=== PATIENT | female | born 1960 | race Caucasian/White ===

== ENCOUNTER → 2016-05-17 | Outpatient (CLI) | payer OTHER ==
--- NOTE | 2016-05-17 11:07 | US ---
EXAMINATION TYPE: US abdomen complete DATE OF EXAM: 05/17/2016 10:13 AM COMPARISON: No previous CLINICAL HISTORY: Intermittent epigastric pain and N/V x 1 year, history of cholecystectomy. EXAM MEASUREMENTS: Liver Length: 13.7cm Gallbladder Wall: surgically absent CBD: 0.4cm Spleen: 10.5cm Right Kidney: 10.2 x 5.9 x 5.5cm Left Kidney: 11.3 x 4.8 x 4.7cm TECHNOLOGIST IMPRESSION: Pancreas: visualized portions wnl, head and tail limited by overlying bowel gas Liver: slightly heterogeneous echotexture Gallbladder: Surgically absent Evidence for sonographic Dinh's sign: No CBD: visualized portions wnl, limited distally by overlying bowel gas Spleen: Within normal limits Right Kidney: 2.3 x 2.0 x 2.3cm isoechoic vascular area inferior pole Left Kidney: Within normal limits Upper IVC: Within normal limits Abd Aorta: visualized portions wnl, limited by overlying bowel gas IMPRESSION: 1. Nonspecific pattern of the liver can be seen with hepatitis or hepatocellular disease including he patitis. 2. Status post cholecystectomy with the common bile duct measuring within normal limits. 3. There is a 2.3 cm isoechoic nodule involving the inferior pole the right kidney recommend follow-u p CT scan or MRI for further evaluation to exclude mass versus lobulated cortex. Normal Values: Liver Length: < 16cm wnl, 17-18cm upper limits, >18cm enlarged Spleen Length = < 13cm Renal Length = 9 - 12cm GB Wall: < 0.3cm CBD: < 0.6cm or < 1.0cm post cholecystectomy
--- NOTE | 2016-05-17 11:30 | MM ---
Reason for exam: history of breast augmentation, asymptomatic. Last mammogram was performed 4 years and 2 months ago. History: Pre-pectoral saline implants in both breasts, September 2004. Took hormonal contraceptives for 4 years beginning at age 18. Physical Findings: Nurse did not find any significant physical abnormalities on exam. MG Diag Mamm Implants LUDIN w CAD Bilateral CC, MLO, and ID view(s) were taken. Prior study comparison: March 18, 2012, CAD bilateral diagnostic mammogram. August 08, 2010, CAD bilateral diagnostic mammogram. There are scattered fibroglandular densities. Finding: There are typically benign calcifications in both breasts. Abnormal morphology of implants correlate for implant injury. These results were verbally communicated with the patient and result sheet given to the patient on 05/17/16. ASSESSMENT: Incomplete: need additional imaging evaluation, BI-RAD 0 RECOMMENDATION: Breast MRI of both breasts.
--- NOTE | 2016-05-17 12:15 | XR ---
EXAMINATION TYPE: XR chest 2V DATE OF EXAM: 05/17/2016 9:39 AM COMPARISON: Prior chest x-ray third of April 2011 HISTORY: Dizziness, weakness, abdominal pain, smoker TECHNIQUE: Frontal and lateral views of the chest are obtained. FINDINGS: Linear areas of increased attenuation may represent pleural thickening, scarring. Post res t prosthesis change noted incidentally, surgical clips in the upper abdomen. No pneumothorax or pleur al effusion. Cardiac mediastinal silhouette, pulmonary vascularity and iván within normal limits acco unting for rotation. No evident pneumonia. IMPRESSION: No acute cardiopulmonary process.
== END | disposition home or self-care (01) ==
LOC: RADUSWWP 09:19
PROVIDERS: ATTEND Family Medicine
DX: R92.8 Other abnormal and inconclusive findings on diagnostic imaging of breast (principal); N28.89 Other specified disorders of kidney and ureter; R10.10 Upper abdominal pain, unspecified
CPT/HCPCS: 71020; 76700; G0204

== ENCOUNTER → 2016-05-31 | Outpatient (CLI) | payer OTHER ==
--- NOTE | 2016-05-31 08:57 | CT ---
EXAMINATION TYPE: CT abdomen w con DATE OF EXAM: 05/31/2016 8:30 AM REFERENCE: Previous ultrasound dated 05/17/2016. HISTORY: R19.00 intra abdominal swelling HISTORY: Abn US of liver and kidney REFERENCE: NONE CT DLP: 1159 mGy Automated exposure control for dose reduction was used. TECHNIQUE: Helical acquisition through the abdomen and pelvis was obtained following the oral ingesti on of with Oral Contrast and following intravenous administration of 100 mL of Omnipaque 300. The mora a was reformatted in axial, coronal and sagittal projections. FINDINGS: There is a small amount of right basilar airspace disease which may represent atelectasis or pneumonia. There is some atelectatic change present in the right middle lobe. There is no pleural fluid. There is some pericardial thickening measuring 9 mm which may represent thickening or fluid. Within the abdomen, the gallbladder has been removed. The liver and spleen are normal. Both adrenal glands are normal. Both kidneys demonstrate function and appear morphologically normal. No mass lesion is seen in the in ferior pole of the right kidney. The pancreas is unremarkable. There is no significant retroperitoneal adenopathy. There is moderate fecal stasis within the colon. Small bowel loops are normal. No free fluid and no free air is seen. IMPRESSION: 1. NO RENAL LESION IS IDENTIFIED. 2. RIGHT BASILAR AIRSPACE DISEASE MAY REPRESENT ATELECTASIS OR PNEUMONIA. 3. 9 MM OF PERICARDIAL THICKENING OR FLUID. 4. STATUS POST CHOLECYSTECTOMY. 5. MODERATE FECAL STASIS.
== END | disposition home or self-care (01) ==
LOC: RADCTMAIN 07:32
PROVIDERS: ATTEND Family Medicine
DX: K56.41 Fecal impaction (principal); Z90.49 Acquired absence of other specified parts of digestive tract
CPT/HCPCS: 74160; 36415; Q9967

== ENCOUNTER → 2016-06-06 | Outpatient (CLI) | payer OTHER ==
--- NOTE | 2016-06-11 14:56 | BMR ---
EXAMINATION TYPE: MR breast BILAT wo/w con DATE OF EXAM: 06/06/2016 11:45 AM COMPARISON: Mammogram dated 17 May 2016 HISTORY: abn findings on diagnostic imaging of breast TECHNIQUE: A series of fat and water weighted images in the long and short axis views of both breasts are obtained in conjunction with dynamic contrast MRI with subtraction technique. The patient was i njected with 15 mL intravenous MultiHance gadolinium contrast. Three-dimensional and additional pos tprocessing imaging is created on independent workstation and reviewed during official interpretation of this study. REFERENCE: Current mammogram FINDINGS: The right and left breast show predominantly fatty replaced appearance. There is no suspici ous adenopathy within the axilla. Bilateral saline breast implants are noted. Calcification within th e left breast causes some susceptibility artifact anterior to the breast implant. The distortion of t he breast implant on the left is noted on MRI and is compatible with intracapsular rupture. There is no extracapsular rupture, no extravasation of either breast implant is noted. There is some redundanc y also noted within the right implant which may represent an intracapsular rupture as well versus senait e contraction of the capsule causing some redundancy. There is no suspicious enhancement on dynamic imaging. No evident suspicious mass like enhancement. IMPRESSION: Bilateral benign breast MRI, BI-RADS 2. Findings suggest intracapsular rupture on the left, possibly on the right.
== END | disposition home or self-care (01) ==
LOC: RADMRIMAIN 10:04
PROVIDERS: ATTEND Family Medicine
DX: R92.8 Other abnormal and inconclusive findings on diagnostic imaging of breast (principal)
CPT/HCPCS: 0159T; C8908; A9577; 77059

== ENCOUNTER → 2018-01-02 | Outpatient (CLI) | payer OTHER ==
--- NOTE | 2018-01-03 13:42 | CT ---
EXAMINATION TYPE: CT abdomen w con DATE OF EXAM: 01/02/2018 COMPARISON: CT abdomen 05/31/2016 HISTORY: Abdominal pain CT DLP: 630.2 mGycm Automated exposure control for dose reduction was used. TECHNIQUE: Helical acquisition of images was performed from the lung bases through the top of iliac crest to include entire abdomen. CONTRAST: Performed with Oral Contrast and with IV Contrast, patient injected with 100 mL of Isovue M300. FINDINGS: Mass at the inferior aspect of the left breast incompletely visualized on prior exam is not seen on today's exam and likely related to breast implant. LUNG BASES: No significant abnormality is appreciated. LIVER/GB: Liver shows low attenuation likely due to hepatic steatosis, patient is post cholecystectom y.. PANCREAS: No significant abnormality is seen. SPLEEN: No significant abnormality is seen. ADRENALS: No significant abnormality is seen. KIDNEYS: No significant abnormality is seen. BOWEL: Postop changes are noted in the midline to the bowel as on prior no evident bowel obstruction . Contrast has not coursed distally within the small bowel possibly due to timing of the contrast inj ection however. The appendix is seen, large lipoma at the level of the terminal ileum is noted as on prior. LYMPH NODES: No significant abnormality is appreciated. OSSEOUS STRUCTURES: No significant abnormality is seen. FREE AIR: No Free Air visible ASCITES: None visible. RETROPERITONEAL ADENOPATHY: No Retroperitoneal Adenopathy visible. OTHER: Atheromatous change is mild within the aorta. IMPRESSION: NO ACUTE ABNORMALITY. POSTOP CHANGES. POSSIBLE HEPATIC STEATOSIS. ADDITIONAL FINDINGS ABOVE.
== END | disposition home or self-care (01) ==
LOC: RADCTMAIN 17:00
PROVIDERS: ATTEND Family Medicine
DX: I70.0 Atherosclerosis of aorta (principal); R93.2 Abnormal findings on diagnostic imaging of liver and biliary tract; D17.39 Benign lipomatous neoplasm of skin and subcutaneous tissue of other sites; Z90.49 Acquired absence of other specified parts of digestive tract; Z98.890 Other specified postprocedural states
CPT/HCPCS: 74160; Q9967

== ENCOUNTER → 2018-01-26 | Outpatient (CLI) | payer OTHER ==
[2018-01-26 15:18] VITALS: BP 113/71; PULSE 94; BMI 30.9
--- NOTE | 2018-01-26 16:02 | P.GSHP ---
History of Present Illness H&P Date: 01/26/18 The patient is a 57 year old white female with a complaint of right breast soreness at the inferior aspect of the breast. She also complains of white discharge from the nipple recently. She has bilateral breast implants since 2004, this was done for cosmesis. On her most recent radiograph which was an MRI done May 2016 there was some concern of intracapsular rupture on the left and possibly also on the right. The patient is not complainng of any masses in her breast. Family History: 1. paternal grandmother: lung cancer 2. paternal grandfather: leukemia 3. maternal grandfather: ? cancer between heart and lung Hormonal history: Menarche: 14 Pregnancies: 4 pregnancies, 4 children, first born at 24, patient breast fed all of her children Menopause: 53 control pills:none hormones: none Past Surgical History: 1. 2. gallbladder 3. bowel resection - blockage no cancer, hernia's Past medical history: 1. depression Social smoke: 1PPD for 40 years alcohol: none drugs: none - Constitutional Constitutional: Reports sweats - EENT Eyes: denies blurred vision, denies pain Ears: deny: decreased hearing, tinnitus Ears, nose, mouth and throat: Denies headache, Denies sore throat - Breasts Breasts: bilateral: as per HPI - Cardiovascular Cardiovascular: Denies chest pain, Denies shortness of breath - Respiratory Comment: smoker Respiratory: Reports cough - Gastrointestinal Gastrointestinal: Reports abdominal pain - Genitourinary (Female) Genitourinary: Denies dysuria, Denies hematuria - Menstruation Menstruation: Reports postmenopausal - Musculoskeletal Musculoskeletal: Denies myalgias - Integumentary Integumentary: Reports rash, Denies pruritus - Neurological Neurological: Denies numbness, Denies weakness - Psychiatric Psychiatric: Reports depression - Endocrine Endocrine: Denies fatigue, Denies weight change - Hematologic/Lymphatic Comment: none - Allergic/Immunologic Comment: none Past Medical History Past Medical History: GERD/Reflux Additional Past Medical History / Comment(s): DIARRHEA., HAVING PAIN IN STOMACH ,REFLUX WITH NAUSEA AND VOMITING. History of Any Multi-Drug Resistant Organisms: None Reported Past Surgical History: Appendectomy, Bowel Resection, Section, Cholecystectomy, Hernia Repair, Tubal Ligation Additional Past Surgical History / Comment(s): HERNIATED BOWEL REQUIRED BOWEL RESECTION. Past Anesthesia/Blood Transfusion Reactions: No Reported Reaction Additional Past Anesthesia/Blood Transfusion Reaction / Comment(s): HX OF BLOOD TRANSFUSION-NO REACTION Past Psychological History: Anxiety, Bipolar, Depression Additional Psychological History / Comment(s): NO PRIOR COMPLICATIONS WITH BLOOD TRANSFUSION Smoking Status: Current every day smoker Past Alcohol Use History: None Reported Additional Past Alcohol Use History / Comment(s): STARTED SMOKING AT AGE 18. SMOKES 1/2-1 PPD. Past Drug Use History: None Reported - Past Family History Mother Family Medical History: No Reported History Father Additional Family Medical History / Comment(s): COMMITTED SUICIDE AT AGE 28 Medications and Allergies Home Medications Medication Instructions Recorded Confirmed Type ALPRAZolam [Xanax] 1 mg PO TID PRN 02/15/15 01/26/18 History QUEtiapine [SEROquel] 400 mg PO HS 02/15/15 01/26/18 History lamoTRIgine [LaMICtal] 100 mg PO HS 01/16/16 01/26/18 History Allergies Allergy/AdvReac Type Severity Reaction Status Date / Time No Known Allergies Allergy Verified 01/18/16 12:03 Surgical - Exam Vital Signs Pulse BP Pulse Ox 94 113/71 99 01/26/18 15:12 01/26/18 15:12 01/26/18 15:12 - General well developed, well nourished, no distress - Eyes normal ocular movement, no icteric - ENT no hearing loss, no congestion - Neck no masses, trachea midline - Respiratory normal respiratory effort, clear to auscultation - Cardiovascular Rhythm: regular Heart Sounds: normal: S1, S2 - Abdomen Abdomen: soft, non tender, no guarding, no rigid, no rebound - Neurologic no disoriented, no combative - Musculoskeletal normal gait, normal posture - Psychiatric oriented to time, oriented to person, oriented to place, speech is normal, memory intact Breast examination: Right breast: Multi-positional exam reveals scars from prior breast lift and implant the patient has an implant in place which appears to be in a unusual location causing some problems with the contour of the breast Right axilla: No adenopathy of concern Left breast: Multi-positional exam reveals scars from prior breast lift and implant placement, the implant appears to be in a unusual location again causing some problems with the contour of the breast Left axilla: No adenopathy of concern Assessment and Plan Assessment: Impression: 1. Bilateral breast implants possibly some defect in the contour of the implants 2. Abnormal contour the breast related to implant placement 3. Fibrocystic breast changes 4. Nicotine dependence 5. Depression Plan: 1. Would get bilateral diagnostic breast mammograms to be followed as possible by breast MRI 2. I have had discussion with the patient regarding removal of the implants 3. Medical management of depression 4. Follow-up Dr. Meléndez after bilateral mammograms/breast MRI Cc: Dr. Eaton
== END ==
LOC: WWCWWP 14:31
PROVIDERS: ATTEND Surgery
DX: Z53.9 Procedure and treatment not carried out, unspecified reason (principal)

== ENCOUNTER → 2018-02-04 | Outpatient (CLI) | payer OTHER ==
--- NOTE | 2018-02-05 09:39 | MM ---
Reason for exam: additional evaluation requested from prior study. Last mammogram was performed 1 year and 9 months ago. History: Pre-pectoral saline implants in both breasts, September 2004. Took hormonal contraceptives for 4 years beginning at age 18. Physical Findings: Nurse did not find any significant physical abnormalities on exam. MG Diag Mamm Implants LUDIN w CAD Bilateral CC, MLO, and ID view(s) were taken. Prior study comparison: May 17, 2016, bilateral MG diag mamm implants LUDIN w CAD. March 18, 2012, CAD bilateral diagnostic mammogram. The breast tissue is heterogeneously dense. This may lower the sensitivity of mammography. Stable benign calcifications. Bilateral implants are intact. No significant new findings when compared with previous films. These results were verbally communicated with the patient and result sheet given to the patient on 02/04/18. ASSESSMENT: Benign, BI-RAD 2 RECOMMENDATION: Routine screening mammogram of both breasts in 1 year. Manage patient on a clinical basis.
== END | disposition home or self-care (01) ==
LOC: RADMAMWWP 14:26
PROVIDERS: ATTEND Surgery
DX: N64.4 Mastodynia (principal); R92.8 Other abnormal and inconclusive findings on diagnostic imaging of breast
CPT/HCPCS: 77066

== ENCOUNTER → 2018-02-12 | Outpatient (CLI) | payer OTHER ==
[2018-02-12 15:30] VITALS: BP 102/65; PULSE 95; BMI 29.2
--- NOTE | 2018-02-12 16:03 | P.PN ---
Subjective Progress Note Date: 02/12/18 The patient comes in today for results of her mammogram. Bilateral mammogram was performed [id number]. The bilateral mammogram has stable benign calcifications. Bilateral implants are intact. At this time the patient does not have complaints related to her breast or the implants. The implants have an unusual contour however at this time they're not bothering the patient. She did not have breast MRI but there is no indication on mammogram report that the implants are ruptured. Time we will follow the patient conservatively. She does not wish the implants to be removed as she is concerned about the contour of her breast if they were removed. We will therefore follow conservatively. The patient notices anything of concern she will call us immediately. Impression: 1. Bilateral saline breast implants possibly some defect in the contour of the implants not noted on recent mammogram 2. Fibrocystic breast changes 3. Nicotine dependence 4. Depression Plan: 1. Repeat bilateral mammogram and physician exam in 1 year 2. At this time patient does not wish the implants to be removed 3. At this time the patient does not wish to pursue breast MRI to help determine if the implants are ruptured CC: Dr. Eaton Objective - Vital Signs Vital signs: Vital Signs Temp Pulse 95 02/12/18 15:17 Resp BP 102/65 02/12/18 15:17 Pulse Ox 98 02/12/18 15:17 Intake & Output 02/11/18 02/12/18 02/12/18 18:59 06:59 18:59 Weight 74.843 kg
== END | disposition home or self-care (01) ==
LOC: WWCWWP 14:55
PROVIDERS: ATTEND Surgery
DX: Z53.9 Procedure and treatment not carried out, unspecified reason (principal)

== ENCOUNTER 2019-12-09 08:49 | Day surgery (SDC) | payer OTHER ==
[2019-12-07 15:46] VITALS: BMI 29.0
[~2019-12-09 08:49] MED LIST: LACTATED RINGERS 1,000 ML IV SCH; LIDOCAINE 1% (10MG/ML) FOR IV START INTRADERMA PRN
[2019-12-09 09:23] VITALS: RESP 16; TEMP 97.7
[2019-12-09] MEDS ORDERED: LIDOCAINE 1% INJ 10MG/ML (20 ML MDV) ONE (10:18)
[2019-12-09] MEDS ORDERED: PROPOFOL 10 MG/ML 20 ML VIAL IV ONE (10:18)
--- NOTE | 2019-12-09 10:20 | P.GSHP ---
History of Present Illness H&P Date: 12/09/19 Chief Complaint: History of colon polyps, peptic ulcer disease This a 59-year-old female referred from Dr. mtz. Patient has safer EGD and colonoscopy. She's history of colon polyps and peptic ulcer disease Past Medical History Past Medical History: GERD/Reflux Additional Past Medical History / Comment(s): CHANGE IN BOWEL MOVEMENTS., HAVING PAIN IN STOMACH ,REFLUX WITH NAUSEA AND VOMITING. History of Any Multi-Drug Resistant Organisms: None Reported Past Surgical History: Appendectomy, Bowel Resection, Breast Surgery, Section, Cholecystectomy, Hernia Repair, Tubal Ligation Additional Past Surgical History / Comment(s): HERNIATED BOWEL REQUIRED BOWEL RESECTION., BREAST IMPLANTS, Past Anesthesia/Blood Transfusion Reactions: No Reported Reaction Additional Past Anesthesia/Blood Transfusion Reaction / Comment(s): HX OF BLOOD TRANSFUSION-NO REACTION Smoking Status: Current every day smoker - Past Family History Mother Family Medical History: No Reported History Father Additional Family Medical History / Comment(s): COMMITTED SUICIDE AT AGE 28 Medications and Allergies Home Medications Medication Instructions Recorded Confirmed Type Doxepin [SINEquan] 25 mg PO HS 12/07/19 12/07/19 History OXcarbazepine [Trileptal] 300 mg PO HS 12/07/19 12/07/19 History QUEtiapine FUMARATE [SEROquel] 900 mg PO HS 12/07/19 12/07/19 History lamoTRIgine [LaMICtal] 200 mg PO DAILY 12/07/19 12/07/19 History Allergies Allergy/AdvReac Type Severity Reaction Status Date / Time No Known Allergies Allergy Verified 12/09/19 09:11 Surgical - Exam Vital Signs Temp Pulse Resp BP Pulse Ox 97.7 F 102 H 16 110/63 96 12/09/19 09:17 12/09/19 09:17 12/09/19 09:17 12/09/19 09:17 12/09/19 09:17 - General well developed, well nourished, no distress - Eyes PERRL - ENT normal pinna - Neck no masses - Respiratory normal expansion - Cardiovascular Rhythm: regular - Abdomen Abdomen: soft, non tender Assessment and Plan Assessment: History of peptic ulcer disease and colon polyps. We'll perform EGD colonoscopy.
--- NOTE | 2019-12-09 10:44 | P.OP ---
Date of Procedure: 12/09/19 Preoperative Diagnosis: History of colon polyps History of peptic ulcer disease Postoperative Diagnosis: Antral gastritis Right colon polyp Mild diverticulosis Procedure(s) Performed: EGD Colonoscopy Anesthesia: MAC Surgeon: Darron Bonilla Pathology: other (Antrum, right colon polyp) Disposition: PACU Description of Procedure: The patient's placed on the endoscopy table in the lateral position. She received IV sedation. The gastroscope placed oropharynx and passed in the esophagus into the stomach. Scope was then placed through the pylorus. The first and second portion of the duodenum appeared normal. Scope was then brought back the antrum this. Mildly inflamed. A biopsies performed. The scope was unretroflexed and remainder of the stomach appeared normal. The GE junction was at 40 cm the distal esophagus appeared normal. The proximal esophagus. Normal. Scope was withdrawn for patient. Next digital rectal exam was performed which revealed a few external hemorrhoids. The flexible colonoscope was then placed patient anus passed throughout the entire colon. The ileocecal valve was visualized. The cecum, appeared normal. In the right colon there was a small polyp was removed with the snare. The remainder the ascending colon transverse colon appeared normal. In the descending and sigmoid colon there was mild diverticulosis. Scope was then brought back the rectum and this appeared normal. Scope withdrawn for patient.
[2019-12-09 11:02] VITALS: BP 114/72; PULSE 85
== END 2019-12-09 11:11 | disposition home or self-care (01) ==
LOC: ORWHC2ENDO 08:49
PROVIDERS: ATTEND Surgery
DX: Z12.11 Encounter for screening for malignant neoplasm of colon (principal); K63.5 Polyp of colon; K57.30 Diverticulosis of large intestine without perforation or abscess without bleeding; K64.4 Residual hemorrhoidal skin tags; K29.50 Unspecified chronic gastritis without bleeding; K21.9 Gastro-esophageal reflux disease without esophagitis; F17.210 Nicotine dependence, cigarettes, uncomplicated; F32.9 Major depressive disorder, single episode, unspecified; Z87.11 Personal history of peptic ulcer disease; Z90.49 Acquired absence of other specified parts of digestive tract; Z98.51 Tubal ligation status; Z98.890 Other specified postprocedural states; Z79.899 Other long term (current) drug therapy
CPT/HCPCS: 88305; 45385; 43239; J2001; J2704

== ENCOUNTER → 2020-04-20 | Outpatient (CLI) | payer OTHER ==
[2020-04-20 14:12] VITALS: BP 128/84; PULSE 87; RESP 18; TEMP 97.9
--- NOTE | 2020-04-20 15:04 | P.PN ---
Subjective Progress Note Date: 04/20/20 Principal diagnosis: ruptured breast implant The patient is a 60 year old white female with a complaint of bilateral breast implants the left side which has a ruptured as per the patient and possibly also rupture on the right. On her most recent radiograph which was an MRI done May 2016 there was some concern of intracapsular rupture on the left and possibly also on the right. She does not feel any lumps masses or nodules in her breast. She has not had a mammogram for several years. The change in the character of the left breast seems to have occurred over the last 2 months. The implants were placed into thousand and 5 days her saline implants and a prepectoral. Her breasts are very difficult to examine either on physical exam or radiographically to rule out a cancer secondary to the implants. Breasts are asymmetric secondary to the left breast implant being ruptured, and hard firm contracture on the right. Caffeine: diet pepsi 40-80 oz/day Nicotine: 1 1/2 PPD for 40 years Theophylline: rarely Family History: 1. paternal grandmother: lung cancer 2. paternal grandfather: leukemia 3. maternal grandfather: ? cancer between heart and lung Hormonal history: Menarche: 14 Pregnancies: 4 pregnancies, 4 children, first born at 24, patient breast fed all of her children Menopause: 53 control pills:none hormones: none Past Surgical History: 1. 2. gallbladder 3. bowel resection - blockage no cancer, hernia's Past medical history: 1. depression 2. ? ruptured breast implants Social smoke: 1PPD for 40 years alcohol: none drugs: none - Constitutional Constitutional: Reports sweats - EENT Eyes: denies blurred vision, denies pain Ears: deny: decreased hearing, tinnitus Ears, nose, mouth and throat: Denies headache, Denies sore throat - Breasts Breasts: bilateral: as per HPI - Cardiovascular Cardiovascular: Denies chest pain, Denies shortness of breath - Respiratory Comment: smoker Respiratory: Reports cough - Gastrointestinal Gastrointestinal: Reports abdominal pain - Genitourinary (Female) Genitourinary: Denies dysuria, Denies hematuria - Menstruation Menstruation: Reports postmenopausal - Musculoskeletal Musculoskeletal: Denies myalgias - Integumentary Integumentary: Reports rash, Denies pruritus - Neurological Neurological: Denies numbness, Denies weakness - Psychiatric Psychiatric: Reports depression - Endocrine Endocrine: Denies fatigue, Denies weight change - Hematologic/Lymphatic Comment: none - Allergic/Immunologic Comment: none Objective - Vital Signs Vital signs: Vital Signs Temp 97.9 F 04/20/20 14:09 Pulse 87 04/20/20 14:09 Resp 18 04/20/20 14:09 BP 128/84 04/20/20 14:09 Pulse Ox 98 04/20/20 14:09 Intake & Output 04/19/20 04/20/20 04/20/20 18:59 06:59 18:59 Weight 75.296 kg - Constitutional General appearance: Present: average body habitus - EENT Eyes: Present: EOMI ENT: Present: hearing grossly normal - Neck Neck: Present: normal ROM - Respiratory Respiratory: bilateral: CTA - Cardiovascular Rhythm: regular Heart sounds: normal: S1, S2 - Gastrointestinal General gastrointestinal: Present: normal bowel sounds, soft - Integumentary Integumentary: Present: normal turgor - Musculoskeletal Musculoskeletal: Present: gait normal - Psychiatric Psychiatric: Present: A&O x's 3, appropriate affect, intact judgment & insight - Additional findings Additional findings: Breast Exam: BRA: 38DD on the right vs. a 38D on the left inspection: bilateral grade 2 ptosis, marked asymmetry of the breast with a large protuberance on the right breast secondary to displaced implant in the 12 o'clock position Palpation: Right breast: Hard firm mass suspected to be capsular contracture around the implant in the 12 o'clock position approximately 14 x 14 cm in size and tender 8 out of 10 to palpation on the perimeter of the implant Right axilla: No adenopathy of concern Left breast: Multiple positional exam tender related to implant 8 out of 10 at the inferior aspect of the implant no other dominant masses or nodules of concern Left axilla: No adenopathy of concern Assessment and Plan Assessment: Impression: 1. possible ruptured implants 2. depression 3. pain related to implants 8 out of 10 bilateral with palpation 4. Capsular contracture around the right breast implant; possibly on the left as well 5. Fibrocystic breast changes 6. Mastodynia related to breast implants 7. Anxiety secondary to asymmetry of the breast making it difficult to have clothes fit well 8. MRI recommended to evaluate the breast parenchyma, examination very difficult secondary to the implants Plan: 1. Bilateral breast MRI 2. Follow-up after bilateral breast MRI 3. Patient wishes implants to be removed CC: DR. Troncoso encounter 30 minutes, > 50% of time in planning and counselling
== END | disposition home or self-care (01) ==
LOC: WWCWWP 13:52
PROVIDERS: ATTEND Surgery
DX: Z53.9 Procedure and treatment not carried out, unspecified reason (principal)

== ENCOUNTER → 2020-05-17 | Outpatient (CLI) | payer OTHER ==
--- NOTE | 2020-05-18 07:39 | BMR ---
EXAMINATION TYPE: MR breast BILAT wo con DATE OF EXAM: 05/17/2020 COMPARISON: MRI bilateral breasts June 06, 2016 BI-RADS 2. Most recent bilateral breast mammogram February 04, 2018 BI-RADS 2. HISTORY: Evaluate for bilateral breast implant rupture. History of breast lift and saline implants pl aced 2004. Abnormal physical exam. TECHNIQUE: A series of fat and water weighted images in the long and short axis views of both breasts are obtained in conjunction with dynamic contrast MRI with subtraction technique. Exam performed wit hout contrast. Three-dimensional and additional postprocessing imaging is created on independent work station and reviewed during official interpretation of this study. FINDINGS: There is redemonstration of predominantly fatty tissue throughout both breasts. T1 weighted images redemonstrates benign-appearing bilateral axillary lymph nodes. There is redemonstration of s ubglandular bilateral saline implants. Breast size overall remain symmetric. No suspicious skin thick ening bilaterally. Chest wall is intact. Right breast implant redemonstrates similar volume and shape relative to 2017 MRI. Left breast shows interval significant volume loss with irregularity along the margins or the outer contour. Intralumin al contents show group of wavy lines consistent with linguine sign. There is small amount of free ivan ine along the inferior posterior medial aspect of the implant. IMPRESSION: Noncontrast MRI confirms extracapsular (and intracapsular) left breast implant rupture. F inding is new from February 04, 2018 mammogram.
== END | disposition home or self-care (01) ==
LOC: RADMRIMAIN 14:33
PROVIDERS: ATTEND Surgery
DX: T85.49XD Other mechanical complication of breast prosthesis and implant, subsequent encounter (principal)
CPT/HCPCS: 77047

== ENCOUNTER → 2020-06-30 | Outpatient (CLI) | payer OTHER ==
[2020-06-30 16:12] VITALS: BP 146/86; PULSE 98; RESP 18; TEMP 98.2
--- NOTE | 2020-06-30 16:43 | P.PN ---
Subjective Progress Note Date: 06/30/20 Principal diagnosis: Ruptured left breast implant ruptured breast implant The patient is a 60 year old white female with a complaint of bilateral breast implants the left side which has a ruptured as per the patient and possibly also rupture on the right. On her most recent radiograph which was an MRI done May 2016 there was some concern of intracapsular rupture on the left and possibly also on the right. She does not feel any lumps masses or nodules in her breast. She has not had a mammogram for several years. The change in the character of the left breast seems to have occurred over the last 2 months. The implants were placed in 2004 they are saline implants and they are prepectoral. Her breasts are very difficult to examine either on physical exam or radiographically to rule out a cancer secondary to the implants. Breasts are asymmetric secondary to the left breast implant being ruptured, and hard firm contracture on the right. Caffeine: diet pepsi 40-80 oz/day; she sopped two montjhs ago Nicotine: 1 05/13 PPD for 40 years; she stopped two months ago The-bromine: rarely Family History: 1. paternal grandmother: lung cancer 2. paternal grandfather: leukemia 3. maternal grandfather: ? cancer between heart and lung Hormonal history: Menarche: 14 Pregnancies: 4 pregnancies, 4 children, first born at 24, patient breast fed all of her children Menopause: 53 control pills:none hormones: none Past Surgical History: 1. 2. gallbladder 3. bowel resection - blockage no cancer, hernia's Past medical history: 1. depression 2. ? ruptured breast implants 3. GI pain recently Social smoke: /PPD for 40 years; stopped two months ago alcohol: none drugs: none - Constitutional Constitutional: Reports sweats - EENT Eyes: denies blurred vision, denies pain Ears: deny: decreased hearing, tinnitus Ears, nose, mouth and throat: Denies headache, Denies sore throat - Breasts Breasts: bilateral: as per HPI - Cardiovascular Cardiovascular: Denies chest pain, Denies shortness of breath - Respiratory Comment: smoker Respiratory: Reports cough - Gastrointestinal Gastrointestinal: Reports abdominal pain - Genitourinary (Female) Genitourinary: Denies dysuria, Denies hematuria - Menstruation Menstruation: Reports postmenopausal - Musculoskeletal Musculoskeletal: Denies myalgias - Integumentary Integumentary: Reports rash, Denies pruritus - Neurological Neurological: Denies numbness, Denies weakness - Psychiatric Psychiatric: Reports depression - Endocrine Endocrine: Denies fatigue, Denies weight change - Hematologic/Lymphatic Comment: none - Allergic/Immunologic Comment: none Objective - Vital Signs Vital signs: Vital Signs Temp 98.2 F 06/30/20 16:08 Pulse 98 06/30/20 16:08 Resp 18 06/30/20 16:08 BP 146/86 06/30/20 16:08 Pulse Ox 98 06/30/20 16:08 - Constitutional General appearance: Present: average body habitus - EENT Eyes: Present: EOMI ENT: Present: hearing grossly normal - Neck Neck: Present: normal ROM - Respiratory Respiratory: bilateral: CTA - Cardiovascular Rhythm: regular Heart sounds: normal: S1, S2 - Gastrointestinal General gastrointestinal: Present: normal bowel sounds, soft - Integumentary Integumentary: Present: normal turgor - Psychiatric Psychiatric: Present: A&O x's 3, appropriate affect, intact judgment & insight - Additional findings Additional findings: breast exam: BRA: 38DD right, left 38D inspection: asymmetry of the breast palpation: right breast: Hard firm mass suspected to be a capsular contracture around the implant in the 12 o'clock position, approximately 14 x 14 cm in size and tender to palpation in the perimeter of the implant Right axilla: No adenopathy of concern Left breast: Multiple positional exam tender related to the implant at the inferior aspect of the implant no other dominant masses or nodules of concern Left axilla: No adenopathy of concern Assessment and Plan Assessment: Impression: 1. Extracapsular intracapsular left breast implant rupture 2. Depression 3. Pain related to the implants 8 out of 10 bilaterally with palpation 4. Capsular contracture on the right breast implant 5. Fibrocystic breast changes 6. Mastodynia 7. Anxiety related to the asymmetry of the breast Plan: 1. Bilateral breast implant removal. 2. Medical clearance Encounter 20 minutes time spent in his other examination, reviewing medical records, and counseling. The patient has a left breast ruptured implant, and a contracture in the right breast implant. These are very uncomfortable for the patient and she wishes them to be removed. She understands that she will have smaller breasts after the procedure. No lift will be done at the time of the pr ocedure. She is given the option of seeing a plastic surgeon and declined. The patient understands the risks include but are not limited to bleeding, infection, reaction to the anesthetic, cosmetic decrease in size of the breast, and possible (sloughing af the skin at the nipple aerolar complex.
--- NOTE | 2020-07-05 08:54 | P.PN ---
Progress Note - Text Progress Note Date: 07/05/20 This is a letter to whom it may concern for the insurance company: Soheila is a 60-year-old white female who had bilateral breast implants many years ago. She has developed a rupture of the implant on the left side evidenced by MRI. Additionally she has severe Yanes class IV contracture of the implant on the right. She has severe pain in both her breast related to the implants. The pain is described as an 8 out of 10. Her breasts are very difficult to examine either on physical exam or radiographically secondary to the implants. She is unable to undergo mammograms and her physical exam is unreliable secondary to the implants. The breast are markedly asymmetric. She is experiencing psychological distress and depression related to the implants. At this time she wishes removal of the implants which will not be replaced. The removal of the implants is not for cosmetic reasons. Sincerely Dr. Ashlie Chou
== END | disposition home or self-care (01) ==
LOC: WWCWWP 15:55
PROVIDERS: ATTEND Surgery
DX: Z53.9 Procedure and treatment not carried out, unspecified reason (principal)

== ENCOUNTER 2020-07-05 22:55 | Inpatient (IN) | payer MEDICAID, OTHER ==
--- NOTE | 2020-07-05 23:06 | ED ---
Psych HPI - General Chief Complaint: Psychiatric Symptoms Stated Complaint: Mental health Time Seen by Provider: 07/05/20 23:06 Source: police, RN notes reviewed, old records reviewed Mode of arrival: EMS - History of Present Illness Initial Comments: This is a 52-year-old female DEL" her petition. Patient is a poor strain secondary to severe delirium and delusions. Patient speaks with) sentences at length with no regard to questioning MD Complaint: altered mental status, other (delirium and delusional) -: unknown Associated Psychiatric Symptoms: racing thoughts, auditory hallucinations, delusions Quality: constant Improves With: none Worsens With: none Associated Symptoms: denies other symptoms Treatments Prior to Arrival: placed on mental health hold - Related Data Home Medications Medication Instructions Recorded Confirmed OXcarbazepine [Trileptal] 300 mg PO HS 12/07/19 06/30/20 QUEtiapine FUMARATE [SEROquel] 900 mg PO HS 12/07/19 06/30/20 lamoTRIgine [LaMICtal] 200 mg PO DAILY 12/07/19 06/30/20 Allergies Allergy/AdvReac Type Severity Reaction Status Date / Time No Known Allergies Allergy Verified 07/05/20 23:02 Review of Systems ROS Statement: Those systems with pertinent positive or pertinent negative responses have been documented in the HPI. ROS Other: All systems not noted in ROS Statement are negative. Past Medical History Past Medical History: GERD/Reflux Additional Past Medical History / Comment(s): CHANGE IN BOWEL MOVEMENTS., HAVING PAIN IN STOMACH ,REFLUX WITH NAUSEA AND VOMITING. History of Any Multi-Drug Resistant Organisms: None Reported Past Surgical History: Appendectomy, Bowel Resection, Breast Surgery, Section, Cholecystectomy, Hernia Repair, Tubal Ligation Additional Past Surgical History / Comment(s): HERNIATED BOWEL REQUIRED BOWEL RESECTION., BREAST IMPLANTS, Past Anesthesia/Blood Transfusion Reactions: No Reported Reaction Additional Past Anesthesia/Blood Transfusion Reaction / Comment(s): HX OF BLOOD TRANSFUSION-NO REACTION Past Psychological History: Anxiety, Bipolar, Depression Smoking Status: Current some day smoker Past Alcohol Use History: None Reported Past Drug Use History: None Reported - Past Family History Mother Family Medical History: No Reported History Father Additional Family Medical History / Comment(s): COMMITTED SUICIDE AT AGE 28 General Exam Limitations: no limitations General appearance: alert, in no apparent distress, anxious, in distress Head exam: Present: atraumatic, normocephalic, normal inspection Eye exam: Present: normal appearance, PERRL, EOMI. Absent: scleral icterus, conjunctival injection, periorbital swelling ENT exam: Present: normal exam, mucous membranes moist Neck exam: Present: normal inspection. Absent: tenderness, meningismus, lymphadenopathy Respiratory exam: Present: normal lung sounds bilaterally. Absent: respiratory distress, wheezes, rales, rhonchi, stridor Cardiovascular Exam: Present: normal rhythm, tachycardia, normal heart sounds. Absent: systolic murmur, diastolic murmur, rubs, gallop, clicks GI/Abdominal exam: Present: soft, normal bowel sounds. Absent: distended, tenderness, guarding, rebound, rigid Extremities exam: Present: normal inspection, full ROM, normal capillary refill. Absent: tenderness, pedal edema, joint swelling, calf tenderness Back exam: Present: normal inspection Neurological exam: Present: alert, oriented X3, CN II-XII intact Psychiatric exam: Present: normal affect, normal mood Skin exam: Present: warm, dry, intact, normal color. Absent: rash Course Vital Signs 07/05/20 07/06/20 22:57 05:23 Temperature 98.3 F Pulse Rate 126 H 96 Respiratory 20 18 Rate Blood Pressure 128/84 97/84 O2 Sat by Pulse 96 99 Oximetry - Reevaluation(s) Reevaluation #1: 07/06/20 06:17 Medical record is reviewed 07/06/20 06:17 Medically clear for psychiatric evaluation Reevaluation #2: 07/06/20 06:25 I did repeat evaluation of the patient, to fill a clinical certification Medical Decision Making - Medical Decision Making 52 female who was seen and evaluated psychiatry here in the ER, patient will be admitted for psychiatric evaluation and treatment - Lab Data Lab Results 07/06/20 Range/Units 00:39 Urine Color Yellow Urine Appearance Turbid H (Clear) Urine pH 6.0 (5.0-8.0) Ur Specific [place] 1.019 (1.001-1.035) Urine Protein 1+ H (Negative) Urine Glucose (UA) Negative (Negative) Urine Ketones 1+ H (Negative) Urine Blood Negative (Negative) Urine Nitrite Negative (Negative) Urine Bilirubin 1+ H (Negative) Urine Urobilinogen 2.0 (<2.0) mg/dL Ur Leukocyte Esterase Moderate H (Negative) Urine RBC 14 H (0-5) /hpf Urine WBC 34 H (0-5) /hpf Urine WBC Clumps Many H (None) /hpf Ur Squamous Epith Cells 57 H (0-4) /hpf Amorphous Sediment Rare H (None) /hpf Urine Bacteria Moderate H (None) /hpf Hyaline Casts 59 H (0-2) /lpf Urine Mucus Moderate H (None) /hpf Urine Opiates Screen Not Detected (NotDetected) Ur Oxycodone Screen Not Detected (NotDetected) Urine Methadone Screen Not Detected (NotDetected) Ur Propoxyphene Screen Not Detected (NotDetected) Ur Barbiturates Screen Not Detected (NotDetected) U Tricyclic Antidepress Not Detected (NotDetected) Ur Phencyclidine Scrn Not Detected (NotDetected) Ur Amphetamines Screen Not Detected (NotDetected) U Methamphetamines Scrn Not Detected (NotDetected) U Benzodiazepines Scrn Detected H (NotDetected) Urine Cocaine Screen Not Detected (NotDetected) U Marijuana (THC) Screen Not Detected (NotDetected) Disposition Clinical Impression: Acute psychosis, Psychosis Disposition: TRANSFER TO PSYCH HOSP/UNIT Condition: Fair Is patient prescribed a controlled substance at d/c from ED?: No Referrals: None,Stated [Primary Care Provider] - 1-2 days
[2020-07-05] MEDS ORDERED: LORazepam 1 MG TAB PO STA (23:57)
[2020-07-06] MEDS ORDERED: PROCHLORPERAZINE INJ 10 MG/2 ML VIAL IM STA (00:24)
[2020-07-06 00:48] LABS: Amorphous Sediment,Urine Rare /hpf; Appearance,Urine Turbid (Clear); Bacteria,Urine Moderate /hpf; Bilirubin,Urine 1+ (Negative); Blood,Urine Negative (Negative); Color,Urine Yellow; Glucose,Urine (UA) Negative (Negative); Hyaline Casts,Urine 59 /lpf (0-2); Ketones,Urine 1+ (Negative); Leukocyte Esterase,Urine Moderate (Negative); Mucus,Urine Moderate /hpf; Nitrite,Urine Negative (Negative); Protein,Urine 1+ (Negative); RBC,Urine 14 /hpf (0-5); Specific Gravity,Urine 1.019 (1.001-1.035); Squamous Epithelial Cell,Urine 57 /hpf (0-4); WBC,Urine 34 /hpf (0-5)
[2020-07-06 00:58] LABS: Amphetamine Screen,Urine Not Detected (NotDetected); Barbiturate Screen,Urine Not Detected (NotDetected); Benzodiazepines Screen,Urine Detected (NotDetected); Cocaine Screen,Urine Not Detected (NotDetected); Methadone Screen, Urine Not Detected (NotDetected); Opiate Screen,Urine Not Detected (NotDetected); Oxycodone Screen, Urine Not Detected (NotDetected); Phencyclidine Screen,Urine Not Detected (NotDetected); Tricyclic Antidepressant,Urine Not Detected (NotDetected); Urn Cannabinoid Scrn Not Detected (NotDetected)
[2020-07-06] MEDS ORDERED: MAGNESIUM HYDROXIDE 2,400 MG/10 ML CUP PO PRN (09:41)
[2020-07-06] MEDS ORDERED: MAG HYDROX/AL HYDROX/SIMETH 30 ML CUP PO PRN (09:41)
[2020-07-06] MEDS ORDERED: HALOPERIDOL LACTATE 5 MG/ML 1 ML VIAL IM PRN (09:52)
[2020-07-06] MEDS ORDERED: haloperidoL 5 MG TAB PO PRN (09:52)
[2020-07-06] MEDS ORDERED: NAPROXEN 250 MG TAB PO PRN (10:07)
[2020-07-06] MEDS: NICOTINE 14MG/24HR PATCH TRANSDERM SCH (11:09)
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
[2020-07-06] MEDS: SUCRALFATE 1 GM TAB PO SCH ×2 (13:00→17:22)
[2020-07-06] MEDS: LORazepam 1 MG TAB PO PRN (17:22)
[2020-07-06] MEDS: OXcarbazepine 300 MG TAB PO SCH ×2 (17:22→21:12)
[2020-07-06] MEDS: PANTOPRAZOLE 40 MG TABLET PO SCH (17:22)
[2020-07-06] MEDS ORDERED: QUEtiapine 200 MG TAB PO SCH (21:00)
[2020-07-06] MEDS ORDERED: QUEtiapine 400 MG TAB PO SCH (21:00)
[2020-07-06] MEDS ORDERED: QUEtiapine 100 MG TAB PO SCH (21:00)
[2020-07-06 22:13] LABS: Appearance,Urine Clear (Clear); Bilirubin,Urine 1+ (Negative); Blood,Urine Negative (Negative); Color,Urine Yellow; Glucose,Urine (UA) Negative (Negative); Hyaline Casts,Urine 4 /lpf (0-2); Ketones,Urine 1+ (Negative); Leukocyte Esterase,Urine Trace (Negative); Mucus,Urine Many /hpf; Nitrite,Urine Negative (Negative); Protein,Urine 1+ (Negative); RBC,Urine 1 /hpf (0-5); Squamous Epithelial Cell,Urine 3 /hpf (0-4); WBC,Urine 2 /hpf (0-5)
--- NOTE | 2020-07-07 01:21 | P.CONS ---
History of Present Illness - Reason for Consult Consult date: 07/06/20 - History of Present Illness Patient is a 60-year-old female with a PMH of GERD who was brought into the emergency room due to strange behavior and delusions. Patient was admitted to the mental health unit where she was seen and evaluated. The patient had some disorganized thought process during the interview but reported intermittent abdominal pain along with nausea and vomiting for the past 1-2 months. The patient attributes her symptoms strongly to social stressors brought on by her relationships. She reports 5-6 episodes of vomiting and diarrhea daily. Denied mucous or blood in stools. Notes that her stools are watery. Denied additional complaints. She denied fever, chills, cough, nausea, vomiting, chest pain, shortness of breath. Review of Systems Pertinent positives and negatives as discussed in HPI, a complete review of systems was performed and all other systems are negative. Past Medical History Past Medical History: GERD/Reflux Additional Past Medical History / Comment(s): CHANGE IN BOWEL MOVEMENTS., HAVING PAIN IN STOMACH ,REFLUX WITH NAUSEA AND VOMITING. History of Any Multi-Drug Resistant Organisms: None Reported Past Surgical History: Appendectomy, Bowel Resection, Breast Surgery, Section, Cholecystectomy, Hernia Repair, Tubal Ligation Additional Past Surgical History / Comment(s): HERNIATED BOWEL REQUIRED BOWEL RESECTION., BREAST IMPLANTS, Pt. states "L breast imploded and the R implant needs to be removed. Past Anesthesia/Blood Transfusion Reactions: No Reported Reaction Additional Past Anesthesia/Blood Transfusion Reaction / Comm: HX OF BLOOD TRANSFUSION-NO REACTION Past Psychological History: Anxiety, Bipolar, Depression Additional Psychological History / Comment(s): NO PRIOR COMPLICATIONS WITH BLOOD TRANSFUSION Smoking Status: Current every day smoker Past Alcohol Use History: None Reported Additional Past Alcohol Use History / Comment(s): STARTED SMOKING AT AGE 18. SMOKES 1/2-1 PPD. Past Drug Use History: None Reported - Past Family History Mother Family Medical History: No Reported History Father Additional Family Medical History / Comment(s): COMMITTED SUICIDE AT AGE 28 Medications and Allergies Home Medications Medication Instructions Recorded Confirmed Type OXcarbazepine [Trileptal] 300 mg PO TID 12/07/19 07/06/20 History QUEtiapine FUMARATE [SEROquel] 900 mg PO HS 12/07/19 07/06/20 History lamoTRIgine [LaMICtal] 200 mg PO DAILY 12/07/19 07/06/20 History ALPRAZolam [Xanax] 1 mg PO BID PRN 07/06/20 07/06/20 History Naproxen 500 mg PO BID PRN 07/06/20 07/06/20 History Omeprazole 20 mg PO BID 07/06/20 07/06/20 History Ondansetron Odt [Zofran Odt] 4 mg PO Q6H PRN 07/06/20 07/06/20 History Sucralfate [Carafate] 1 gm PO TID 07/06/20 07/06/20 History Allergies Allergy/AdvReac Type Severity Reaction Status Date / Time No Known Allergies Allergy Verified 07/06/20 14:28 Physical Exam Vitals: Vital Signs Temp Pulse Pulse Resp BP BP Pulse Ox 07/06/20 17:32 98.6 F 07/06/20 09:30 98.2 F 103 H 20 98/60 96 07/06/20 08:57 98.2 F 92 18 107/63 96 07/06/20 05:23 96 18 97/84 99 Intake and Output 07/06/20 07/06/20 07/07/20 14:59 22:59 06:59 Other: Weight 62.7 kg General: non toxic, no distress, appears at stated age, normal weight Derm: no unusual rashes/lesions no unusual ecchymoses, warm, dry Head: atraumatic, normocephalic, symmetric Eyes: EOMI, no lid lag, anicteric sclera, pupils equal round reactive to light ENT: Nose and ears atraumatic, no thrush, no pharyngeal erythema Neck: No thyromegaly, no cervical lymphadenopathy, trachea midline, supple Mouth: no lip lesion, mucus membranes moist Cardiovascular: S1S2 reg, no murmur, positive posterior tibial pulse bilateral, no edema, capillary refill less than 2 seconds Lungs: CTA bilateral, no rhonchi, no rales , no accessory muscle use Abdominal: soft, diffuse mild tenderness to palpation, no guarding, no appreciable organomegaly, normal bowel sounds Ext: no gross muscle atrophy, muscle strength 5 out of 5 in all 4 extremities grossly, no contractures, Neuro: CN II-XI grossly intact, light touch intact all 4 extremities, finger to nose within normal limits, Psych: Alert, oriented, disorganized thought process Results Labs: Abnormal Lab Results - Last 24 Hours (Table) 07/06/20 07/06/20 Range/Units 00:39 21:40 Urine Appearance Turbid H (Clear) Urine Protein 1+ H 1+ H (Negative) Urine Ketones 1+ H 1+ H (Negative) Urine Bilirubin 1+ H 1+ H (Negative) Ur Leukocyte Esterase Moderate H Trace H (Negative) Urine RBC 14 H (0-5) /hpf Urine WBC 34 H (0-5) /hpf Urine WBC Clumps Many H (None) /hpf Ur Squamous Epith Cells 57 H (0-4) /hpf Amorphous Sediment Rare H (None) /hpf Urine Bacteria Moderate H (None) /hpf Hyaline Casts 59 H 4 H (0-2) /lpf Urine Mucus Moderate H Many H (None) /hpf U Benzodiazepines Scrn Detected H (NotDetected) Assessment and Plan Plan: Complaints of vomiting and diarrhea -Patient appears to be a poor historian -Advised her to show the RNs when she has another episode of vomiting or diarrhea -Obtain BMP and magnesium History of GERD -Continue with Protonix Psychosis -As per psychiatry Thank you for allowing us to participate in the care of this patient. We will follow peripherally. Do not hesitate to contact us with questions. Someone can be reached from the [facility] hospitalist group at all hours of the day at [phone].
[2020-07-07 07:39] LABS: Basophils % (A) 0 %; Eosinophils # (A) 0.2 k/uL (0-0.7); Eosinophils % (A) 3 %; HCT 39.8 % (34.0-46.0); Lymphocytes # (A) 1.8 k/uL (1.0-4.8); Lymphocytes % (A) 34 %; MCH 31.5 pg (25.0-35.0); MCHC 32.7 g/dL (31.0-37.0); MCV 96.5 fL (80.0-100.0); Mean Platelet Volume 6.7; Monocytes # (A) 0.4 k/uL (0-1.0); Monocytes % (A) 7 %; Neutrophils # (A) 2.9 k/uL (1.3-7.7); Neutrophils % (A) 54 %; Platelet Count 329 k/uL (150-450); RBC 4.13 m/uL (3.80-5.40); RDW 14.3 % (11.5-15.5); WBC 5.4 k/uL (3.8-10.6)
[2020-07-07 07:56] LABS: ALT 52 U/L (4-34); AST 44 U/L (14-36); African American GFR (CKD) >90 (>60 ml/min/1.73 sqM); Albumin 3.7 g/dL (3.5-5.0); Alkaline Phosphatase 51 U/L (38-126); Anion Gap 9 mmol/L; Blood Urea Nitrogen 12 mg/dL (7-17); Carbon Dioxide 23 mmol/L (22-30); Chloride 103 mmol/L (98-107); Cholesterol 156 mg/dL (<200); Glucose 104 mg/dL (74-99); HDL Cholesterol 60 mg/dL (40-60); LDL Cholesterol,Calculated 73 mg/dL (0-99); Magnesium 1.3 mg/dL (1.6-2.3); Non-African American GFR(CKD) >90 (>60 ml/min/1.73 sqM); Potassium 3.2 mmol/L (3.5-5.1); Sodium 135 mmol/L (137-145); Total Bilirubin 0.4 mg/dL (0.2-1.3); Total Protein 6.1 g/dL (6.3-8.2); Triglycerides 113 mg/dL (<150)
[2020-07-07] MEDS: SUCRALFATE 1 GM TAB PO SCH ×3 (08:16→17:30)
[2020-07-07] MEDS: lamoTRIgine 100 MG TAB PO SCH (08:16)
[2020-07-07] MEDS: OXcarbazepine 300 MG TAB PO SCH (08:17)
[2020-07-07] MEDS: PALIPERIDONE 3 MG TAB.ER.24 PO SCH (08:17)
[2020-07-07] MEDS: PANTOPRAZOLE 40 MG TABLET PO SCH ×2 (08:17→17:30)
[2020-07-07] MEDS ORDERED: POTASSIUM CHLORIDE ER 10 MEQ TAB.ER.PRT PO STA (08:18)
[2020-07-07] MEDS: MAGNESIUM OXIDE 400 MG TAB PO SCH ×2 (09:15→21:04)
[2020-07-07] MEDS: NICOTINE 14MG/24HR PATCH TRANSDERM SCH (09:17)
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
[2020-07-07 11:59] LABS: Hemoglobin A1C 5.6 % (4.0-6.0)
[2020-07-07] MEDS: OXcarbazepine 150 MG TAB PO SCH (21:04)
[2020-07-07] MEDS: QUEtiapine 200 MG TAB PO SCH (21:05)
[2020-07-08] MEDS: lamoTRIgine 100 MG TAB PO SCH (07:58)
[2020-07-08] MEDS: PANTOPRAZOLE 40 MG TABLET PO SCH ×2 (07:58→17:02)
[2020-07-08] MEDS: SUCRALFATE 1 GM TAB PO SCH ×3 (07:58→17:02)
[2020-07-08] MEDS: PALIPERIDONE 3 MG TAB.ER.24 PO SCH (07:59)
[2020-07-08] MEDS: MAGNESIUM OXIDE 400 MG TAB PO SCH ×2 (07:59→22:17)
[2020-07-08] MEDS: OXcarbazepine 150 MG TAB PO SCH ×2 (07:59→22:18)
--- NOTE | 2020-07-08 10:22 | P.PN ---
Progress Note - Text Progress Note Date: 07/08/20 Interval history: Patient was seen lying in her bed this morning and was directable and agreeable to speak with expert medical writer. Patient was fairly hyperverbal and talkative with expert medical writer. She spoke about her boyfriend cheating on her several times and how she wants to be tested for herpes and other STDs. She was illogical at times and tangential/circumstantial. She was fairly intrusive and asked expert medical writer "could you examine my breasts". She claims that she was only able to sleep approximately 3-4 hours last night. She claims that she has not been tolerating her new medication well and states that she had to lay down because she was feeling dizzy. She states that she also vomited and feeling dizzy after taking her medications. At this time patient denies any suicidal or homicidal ideations intent or plan. Denies any Auditory or visual hallucinations. Patient denies any side effects from the medications and has been compliant with meds. Mental status exam: General Appearance: Patient appears to be stated age is alert, difficult to redirect, and bizarre. Behavior: No agitated behavior. Patient is difficult to redirect and intrusive Speech: Patient's speech is fluent and nonpressured. Mood/Affect: Mood is "okay", affect is congruent Suicidality/Homicidality: Patient denies having any suicidal or homicidal ideation intent or plan. Perceptions: Patient denies any auditory or visual hallucinations. Though content/process: Patient is tangential/circumstantial, rambles and is talkative. She is illogical at times. Fairly intrusive content. Memory and concentration: AOX3, grossly intact for the purposes of this session Judgment and insight: Poor Assessment/Plan: Continue with current diagnosis. Patient continues to meet criteria for inpatient psychiatric admission for symptom stabilization and safety.Patient will be maintained on current psychotropic medication regimen with the exception of discontinuing paliperidone by mouth as this may be causing adverse effects and an elevation in her heart rate. Will decrease patient's Seroquel to 700 mg daily at bedtime for mood stabilization/psychosis. Monitor for medication compliance and for any psychotropic medication side effects. Will continue to monitor ongoing response to treatment. Encouraged participation in milieu.
[2020-07-08] MEDS ORDERED: QUEtiapine 100 MG TAB PO SCH (21:00)
[2020-07-08] MEDS: LORazepam 1 MG TAB PO PRN (22:17)
[2020-07-08] MEDS: QUEtiapine 200 MG TAB PO SCH (22:18)
[2020-07-09] MEDS: OXcarbazepine 150 MG TAB PO SCH ×2 (08:43→22:21)
[2020-07-09] MEDS: lamoTRIgine 100 MG TAB PO SCH (08:43)
[2020-07-09] MEDS: PANTOPRAZOLE 40 MG TABLET PO SCH ×2 (08:43→17:59)
[2020-07-09] MEDS: SUCRALFATE 1 GM TAB PO SCH ×3 (08:43→17:59)
[2020-07-09] MEDS: MAGNESIUM OXIDE 400 MG TAB PO SCH ×2 (08:43→22:20)
[2020-07-09] MEDS: ACETAMINOPHEN TAB 325 MG TAB PO PRN (09:56)
[2020-07-09] MEDS ORDERED: BENZTROPINE MESYLATE 0.5 MG TAB PO PRN (11:25)
--- NOTE | 2020-07-09 11:29 | P.PN ---
Progress Note - Text Progress Note Date: 07/09/20 Interval history: Patient was seen standing near the nurse's desk this morning and was directable and agreeable to speak with freelance writer. Patient continues to be fairly hyperverbal and talkative with freelance writer. She spoke about her boyfriend cheating on her several times and continues to want an STD test. She continues to endorse paranoia and was illogical/tangential during the conversation. Patient was appearing to be fairly labile and angry with freelance writer about her treatment plan. She was demanding discharge tomorrow and states that "I already signed treatment plan". She was illogical at times and tangential/circumstantial. She also continues to be preoccupied somatically and spoke once again about her breast implants which need to be removed and changed. She claims that she was only able to sleep approximately 1-2 hours last night. She continues to believe that she did not need psychiatric medications and was refusing to take any other antipsychotic medications as it was deemed that Seroquel was not adequately controlling patient's symptoms. Patient began being agitated and irritable with freelance writer and also arguing about the deferral which she had signed and was demanding discharge tomorrow. Patient stormed out of the room and accused freelance writer and Dr. De Guzman of documenting the patient is a schizophrenic. At this time patient denies any suicidal or homicidal ideations intent or plan. Denies any Auditory or visual hallucinations. Patient denies any side effects from the medications and has been compliant with meds. Mental status exam: General Appearance: Patient appears to be stated age is alert, difficult to redirect, and bizarre. Argumentative today. Behavior: No agitated behavior. Patient is difficult to redirect and intrusive. Argumentative Speech: Patient's speech is fluent and nonpressured. Loud at times. Mood/Affect: Mood is "fine", affect is incongruent and irritable. Suicidality/Homicidality: Patient denies having any suicidal or homicidal ideation intent or plan. Perceptions: Patient denies any auditory or visual hallucinations. Though content/process: Patient is tangential/circumstantial, rambles and is talkative. She is illogical at times. Fairly intrusive content. Demanding discharge. Memory and concentration: AOX3, grossly intact for the purposes of this session Judgment and insight: Poor Assessment/Plan: Continue with current diagnosis. Patient continues to meet criteria for inpatient psychiatric admission for symptom stabilization and safety.Will decrease patient's Seroquel to 600 mg daily at bedtime for mood stabilization/psychosis. Event Specialist Food Demonstrator spoke with Dr. Garcia about cross titrating patient's Seroquel with Prolixin as this may have better control over patient's psychiatric symptoms. Started 1 mg twice a day of Prolixin with Cogentin 0.5 mg twice a day when necessary for EPS symptoms. Monitor for medication compliance and for any psychotropic medication side effects. Will continue to monitor ongoing response to treatment. Encouraged participation in milieu.
[2020-07-09] MEDS ORDERED: PALIPERIDONE 6 MG TAB.ER.24 PO SCH (12:00)
[2020-07-09] MEDS: LORazepam 1 MG TAB PO PRN (12:12)
[2020-07-09] MEDS ORDERED: QUEtiapine 200 MG TAB PO SCH ×2 (21:00)
[2020-07-10] MEDS: lamoTRIgine 100 MG TAB PO SCH (08:48)
[2020-07-10] MEDS: PANTOPRAZOLE 40 MG TABLET PO SCH ×2 (08:48→16:46)
[2020-07-10] MEDS: MAGNESIUM OXIDE 400 MG TAB PO SCH (08:48)
[2020-07-10] MEDS: OXcarbazepine 150 MG TAB PO SCH ×2 (08:48→23:59)
[2020-07-10] MEDS: SUCRALFATE 1 GM TAB PO SCH ×3 (08:48→16:46)
[2020-07-10] MEDS: LORazepam 1 MG TAB PO PRN (10:21)
--- NOTE | 2020-07-10 11:18 | P.PN ---
Progress Note - Text Progress Note Date: 07/10/20 Interval History: Patient was seen wandering the hallways and was directable and agreeable to speak with leader writer in the office. Patient reports that she is very upset today. She states that she is upset that she has been diagnosed with schizophrenia/schizoaffective disorder. Patient vehemently denies this diagnosis stating that she is not psychotic and that everything that's happening to her is real. She expresses that it is not "a crime to be orthodox" when discussing what was written on her clinical certificate. The patient states "I had a premonition from God that Cornelius was going to come and hurt me and that is not a crime." The patient states that she does not want to be in the inpatient psychiatric unit much longer and that she is wishing to be discharged because she feels like she is able to help all those that are here showing that she is stable enough for discharge. She has been adherent with her medications and does not report any significant side effects at this time. Before. Psychiatric evaluation could be completed, the patient terminated the interview due to agitation. The patient states that she will contact her assembler faucets. Mental Status Exam: General Appearance: Patient appears to be stated age is alert, directable, and cooperative. The patient is dressed in her home clothes and is wearing multiple necklaces including a rosary. Behavior: Patient is constantly moving in her chair without any agitated behavior. Psychomotor activity is elevated. Eye contact is intermittent. Speech: Patient's speech is fluent and nonpressured. Mood/Affect: Mood is "very upset." Affect is angry and tearful. Suicidality/Homicidality: Unable to assess Perceptions: Unable to assess Though content/process: Paranoid and orthodox delusional thought content is evident. Thought process continues to be circumstantial and repetitive. Memory and concentration: AOX3, grossly intact for the purposes of this session Judgment and insight: Very poor Assessment Schizoaffective disorder, bipolar type Nicotine dependence Plan: -Patient continues to meet criteria for inpatient psychiatric admission for symptom stabilization and safety. The patient has been petitioned and certified. -Medications: Continue Lamictal 20 mg by mouth daily Continue Trileptal 450 mg by mouth twice a day Decrease seroquel to 400 mg at bedtime with plans to continue transitioning the patient to Prolixin. Continue Prolixin 1 mg by mouth twice a day. We will increase this medication tomorrow. We will do a slow cross titration due to age. -When necessary Haldol for agitation/aggression. -NRT - nicotine patch -SW on board for discharge planning. Encouraged the patient to participate in milieu.
[2020-07-10] MEDS: AMOXIC-POT CLAV 875-125MG 1 EACH TAB PO SCH ×2 (11:54→23:59)
[2020-07-10] MEDS ORDERED: ONDANSETRON 4 MG/2 ML VIAL IM STA (22:20)
[2020-07-10] MEDS: QUEtiapine 200 MG TAB PO SCH (23:59)
[2020-07-11] MEDS: SUCRALFATE 1 GM TAB PO SCH ×3 (09:44→17:32)
[2020-07-11] MEDS: MAGNESIUM OXIDE 400 MG TAB PO SCH ×4 (09:44→23:29)
[2020-07-11] MEDS: AMOXIC-POT CLAV 875-125MG 1 EACH TAB PO SCH ×3 (09:44→23:28)
[2020-07-11] MEDS: PANTOPRAZOLE 40 MG TABLET PO SCH ×2 (09:44→17:32)
[2020-07-11] MEDS: lamoTRIgine 100 MG TAB PO SCH ×2 (09:44→10:42)
[2020-07-11] MEDS: OXcarbazepine 150 MG TAB PO SCH ×3 (09:45→23:28)
--- NOTE | 2020-07-11 11:04 | P.PN ---
Progress Note - Text Progress Note Date: 07/11/20 Interval History: Patient was seen resting in bed and spoke with the proposal writer in her room. Patient continues to report that she is very upset. The patient states today that she is frustrated with the hospitalization and that she will refuse medications and stay here "for a year, I don't care." She reports that she feels safe from her ex-partner while admitted on the unit. The patient is adamant that she is not schizophrenic or has any symptoms of psychosis. When inquiring about any suicidal ideation, the patient becomes angry and states that "I'm fearful for my life I would be suicidal! That is a stupid question." She denies any homicidal ideation, intention, and/or plan. She is denying any auditory or visual hallucinations. She reports paranoia but no other delusions at this time. She has been refusing medications but is not reporting any significant medical issues at this time. The patient later approaches this provider in the hallway stating that "men have been screwing me over all my life and you are one of them." Mental Status Exam: General Appearance: Patient appears to be stated age is alert, directable, and intermittently cooperative. The patient is dressed in her home clothes and is wearing multiple necklaces including a rosary. Behavior: Patient is lying in bed without any agitated behavior. Psychomotor activity is elevated. Eye contact is intermittent. Speech: Patient's speech is fluent and nonpressured. Spontaneous. Loud at times. Mood/Affect: Mood is "very upset." Affect is labile from angry to tearful. Suicidality/Homicidality: Patient denies any suicidal or homicidal ideation, intention, and/or plan. Perceptions: Patient denies any auditory or visual hallucinations. Though content/process: Paranoid thought content is evident. Was delusional thoughts are endorsed. Thought process appears to be linear and logical in short conversation. Memory and concentration: AOX3, grossly intact for the purposes of this session Judgment and insight: Very poor Assessment Schizoaffective disorder, bipolar type Nicotine dependence Plan: -Patient continues to meet criteria for inpatient psychiatric admission for symptom stabilization and safety. The patient has been petitioned and certified. A demand for mental health court hearing will be filed today. -Medications: Continue Lamictal 200 mg by mouth daily Continue Seroquel 400 mg by mouth at bedtime Patient has been refusing the following medications: Trileptal 450 mg by mouth twice a day Prolixin 1 mg by mouth twice a day -When necessary Haldol for agitation/aggression. -NRT - nicotine patch -SW on board for discharge planning. Encouraged the patient to participate in milieu.
[2020-07-11] MEDS: LORazepam 1 MG TAB PO PRN (11:51)
[2020-07-11] MEDS ORDERED: ONDANSETRON 4 MG/2 ML VIAL IM STA (21:39)
[2020-07-11] MEDS: QUEtiapine 200 MG TAB PO SCH (23:33)
[2020-07-12] MEDS: PANTOPRAZOLE 40 MG TABLET PO SCH (08:27)
[2020-07-12] MEDS: AMOXIC-POT CLAV 875-125MG 1 EACH TAB PO SCH (08:29)
[2020-07-12] MEDS: MAGNESIUM OXIDE 400 MG TAB PO SCH (08:29)
[2020-07-12] MEDS: SUCRALFATE 1 GM TAB PO SCH ×2 (08:29→12:46)
[2020-07-12] MEDS: lamoTRIgine 100 MG TAB PO SCH (08:29)
[2020-07-12] MEDS: OXcarbazepine 150 MG TAB PO SCH (08:30)
[2020-07-12] MEDS: ACETAMINOPHEN TAB 325 MG TAB PO PRN (08:30)
[2020-07-12] MEDS ORDERED: LORATADINE 10 MG TAB PO STA (09:59)
--- NOTE | 2020-07-12 10:22 | P.PN ---
Progress Note - Text Progress Note Date: 07/12/20 Interval History: Patient was seen resting in bed and spoke with the chart writer in her room. The patient continues to be very upset. The patient states that she is wrongly admitted into the psychiatric unit and it is her ex-partner Cornelius should be admitted. The patient expresses that if it was not for her premonition again he was going to try and kill her, she would not be alive. The patient is also complaining of double vision which she states has been ongoing since her admission. She is denying any chest pain, shortness of breath, or muscle tightness. The patient has been refusing medications, in particular her Prolixin and Seroquel. She did take her Trileptal this morning. She is otherwise not reporting any suicidal or homicidal ideation, intention, and/or plan. She is denying any auditory or visual hallucinations. The patient reports that she is upset that she has to go to court stating that she signed a deferral therefore should not have to was informed that she is not following treatment recommendations. Mental Status Exam: General Appearance: Patient appears to be stated age is alert, directable, and intermittently cooperative. The patient is dressed in her home clothes and is wearing multiple necklaces including a rosary. Behavior: Patient is lying in bed without any agitated behavior. Psychomotor activity is elevated. Eye contact is intermittent but intense. Speech: Patient's speech is fluent and nonpressured. Spontaneous. Loud at times. Mood/Affect: Mood is "very upset." Affect is labile - tearful to malaised. Suicidality/Homicidality: Patient denies any suicidal or homicidal ideation, intention, and/or plan. Perceptions: Patient denies any auditory or visual hallucinations. Though content/process: Paranoid thought content is evident. Rastafari delusional thoughts are endorsed. Thought process appears to be linear and lo gical in short conversation. Memory and concentration: AOX3, grossly intact for the purposes of this session Judgment and insight: Very poor Assessment Schizoaffective disorder, bipolar type Nicotine dependence Plan: -Patient continues to meet criteria for inpatient psychiatric admission for symptom stabilization and safety. The patient has been petitioned and certified. A demand for mental health court hearing was filed. -Recommend Medical team notified of hypokalemia. -Medications: Continue Lamictal 200 mg by mouth daily Patient has been intermittently refusing the following medications: Prolixin 1 mg by mouth twice a day Seroquel 400 mg by mouth at bedtime We will decrease Trileptal to 300 mg twice a day to concern for hyponatremia - will order BMP -When necessary Haldol for agitation/aggression. -NRT - nicotine patch -SW on board for discharge planning. Encouraged the patient to participate in milieu.
[2020-07-12] MEDS ORDERED: ONDANSETRON 4 MG TAB PO PRN (11:12)
[2020-07-12 12:32] VITALS: BP 140/81; PULSE 95; RESP 16; TEMP 98.7
[2020-07-12] MEDS ORDERED: ONDANSETRON ODT 4 MG TAB PO PRN (12:52)
[2020-07-12 13:29] LABS: HCT 41.8 % (34.0-46.0); HGB 13.6 gm/dL (11.4-16.0); MCH 31.1 pg (25.0-35.0); MCHC 32.6 g/dL (31.0-37.0); MCV 95.4 fL (80.0-100.0); Mean Platelet Volume 7.5; Platelet Count 330 k/uL (150-450); RBC 4.38 m/uL (3.80-5.40); RDW 14.1 % (11.5-15.5); WBC 6.3 k/uL (3.8-10.6)
[2020-07-12 14:08] LABS: African American GFR (CKD) >90 (>60 ml/min/1.73 sqM); Anion Gap 10 mmol/L; Blood Urea Nitrogen 6 mg/dL (7-17); Calcium 9.2 mg/dL (8.4-10.2); Carbon Dioxide 22 mmol/L (22-30); Chloride 89 mmol/L (98-107); Glucose 112 mg/dL (74-99); Non-African American GFR(CKD) >90 (>60 ml/min/1.73 sqM); Potassium 4.2 mmol/L (3.5-5.1); Sodium 121 mmol/L (137-145)
[2020-07-12] MEDS: LORazepam 1 MG TAB PO PRN (15:46)
[2020-07-12] MEDS ORDERED: OXcarbazepine 300 MG TAB PO SCH (21:00)
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
== END 2020-07-12 17:02 | disposition short-term general hospital (02) | DRG 885 ==
LOC: EC 22:55 → 3MHU 07-06 09:00
PROVIDERS: ADMIT Psychiatry & Neurology Psychiatry; ATTEND Psychiatry & Neurology Psychiatry
DX: F25.0 Schizoaffective disorder, bipolar type (principal); E87.1 Hypo-osmolality and hyponatremia; Z20.822 Contact with and (suspected) exposure to COVID-19; K21.9 Gastro-esophageal reflux disease without esophagitis; F41.9 Anxiety disorder, unspecified; F17.200 Nicotine dependence, unspecified, uncomplicated; R11.2 Nausea with vomiting, unspecified; F32.9 Major depressive disorder, single episode, unspecified; R19.7 Diarrhea, unspecified; Z79.899 Other long term (current) drug therapy; Z56.0 Unemployment, unspecified; Z81.8 Family history of other mental and behavioral disorders
CPT/HCPCS: 80048; 80053; 80061; 80306; 81001; 81025; 82075; 83036; 83735; 84443; 85025; 85027; 87635; 93005; 96372; 99285

== ENCOUNTER 2020-07-12 15:59 | Inpatient (IN) | payer OTHER ==
[2020-07-12] MEDS ORDERED: ONDANSETRON 4 MG/2 ML VIAL IVP PRN (18:00)
[2020-07-12] MEDS ORDERED: NALOXONE 0.4 MG/ML 1 ML VIAL IV PRN (18:00)
[2020-07-12] MEDS ORDERED: CALCIUM CARBONATE 500 MG CHEWABLE PO PRN (18:00)
[2020-07-12] MEDS ORDERED: LORazepam 0.5 MG TAB PO STA (18:31)
[2020-07-12] MEDS ORDERED: LORazepam 2 MG/ML INJ IV PRN (18:38)
--- NOTE | 2020-07-12 18:51 | P.HPIM ---
History of Present Illness H&P Date: 07/12/20 Chief Complaint: nausea and vomiting Patient is a 60-year-old female with known GERD, intractable nausea and vomiting for the last 2 months, prior bowel obstruction who was hospitalized on the mental health unit secondary to schizoaffective disorder bipolar type. She began having intractable nausea and vomiting. They did see one episode of vomiting with 3 small amounts of bright red material. At that point in time a stat CBC and basic metabolic profile was ordered. CBC came back within normal limits for basic metabolic profile showed sodium of 121. Arrangements were made for admission to the medical floor. Patient was initially seen and examined on the psychiatry unit. She states that since May she has been having issues with nausea and vomiting. It gets worse as her anxiety and stress could worse. The last 2 days she also reports diarrhea. She denies any overt abdominal pain. She states that her acid reflux is also been an issue recently. She denies any overt chest pain, shortness of breath, lightheadedness, dizziness, presyncope, unusual weakness, inability to move, or numbness and tingling. She reports no history of issues a sodium in the past but does report issues with dehydration. She states she has been seen at [facility] several times for her intractable nausea and vomiting. She feels as though it is related to her stress. Pertinent positives and negatives as discussed in HPI, a complete review of systems was performed and all other systems are negative. General: Ill appearing, no acute distress appears at stated age Derm: warm, dry Head: atraumatic, normocephalic, symmetric Eyes: EOMI, no lid lag, anicteric sclera, pupils equal round reactive to light ENT: Nose and ears atraumatic, no thrush, no pharyngeal erythema Neck: No thyromegaly, no cervical lymphadenopathy, trachea midline, supple Mouth: no lip lesion, mucus membranes dry Cardiovascular: S1S2 reg, no murmur, positive posterior tibial pulse bilateral, no edema, capillary refill less than 2 seconds Lungs: clear to ascultation bilateral, no ronchi, no rales, no wheeze, no accessory muscle use, tachypnea Abdominal: soft, nontender to palpation, no guarding, no appreciable organomegaly, normal bowel sounds Ext: no gross muscle atrophy, muscle strength muscle strength 5 out of 5 in all 4 extremities, no contractures Neuro: CN II-XI grossly intact, light touch intact all 4 extremities, finger to nose within normal limits, Psych: Alert, awake, fixator then needed to go to court, tearful, upset and crying Assessment: Intractable nausea and vomiting with diarrhea -Check C. diff -Stop Augmentin as indication is unclear -Zofran -Clear liquid diet Hyponatremia, suspect secondary to dehydration -1 L bolus and start IV normal saline -Check urine and serum osmolality, urine sodium -Nephrology consultation -Sodium every 6 hours -Hold Trileptal as can cause SIADH -Check TSH GERD -PPI, Carafate Schizoaffective disorder, bipolar type -rubber tubing splicer at bedside -Hold Trileptal -Continue with Seroquel, Lamictal -Psychiatry consultation The patient is admitted with an anticipated greater than 2 midnight stay for evaluation of hyponatremia secondary to intractable nausea and vomiting. DVT prophylaxis: SCDs Anticipated discharge date: 2-[address]: Return to mental health unit Past Medical History Past Medical History: GERD/Reflux Additional Past Medical History / Comment(s): CHANGE IN BOWEL MOVEMENTS., HAVING PAIN IN STOMACH ,REFLUX WITH NAUSEA AND VOMITING. History of Any Multi-Drug Resistant Organisms: None Reported Past Surgical History: Appendectomy, Bowel Resection, Breast Surgery, Section, Cholecystectomy, Hernia Repair, Tubal Ligation Additional Past Surgical History / Comment(s): HERNIATED BOWEL REQUIRED BOWEL RESECTION., BREAST IMPLANTS, Pt. states "L breast imploded and the R implant needs to be removed. Past Anesthesia/Blood Transfusion Reactions: No Reported Reaction Additional Past Anesthesia/Blood Transfusion Reaction / Comment(s): HX OF BLOOD TRANSFUSION-NO REACTION Past Psychological History: Anxiety, Bipolar, Depression Additional Psychological History / Comment(s): NO PRIOR COMPLICATIONS WITH BLOOD TRANSFUSION Smoking Status: Former smoker Past Alcohol Use History: None Reported Additional Past Alcohol Use History / Comment(s): STARTED SMOKING AT AGE 18 QUIT 06/01. SMOKES 1/2-1 PPD. Past Drug Use History: None Reported - Past Family History Mother Family Medical History: No Reported History Father Additional Family Medical History / Comment(s): COMMITTED SUICIDE AT AGE 28 Medications and Allergies Home Medications Medication Instructions Recorded Confirmed Type OXcarbazepine [Trileptal] 300 mg PO BID 12/07/19 07/12/20 History QUEtiapine FUMARATE [SEROquel] 400 mg PO HS 12/07/19 07/12/20 History lamoTRIgine [LaMICtal] 200 mg PO DAILY 12/07/19 07/12/20 History ALPRAZolam [Xanax] 1 mg PO BID PRN 07/06/20 07/12/20 History Naproxen 500 mg PO BID PRN 07/06/20 07/12/20 History Omeprazole 20 mg PO BID 07/06/20 07/12/20 History Ondansetron Odt [Zofran Odt] 4 mg PO Q6H PRN 07/06/20 07/12/20 History Sucralfate [Carafate] 1 gm PO TID 07/06/20 07/12/20 History Amoxic-Pot Clav 875-125Mg 1 tab PO BID 07/12/20 07/12/20 History [Augmentin 875-125] Allergies Allergy/AdvReac Type Severity Reaction Status Date / Time No Known Allergies Allergy Verified 07/12/20 17:38 Physical Exam Osteopathic Statement: *. No significant issues noted on an osteopathic structural exam other than those noted in the History and Physical/Consult. Vitals: Intake and Output 07/12/20 07/12/20 07/12/20 06:59 14:59 22:59 Other: Weight 62.7 kg Thrombosis Risk Factor Assmnt - Choose All That Apply Each Factor Represents 1 point: Age 41-60 years Thrombosis Risk Factor Assessment Total Risk Factor Score: 1 Thrombosis Risk Factor Assessment Level: Low Risk
[2020-07-12] MEDS: SODIUM CHLORIDE 0.9% 1,000 ML IV SCH (18:56)
[2020-07-12] MEDS: ACETAMINOPHEN TAB 325 MG TAB PO PRN (18:56)
[2020-07-12] MEDS: PANTOPRAZOLE 40 MG TABLET PO SCH (21:15)
[2020-07-12] MEDS: SUCRALFATE 1 GM TAB PO SCH (21:15)
[2020-07-12] MEDS: QUEtiapine 400 MG TAB PO SCH (21:15)
[2020-07-12 21:23] LABS: Basophils % (A) 0 %; Eosinophils # (A) 0.1 k/uL (0-0.7); Eosinophils % (A) 2 %; HCT 40.1 % (34.0-46.0); HGB 13.7 gm/dL (11.4-16.0); Lymphocytes % (A) 21 %; MCH 32.3 pg (25.0-35.0); MCHC 34.1 g/dL (31.0-37.0); MCV 94.8 fL (80.0-100.0); Mean Platelet Volume 6.8; Monocytes # (A) 0.5 k/uL (0-1.0); Monocytes % (A) 9 %; Neutrophils # (A) 3.1 k/uL (1.3-7.7); Neutrophils % (A) 64 %; Platelet Count 342 k/uL (150-450); RBC 4.24 m/uL (3.80-5.40); RDW 14.2 % (11.5-15.5); WBC 4.9 k/uL (3.8-10.6)
[2020-07-12 21:32] LABS: African American GFR (CKD) >90 (>60 ml/min/1.73 sqM); Anion Gap 8 mmol/L; Blood Urea Nitrogen 4 mg/dL (7-17); Calcium 8.9 mg/dL (8.4-10.2); Carbon Dioxide 24 mmol/L (22-30); Chloride 89 mmol/L (98-107); Glucose 134 mg/dL (74-99); Magnesium 1.8 mg/dL (1.6-2.3); Non-African American GFR(CKD) >90 (>60 ml/min/1.73 sqM); Phosphorus 2.6 mg/dL (2.5-4.5); Potassium 3.7 mmol/L (3.5-5.1); Sodium 121 mmol/L (137-145)
[2020-07-13] MEDS: ACETAMINOPHEN TAB 325 MG TAB PO PRN (01:47)
[2020-07-13] MEDS ORDERED: traMADol 50 MG TAB PO STA (03:19)
[2020-07-13] MEDS ORDERED: ARTIFICIAL TEARS-HYPROMELLOSE DROPS 15 ML BTL BOTH EYES PRN (05:25)
[2020-07-13] MEDS: SODIUM CHLORIDE 0.9% 1,000 ML IV SCH (05:26)
[2020-07-13 05:34] LABS: African American GFR (CKD) >90 (>60 ml/min/1.73 sqM); Anion Gap 2 mmol/L; Blood Urea Nitrogen 2 mg/dL (7-17); Calcium 8.4 mg/dL (8.4-10.2); Carbon Dioxide 25 mmol/L (22-30); Chloride 95 mmol/L (98-107); Glucose 106 mg/dL (74-99); Non-African American GFR(CKD) >90 (>60 ml/min/1.73 sqM); Potassium 3.7 mmol/L (3.5-5.1); Sodium 122 mmol/L (137-145)
[2020-07-13] MEDS: PANTOPRAZOLE 40 MG TABLET PO SCH ×2 (07:49→17:36)
[2020-07-13] MEDS: SUCRALFATE 1 GM TAB PO SCH ×3 (07:49→17:36)
[2020-07-13] MEDS: ENOXAPARIN 40 MG/0.4 ML SYRINGE SQ SCH (07:49)
[2020-07-13] MEDS: lamoTRIgine 100 MG TAB PO SCH (07:49)
[2020-07-13 09:48] LABS: African American GFR (CKD) >90 (>60 ml/min/1.73 sqM); Anion Gap 10 mmol/L; Blood Urea Nitrogen <2 mg/dL (7-17); Carbon Dioxide 22 mmol/L (22-30); Chloride 101 mmol/L (98-107); Glucose 123 mg/dL (74-99); Non-African American GFR(CKD) >90 (>60 ml/min/1.73 sqM); Potassium 4.4 mmol/L (3.5-5.1); Sodium 133 mmol/L (137-145)
--- NOTE | 2020-07-13 12:15 | P.NPCON ---
History of Present Illness - Reason for Consult hyponatremia - History of Present Illness Reason for consultation: Hyponatremia History of present illness: The patient is a 60-year-old female seen in renal consultation for hyponatremia. Patient's sodium level on admission was 121 and then earlier this morning is 122. I repeated it again at 9 AM and was up to 133. Patient presented to the hospital with nausea vomiting and diarrhea going on for the past 1 month or so. Patient's his oral intake has been quite poor due to the vomiting. She does admit to drinking quite a bit of water throughout the day. Denies taking any thiazide diuretics. No personal history of malignancy. Denies use of nonsteroidals. No history of focal abuse. No chest pain or shortness of breath. No edema. No fever or chills. No cough. Vital signs are stable. General: The patient appeared well nourished and normally developed. HEENT: Head exam is unremarkable. Neck is without jugular venous distension. LUNGS: Breath sounds decreased. HEART: Rate and Rhythm are regular. ABDOMEN: Soft, nontender. EXTREMITITES: No edema. Past Medical History Past Medical History: GERD/Reflux Additional Past Medical History / Comment(s): CHANGE IN BOWEL MOVEMENTS., HAVING PAIN IN STOMACH ,REFLUX WITH NAUSEA AND VOMITING. History of Any Multi-Drug Resistant Organisms: None Reported Past Surgical History: Appendectomy, Bowel Resection, Breast Surgery, Section, Cholecystectomy, Hernia Repair, Tubal Ligation Additional Past Surgical History / Comment(s): HERNIATED BOWEL REQUIRED BOWEL RESECTION., BREAST IMPLANTS, Pt. states "L breast imploded and the R implant needs to be removed. Past Anesthesia/Blood Transfusion Reactions: No Reported Reaction Additional Past Anesthesia/Blood Transfusion Reaction / Comment(s): HX OF BLOOD TRANSFUSION-NO REACTION Past Psychological History: Anxiety, Bipolar, Depression Additional Psychological History / Comment(s): NO PRIOR COMPLICATIONS WITH BLOOD TRANSFUSION Smoking Status: Former smoker Past Alcohol Use History: None Reported Additional Past Alcohol Use History / Comment(s): STARTED SMOKING AT AGE 18 QUIT 06/01. SMOKES 1/2-1 PPD. Past Drug Use History: None Reported - Past Family History Mother Family Medical History: No Reported History Father Additional Family Medical History / Comment(s): COMMITTED SUICIDE AT AGE 28 Medications and Allergies Home Medications Medication Instructions Recorded Confirmed Type OXcarbazepine [Trileptal] 300 mg PO BID 12/07/19 07/12/20 History QUEtiapine FUMARATE [SEROquel] 400 mg PO HS 12/07/19 07/12/20 History lamoTRIgine [LaMICtal] 200 mg PO DAILY 12/07/19 07/12/20 History ALPRAZolam [Xanax] 1 mg PO BID PRN 07/06/20 07/12/20 History Naproxen 500 mg PO BID PRN 07/06/20 07/12/20 History Omeprazole 20 mg PO BID 07/06/20 07/12/20 History Ondansetron Odt [Zofran Odt] 4 mg PO Q6H PRN 07/06/20 07/12/20 History Sucralfate [Carafate] 1 gm PO TID 07/06/20 07/12/20 History Amoxic-Pot Clav 875-125Mg 1 tab PO BID 07/12/20 07/12/20 History [Augmentin 875-125] Allergies Allergy/AdvReac Type Severity Reaction Status Date / Time No Known Allergies Allergy Verified 07/12/20 17:38 Physical Exam Vitals: Vital Signs Temp Pulse Resp BP Pulse Ox 07/13/20 07:43 97.6 F 84 18 97/63 98 07/13/20 03:20 98.4 F 86 15 100/62 93 L 07/12/20 19:46 98.2 F 64 16 145/79 98 07/12/20 17:15 98.5 F 92 20 150/53 98 Intake and Output 07/12/20 07/13/20 07/13/20 22:59 06:59 14:59 Other: # Voids 3 Weight 62.7 kg Results - Lab Results Most recent lab results Calcium 9.0 mg/dL (8.4-10.2) 07/13/20 09:05 Phosphorus 2.6 mg/dL (2.5-4.5) 07/12/20 21:02 Magnesium 1.8 mg/dL (1.6-2.3) 07/12/20 21:02 07/12/20 21:02 07/13/20 09:05 Assessment and Plan Plan: Assessment: 1. Hypovolemic hyponatremia with component of poor solute intake and excessive water intake. Sodium level corrected rapidly with normal saline. Urine osmolality low at 68. 2. Nausea vomiting diarrhea. C. diff being ruled out. Plan: Stop normal saline. Start D5W at 100 mL an hour to reverse the correction of hyponatremia. Check TSH. Encouraged oral intake. Repeat sodium level in 3 hours. Thank you for the consultation. I will continue to follow the patient with you during her hospital stay.
[2020-07-13] MEDS ORDERED: ZIPRASIDONE 20 MG VIAL IM PRN (12:39)
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
[2020-07-13] MEDS: DEXTROSE 5% IN WATER 1,000 ML IV SCH ×2 (14:03→22:46)
[2020-07-13] MEDS: traMADol 50 MG TAB PO PRN (16:12)
--- NOTE | 2020-07-13 16:59 | P.PN ---
Subjective Progress Note Date: 07/13/20 Principal diagnosis: nausea and vomiting Patient is a 60-year-old female with known GERD, intractable nausea and vomiting for the last 2 months, prior bowel obstruction who was hospitalized on the mental health unit secondary to schizoaffective disorder bipolar type. She began having intractable nausea and vomiting. They did see one episode of vomiting with 3 small amounts of bright red material. At that point in time a stat CBC and basic metabolic profile was ordered. CBC came back within normal limits for basic metabolic profile showed sodium of 121. She scratches to the medical floor. She received 1 L bolus of normal saline was started on normal saline at 125 an hour. Repeat sodium level done which was 122. Repeat sodium level in the morning of 07/13/20 was 133 and IV fluids were stopped. Nephrology was consulted. Pelvic hyponatremia was secondary to poor solute intake and excessive water intake. Patient seen and examined at bedside. Visibly upset and crying. Has been on the phone all morning with her sister and her bowling ball molder. Denies any chest pain. States her nausea and vomiting is resolved. Diarrhea is resolved. She reports that she was started on Augmentin and she had some pus come out of her left nipple and she is currently awaiting to have an implant removed from her left breast. General: non toxic, no distress, appears at stated age Derm: warm, dry Head: atraumatic, normocephalic, symmetric Eyes: EOMI, no lid lag, anicteric sclera Mouth: no lip lesion, mucus membranes moist Cardiovascular: S1S2 reg, no murmur, positive posterior tibial pulse bilateral, Lungs: CTA bilateral, no rhonchi, no rales , no accessory muscle use Abdominal: soft, nontender to palpation, no guarding, no appreciable organomegaly Ext: no gross muscle atrophy, no edema, no contractures Neuro: CN II-XI grossly intact, no focal neuro deficits Psych: Alert, anxious, pressured speech Intractable nausea and vomiting with diarrhea, improved -Resolved off Augmentin and likely secondary to combination of antibiotics in conjunction with severe anxiety -Patient has not had a bowel movement to provide C. diff testing -Zofran -Sided advanced to regular. Hyponatremia, suspect secondary to dehydration and poor solute intake -Nephrology recommendations appreciated -IV fluids discontinued due to rapid correction -Repeat sodium level stable -TSH was normal during her mental health stay. GERD -PPI, Carafate Schizoaffective disorder, bipolar type -panel lay up worker at bedside -Hold Trileptal -Continue with Seroquel, Lamictal -Psychiatry recommendations DVT prophylaxis: SCDs Anticipated discharge date: in AM Anticipated discharge place: Return to mental health unit Objective - Vital Signs Vital signs: Vital Signs Temp 98.4 F 07/13/20 14:40 Pulse 86 07/13/20 14:40 Resp 18 07/13/20 14:40 BP 125/79 07/13/20 14:40 Pulse Ox 95 07/13/20 14:40 Intake & Output 07/12/20 07/13/20 07/13/20 18:59 06:59 18:59 Weight 62.7 kg Other: # Voids 3 - Labs CBC & Chem 7: 07/12/20 21:02 07/13/20 15:13 Labs: Abnormal Lab Results - Last 24 Hours (Table) 07/12/20 07/13/20 07/13/20 Range/Units 21:02 04:31 09:05 Sodium 121 L 122 L 133 L (137-145) mmol/L Chloride 89 L 95 L (98-107) mmol/L BUN 4 L 2 L <2 L (7-17) mg/dL Glucose 134 H 106 H 123 H (74-99) mg/dL Osmolality 277 L (280-301) mosm/kg 07/13/20 Range/Units 15:13 Sodium 133 L (137-145) mmol/L Chloride (98-107) mmol/L BUN (7-17) mg/dL Glucose (74-99) mg/dL Osmolality (280-301) mosm/kg
[2020-07-13] MEDS ORDERED: DESMOPRESSIN ACETATE 4 MCG/ML VIAL (MDV) IV ONE (22:00)
[2020-07-13] MEDS ORDERED: DESMOPRESSIN ACETATE 4 MCG/ML VIAL (MDV) IVPB ONE (22:00)
[2020-07-13] MEDS: QUEtiapine 400 MG TAB PO SCH (22:07)
[2020-07-13] MEDS: ALPRAZolam 1 MG TAB PO PRN (22:07)
[2020-07-14] MEDS: traMADol 50 MG TAB PO PRN (05:54)
[2020-07-14 06:18] LABS: African American GFR (CKD) >90 (>60 ml/min/1.73 sqM); Anion Gap 6 mmol/L; Blood Urea Nitrogen 4 mg/dL (7-17); Calcium 8.8 mg/dL (8.4-10.2); Carbon Dioxide 23 mmol/L (22-30); Chloride 100 mmol/L (98-107); Glucose 97 mg/dL (74-99); Magnesium 1.6 mg/dL (1.6-2.3); Non-African American GFR(CKD) >90 (>60 ml/min/1.73 sqM); Potassium 3.4 mmol/L (3.5-5.1); Sodium 129 mmol/L (137-145)
[2020-07-14] MEDS ORDERED: POTASSIUM CHLORIDE 20 MEQ in WATER FOR INJECTION 1 100ML.BAG IVPB STA ×2 (08:01→18:01)
[2020-07-14] MEDS ORDERED: POTASSIUM CHLORIDE 20 MEQ in SODIUM CHLORIDE 0.9% 100 ML IVPB STA (08:15)
[2020-07-14] MEDS: ALPRAZolam 1 MG TAB PO PRN ×2 (08:28→20:27)
[2020-07-14] MEDS: ENOXAPARIN 40 MG/0.4 ML SYRINGE SQ SCH (08:28)
[2020-07-14] MEDS: lamoTRIgine 100 MG TAB PO SCH (08:28)
[2020-07-14] MEDS: SUCRALFATE 1 GM TAB PO SCH ×3 (08:28→18:07)
[2020-07-14] MEDS: PANTOPRAZOLE 40 MG TABLET PO SCH ×2 (08:28→18:07)
[2020-07-14] MEDS ORDERED: POTASSIUM CHLORIDE ER 20 MEQ TAB.ER PO STA (09:57)
--- NOTE | 2020-07-14 11:19 | P.PN ---
Subjective Patient is seen in follow-up for hyponatremia. Patient's sodium level had corrected rapidly and was given D5W as well as DDAVP yesterday. Sodium level this morning was 129. Oral intake is gradually improving. She is currently off IV fluids. No chest pain or shortness of breath. No vomiting or diarrhea. Vital signs are stable. General: The patient appeared well nourished and normally developed. HEENT: Head exam is unremarkable. Neck is without jugular venous distension. LUNGS: Breath sounds decreased. HEART: Rate and Rhythm are regular. ABDOMEN: Soft, nontender. EXTREMITITES: No edema. Objective - Vital Signs Vital signs: Vital Signs Temp 98.3 F 07/14/20 08:04 Pulse 85 07/14/20 08:04 Resp 17 07/14/20 08:04 BP 121/80 07/14/20 08:04 Pulse Ox 99 07/14/20 08:04 Intake & Output 07/13/20 07/14/20 07/14/20 18:59 06:59 18:59 Other: Voiding Method Toilet Toilet # Voids 2 1 1 - Labs CBC & Chem 7: 07/12/20 21:02 07/14/20 05:31 Labs: Abnormal Lab Results - Last 24 Hours (Table) 07/13/20 07/13/20 07/14/20 Range/Units 15:13 20:34 00:39 Sodium 133 L 135 L 131 L (137-145) mmol/L Potassium (3.5-5.1) mmol/L BUN (7-17) mg/dL 07/14/20 Range/Units 05:31 Sodium 129 L (137-145) mmol/L Potassium 3.4 L (3.5-5.1) mmol/L BUN 4 L (7-17) mg/dL Assessment and Plan Plan: Assessment: 1. Hypovolemic hyponatremia with component of poor solute intake and excessive water intake. Sodium level corrected rapidly with normal saline. Urine osmolality low at 68 and urine sodium 12. TSH normal. 2. Nausea vomiting diarrhea. Mostly resolved. 3. Hypokalemia from poor intake. Plan: Remains off IV fluids. Potassium being replaced. Add oral magox. Encouraged oral intake, particularly protein. Repeat electrolytes in the morning.
--- NOTE | 2020-07-14 13:37 | P.PN ---
Progress Note - Text Progress Note Date: 07/14/20 INTERVAL HISTORY: Patient was seen eating her lunch and was directable and agreeable to speak with the production underwriter. She continues to express significant paranoia. The patient reports that his be Cornelius should be locked up and not her. She is expressing that this is not a delusion. She also vehemently denies that she has been having any auditory hallucinations or mormonism preoccupation. The patient goes into significant detail her to staying with her treatment while in this hospital. She expresses that she was unable to find any nurse or doctor earlier this morning. Currently, she is not endorsing any suicidal or homicidal ideation, intention, and/or plan. She is not reporting any auditory or visual hallucinations currently. She continues to be fixated on the court process. She has been adherent with her medications and is not reporting any significant side effects at this time. MENTAL STATUS EXAM: General Appearance: Patient appears to be stated age is alert, pleasant, and cooperative. Patient appears to have fair hygiene and grooming wearing a hospital gown with fair eye contact. Patient is wearing a rosary and other mormonism eye contact and psychosis around her neck. Behavior: Psychomotor activity is elevated. Patient is unable to sit still. She sits up and down out of her chair. Speech: Patient's speech is pressured, circumstantial, repetitive, otherwise normal fluency. Mood/Affect: Patient reports their mood is "resigned to whatever you want", affect is congruent, labile, obstinate, irritable. Suicidality/Homicidality: Patient denies having any suicidal or homicidal ideation intent or plan. Perceptions: Patient denies any visual hallucinations and denies any auditory hallucinations Though content/process: Delusional thought content is endorsed. Memory and concentration: AOX3, grossly intact for the purposes of this session. Can spell "WORLD" backwards Judgment and insight: Very Poor ASSESSMENT: Schizoaffective disorder, bipolar type Nicotine dependence Hyponatremia Hypokalemia PLAN: -At this time patient DOES meet criteria for inpatient psychiatric admission. -Delirium precautions recommended with patient including - avoiding use of narcotics and CUSHION GUM APPLICATOR sedatives, limit anticholinergic medications when possible, frequent re-orientation, minimize use of restraints, open window shades during the day and close them at night -Would recommend the following medication changes/additions: Continue Seroquel 400 mg at bedtime. Continue Geodon 20 mg twice daily as needed for agitation We will restart Prolixin 1 mg by mouth twice a day for mood stabilization/psychosis. -Continue 1:1 sitter for safety -Cannot leave AMA at this time. Patient has been scheduled for mental health court on 07/26/2020. -Will continue to follow along -When medically stable, patient is eligible for transfer to a psych bed when available.
[2020-07-14] MEDS: MAGNESIUM OXIDE 400 MG TAB PO SCH (14:24)
--- NOTE | 2020-07-14 16:15 | P.PN ---
Subjective Progress Note Date: 07/14/20 Principal diagnosis: nausea and vomiting Patient is a 60-year-old female with known GERD, intractable nausea and vomiting for the last 2 months, prior bowel obstruction who was hospitalized on the mental health unit secondary to schizoaffective disorder bipolar type. She began having intractable nausea and vomiting. They did see one episode of vomiting with 3 small amounts of bright red material. At that point in time a stat CBC and basic metabolic profile was ordered. CBC came back within normal limits for basic metabolic profile showed sodium of 121. She scratches to the medical floor. She received 1 L bolus of normal saline was started on normal saline at 125 an hour. Repeat sodium level done which was 122. Repeat sodium level in the morning of 07/13/20 was 133 and IV fluids were stopped. Nephrology was consulted, they started d5 and sodium levels started to stabalize. Hyponatremia was secondary to poor solute intake and excessive water intake. Patient seen and examined at bedside. Doing better today. Denies any chest pain, shortness breath, nausea and vomiting. Requesting potassium to be intravenous fluid replacement. General: non toxic, no distress, appears at stated age Derm: warm, dry Head: atraumatic, normocephalic, symmetric Eyes: EOMI, no lid lag, anicteric sclera Mouth: no lip lesion, mucus membranes moist Cardiovascular: S1S2 reg, no murmur, positive posterior tibial pulse bilateral, Lungs: CTA bilateral, no rhonchi, no rales , no accessory muscle use Abdominal: soft, nontender to palpation, no guarding, no appreciable organomegaly Ext: no gross muscle atrophy, no edema, no contractures Neuro: CN II-XI grossly intact, no focal neuro deficits Psych: Alert, oriented, appropriate affect Hyponatremia, suspect secondary to dehydration and poor solute intake -Nephrology recommendations appreciated -D5 stopped on the morning of 07/14 and repeat in afternoon and AM -TSH was normal during her mental health stay. GERD -PPI, Carafate Schizoaffective disorder, bipolar type -planting machine crewman at bedside -Continue with Seroquel, Lamictal -Psychiatry recommendations Intractable nausea and vomiting with diarrhea, resolved -Resolved off Augmentin and likely secondary to combination of antibiotics in conjunction with severe anxiety DVT prophylaxis: SCDs Anticipated discharge date: in AM Anticipated discharge place: Return to mental health unit Objective - Vital Signs Vital signs: Vital Signs Temp 98.1 F 07/14/20 14:00 Pulse 102 H 07/14/20 14:00 Resp 19 07/14/20 14:00 BP 108/68 07/14/20 14:00 Pulse Ox 97 07/14/20 14:00 Intake & Output 07/13/20 07/14/20 07/14/20 18:59 06:59 18:59 Other: Voiding Method Toilet Toilet # Voids 2 1 1 - Labs CBC & Chem 7: 07/12/20 21:02 07/14/20 05:31 Labs: Abnormal Lab Results - Last 24 Hours (Table) 07/13/20 07/14/20 07/14/20 Range/Units 20:34 00:39 05:31 Sodium 135 L 131 L 129 L (137-145) mmol/L Potassium 3.4 L (3.5-5.1) mmol/L BUN 4 L (7-17) mg/dL
[2020-07-14 18:57] LABS: African American GFR (CKD) >90 (>60 ml/min/1.73 sqM); Anion Gap 8 mmol/L; Blood Urea Nitrogen 6 mg/dL (7-17); Calcium 9.9 mg/dL (8.4-10.2); Carbon Dioxide 26 mmol/L (22-30); Chloride 94 mmol/L (98-107); Glucose 101 mg/dL (74-99); Non-African American GFR(CKD) >90 (>60 ml/min/1.73 sqM); Potassium 4.1 mmol/L (3.5-5.1); Sodium 128 mmol/L (137-145)
[2020-07-14] MEDS: DEXTROSE 5% IN WATER 1,000 ML IV SCH (19:17)
[2020-07-14] MEDS: QUEtiapine 400 MG TAB PO SCH (20:27)
[2020-07-15 07:56] LABS: African American GFR (CKD) >90 (>60 ml/min/1.73 sqM); Anion Gap 10 mmol/L; Blood Urea Nitrogen 5 mg/dL (7-17); Calcium 9.7 mg/dL (8.4-10.2); Carbon Dioxide 22 mmol/L (22-30); Chloride 101 mmol/L (98-107); Glucose 93 mg/dL (74-99); Non-African American GFR(CKD) >90 (>60 ml/min/1.73 sqM); Potassium 4.3 mmol/L (3.5-5.1); Sodium 133 mmol/L (137-145)
[2020-07-15] MEDS: ENOXAPARIN 40 MG/0.4 ML SYRINGE SQ SCH (09:05)
[2020-07-15] MEDS: MAGNESIUM OXIDE 400 MG TAB PO SCH (09:06)
[2020-07-15] MEDS: PANTOPRAZOLE 40 MG TABLET PO SCH ×2 (09:06→17:18)
[2020-07-15] MEDS: ALPRAZolam 1 MG TAB PO PRN (09:06)
[2020-07-15] MEDS: SUCRALFATE 1 GM TAB PO SCH ×3 (09:06→17:18)
[2020-07-15] MEDS: lamoTRIgine 100 MG TAB PO SCH (09:06)
--- NOTE | 2020-07-15 10:42 | P.DS ---
Providers Date of admission: 07/12/20 18:01 Expected date of discharge: 07/15/20 Attending physician: Brenda Davalos DO Consults: 07/12/20 18:02 Consult Physician Routine Consulting Provider: Mart Schumacher Consult Reason/Comments: hyponatremia Do you want consulting provider notified?: Yes Consult Physician Routine Consulting Provider: Govind De Guzman Consult Reason/Comments: anxiety Do you want consulting provider notified?: Yes Primary care physician: Stated None Hospital Course: Discharge Diagnosis: Hyponatremia secondary to dehydration and poor solute intake GERD Schizoaffective disorder bipolar type Intractable nausea and vomiting IBS with diarrhea Hospital Course: Patient is a 60-year-old female with known GERD, intractable nausea and vomiting for the last 2 months, prior bowel obstruction who was hospitalized on the mental health unit secondary to schizoaffective disorder bipolar type. She began having intractable nausea and vomiting. They did see one episode of vomiting with 3 small amounts of bright red material. At that point in time a stat CBC and basic metabolic profile was ordered. CBC came back within normal limits for basic metabolic profile showed sodium of 121. She scratches to the medical floor. She received 1 L bolus of normal saline was started on normal s deanne at 125 an hour. Repeat sodium level done which was 122. Repeat sodium level in the morning of 07/13/20 was 133 and IV fluids were stopped. Nephrology was consulted, they started d5 and sodium levels started to stabalize. Hyponatremia was secondary to poor solute intake and excessive water intake. Her sodium level remains stable without necessitating IV fluids for over 24 hours. She was cleared by nephrology. She was discharged to return to mental health unit. Repeat BMP in 2 days. Patient seen and examined at bedside. Reports that she is feeling well. No more nausea or vomiting. Tolerating her diet. Reports intermittent diarrhea, nursing has been unable to collect C. diff sample. Vital signs reviewed and stable. General: non toxic, no distress, appears at stated age Derm: warm, dry Head: atraumatic, normocephalic, symmetric Eyes: EOMI, no lid lag, anicteric sclera Mouth: no lip lesion, mucus membranes moist Cardiovascular: S1S2 reg, no murmur, positive posterior tibial pulse bilateral, Lungs: CTA bilateral, no rhonchi, no rales , no accessory muscle use Abdominal: soft, nontender to palpation, no guarding, no appreciable organomegaly Ext: no gross muscle atrophy, no edema, no contractures Neuro: CN II-XI grossly intact, no focal neuro deficits Psych: Alert, agitated, flight of ideas A total of 35 minutes of time were spent preparing this complex discharge summary . Plan - Discharge Summary Discharge Rx Participant: No New Discharge Prescriptions: New Potassium Chloride ER [K-Dur 10] 10 meq PO DAILY #30 tab Magnesium Oxide [Mag-Ox] 400 mg PO DAILY tab fluPHENAZine [Prolixin] 1 mg PO BID tab traMADol HCl [Ultram] 25 mg PO TID PRN tab PRN Reason: Pain Continue lamoTRIgine [LaMICtal] 200 mg PO DAILY QUEtiapine FUMARATE [SEROquel] 400 mg PO HS Sucralfate [Carafate] 1 gm PO TID Ondansetron Odt [Zofran ODT] 4 mg PO Q6H PRN PRN Reason: Nausea Omeprazole 20 mg PO BID ALPRAZolam [Xanax] 1 mg PO BID PRN PRN Reason: Anxiety Discontinued OXcarbazepine [Trileptal] 300 mg PO BID Naproxen 500 mg PO BID PRN PRN Reason: Pain Amoxic-Pot Clav 875-125Mg [Augmentin 875-125] 1 tab PO BID Discharge Medication List QUEtiapine FUMARATE [SEROquel] 400 mg PO HS 12/07/19 [History] lamoTRIgine [LaMICtal] 200 mg PO DAILY 12/07/19 [History] ALPRAZolam [Xanax] 1 mg PO BID PRN 07/06/20 [History] Omeprazole 20 mg PO BID 07/06/20 [History] Ondansetron Odt [Zofran ODT] 4 mg PO Q6H PRN 07/06/20 [History] Sucralfate [Carafate] 1 gm PO TID 07/06/20 [History] Magnesium Oxide [Mag-Ox] 400 mg PO DAILY tab 07/15/20 [Rx] Potassium Chloride ER [K-Dur 10] 10 meq PO DAILY #30 tab 07/15/20 [Rx] fluPHENAZine [Prolixin] 1 mg PO BID tab 07/15/20 [Rx] traMADol HCl [Ultram] 25 mg PO TID PRN tab 07/15/20 [Rx] Activity/Diet/Wound Care/Special Instructions: Activity: as tolerated Diet: regular Special Instructions: repeat BMP on 07/17/20 please Discharge Disposition: TRANSFER TO PSYCH HOSP/UNIT
[2020-07-15] MEDS ORDERED: LOPERAMIDE 2 MG CAP PO STA (12:26)
[2020-07-15 21:27] VITALS: BP 123/78; PULSE 79; RESP 16; TEMP 98.1
[2020-07-15] MEDS: QUEtiapine 400 MG TAB PO SCH (21:30)
== END 2020-07-15 22:45 | DRG 641 ==
LOC: PREINTOOBSV 17:23 → 4SSUR 17:58 → OBSVTOIN 18:01
PROVIDERS: ADMIT Internal Medicine; ATTEND Internal Medicine
DX: E87.1 Hypo-osmolality and hyponatremia (principal); F25.0 Schizoaffective disorder, bipolar type; K21.9 Gastro-esophageal reflux disease without esophagitis; F41.9 Anxiety disorder, unspecified; R11.2 Nausea with vomiting, unspecified; E86.0 Dehydration; E86.1 Hypovolemia; E87.6 Hypokalemia; K58.0 Irritable bowel syndrome with diarrhea; Z79.899 Other long term (current) drug therapy; Z90.49 Acquired absence of other specified parts of digestive tract; Z98.82 Breast implant status; Z98.890 Other specified postprocedural states; Z87.891 Personal history of nicotine dependence
CPT/HCPCS: 80048; 83735; 83930; 83935; 84100; 84295; 84300; 84443; 85025

== ENCOUNTER 2020-07-15 22:51 | Inpatient (IN) | payer MEDICAID ==
[2020-07-15] MEDS ORDERED: MAGNESIUM HYDROXIDE 2,400 MG/10 ML CUP PO PRN (23:21)
[2020-07-15] MEDS ORDERED: HALOPERIDOL LACTATE 5 MG/ML 1 ML VIAL IM PRN (23:31)
[2020-07-15] MEDS ORDERED: haloperidoL 5 MG TAB PO PRN (23:32)
[2020-07-16 05:02] LABS: Cholesterol 150 mg/dL (<200); HDL Cholesterol 55 mg/dL (40-60); LDL Cholesterol,Calculated 45 mg/dL (0-99); Triglycerides 249 mg/dL (<150)
[2020-07-16] MEDS: SUCRALFATE 1 GM TAB PO SCH ×3 (09:10→21:23)
[2020-07-16] MEDS: MAGNESIUM OXIDE 400 MG TAB PO SCH (09:10)
[2020-07-16] MEDS: POTASSIUM CHLORIDE ER 10 MEQ TAB.ER.PRT PO SCH (09:10)
[2020-07-16] MEDS: lamoTRIgine 100 MG TAB PO SCH (09:10)
--- NOTE | 2020-07-16 11:31 | P.HP ---
Psychiatric H&P - . H&P Date: 07/16/20 History & Physical: IDENTIFYING DATA: She is a 60-year-old female who has a chronic and persistent mental illness. We transferred her to medicine service on 07/12/2020 for evaluation of intractable nausea and vomiting. The snag grinder transferred her back to the psychiatric unit on 07/15/2020 with the diagnoses of hyponatremia secondary to dehydration and poor solute intake, GERD, intractable nausea and vomiting and IBS with diarrhea. HISTORY OF PRESENT ILLNESS: I reviewed the medical record and attempted to interview the patient. She was unable to provide a coherent psychiatric history. This was an unusual in evaluation and that she brought with her a minimal folder stuffed with paper. She made reference to the paper throughout the interview scattering the paper on the floor until much of the interview room floor was littered with the paper from her folder. Her speech was disorganized, tangential and perseverative. 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 PAST PSYCHIATRIC HISTORY: She has a history of a bipolar illness and treated through [facility]. She is had 2 prior psychiatric hospitalizations. She was admitted to the psychiatric unit involuntarily on 07/05/2020. Her therapist that [facility] completed the petition where the patient allegedly stated that God told her that she doesn't need to take her mental health medications. Her concerns of her behavior in the community. She's been contact the police department requesting preferences so that she may work with the police again. She reportedly threatened legal actions towards the police department if they would not provide her with the preferences. PAST MEDICAL HISTORY: She has history of GERD, herniated bowel requiring bowel resection and recently dehydration ALLERGIES: NO KNOWN DRUG ALLERGIES SUBSTANCE USE HISTORY: She denied a history of alcohol or drug use problems. She smokes cigarettes. FAMILY PSYCHIATRIC/SUBSTANCE USE HISTORY: Her father reportedly had history of alcohol use problem and by suicide. Her sister has an unspecified mental health problem. LEGAL HISTORY: She denied history of legal problems. SOCIAL HISTORY: She was born in [facility] and raised in [place], [place]. She currently lives alone with her cat in [place]. The patient was previously employed with the [place] [employer] until 2006 after a mental health breakdown. The patient is currently receiving SSI. She is the oldest of Chris arreola. The patient states that she was 3 times, twice to the same man. She reported that she is estranged from her 4 children. She has been since 2006. She was recently seeing a man named Cornelius until this past May. She reports that she was born and raised Sikh. MENTAL STATUS EXAM: She presented as a short casually groomed 60-year-old female who was pleasant on approach. She made eye contact and appeared to attend to the interview. She had no distinguishing features or prominent physical abnormalities. She has a labile facial expression. She was alert and oriented to person, place and time. She was restless and impulsive. Her speech was spontaneous rapid and digressive. Her affect was markedly labile and she sobbed intermittently during the interview. She was able to quickly recover and proceed with a disorganized conversation. She did not express suicidal ideation or wishes. She denied homicidal ideation. She expressed feelings of helplessness with regard to her current hospitalization. She ruminated about her legal issues in her past employment particularly her appointment with the police department. She expressed vague paranoid ideation regarding her ex-boyfriend, community mental health in the police department. She did not express any clear organized delusional belief during her interview. Her thinking was concrete and disorganized and at times incoherent. She denied hallucinations did not appear to responding to internal stimuli. Global impression of thought is average to above. She has limited awareness or understanding of her illness and need for treatment. STRENGTHS: HIS good physical health, engagement with mental health services, stable income, stable housing WEAKNESSES: Chronic and persistent mental illness, limited insight or understanding of her need for treatment IMPRESSION: She is a 60-year-old female who has a chronic and persistent mental illness diagnosis of bipolar disorder. She presented to the psychiatric unit involuntarily. During hospitalization she developed intractable vomiting and was transferred from medicine for evaluation of possible bowel obstruction. She was discharged with a diagnosis of dehydration Intractable vomiting. She remains disorganized, labile and paranoid. She has limited insight or understanding of her need for treatment. She'll benefit from continue inpatient treatment with combination of psychopharmacology and multimodal therapy. PRINCIPLE DIAGNOSIS: Bipolar disorder most recent episode manic with psychotic features, rule out schizoaffective disorder bipolar type RECOMMENDATION: Admitted to the psychiatric unit. Sick precautions. Probate hearing pending. Patient medical problems as recommended by the medical tech. cut and cover line worker to coordinate discharge and aftercare services. Continue Prolixin 1 mg by mouth twice a day, Lamictal 200 mg daily, and Seroquel 400 mg at bedtime for treatment of her bipolar illness. Prolixin 5 mg by mouth/IM as well as Ativan 1 mg when necessary IM when necessary for agitation and aggression acute psychosis. Continue magnesium oxide 400 mg daily, Zofran ODT 4 mg every 6 hours when necessary for nausea, potassium chloride 10 mEq by mouth daily, Carafate 1 mg 3 times a day and Ultram 25 mg by mouth 3 times a day when necessary for pain. Encourage participation to prescription and activities. Evaluate clinical status response to treatment daily basis. Allergies Allergy/AdvReac Type Severity Reaction Status Date / Time No Known Allergies Allergy Verified 07/16/20 02:59 Vital Signs Temp 97.2 F L 07/16/20 00:00 Pulse 111 H 07/16/20 00:00 Resp 16 07/16/20 00:00 BP 116/67 07/16/20 00:00 Pulse Ox 98 07/16/20 00:00 Intake & Output 07/15/20 07/16/20 07/16/20 18:59 06:59 18:59 Weight 64.8 kg 64.1 kg Laboratory Last Values Triglycerides 249 mg/dL (<150) H 07/15/20 06:52 Cholesterol 150 mg/dL (<200) 07/15/20 06:52 LDL Cholesterol, Calc 45 mg/dL (0-99) 07/15/20 06:52 HDL Cholesterol 55 mg/dL (40-60) 07/15/20 06:52 07/16/20 11:13
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
[2020-07-16] MEDS: ACETAMINOPHEN TAB 325 MG TAB PO PRN (16:32)
[2020-07-16] MEDS: MAG HYDROX/AL HYDROX/SIMETH 30 ML CUP PO PRN (16:33)
[2020-07-16] MEDS: ONDANSETRON ODT 4 MG TAB PO PRN (17:33)
[2020-07-16] MEDS: QUEtiapine 400 MG TAB PO SCH (21:23)
[2020-07-16] MEDS: LORazepam 1 MG TAB PO PRN (22:00)
[2020-07-17 08:05] LABS: African American GFR (CKD) >90 (>60 ml/min/1.73 sqM); Anion Gap 9 mmol/L; Blood Urea Nitrogen 7 mg/dL (7-17); Calcium 10.2 mg/dL (8.4-10.2); Carbon Dioxide 28 mmol/L (22-30); Chloride 100 mmol/L (98-107); Glucose 115 mg/dL (74-99); Non-African American GFR(CKD) 85 (>60 ml/min/1.73 sqM); Potassium 4.9 mmol/L (3.5-5.1); Sodium 137 mmol/L (137-145)
[2020-07-17] MEDS: lamoTRIgine 100 MG TAB PO SCH (08:47)
[2020-07-17] MEDS: POTASSIUM CHLORIDE ER 10 MEQ TAB.ER.PRT PO SCH (08:48)
[2020-07-17] MEDS: MAGNESIUM OXIDE 400 MG TAB PO SCH (08:48)
[2020-07-17] MEDS: SUCRALFATE 1 GM TAB PO SCH ×3 (08:48→22:04)
--- NOTE | 2020-07-17 10:15 | P.PN ---
Progress Note - Text Progress Note Date: 07/17/20 Interval History: Patient was seen wandering the hallways and was agreeable to speak with the marketing underwriter in the office. The patient continues to report that she is very upset and is requesting discharge. The patient is now stating that she signed herself in voluntarily after coming from the medical floor to this unit again. The patient is demanding that she is discharged. She was again informed that she will not be discharged as she is not cleared psychiatrically and that she will appear in court for court ordered mental health treatment. She is currently not reporting any suicidal or homicidal ideation, intention, and/or plan. She is denying any auditory or visualizations. She continues to endorse significant paranoia towards Cornelius and also reports concern that everyone is acting against her and stopping her from achieving her career goals. The patient is particular upset with her therapist to petitioned her stating that everything that was written were all lies. The patient vehemently denies that she has gnosticism preoccupation but does continue to endorse that he was God that told her to hide from Cornelius. The patient is currently stating that she will nate everyone involved. Mental Status Exam: General Appearance: Patient appears to be stated age is alert, directable, and intermittently cooperative. The patient is dressed in her home clothes and is wearing multiple necklaces including a rosary. Behavior: Patient is lying in bed without any agitated behavior. Psychomotor activity is elevated. Eye contact is intermittent but intense. Speech: Patient's speech is fluent and nonpressured. Spontaneous. Loud at times. Mood/Affect: Mood is "very upset." Affect is labile - tearful to malaised. Suicidality/Homicidality: Patient denies any suicidal or homicidal ideation, intention, and/or plan. Perceptions: Patient denies any auditory or visual hallucinations. Though content/process: Paranoid thought content is evident. Anabaptism delusional thoughts are endorsed. Memory and concentration: AOX3, grossly intact for the purposes of this session Judgment and insight: Very poor Assessment Schizoaffective disorder, bipolar type Nicotine dependence Plan: -Patient continues to meet criteria for inpatient psychiatric admission for symptom stabilization and safety. The patient has been petitioned and certified. A demand for mental health court hearing was filed. -Recommend Medical team notified of hypokalemia. -Medications: Continue Lamictal 200 mg by mouth daily Increase Prolixin to 2 mg by mouth twice a day Continue Seroquel 400 mg by mouth at bedtime -When necessary Haldol for agitation/aggression. -NRT - nicotine patch -SW on board for discharge planning. Encouraged the patient to participate in milieu.
[2020-07-17] MEDS: ONDANSETRON ODT 4 MG TAB PO PRN (13:44)
[2020-07-17] MEDS: QUEtiapine 400 MG TAB PO SCH (22:03)
[2020-07-18] MEDS: LORazepam 2 MG/ML INJ IM PRN ×3 (07:14→19:56)
[2020-07-18] MEDS: SUCRALFATE 1 GM TAB PO SCH ×3 (07:51→20:36)
[2020-07-18] MEDS: POTASSIUM CHLORIDE ER 10 MEQ TAB.ER.PRT PO SCH (07:51)
[2020-07-18] MEDS: MAGNESIUM OXIDE 400 MG TAB PO SCH (07:51)
[2020-07-18] MEDS: lamoTRIgine 100 MG TAB PO SCH (07:51)
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
[2020-07-18] MEDS: flUPHENAZine 2.5 MG/ML (MDV) 10 ML VIAL IM PRN ×2 (12:35→19:57)
[2020-07-18] MEDS: QUEtiapine 400 MG TAB PO SCH (20:36)
[2020-07-19] MEDS: MAGNESIUM OXIDE 400 MG TAB PO SCH (09:08)
[2020-07-19] MEDS: lamoTRIgine 100 MG TAB PO SCH (09:08)
[2020-07-19] MEDS: POTASSIUM CHLORIDE ER 10 MEQ TAB.ER.PRT PO SCH (09:08)
[2020-07-19] MEDS: SUCRALFATE 1 GM TAB PO SCH ×3 (09:08→21:04)
[2020-07-19] MEDS: LORazepam 1 MG TAB PO PRN (09:09)
[2020-07-19] MEDS: ACETAMINOPHEN TAB 325 MG TAB PO PRN (09:09)
[2020-07-19] MEDS: ONDANSETRON ODT 4 MG TAB PO PRN (10:42)
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
[2020-07-19] MEDS: traMADol 50 MG TAB PO PRN (21:02)
[2020-07-19] MEDS: QUEtiapine 200 MG TAB PO SCH (21:09)
[2020-07-20] MEDS: MAGNESIUM OXIDE 400 MG TAB PO SCH (07:55)
[2020-07-20] MEDS: SUCRALFATE 1 GM TAB PO SCH ×3 (07:55→21:54)
[2020-07-20] MEDS: lamoTRIgine 100 MG TAB PO SCH (07:56)
[2020-07-20] MEDS: POTASSIUM CHLORIDE ER 10 MEQ TAB.ER.PRT PO SCH (07:56)
--- NOTE | 2020-07-20 12:50 | P.PN ---
Progress Note - Text Progress Note Date: 07/20/20 Interval History: Patient was seen wandering the hallways and was agreeable to speak with the assembly instructions writer in the office. Patient states that she is feeling better today. She reports her physical health has improved since yesterday. She continues to be somewhat somatic endorsing some nausea and upset stomach but states that she has not been vomiting. Today, the patient is able to report a more stable mood. She is denying any suicidal or homicidal ideation, intention, and/or plan. She is denying any paranoia or other delusions. She is less forthcoming with her police about Cornelius today. She is not reporting any issues with sleep or appetite. She has been adherent with her medication is not reporting any significant side effects at this time. The patient was inquiring about the court process and was educated on what a court order would entail. She continues to be upset at the situation but appears to be in control of her emotions today. Mental Status Exam: General Appearance: Patient appears to be stated age is alert, difficult to direct and uncooperative. The patient is dressed in her same home clothes and is wearing multiple necklaces including a rosary. Behavior: Patient is seated calmly in the office without any agitated behavior. Eye contact is appropriate. Speech: Patient's speech is spontaneous, less pressured today, continues to be somewhat hyperverbal but is more interruptible. Mood/Affect: Mood is described as "okay." Affect is congruent and constricted today. Suicidality/Homicidality: Patient denies any suicidal or homicidal ideation, intention, and/or plan. Hallucinations: The patient denies any auditory or visual hallucinations. Though content/process: The patient is less forthcoming with her paranoid delusions. Thought process appears to be linear and logical in short conversation today. Memory and concentration: AOX3, grossly intact for the purposes of this session Judgment and insight: Mildly improving Assessment Schizoaffective disorder, bipolar type Nicotine dependence Plan: -Patient continues to meet criteria for inpatient psychiatric admission for symptom stabilization and safety. The patient has been petitioned and certified. A demand for mental health court hearing was filed. patient is scheduled for court on 07/26/2020. -Medications: Continue Lamictal 200 mg by mouth daily Increase Prolixin to 5 mg by mouth twice a day for management of psychosis Continue Seroquel 200 mg by mouth at bedtime -When necessary Haldol for agitation/aggression. -NRT - nicotine patch -SW on board for discharge planning. Encouraged the patient to participate in milieu.
[2020-07-20] MEDS: ONDANSETRON ODT 4 MG TAB PO PRN (20:23)
[2020-07-20] MEDS: QUEtiapine 200 MG TAB PO SCH (21:54)
[2020-07-21] MEDS: LORazepam 1 MG TAB PO PRN (01:30)
[2020-07-21] MEDS: MAGNESIUM OXIDE 400 MG TAB PO SCH (08:46)
[2020-07-21] MEDS: POTASSIUM CHLORIDE ER 10 MEQ TAB.ER.PRT PO SCH (08:46)
[2020-07-21] MEDS: lamoTRIgine 100 MG TAB PO SCH (08:46)
[2020-07-21] MEDS: SUCRALFATE 1 GM TAB PO SCH ×3 (08:46→21:44)
[2020-07-21 08:52] VITALS: RESP 16
[2020-07-21] MEDS: ONDANSETRON ODT 4 MG TAB PO PRN ×2 (10:12→19:44)
--- NOTE | 2020-07-21 10:48 | P.PN ---
Progress Note - Text Progress Note Date: 07/21/20 Interval History: Patient was seen wandering the hallways and was agreeable to speak with the chief underwriter in her room. The patient is reporting no significant symptoms of depression or anxiety at this time. She is denying any suicidal or homicidal ideation, intention, and/or plan. She is not reporting any auditory or visual hallucinations. She is denying any paranoia or other delusions. The patient states today that she feels like this time away from everything is beneficial. She is currently less forthcoming with her delusions but continues to maintain that she is not schizophrenic and that Cornelius really is out to get her. She is otherwise reporting some difficulty with sleep. She states that since Seroquel has been tapered down, she has been sleeping 3 hours or less per night. She denies any issues with appetite. She does report ongoing issues with nausea. The patient states that she has been drinking multiple cups of water throughout the day. She was advised that since she was previously hyponatremic, we have to limit her water intake. Mental Status Exam: General Appearance: Patient appears to be stated age is alert and cooperative and directable., The patient is dressed in her same home clothes and is wearing multiple necklaces including a rosary. Behavior: Patient is seated calmly in the office without any agitated behavior. Eye contact is appropriate. Speech: Patient's speech is spontaneous, with normal rate, tone, volume, and fluency. Mood/Affect: Mood is described as "a little nauseous." Affect is otherwise euthymic with appropriate range. Suicidality/Homicidality: Patient denies any suicidal or homicidal ideation, intention, and/or plan. Hallucinations: The patient denies any auditory or visual hallucinations. Though content/process: The patient is less forthcoming with her paranoid delusions. Thought process appears to be linear and logical in short conversation today. Memory and concentration: AOX3, grossly intact for the purposes of this session Judgment and insight: Mildly improving Assessment Schizoaffective disorder, bipolar type Nicotine dependence Plan: -Patient continues to meet criteria for inpatient psychiatric admission for symptom stabilization and safety. The patient has been petitioned and cert ified. A demand for mental health court hearing was filed. patient is scheduled for court on 07/26/2020. -BMP will be ordered today to monitor sodium. -Medications: Continue Lamictal 200 mg by mouth daily Increase Prolixin to 5 mg by mouth twice a day for management of psychosis. We will titrate to 7.5 mg by mouth twice a day over the weekend pending patient's response and tolerance of the medication. Our plan is to transition the patient to a long-acting injectable. Decrease Seroquel to 100 mg by mouth at bedtime with plans to taper off this medication over the weekend. Start trazodone 100 mg by mouth at bedtime for insomnia. -When necessary Haldol for agitation/aggression. -NRT - nicotine patch -SW on board for discharge planning. Encouraged the patient to participate in milieu.
[2020-07-21] MEDS ORDERED: LORATADINE 10 MG TAB PO SCH (11:15)
[2020-07-21 12:02] LABS: African American GFR (CKD) >90 (>60 ml/min/1.73 sqM); Anion Gap 9 mmol/L; Blood Urea Nitrogen 7 mg/dL (7-17); Carbon Dioxide 27 mmol/L (22-30); Chloride 102 mmol/L (98-107); Glucose 119 mg/dL (74-99); Non-African American GFR(CKD) 79 (>60 ml/min/1.73 sqM); Sodium 138 mmol/L (137-145)
[2020-07-21] MEDS: traZODone HCL 100 MG TAB PO SCH (21:44)
[2020-07-21] MEDS: QUEtiapine 100 MG TAB PO SCH (21:44)
[2020-07-22] MEDS: LORazepam 1 MG TAB PO PRN ×2 (02:19→21:53)
[2020-07-22 05:36] LABS: Appearance,Urine Clear (Clear); Bilirubin,Urine Negative (Negative); Blood,Urine Negative (Negative); Color,Urine Colorless; Glucose,Urine (UA) Negative (Negative); Ketones,Urine Negative (Negative); Leukocyte Esterase,Urine Negative (Negative); Nitrite,Urine Negative (Negative); Protein,Urine Negative (Negative); Specific Gravity,Urine 1.003 (1.001-1.035); Urobilinogen,Urine <2.0 mg/dL (<2.0)
[2020-07-22] MEDS: MAGNESIUM OXIDE 400 MG TAB PO SCH (08:20)
[2020-07-22] MEDS: lamoTRIgine 100 MG TAB PO SCH (08:21)
[2020-07-22] MEDS: POTASSIUM CHLORIDE ER 10 MEQ TAB.ER.PRT PO SCH (08:21)
[2020-07-22] MEDS: LORATADINE 10 MG TAB PO SCH (08:21)
[2020-07-22] MEDS: SUCRALFATE 1 GM TAB PO SCH ×3 (08:21→21:53)
[2020-07-22] MEDS ORDERED: FLUCONAZOLE 150 MG TAB PO STA (12:19)
[2020-07-22] MEDS: ONDANSETRON 4 MG TAB PO PRN ×2 (12:51→20:40)
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
[2020-07-22] MEDS: traZODone HCL 100 MG TAB PO SCH (21:53)
[2020-07-22] MEDS: QUEtiapine 100 MG TAB PO SCH (21:53)
[2020-07-23] MEDS: lamoTRIgine 100 MG TAB PO SCH ×2 (08:30→10:50)
[2020-07-23] MEDS: MAGNESIUM OXIDE 400 MG TAB PO SCH ×2 (08:30→10:50)
[2020-07-23] MEDS: POTASSIUM CHLORIDE ER 10 MEQ TAB.ER.PRT PO SCH ×2 (08:30→10:51)
[2020-07-23] MEDS: LORATADINE 10 MG TAB PO SCH ×3 (08:31→10:59)
[2020-07-23] MEDS: SUCRALFATE 1 GM TAB PO SCH ×5 (08:33→22:35)
[2020-07-23] MEDS: ONDANSETRON 4 MG TAB PO PRN ×2 (10:30→21:55)
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
[2020-07-23] MEDS: traZODone HCL 100 MG TAB PO SCH (22:35)
[2020-07-23] MEDS: QUEtiapine 100 MG TAB PO SCH (22:35)
[2020-07-24] MEDS: LORazepam 1 MG TAB PO PRN (01:19)
[2020-07-24] MEDS: ACETAMINOPHEN TAB 325 MG TAB PO PRN ×2 (01:19→08:32)
[2020-07-24] MEDS: lamoTRIgine 100 MG TAB PO SCH (08:34)
[2020-07-24] MEDS: LORATADINE 10 MG TAB PO SCH (08:35)
[2020-07-24] MEDS: POTASSIUM CHLORIDE ER 10 MEQ TAB.ER.PRT PO SCH (08:35)
[2020-07-24] MEDS: SUCRALFATE 1 GM TAB PO SCH ×3 (08:35→21:07)
[2020-07-24] MEDS: MAGNESIUM OXIDE 400 MG TAB PO SCH (08:35)
[2020-07-24] MEDS: ONDANSETRON 4 MG TAB PO PRN ×2 (09:51→19:42)
[2020-07-24] MEDS: MAG HYDROX/AL HYDROX/SIMETH 30 ML CUP PO PRN (10:21)
[2020-07-24] MEDS: traMADol 50 MG TAB PO PRN ×2 (11:57→23:51)
--- NOTE | 2020-07-24 12:05 | P.PN ---
Progress Note - Text Progress Note Date: 07/24/20 Interval History: Patient was seen wandering the hallways and was agreeable to speak with the science writer in the office. The patient reports that she is feeling better today. She states that her sister visited her over the weekend and that the visit went well. She states her sister brought her some makeup and that she is wearing a today and feels better. She is currently not reporting any suicidal or homicidal ideation, intention, and/or plan. She is not reporting any auditory or visual hallucinations. She is denying any paranoia or other delusions. The only paranoid statement that she makes the days that she wants to that a dog for her protection. She does not elaborate any further today. She understands that she is scheduled for court this Friday. She has been adherent to medications and is not reporting any significant side effects at this time. The patient needs to endorse some somatic complaints, in particular, nausea. She also reports that sleep has been difficult since she was tapered off her Seroquel. She is open to starting Remeron tonight for management of nausea/insomnia. Mental Status Exam: General Appearance: Patient appears to be stated age is alert and cooperative and directable. Good hygiene and grooming. Patient is wearing makeup today. Behavior: Patient is seated calmly in the office without any agitated behavior. Eye contact is appropriate. approach is cooperative and polite. Speech: Patient's speech is spontaneous, with normal rate, tone, volume, and fluency. Mood/Affect: Mood is described as "feeling better." Affect is otherwise euthymic bright. Suicidality/Homicidality: Patient denies any suicidal or homicidal ideation, intention, and/or plan. Hallucinations: The patient denies any auditory or visual hallucinations. Though content/process: The patient is less forthcoming with her paranoid delusions. Thought process appears to be linear and logical in short conversation today. Memory and concentration: AOX3, grossly intact for the purposes of this session Judgment and insight: Mildly improving Assessment Schizoaffective disorder, bipolar type Nicotine dependence Plan: -Patient continues to meet criteria for inpatient psychiatric admission for symptom stabilization and safety. The patient has been petitioned and certified. A demand for mental health court hearing was filed. patient is scheduled for court on 07/26/2020. -Medications: Continue Lamictal 200 mg by mouth daily Continue Prolixin 7.5 mg by mouth twice a day for management of psychosis. We will administer Prolixin decanoate tomorrow Discontinue trazodone, and start Remeron 7.5 mg by mouth at bedtime for management of insomnia/depression/nausea. -When necessary Haldol for agitation/aggression. -NRT - nicotine patch -SW on board for discharge planning. Encouraged the patient to participate in milieu.
[2020-07-24 12:56] VITALS: BMI 24.1
[2020-07-24] MEDS ORDERED: MIRTAZAPINE 15 MG TAB PO SCH (21:00)
[2020-07-25] MEDS: LORazepam 1 MG TAB PO PRN (02:09)
[2020-07-25] MEDS: SUCRALFATE 1 GM TAB PO SCH ×3 (07:46→21:54)
[2020-07-25] MEDS: LORATADINE 10 MG TAB PO SCH (07:46)
[2020-07-25] MEDS: POTASSIUM CHLORIDE ER 10 MEQ TAB.ER.PRT PO SCH (07:46)
[2020-07-25] MEDS: lamoTRIgine 100 MG TAB PO SCH (07:46)
[2020-07-25] MEDS: MAGNESIUM OXIDE 400 MG TAB PO SCH (07:46)
[2020-07-25] MEDS ORDERED: fluPHENAZine DECANOATE 25 MG/ML 5ML MDV IM STA (09:39)
--- NOTE | 2020-07-25 10:11 | P.PN ---
Progress Note - Text Progress Note Date: 07/25/20 Interval History: Patient was seen wandering the hallways and was agreeable to speak with the show card writer in the office. The patient reports that she is upset that her ex- was on the unit as he is part of the janitorial staff. She reports that this was the reason why she did not attend groups yesterday. She is currently not reporting any suicidal or homicidal ideation, intention, and/or plan. She is not reporting any auditory or visual hallucinations. She continues to feel paranoia towards Cornelius and feels like her safety is at risk and states that she will get her French Alvarez to protect her. She is otherwise not reporting any other delusions. She does not appear to be religiously preoccupied today. She has been adherent with the medications and is not reporting any significant side effects at this time. She is open to receiving the Prolixin Decanoate today. Mental Status Exam: General Appearance: Patient appears to be stated age is alert and cooperative and directable. Good hygiene and grooming. Patient is wearing makeup. Behavior: Patient is seated calmly in the office without any agitated behavior. Eye contact is appropriate. approach is cooperative and polite. Speech: Patient's speech is spontaneous, with normal rate, tone, volume, and fluency. Mood/Affect: Mood is described as "a little upset" Affect is otherwiseeuthymic. Suicidality/Homicidality: Patient denies any suicidal or homicidal ideation, intention, and/or plan. Hallucinations: The patient denies any auditory or visual hallucinations. Though content/process: The patient does endorse her paranoid delusions towards Cornelius. Thought process appears to be linear and logical in short conversation today. Memory and concentration: AOX3, grossly intact for the purposes of this session Judgment and insight: Mildly improving Assessment Schizoaffective disorder, bipolar type Nicotine dependence Plan: -Patient continues to meet criteria for inpatient psychiatric admission for symptom stabilization and safety. The patient has been petitioned and certified. A demand for mental health court hearing was filed. patient is scheduled for court on 07/26/2020. -Medications: Continue Lamictal 200 mg by mouth daily Continue Prolixin 7.5 mg by mouth twice a day for management of psychosis. We will start Prolixin Decanoate 25 mg IM today. The patient is to receive the long-acting injectable every 3-4 weeks Increase Remeron to 15 mg by mouth at bedtime for management of insomnia/depression/nausea. -When necessary Haldol for agitation/aggression. -NRT - nicotine patch -SW on board for discharge planning. Encouraged the patient to participate in milieu.
[2020-07-25] MEDS ORDERED: MIRTAZAPINE 15 MG TAB PO SCH (21:00)
[2020-07-25] MEDS: traMADol 50 MG TAB PO PRN (21:52)
[2020-07-25] MEDS: ONDANSETRON 4 MG TAB PO PRN (22:17)
[2020-07-26] MEDS: LORazepam 1 MG TAB PO PRN (00:12)
[2020-07-26] MEDS: ACETAMINOPHEN TAB 325 MG TAB PO PRN (01:58)
[2020-07-26 06:45] VITALS: BP 109/72; PULSE 107; TEMP 97.1
[2020-07-26] MEDS: POTASSIUM CHLORIDE ER 10 MEQ TAB.ER.PRT PO SCH (07:57)
[2020-07-26] MEDS: lamoTRIgine 100 MG TAB PO SCH (07:57)
[2020-07-26] MEDS: LORATADINE 10 MG TAB PO SCH (07:57)
[2020-07-26] MEDS: SUCRALFATE 1 GM TAB PO SCH (07:57)
[2020-07-26] MEDS: MAGNESIUM OXIDE 400 MG TAB PO SCH (07:57)
[2020-07-26] MEDS: traMADol 50 MG TAB PO PRN (07:59)
[2020-07-26] MEDS: ONDANSETRON 4 MG TAB PO PRN (10:55)
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
== END 2020-07-26 13:58 | disposition home or self-care (01) | DRG 885 ==
LOC: 3MHU 22:51
PROVIDERS: ADMIT Psychiatry & Neurology Psychiatry; ATTEND Psychiatry & Neurology Psychiatry
DX: F25.0 Schizoaffective disorder, bipolar type (principal); E87.1 Hypo-osmolality and hyponatremia; F17.210 Nicotine dependence, cigarettes, uncomplicated; E86.0 Dehydration; Z63.5 Disruption of family by separation and divorce; Z62.810 Personal history of physical and sexual abuse in childhood; G47.00 Insomnia, unspecified; Z56.0 Unemployment, unspecified; Z79.899 Other long term (current) drug therapy; Z81.8 Family history of other mental and behavioral disorders; K58.0 Irritable bowel syndrome with diarrhea; Z90.49 Acquired absence of other specified parts of digestive tract; Z98.51 Tubal ligation status; Z98.82 Breast implant status
CPT/HCPCS: 80048; 80061; 81003; 83036

== ENCOUNTER 2020-07-31 09:32 | Inpatient (IN) | payer MEDICAID, OTHER ==
[2020-07-31] MEDS ORDERED: NICOTINE 14MG/24HR PATCH TRANSDERM STA (10:21)
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
[2020-07-31 11:16] LABS: Amphetamine Screen,Urine Not Detected (NotDetected); Barbiturate Screen,Urine Not Detected (NotDetected); Benzodiazepines Screen,Urine Not Detected (NotDetected); Cocaine Screen,Urine Not Detected (NotDetected); Methadone Screen, Urine Not Detected (NotDetected); Opiate Screen,Urine Not Detected (NotDetected); Oxycodone Screen, Urine Not Detected (NotDetected); Phencyclidine Screen,Urine Not Detected (NotDetected); Tricyclic Antidepressant,Urine Not Detected (NotDetected); Urn Cannabinoid Scrn Not Detected (NotDetected)
[2020-07-31] MEDS ORDERED: ZIPRASIDONE 20 MG VIAL IM STA (11:45)
[2020-07-31] MEDS ORDERED: LORazepam 2 MG/ML INJ IV STA (11:45)
[2020-07-31 12:15] LABS: Appearance,Urine Clear (Clear); Bilirubin,Urine Negative (Negative); Blood,Urine Negative (Negative); Color,Urine Light Yellow; Glucose,Urine (UA) Negative (Negative); Ketones,Urine Negative (Negative); Leukocyte Esterase,Urine Negative (Negative); Nitrite,Urine Negative (Negative); PH, Urine 5.5 (5.0-8.0); Protein,Urine Negative (Negative); Specific Gravity,Urine 1.006 (1.001-1.035); Urobilinogen,Urine <2.0 mg/dL (<2.0)
[2020-07-31 12:30] LABS: Basophils % (A) 0 %; Eosinophils # (A) 0.1 k/uL (0-0.7); Eosinophils % (A) 1 %; HCT 38.1 % (34.0-46.0); HGB 13.1 gm/dL (11.4-16.0); Lymphocytes # (A) 1.7 k/uL (1.0-4.8); Lymphocytes % (A) 30 %; MCH 32.5 pg (25.0-35.0); MCHC 34.4 g/dL (31.0-37.0); MCV 94.6 fL (80.0-100.0); Mean Platelet Volume 6.9; Monocytes # (A) 0.4 k/uL (0-1.0); Monocytes % (A) 7 %; Neutrophils # (A) 3.2 k/uL (1.3-7.7); Neutrophils % (A) 58 %; Platelet Count 303 k/uL (150-450); RBC 4.03 m/uL (3.80-5.40); RDW 14.1 % (11.5-15.5); WBC 5.5 k/uL (3.8-10.6)
[2020-07-31 12:37] LABS: ALT 72 U/L (4-34); AST 48 U/L (14-36); African American GFR (CKD) >90 (>60 ml/min/1.73 sqM); Albumin 4.1 g/dL (3.5-5.0); Alkaline Phosphatase 64 U/L (38-126); Anion Gap 10 mmol/L; Blood Urea Nitrogen 5 mg/dL (7-17); Calcium 9.5 mg/dL (8.4-10.2); Carbon Dioxide 22 mmol/L (22-30); Chloride 103 mmol/L (98-107); Glucose 116 mg/dL (74-99); Non-African American GFR(CKD) >90 (>60 ml/min/1.73 sqM); Potassium 3.3 mmol/L (3.5-5.1); Sodium 135 mmol/L (137-145); Total Bilirubin 0.5 mg/dL (0.2-1.3); Total Protein 6.5 g/dL (6.3-8.2)
[2020-07-31] MEDS ORDERED: LORazepam 2 MG/ML INJ IM PRN (13:56)
[2020-07-31] MEDS ORDERED: flUPHENAZine 2.5 MG/ML (MDV) 10 ML VIAL IM PRN (13:56)
[2020-07-31] MEDS: SUCRALFATE 1 GM TAB PO SCH ×2 (15:56→20:35)
[2020-07-31] MEDS ORDERED: MIRTAZAPINE 15 MG TAB PO SCH (21:00)
[2020-07-31] MEDS: traMADol 50 MG TAB PO PRN (21:35)
[2020-07-31] MEDS: LORazepam 1 MG TAB PO PRN (22:03)
--- NOTE | 2020-08-01 00:55 | P.PN ---
Progress Note - Text Progress Note Date: 07/31/20 patient informed RN , she has not slept in days , and wanted to sleep , will evaluate when she is more stable and awake
[2020-08-01] MEDS: ACETAMINOPHEN TAB 325 MG TAB PO PRN ×3 (04:04→13:35)
[2020-08-01] MEDS: traMADol 50 MG TAB PO PRN ×3 (04:49→18:56)
[2020-08-01] MEDS: NICOTINE 14MG/24HR PATCH TRANSDERM SCH (08:00)
[2020-08-01] MEDS: MAGNESIUM OXIDE 400 MG TAB PO SCH (08:01)
[2020-08-01] MEDS: SUCRALFATE 1 GM TAB PO SCH ×3 (08:01→21:57)
[2020-08-01] MEDS: LORATADINE 10 MG TAB PO SCH (08:01)
[2020-08-01] MEDS ORDERED: lamoTRIgine 100 MG TAB PO SCH (09:00)
[2020-08-01] MEDS ORDERED: ZIPRASIDONE 20 MG VIAL IM PRN (11:08)
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
[2020-08-01] MEDS: ONDANSETRON 4 MG TAB PO PRN (11:22)
[2020-08-01] MEDS: LORazepam 1 MG TAB PO PRN (14:49)
[2020-08-01] MEDS: MELATONIN 5 MG TABLET PO SCH (21:57)
[2020-08-01] MEDS: MIRTAZAPINE 15 MG TAB PO SCH (21:58)
[2020-08-02] MEDS: NICOTINE 14MG/24HR PATCH TRANSDERM SCH (08:19)
[2020-08-02] MEDS: SUCRALFATE 1 GM TAB PO SCH ×3 (08:19→20:03)
[2020-08-02] MEDS: LORATADINE 10 MG TAB PO SCH (08:20)
[2020-08-02] MEDS: MAGNESIUM OXIDE 400 MG TAB PO SCH (08:20)
[2020-08-02] MEDS: ONDANSETRON 4 MG TAB PO PRN (08:52)
[2020-08-02] MEDS ORDERED: lamoTRIgine 100 MG TAB PO SCH (09:00)
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
[2020-08-02] MEDS: traMADol 50 MG TAB PO PRN ×3 (10:06→20:00)
[2020-08-02] MEDS: ACETAMINOPHEN TAB 325 MG TAB PO PRN (13:09)
[2020-08-02] MEDS: MELATONIN 5 MG TABLET PO SCH (20:03)
[2020-08-02] MEDS: DIVALPROEX ER 250 MG TAB.ER.24H PO SCH (20:04)
[2020-08-02] MEDS: MIRTAZAPINE 15 MG TAB PO SCH (20:06)
[2020-08-02] MEDS: LORazepam 1 MG TAB PO PRN (22:46)
[2020-08-03] MEDS: traMADol 50 MG TAB PO PRN ×3 (06:42→20:51)
[2020-08-03] MEDS: NICOTINE 14MG/24HR PATCH TRANSDERM SCH (08:16)
[2020-08-03] MEDS: SUCRALFATE 1 GM TAB PO SCH ×3 (08:17→21:45)
[2020-08-03] MEDS: MAGNESIUM OXIDE 400 MG TAB PO SCH (08:18)
[2020-08-03] MEDS: LORATADINE 10 MG TAB PO SCH (08:18)
[2020-08-03] MEDS ORDERED: lamoTRIgine 100 MG TAB PO SCH (09:00)
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
[2020-08-03] MEDS: ACETAMINOPHEN TAB 325 MG TAB PO PRN ×2 (10:18→18:31)
[2020-08-03] MEDS: DIVALPROEX ER 250 MG TAB.ER.24H PO SCH (21:43)
[2020-08-03] MEDS: MELATONIN 5 MG TABLET PO SCH (21:44)
[2020-08-03] MEDS: MIRTAZAPINE 15 MG TAB PO SCH (21:44)
[2020-08-04] MEDS ORDERED: traMADol 50 MG TAB ONE (06:26)
[2020-08-04] MEDS: SUCRALFATE 1 GM TAB PO SCH ×3 (08:03→22:06)
[2020-08-04] MEDS: LORATADINE 10 MG TAB PO SCH (08:03)
[2020-08-04] MEDS: MAGNESIUM OXIDE 400 MG TAB PO SCH (08:03)
[2020-08-04] MEDS: NICOTINE 14MG/24HR PATCH TRANSDERM SCH (08:05)
[2020-08-04] MEDS ORDERED: lamoTRIgine 25 MG TAB PO SCH (09:00)
--- NOTE | 2020-08-04 09:56 | P.PN ---
Progress Note - Text Progress Note Date: 08/04/20 Interval History: Patient was seen wandering the hallways and was directable and agreeable to speak with check writer salesperson in the office. Patient reports that today she is feeling well. She is currently not reporting any suicidal or homicidal ideation, intention, and/or plan. She is not reporting any auditory or visual hallucinations. She is denying any overt paranoia or other delusions. When exploring her thoughts on "Cornelius," the patient appears to be less distressed and more nonchalant about the situation. She states that it will be up to authorities at this point. She denies any issues regarding her safety. Currently, she is reporting that she has issues with a "yeast infection." She states that she is experiencing some pain and itching in the region. She otherwise is less somatic regarding her nausea and vomiting stating that this is significantly improved. She is not reporting any issues with sleep or appetite either. Occasions is not reporting any significant side effects at this time. Mental Status Exam: General Appearance: Patient appears to be stated age is alert, directable, and cooperative. Dressed in a pink [employer] shirt. Nails are done. Good hygiene and grooming. Behavior: Patient is calmly seated without any agitated behavior. Psychomotor activity is normal. Speech: Patient's speech is fluent and nonpressured. Spontaneous, with normal tone and volume. Mood/Affect: Mood is improving mildly, affect is congruent and constricted. Suicidality/Homicidality: Patient denies having any suicidal or homicidal ideation intent or plan. Perceptions: Patient denies any visual hallucinations and denies any auditory hallucinations Though content/process: Mild paranoid thought content. Less overt. Linear and logical in short conversation. Memory and concentration: AOX3, grossly intact for the purposes of this session Judgment and insight: Improving mildly Assessment Schizoaffective disorder, bipolar type Nicotine dependence Plan: -Patient continues to meet criteria for inpatient psychiatric admission for symptom stabilization and safety. Patient has signed adult voluntary form and medication consent and was placed in patient's chart. -Medications: Patient was last given Prolixin 25 mg IM on 07/25/2020. May consider administering 50 mg IM when next dose is due. Increase oral prolixin to 10 mg by mouth twice daily for mood stabilization/psychosis. As patient is court ordered, and the patient refuses her oral Prolixin, administer 20 mg IM of Geodon. Continue Remeron to 7.5 mg at bedtime We will decrease Lamictal to 50 mg tomorrow and Continue Depakote 500 mg at bedtime. Over the weekend, continue to taper Lamictal and cross-titrate with depakote. -When necessary Ativan and Geodon for agitation/aggression. -NRT - nicotine patch -SW on board for discharge planning. Encouraged the patient to participate in milieu.
[2020-08-04] MEDS: traMADol 50 MG TAB PO PRN ×2 (12:01→20:42)
[2020-08-04] MEDS: ACETAMINOPHEN TAB 325 MG TAB PO PRN ×2 (13:13→22:10)
[2020-08-04] MEDS ORDERED: LOPERAMIDE 2 MG CAP PO PRN (17:24)
[2020-08-04] MEDS: ONDANSETRON 4 MG TAB PO PRN (21:07)
[2020-08-04] MEDS: DIVALPROEX ER 500 MG TAB.ER.24H PO SCH (22:07)
[2020-08-04] MEDS: MIRTAZAPINE 15 MG TAB PO SCH (22:08)
[2020-08-04] MEDS: MELATONIN 5 MG TABLET PO SCH (22:08)
[2020-08-05 07:01] VITALS: RESP 16
[2020-08-05] MEDS: MAGNESIUM OXIDE 400 MG TAB PO SCH (07:50)
[2020-08-05] MEDS: LORATADINE 10 MG TAB PO SCH (07:50)
[2020-08-05] MEDS: traMADol 50 MG TAB PO PRN ×2 (07:51→22:20)
[2020-08-05] MEDS: SUCRALFATE 1 GM TAB PO SCH ×3 (07:51→22:20)
[2020-08-05] MEDS: NICOTINE 14MG/24HR PATCH TRANSDERM SCH (07:51)
[2020-08-05] MEDS ORDERED: lamoTRIgine 25 MG TAB PO SCH (09:00)
[2020-08-05] MEDS: ACETAMINOPHEN TAB 325 MG TAB PO PRN (09:55)
--- NOTE | 2020-08-05 12:03 | P.PN ---
Progress Note - Text Progress Note Date: 08/05/20 This patient stated that she is feeling better today. She is denying any auditory or visual hallucinations. This patient is known to me from her previous admission and still appears to have some underlying paranoia. She is more aware of her mental illness and is not willing to talk about any of her thought content. She denied having any suicidal or homicidal thoughts ideations or plans. She also denied having any physical problems. This patient will continue to be monitored in the milieu. She is evasive and guarded. She is wandering around in the hallways. At times she stares and does not communicate with other people.
[2020-08-05] MEDS ORDERED: FLUCONAZOLE 150 MG TAB PO STA (14:25)
[2020-08-05] MEDS: MELATONIN 5 MG TABLET PO SCH (22:20)
[2020-08-05] MEDS: MIRTAZAPINE 15 MG TAB PO SCH (22:21)
[2020-08-05] MEDS: DIVALPROEX ER 500 MG TAB.ER.24H PO SCH (22:21)
[2020-08-05] MEDS: ONDANSETRON 4 MG TAB PO PRN (23:07)
[2020-08-06] MEDS: MAGNESIUM OXIDE 400 MG TAB PO SCH (08:35)
[2020-08-06] MEDS: lamoTRIgine 25 MG TAB PO SCH (08:35)
[2020-08-06] MEDS: LORATADINE 10 MG TAB PO SCH (08:35)
[2020-08-06] MEDS: traMADol 50 MG TAB PO PRN ×2 (08:36→15:45)
[2020-08-06] MEDS: SUCRALFATE 1 GM TAB PO SCH ×3 (08:36→21:25)
[2020-08-06] MEDS: NICOTINE 14MG/24HR PATCH TRANSDERM SCH (08:36)
[2020-08-06] MEDS: ONDANSETRON 4 MG TAB PO PRN ×2 (08:37→20:24)
[2020-08-06] MEDS: ACETAMINOPHEN TAB 325 MG TAB PO PRN ×2 (11:59→23:01)
--- NOTE | 2020-08-06 12:22 | P.PN ---
Progress Note - Text Progress Note Date: 08/06/20 Patient has previous diagnoses of bipolar disorder, schizoaffective disorder, bipolar type, anxiety, and depression. She was last admitted on to the psychiatric unit from 07/05/2020 to 07/26/[address] order for mental health treatment currently. This patient continues to be paranoid, and delusional and does not trust other people. She has ongoing delusions of persecution. She stays in her room most of the time or wanders in the halls aimlessly. She is taking her medication and does not appear to show any side effects of it. She will continue to be encouraged to participate in milieu activities.
[2020-08-06] MEDS: LORazepam 1 MG TAB PO PRN (19:04)
[2020-08-06] MEDS: DIVALPROEX ER 500 MG TAB.ER.24H PO SCH (20:24)
[2020-08-06] MEDS: MIRTAZAPINE 15 MG TAB PO SCH (20:24)
[2020-08-06] MEDS: MELATONIN 5 MG TABLET PO SCH (20:25)
[2020-08-07 06:29] VITALS: BP 101/61; PULSE 104
[2020-08-07] MEDS: SUCRALFATE 1 GM TAB PO SCH ×3 (08:23→20:24)
[2020-08-07] MEDS: LORATADINE 10 MG TAB PO SCH (08:23)
[2020-08-07] MEDS: MAGNESIUM OXIDE 400 MG TAB PO SCH (08:23)
[2020-08-07] MEDS: NICOTINE 14MG/24HR PATCH TRANSDERM SCH (08:23)
[2020-08-07] MEDS: lamoTRIgine 25 MG TAB PO SCH (08:23)
[2020-08-07] MEDS: traMADol 50 MG TAB PO PRN ×2 (08:24→16:37)
[2020-08-07] MEDS: ONDANSETRON 4 MG TAB PO PRN ×2 (08:26→20:24)
--- NOTE | 2020-08-07 11:21 | P.PN ---
Progress Note - Text Progress Note Date: 08/07/20 Interval History: Patient was seen in the group room socializing with peers and was directable and agreeable to speak with science writer in the office. The patient reports that she is doing well. She continues to endorse somatic complaints of nausea and vomiting and states that this is alleviated only with Zofran. She is otherwise not reporting any suicidal or homicidal ideation, intention, and/or plan. She is denying any auditory or visual hallucinations. She is currently denying any symptoms of paranoia or other delusions. She states today her going to [facility] multiple times at night due to her fear of Cornelius was an overreaction. She reports that she will just focus on herself and trust that he is being investigated. She has been adherent with her medications and is otherwise tolerating them well. Mental Status Exam: General Appearance: Patient appears to be stated age is alert, directable, and cooperative. Dressed in a alaniz sweater. Behavior: Patient is calmly seated without any agitated behavior. Psychomotor activity is normal. Speech: Patient's speech is fluent and nonpressured. Spontaneous, with normal tone and volume. Mood/Affect: Mood is improving mildly, affect is congruent and constricted. Suicidality/Homicidality: Patient denies having any suicidal or homicidal ideation intent or plan. Perceptions: Patient denies any visual hallucinations and denies any auditory hallucinations Though content/process: Mild paranoid thought content. Less overt. Linear and logical in short conversation. Memory and concentration: AOX3, grossly intact for the purposes of this session Judgment and insight: Improving mildly Assessment Schizoaffective disorder, bipolar type Nicotine dependence Plan: -Patient continues to meet criteria for inpatient psychiatric admission for symptom stabilization and safety. Patient has signed adult voluntary form and medication consent and was placed in patient's chart. -Medications: Patient was last given Prolixin 25 mg IM on 07/25/2020. May consider administering 50 mg IM when next dose is due. Continue Prolixin 10 mg by mouth twice daily for mood stabilization/psychosis. Continue Remeron to 7.5 mg at bedtime Discontinue Lamictal. Continue Depakote 500 mg at bedtime. -Depakote level and BMP are ordered. -When necessary Ativan and Geodon for agitation/aggression. -NRT - nicotine patch -SW on board for discharge planning. Encouraged the patient to participate in milieu.
[2020-08-07 12:51] LABS: African American GFR (CKD) >90 (>60 ml/min/1.73 sqM); Anion Gap 9 mmol/L; Blood Urea Nitrogen 10 mg/dL (7-17); Calcium 10.2 mg/dL (8.4-10.2); Carbon Dioxide 28 mmol/L (22-30); Chloride 102 mmol/L (98-107); Glucose 110 mg/dL (74-99); Non-African American GFR(CKD) 82 (>60 ml/min/1.73 sqM); Potassium 4.6 mmol/L (3.5-5.1); Sodium 139 mmol/L (137-145)
[2020-08-07 12:56] LABS: Valproic Acid (Depakene) 27.7 ug/mL
[2020-08-07 16:13] VITALS: TEMP 97.7
[2020-08-07] MEDS: MELATONIN 5 MG TABLET PO SCH (20:23)
[2020-08-07] MEDS: DIVALPROEX ER 500 MG TAB.ER.24H PO SCH (20:23)
[2020-08-07] MEDS: MIRTAZAPINE 15 MG TAB PO SCH (20:23)
[2020-08-07] MEDS: LORazepam 1 MG TAB PO PRN (20:26)
[2020-08-08] MEDS: NICOTINE 14MG/24HR PATCH TRANSDERM SCH (08:39)
[2020-08-08] MEDS: MAGNESIUM OXIDE 400 MG TAB PO SCH (08:39)
[2020-08-08] MEDS: LORATADINE 10 MG TAB PO SCH (08:39)
[2020-08-08] MEDS: SUCRALFATE 1 GM TAB PO SCH (08:39)
[2020-08-08] MEDS: traMADol 50 MG TAB PO PRN (08:40)
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
== END 2020-08-08 10:06 | disposition home or self-care (01) | DRG 885 ==
LOC: EC 09:32 → 3MHU 13:45
PROVIDERS: ADMIT Psychiatry & Neurology Psychiatry; ATTEND Psychiatry & Neurology Psychiatry
DX: F25.0 Schizoaffective disorder, bipolar type (principal); E87.1 Hypo-osmolality and hyponatremia; B37.9 Candidiasis, unspecified; G47.00 Insomnia, unspecified; F06.4 Anxiety disorder due to known physiological condition; Z20.822 Contact with and (suspected) exposure to COVID-19; K21.9 Gastro-esophageal reflux disease without esophagitis; R19.4 Change in bowel habit; Z78.1 Physical restraint status; F17.210 Nicotine dependence, cigarettes, uncomplicated; Z71.6 Tobacco abuse counseling; Z79.899 Other long term (current) drug therapy; Z90.49 Acquired absence of other specified parts of digestive tract; Z98.891 History of uterine scar from previous surgery; Z87.19 Personal history of other diseases of the digestive system; Z98.51 Tubal ligation status; Z98.82 Breast implant status; W07.XXXA Fall from chair, initial encounter; Z81.1 Family history of alcohol abuse and dependence; Z81.8 Family history of other mental and behavioral disorders
CPT/HCPCS: 36415; 80048; 80053; 80164; 80306; 81003; 82075; 85025; 87635; 96372; 96374; 99285

== ENCOUNTER → 2020-12-28 | Outpatient (CLI) | payer OTHER ==
--- NOTE | 2020-12-29 07:12 | US ---
EXAMINATION TYPE: US thyroid st tissue head/neck DATE OF EXAM: 12/28/2020 COMPARISON: NONE CLINICAL HISTORY: R13.10 SWALLOWING PROBLEM,E04.9 ENLARGED THYROID. Patient states having an episode where she had difficulty swallowing and breathing. GLAND SIZE: Right Lobe: 3.7 x 1.1 x 2.3 cm Overall Parenchyma: heterogenous Left Lobe: 3.9 x 1.3 x 1.7 cm Overall Parenchyma: heterogeneous Isthmus Thickness: 0.3 cm NODULES RIGHT: # of nodules measured on right: 1 1. 0.4 X 0.4 x 0.4 cm, mid , cystic or almost completely cystic, anechoic nodule, which is wider as tall, with smooth margins, with echogenic foci. Prior size: No prior LEFT: # of nodules measured on left: 0 ISTHMUS: # of nodules measured in the isthmus: 0 Bilateral neck scanned, no evidence of lymphadenopathy. Heterogeneous somewhat small thyroid with incidental occasional sub-5 mm nodules. IMPRESSION: As above
== END | disposition home or self-care (01) ==
LOC: RADUSWWP 17:02
PROVIDERS: ATTEND Registered Nurse
DX: E04.1 Nontoxic single thyroid nodule (principal); R13.10 Dysphagia, unspecified
CPT/HCPCS: 76536

== ENCOUNTER 2021-11-07 15:56 | Emergency (ER) | payer OTHER ==
[2021-11-07 16:06] VITALS: RESP 16; TEMP 98.6
--- NOTE | 2021-11-07 16:45 | ED ---
General Adult HPI - General Chief complaint: Neuro Symptoms/Deficit Stated complaint: L side facial drooping Time Seen by Provider: 11/07/21 16:09 Source: patient, RN notes reviewed, old records reviewed Mode of arrival: wheelchair Limitations: no limitations - History of Present Illness Initial comments: 61-year-old female presenting for evaluation of right facial droop which began yesterday at approximately 3 PM. Patient denied limb numbness or weakness. No history of hypertension or diabetes. No history of previous CVA. As pain, no abdominal pain, no fever. She presents today at approximately 4 PM 25 hours after onset. - Related Data Home Medications Medication Instructions Recorded Confirmed fluPHENAZine decanoate [Prolixin 25 mg IM Q30D 07/31/20 07/31/20 Decanoate] Previous Rx's Medication Instructions Recorded fluPHENAZine [Prolixin 1MG] 1 mg PO BID 30 Days tablet 07/26/20 Divalproex ER [Depakote ER] 500 mg PO HS 30 Days tab.er.24h 08/08/20 Loratadine [Claritin] 10 mg PO DAILY 30 Days tab 08/08/20 Melatonin 5 mg PO HS 30 Days tablet 08/08/20 Mirtazapine [Remeron] 7.5 mg PO HS 30 Days tab 08/08/20 Nicotine 14Mg/24Hr Patch [Habitrol] 1 patch TRANSDERM DAILY 30 Days 08/08/20 patch Ondansetron [Zofran] 4 mg PO Q6H PRN 14 Days tab 08/08/20 Sucralfate [Carafate] 1 gm PO TID 30 Days tab 08/08/20 fluPHENAZine [Prolixin] 10 mg PO BID 30 Days tab 08/08/20 predniSONE [Deltasone] 60 mg PO DAILY 7 Days tab 11/07/21 predniSONE [Deltasone] 60 mg PO DAILY 7 Days #21 tab 11/07/21 Allergies Allergy/AdvReac Type Severity Reaction Status Date / Time No Known Allergies Allergy Verified 11/07/21 16:05 Review of Systems ROS Statement: Those systems with pertinent positive or pertinent negative responses have been documented in the HPI. ROS Other: All systems not noted in ROS Statement are negative. Past Medical History Past Medical History: GERD/Reflux Additional Past Medical History / Comment(s): CHANGE IN BOWEL MOVEMENTS., HAVING PAIN IN STOMACH ,REFLUX WITH NAUSEA AND VOMITING. History of Any Multi-Drug Resistant Organisms: None Reported Past Surgical History: Appendectomy, Bowel Resection, Breast Surgery, Section, Cholecystectomy, Hernia Repair, Tubal Ligation Additional Past Surgical History / Comment(s): HERNIATED BOWEL REQUIRED BOWEL RESECTION., BREAST IMPLANTS, Pt. states "L breast imploded and the R implant needs to be removed. Past Anesthesia/Blood Transfusion Reactions: No Reported Reaction Additional Past Anesthesia/Blood Transfusion Reaction / Comment(s): HX OF BLOOD TRANSFUSION-NO REACTION Past Psychological History: Anxiety, Bipolar, Depression Smoking Status: Current every day smoker Past Alcohol Use History: None Reported Past Drug Use History: None Reported - Past Family History Mother Family Medical History: No Reported History Father Additional Family Medical History / Comment(s): COMMITTED SUICIDE AT AGE 28 General Exam Limitations: no limitations General appearance: alert, in no apparent distress Head exam: Present: atraumatic, normocephalic Eye exam: Present: normal appearance, PERRL ENT exam: Present: normal exam Neck exam: Present: normal inspection. Absent: tenderness, meningismus Respiratory exam: Present: normal lung sounds bilaterally. Absent: respiratory distress, wheezes Cardiovascular Exam: Present: regular rate, normal rhythm GI/Abdominal exam: Present: soft. Absent: distended, tenderness, guarding Extremities exam: Present: normal inspection, normal capillary refill, calf tenderness. Absent: pedal edema Neurological exam: Present: alert, oriented X3, motor sensory deficit (Right facial weakness, facial droop with no forehead sparing) Psychiatric exam: Present: normal affect, normal mood Skin exam: Present: warm, dry, intact. Absent: cyanosis, diaphoretic Course Vital Signs 11/07/21 11/07/21 16:02 17:58 Temperature 98.6 F Pulse Rate 100 87 Respiratory 16 16 Rate Blood Pressure 124/67 137/64 O2 Sat by Pulse 97 98 Oximetry EKG Findings - EKG Comments: EKG Findings:: EKG sinus rhythm low voltage, rate of 94, NJ interval 165, QRS duration 94, QTC [address] segment elevation. Medical Decision Making - Medical Decision Making 61-year-old female presenting with left-sided facial droop. 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 This does involve the forehead. There is no speech abnormality, no limb weakness. I did perform basic laboratory testing, and head CT CT negative for acute process, laboratory studies reveal hypona tremia which the patient has had before. She will increase her sodium intake. She started on prednisone in the emergency department. She's given very strict return parameters including any speech abnormalities, headache, focal limb weakness or numbness she will return the emergency prompt. Otherwise she will follow-up with her primary care physician. Tape her eye at night and use ointment and drops. - Lab Data Result diagrams: 11/07/21 16:41 11/07/21 17:10 Lab Results 11/07/21 11/07/21 11/07/21 Range/Units 16:41 16:41 17:10 WBC 7.3 (3.8-10.6) k/uL RBC 3.72 L (3.80-5.40) m/uL Hgb 12.5 (11.4-16.0) gm/dL Hct 36.7 (34.0-46.0) % MCV 98.7 (80.0-100.0) fL MCH 33.6 (25.0-35.0) pg MCHC 34.1 (31.0-37.0) g/dL RDW 13.8 (11.5-15.5) % Plt Count 287 (150-450) k/uL MPV 7.0 Neutrophils % 69 % Lymphocytes % 24 % Monocytes % 4 % Eosinophils % 1 % Basophils % 1 % Neutrophils # 5.0 (1.3-7.7) k/uL Lymphocytes # 1.7 (1.0-4.8) k/uL Monocytes # 0.3 (0-1.0) k/uL Eosinophils # 0.1 (0-0.7) k/uL Basophils # 0.0 (0-0.2) k/uL PT 10.6 (9.0-12.0) sec INR 1.0 (<1.2) APTT 25.0 (22.0-30.0) sec Sodium 124 L (137-145) mmol/L Potassium 4.0 (3.5-5.1) mmol/L Chloride 94 L (98-107) mmol/L Carbon Dioxide 20 L (22-30) mmol/L Anion Gap 10 mmol/L BUN 12 (7-17) mg/dL Creatinine 0.66 (0.52-1.04) mg/dL Est GFR (CKD-EPI)AfAm >90 (>60 ml/min/1.73 sqM) Est GFR (CKD-EPI)NonAf >90 (>60 ml/min/1.73 sqM) Glucose 102 H (74-99) mg/dL Calcium 9.1 (8.4-10.2) mg/dL Total Bilirubin 0.2 (0.2-1.3) mg/dL AST 30 (14-36) U/L ALT 19 (4-34) U/L Alkaline Phosphatase 70 (38-126) U/L Total Protein 6.9 (6.3-8.2) g/dL Albumin 4.4 (3.5-5.0) g/dL Disposition Clinical Impression: Bloom's palsy Disposition: HOME SELF-CARE Condition: Fair Instructions (If sedation given, give patient instructions): Bloom Palsy (ED) Additional Instructions: Please using [id number] artificial tears and eye ointment. Please take your eye shut at night. Please follow up with her primary care physician. Prescriptions: predniSONE [Deltasone] 60 mg PO DAILY 7 Days tab predniSONE [Deltasone] 60 mg PO DAILY 7 Days #21 tab Is patient prescribed a controlled substance at d/c from ED?: No Referrals: Amy Renner NPC [REFERRING] - 1-2 days Time of Disposition: 18:07
[2021-11-07 16:52] LABS: Basophils % (A) 1 %; Eosinophils # (A) 0.1 k/uL (0-0.7); Eosinophils % (A) 1 %; HCT 36.7 % (34.0-46.0); HGB 12.5 gm/dL (11.4-16.0); Lymphocytes # (A) 1.7 k/uL (1.0-4.8); Lymphocytes % (A) 24 %; MCH 33.6 pg (25.0-35.0); MCHC 34.1 g/dL (31.0-37.0); MCV 98.7 fL (80.0-100.0); Monocytes # (A) 0.3 k/uL (0-1.0); Monocytes % (A) 4 %; Neutrophils % (A) 69 %; Platelet Count 287 k/uL (150-450); RBC 3.72 m/uL (3.80-5.40); RDW 13.8 % (11.5-15.5); WBC 7.3 k/uL (3.8-10.6)
--- NOTE | 2021-11-07 17:24 | CT ---
EXAMINATION TYPE: CT brain wo con DATE OF EXAM: 11/07/2021 COMPARISON: 04/13/2011 INDICATION: Left sided facial droop. DLP: 1084.4 mGycm, Automated exposure control for dose reduction was used. CONTRAST: None CT of the brain is performed utilizing 3 mm thick sections through the posterior fossa and 3 mm thick sections through the remaining calvarium. Study is performed within 24 hours of arrival to the hosp ital. No abnormal hyperdensity is present to suggest an acute intracranial hemorrhage. No mass lesion is evident. No acute infarcts are evident. No suspicious acute changes to account for left facial droop. Recommen d follow-up MRI for additional evaluation. Ventricles and sulci are appropriate for the patient age. Paranasal sinuses and mastoid air cells within the [id number] are clear. IMPRESSIONS: 1. No acute intracranial process. Recommend MRI for additional workup.
[2021-11-07 17:38] LABS: ALT 19 U/L (4-34); AST 30 U/L (14-36); African American GFR (CKD) >90 (>60 ml/min/1.73 sqM); Albumin 4.4 g/dL (3.5-5.0); Alkaline Phosphatase 70 U/L (38-126); Anion Gap 10 mmol/L; Blood Urea Nitrogen 12 mg/dL (7-17); Calcium 9.1 mg/dL (8.4-10.2); Carbon Dioxide 20 mmol/L (22-30); Chloride 94 mmol/L (98-107); Glucose 102 mg/dL (74-99); Non-African American GFR(CKD) >90 (>60 ml/min/1.73 sqM); Sodium 124 mmol/L (137-145); Total Bilirubin 0.2 mg/dL (0.2-1.3); Total Protein 6.9 g/dL (6.3-8.2)
[2021-11-07 17:42] LABS: Prothrombin Time 10.6 sec (9.0-12.0)
[2021-11-07] MEDS ORDERED: SODIUM CHLORIDE 0.9% 500 ML 500 ML IV ONE (17:58)
[2021-11-07] MEDS ORDERED: predniSONE 20 MG TAB PO STA (17:58)
[2021-11-07 18:00] VITALS: BP 137/64; PULSE 87
== END 2021-11-07 18:27 | disposition home or self-care (01) ==
LOC: EC 15:56
DX: G51.0 Bell's palsy (principal); F17.200 Nicotine dependence, unspecified, uncomplicated
CPT/HCPCS: 36415; 93005; 80053; 85025; 85610; 85730; 70450; 99284; J7512

== ENCOUNTER 2022-05-25 10:11 | Inpatient (IN) | payer OTHER ==
[2022-05-25] MEDS ORDERED: MORPHINE SULFATE 4 MG/ML SYRINGE IV STA (10:34)
[2022-05-25] MEDS ORDERED: SODIUM CHLORIDE 0.9% 1,000 ML IV ONE (10:34)
--- NOTE | 2022-05-25 10:36 | ED ---
Chest Pain HPI - General Chief Complaint: Chest Pain Stated Complaint: Coughing up blood,R sided rib pain Time Seen by Provider: 05/25/22 10:24 Source: patient Mode of arrival: ambulatory Limitations: no limitations - History of Present Illness Initial Comments: This patient is a 62-year-old woman who presents with complaint that she has been coughing blood this morning. Patient states she has also noticed some right-sided chest pains, that been going on for a few days. States the pain is aching, sharp with coughing. She notes it is also worse if she rests is on the ribs on the right side. She states she always has a bit of a cough as she smokes, approximately one half packs of cigarettes per day. She states that the cough change this morning. She had a little more persistent cough and then began having some bright red blood with cough. No dyspnea. No fever or chills. No leg pain or swelling. MD Complaint: chest pain -: days(s) Onset: during rest Pain Location: right chest Pain Radiation: none Severity: moderate Severity scale (1-10): 8 Quality: aching, sharp Consistency: constant Improves With: nothing Worsens With: palpation, other (Cough) Other Symptoms: cough, other (Hemoptysis) Treatments Prior to Arrival: none - Related Data Home Medications Medication Instructions Recorded Confirmed ALPRAZolam [Xanax] 1 mg PO TID PRN 05/25/22 05/25/22 OXcarbazepine [Trileptal] 300 mg PO TID 05/25/22 05/25/22 Omeprazole [PriLOSEC] 20 mg PO DAILY 05/25/22 05/25/22 QUEtiapine FUMARATE [SEROquel] 900 mg PO HS 05/25/22 05/25/22 Previous Rx's Medication Instructions Recorded Divalproex ER [Depakote ER] 500 mg PO HS 30 Days tab.er.24h 08/08/20 Allergies Allergy/AdvReac Type Severity Reaction Status Date / Time No Known Allergies Allergy Verified 05/25/22 13:38 Review of Systems ROS Statement: Those systems with pertinent positive or pertinent negative responses have been documented in the HPI. ROS Other: All systems not noted in ROS Statement are negative. Constitutional: Denies: fever, chills, weakness ENT: Denies: congestion Respiratory: Reports: as per HPI, cough, hemoptysis. Denies: dyspnea, wheezes, stridor Cardiovascular: Reports: as per HPI, chest pain. Denies: palpitations, orthopnea, edema, syncope Gastrointestinal: Denies: abdominal pain, vomiting, diarrhea Genitourinary: Denies: dysuria, hematuria Musculoskeletal: Denies: back pain Skin: Denies: rash Neurological: Denies: headache, weakness, numbness Hematological/Lymphatic: Denies: easy bleeding EKG Findings - EKG Results: EKG: interpreted by HETALD, sinus rhythm (Rate 98 bpm), normal axis, normal QRS, normal ST/T, no acute changes Past Medical History Past Medical History: GERD/Reflux Additional Past Medical History / Comment(s): CHANGE IN BOWEL MOVEMENTS., HAVING PAIN IN STOMACH ,REFLUX WITH NAUSEA AND VOMITING. History of Any Multi-Drug Resistant Organisms: None Reported Past Surgical History: Appendectomy, Bowel Resection, Breast Surgery, Section, Cholecystectomy, Hernia Repair, Tubal Ligation Additional Past Surgical History / Comment(s): HERNIATED BOWEL REQUIRED BOWEL RESECTION., BREAST IMPLANTS, Pt. states "L breast imploded and the R implant needs to be removed. Past Anesthesia/Blood Transfusion Reactions: No Reported Reaction Additional Past Anesthesia/Blood Transfusion Reaction / Comment(s): HX OF BLOOD TRANSFUSION-NO REACTION Past Psychological History: Anxiety, Bipolar, Depression Smoking Status: Current every day smoker Past Alcohol Use History: None Reported Past Drug Use History: None Reported - Past Family History Mother Family Medical History: No Reported History Father Additional Family Medical History / Comment(s): COMMITTED SUICIDE AT AGE 28 General Exam Limitations: no limitations General appearance: alert, in no apparent distress Head exam: Present: atraumatic, normocephalic Eye exam: Present: normal appearance. Absent: scleral icterus, conjunctival injection Neck exam: Present: normal inspection Respiratory exam: Present: normal lung sounds bilaterally, chest wall tenderness. Absent: respiratory distress, wheezes, rales, rhonchi, stridor, accessory muscle use, decreased breath sounds Cardiovascular Exam: Present: regular rate, normal rhythm, normal heart sounds. Absent: systolic murmur, diastolic murmur, rubs, gallop GI/Abdominal exam: Present: soft. Absent: distended, tenderness, guarding, rebound, rigid, mass Extremities exam: Present: normal inspection, normal capillary refill. Absent: pedal edema, calf tenderness Back exam: Present: normal inspection. Absent: CVA tenderness (R), CVA tenderness (L) Neurological exam: Present: alert Skin exam: Present: warm, dry, intact, normal color. Absent: rash Course Vital Signs 05/25/22 05/25/22 05/25/22 10:14 12:00 13:49 Temperature 98.3 F Pulse Rate 116 H 99 92 Pulse Rate [ Manager Grant ] Respiratory 18 16 16 Rate Blood Pressure 126/74 131/72 93/61 Blood Pressure [Left Arm] O2 Sat by Pulse 97 94 L 94 L Oximetry 05/25/22 14:49 Temperature 97.6 F Pulse Rate Pulse Rate [ 104 H Manager Grant ] Respiratory 17 Rate Blood Pressure Blood Pressure 101/57 [Left Arm] O2 Sat by Pulse 94 L Oximetry Chest Pain MDM - MDM This patient is a 62-year-old woman presenting with pleuritic right-sided chest pain as well as hemoptysis. Patient underwent chest x-ray which does not reveal definite etiology, I interpreted the x-rays not showing definite infiltrate, no congestive heart failure, no cardiomegaly. Workup reveals there is elevated d-dimer, and patient therefore sent for CT. The CT result is interpreted as showing wedge shaped infiltrate which is concerning for possible pulmonary infarct versus pneumonia. Case discussed with admitting physician and initially will treat for both possible conditions pending pulmonology workup. Should patient have further hemoptysis it may be necessary to hold anticoagulation. Was pt. sent in by a medical professional or institution? @ -[no Did you speak to anyone other than the patient for history? @ -[no Did you review nursing and triage notes? @ -[agree Were old charts reviewed? @ -[No Differential Diagnosis? @ -[Differential Chest Pain: Stable Angina, Unstable Angina, STEMI, NSTEMI Aortic Dissection, Pneumothorax, Musculoskeletal, Esophageal Spasm GERD, Cholecystitis, Pancreatitis, Zoster, this is not meant to be an all-inclusive list. EKG interpreted by me (3pts min.)? @ -[See chart X-rays interpreted by me (1pt min.)? @ -[See chart CT interpreted by me (1pt min.)? @ -[See chart U/S interpreted by me (1pt. min.)? @ -[none] What testing was considered but not performed? (CT, X-rays, U/S, labs)? Why? @ [None What meds were considered but not given? Why? @ -[none] Did you discuss the management of the patient with other professionals? @ -[Admitting physician Did you reconcile home meds? @ -[Yes Was smoking cessation discussed for >3mins.? @ -[Yes Was critical care preformed (if so, how long)? @ -[Yes, 30 inutes Were there social determinants of health that impacted care today? How? (Homelessness, low income, unemployed, alcoholism, drug addiction, transportation, low edu. Level, literacy, decrease access to med. care, shelter, rehab)? @ -[No Was there de-escalation of care discussed even if they declined? (Discuss DNR or withdrawal of care, Hospice)? @ -[No What co-morbidities impacted this encounter? (DM, HTN, Smoking, COPD, CAD, Cancer, CVA, Hep., AIDS, mental health diagnosis, sleep apnea, morbid obesity)? @ -[Smoking Was patient admitted / discharged? @ -Admitted Undiagnosed new problem with uncertain prognosis? @ -[none] Drug Therapy requiring intensive monitoring for toxicity (Heparin, Nitro, Insulin, Cardizem)? @ -[Heparin Were any procedures done? @ -[none] Diagnosis/symptom? @ -[1.Pneumonia 2.Possible pulmonary infarct Acute, or Chronic, or Acute on Chronic? @ -[Acute Uncomplicated (without systemic symptoms) or Complicated (systemic symptoms)? @ -[Uncomplicated Side effects of treatment? @ -[none] Exacerbation, Progression, or Severe Exacerbation] @ -[no] Poses a threat to life or bodily function? @ -[Yes Disposition Clinical Impression: Pneumonia Narrative: Possible pulmonary infarct Disposition: ADMITTED IP TO THIS HOSP Condition: Serious Is patient prescribed a controlled substance at d/c from ED?: No
--- NOTE | 2022-05-25 10:54 | XR ---
EXAMINATION TYPE: XR chest 2V DATE OF EXAM: 05/25/2022 10:41 AM COMPARISON: Chest radiographs from 05/17/2016 TECHNIQUE: XR chest 2V Frontal and lateral views of the chest. CLINICAL INDICATION:Female, 62 years old with history of cough with hemoptysis; FINDINGS: Lungs/Pleura: There is no evidence of pleural effusion, focal consolidation, or pneumothorax. Pulmonary vascularity: Unremarkable. Heart/mediastinum: Cardiomediastinal silhouette is unremarkable. Musculoskeletal: No acute osseous pathology. Other findings: Suspected right breast implant versus external breast prosthesis. IMPRESSION: No acute cardiopulmonary disease/process.
[2022-05-25 10:59] LABS: Basophils % (A) 0 %; Eosinophils # (A) 0.1 k/uL (0-0.7); Eosinophils % (A) 1 %; HCT 33.1 % (34.0-46.0); HGB 11.5 gm/dL (11.4-16.0); Lymphocytes % (A) 13 %; MCH 36.7 pg (25.0-35.0); MCHC 34.8 g/dL (31.0-37.0); MCV 105.5 fL (80.0-100.0); Macrocytosis Moderate; Mean Platelet Volume 7.6; Monocytes # (A) 0.3 k/uL (0-1.0); Monocytes % (A) 3 %; Neutrophils # (A) 6.2 k/uL (1.3-7.7); Neutrophils % (A) 81 %; Platelet Count 212 k/uL (150-450); RBC 3.14 m/uL (3.80-5.40); RDW 15.1 % (11.5-15.5); WBC 7.7 k/uL (3.8-10.6)
[2022-05-25 11:10] LABS: ALT 24 U/L (4-34); AST 23 U/L (14-36); African American GFR (CKD) >90 (>60 ml/min/1.73 sqM); Albumin 4.3 g/dL (3.5-5.0); Alkaline Phosphatase 70 U/L (38-126); Anion Gap 11 mmol/L; Blood Urea Nitrogen 9 mg/dL (7-17); Calcium 8.4 mg/dL (8.4-10.2); Carbon Dioxide 23 mmol/L (22-30); Chloride 98 mmol/L (98-107); Glucose 140 mg/dL (74-99); Non-African American GFR(CKD) >90 (>60 ml/min/1.73 sqM); Potassium 3.5 mmol/L (3.5-5.1); Sodium 132 mmol/L (137-145); Total Bilirubin 0.4 mg/dL (0.2-1.3); Total Protein 6.8 g/dL (6.3-8.2)
[2022-05-25] MEDS ORDERED: HYDROmorphone 1 MG/ML 1 ML SYRINGE IVP STA ×2 (11:51→13:41)
--- NOTE | 2022-05-25 12:33 | CT ---
EXAMINATION TYPE: CT chest angio for PE CT DLP: 424.7 mGycm, Automated exposure control for dose reduction was used. DATE OF EXAM: 05/25/2022 11:50 AM COMPARISON: None CLINICAL INDICATION:Female, 62 years old with history of chest pain, possible PE; Right sided chest p ain and coughing up blood. TECHNIQUE/CONTRAST: CTA scan of the thorax is performed with IV Contrast, patient injected with 55ml mL of Isovue 370, pu lmonary embolism protocol. MIP images are created and reviewed these are created on a separate works tation.. FINDINGS: Pulmonary Artery: There is no evidence for a central filling defect within the pulmonary vasculature to suggest acute pulmonary embolism. Limited evaluation of the segmental and subsegmental branches se condary to bolus timing. There may be a filling defect on series 401 image 83 which extends to the pe riphery of consolidation which may represent pulmonary infarct. The pulmonary artery is of normal siz e. Lungs/Pleura: Right lower lobe airspace opacities. No pneumothorax or pleural effusion. Airway: Large airways are patent. Heart: Heart is within normal limits for size. Vasculature: No evidence of aortic aneurysm. Retroesophageal course of the right subclavian artery. Mediastinum: No gross evidence of adenopathy. Musculoskeletal: No acute osseous abnormalities Soft Tissues: Bilateral breast implants the left breast implant appears decompressed and ruptured. Lower neck: No significant findings. Upper Abdomen: No significant findings. IMPRESSION: 1. No evidence of central pulmonary embolism. Limited evaluation of the segmental and subsegmental b ranches. Right lower lobe airspace opacities slightly peripheral and wedge-shaped could represent pul monary infarct from a subsegmental embolus versus pneumonia. 2. Ruptured left breast implant. Intact right breast implant. 3. Anatomic variant a variant right subclavian artery patent.
[2022-05-25] MEDS ORDERED: PNEUMONIA PROTOCOL UTILIZED 1 EACH MISC PO PRN (13:16)
[2022-05-25] MEDS ORDERED: AZITHROMYCIN 500 MG in SODIUM CHLORIDE 0.9% 250 ML IVPB STA (13:16)
[2022-05-25] MEDS ORDERED: ALBUTEROL NEBULIZED 2.5 MG/3 ML INHALATION PRN (13:16)
[2022-05-25] MEDS ORDERED: HEPARIN SODIUM 1,000 UN/ML (10ML VL) IV ONE (13:21)
[2022-05-25] MEDS ORDERED: HEPARIN SODIUM 1,000 UN/ML (10ML VL) IV PRN (13:21)
[2022-05-25] MEDS ORDERED: ONDANSETRON 4 MG/2 ML VIAL IVP STA (14:13)
[2022-05-25] MEDS: HEPARIN SOD,PORK IN 0.45% NACL 25,000 UNIT in 0.45% NACL 1 250ML.BAG IV SCH (14:27)
[2022-05-25 14:49] LABS: Basophils % (A) 0 %; Eosinophils % (A) 0 %; HCT 30.6 % (34.0-46.0); HGB 10.4 gm/dL (11.4-16.0); Lymphocytes # (A) 0.9 k/uL (1.0-4.8); Lymphocytes % (A) 15 %; MCH 36.7 pg (25.0-35.0); Macrocytosis Marked; Mean Platelet Volume 7.8; Monocytes # (A) 0.2 k/uL (0-1.0); Monocytes % (A) 4 %; Neutrophils # (A) 4.7 k/uL (1.3-7.7); Neutrophils % (A) 80 %; Platelet Count 181 k/uL (150-450); RBC 2.83 m/uL (3.80-5.40); RDW 15.4 % (11.5-15.5); WBC 5.9 k/uL (3.8-10.6)
[2022-05-25 15:08] LABS: INR 0.9 (<1.2); Partial Thromboplastin Time 24.8 sec (22.0-30.0); Prothrombin Time 10.1 sec (9.0-12.0)
--- NOTE | 2022-05-25 15:47 | P.HPIM ---
History of Present Illness H&P Date: 05/25/22 History of present illness; patient is 62-year-old lady with past medical significant for GERD who presented to the ER because of chest pain that has been going on for last few days. Patient stated that she has been experiencing right-sided chest pain, states was sharp in intensity, aggravated by taking deep breaths and also by laying on the right side. Patient also noticed today she was coughing up some blood as well. Denies any shortness of breath at that time. Denies any lightheadedness or dizziness. Patient denied any complaint of palpitations. Because this chest pain, patient came to the ER of [place]. Initial workup in the ER showed patient to a white count of 5.9, hemoglobin of 10.4, sodium 132, potassium 3.5, bicarb 23, BUN was 9, creatinine 0.64. CTA chest done showed no evidence of central pulmonary embolus, limited evaluation of the segmental and subsegmental branches. Right lower lobe airspace opacities wedge-shaped could represent pulmonary infarct from subsegmental embolus versus pneumonia. Patient was started on heparin because of high suspicion of pulmonar y embolism and was admitted to hospitalist service REVIEW OF SYSTEMS: CONSTITUTIONAL: No fever, no malaise, no fatigue. HEENT: No recent visual problems or hearing problems. Denied any sore throat. CARDIOVASCULAR: As mentioned in HPI PULMONARY: No shortness of breath, no cough, no hemoptysis. GASTROINTESTINAL: No diarrhea, no nausea, no vomiting, no abdominal pain. NEUROLOGICAL: No headaches, no weakness, no numbness. HEMATOLOGICAL: Denies any bleeding or petechiae. GENITOURINARY: Denies any burning micturition, frequency, or urgency. MUSCULOSKELETAL/RHEUMATOLOGICAL: Denies any joint pain, swelling, or any muscle pain. ENDOCRINE: Denies any polyuria or polydipsia. The rest of the 14-point review of systems is negative. PHYSICAL EXAMINATION: GENERAL: The patient is alert and oriented x3, not in any acute distress. Well developed, well nourished. HEENT: Pupils are round and equally reacting to light. EOMI. No scleral icterus. No conjunctival pallor. Normocephalic, atraumatic. No pharyngeal erythema. No thyromegaly. CARDIOVASCULAR: S1 and S2 present. No murmurs, rubs, or gallops. PULMONARY: Chest is clear to auscultation, no wheezing or crackles. ABDOMEN: Soft, nontender, nondistended, normoactive bowel sounds. No palpable organomegaly. MUSCULOSKELETAL: No joint swelling or deformity. EXTREMITIES: No cyanosis, clubbing, or pedal edema. NEUROLOGICAL: Gross neurological examination did not reveal any focal deficits. SKIN: No rashes. Assessment and plan Chest pain. Bacterial pneumonia. Suspicion of pulmonary embolism/pulmonary infarct Plan; Monitor vital signs Monitor CBC Follow-up on blood cultures Continue IV Rocephin and azithromycin Continue pharmacy to dose heparin Consult pulmonary Resume home meds Past Medical History Past Medical History: GERD/Reflux Additional Past Medical History / Comment(s): CHANGE IN BOWEL MOVEMENTS., HAVING PAIN IN STOMACH ,REFLUX WITH NAUSEA AND VOMITING, continuous diarrhea, bells palsy diagnosed in 2020. History of Any Multi-Drug Resistant Organisms: None Reported Past Surgical History: Appendectomy, Bowel Resection, Breast Surgery, Section, Cholecystectomy, Hernia Repair, Tubal Ligation Additional Past Surgical History / Comment(s): X3 HERNIATED BOWEL REQUIRED BOWEL RESECTION (2 1/5 ft of bowel removed)., BREAST IMPLANTS, Pt. states "L breast imploded and the R implant needs to be removed. Past Anesthesia/Blood Transfusion Reactions: Postoperative Nausea & Vomiting (PONV) Additional Past Anesthesia/Blood Transfusion Reaction / Comment(s): HX OF BLOOD TRANSFUSION-NO REACTION Past Psychological History: Anxiety, Bipolar, Depression Additional Psychological History / Comment(s): manic episodes Smoking Status: Current every day smoker Past Alcohol Use History: None Reported Additional Past Alcohol Use History / Comment(s): STARTED SMOKING AT AGE 18. SMOKES 1/2-1 PPD. Past Drug Use History: None Reported - Past Family History Mother Family Medical History: No Reported History Father Additional Family Medical History / Comment(s): COMMITTED SUICIDE AT AGE 28 Medications and Allergies Home Medications Medication Instructions Recorded Confirmed Type Divalproex ER [Depakote ER] 500 mg PO HS 30 Days tab.er.24h 08/08/20 05/25/22 Rx ALPRAZolam [Xanax] 1 mg PO TID PRN 05/25/22 05/25/22 History OXcarbazepine [Trileptal] 300 mg PO TID 05/25/22 05/25/22 History Omeprazole [PriLOSEC] 20 mg PO DAILY 05/25/22 05/25/22 History QUEtiapine FUMARATE [SEROquel] 900 mg PO HS 05/25/22 05/25/22 History Allergies Allergy/AdvReac Type Severity Reaction Status Date / Time No Known Allergies Allergy Verified 05/25/22 13:38 Physical Exam Vitals: Vital Signs Temp Pulse Pulse Resp BP BP Pulse Ox 05/25/22 14:49 97.6 F 104 H 17 101/57 94 L 05/25/22 13:49 92 16 93/61 94 L 05/25/22 12:00 99 16 131/72 94 L 05/25/22 10:14 98.3 F 116 H 18 126/74 97 Intake and Output 05/25/22 05/25/22 05/25/22 06:59 14:59 22:59 Other: Weight 82.418 kg Results CBC & Chem 7: 05/25/22 13:52 05/25/22 10:42 Labs: Abnormal Lab Results - Last 24 Hours (Table) 05/25/22 05/25/22 05/25/22 Range/Units 10:42 10:42 10:42 RBC 3.14 L (3.80-5.40) m/uL Hgb (11.4-16.0) gm/dL Hct 33.1 L (34.0-46.0) % MCV 105.5 H (80.0-100.0) fL MCH 36.7 H (25.0-35.0) pg Lymphocytes # (1.0-4.8) k/uL Macrocytosis D-Dimer 0.87 H (<0.60) mg/L FEU Sodium 132 L (137-145) mmol/L Glucose 140 H (74-99) mg/dL 05/25/22 Range/Units 13:52 RBC 2.83 L (3.80-5.40) m/uL Hgb 10.4 L (11.4-16.0) gm/dL Hct 30.6 L (34.0-46.0) % MCV 108.0 H (80.0-100.0) fL MCH 36.7 H (25.0-35.0) pg Lymphocytes # 0.9 L (1.0-4.8) k/uL Macrocytosis Marked A D-Dimer (<0.60) mg/L FEU Sodium (137-145) mmol/L Glucose (74-99) mg/dL Thrombosis Risk Factor Assmnt - Choose All That Apply Each Factor Represents 1 point: Age 41-60 years Each Risk Factor Represents 3 Points: History of DVT/PE Thrombosis Risk Factor Assessment Total Risk Factor Score: 4 Thrombosis Risk Factor Assessment Level: Moderate Risk
[2022-05-25] MEDS: IPRATROPIUM-ALBUTEROL 3 ML NEB INHALATION SCH ×2 (16:06→19:54)
[2022-05-25] MEDS: OXcarbazepine 300 MG TAB PO SCH ×2 (16:18→20:25)
[2022-05-25] MEDS: ONDANSETRON 4 MG/2 ML VIAL IVP PRN (17:59)
[2022-05-25] MEDS: HYDROmorphone 0.5 MG/0.5 ML SYRINGE IVP PRN ×2 (18:38→22:18)
[2022-05-25] MEDS: QUEtiapine 400 MG TAB PO SCH (20:25)
[2022-05-25] MEDS: DIVALPROEX ER 500 MG TAB.ER.24H PO SCH (20:25)
[2022-05-25] MEDS: QUEtiapine 100 MG TAB PO SCH (20:25)
[2022-05-25] MEDS: ALPRAZolam 1 MG TAB PO PRN (20:25)
[2022-05-26] MEDS: MORPHINE SULFATE 2 MG/ML SYRINGE IVP PRN (00:45)
[2022-05-26 04:08] LABS: Basophils % (A) 0 %; Eosinophils % (A) 1 %; HCT 30.9 % (34.0-46.0); HGB 10.5 gm/dL (11.4-16.0); Lymphocytes # (A) 0.8 k/uL (1.0-4.8); Lymphocytes % (A) 15 %; MCH 36.8 pg (25.0-35.0); MCHC 33.8 g/dL (31.0-37.0); MCV 108.6 fL (80.0-100.0); Macrocytosis Marked; Mean Platelet Volume 7.7; Monocytes # (A) 0.2 k/uL (0-1.0); Monocytes % (A) 4 %; Neutrophils # (A) 4.3 k/uL (1.3-7.7); Neutrophils % (A) 79 %; Platelet Count 213 k/uL (150-450); RBC 2.84 m/uL (3.80-5.40); RDW 15.3 % (11.5-15.5); WBC 5.5 k/uL (3.8-10.6)
[2022-05-26 04:45] LABS: Anisocytosis (M) Present; Polychromasia Present
[2022-05-26] MEDS: HEPARIN SOD,PORK IN 0.45% NACL 25,000 UNIT in 0.45% NACL 1 250ML.BAG IV SCH ×2 (06:54→22:02)
[2022-05-26] MEDS: IPRATROPIUM-ALBUTEROL 3 ML NEB INHALATION SCH ×4 (07:26→19:26)
[2022-05-26] MEDS: PANTOPRAZOLE 40 MG TABLET PO SCH (09:03)
[2022-05-26] MEDS: OXcarbazepine 300 MG TAB PO SCH ×3 (09:03→21:59)
[2022-05-26] MEDS: AZITHROMYCIN 500 MG TAB PO SCH (09:03)
[2022-05-26] MEDS: HYDROcodone/APAP 5-325MG 1 EACH TAB PO PRN ×3 (10:52→21:28)
--- NOTE | 2022-05-26 11:09 | US ---
EXAMINATION TYPE: US venous doppler duplex LE DATE OF EXAM: 05/26/2022 10:47 AM COMPARISON: NONE CLINICAL HISTORY: elevated d dimer. PE SIDE PERFORMED: Bilateral TECHNIQUE: The lower extremity deep venous system is examined utilizing real time linear array sonog paras with graded compression, doppler sonography and color-flow sonography. VESSELS IMAGED: Common Femoral Vein Deep Femoral Vein Greater Saphenous Vein * Femoral Vein Popliteal Vein Small Saphenous Vein * Proximal Calf Veins (* superficial vessels) Right Leg: Negative for DVT Grayscale, color doppler, spectral doppler imaging performed of the deep veins of the lower extremities. There is normal flow, compressibility, vascular waveforms. Left Leg: Negative for DVT Grayscale, color doppler, spectral doppler imaging performed of the deep veins of the lower extremities. There is normal flow, compressibility, vascular waveforms. IMPRESSION: No deep vein thrombosis of either lower extremity.
--- NOTE | 2022-05-26 12:15 | P.CNPUL ---
History of Present Illness Consult date: 05/26/22 Requesting physician: Kitty Blanco Reason for consult: pulmonary embolism Chief complaint: Chest pain and hemoptysis History of present illness: This is a 62-year-old female, no previous significant past medical history, patient had a sudden episode of cough and right-sided chest pain right-sided chest pain was described as pleuritic in nature, and it was associated with cough and hemoptysis. No fever no chills, patient was seen in the ER, she had a relatively normal white count, normal pro calcitonin level, CT angiogram of the chest showed no evidence of central pulmonary emboli, however it did show wedge shaped opacity in the right lower lobe, representing a pulmonary infarct, and a filling defect in that subsegmental branch patient was admitted, placed empirically on antibiotics, and she is also on heparin. Doing better, continues to have some slightly blood-tinged sputum, and continues to have some right- sided pleuritic chest pain. Some shortness of breath, and but again no fever no chills Review of Systems CONSTITUTIONAL: Negative. HEENT: Negative. CARDIOVASCULAR: Negative. PULMONARY: As noted in HPI. GASTROINTESTINAL: Negative NEUROLOGICAL: Negative. HEMATOLOGICAL: Negative. GENITOURINARY: Negative. MUSCULOSKELETAL/RHEUMATOLOGICAL: Right-sided pleuritic chest pain ENDOCRINE: Negative. Past Medical History Past Medical History: GERD/Reflux Additional Past Medical History / Comment(s): CHANGE IN BOWEL MOVEMENTS., HAVING PAIN IN STOMACH ,REFLUX WITH NAUSEA AND VOMITING. History of Any Multi-Drug Resistant Organisms: None Reported Past Surgical History: Appendectomy, Bowel Resection, Breast Surgery, Section, Cholecystectomy, Hernia Repair, Tubal Ligation Additional Past Surgical History / Comment(s): HERNIATED BOWEL REQUIRED BOWEL RESECTION., BREAST IMPLANTS, Pt. states "L breast imploded and the R implant needs to be removed. Past Anesthesia/Blood Transfusion Reactions: No Reported Reaction Additional Past Anesthesia/Blood Transfusion Reaction / Comment(s): HX OF BLOOD TRANSFUSION-NO REACTION Past Psychological History: Anxiety, Bipolar, Depression Smoking Status: Current every day smoker Past Alcohol Use History: None Reported Past Drug Use History: None Reported - Past Family History Mother Family Medical History: No Reported History Father Additional Family Medical History / Comment(s): COMMITTED SUICIDE AT AGE 28 Medications and Allergies Home Medications Medication Instructions Recorded Confirmed Type Divalproex ER [Depakote ER] 500 mg PO HS 30 Days tab.er.24h 08/08/20 05/25/22 Rx ALPRAZolam [Xanax] 1 mg PO TID PRN 05/25/22 05/25/22 History OXcarbazepine [Trileptal] 300 mg PO TID 05/25/22 05/25/22 History Omeprazole [PriLOSEC] 20 mg PO DAILY 05/25/22 05/25/22 History QUEtiapine FUMARATE [SEROquel] 900 mg PO HS 05/25/22 05/25/22 History Allergies Allergy/AdvReac Type Severity Reaction Status Date / Time No Known Allergies Allergy Verified 05/25/22 13:38 Physical Exam Vitals: Vital Signs Temp Pulse Pulse Resp BP BP Pulse Ox 05/26/22 11:09 100 05/26/22 10:58 96 05/26/22 10:55 97 101/59 96 05/26/22 09:06 105 H 19 05/26/22 08:58 101 H 16 129/82 92 L 05/26/22 07:40 100 05/26/22 07:28 100 05/26/22 04:45 98.4 F 102 H 16 116/77 94 L 05/26/22 01:25 96 05/26/22 00:00 97.5 F L 101 H 15 113/69 95 05/25/22 20:20 97.7 F 96 14 107/65 95 05/25/22 18:38 96 107/70 05/25/22 17:06 91/57 05/25/22 16:35 90 05/25/22 16:22 90 89/55 97 05/25/22 14:49 97.6 F 104 H 17 101/57 94 L 05/25/22 13:49 92 16 93/61 94 L Intake and Output 05/25/22 05/26/22 05/26/22 22:59 06:59 14:59 Intake Total 99.642 150.358 358 Output Total 440 Balance -340.358 150.358 358 Intake: Intake, IV Titration 99.642 150.358 Amount Heparin Sod,Pork in 0.45% 99.642 150.358 NaCl 25,000 unit In 0.45 % NaCl 1 250ml.bag @ 18 UNITS/KG/HR 14.835 mls/hr IV .[id number] [facility] Rx#: [id number] Oral 358 Output: Emesis 440 Other: Voiding Method Toilet Toilet Toilet # Voids 1 1 Physical Exam: Revealed a 62-year-old female in no distress however seems to be more bothered with right-sided chest pain and discomfort. Head: Atraumatic, normocephalic. HEENT:[Neck is supple.] [No neck masses.] [No thyromegaly.] [No JVD.] Chest: [Clear throughout, no crackles, no rhonchi, no wheezes.] Cardiac Exam: [Normal S1 and S2, no S3 gallop, no murmur.] Abdomen: [Soft, nontender, no megaly, no rebound, no guarding, normal bowel sounds.] Extremities: [No clubbing, no edema, no cyanosis.] Neurological Exam: [No focal neurologic deficit.] Alert oriented 3 Psychiatric: Normal mood affect and normal mental status examination. Skin: No rashes Results - Laboratory Findings CBC and BMP: 05/26/22 03:53 05/25/22 10:42 PT/INR, D-dimer PT 10.1 sec (9.0-12.0) 05/25/22 13:52 INR 0.9 (<1.2) 05/25/22 13:52 D-Dimer 0.87 mg/L FEU (<0.60) H 05/25/22 10:42 Abnormal lab findings: Abnormal Labs 05/25/22 05/25/22 05/25/22 10:42 10:42 10:42 RBC 3.14 L Hgb Hct 33.1 L MCV 105.5 H MCH 36.7 H Lymphocytes # Macrocytosis APTT D-Dimer 0.87 H Sodium 132 L Glucose 140 H 05/25/22 05/25/22 05/26/22 13:52 20:28 03:48 RBC 2.83 L Hgb 10.4 L Hct 30.6 L MCV 108.0 H MCH 36.7 H Lymphocytes # 0.9 L Macrocytosis Marked A APTT 35.1 H 50.9 H D-Dimer Sodium Glucose 05/26/22 03:53 RBC 2.84 L Hgb 10.5 L Hct 30.9 L MCV 108.6 H MCH 36.8 H Lymphocytes # 0.8 L Macrocytosis Marked A APTT D-Dimer Sodium Glucose - Diagnostic Findings CT scan - chest: image reviewed (As noted in HPI, consistent with acute pulmonary embolism and pulmonary infarct.) Assessment and Plan Assessment: Impression: Acute pulmonary embolism and pulmonary infarct Strongly doubt bacterial pneumonia considering that the patient had a relatively normal pro-considering level and the clinical history is not a clinical history of pneumonia. History of depression Recommendation: Continue heparin and monitor for any worsening of leading or hemoptysis. Consider stopping her antibiotics. In the next 24 hours. Possibly transition to eliquis in the next 24 hours. Resume home meds. We will continue to follow Time with Patient: Greater than 30
--- NOTE | 2022-05-26 13:00 | P.PN ---
Subjective Progress Note Date: 05/26/22 patient is 62-year-old lady with past medical significant for GERD who presented to the ER because of chest pain that has been going on for last few days. Patient stated that she has been experiencing right-sided chest pain, states was sharp in intensity, aggravated by taking deep breaths and also by la helen on the right side. Patient also noticed today she was coughing up some blood as well. Denies any shortness of breath at that time. Denies any lightheadedness or dizziness. Patient denied any complaint of palpitations. Because this chest pain, patient came to the ER of [place]. Initial workup in the ER showed patient to a white count of 5.9, hemoglobin of 10.4, sodium 132, potassium 3.5, bicarb 23, BUN was 9, creatinine 0.64. CTA chest done showed no evidence of central pulmonary embolus, limited evaluation of the segmental and subsegmental branches. Right lower lobe airspace opacities wedge- shaped could represent pulmonary infarct from subsegmental embolus versus pneumonia. Patient was started on heparin because of high suspicion of pulmonary embolism and was admitted to hospitalist service 05/26/22 patient seen and examined. Still having right-sided pleuritic chest cullen n. Complaining of hemoptysis REVIEW OF SYSTEMS: CONSTITUTIONAL: No fever, no malaise,. CARDIOVASCULAR: no palpitations, no syncope. PULMONARY: No shortness of breath, no cough, GASTROINTESTINAL: No diarrhea, no nausea, no vomiting, no abdominal pain. NEUROLOGICAL: No headaches, no weakness, PHYSICAL EXAMINATION: GENERAL: The patient is alert and oriented x3, not in any acute distress. Well developed, well nourished. HEENT: Pupils are round and equally reacting to light. EOMI. No scleral icterus. No conjunctival pallor. Normocephalic, atraumatic. No pharyngeal erythema. No thyromegaly. CARDIOVASCULAR: S1 and S2 present. No murmurs, rubs, or gallops. PULMONARY: Chest is clear to auscultation, no wheezing or crackles. ABDOMEN: Soft, nontender, nondistended, normoactive bowel sounds. No palpable organomegaly. MUSCULOSKELETAL: No joint swelling or deformity. EXTREMITIES: No cyanosis, clubbing, or pedal edema. NEUROLOGICAL: Gross neurological examination did not reveal any focal deficits. SKIN: No rashes. Assessment and plan Acute pulmonary embolus Pulmonary infarct Bacterial pneumonia. Plan; Monitor vital signs Monitor CBC Follow-up on blood cultures Continue IV Rocephin and azithromycin, stop antibiotics 24 hours if patient improves Continue pharmacy to dose heparin Follow-up on pulmonary recommendations Objective - Vital Signs Vital signs: Vital Signs Temp 98.4 F 05/26/22 04:45 Pulse 100 05/26/22 11:09 Resp 19 05/26/22 09:06 BP 101/59 05/26/22 10:55 Pulse Ox 95 05/26/22 12:36 FiO2 Intake & Output 05/25/22 05/26/22 05/26/22 18:59 06:59 18:59 Intake Total 250.000 358 Output Total 440 Balance -190.000 358 Weight 82.418 kg Intake: Intake, IV Titration 250.000 Amount Heparin Sod,Pork in 0.45% 250.000 NaCl 25,000 unit In 0.45 % NaCl 1 250ml.bag @ 18 UNITS/KG/HR 14.835 mls/hr IV .[id number] [facility] Rx#: [id number] Oral 358 Output: Emesis 440 Other: Voiding Method Toilet Toilet Toilet # Voids 1 1 - Labs CBC & Chem 7: 05/26/22 03:53 05/25/22 10:42 Labs: Abnormal Lab Results - Last 24 Hours (Table) 05/25/22 05/25/22 05/26/22 Range/Units 13:52 20:28 03:48 RBC 2.83 L (3.80-5.40) m/uL Hgb 10.4 L (11.4-16.0) gm/dL Hct 30.6 L (34.0-46.0) % MCV 108.0 H (80.0-100.0) fL MCH 36.7 H (25.0-35.0) pg Lymphocytes # 0.9 L (1.0-4.8) k/uL Macrocytosis Marked A APTT 35.1 H 50.9 H (22.0-30.0) sec 05/26/22 Range/Units 03:53 RBC 2.84 L (3.80-5.40) m/uL Hgb 10.5 L (11.4-16.0) gm/dL Hct 30.9 L (34.0-46.0) % MCV 108.6 H (80.0-100.0) fL MCH 36.8 H (25.0-35.0) pg Lymphocytes # 0.8 L (1.0-4.8) k/uL Macrocytosis Marked A APTT (22.0-30.0) sec Microbiology - Last 24 Hours (Table) 05/25/22 15:59 Gram Stain - Preliminary Sputum Sputum Culture - Preliminary
[2022-05-26] MEDS: ONDANSETRON 4 MG/2 ML VIAL IVP PRN (20:32)
[2022-05-26] MEDS: DIVALPROEX ER 500 MG TAB.ER.24H PO SCH (21:59)
[2022-05-26] MEDS: QUEtiapine 100 MG TAB PO SCH (21:59)
[2022-05-26] MEDS: QUEtiapine 400 MG TAB PO SCH (21:59)
[2022-05-26] MEDS: ALPRAZolam 1 MG TAB PO PRN (22:02)
[2022-05-27] MEDS: MORPHINE SULFATE 2 MG/ML SYRINGE IVP PRN ×3 (01:01→14:32)
[2022-05-27] MEDS: ONDANSETRON 4 MG/2 ML VIAL IVP PRN (04:17)
[2022-05-27] MEDS: HYDROcodone/APAP 5-325MG 1 EACH TAB PO PRN (04:17)
[2022-05-27 06:44] LABS: HGB 9.4 gm/dL (11.4-16.0); MCH 36.6 pg (25.0-35.0); MCHC 34.8 g/dL (31.0-37.0); MCV 105.1 fL (80.0-100.0); Macrocytosis Moderate; Mean Platelet Volume 7.9; Platelet Count 221 k/uL (150-450); RBC 2.57 m/uL (3.80-5.40); RDW 14.9 % (11.5-15.5); WBC 3.9 k/uL (3.8-10.6)
[2022-05-27 07:31] LABS: ALT 21 U/L (4-34); AST 26 U/L (14-36); African American GFR (CKD) >90 (>60 ml/min/1.73 sqM); Albumin 3.3 g/dL (3.5-5.0); Alkaline Phosphatase 71 U/L (38-126); Anion Gap 6 mmol/L; Blood Urea Nitrogen 3 mg/dL (7-17); Calcium 7.9 mg/dL (8.4-10.2); Carbon Dioxide 27 mmol/L (22-30); Chloride 98 mmol/L (98-107); Glucose 124 mg/dL (74-99); Non-African American GFR(CKD) >90 (>60 ml/min/1.73 sqM); Potassium 3.4 mmol/L (3.5-5.1); Sodium 131 mmol/L (137-145); Total Bilirubin 0.3 mg/dL (0.2-1.3); Total Protein 5.5 g/dL (6.3-8.2)
[2022-05-27] MEDS: OXcarbazepine 300 MG TAB PO SCH ×3 (08:18→20:52)
[2022-05-27] MEDS: AZITHROMYCIN 500 MG TAB PO SCH (08:19)
[2022-05-27] MEDS: PANTOPRAZOLE 40 MG TABLET PO SCH (08:19)
[2022-05-27] MEDS: IPRATROPIUM-ALBUTEROL 3 ML NEB INHALATION SCH ×4 (09:06→19:24)
--- NOTE | 2022-05-27 11:43 | P.PN ---
Subjective Progress Note Date: 05/27/22 This is a 62-year-old female, no previous significant past medical history, patient had a sudden episode of cough and right-sided chest pain right-sided chest pain was described as pleuritic in nature, and it was associated with cough and hemoptysis. No fever no chills, patient was seen in the ER, she had a relatively normal white count, normal pro calcitonin level, CT angiogram of the chest showed no evidence of central pulmonary emboli, however it did show wedge shaped opacity in the right lower lobe, representing a pulmonary infarct, and a filling defect in that subsegmental branch patient was admitted, placed empirically on antibiotics, and she is also on heparin. Doing better, continues to have some slightly blood-tinged sputum, and continues to have some right- sided pleuritic chest pain. Some shortness of breath, and but again no fever no chills The patient is seen today 05/27/2022 in follow-up on the selective care unit. She is currently resting comfortably in bed. Awake and alert in no acute distress. Maintaining O2 saturations in the 90s on room air. Her CT angiogram was positive for pulmonary embolism and a right lower lobe infarct. She remains on a heparin drip. Dopplers of lower extremity were negative for DVT. Blood cultures reveal no growth. Sputum culture pending. White count 3.9. Hemoglobin 9.4. Platelets 221. Sodium 131. Potassium 3.4. BUN 3. Creatinine 0.55. Glucose 124. Her influenza screen is negative. RSV screen negative. COVID-19 screen negative. She is continued on ceftriaxone. Remains on bronchodilators. Objective - Vital Signs Vital signs: Vital Signs Temp 99.3 F 05/27/22 08:11 Pulse 101 H 05/27/22 10:19 Resp 18 05/27/22 10:19 BP 109/60 05/27/22 08:11 Pulse Ox 90 L 05/27/22 08:11 FiO2 Intake & Output 05/26/22 05/27/22 05/27/22 18:59 06:59 18:59 Intake Total 358 249.458 169.785 Balance 358 249.458 169.785 Intake: Intake, IV Titration 249.458 169.785 Amount Heparin Sod,Pork in 0.45% 249.458 169.785 NaCl 25,000 unit In 0.45 % NaCl 1 250ml.bag @ 18 UNITS/KG/HR 14.835 mls/hr IV .[id number] [facility] Rx#: [id number] Oral 358 Other: Voiding Method Toilet Toilet Toilet # Voids 2 - Exam GENERAL EXAM: Alert, pleasant 62-year-old female, on room air, fairly comfortable in no apparent distress. HEAD: Normocephalic. EYES: Normal reaction of pupils, equal size. NOSE: Clear with pink turbinates. THROAT: No erythema or exudates. NECK: No masses, no JVD. CHEST: No chest wall deformity. LUNGS: Equal air entry with no crackles, wheeze, rhonchi or dullness. CVS: S1 and S2 normal with no audible murmur, regular rhythm. ABDOMEN: No hepatosplenomegaly, normal bowel sounds, no guarding or rigidity. SPINE: No scoliosis or deformity SKIN: No rashes CENTRAL NERVOUS SYSTEM: No focal deficits, tone is normal in all 4 extremities. EXTREMITIES: There is no peripheral edema. No clubbing, no cyanosis. Peripheral pulses are intact. - Labs CBC & Chem 7: 05/27/22 06:12 05/27/22 06:12 Labs: Abnormal Lab Results - Last 24 Hours (Table) 05/27/22 05/27/22 05/27/22 Range/Units 06:12 06:12 06:12 RBC 2.57 L (3.80-5.40) m/uL Hgb 9.4 L (11.4-16.0) gm/dL Hct 27.0 L (34.0-46.0) % MCV 105.1 H (80.0-100.0) fL MCH 36.6 H (25.0-35.0) pg APTT 74.6 H (22.0-30.0) sec Sodium 131 L (137-145) mmol/L Potassium 3.4 L (3.5-5.1) mmol/L BUN 3 L (7-17) mg/dL Glucose 124 H (74-99) mg/dL Calcium 7.9 L (8.4-10.2) mg/dL Total Protein 5.5 L (6.3-8.2) g/dL Albumin 3.3 L (3.5-5.0) g/dL Microbiology - Last 24 Hours (Table) 05/25/22 13:31 Blood Culture - Preliminary Blood No Growth after 24 hours 05/25/22 13:42 Blood Culture - Preliminary Blood No Growth after 24 hours 05/25/22 15:59 Gram Stain - Preliminary Sputum Sputum Culture - Preliminary Assessment and Plan Assessment: Acute pulmonary embolism and pulmonary infarct with right-sided chest discomfort/pleurisy Strongly doubt bacterial pneumonia considering that the patient had a normal pro-calcitonin level and the clinical history is not a clinical history of pneumonia. History of depression Chronic and ongoing tobacco dependence Plan: The patient was seen and evaluated To be transitioned to a Xa inhibitor Stable and on room air Cleared for discharge home from the pulmonary standpoint I have personally seen and examined the patient, performed the documentation and the assessment and plan as written. Number of minutes spent on the visit: 10.
--- NOTE | 2022-05-27 14:15 | P.PN ---
Subjective Progress Note Date: 05/27/22 patient is 62-year-old lady with past medical significant for GERD who presented to the ER because of chest pain that has been going on for last few days. Patient stated that she has been experiencing right-sided chest pain, states was sharp in intensity, aggravated by taking deep breaths and also by la helen on the right side. Patient also noticed today she was coughing up some blood as well. Denies any shortness of breath at that time. Denies any lightheadedness or dizziness. Patient denied any complaint of palpitations. Because this chest pain, patient came to the ER of [place]. Initial workup in the ER showed patient to a white count of 5.9, hemoglobin of 10.4, sodium 132, potassium 3.5, bicarb 23, BUN was 9, creatinine 0.64. CTA chest done showed no evidence of central pulmonary embolus, limited evaluation of the segmental and subsegmental branches. Right lower lobe airspace opacities wedge- shaped could represent pulmonary infarct from subsegmental embolus versus pneumonia. Patient was started on heparin because of high suspicion of pulmonary embolism and was admitted to hospitalist service 05/26/22 patient seen and examined. Still having right-sided pleuritic chest cullen n. Complaining of hemoptysis 05/27. Patient seen and examined. States chest pain is slightly improved. Denies any shortness of breath at this time REVIEW OF SYSTEMS: CONSTITUTIONAL: No fever, no malaise,. CARDIOVASCULAR: no palpitations, no syncope. PULMONARY: No shortness of breath, no cough, GASTROINTESTINAL: No diarrhea, no nausea, no vomiting, no abdominal pain. NEUROLOGICAL: No headaches, no weakness, PHYSICAL EXAMINATION: GENERAL: The patient is alert and oriented x3, not in any acute distress. Well developed, well nourished. HEENT: Pupils are round and equally reacting to light. EOMI. No scleral icterus. No conjunctival pallor. Normocephalic, atraumatic. No pharyngeal erythema. No thyromegaly. CARDIOVASCULAR: S1 and S2 present. No murmurs, rubs, or gallops. PULMONARY: Chest is clear to auscultation, no wheezing or crackles. ABDOMEN: Soft, nontender, nondistended, normoactive bowel sounds. No palpable organomegaly. MUSCULOSKELETAL: No joint swelling or deformity. EXTREMITIES: No cyanosis, clubbing, or pedal edema. NEUROLOGICAL: Gross neurological examination did not reveal any focal deficits. SKIN: No rashes. Assessment and plan Acute pulmonary embolus Pulmonary infarct Bacterial pneumonia. Plan; Monitor vital signs Monitor CBC Follow-up on blood cultures DC antibiotics Ultrasound of lower extremities negative for DVT Continue pharmacy to dose heparin Follow-up on pulmonary recommendations Objective - Vital Signs Vital signs: Vital Signs Temp 99.3 F 05/27/22 08:11 Pulse 95 05/27/22 13:03 Resp 18 05/27/22 13:03 BP 106/71 05/27/22 13:03 Pulse Ox 90 L 05/27/22 13:03 FiO2 Intake & Output 05/26/22 05/27/22 05/27/22 18:59 06:59 18:59 Intake Total 358 249.458 169.785 Balance 358 249.458 169.785 Intake: Intake, IV Titration 249.458 169.785 Amount Heparin Sod,Pork in 0.45% 249.458 169.785 NaCl 25,000 unit In 0.45 % NaCl 1 250ml.bag @ 18 UNITS/KG/HR 14.835 mls/hr IV .[id number] [facility] Rx#: [id number] Oral 358 Other: Voiding Method Toilet Toilet Toilet # Voids 2 - Labs CBC & Chem 7: 05/27/22 06:12 05/27/22 06:12 Labs: Abnormal Lab Results - Last 24 Hours (Table) 05/27/22 05/27/22 05/27/22 Range/Units 06:12 06:12 06:12 RBC 2.57 L (3.80-5.40) m/uL Hgb 9.4 L (11.4-16.0) gm/dL Hct 27.0 L (34.0-46.0) % MCV 105.1 H (80.0-100.0) fL MCH 36.6 H (25.0-35.0) pg APTT 74.6 H (22.0-30.0) sec Sodium 131 L (137-145) mmol/L Potassium 3.4 L (3.5-5.1) mmol/L BUN 3 L (7-17) mg/dL Glucose 124 H (74-99) mg/dL Calcium 7.9 L (8.4-10.2) mg/dL Total Protein 5.5 L (6.3-8.2) g/dL Albumin 3.3 L (3.5-5.0) g/dL Microbiology - Last 24 Hours (Table) 05/25/22 15:59 Gram Stain - Final Sputum Sputum Culture - Final 05/25/22 13:31 Blood Culture - Preliminary Blood No Growth after 24 hours 05/25/22 13:42 Blood Culture - Preliminary Blood No Growth after 24 hours
[2022-05-27] MEDS: HEPARIN SOD,PORK IN 0.45% NACL 25,000 UNIT in 0.45% NACL 1 250ML.BAG IV SCH (16:09)
[2022-05-27] MEDS: DIVALPROEX ER 500 MG TAB.ER.24H PO SCH (20:51)
[2022-05-27] MEDS: QUEtiapine 400 MG TAB PO SCH (20:51)
[2022-05-27] MEDS: QUEtiapine 100 MG TAB PO SCH (20:52)
[2022-05-28] MEDS: MORPHINE SULFATE 2 MG/ML SYRINGE IVP PRN ×3 (03:00→13:20)
[2022-05-28] MEDS: HYDROcodone/APAP 5-325MG 1 EACH TAB PO PRN ×2 (06:14→11:37)
[2022-05-28] MEDS: IPRATROPIUM-ALBUTEROL 3 ML NEB INHALATION SCH ×4 (08:28→20:08)
[2022-05-28 08:54] LABS: ALT 21 U/L (4-34); AST 24 U/L (14-36); African American GFR (CKD) >90 (>60 ml/min/1.73 sqM); Albumin 3.2 g/dL (3.5-5.0); Alkaline Phosphatase 65 U/L (38-126); Anion Gap 5 mmol/L; Blood Urea Nitrogen 2 mg/dL (7-17); Calcium 7.7 mg/dL (8.4-10.2); Carbon Dioxide 27 mmol/L (22-30); Chloride 95 mmol/L (98-107); Glucose 96 mg/dL (74-99); Non-African American GFR(CKD) >90 (>60 ml/min/1.73 sqM); Potassium 3.3 mmol/L (3.5-5.1); Sodium 127 mmol/L (137-145); Total Bilirubin 0.2 mg/dL (0.2-1.3); Total Protein 5.5 g/dL (6.3-8.2)
[2022-05-28 08:57] LABS: Basophils % (A) 0 %; Eosinophils % (A) 1 %; HCT 20.5 % (34.0-46.0); Lymphocytes # (A) 1.1 k/uL (1.0-4.8); Lymphocytes % (A) 29 %; MCH 36.9 pg (25.0-35.0); MCHC 35.2 g/dL (31.0-37.0); MCV 104.8 fL (80.0-100.0); Macrocytosis Moderate; Mean Platelet Volume 7.9; Monocytes # (A) 0.1 k/uL (0-1.0); Monocytes % (A) 3 %; Neutrophils # (A) 2.4 k/uL (1.3-7.7); Neutrophils % (A) 66 %; Platelet Count 316 k/uL (150-450); RBC 1.96 m/uL (3.80-5.40); RDW 14.8 % (11.5-15.5); WBC 3.7 k/uL (3.8-10.6)
[2022-05-28 08:58] LABS: HGB 7.2 gm/dL (11.4-16.0)
[2022-05-28] MEDS: PANTOPRAZOLE 40 MG TABLET PO SCH (09:00)
[2022-05-28] MEDS: OXcarbazepine 300 MG TAB PO SCH ×3 (09:00→20:36)
[2022-05-28] MEDS: HEPARIN SOD,PORK IN 0.45% NACL 25,000 UNIT in 0.45% NACL 1 250ML.BAG IV SCH (09:01)
[2022-05-28] MEDS ORDERED: Potassium Replacement Protocol 1 EACH MISC MISCELLANE PRN (10:15)
--- NOTE | 2022-05-28 10:38 | XR ---
EXAMINATION TYPE: XR chest 2V DATE OF EXAM: 05/28/2022 10:33 AM COMPARISON: Chest radiographs from 05/25/2022, CTA chest 05/25/2022 TECHNIQUE: XR chest 2V Frontal and lateral views of the chest. CLINICAL INDICATION:Female, 62 years old with history of hemoptysis; FINDINGS: Lungs/Pleura: No pneumothorax or pleural effusion. Patchy right basilar airspace opacities redemonstr ated. Pulmonary vascularity: Unremarkable. Heart/mediastinum: Cardiomediastinal silhouette is enlarged and stable. Musculoskeletal: No acute osseous pathology. Other findings: Right breast implant redemonstrated. IMPRESSION: Patchy right basilar airspace opacities redemonstrated concerning for pneumonia.
[2022-05-28] MEDS: POTASSIUM CHLORIDE ER 20 MEQ TAB.ER PO SCH ×2 (11:37→15:50)
--- NOTE | 2022-05-28 12:03 | P.PN ---
Subjective Progress Note Date: 05/28/22 This is a 62-year-old female, no previous significant past medical history, patient had a sudden episode of cough and right-sided chest pain right-sided chest pain was described as pleuritic in nature, and it was associated with cough and hemoptysis. No fever no chills, patient was seen in the ER, she had a relatively normal white count, normal pro calcitonin level, CT angiogram of the chest showed no evidence of central pulmonary emboli, however it did show wedge shaped opacity in the right lower lobe, representing a pulmonary infarct, and a filling defect in that subsegmental branch patient was admitted, placed empirically on antibiotics, and she is also on heparin. Doing better, continues to have some slightly blood-tinged sputum, and continues to have some right- sided pleuritic chest pain. Some shortness of breath, and but again no fever no chills The patient is seen today 05/27/2022 in follow-up on the selective care unit. She is currently resting comfortably in bed. Awake and alert in no acute distress. Maintaining O2 saturations in the 90s on room air. Her CT angiogram was positive for pulmonary embolism and a right lower lobe infarct. She remains on a heparin drip. Dopplers of lower extremity were negative for DVT. Blood cultures reveal no growth. Sputum culture pending. White count 3.9. Hemoglobin 9.4. Platelets 221. Sodium 131. Potassium 3.4. BUN 3. Creatinine 0.55. Glucose 124. Her influenza screen is negative. RSV screen negative. COVID-19 screen negative. She is continued on ceftriaxone. Remains on bronchodilators. The patient is seen today 05/28/2022 in follow-up on the selective care unit. She is sitting up in bed. Awake and alert in no acute distress. Maintaining O2 saturations in the 90s on room air. No right-sided chest discomfort today. She remains on heparin drip per weight base protocol. Continued on bronchodilators. Chest x-ray continues to show right basilar patchy opacities. No significant change. Blood cultures revealed no growth. Sputum culture reveals no growth. White count 3.7. Hemoglobin 7.2. MCV 104.8. Platelets 316. Sodium 127. Potassium 3.3. BUN 2. Creatinine 0.63. Objective - Vital Signs Vital signs: Vital Signs Temp 98.2 F 05/28/22 11:43 Pulse 93 05/28/22 11:43 Resp 17 05/28/22 11:43 BP 119/68 05/28/22 11:43 Pulse Ox 92 L 05/28/22 11:43 FiO2 21 05/27/22 19:24 Intake & Output 05/27/22 05/28/22 05/28/22 18:59 06:59 18:59 Intake Total 300.000 424.297 Balance 300.000 424.297 Intake: Intake, IV Titration 300.000 244.297 Amount Heparin Sod,Pork in 0.45% 250.000 244.297 NaCl 25,000 unit In 0.45 % NaCl 1 250ml.bag @ 18 UNITS/KG/HR 14.835 mls/hr IV .[id number] [facility] Rx#: [id number] cefTRIAXone 2 gm In 50 Sodium Chloride 0.9% 50 ml @ 100 mls/hr IVPB Q24H [facility] Rx#:[id number] Oral 180 Other: Voiding Method Toilet Toilet Toilet # Voids 1 1 - Exam GENERAL EXAM: Alert, pleasant 62-year-old female, sitting up at the bedside, on room air, comfortable in no apparent distress. HEAD: Normocephalic. EYES: Normal reaction of pupils, equal size. NOSE: Clear with pink turbinates. THROAT: No erythema or exudates. NECK: No masses, no JVD. CHEST: No chest wall deformity. LUNGS: Equal air entry with crackles in the right lung base. CVS: S1 and S2 normal with no audible murmur, regular rhythm. ABDOMEN: No hepatosplenomegaly, normal bowel sounds, no guarding or rigidity. SPINE: No scoliosis or deformity SKIN: No rashes CENTRAL NERVOUS SYSTEM: No focal deficits, tone is normal in all 4 extremities. EXTREMITIES: There is no peripheral edema. No clubbing, no cyanosis. Peripheral pulses are intact. - Labs CBC & Chem 7: 05/28/22 08:15 05/28/22 08:15 Labs: Abnormal Lab Results - Last 24 Hours (Table) 05/27/22 05/28/22 05/28/22 Range/Units 14:56 08:15 08:15 WBC 3.7 L (3.8-10.6) k/uL RBC 1.96 L (3.80-5.40) m/uL Hgb 7.2 L D (11.4-16.0) gm/dL Hct 20.5 L (34.0-46.0) % MCV 104.8 H (80.0-100.0) fL MCH 36.9 H (25.0-35.0) pg APTT 44.7 H (22.0-30.0) sec Sodium 127 L (137-145) mmol/L Potassium 3.3 L (3.5-5.1) mmol/L Chloride 95 L (98-107) mmol/L BUN 2 L (7-17) mg/dL Calcium 7.7 L (8.4-10.2) mg/dL Total Protein 5.5 L (6.3-8.2) g/dL Albumin 3.2 L (3.5-5.0) g/dL 05/28/22 Range/Units 08:15 WBC (3.8-10.6) k/uL RBC (3.80-5.40) m/uL Hgb (11.4-16.0) gm/dL Hct (34.0-46.0) % MCV (80.0-100.0) fL MCH (25.0-35.0) pg APTT 43.1 H (22.0-30.0) sec Sodium (137-145) mmol/L Potassium (3.5-5.1) mmol/L Chloride (98-107) mmol/L BUN (7-17) mg/dL Calcium (8.4-10.2) mg/dL Total Protein (6.3-8.2) g/dL Albumin (3.5-5.0) g/dL Microbiology - Last 24 Hours (Table) 05/25/22 13:31 Blood Culture - Preliminary Blood No Growth after 48 hours 05/25/22 13:42 Blood Culture - Preliminary Blood No Growth after 48 hours 05/25/22 15:59 Gram Stain - Final Sputum Sputum Culture - Final Assessment and Plan Assessment: Acute pulmonary embolism and pulmonary infarct with right-sided chest discomfort/pleurisy currently on a heparin drip. Strongly doubt bacterial pneumonia considering that the patient had a normal pro-calcitonin level and the clinical history is not a clinical history of pneumonia. History of depression Chronic and ongoing tobacco dependence Anemia of unclear etiology Hyponatremia Plan: The patient was seen and evaluated To be transitioned to a Xa inhibitor Stable and on room air We will continue to follow I have personally seen and examined the patient, performed the documentation and the assessment and plan as written. Number of minutes spent on the visit: 10.
--- NOTE | 2022-05-28 12:59 | P.PN ---
Subjective Progress Note Date: 05/28/22 patient is 62-year-old lady with past medical significant for GERD who presented to the ER because of chest pain that has been going on for last few days. Patient stated that she has been experiencing right-sided chest pain, states was sharp in intensity, aggravated by taking deep breaths and also by la helen on the right side. Patient also noticed today she was coughing up some blood as well. Denies any shortness of breath at that time. Denies any lightheadedness or dizziness. Patient denied any complaint of palpitations. Because this chest pain, patient came to the ER of [place]. Initial workup in the ER showed patient to a white count of 5.9, hemoglobin of 10.4, sodium 132, potassium 3.5, bicarb 23, BUN was 9, creatinine 0.64. CTA chest done showed no evidence of central pulmonary embolus, limited evaluation of the segmental and subsegmental branches. Right lower lobe airspace opacities wedge- shaped could represent pulmonary infarct from subsegmental embolus versus pneumonia. Patient was started on heparin because of high suspicion of pulmonary embolism and was admitted to hospitalist service 05/26/22 patient seen and examined. Still having right-sided pleuritic chest cullen n. Complaining of hemoptysis 05/27. Patient seen and examined. States chest pain is slightly improved. Denies any shortness of breath at this time 05/28. Patient seen and examined. Still has right-sided chest pain but states it has improved from yesterday. Hemoglobin this morning is 7.2, which is dropped from yesterday of 9.4. No obvious sign of any bleeding. REVIEW OF SYSTEMS: CONSTITUTIONAL: No fever, no malaise,. CARDIOVASCULAR: no palpitations, no syncope. PULMONARY: No shortness of breath, no cough, GASTROINTESTINAL: No diarrhea, no nausea, no vomiting, no abdominal pain. NEUROLOGICAL: No headaches, no weakness, PHYSICAL EXAMINATION: GENERAL: The patient is alert and oriented x3, not in any acute distress. Well developed, well nourished. HEENT: Pupils are round and equally reacting to light. EOMI. No scleral icterus. No conjunctival pallor. Normocephalic, atraumatic. No pharyngeal erythema. No thyromegaly. CARDIOVASCULAR: S1 and S2 present. No murmurs, rubs, or gallops. PULMONARY: Chest is clear to auscultation, no wheezing or crackles. ABDOMEN: Soft, nontender, nondistended, normoactive bowel sounds. No palpable organomegaly. MUSCULOSKELETAL: No joint swelling or deformity. EXTREMITIES: No cyanosis, clubbing, or pedal edema. NEUROLOGICAL: Gross neurological examination did not reveal any focal deficits. SKIN: No rashes. Assessment and plan Acute pulmonary embolus Pulmonary infarct Bacterial pneumonia. Acute blood loss anemia Hyponatremia Hypokalemia Plan; Monitor vital signs Monitor CBC Ordered FOBT and iron studies. Ordered chest x-ray Order CT abdomen without contrast to rule out retroperitoneal bleed Potassium replacement ordered Ultrasound of lower extremities negative for DVT Continue pharmacy to dose heparin, will transition to oral anticoagulants once hemoglobin is stable Follow-up on pulmonary recommendations Objective - Vital Signs Vital signs: Vital Signs Temp 98.2 F 05/28/22 11:43 Pulse 93 05/28/22 11:43 Resp 17 05/28/22 11:43 BP 119/68 05/28/22 11:43 Pulse Ox 92 L 05/28/22 11:43 FiO2 21 05/27/22 19:24 Intake & Output 05/27/22 05/28/22 05/28/22 18:59 06:59 18:59 Intake Total 300.000 424.297 Balance 300.000 424.297 Intake: Intake, IV Titration 300.000 244.297 Amount Heparin Sod,Pork in 0.45% 250.000 244.297 NaCl 25,000 unit In 0.45 % NaCl 1 250ml.bag @ 18 UNITS/KG/HR 14.835 mls/hr IV .[id number] [facility] Rx#: [id number] cefTRIAXone 2 gm In 50 Sodium Chloride 0.9% 50 ml @ 100 mls/hr IVPB Q24H [facility] Rx#:[id number] Oral 180 Other: Voiding Method Toilet Toilet Toilet # Voids 1 1 - Labs CBC & Chem 7: 05/28/22 08:15 05/28/22 08:15 Labs: Abnormal Lab Results - Last 24 Hours (Table) 05/27/22 05/28/22 05/28/22 Range/Units 14:56 08:15 08:15 WBC 3.7 L (3.8-10.6) k/uL RBC 1.96 L (3.80-5.40) m/uL Hgb 7.2 L D (11.4-16.0) gm/dL Hct 20.5 L (34.0-46.0) % MCV 104.8 H (80.0-100.0) fL MCH 36.9 H (25.0-35.0) pg APTT 44.7 H (22.0-30.0) sec Sodium 127 L (137-145) mmol/L Potassium 3.3 L (3.5-5.1) mmol/L Chloride 95 L (98-107) mmol/L BUN 2 L (7-17) mg/dL Calcium 7.7 L (8.4-10.2) mg/dL Total Protein 5.5 L (6.3-8.2) g/dL Albumin 3.2 L (3.5-5.0) g/dL 05/28/22 Range/Units 08:15 WBC (3.8-10.6) k/uL RBC (3.80-5.40) m/uL Hgb (11.4-16.0) gm/dL Hct (34.0-46.0) % MCV (80.0-100.0) fL MCH (25.0-35.0) pg APTT 43.1 H (22.0-30.0) sec Sodium (137-145) mmol/L Potassium (3.5-5.1) mmol/L Chloride (98-107) mmol/L BUN (7-17) mg/dL Calcium (8.4-10.2) mg/dL Total Protein (6.3-8.2) g/dL Albumin (3.5-5.0) g/dL Microbiology - Last 24 Hours (Table) 05/25/22 13:31 Blood Culture - Preliminary Blood No Growth after 48 hours 05/25/22 13:42 Blood Culture - Preliminary Blood No Growth after 48 hours 05/25/22 15:59 Gram Stain - Final Sputum Sputum Culture - Final
--- NOTE | 2022-05-28 15:36 | CT ---
EXAMINATION TYPE: CT abdomen pelvis wo con CT DLP: 691.1 mGycm, Automated exposure control for dose reduction was used. DATE OF EXAM: 05/28/2022 3:05 PM COMPARISON: CT abdomen 01/02/2018, CT chest 05/25/2022. CLINICAL INDICATION:Female, 62 years old with history of drop in hemoglobin, rule out hematoma; right rib pain, r/o hematoma TECHNIQUE: Standard CT of the abdomen and pelvis without IV or oral contrast. Lack of IV or oral co ntrast limits evaluation of solid and hollow organ viscera. Coronal and sagittal reformats were perfo rmed. FINDINGS: LOWER CHEST: Demonstration of patchy wedge-shaped airspace opacities within the right lower lobe. Tra ce bilateral pleural effusions. Mild cardiomegaly. ABDOMEN LIVER: Diffusely hypoattenuating parenchyma. GALLBLADDER AND BILE DUCTS: The gallbladder is surgically absent. No biliary ductal dilatation. PANCREAS: Unremarkable noncontrast appearance. SPLEEN: Unremarkable noncontrast appearance. ADRENAL GLANDS: Unremarkable noncontrast appearance. KIDNEYS AND URETERS: No evidence of hydronephrosis or renal calculus. Nonspecific bilateral perinephr ic fat stranding. PELVIS BLADDER: Unremarkable REPRODUCTIVE: Unremarkable. ABDOMEN & PELVIS STOMACH AND BOWEL: Stomach and duodenum are unremarkable. Fluid and gas filled colon. Anastomosis is demonstrated within the midabdomen. No pneumatosis. No evidence of bowel obstruction. PERITONEUM: No evidence of pneumoperitoneum or free fluid. VASCULATURE: Mild atherosclerotic calcifications are present throughout the abdominal aorta and its b ranches. No evidence of aortic aneurysm. MUSCULOSKELETAL: No acute osseous abnormalities LYMPH NODES: No gross evidence for lymphadenopathy. SOFT TISSUE/ABDOMINAL WALL: Unremarkable IMPRESSION: 1. No evidence for hematoma. 2. Fluid and gas-filled colon suggestive of a diarrheal state. Cannot exclude GI bleed. Correlate wi th rectal examination for blood products if there is clinical concern. 3. Hepatic steatosis. 4. Trace bilateral pleural effusions with patchy airspace opacity that somewhat wedge-shaped in the right lower lobe. This may represent pulmonary infarct versus pneumonia again.
[2022-05-28 15:38] LABS: Basophils % (A) 1 %; Eosinophils # (A) 0.1 k/uL (0-0.7); Eosinophils % (A) 2 %; HCT 28.4 % (34.0-46.0); HGB 9.3 gm/dL (11.4-16.0); Lymphocytes # (A) 0.9 k/uL (1.0-4.8); Lymphocytes % (A) 29 %; MCH 35.7 pg (25.0-35.0); MCHC 32.8 g/dL (31.0-37.0); MCV 108.9 fL (80.0-100.0); Macrocytosis Marked; Mean Platelet Volume 7.6; Monocytes # (A) 0.1 k/uL (0-1.0); Monocytes % (A) 3 %; Neutrophils # (A) 1.9 k/uL (1.3-7.7); Neutrophils % (A) 63 %; Platelet Count 289 k/uL (150-450); RBC 2.61 m/uL (3.80-5.40); RDW 15.4 % (11.5-15.5); WBC 3.1 k/uL (3.8-10.6)
[2022-05-28] MEDS: BUTALB/APAP/CAFF 50-325-40MG TAB PO PRN (18:44)
[2022-05-28] MEDS: QUEtiapine 400 MG TAB PO SCH (20:35)
[2022-05-28] MEDS: CHOLESTYRAMINE (WITH SUGAR) 4 GM PACKET PO SCH (20:35)
[2022-05-28] MEDS: QUEtiapine 100 MG TAB PO SCH (20:35)
[2022-05-28] MEDS: DIVALPROEX ER 500 MG TAB.ER.24H PO SCH (20:35)
[2022-05-28] MEDS: ALPRAZolam 1 MG TAB PO PRN (21:27)
[2022-05-29] MEDS: HEPARIN SOD,PORK IN 0.45% NACL 25,000 UNIT in 0.45% NACL 1 250ML.BAG IV SCH (00:34)
[2022-05-29] MEDS: IPRATROPIUM-ALBUTEROL 3 ML NEB INHALATION SCH ×4 (08:51→21:49)
[2022-05-29] MEDS: CHOLESTYRAMINE (WITH SUGAR) 4 GM PACKET PO SCH ×2 (09:22→16:00)
[2022-05-29] MEDS: BUTALB/APAP/CAFF 50-325-40MG TAB PO PRN (09:26)
[2022-05-29] MEDS: ONDANSETRON 4 MG/2 ML VIAL IVP PRN ×3 (09:27→22:25)
[2022-05-29] MEDS: OXcarbazepine 300 MG TAB PO SCH ×3 (09:27→20:11)
[2022-05-29] MEDS: PANTOPRAZOLE 40 MG TABLET PO SCH (09:27)
[2022-05-29 09:42] LABS: Basophils % (A) 0 %; Eosinophils # (A) 0.1 k/uL (0-0.7); Eosinophils % (A) 2 %; HCT 27.5 % (34.0-46.0); HGB 9.7 gm/dL (11.4-16.0); Lymphocytes # (A) 0.5 k/uL (1.0-4.8); Lymphocytes % (A) 13 %; MCH 36.8 pg (25.0-35.0); MCHC 35.2 g/dL (31.0-37.0); MCV 104.5 fL (80.0-100.0); Macrocytosis Moderate; Mean Platelet Volume 7.8; Monocytes # (A) 0.1 k/uL (0-1.0); Monocytes % (A) 3 %; Neutrophils # (A) 2.8 k/uL (1.3-7.7); Neutrophils % (A) 81 %; Platelet Count 311 k/uL (150-450); RBC 2.63 m/uL (3.80-5.40); RDW 14.6 % (11.5-15.5); WBC 3.4 k/uL (3.8-10.6)
[2022-05-29 10:06] LABS: African American GFR (CKD) >90 (>60 ml/min/1.73 sqM); Anion Gap 7 mmol/L; Blood Urea Nitrogen <2 mg/dL (7-17); Carbon Dioxide 24 mmol/L (22-30); Chloride 95 mmol/L (98-107); Glucose 107 mg/dL (74-99); Non-African American GFR(CKD) >90 (>60 ml/min/1.73 sqM); Potassium 3.5 mmol/L (3.5-5.1); Sodium 126 mmol/L (137-145)
[2022-05-29] MEDS: HYDROcodone/APAP 5-325MG 1 EACH TAB PO PRN (10:52)
--- NOTE | 2022-05-29 11:16 | P.PN ---
Subjective Progress Note Date: 05/29/22 This is a 62-year-old female, no previous significant past medical history, patient had a sudden episode of cough and right-sided chest pain right-sided chest pain was described as pleuritic in nature, and it was associated with cough and hemoptysis. No fever no chills, patient was seen in the ER, she had a relatively normal white count, normal pro calcitonin level, CT angiogram of the chest showed no evidence of central pulmonary emboli, however it did show wedge shaped opacity in the right lower lobe, representing a pulmonary infarct, and a filling defect in that subsegmental branch patient was admitted, placed empirically on antibiotics, and she is also on heparin. Doing better, continues to have some slightly blood-tinged sputum, and continues to have some right- sided pleuritic chest pain. Some shortness of breath, and but again no fever no chills The patient is seen today 05/27/2022 in follow-up on the selective care unit. She is currently resting comfortably in bed. Awake and alert in no acute distress. Maintaining O2 saturations in the 90s on room air. Her CT angiogram was positive for pulmonary embolism and a right lower lobe infarct. She remains on a heparin drip. Dopplers of lower extremity were negative for DVT. Blood cultures reveal no growth. Sputum culture pending. White count 3.9. Hemoglobin 9.4. Platelets 221. Sodium 131. Potassium 3.4. BUN 3. Creatinine 0.55. Glucose 124. Her influenza screen is negative. RSV screen negative. COVID-19 screen negative. She is continued on ceftriaxone. Remains on bronchodilators. The patient is seen today 05/28/2022 in follow-up on the selective care unit. She is sitting up in bed. Awake and alert in no acute distress. Maintaining O2 saturations in the 90s on room air. No right-sided chest discomfort today. She remains on heparin drip per weight base protocol. Continued on bronchodilators. Chest x-ray continues to show right basilar patchy opacities. No significant change. Blood cultures revealed no growth. Sputum culture reveals no growth. White count 3.7. Hemoglobin 7.2. MCV 104.8. Platelets 316. Sodium 127. Potassium 3.3. BUN 2. Creatinine 0.63. The patient is seen today 05/29/2022 in follow-up on the selective care unit. She is resting comfortably in bed. No worsening shortness of breath, cough or congestion. Maintaining O2 saturations in the 90s on room air. She's afebrile. Hemodynamically stable. She did have a slight In her hemoglobin and a computed tomography scan of the abdomen and pelvis was ordered. No evidence of a hematoma. There is fluid and gas filled colon suggestive of a diarrheal state. Cannot exclude GI bleed. Hepatic steatosis. Trace bilateral effusions with patchy airspace opacity and somewhat wedge-shaped in the right lower lobe. Pulmonary infarct suspected due to PE. Stool for occult blood positive. Stool culture pending. Sputum culture revealed no growth. Blood cultures revealed no growth. White count 3.4. Hemoglobin 9.7. MCV 104.5. Platelets 311. Sodium 126. Potassium 3.5. BUN less than 2. Creatinine 0.6. Glucose 107. Remains on heparin drip. Continued on bronchodilators. Objective - Vital Signs Vital signs: Vital Signs Temp 98.6 F 05/29/22 04:00 Pulse 86 05/29/22 04:00 Resp 18 05/29/22 04:00 BP 116/59 05/29/22 04:00 Pulse Ox 92 L 05/29/22 08:51 FiO2 21 05/27/22 19:24 Intake & Output 05/28/22 05/29/22 05/29/22 18:59 06:59 18:59 Intake Total 664.888 183.333 591 Output Total 100 Balance 664.888 83.333 591 Intake: Intake, IV Titration 304.888 183.333 Amount Heparin Sod,Pork in 0.45% 304.888 183.333 NaCl 25,000 unit In 0.45 % NaCl 1 250ml.bag @ 18 UNITS/KG/HR 14.835 mls/hr IV .[id number] [facility] Rx#: [id number] Oral 360 591 Output: Stool 100 Other: Voiding Method Toilet Toilet # Voids 1 1 - Exam GENERAL EXAM: Alert, pleasant 62-year-old female, resting comfortably in bed, on room air, comfortable in no apparent distress. HEAD: Normocephalic. EYES: Normal reaction of pupils, equal size. NOSE: Clear with pink turbinates. THROAT: No erythema or exudates. NECK: No masses, no JVD. CHEST: No chest wall deformity. LUNGS: Equal air entry with crackles in the right lung base. CVS: S1 and S2 normal with no audible murmur, regular rhythm. ABDOMEN: No hepatosplenomegaly, normal bowel sounds, no guarding or rigidity. SPINE: No scoliosis or deformity SKIN: No rashes CENTRAL NERVOUS SYSTEM: No focal deficits, tone is normal in all 4 extremities. EXTREMITIES: There is no peripheral edema. No clubbing, no cyanosis. Peripheral pulses are intact. - Labs CBC & Chem 7: 05/29/22 08:45 05/29/22 08:45 Labs: Abnormal Lab Results - Last 24 Hours (Table) 05/28/22 05/28/22 05/28/22 Range/Units 08:15 14:55 18:48 WBC 3.1 L (3.8-10.6) k/uL RBC 2.61 L (3.80-5.40) m/uL Hgb 9.3 L D (11.4-16.0) gm/dL Hct 28.4 L (34.0-46.0) % MCV 108.9 H (80.0-100.0) fL MCH 35.7 H (25.0-35.0) pg Lymphocytes # 0.9 L (1.0-4.8) k/uL Macrocytosis Marked A APTT 63.6 H (22.0-30.0) sec Sodium (137-145) mmol/L Chloride (98-107) mmol/L BUN (7-17) mg/dL Glucose (74-99) mg/dL Calcium (8.4-10.2) mg/dL Transferrin 170.0 L (204.0-354.0) mg/dL Stool Occult Blood (Negative) 05/28/22 05/29/22 05/29/22 Range/Units 21:41 08:45 08:45 WBC 3.4 L (3.8-10.6) k/uL RBC 2.63 L (3.80-5.40) m/uL Hgb 9.7 L (11.4-16.0) gm/dL Hct 27.5 L (34.0-46.0) % MCV 104.5 H (80.0-100.0) fL MCH 36.8 H (25.0-35.0) pg Lymphocytes # 0.5 L (1.0-4.8) k/uL Macrocytosis APTT (22.0-30.0) sec Sodium 126 L (137-145) mmol/L Chloride 95 L (98-107) mmol/L BUN <2 L (7-17) mg/dL Glucose 107 H (74-99) mg/dL Calcium 8.0 L (8.4-10.2) mg/dL Transferrin (204.0-354.0) mg/dL Stool Occult Blood Positive H (Negative) 05/29/22 Range/Units 08:45 WBC (3.8-10.6) k/uL RBC (3.80-5.40) m/uL Hgb (11.4-16.0) gm/dL Hct (34.0-46.0) % MCV (80.0-100.0) fL MCH (25.0-35.0) pg Lymphocytes # (1.0-4.8) k/uL Macrocytosis APTT 42.9 H (22.0-30.0) sec Sodium (137-145) mmol/L Chloride (98-107) mmol/L BUN (7-17) mg/dL Glucose (74-99) mg/dL Calcium (8.4-10.2) mg/dL Transferrin (204.0-354.0) mg/dL Stool Occult Blood (Negative) Microbiology - Last 24 Hours (Table) 05/28/22 21:41 Stool Culture - Preliminary Stool 05/25/22 13:42 Blood Culture - Preliminary Blood No Growth after 72 hours 05/25/22 13:31 Blood Culture - Preliminary Blood No Growth after 72 hours Assessment and Plan Assessment: Acute pulmonary embolism and pulmonary infarct with right-sided chest discomfort/pleurisy currently on a heparin drip. Strongly doubt bacterial pneumonia considering that the patient had a normal pro-calcitonin level and the clinical history is not a clinical history of pneumonia. Anemia of unclear etiology. Computed tomography scan of the abdomen and pelvis ruled out hematoma. Cannot exclude GI bleed. Stool for occult blood positive. History of depression Chronic and ongoing tobacco dependence Hyponatremia, sodium 126 Plan: The patient was seen and evaluated CT scan of the abdomen, medications and labs reviewed Anemia workup continues Remains on heparin drip for now Stable and on room air We will continue to follow I have personally seen and examined the patient, performed the documentation and the assessment and plan as written. Number of minutes spent on the visit: 10.
--- NOTE | 2022-05-29 11:59 | P.PN ---
Subjective Progress Note Date: 05/29/22 patient is 62-year-old lady with past medical significant for GERD who presented to the ER because of chest pain that has been going on for last few days. Patient stated that she has been experiencing right-sided chest pain, states was sharp in intensity, aggravated by taking deep breaths and also by la helen on the right side. Patient also noticed today she was coughing up some blood as well. Denies any shortness of breath at that time. Denies any lightheadedness or dizziness. Patient denied any complaint of palpitations. Because this chest pain, patient came to the ER of [place]. Initial workup in the ER showed patient to a white count of 5.9, hemoglobin of 10.4, sodium 132, potassium 3.5, bicarb 23, BUN was 9, creatinine 0.64. CTA chest done showed no evidence of central pulmonary embolus, limited evaluation of the segmental and subsegmental branches. Right lower lobe airspace opacities wedge- shaped could represent pulmonary infarct from subsegmental embolus versus pneumonia. Patient was started on heparin because of high suspicion of pulmonary embolism and was admitted to hospitalist service 05/26/22 patient seen and examined. Still having right-sided pleuritic chest cullen n. Complaining of hemoptysis 05/27. Patient seen and examined. States chest pain is slightly improved. Denies any shortness of breath at this time 05/28. Patient seen and examined. Still has right-sided chest pain but states it has improved from yesterday. Hemoglobin this morning is 7.2, which is dropped from yesterday of 9.4. No obvious sign of any bleeding. 05/29. Patient seen and examined. Complaining of diarrhea denies any blood in the stools. Complaining of hemoptysis REVIEW OF SYSTEMS: CONSTITUTIONAL: No fever, no malaise,. CARDIOVASCULAR: no palpitations, no syncope. PULMONARY: No shortness of breath, no cough, GASTROINTESTINAL: no nausea, no vomiting, no abdominal pain. NEUROLOGICAL: No headaches, no weakness, PHYSICAL EXAMINATION: GENERAL: The patient is alert and oriented x3, not in any acute distress. Well developed, well nourished. HEENT: Pupils are round and equally reacting to light. EOMI. No scleral icterus. No conjunctival pallor. Normocephalic, atraumatic. No pharyngeal erythema. No thyromegaly. CARDIOVASCULAR: S1 and S2 present. No murmurs, rubs, or gallops. PULMONARY: Chest is clear to auscultation, no wheezing or crackles. ABDOMEN: Soft, nontender, nondistended, normoactive bowel sounds. No palpable organomegaly. MUSCULOSKELETAL: No joint swelling or deformity. EXTREMITIES: No cyanosis, clubbing, or pedal edema. NEUROLOGICAL: Gross neurological examination did not reveal any focal deficits. SKIN: No rashes. Assessment and plan Acute pulmonary embolus Pulmonary infarct Bacterial pneumonia ruled out Acute blood loss anemia Hyponatremia Hypokalemia Plan; Monitor vital signs Monitor CBC Potassium replacement ordered Ultrasound of lower extremities negative for DVT Continue pharmacy to dose heparin, will transition to oral anticoagulants once hemoglobin is stable Follow-up on pulmonary recommendations Consult nephrology for hyponatremia Consult GI for FOBT being positive and drop in hemoglobin Objective - Vital Signs Vital signs: Vital Signs Temp 98.8 F 05/29/22 08:35 Pulse 95 05/29/22 08:35 Resp 16 05/29/22 08:35 BP 145/80 05/29/22 08:35 Pulse Ox 92 L 05/29/22 08:51 FiO2 21 05/27/22 19:24 Intake & Output 05/28/22 05/29/22 05/29/22 18:59 06:59 18:59 Intake Total 664.888 183.333 591 Output Total 100 Balance 664.888 83.333 591 Intake: Intake, IV Titration 304.888 183.333 Amount Heparin Sod,Pork in 0.45% 304.888 183.333 NaCl 25,000 unit In 0.45 % NaCl 1 250ml.bag @ 18 UNITS/KG/HR 14.835 mls/hr IV .[id number] [facility] Rx#: [id number] Oral 360 591 Output: Stool 100 Other: Voiding Method Toilet Toilet Toilet # Voids 1 1 - Labs CBC & Chem 7: 05/29/22 08:45 05/29/22 08:45 Labs: Abnormal Lab Results - Last 24 Hours (Table) 05/28/22 05/28/22 05/28/22 Range/Units 08:15 14:55 18:48 WBC 3.1 L (3.8-10.6) k/uL RBC 2.61 L (3.80-5.40) m/uL Hgb 9.3 L D (11.4-16.0) gm/dL Hct 28.4 L (34.0-46.0) % MCV 108.9 H (80.0-100.0) fL MCH 35.7 H (25.0-35.0) pg Lymphocytes # 0.9 L (1.0-4.8) k/uL Macrocytosis Marked A APTT 63.6 H (22.0-30.0) sec Sodium (137-145) mmol/L Chloride (98-107) mmol/L BUN (7-17) mg/dL Glucose (74-99) mg/dL Calcium (8.4-10.2) mg/dL Transferrin 170.0 L (204.0-354.0) mg/dL Stool Occult Blood (Negative) 05/28/22 05/29/22 05/29/22 Range/Units 21:41 08:45 08:45 WBC 3.4 L (3.8-10.6) k/uL RBC 2.63 L (3.80-5.40) m/uL Hgb 9.7 L (11.4-16.0) gm/dL Hct 27.5 L (34.0-46.0) % MCV 104.5 H (80.0-100.0) fL MCH 36.8 H (25.0-35.0) pg Lymphocytes # 0.5 L (1.0-4.8) k/uL Macrocytosis APTT (22.0-30.0) sec Sodium 126 L (137-145) mmol/L Chloride 95 L (98-107) mmol/L BUN <2 L (7-17) mg/dL Glucose 107 H (74-99) mg/dL Calcium 8.0 L (8.4-10.2) mg/dL Transferrin (204.0-354.0) mg/dL Stool Occult Blood Positive H (Negative) 05/29/22 Range/Units 08:45 WBC (3.8-10.6) k/uL RBC (3.80-5.40) m/uL Hgb (11.4-16.0) gm/dL Hct (34.0-46.0) % MCV (80.0-100.0) fL MCH (25.0-35.0) pg Lymphocytes # (1.0-4.8) k/uL Macrocytosis APTT 42.9 H (22.0-30.0) sec Sodium (137-145) mmol/L Chloride (98-107) mmol/L BUN (7-17) mg/dL Glucose (74-99) mg/dL Calcium (8.4-10.2) mg/dL Transferrin (204.0-354.0) mg/dL Stool Occult Blood (Negative) Microbiology - Last 24 Hours (Table) 05/28/22 21:41 Stool Culture - Preliminary Stool 05/25/22 13:42 Blood Culture - Preliminary Blood No Growth after 72 hours 05/25/22 13:31 Blood Culture - Preliminary Blood No Growth after 72 hours
[2022-05-29] MEDS ORDERED: PEG 3350 (236 GM/BTL) + LYTES 4,000 ML BOTTLE PO ONE (13:00)
--- NOTE | 2022-05-29 14:05 | P.GSCN ---
History of Present Illness Consult date: 05/29/22 History of present illness: CHIEF COMPLAINT: Chest pain and coughing blood HISTORY OF PRESENT ILLNESS: This is a 62-year-old female who presented with right-sided chest pain and hemoptysis. She was found to have an acute pulmonary embolism and pulmonary infarct and was placed on IV heparin drip. I'm is followed closely by pulmonary service. Patient reports that she's had episodes of vomiting blood as well as blood in her stools since Friday. Last night she had multiple dark stools. During this admission she did have a drop in her hemoglobin to 7.2 from 9.4. Computed tomography scan of the abdomen was completed showing no evidence of hematoma. Potential fluid and gas filled colon suggestive of a diarrheal state. Cannot exclude GI bleed. Patient's hemoglobin today is up to 9.7 without any transfusion. Stool for occult blood is positive. Surgical service consulted in regards to GI bleed. Patient reports her last colonoscopy was about 2018 and had recurrent colon polyps. She had EGD at that time which was negative. Patient denies any abdominal pain. Patient seen and examined with Dr. coughlin PAST MEDICAL HISTORY: See below PAST SURGICAL HISTORY: See below MEDICATIONS: See below ALLERGIES: See below SOCIAL HISTORY: No illicit drug use. REVIEW OF SYSTEMS: CONSTITUTIONAL: Denies fever or chills. HEENT: Denies blurred vision, vision changes, or eye pain. Denies hemoptysis CARDIOVASCULAR: Denies chest pain or pressure. RESPIRATORY: No shortness of breath. GASTROINTESTINAL: See HPI for pertinent findings HEMATOLOGIC: Denies bleeding disorders. GENITOURINARY: Denies any blood in urine or increased urinary frequency. SKIN: Denies pruitis. Denies rash. PHYSICAL EXAM: VITAL SIGNS: Reviewed GENERAL: Well-developed in no acute distress. HEENT: No sclera icterus. Extraocular movements grossly intact. Moist buccal mucosa. Head is atraumatic, normocephalic. No nasal drainage. ABDOMEN: Soft. Nondistended. Nontender NEUROLOGIC: Alert and oriented. Cranial nerves II through XII grossly intact. LABORATORY DATA: WBC 3.4 hgb 9.7 platelets 311 Sodium 126 potassium 3.5 creatinine 0.60 Stool for occult blood positive lactoferrin positive C. diff negative IMAGING: Computed tomography scan abdomen is stated above ASSESSMENT: 1. Acute GI bleed with black stools and possible vomiting of blood 2. Anemia 3. Acute pulmonary embolism and pulmonary infarct PLAN: -Patient scheduled for EGD and colonoscopy tomorrow with Dr. coughlin -Start GoLYTELY prep today -Start clear liquids -Nothing by mouth after midnight -Stop IV heparin -Start IV proton -Continue monitoring hemoglobin -Continue to monitor for any signs or symptoms of bleeding -Continue supportive care -Hyponatremia management per nephrology Thank you for this consultation Physician [employer] As[employer]er note has been reviewed by physician. Signing provider agrees with the documented findings, assessment, and plan of care. Past Medical History Past Medical History: GERD/Reflux Additional Past Medical History / Comment(s): CHANGE IN BOWEL MOVEMENTS., HAVING PAIN IN STOMACH ,REFLUX WITH NAUSEA AND VOMITING. History of Any Multi-Drug Resistant Organisms: None Reported Past Surgical History: Appendectomy, Bowel Resection, Breast Surgery, Section, Cholecystectomy, Hernia Repair, Tubal Ligation Additional Past Surgical History / Comment(s): HERNIATED BOWEL REQUIRED BOWEL RESECTION., BREAST IMPLANTS, Pt. states "L breast imploded and the R implant needs to be removed. Past Anesthesia/Blood Transfusion Reactions: No Reported Reaction Additional Past Anesthesia/Blood Transfusion Reaction / Comm: HX OF BLOOD TRANSFUSION-NO REACTION Past Psychological History: Anxiety, Bipolar, Depression Smoking Status: Current every day smoker Past Alcohol Use History: None Reported Past Drug Use History: None Reported - Past Family History Mother Family Medical History: No Reported History Father Additional Family Medical History / Comment(s): COMMITTED SUICIDE AT AGE 28 Medications and Allergies Home Medications Medication Instructions Recorded Confirmed Type Divalproex ER [Depakote ER] 500 mg PO HS 30 Days tab.er.24h 08/08/20 05/25/22 Rx ALPRAZolam [Xanax] 1 mg PO TID PRN 05/25/22 05/25/22 History OXcarbazepine [Trileptal] 300 mg PO TID 05/25/22 05/25/22 History Omeprazole [PriLOSEC] 20 mg PO DAILY 05/25/22 05/25/22 History QUEtiapine FUMARATE [SEROquel] 900 mg PO HS 05/25/22 05/25/22 History Allergies Allergy/AdvReac Type Severity Reaction Status Date / Time No Known Allergies Allergy Verified 05/25/22 13:38 Surgical - Exam Vital Signs Temp Pulse Resp BP Pulse Ox 98.3 F 116 H 18 126/74 97 05/25/22 10:14 05/25/22 10:14 05/25/22 10:14 05/25/22 10:14 05/25/22 10:14 Results - Labs 05/29/22 08:45 05/29/22 08:45 Abnormal Lab Results - Last 24 Hours (Table) 05/28/22 05/28/22 05/28/22 Range/Units 08:15 14:55 18:48 WBC 3.1 L (3.8-10.6) k/uL RBC 2.61 L (3.80-5.40) m/uL Hgb 9.3 L D (11.4-16.0) gm/dL Hct 28.4 L (34.0-46.0) % MCV 108.9 H (80.0-100.0) fL MCH 35.7 H (25.0-35.0) pg Lymphocytes # 0.9 L (1.0-4.8) k/uL Macrocytosis Marked A APTT 63.6 H (22.0-30.0) sec Sodium (137-145) mmol/L Chloride (98-107) mmol/L BUN (7-17) mg/dL Glucose (74-99) mg/dL Calcium (8.4-10.2) mg/dL Transferrin 170.0 L (204.0-354.0) mg/dL Stool Occult Blood (Negative) 05/28/22 05/29/22 05/29/22 Range/Units 21:41 08:45 08:45 WBC 3.4 L (3.8-10.6) k/uL RBC 2.63 L (3.80-5.40) m/uL Hgb 9.7 L (11.4-16.0) gm/dL Hct 27.5 L (34.0-46.0) % MCV 104.5 H (80.0-100.0) fL MCH 36.8 H (25.0-35.0) pg Lymphocytes # 0.5 L (1.0-4.8) k/uL Macrocytosis APTT (22.0-30.0) sec Sodium 126 L (137-145) mmol/L Chloride 95 L (98-107) mmol/L BUN <2 L (7-17) mg/dL Glucose 107 H (74-99) mg/dL Calcium 8.0 L (8.4-10.2) mg/dL Transferrin (204.0-354.0) mg/dL Stool Occult Blood Positive H (Negative) 05/29/22 Range/Units 08:45 WBC (3.8-10.6) k/uL RBC (3.80-5.40) m/uL Hgb (11.4-16.0) gm/dL Hct (34.0-46.0) % MCV (80.0-100.0) fL MCH (25.0-35.0) pg Lymphocytes # (1.0-4.8) k/uL Macrocytosis APTT 42.9 H (22.0-30.0) sec Sodium (137-145) mmol/L Chloride (98-107) mmol/L BUN (7-17) mg/dL Glucose (74-99) mg/dL Calcium (8.4-10.2) mg/dL Transferrin (204.0-354.0) mg/dL Stool Occult Blood (Negative) Microbiology - Last 24 Hours (Table) 05/28/22 21:41 Stool Culture - Preliminary Stool 05/25/22 13:42 Blood Culture - Preliminary Blood No Growth after 72 hours 05/25/22 13:31 Blood Culture - Preliminary Blood No Growth after 72 hours Diabetes panel 05/29/22 Range/Units 08:45 Sodium 126 L (137-145) mmol/L Potassium 3.5 (3.5-5.1) mmol/L Chloride 95 L (98-107) mmol/L Carbon Dioxide 24 (22-30) mmol/L BUN <2 L (7-17) mg/dL Creatinine 0.60 (0.52-1.04) mg/dL Glucose 107 H (74-99) mg/dL Calcium 8.0 L (8.4-10.2) mg/dL Calcium panel 05/29/22 Range/Units 08:45 Calcium 8.0 L (8.4-10.2) mg/dL Pituitary panel 05/29/22 Range/Units 08:45 Sodium 126 L (137-145) mmol/L Potassium 3.5 (3.5-5.1) mmol/L Chloride 95 L (98-107) mmol/L Carbon Dioxide 24 (22-30) mmol/L BUN <2 L (7-17) mg/dL Creatinine 0.60 (0.52-1.04) mg/dL Glucose 107 H (74-99) mg/dL Calcium 8.0 L (8.4-10.2) mg/dL Adrenal panel 05/29/22 Range/Units 08:45 Sodium 126 L (137-145) mmol/L Potassium 3.5 (3.5-5.1) mmol/L Chloride 95 L (98-107) mmol/L Carbon Dioxide 24 (22-30) mmol/L BUN <2 L (7-17) mg/dL Creatinine 0.60 (0.52-1.04) mg/dL Glucose 107 H (74-99) mg/dL Calcium 8.0 L (8.4-10.2) mg/dL
[2022-05-29 18:39] LABS: % Iron Saturation 22.69 (12.00-45.00)
[2022-05-29] MEDS: PANTOPRAZOLE 40 MG/10 ML VIAL IVP SCH (20:11)
[2022-05-29] MEDS: DIVALPROEX ER 500 MG TAB.ER.24H PO SCH (20:11)
[2022-05-29] MEDS: QUEtiapine 100 MG TAB PO SCH (20:11)
[2022-05-29] MEDS: QUEtiapine 400 MG TAB PO SCH (20:11)
[2022-05-29] MEDS: ALPRAZolam 1 MG TAB PO PRN (22:24)
[2022-05-30] MEDS: MORPHINE SULFATE 2 MG/ML SYRINGE IVP PRN ×2 (04:03→09:30)
[2022-05-30] MEDS: IPRATROPIUM-ALBUTEROL 3 ML NEB INHALATION SCH ×4 (07:36→21:13)
[2022-05-30 08:03] LABS: HCT 28.4 % (34.0-46.0); HGB 10.1 gm/dL (11.4-16.0); MCH 37.4 pg (25.0-35.0); MCHC 35.6 g/dL (31.0-37.0); MCV 105.1 fL (80.0-100.0); Macrocytosis Moderate; Mean Platelet Volume 7.2; Platelet Count 325 k/uL (150-450); RBC 2.71 m/uL (3.80-5.40); RDW 14.8 % (11.5-15.5); WBC 3.7 k/uL (3.8-10.6)
[2022-05-30 08:16] LABS: African American GFR (CKD) >90 (>60 ml/min/1.73 sqM); Anion Gap 9 mmol/L; Blood Urea Nitrogen 2 mg/dL (7-17); Calcium 8.4 mg/dL (8.4-10.2); Carbon Dioxide 25 mmol/L (22-30); Chloride 96 mmol/L (98-107); Glucose 107 mg/dL (74-99); Non-African American GFR(CKD) >90 (>60 ml/min/1.73 sqM); Potassium 3.1 mmol/L (3.5-5.1); Sodium 130 mmol/L (137-145)
[2022-05-30] MEDS: OXcarbazepine 300 MG TAB PO SCH ×3 (08:35→20:15)
[2022-05-30] MEDS: PANTOPRAZOLE 40 MG/10 ML VIAL IVP SCH ×2 (08:40→20:15)
--- NOTE | 2022-05-30 11:14 | P.PN ---
Subjective Progress Note Date: 05/30/22 This is a 62-year-old female, no previous significant past medical history, patient had a sudden episode of cough and right-sided chest pain right-sided chest pain was described as pleuritic in nature, and it was associated with cough and hemoptysis. No fever no chills, patient was seen in the ER, she had a relatively normal white count, normal pro calcitonin level, CT angiogram of the chest showed no evidence of central pulmonary emboli, however it did show wedge shaped opacity in the right lower lobe, representing a pulmonary infarct, and a filling defect in that subsegmental branch patient was admitted, placed empirically on antibiotics, and she is also on heparin. Doing better, continues to have some slightly blood-tinged sputum, and continues to have some right- sided pleuritic chest pain. Some shortness of breath, and but again no fever no chills The patient is seen today 05/27/2022 in follow-up on the selective care unit. She is currently resting comfortably in bed. Awake and alert in no acute distress. Maintaining O2 saturations in the 90s on room air. Her CT angiogram was positive for pulmonary embolism and a right lower lobe infarct. She remains on a heparin drip. Dopplers of lower extremity were negative for DVT. Blood cultures reveal no growth. Sputum culture pending. White count 3.9. Hemoglobin 9.4. Platelets 221. Sodium 131. Potassium 3.4. BUN 3. Creatinine 0.55. Glucose 124. Her influenza screen is negative. RSV screen negative. COVID-19 screen negative. She is continued on ceftriaxone. Remains on bronchodilators. The patient is seen today 05/28/2022 in follow-up on the selective care unit. She is sitting up in bed. Awake and alert in no acute distress. Maintaining O2 saturations in the 90s on room air. No right-sided chest discomfort today. She remains on heparin drip per weight base protocol. Continued on bronchodilators. Chest x-ray continues to show right basilar patchy opacities. No significant change. Blood cultures revealed no growth. Sputum culture reveals no growth. White count 3.7. Hemoglobin 7.2. MCV 104.8. Platelets 316. Sodium 127. Potassium 3.3. BUN 2. Creatinine 0.63. The patient is seen today 05/29/2022 in follow-up on the selective care unit. She is resting comfortably in bed. No worsening shortness of breath, cough or congestion. Maintaining O2 saturations in the 90s on room air. She's afebrile. Hemodynamically stable. She did have a slight In her hemoglobin and a computed tomography scan of the abdomen and pelvis was ordered. No evidence of a hematoma. There is fluid and gas filled colon suggestive of a diarrheal state. Cannot exclude GI bleed. Hepatic steatosis. Trace bilateral effusions with patchy airspace opacity and somewhat wedge-shaped in the right lower lobe. Pulmonary infarct suspected due to PE. Stool for occult blood positive. Stool culture pending. Sputum culture revealed no growth. Blood cultures revealed no growth. White count 3.4. Hemoglobin 9.7. MCV 104.5. Platelets 311. Sodium 126. Potassium 3.5. BUN less than 2. Creatinine 0.6. Glucose 107. Remains on heparin drip. Continued on bronchodilators. The patient is seen today 05/30/2022 in follow-up in the selective care unit. She is sitting up in bed. Awake and alert in no acute distress. Maintaining O2 saturations in the 90s on room air. No IV fluids. Stool for occult blood positive. Stool lactoferrin positive. C. diff negative. She is scheduled for EGD/colonoscopy today. Blood cultures revealed no growth. Sputum culture revealed no growth. White count 3.7. Hemoglobin 10.1. Platelets 325. Sodium 130. Potassium 3.1. BUN 2. Creatinine 0.57. Glucose 107. She is continued on DuoNeb inhalations. Heparin drip currently on hold. Objective - Vital Signs Vital signs: Vital Signs Temp 99.4 F 05/30/22 08:00 Pulse 100 05/30/22 08:00 Resp 20 05/30/22 08:00 BP 131/75 05/30/22 08:00 Pulse Ox 92 L 05/30/22 08:00 FiO2 21 05/27/22 19:24 Intake & Output 05/29/22 05/30/22 05/30/22 18:59 06:59 18:59 Intake Total 591 1620 Balance 591 1620 Intake: Oral 591 1620 Other: Voiding Method Toilet Toilet # Voids 2 - Exam GENERAL EXAM: Alert, 62-year-old female, resting in bed, on room air, comfortable in no apparent distress. HEAD: Normocephalic. EYES: Normal reaction of pupils, equal size. NOSE: Clear with pink turbinates. THROAT: No erythema or exudates. NECK: No masses, no JVD. CHEST: No chest wall deformity. LUNGS: Equal air entry with crackles in the right lung base. CVS: S1 and S2 normal with no audible murmur, regular rhythm. ABDOMEN: No hepatosplenomegaly, normal bowel sounds, no guarding or rigidity. SPINE: No scoliosis or deformity SKIN: No rashes CENTRAL NERVOUS SYSTEM: No focal deficits, tone is normal in all 4 extremities. EXTREMITIES: There is no peripheral edema. No clubbing, no cyanosis. Peripheral pulses are intact. - Labs CBC & Chem 7: 05/30/22 07:46 05/30/22 07:46 Labs: Abnormal Lab Results - Last 24 Hours (Table) 05/28/22 05/30/22 05/30/22 Range/Units 21:41 07:46 07:46 WBC 3.7 L (3.8-10.6) k/uL RBC 2.71 L (3.80-5.40) m/uL Hgb 10.1 L (11.4-16.0) gm/dL Hct 28.4 L (34.0-46.0) % MCV 105.1 H (80.0-100.0) fL MCH 37.4 H (25.0-35.0) pg Sodium 130 L (137-145) mmol/L Potassium 3.1 L (3.5-5.1) mmol/L Chloride 96 L (98-107) mmol/L BUN 2 L (7-17) mg/dL Glucose 107 H (74-99) mg/dL Stool Lactoferrin POSITIVE A (NEGATIVE) Microbiology - Last 24 Hours (Table) 05/25/22 13:31 Blood Culture - Preliminary Blood No Growth after 96 hours 05/25/22 13:42 Blood Culture - Preliminary Blood No Growth after 96 hours Assessment and Plan Assessment: Acute pulmonary embolism and pulmonary infarct with right-sided chest discomfor t/pleuris. Strongly doubt bacterial pneumonia considering that the patient had a normal pro-calcitonin level and the clinical history is not a clinical history of pneumonia. Anemia of unclear etiology. Computed tomography scan of the abdomen and pelvis ruled out hematoma. Stool for occult blood positive. Stool positive for lactoferrin. C. diff negative. EGD/colonoscopy today 05/30/2022 History of depression Chronic and ongoing tobacco dependence Hyponatremia, sodium 130 Plan: The patient was seen and evaluated Medications and labs reviewed Plan is for EGD/colonoscopy Heparin drip and hold Stable and on room air We will continue to follow I have personally seen and examined the patient, performed the documentation and the assessment and plan as written. Number of minutes spent on the visit: 10.
[2022-05-30] MEDS ORDERED: LIDOCAINE 2% INJ 20 MG/ML (2 ML VIAL) ONE (11:50)
[2022-05-30] MEDS ORDERED: IV FLUID CONTINUATION 1,000 ML IV ONE (11:50)
[2022-05-30] MEDS ORDERED: PROPOFOL 10 MG/ML 20 ML VIAL IV ONE (11:50)
--- NOTE | 2022-05-30 12:20 | P.OP ---
Date of Procedure: 05/30/22 Preoperative Diagnosis: GI bleed Postoperative Diagnosis: Antral gastritis Sigmoid colon polyp Internal and external hemorrhoids Procedure(s) Performed: EGD Colonoscopy Anesthesia: MAC Surgeon: Darron Bonilla Pathology: other (Antral gastritisSigmoid colon polyp) Condition: stable Disposition: PACU Description of Procedure: Patient's placed on the endoscopy table in the lateral position. She received IV sedation. The gastroscope placed oropharynx passed in the esophagus and stomach. Scope then placed through the pylorus. First second portion duodenum appeared normal. There is no blood seen the duodenum. Scope summer back the antrum and a biopsies performed. The scope was unretroflexed and remainder the stomach appeared normal. There is no blood seen stomach. The GE junction was at 40 cm. The distal esophagus appeared normal. The proximal esophagus appeared normal. Scope withdrawn for patient. Next digital rectal exam was performed. This revealed some hemorrhoids. Flexible colonoscope was then placed patient anus passed throughout the colon. The ileocecal valve could not be seen well due to poor colon prep. There is a large amount liquid stool the colon. Scope was withdrawn. The visualized ascending colon appeared normal. The transverse colon appeared normal. The descending colon appeared normal. The; there was a polyp seen was removed with the snare. [place] back the rectum and this appeared normal. Scope withdrawn for patient. There is no evidence of any active GI bleed. Presumed patient may have had bleeding from hemorrhoids.
--- NOTE | 2022-05-30 12:32 | P.NPCON ---
History of Present Illness - Reason for Consult hyponatremia - History of Present Illness Patient is a 62-year-old female with history of gastroesophageal reflux disease admitted to the hospital with complaints of chest pain. CTA showed no evidence of central PE however she was noticed to have wedge-shaped peripheral opacities suggestive of pulmonary infarct. Ultrasound was negative for DVT Sodium was 132 on admission and dropped down to 126 yesterday. Today it is back up to 1:30. Patient received IV fluids initially on admission and subsequently these were discontinued. Patient reports history of hyponatremia previously in October 2021. Patient is maintained on Depakote No complaints of nausea vomiting or diarrhea. Patient is complaining of severe headache which started this morning. Blood pressure has not been low. Review of Systems As per HPI Past Medical History Past Medical History: GERD/Reflux Additional Past Medical History / Comment(s): CHANGE IN BOWEL MOVEMENTS., HAVING PAIN IN STOMACH ,REFLUX WITH NAUSEA AND VOMITING. History of Any Multi-Drug Resistant Organisms: None Reported Past Surgical History: Appendectomy, Bowel Resection, Breast Surgery, Section, Cholecystectomy, Hernia Repair, Tubal Ligation Additional Past Surgical History / Comment(s): HERNIATED BOWEL REQUIRED BOWEL RESECTION., BREAST IMPLANTS, Pt. states "L breast imploded and the R implant needs to be removed. Past Anesthesia/Blood Transfusion Reactions: No Reported Reaction Additional Past Anesthesia/Blood Transfusion Reaction / Comment(s): HX OF BLOOD TRANSFUSION-NO REACTION Past Psychological History: Anxiety, Bipolar, Depression Smoking Status: Current every day smoker Past Alcohol Use History: None Reported Past Drug Use History: None Reported - Past Family History Mother Family Medical History: No Reported History Father Additional Family Medical History / Comment(s): COMMITTED SUICIDE AT AGE 28 Medications and Allergies Home Medications Medication Instructions Recorded Confirmed Type Divalproex ER [Depakote ER] 500 mg PO HS 30 Days tab.er.24h 08/08/20 05/25/22 Rx ALPRAZolam [Xanax] 1 mg PO TID PRN 05/25/22 05/25/22 History OXcarbazepine [Trileptal] 300 mg PO TID 05/25/22 05/25/22 History Omeprazole [PriLOSEC] 20 mg PO DAILY 05/25/22 05/25/22 History QUEtiapine FUMARATE [SEROquel] 900 mg PO HS 05/25/22 05/25/22 History Allergies Allergy/AdvReac Type Severity Reaction Status Date / Time No Known Allergies Allergy Verified 05/25/22 13:38 Physical Exam Vitals: Vital Signs Temp Pulse Pulse Resp BP Pulse Ox 05/30/22 11:40 98.3 F 90 20 114/70 99 05/30/22 08:00 99.4 F 100 20 131/75 92 L 05/30/22 04:24 98.1 F 96 15 125/77 91 L 05/30/22 04:00 98.1 F 96 15 125/77 91 L 05/30/22 00:00 98 F 91 16 127/79 93 L 05/29/22 20:00 98.0 F 89 16 153/81 98 05/29/22 16:30 90 16 149/89 94 L 05/29/22 15:42 88 16 05/29/22 15:32 87 16 05/29/22 14:15 18 Intake and Output 05/29/22 05/30/22 05/30/22 22:59 06:59 14:59 Intake Total 1620 450 Balance 1620 450 Intake: IV 450 Oral 1620 Other: Voiding Method Toilet Toilet # Voids 2 Awake, comfortable, no acute distress Examination of the heart S1 and S2 Examination of the lungs bilateral breath sounds are heard Abdomen is soft nontender Examination lower extremity shows no edema line 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 Hyponatremia currently euvolemic with possible component of SIADH, improved this morning. Patient received IV fluids on initial admission which was subsequently discontinued. She is maintained on Depakote which can predispose to SIADH. Patient will be maintained on fluid restriction and urine osmolality and random urine sodium will be sent out. 2. Hypokalemia we will replace 3. Anemia associated with blood loss as stool for occult blood was positive 4. Acute PE Plan: Check urine for sodium and urine osmolality Maintain fluid restriction Replace potassium Repeat labs in a.m. Check TSH Thank you for the consultation. We will continue to follow the patient with you during her hospitalization
[2022-05-30] MEDS ORDERED: POTASSIUM CHLORIDE ER 20 MEQ TAB.ER PO STA (12:33)
[2022-05-30] MEDS: HYDROcodone/APAP 5-325MG 1 EACH TAB PO PRN ×2 (12:33→18:59)
[2022-05-30] MEDS: CHOLESTYRAMINE (WITH SUGAR) 4 GM PACKET PO SCH ×2 (12:36→17:27)
[2022-05-30] MEDS: BUTALB/APAP/CAFF 50-325-40MG TAB PO PRN ×3 (13:41→20:14)
[2022-05-30] MEDS: ALPRAZolam 1 MG TAB PO PRN ×2 (16:39→23:37)
[2022-05-30] MEDS: DIVALPROEX ER 500 MG TAB.ER.24H PO SCH (20:14)
[2022-05-30] MEDS: QUEtiapine 100 MG TAB PO SCH (20:15)
[2022-05-30] MEDS: QUEtiapine 400 MG TAB PO SCH (20:15)
[2022-05-31] MEDS: BUTALB/APAP/CAFF 50-325-40MG TAB PO PRN (04:47)
[2022-05-31] MEDS: IPRATROPIUM-ALBUTEROL 3 ML NEB INHALATION SCH ×4 (07:14→20:37)
[2022-05-31] MEDS: PANTOPRAZOLE 40 MG/10 ML VIAL IVP SCH ×2 (08:37→22:39)
[2022-05-31] MEDS: OXcarbazepine 300 MG TAB PO SCH ×3 (08:38→21:46)
[2022-05-31] MEDS: CHOLESTYRAMINE (WITH SUGAR) 4 GM PACKET PO SCH ×2 (08:41→17:12)
[2022-05-31 10:21] LABS: African American GFR (CKD) >90 (>60 ml/min/1.73 sqM); Anion Gap 8 mmol/L; Blood Urea Nitrogen 3 mg/dL (7-17); Calcium 8.1 mg/dL (8.4-10.2); Carbon Dioxide 24 mmol/L (22-30); Chloride 97 mmol/L (98-107); Glucose 115 mg/dL (74-99); Non-African American GFR(CKD) >90 (>60 ml/min/1.73 sqM); Sodium 129 mmol/L (137-145)
[2022-05-31 10:36] LABS: Potassium 3.4 mmol/L (3.5-5.1)
[2022-05-31] MEDS: HYDROcodone/APAP 5-325MG 1 EACH TAB PO PRN (11:00)
[2022-05-31] MEDS ORDERED: HEPARIN SODIUM 1,000 UN/ML (10ML VL) IV PRN (12:47)
[2022-05-31] MEDS ORDERED: HEPARIN SODIUM 1,000 UN/ML (10ML VL) IV ONE (12:47)
--- NOTE | 2022-05-31 13:15 | P.PN ---
Subjective Progress Note Date: 05/31/22 CHIEF COMPLAINT: GI bleed HISTORY OF PRESENT ILLNESS: Patient is status post EGD and colonoscopy revealing Antral gastritis, Sigmoid colon polyp, Internal and external hemorrhoids. No signs of active bleeding. Presumed patient had bleeding from hemorrhoids. Patient has had no further bleeding. Tolerating diet. Denies any pain. Hemoglobin 10.1. Patient seen and examined with Dr. Bonilla PHYSICAL EXAM: VITAL SIGNS: Reviewed. GENERAL: Well-developed in no acute distress. HEENT: No sclera icterus. Extraocular movements grossly intact. Moist buccal mucosa. Head is atraumatic, normocephalic. ABDOMEN: Soft. Nondistended. Nontender. NEUROLOGIC: Alert and oriented. Cranial nerves II through XII grossly intact. ASSESSMENT: 1. Acute GI bleed with presumed bleeding from hemorrhoids. Status post EGD and colonoscopy revealing Antral gastritis, Sigmoid colon polyp, Internal and external hemorrhoids 2. PE and pulmonary infarct PLAN: -Patient can resume anticoagulation from surgical standpoint -Continue to monitor hemoglobin -Continue to monitor for any signs or symptoms of bleeding -Continue PPI Physician Supervisor Pipeline Maintenance note has been reviewed by physician. Signing provider agrees with the documented findings, assessment, and plan of care. Objective - Vital Signs Vital signs: Vital Signs Temp 97.8 F 05/31/22 11:01 Pulse 81 05/31/22 11:01 Resp 18 05/31/22 11:01 BP 125/76 05/31/22 11:01 Pulse Ox 96 05/31/22 11:01 FiO2 21 05/27/22 19:24 Intake & Output 05/30/22 05/31/22 05/31/22 18:59 06:59 18:59 Intake Total 690 255 0 Output Total 350 100 Balance 690 -95 -100 Intake: IV 450 Oral 240 255 0 Output: Urine 150 Stool 200 100 Other: Voiding Method Toilet # Voids 1 1 - Labs CBC & Chem 7: 05/30/22 07:46 05/31/22 09:48 Labs: Abnormal Lab Results - Last 24 Hours (Table) 05/31/22 Range/Units 09:48 Sodium 129 L (137-145) mmol/L Potassium 3.4 L (3.5-5.1) mmol/L Chloride 97 L (98-107) mmol/L BUN 3 L (7-17) mg/dL Glucose 115 H (74-99) mg/dL Calcium 8.1 L (8.4-10.2) mg/dL Microbiology - Last 24 Hours (Table) 05/28/22 21:41 Stool Culture - Preliminary Stool Apple albicans 05/25/22 13:42 Blood Culture - Preliminary Blood No Growth after 120 hours 05/25/22 13:31 Blood Culture - Preliminary Blood No Growth after 120 hours
--- NOTE | 2022-05-31 13:58 | P.PN ---
Subjective Progress Note Date: 05/31/22 This is a 62-year-old female, no previous significant past medical history, patient had a sudden episode of cough and right-sided chest pain right-sided chest pain was described as pleuritic in nature, and it was associated with cough and hemoptysis. No fever no chills, patient was seen in the ER, she had a relatively normal white count, normal pro calcitonin level, CT angiogram of the chest showed no evidence of central pulmonary emboli, however it did show wedge shaped opacity in the right lower lobe, representing a pulmonary infarct, and a filling defect in that subsegmental branch patient was admitted, placed empirically on antibiotics, and she is also on heparin. Doing better, continues to have some slightly blood-tinged sputum, and continues to have some right- sided pleuritic chest pain. Some shortness of breath, and but again no fever no chills The patient is seen today 05/27/2022 in follow-up on the selective care unit. She is currently resting comfortably in bed. Awake and alert in no acute distress. Maintaining O2 saturations in the 90s on room air. Her CT angiogram was positive for pulmonary embolism and a right lower lobe infarct. She remains on a heparin drip. Dopplers of lower extremity were negative for DVT. Blood cultures reveal no growth. Sputum culture pending. White count 3.9. Hemoglobin 9.4. Platelets 221. Sodium 131. Potassium 3.4. BUN 3. Creatinine 0.55. Glucose 124. Her influenza screen is negative. RSV screen negative. COVID-19 screen negative. She is continued on ceftriaxone. Remains on bronchodilators. The patient is seen today 05/28/2022 in follow-up on the selective care unit. She is sitting up in bed. Awake and alert in no acute distress. Maintaining O2 saturations in the 90s on room air. No right-sided chest discomfort today. She remains on heparin drip per weight base protocol. Continued on bronchodilators. Chest x-ray continues to show right basilar patchy opacities. No significant change. Blood cultures revealed no growth. Sputum culture reveals no growth. White count 3.7. Hemoglobin 7.2. MCV 104.8. Platelets 316. Sodium 127. Potassium 3.3. BUN 2. Creatinine 0.63. The patient is seen today 05/29/2022 in follow-up on the selective care unit. She is resting comfortably in bed. No worsening shortness of breath, cough or congestion. Maintaining O2 saturations in the 90s on room air. She's afebrile. Hemodynamically stable. She did have a slight In her hemoglobin and a computed tomography scan of the abdomen and pelvis was ordered. No evidence of a hematoma. There is fluid and gas filled colon suggestive of a diarrheal state. Cannot exclude GI bleed. Hepatic steatosis. Trace bilateral effusions with patchy airspace opacity and somewhat wedge-shaped in the right lower lobe. Pulmonary infarct suspected due to PE. Stool for occult blood positive. Stool culture pending. Sputum culture revealed no growth. Blood cultures revealed no growth. White count 3.4. Hemoglobin 9.7. MCV 104.5. Platelets 311. Sodium 126. Potassium 3.5. BUN less than 2. Creatinine 0.6. Glucose 107. Remains on heparin drip. Continued on bronchodilators. The patient is seen today 05/30/2022 in follow-up in the selective care unit. She is sitting up in bed. Awake and alert in no acute distress. Maintaining O2 saturations in the 90s on room air. No IV fluids. Stool for occult blood positive. Stool lactoferrin positive. C. diff negative. She is scheduled for EGD/colonoscopy today. Blood cultures revealed no growth. Sputum culture revealed no growth. White count 3.7. Hemoglobin 10.1. Platelets 325. Sodium 130. Potassium 3.1. BUN 2. Creatinine 0.57. Glucose 107. She is continued on DuoNeb inhalations. Heparin drip currently on hold. The patient is seen today 05/31/2022 in follow-up on the selective care unit. She is currently resting comfortably in bed. Awake and alert in no acute distress. He denies any worsening shortness of breath, cough or congestion. No significant right-sided chest discomfort. Maintaining O2 saturation in the 90s on room air. She's afebrile. Hemodynamically stable. She did undergo EGD and colonoscopy yesterday and was found to have antral gastritis, sigmoid colon polyp, internal and external hemorrhoids. No active bleeding. We'll culture was positive for Apple albicans. Sputum culture revealed no growth. Blood cultures revealed no growth. Sodium 129. Potassium 3.4. BUN 3. Creatinine 0.59. Urine osmolality 199. Nephrology is been consulted regarding the hyponatremia and possible component of SIADH. She is continued on fluid restrictions. She was initiated back on her heparin drip. Continue to monitor hemoglobin. Objective - Vital Signs Vital signs: Vital Signs Temp 97.8 F 05/31/22 11:01 Pulse 81 05/31/22 11:01 Resp 18 05/31/22 11:01 BP 125/76 05/31/22 11:01 Pulse Ox 96 05/31/22 11:01 FiO2 21 05/27/22 19:24 Intake & Output 05/30/22 05/31/22 05/31/22 18:59 06:59 18:59 Intake Total 690 255 0 Output Total 350 100 Balance 690 -95 -100 Intake: IV 450 Oral 240 255 0 Output: Urine 150 Stool 200 100 Other: Voiding Method Toilet # Voids 1 1 - Exam GENERAL EXAM: Alert, 62-year-old female, on room air, comfortable in no apparent distress. HEAD: Normocephalic. EYES: Normal reaction of pupils, equal size. NOSE: Clear with pink turbinates. THROAT: No erythema or exudates. NECK: No masses, no JVD. CHEST: No chest wall deformity. LUNGS: Equal air entry with no wheezes rhonchi or crackles. CVS: S1 and S2 normal with no audible murmur, regular rhythm. ABDOMEN: No hepatosplenomegaly, normal bowel sounds, no guarding or rigidity. SPINE: No scoliosis or deformity SKIN: No rashes CENTRAL NERVOUS SYSTEM: No focal deficits, tone is normal in all 4 extremities. EXTREMITIES: There is no peripheral edema. No clubbing, no cyanosis. Peripheral pulses are intact. - Labs CBC & Chem 7: 05/30/22 07:46 05/31/22 09:48 Labs: Abnormal Lab Results - Last 24 Hours (Table) 05/31/22 Range/Units 09:48 Sodium 129 L (137-145) mmol/L Potassium 3.4 L (3.5-5.1) mmol/L Chloride 97 L (98-107) mmol/L BUN 3 L (7-17) mg/dL Glucose 115 H (74-99) mg/dL Calcium 8.1 L (8.4-10.2) mg/dL Microbiology - Last 24 Hours (Table) 05/28/22 21:41 Stool Culture - Preliminary Stool Apple albicans 05/25/22 13:42 Blood Culture - Preliminary Blood No Growth after 120 hours 05/25/22 13:31 Blood Culture - Preliminary Blood No Growth after 120 hours Assessment and Plan Assessment: Acute pulmonary embolism and pulmonary infarct with right-sided chest discomfort/pleurisy, improved. Remains on heparin drip. Strongly doubt bacterial pneumonia considering that the patient had a normal pro-calcitonin level and the clinical history is not a clinical history of pneumonia. Anemia of unclear etiology. EGD/colonoscopy done 05/30/2022 revealed no active bleeding History of depression Chronic and ongoing tobacco dependence Hyponatremia, sodium 129 Plan: The patient was seen and evaluated Stable and on room air Medications and labs reviewed EGD/colonoscopy reviewed, no active bleeding Resumed on Heparin drip Continue monitor hemoglobin To be initiated on Xa inhibitors once stable We will continue to follow I have personally seen and examined the patient, performed the documentation and the assessment and plan as written. Number of minutes spent on the visit: 10.
[2022-05-31] MEDS: HEPARIN SOD,PORK IN 0.45% NACL 25,000 UNIT in 0.45% NACL 1 250ML.BAG IV SCH (14:00)
[2022-05-31] MEDS: ONDANSETRON 4 MG/2 ML VIAL IVP PRN (15:54)
[2022-05-31] MEDS ORDERED: POTASSIUM CHLORIDE ER 20 MEQ TAB.ER PO STA (16:04)
[2022-05-31] MEDS: MAGNESIUM SULFATE-D5W PMX 1 GM in DEXTROSE/WATER 1 100ML.BAG IVPB SCH (17:26)
[2022-05-31] MEDS ORDERED: TOLVAPTAN 15 MG 1/2 TABLET PO ONE (17:33)
--- NOTE | 2022-05-31 17:33 | P.PN ---
Subjective Patient is seen for f/u for hyponatremia. Urine osmolality 199 BP is not low. Admits to fluid restriction previously for treatment of hyponatremia. Sodium is 129 today. No complaints today. Objective - Vital Signs Vital signs: Vital Signs Temp 97.9 F 05/31/22 15:56 Pulse 83 05/31/22 15:56 Resp 18 05/31/22 15:56 BP 151/80 05/31/22 15:56 Pulse Ox 97 05/31/22 15:56 FiO2 21 05/27/22 19:24 Intake & Output 05/30/22 05/31/22 05/31/22 18:59 06:59 18:59 Intake Total 690 255 0 Output Total 350 200 Balance 690 -95 -200 Intake: IV 450 Oral 240 255 0 Output: Urine 150 Stool 200 200 Other: Voiding Method Toilet # Voids 1 1 - Exam Patient is comfortable. Comfortable. alert and orientedx3 Lungs are clear CVS: S1 and S2 Abdomen is soft, non tender. Extremities show no edema SUPERVISOR LOOPING exam is grossly intact. - Labs CBC & Chem 7: 05/30/22 07:46 05/31/22 09:48 Labs: Abnormal Lab Results - Last 24 Hours (Table) 05/31/22 05/31/22 Range/Units 09:48 09:48 Sodium 129 L (137-145) mmol/L Potassium 3.4 L (3.5-5.1) mmol/L Chloride 97 L (98-107) mmol/L BUN 3 L (7-17) mg/dL Glucose 115 H (74-99) mg/dL Calcium 8.1 L (8.4-10.2) mg/dL Magnesium 1.3 L (1.6-2.3) mg/dL Microbiology - Last 24 Hours (Table) 05/25/22 13:31 Blood Culture - Final Blood No Growth after 144 hours 05/25/22 13:42 Blood Culture - Final Blood No Growth after 144 hours 05/28/22 21:41 Stool Culture - Preliminary Stool Apple albicans Assessment and Plan Assessment: 1. Hyponatremia currently euvolemic with possible component of SIADH and secondary to low urinary osmoles and poor protein intake. Patient received IV fluids on initial admission which was subsequently discontinued. She is maintained on Depakote which can predispose to SIADH. Patient will be maintained on fluid restriction. Urine osmolality is on the lower side. 2. Hypokalemia, we will replace 3. Anemia associated with blood loss as stool for occult blood was positive 4. Acute PE Plan: Conitnue fluid restriction Add samsca Recheck labs in am.
--- NOTE | 2022-05-31 17:47 | P.PN ---
Subjective Progress Note Date: 05/31/22 62-year-old lady with past medical significant for GERD who presented to the ER because of chest pain that has been going on for last few days. Patient stated that she has been experiencing right-sided chest pain, states was sharp in intensity, aggravated by taking deep breaths and also by laying on the right side. Patient also noticed today she was coughing up some blood as well. Denies any shortness of breath at that time. Denies any lightheadedness or dizziness. Patient denied any complaint of palpitations. Because this chest pain, patient came to the ER of [facility]. Initial workup in the ER showed patient to a white count of 5.9, hemoglobin of 10.4, sodium 132, potassium 3.5, bicarb 23, BUN was 9, creatinine 0.64. CTA chest done showed no evidence of central pulmonary embolus, limited evaluation of the segmental and subsegmental branches. Right lower lobe airspace opacities wedge-shaped could represent pulmonary infarct from subsegmental embolus versus pneumonia. Patient was started on heparin because of high suspicion of pulmonary embolism and was admitted to hospitalist service 05/31/2022 Patient is seen and evaluated in follow-up on the selective care unit. Awake and alert in no acute distress. He denies any worsening shortness of breath, cough or congestion. No significant right-sided chest discomfort. Maintaining O2 saturation in the 90s on room air. She's afebrile. Hemodynamically stable. -- She did undergo EGD and colonoscopy yesterday and was found to have antral gastritis, sigmoid colon polyp, internal and external hemorrhoids. No active bleeding. Stool culture was positive for Apple albicans. Sputum culture revealed no growth. Blood cultures revealed no growth. Sodium 129. Potassium 3.4. BUN 3. Creatinine 0.59. Urine osmolality 199. -- Nephrology is been consulted regarding the hyponatremia and possible component of SIADH. She is continued on fluid restrictions. -- She was initiated back on her heparin drip. Continue to monitor hemoglobin. Objective - Vital Signs Vital signs: Vital Signs Temp 97.9 F 05/31/22 08:00 Pulse 81 05/31/22 08:00 Resp 18 05/31/22 08:00 BP 108/66 05/31/22 08:00 Pulse Ox 93 L 05/31/22 08:00 FiO2 21 05/27/22 19:24 Intake & Output 05/30/22 05/31/22 05/31/22 18:59 06:59 18:59 Intake Total 690 255 0 Output Total 350 100 Balance 690 -95 -100 Intake: IV 450 Oral 240 255 0 Output: Urine 150 Stool 200 100 Other: Voiding Method Toilet # Voids 1 1 - Exam GENERAL: The patient is alert and oriented x3, not in any acute distress. Well developed, well nourished. HEENT: Pupils are round and equally reacting to light. EOMI. No scleral icterus. No conjunctival pallor. Normocephalic, atraumatic. No pharyngeal erythema. No thyromegaly. CARDIOVASCULAR: S1 and S2 present. No murmurs, rubs, or gallops. PULMONARY: Chest is clear to auscultation, no wheezing or crackles. ABDOMEN: Soft, nontender, nondistended, normoactive bowel sounds. No palpable organomegaly. MUSCULOSKELETAL: No joint swelling or deformity. EXTREMITIES: No cyanosis, clubbing, or pedal edema. NEUROLOGICAL: Gross neurological examination did not reveal any focal deficits. SKIN: No rashes. - Labs CBC & Chem 7: 05/30/22 07:46 05/31/22 09:48 Labs: Abnormal Lab Results - Last 24 Hours (Table) 05/31/22 Range/Units 09:48 Sodium 129 L (137-145) mmol/L Potassium 3.4 L (3.5-5.1) mmol/L Chloride 97 L (98-107) mmol/L BUN 3 L (7-17) mg/dL Glucose 115 H (74-99) mg/dL Calcium 8.1 L (8.4-10.2) mg/dL Microbiology - Last 24 Hours (Table) 05/28/22 21:41 Stool Culture - Preliminary Stool Apple albicans 05/25/22 13:42 Blood Culture - Preliminary Blood No Growth after 120 hours 05/25/22 13:31 Blood Culture - Preliminary Blood No Growth after 120 hours Assessment and Plan Assessment: Assessment and plan Acute pulmonary embolus Pulmonary infarct Bacterial pneumonia ruled out Acute blood loss anemia Hyponatremia Hypokalemia Plan; Monitor vital signs Monitor CBC Potassium replacement ordered Ultrasound of lower extremities negative for DVT Continue pharmacy to dose heparin, will transition to oral anticoagulants once hemoglobin is stable Follow-up on pulmonary recommendations Consult nephrology for hyponatremia Consult GI for FOBT being positive and drop in hemoglobin
[2022-05-31] MEDS: ALPRAZolam 1 MG TAB PO PRN (21:27)
[2022-05-31] MEDS: QUEtiapine 100 MG TAB PO SCH (21:47)
[2022-05-31] MEDS: QUEtiapine 400 MG TAB PO SCH (21:47)
[2022-05-31] MEDS: DIVALPROEX ER 500 MG TAB.ER.24H PO SCH (21:48)
[2022-05-31 23:13] VITALS: TEMP 98.1
[2022-06-01] MEDS: ONDANSETRON 4 MG/2 ML VIAL IVP PRN (01:01)
[2022-06-01] MEDS: HEPARIN SOD,PORK IN 0.45% NACL 25,000 UNIT in 0.45% NACL 1 250ML.BAG IV SCH (06:46)
[2022-06-01 07:14] LABS: HCT 29.6 % (34.0-46.0); HGB 10.3 gm/dL (11.4-16.0); MCH 36.1 pg (25.0-35.0); MCHC 34.8 g/dL (31.0-37.0); MCV 103.8 fL (80.0-100.0); Macrocytosis Moderate; Mean Platelet Volume 7.6; Platelet Count 272 k/uL (150-450); Poikilocytosis Slight; RBC 2.85 m/uL (3.80-5.40); WBC 5.3 k/uL (3.8-10.6)
[2022-06-01] MEDS: IPRATROPIUM-ALBUTEROL 3 ML NEB INHALATION SCH ×3 (07:28→14:56)
[2022-06-01] MEDS: PANTOPRAZOLE 40 MG/10 ML VIAL IVP SCH (07:45)
[2022-06-01] MEDS: CHOLESTYRAMINE (WITH SUGAR) 4 GM PACKET PO SCH (07:46)
[2022-06-01] MEDS: OXcarbazepine 300 MG TAB PO SCH (07:46)
[2022-06-01 07:48] VITALS: BP 107/64; RESP 18
[2022-06-01 08:19] LABS: African American GFR (CKD) >90 (>60 ml/min/1.73 sqM); Anion Gap 6 mmol/L; Blood Urea Nitrogen <2 mg/dL (7-17); Calcium 8.5 mg/dL (8.4-10.2); Carbon Dioxide 28 mmol/L (22-30); Chloride 104 mmol/L (98-107); Glucose 112 mg/dL (74-99); Non-African American GFR(CKD) >90 (>60 ml/min/1.73 sqM); Potassium 3.5 mmol/L (3.5-5.1); Sodium 138 mmol/L (137-145)
[2022-06-01 10:28] VITALS: BMI 32.1
--- NOTE | 2022-06-01 10:35 | P.PN ---
Subjective Patient is seen for f/u for hyponatremia. Urine osmolality 199 BP is not low. Admits to fluid restriction previously for treatment of hyponatremia. Status post Samsca yesterday with sodium up to 138 today. No complaints today. Objective - Vital Signs Vital signs: Vital Signs Temp 98.1 F 06/01/22 07:47 Pulse 93 06/01/22 07:47 Resp 18 06/01/22 07:47 BP 107/64 06/01/22 07:47 Pulse Ox 92 L 06/01/22 07:47 FiO2 21 05/27/22 19:24 Intake & Output 05/31/22 06/01/22 06/01/22 18:59 06:59 18:59 Intake Total 444 250.000 240 Output Total 200 Balance 244 250.000 240 Weight 82.418 kg Intake: Intake, IV Titration 250.000 Amount Heparin Sod,Pork in 0.45% 250.000 NaCl 25,000 unit In 0.45 % NaCl 1 250ml.bag @ 18 UNITS/KG/HR 14.835 mls/hr IV .[id number] [facility] Rx#: [id number] Oral 444 240 Output: Stool 200 Other: # Voids 1 - Exam Patient is comfortable. Comfortable. alert and orientedx3 Abdomen is soft, non tender. Extremities show no edema [employer]MENT [employer] exam is grossly intact. - Labs CBC & Chem 7: 06/01/22 06:49 06/01/22 06:49 Labs: Abnormal Lab Results - Last 24 Hours (Table) 05/31/22 05/31/22 05/31/22 Range/Units 09:48 09:48 20:17 RBC (3.80-5.40) m/uL Hgb (11.4-16.0) gm/dL Hct (34.0-46.0) % MCV (80.0-100.0) fL MCH (25.0-35.0) pg APTT 33.4 H (22.0-30.0) sec Sodium 129 L (137-145) mmol/L Potassium 3.4 L (3.5-5.1) mmol/L Chloride 97 L (98-107) mmol/L BUN 3 L (7-17) mg/dL Glucose 115 H (74-99) mg/dL Calcium 8.1 L (8.4-10.2) mg/dL Magnesium 1.3 L (1.6-2.3) mg/dL 06/01/22 06/01/22 06/01/22 Range/Units 03:29 06:49 06:49 RBC 2.85 L (3.80-5.40) m/uL Hgb 10.3 L (11.4-16.0) gm/dL Hct 29.6 L (34.0-46.0) % MCV 103.8 H (80.0-100.0) fL MCH 36.1 H (25.0-35.0) pg APTT 81.8 H (22.0-30.0) sec Sodium (137-145) mmol/L Potassium (3.5-5.1) mmol/L Chloride (98-107) mmol/L BUN <2 L (7-17) mg/dL Glucose 112 H (74-99) mg/dL Calcium (8.4-10.2) mg/dL Magnesium (1.6-2.3) mg/dL 06/01/22 Range/Units 09:22 RBC (3.80-5.40) m/uL Hgb (11.4-16.0) gm/dL Hct (34.0-46.0) % MCV (80.0-100.0) fL MCH (25.0-35.0) pg APTT 54.5 H (22.0-30.0) sec Sodium (137-145) mmol/L Potassium (3.5-5.1) mmol/L Chloride (98-107) mmol/L BUN (7-17) mg/dL Glucose (74-99) mg/dL Calcium (8.4-10.2) mg/dL Magnesium (1.6-2.3) mg/dL Microbiology - Last 24 Hours (Table) 05/28/22 21:41 Stool Culture - Final Stool Apple albicans 05/25/22 13:31 Blood Culture - Final Blood No Growth after 144 hours 05/25/22 13:42 Blood Culture - Final Blood No Growth after 144 hours Assessment and Plan Assessment: 1. Hyponatremia currently euvolemic with possible component of SIADH and secondary to low urinary osmoles and poor protein intake. Patient received IV fluids on initial admission which was subsequently discontinued. She is maintained on Depakote which can predispose to SIADH. Patient will be maintained on fluid restriction. Urine osmolality is on the lower side. Status post Samsca with improvement in serum sodium 2. Hypokalemia, we will replace 3. Anemia associated with blood loss as stool for occult blood was positive 4. Acute PE Plan: Liberalize fluid restriction for 1-2 days Recheck labs in am.
[2022-06-01 11:41] VITALS: PULSE 80
--- NOTE | 2022-06-01 12:17 | P.PN ---
Subjective Progress Note Date: 06/01/22 This is a 62-year-old female, no previous significant past medical history, patient had a sudden episode of cough and right-sided chest pain right-sided chest pain was described as pleuritic in nature, and it was associated with cough and hemoptysis. No fever no chills, patient was seen in the ER, she had a relatively normal white count, normal pro calcitonin level, CT angiogram of the chest showed no evidence of central pulmonary emboli, however it did show wedge shaped opacity in the right lower lobe, representing a pulmonary infarct, and a filling defect in that subsegmental branch patient was admitted, placed empirically on antibiotics, and she is also on heparin. Doing better, continues to have some slightly blood-tinged sputum, and continues to have some right- sided pleuritic chest pain. Some shortness of breath, and but again no fever no chills The patient is seen today 05/27/2022 in follow-up on the selective care unit. She is currently resting comfortably in bed. Awake and alert in no acute distress. Maintaining O2 saturations in the 90s on room air. Her CT angiogram was positive for pulmonary embolism and a right lower lobe infarct. She remains on a heparin drip. Dopplers of lower extremity were negative for DVT. Blood cultures reveal no growth. Sputum culture pending. White count 3.9. Hemoglobin 9.4. Platelets 221. Sodium 131. Potassium 3.4. BUN 3. Creatinine 0.55. Glucose 124. Her influenza screen is negative. RSV screen negative. COVID-19 screen negative. She is continued on ceftriaxone. Remains on bronchodilators. The patient is seen today 05/28/2022 in follow-up on the selective care unit. She is sitting up in bed. Awake and alert in no acute distress. Maintaining O2 saturations in the 90s on room air. No right-sided chest discomfort today. She remains on heparin drip per weight base protocol. Continued on bronchodilators. Chest x-ray continues to show right basilar patchy opacities. No significant change. Blood cultures revealed no growth. Sputum culture reveals no growth. White count 3.7. Hemoglobin 7.2. MCV 104.8. Platelets 316. Sodium 127. Potassium 3.3. BUN 2. Creatinine 0.63. The patient is seen today 05/29/2022 in follow-up on the selective care unit. She is resting comfortably in bed. No worsening shortness of breath, cough or congestion. Maintaining O2 saturations in the 90s on room air. She's afebrile. Hemodynamically stable. She did have a slight In her hemoglobin and a computed tomography scan of the abdomen and pelvis was ordered. No evidence of a hematoma. There is fluid and gas filled colon suggestive of a diarrheal state. Cannot exclude GI bleed. Hepatic steatosis. Trace bilateral effusions with patchy airspace opacity and somewhat wedge-shaped in the right lower lobe. Pulmonary infarct suspected due to PE. Stool for occult blood positive. Stool culture pending. Sputum culture revealed no growth. Blood cultures revealed no growth. White count 3.4. Hemoglobin 9.7. MCV 104.5. Platelets 311. Sodium 126. Potassium 3.5. BUN less than 2. Creatinine 0.6. Glucose 107. Remains on heparin drip. Continued on bronchodilators. The patient is seen today 05/30/2022 in follow-up in the selective care unit. She is sitting up in bed. Awake and alert in no acute distress. Maintaining O2 saturations in the 90s on room air. No IV fluids. Stool for occult blood positive. Stool lactoferrin positive. C. diff negative. She is scheduled for EGD/colonoscopy today. Blood cultures revealed no growth. Sputum culture revealed no growth. White count 3.7. Hemoglobin 10.1. Platelets 325. Sodium 130. Potassium 3.1. BUN 2. Creatinine 0.57. Glucose 107. She is continued on DuoNeb inhalations. Heparin drip currently on hold. The patient is seen today 05/31/2022 in follow-up on the selective care unit. She is currently resting comfortably in bed. Awake and alert in no acute distress. He denies any worsening shortness of breath, cough or congestion. No significant right-sided chest discomfort. Maintaining O2 saturation in the 90s on room air. She's afebrile. Hemodynamically stable. She did undergo EGD and colonoscopy yesterday and was found to have antral gastritis, sigmoid colon polyp, internal and external hemorrhoids. No active bleeding. We'll culture was positive for Apple albicans. Sputum culture revealed no growth. Blood cultures revealed no growth. Sodium 129. Potassium 3.4. BUN 3. Creatinine 0.59. Urine osmolality 199. Nephrology is been consulted regarding the hyponatremia and possible component of SIADH. She is continued on fluid restrictions. She was initiated back on her heparin drip. Continue to monitor hemoglobin. The patient is seen today 06/01/2022 in follow-up on the selective care unit. She is awake and alert in no acute distress. She is maintaining O2 saturations in the 90s on room air. She's afebrile. Hemodynamically stable. Blood cultures revealed no growth. Sputum culture revealed no growth. Stool culture positive for Apple. Biopsies from the EGD/colonoscopy were negative for malignancy. The patient did receive Samsca yesterday per nephrology. Current sodium 138. White count 5.3. Hemoglobin 10.3. Platelets 272. Potassium 3.5. Bicarb 28. BUN 2. Creatinine 0.65. Glucose 112. She remains on a heparin drip per medicine. Objective - Vital Signs Vital signs: Vital Signs Temp 98.1 F 06/01/22 07:47 Pulse 80 06/01/22 11:40 Resp 18 06/01/22 07:47 BP 107/64 06/01/22 07:47 Pulse Ox 92 L 06/01/22 07:47 FiO2 05/27/22 19:24 Intake & Output 05/31/22 06/01/22 06/01/22 18:59 06:59 18:59 Intake Total 444 250.000 240 Output Total 200 Balance 244 250.000 240 Weight 82.418 kg Intake: Intake, IV Titration 250.000 Amount Heparin Sod,Pork in 0.45% 250.000 NaCl 25,000 unit In 0.45 % NaCl 1 250ml.bag @ 18 UNITS/KG/HR 14.835 mls/hr IV .[id number] [facility] Rx#: [id number] Oral 444 240 Output: Stool 200 Other: # Voids 1 - Exam GENERAL EXAM: Alert, 62-year-old female, resting in bed, on room air, comfortable in no apparent distress. HEAD: Normocephalic. EYES: Normal reaction of pupils, equal size. NOSE: Clear with pink turbinates. THROAT: No erythema or exudates. NECK: No masses, no JVD. CHEST: No chest wall deformity. LUNGS: Equal air entry with no wheezes rhonchi or crackles. CVS: S1 and S2 normal with no audible murmur, regular rhythm. ABDOMEN: No hepatosplenomegaly, normal bowel sounds, no guarding or rigidity. SPINE: No scoliosis or deformity SKIN: No rashes CENTRAL NERVOUS SYSTEM: No focal deficits, tone is normal in all 4 extremities. EXTREMITIES: There is no peripheral edema. No clubbing, no cyanosis. Peripheral pulses are intact. - Labs CBC & Chem 7: 06/01/22 06:49 06/01/22 06:49 Labs: Abnormal Lab Results - Last 24 Hours (Table) 05/31/22 05/31/22 06/01/22 Range/Units 09:48 20:17 03:29 RBC (3.80-5.40) m/uL Hgb (11.4-16.0) gm/dL Hct (34.0-46.0) % MCV (80.0-100.0) fL MCH (25.0-35.0) pg APTT 33.4 H 81.8 H (22.0-30.0) sec BUN (7-17) mg/dL Glucose (74-99) mg/dL Magnesium 1.3 L (1.6-2.3) mg/dL 06/01/22 06/01/22 06/01/22 Range/Units 06:49 06:49 09:22 RBC 2.85 L (3.80-5.40) m/uL Hgb 10.3 L (11.4-16.0) gm/dL Hct 29.6 L (34.0-46.0) % MCV 103.8 H (80.0-100.0) fL MCH 36.1 H (25.0-35.0) pg APTT 54.5 H (22.0-30.0) sec BUN <2 L (7-17) mg/dL Glucose 112 H (74-99) mg/dL Magnesium (1.6-2.3) mg/dL Microbiology - Last 24 Hours (Table) 05/28/22 21:41 Stool Culture - Final Stool Apple albicans 05/25/22 13:31 Blood Culture - Final Blood No Growth after 144 hours 05/25/22 13:42 Blood Culture - Final Blood No Growth after 144 hours Assessment and Plan Assessment: Acute pulmonary embolism and pulmonary infarct with right-sided chest discomfort/pleurisy, improved. Remains on heparin drip. Strongly doubt bacterial pneumonia considering that the patient had a normal pro-calcitonin level and the clinical history is not a clinical history of pneumonia. Anemia of unclear etiology. EGD/colonoscopy done 05/30/2022 revealed no active bleeding and biopsy results negative for malignancy, current hemoglobin 10.3 History of depression Chronic and ongoing tobacco dependence Hyponatremia, sodium 138, did receive Samsca yesterday Plan: The patient was seen and evaluated Medications and labs reviewed No active bleeding, hemoglobin stable at 10.3 To be initiated on Xa inhibitors Stable and on room air I have personally seen and examined the patient, performed the documentation and the assessment and plan as written. Number of minutes spent on the visit: 10.
[2022-06-01] MEDS ORDERED: MAGNESIUM SULFATE-D5W PMX 1 GM in DEXTROSE/WATER 1 100ML.BAG IVPB ONE (12:43)
[2022-06-01] MEDS ORDERED: APIXABAN 5 MG TAB PO SCH (12:45)
--- NOTE | 2022-06-01 14:46 | P.PN ---
Subjective Progress Note Date: 06/01/22 CHIEF COMPLAINT: Gastrointestinal bleed HISTORY OF PRESENT ILLNESS: The patient is a 62-year-old female gastrointestinal bleed and anemia. On admission, hemoglobin went down 11.5-7.2. She is status post upper and lower endoscopy with features of gastritis and internal/external hemorrhoids. No further bleeding. She is tolerating diet. ROS: Had acute blood loss anemia, 11.5-7.2 during hospitalization. She is on chronic anticoagulation PHYSICAL EXAM: VITAL SIGNS: Reviewed CONSTITUTIONAL: Well developed and in no acute distress. EYES: Conjuctivae without sclera icterus. Extraocular movements grossly intact. HEAD, EARS, NOSE, THROAT: Moist buccal mucosa. Head is atraumatic, normocephalic. Hears conversational speech. No nasal drainage. RESPIRATORY: Non-labored respirations and equal bilateral excursions. CARDIOVASCULAR: Palpable 2+ radial pulses. ABDOMEN: No peritonitis. MUSCULOSKELETAL: No gross deformity of the lower extremities noted. No clubbing. No cyanosis. SKIN: Good skin turgor. Well perfused. NEUROLOGIC: Cranial nerves II through XII grossly intact. No focal or l ateralizing signs. PSYCH: Appropriate affect. Alert and oriented to person, place and time. CLINICAL LABS: Reviewed. Hemoglobin is stable 10.1-10.3. ASSESSMENT: 1. Gastrointestinal bleed 2. Acute blood loss anemia 3. Chronic anticoagulation PLAN: 1. Stable for discharge from a surgical standpoint. Objective - Vital Signs Vital signs: Vital Signs Temp 98.1 F 06/01/22 07:47 Pulse 80 06/01/22 11:40 Resp 18 06/01/22 07:47 BP 107/64 06/01/22 07:47 Pulse Ox 92 L 06/01/22 07:47 FiO2 21 05/27/22 19:24 Intake & Output 05/31/22 06/01/22 06/01/22 18:59 06:59 18:59 Intake Total 444 250.000 240 Output Total 200 Balance 244 250.000 240 Weight 82.418 kg Intake: Intake, IV Titration 250.000 Amount Heparin Sod,Pork in 0.45% 250.000 NaCl 25,000 unit In 0.45 % NaCl 1 250ml.bag @ 18 UNITS/KG/HR 14.835 mls/hr IV .[id number] [facility] Rx#: [id number] Oral 444 240 Output: Stool 200 Other: # Voids 1 - Labs CBC & Chem 7: 06/01/22 06:49 06/01/22 06:49 Labs: Abnormal Lab Results - Last 24 Hours (Table) 05/31/22 05/31/22 06/01/22 Range/Units 09:48 20:17 03:29 RBC (3.80-5.40) m/uL Hgb (11.4-16.0) gm/dL Hct (34.0-46.0) % MCV (80.0-100.0) fL MCH (25.0-35.0) pg APTT 33.4 H 81.8 H (22.0-30.0) sec BUN (7-17) mg/dL Glucose (74-99) mg/dL Magnesium 1.3 L (1.6-2.3) mg/dL 06/01/22 06/01/22 06/01/22 Range/Units 06:49 06:49 09:22 RBC 2.85 L (3.80-5.40) m/uL Hgb 10.3 L (11.4-16.0) gm/dL Hct 29.6 L (34.0-46.0) % MCV 103.8 H (80.0-100.0) fL MCH 36.1 H (25.0-35.0) pg APTT 54.5 H (22.0-30.0) sec BUN <2 L (7-17) mg/dL Glucose 112 H (74-99) mg/dL Magnesium (1.6-2.3) mg/dL Microbiology - Last 24 Hours (Table) 05/28/22 21:41 Stool Culture - Final Stool Apple albicans 05/25/22 13:31 Blood Culture - Final Blood No Growth after 144 hours 05/25/22 13:42 Blood Culture - Final Blood No Growth after 144 hours
== END 2022-06-01 15:08 | disposition home health service (06) | DRG 176 ==
LOC: EC 10:11 → 3SCARD 13:16
PROVIDERS: ADMIT Hospitalist; ATTEND Hospitalist
PROC: 0DB78ZX Excision of Stomach, Pylorus, Via Natural or Artificial Opening Endoscopic, Diagnostic (ICD-10-PCS; principal; 2022-05-30 11:05)
PROC: 0DBN8ZX Excision of Sigmoid Colon, Via Natural or Artificial Opening Endoscopic, Diagnostic (ICD-10-PCS; 2022-05-30 11:05)
DX: I26.99 Other pulmonary embolism without acute cor pulmonale (principal); D62 Acute posthemorrhagic anemia; E22.2 Syndrome of inappropriate secretion of antidiuretic hormone; R04.2 Hemoptysis; F17.210 Nicotine dependence, cigarettes, uncomplicated; R09.1 Pleurisy; E87.6 Hypokalemia; F31.9 Bipolar disorder, unspecified; F41.9 Anxiety disorder, unspecified; K21.9 Gastro-esophageal reflux disease without esophagitis; K64.4 Residual hemorrhoidal skin tags; K64.8 Other hemorrhoids; K76.0 Fatty (change of) liver, not elsewhere classified; Z20.822 Contact with and (suspected) exposure to COVID-19; Z79.01 Long term (current) use of anticoagulants; Z79.899 Other long term (current) drug therapy; Z87.19 Personal history of other diseases of the digestive system; Z98.82 Breast implant status; K63.5 Polyp of colon; Z90.49 Acquired absence of other specified parts of digestive tract; Z98.51 Tubal ligation status; R07.89 Other chest pain; Z71.6 Tobacco abuse counseling
CPT/HCPCS: 36415; 43239; 45385; 71046; 71275; 74176; 80048; 80053; 82272; 82746; 83540; 83550; 83630; 83735; 83935; 84145; 84300; 84443; 85025; 85027; 85379; 85610; 85730; 87040; 87045; 87046; 87070; 87205; 87324; 87636; 88305; 93005; 93970; 94640; 94760; 96361; 96365; 96367; 96368; 96375; 96376; 99291

== ENCOUNTER 2023-02-18 01:40 | Emergency (ER) | payer OTHER ==
[2023-02-18] MEDS ORDERED: PANTOPRAZOLE 40 MG/10 ML VIAL IVP STA (01:53)
--- NOTE | 2023-02-18 02:51 | ED ---
General Adult HPI - General Chief complaint: Chest Pain Stated complaint: Chest Pain, Dizziness Time Seen by Provider: 02/18/23 01:51 Source: patient, EMS, RN notes reviewed Mode of arrival: EMS Limitations: no limitations - History of Present Illness Initial comments: 63-year-old female presents emergency Department chief complaint of chest pain, weakness. Patient states that she's not been feeling well over the last couple weeks. She states that she feels like she is not pass out when she gets up. Patient states that she has some mid to epigastric pain. Patient does admit that she's recently told that she was anemic states she is unsure when her hemoglobin was. Patient has had prior EGD and colonoscopy. Patient states she also had an MRI of her abdomen. Patient states that she has noticed more frequent palpitations in her blood pressure is lower than normal. Patient is on Eliquis for prior PE. - Related Data Home Medications Medication Instructions Recorded Confirmed ALPRAZolam [Xanax] 1 mg PO TID PRN 05/25/22 05/25/22 OXcarbazepine [Trileptal] 300 mg PO TID 05/25/22 05/25/22 Omeprazole [PriLOSEC] 20 mg PO DAILY 05/25/22 05/25/22 QUEtiapine FUMARATE [SEROquel] 900 mg PO HS 05/25/22 05/25/22 Previous Rx's Medication Instructions Recorded Divalproex ER [Depakote ER] 500 mg PO HS 30 Days tab.er.24h 08/08/20 Apixaban [Eliquis Starter Pack 5 - 10 mg PO DIRECTED 30 Days 06/01/22 (for VTE)] #1 each Cholestyramine (with Sugar) 4 gm PO BID@1000,1800 30 Days #60 06/01/22 [Questran Packet] packet Allergies Allergy/AdvReac Type Severity Reaction Status Date / Time No Known Allergies Allergy Verified 02/18/23 01:50 Review of Systems ROS Statement: Those systems with pertinent positive or pertinent negative responses have been documented in the HPI. ROS Other: All systems not noted in ROS Statement are negative. Past Medical History Past Medical History: GERD/Reflux Additional Past Medical History / Comment(s): CHANGE IN BOWEL MOVEMENTS., HAVING PAIN IN STOMACH ,REFLUX WITH NAUSEA AND VOMITING. History of Any Multi-Drug Resistant Organisms: None Reported Past Surgical History: Appendectomy, Bowel Resection, Breast Surgery, Section, Cholecystectomy, Hernia Repair, Tubal Ligation Additional Past Surgical History / Comment(s): HERNIATED BOWEL REQUIRED BOWEL RESECTION., BREAST IMPLANTS, Pt. states "L breast imploded and the R implant needs to be removed. Past Anesthesia/Blood Transfusion Reactions: No Reported Reaction Additional Past Anesthesia/Blood Transfusion Reaction / Comment(s): HX OF BLOOD TRANSFUSION-NO REACTION Past Psychological History: Anxiety, Bipolar, Depression Smoking Status: Current every day smoker Past Alcohol Use History: None Reported Past Drug Use History: None Reported - Past Family History Mother Family Medical History: No Reported History Father Additional Family Medical History / Comment(s): COMMITTED SUICIDE AT AGE 28 General Exam Limitations: no limitations General appearance: alert, in no apparent distress Head exam: Present: atraumatic, normocephalic, normal inspection Eye exam: Present: normal appearance, PERRL, EOMI. Absent: scleral icterus, conjunctival injection, periorbital swelling ENT exam: Present: normal exam, normal oropharynx, mucous membranes moist, TM's normal bilaterally Neck exam: Present: normal inspection, full ROM. Absent: tenderness, meningismus, lymphadenopathy Respiratory exam: Present: normal lung sounds bilaterally. Absent: respiratory distress, wheezes, rales, rhonchi, stridor Cardiovascular Exam: Present: normal rhythm, tachycardia, normal heart sounds. Absent: systolic murmur, diastolic murmur, rubs, gallop, clicks GI/Abdominal exam: Present: soft, normal bowel sounds. Absent: distended, tenderness, guarding, rebound, rigid Rectal exam: Present: heme (+) stool, black stool, other (Exam performed with RN) Course Vital Signs 02/18/23 01:40 Temperature 98.2 F Pulse Rate 107 H Respiratory 18 Rate Blood Pressure 105/63 O2 Sat by Pulse 99 Oximetry EKG Findings - EKG Comments: EKG Findings:: EKG performed at 1:50 5H of tachycardia with a rate of 104 VT 184 QRS 101 QT/QTC 349/410 - EKG Results: EKG: interpreted by WAYNE Medical Decision Making - Medical Decision Making Was pt. sent in by a medical professional or institution (, PA, CLINICAL REHAB LIAISON, urgent care, hospital, or intermediate...) When possible be specific @ -No Did you speak to anyone other than the patient for history (EMS, parent, family, police, friend...)? What history was obtained from this source @ -No Did you review nursing and triage notes (agree or disagree)? Why? @ -I reviewed and agree with nursing and triage notes Were old charts reviewed (outside hosp., previous admission, EMS record, old EKG, old radiological studies, urgent care reports/EKG's, intermediate records)? Report findings @ -Reviewed prior laboratory studies Differential Diagnosis (chest pain, altered mental status, abdominal pain women, abdominal pain men, vaginal bleeding, weakness, fever, dyspnea, syncope, headache, dizziness, GI bleed, back pain, seizure, CVA, palpatations, mental health, musculoskeletal)? @ -Differential Abdominal Pain Women: Appendicitis, Cholecystitis, diverticulosis, ischemic bowel, pancreatitis, hepatitis, UTI, gastroenteritis, AAA, incarcerated hernia, bowel obstruction, constipation, inflammatory bowel, hepatitis, peptic ulcer disease, splenic infarction, perforated viscus, vulvitis, ovarian torsion, PID, kidney stone, placenta abruption, this is not meant to be an all-inclusive list EKG interpreted by me (3pts min.). @ -As above X-rays interpreted by me (1pt min.). @ -None done CT interpreted by me (1pt min.). @ -None done U/S interpreted by me (1pt. min.). @ -None done What testing was considered but not performed or refused? (CT, X-rays, U/S, labs)? Why? @ -None What meds were considered but not given or refused? Why? @ -None Did you discuss the management of the patient with other professionals (professionals i.e. , PA, CLINICAL REHAB LIAISON, lab, RT, psych nurse, healthcare social worker, bakery machine mechanic supervisor, teacher, chief scientific officer, correctional case manager)? Give summary @ -Did discuss the case with Dr. toribio at [facility] who accepts transfer Was smoking cessation discussed for >3mins.? @ -No Was critical care preformed (if so, how long)? @ -[35 mins Were there social determinants of health that impacted care today? How? (Homelessness, low income, unemployed, alcoholism, drug addiction, transportation, low edu. Level, literacy, decrease access to med. care, assisted, rehab)? @ -No Was there de-escalation of care discussed even if they declined (Discuss DNR or withdrawal of care, Hospice)? DNR status @ -No What co-morbidities impacted this encounter? (DM, HTN, Smoking, COPD, CAD, Canc er, CVA, ARF, Chemo, Hep., AIDS, mental health diagnosis, sleep apnea, morbid obesity)? @ -PE, anemia, Was patient admitted / discharged? Hospital course, mention meds given and route, prescriptions, significant lab abnormalities, going to OR and other pertinent info. @ -[Transferred patient noted hemoglobin 6.8, patient is Hemoccult positive an outburst last dose yesterday. Patient was given Protonix. Patient symptoms are consistent with upper GI bleed. Patient was ordered 1 unit of blood patient is transferred to [facility] Undiagnosed new problem with uncertain prognosis? @ -No Drug Therapy requiring intensive monitoring for toxicity (Heparin, Nitro, Insulin, Cardizem)? @ -No Were any procedures done? @ -No Diagnosis/symptom? @ -Anemia, GI bleed Acute, or Chronic, or Acute on Chronic? @ -Acute Uncomplicated (without systemic symptoms) or Complicated (systemic symptoms)? @ -Comp complicated Side effects of treatment? @ -No Exacerbation, Progression, or Severe Exacerbation? @ -No Poses a threat to life or bodily function? How? (Chest pain, USA, ME, pneumonia, PE, COPD, DKA, ARF, appy, cholecystitis, CVA, Diverticulitis, Homicidal, Suicidal, threat to staff... and all critical care pts) @ -Yes - Lab Data Result diagrams: 02/18/23 01:52 02/18/23 01:52 Lab Results 02/18/23 02/18/23 02/18/23 Range/Units 01:52 01:52 01:52 WBC 2.4 L (3.8-10.6) k/uL RBC 1.75 L (3.80-5.40) m/uL Hgb 6.8 L* (11.4-16.0) gm/dL Hct 20.1 L (34.0-46.0) % MCV 114.9 H (80.0-100.0) fL MCH 39.0 H (25.0-35.0) pg MCHC 33.9 (31.0-37.0) g/dL RDW 17.2 H (11.5-15.5) % Plt Count 110 L (150-450) k/uL MPV 8.5 Neutrophils % 59 % Lymphocytes % 37 % Monocytes % 1 % Eosinophils % 2 % Basophils % 0 % Neutrophils # 1.4 (1.3-7.7) k/uL Lymphocytes # 0.9 L (1.0-4.8) k/uL Monocytes # 0.0 (0-1.0) k/uL Eosinophils # 0.0 (0-0.7) k/uL Basophils # 0.0 (0-0.2) k/uL Hypochromasia Slight Anisocytosis Slight Macrocytosis Marked A PT 13.2 H (9.0-12.0) sec INR 1.3 H (<1.2) APTT 32.0 H (22.0-30.0) sec Sodium 138 (137-145) mmol/L Potassium 3.9 (3.5-5.1) mmol/L Chloride 102 (98-107) mmol/L Carbon Dioxide 21 L (22-30) mmol/L Anion Gap 15 mmol/L BUN 10 (7-17) mg/dL Creatinine 0.95 (0.52-1.04) mg/dL Est GFR (CKD-EPI)AfAm 75 (>60 ml/min/1.73 sqM) Est GFR (CKD-EPI)NonAf 65 (>60 ml/min/1.73 sqM) Glucose 119 H (74-99) mg/dL Calcium 10.1 (8.4-10.2) mg/dL Magnesium 1.5 L (1.6-2.3) mg/dL Total Bilirubin 0.5 (0.2-1.3) mg/dL AST 34 (14-36) U/L ALT 19 (4-34) U/L Alkaline Phosphatase 81 (38-126) U/L Total Protein 9.2 H (6.3-8.2) g/dL Albumin 3.7 (3.5-5.0) g/dL Lipase 70 (23-300) U/L Stool Occult Blood (Negative) Blood Type Blood Type Recheck Bld Type Recheck Status Antibody Screen Crossmatch Spec Expiration Date 02/18/23 02/18/23 Range/Units 02:11 03:09 WBC (3.8-10.6) k/uL RBC (3.80-5.40) m/uL Hgb (11.4-16.0) gm/dL Hct (34.0-46.0) % MCV (80.0-100.0) fL MCH (25.0-35.0) pg MCHC (31.0-37.0) g/dL RDW (11.5-15.5) % Plt Count (150-450) k/uL MPV Neutrophils % % Lymphocytes % % Monocytes % % Eosinophils % % Basophils % % Neutrophils # (1.3-7.7) k/uL Lymphocytes # (1.0-4.8) k/uL Monocytes # (0-1.0) k/uL Eosinophils # (0-0.7) k/uL Basophils # (0-0.2) k/uL Hypochromasia Anisocytosis Macrocytosis PT (9.0-12.0) sec INR (<1.2) APTT (22.0-30.0) sec Sodium (137-145) mmol/L Potassium (3.5-5.1) mmol/L Chloride (98-107) mmol/L Carbon Dioxide (22-30) mmol/L Anion Gap mmol/L BUN (7-17) mg/dL Creatinine (0.52-1.04) mg/dL Est GFR (CKD-EPI)AfAm (>60 ml/min/1.73 sqM) Est GFR (CKD-EPI)NonAf (>60 ml/min/1.73 sqM) Glucose (74-99) mg/dL Calcium (8.4-10.2) mg/dL Magnesium (1.6-2.3) mg/dL Total Bilirubin (0.2-1.3) mg/dL AST (14-36) U/L ALT (4-34) U/L Alkaline Phosphatase (38-126) U/L Total Protein (6.3-8.2) g/dL Albumin (3.5-5.0) g/dL Lipase (23-300) U/L Stool Occult Blood Positive H (Negative) Blood Type A Positive Blood Type Recheck A Pos Bld Type Recheck Status No Antibody Screen NEGATIVE Crossmatch See Detail Spec Expiration Date 02/21/20232310 Disposition Clinical Impression: GI bleed, Anemia Disposition: OTHER INSTITUTION NOT DEFINED Condition: Fair Referrals: MYLA RUTHERFORD MD [Primary Care Provider] - 1-2 days Time of Disposition: 04:14 - Out of Hospital Transfer - Req. Specs Out of Hospital Transfer - Requested Specifics: Other Emergency Center ([facility])
[2023-02-18 02:53] LABS: Anisocytosis Slight; Basophils % (A) 0 %; Eosinophils % (A) 2 %; HCT 20.1 % (34.0-46.0); Hypochromasia Slight; Lymphocytes # (A) 0.9 k/uL (1.0-4.8); Lymphocytes % (A) 37 %; MCHC 33.9 g/dL (31.0-37.0); MCV 114.9 fL (80.0-100.0); Macrocytosis Marked; Mean Platelet Volume 8.5; Monocytes % (A) 1 %; Neutrophils # (A) 1.4 k/uL (1.3-7.7); Neutrophils % (A) 59 %; Platelet Count 110 k/uL (150-450); RBC 1.75 m/uL (3.80-5.40); RDW 17.2 % (11.5-15.5); WBC 2.4 k/uL (3.8-10.6)
[2023-02-18 02:55] LABS: HGB 6.8 gm/dL (11.4-16.0)
[2023-02-18 02:58] LABS: INR 1.3 (<1.2); Prothrombin Time 13.2 sec (9.0-12.0)
[2023-02-18 03:13] LABS: ALT 19 U/L (4-34); African American GFR (CKD) 75 (>60 ml/min/1.73 sqM); Albumin 3.7 g/dL (3.5-5.0); Anion Gap 15 mmol/L; Blood Urea Nitrogen 10 mg/dL (7-17); Calcium 10.1 mg/dL (8.4-10.2); Carbon Dioxide 21 mmol/L (22-30); Chloride 102 mmol/L (98-107); Glucose 119 mg/dL (74-99); Lipase 70 U/L (23-300); Non-African American GFR(CKD) 65 (>60 ml/min/1.73 sqM); Sodium 138 mmol/L (137-145); Total Bilirubin 0.5 mg/dL (0.2-1.3); Total Protein 9.2 g/dL (6.3-8.2)
[2023-02-18 03:28] LABS: Potassium 3.9 mmol/L (3.5-5.1)
[2023-02-18 03:29] LABS: AST 34 U/L (14-36); Alkaline Phosphatase 81 U/L (38-126); Magnesium 1.5 mg/dL (1.6-2.3)
[2023-02-18 05:04] VITALS: RESP 16
[2023-02-18 05:17] VITALS: TEMP 97.7
[2023-02-18 05:43] VITALS: BP 91/59; PULSE 94
--- NOTE | 2023-02-18 06:01 | XR ---
EXAM: XR Chest, 2 Views CLINICAL HISTORY: Chest Pain TECHNIQUE: Frontal and lateral views of the chest. COMPARISON: 06/14/2022. FINDINGS: Lungs: Mild peribronchial cuffing, which may represent infectious versus inflammatory airways disease. Pleural space: Unremarkable. No pneumothorax. Heart: Unremarkable. No cardiomegaly. Mediastinum: Unremarkable. Bones/joints: Unremarkable. Soft tissues: Peripherally calcified right breast implant is again noted. Upper abdomen: Status post cholecystectomy. IMPRESSION: Mild peribronchial cuffing, which may represent infectious versus inflammatory airways disease.
== END 2023-02-18 05:33 | disposition other institution (70) ==
LOC: EC 01:40
DX: D64.9 Anemia, unspecified (principal); K92.2 Gastrointestinal hemorrhage, unspecified; R00.0 Tachycardia, unspecified; K21.9 Gastro-esophageal reflux disease without esophagitis; F41.9 Anxiety disorder, unspecified; F31.9 Bipolar disorder, unspecified; F17.200 Nicotine dependence, unspecified, uncomplicated; Z79.899 Other long term (current) drug therapy
CPT/HCPCS: 99291; 96374; 36430; 36415; 93005; 86900; 86901; 80053; 83690; 83735; 85025; 85610; 85730; 86850; 86920; 82272; 71046; P9016; C9113

== ENCOUNTER 2023-03-08 16:16 | Emergency (ER) | payer OTHER ==
[2023-03-08 16:37] VITALS: TEMP 98
[2023-03-08] MEDS ORDERED: SODIUM CHLORIDE 0.9% 1,000 ML IV STA (16:42)
[2023-03-08] MEDS ORDERED: ACETAMINOPHEN IV (For NPO) 1,000 MG in EMPTY BAG 1 BAG IVPB STA (17:15)
[2023-03-08] MEDS ORDERED: fentaNYL (PF) 50 MCG/ML 2 ML AMP IVP PRN (17:15)
[2023-03-08] MEDS ORDERED: KETOROLAC 15 MG/ML 1 ML VIAL IVP STA (17:15)
--- NOTE | 2023-03-08 17:16 | ED ---
Weakness HPI - General Chief complaint: Weakness Stated complaint: Blood pressure low Time Seen by Provider: 03/08/23 16:23 Source: patient, RN notes reviewed, old records reviewed Mode of arrival: ambulatory Limitations: no limitations - History of Present Illness Initial comments: This is a 63-year-old female to the emergency department for evaluation today. Patient comes in today for evaluation of weakness lightheadedness dizziness severe left-sided chest wall pain after hitting her chest wall against a bench patient's pain is increasing for a few days of shortness of breath and severe tenderness on the left rib cage. No abdominal pain. MD Complaint: generalized weakness, lack of energy, difficulty walking Location: generalized Severity: moderate Severity scale (1-10): 6 Consistency: constant Improves with: none Worsens with: none Context: recent illness, history of similar Associated Symptoms: shortness of breath - Related Data Home Medications Medication Instructions Recorded Confirmed ALPRAZolam [Xanax] 1 mg PO TID PRN 05/25/22 03/12/23 OXcarbazepine [Trileptal] 300 mg PO TID 05/25/22 03/12/23 Apixaban [Eliquis] 5 mg PO BID 03/08/23 03/12/23 Cyanocobalamin (Vitamin B-12) 1,000 mcg PO DAILY 03/08/23 03/12/23 [Vitamin B-12] Doxycycline Hyclate 100 mg PO BID 03/08/23 03/12/23 Ferrous Sulfate [Feosol] 325 mg PO DAILY 03/08/23 03/12/23 Omeprazole 40 mg PO BID 03/08/23 03/12/23 QUEtiapine [SEROquel] 1,200 mg PO HS 03/08/23 03/12/23 Allergies Allergy/AdvReac Type Severity Reaction Status Date / Time No Known Allergies Allergy Verified 03/08/23 20:09 Review of Systems ROS Statement: Those systems with pertinent positive or pertinent negative responses have been documented in the HPI. ROS Other: All systems not noted in ROS Statement are negative. Past Medical History Past Medical History: GERD/Reflux Additional Past Medical History / Comment(s): CHANGE IN BOWEL MOVEMENTS., HAVING PAIN IN STOMACH ,REFLUX WITH NAUSEA AND VOMITING. History of Any Multi-Drug Resistant Organisms: None Reported Past Surgical History: Appendectomy, Bowel Resection, Breast Surgery, Section, Cholecystectomy, Hernia Repair, Tubal Ligation Additional Past Surgical History / Comment(s): HERNIATED BOWEL REQUIRED BOWEL RESECTION., BREAST IMPLANTS, Pt. states "L breast imploded and the R implant needs to be removed. Past Anesthesia/Blood Transfusion Reactions: No Reported Reaction Additional Past Anesthesia/Blood Transfusion Reaction / Comment(s): HX OF BLOOD TRANSFUSION-NO REACTION Past Psychological History: Anxiety, Bipolar, Depression Smoking Status: Current every day smoker Past Alcohol Use History: None Reported Past Drug Use History: None Reported - Past Family History Mother Family Medical History: No Reported History Father Additional Family Medical History / Comment(s): COMMITTED SUICIDE AT AGE 28 General Exam Limitations: no limitations General appearance: alert, in no apparent distress Head exam: Present: atraumatic, normocephalic, normal inspection Eye exam: Present: normal appearance, PERRL, EOMI. Absent: scleral icterus, conjunctival injection, periorbital swelling ENT exam: Present: normal exam, mucous membranes moist Neck exam: Present: normal inspection. Absent: tenderness, meningismus, lymphadenopathy Respiratory exam: Present: normal lung sounds bilaterally. Absent: respiratory distress, wheezes, rales, rhonchi, stridor Cardiovascular Exam: Present: regular rate, normal rhythm, normal heart sounds. Absent: systolic murmur, diastolic murmur, rubs, gallop, clicks GI/Abdominal exam: Present: soft, normal bowel sounds. Absent: distended, tenderness, guarding, rebound, rigid Extremities exam: Present: normal inspection, full ROM, normal capillary refill. Absent: tenderness, pedal edema, joint swelling, calf tenderness Back exam: Present: normal inspection Neurological exam: Present: alert, oriented X3, CN II-XII intact Psychiatric exam: Present: normal affect, normal mood Skin exam: Present: warm, dry, intact, normal color. Absent: rash Course Vital Signs 03/08/23 03/08/23 03/08/23 16:18 17:30 18:15 Temperature 98 F Pulse Rate 122 H 109 H 101 H Respiratory 20 22 22 Rate Blood Pressure 80/54 107/76 95/72 O2 Sat by Pulse 97 94 L 94 L Oximetry 03/08/23 22:50 Temperature Pulse Rate 100 Respiratory 18 Rate Blood Pressure 112/82 O2 Sat by Pulse 99 Oximetry - Reevaluation(s) Reevaluation #1: 03/08/23 17:51 Records reviewed Reevaluation #2: symptoms are improved and pain is controlled Reevaluation #3: Results and questions are answered Reevaluation #4: 03/08/23 17:51 Was pt. sent in by a medical professional or institution (RASHAWN Ann, TEMPORARY STAFF ACCOUNTANT, urgent care, hospital, or custodial...) When possible be specific @ -no Did you speak to anyone other than the patient for history (EMS, parent, family, police, friend...)? What history was obtained from this source @ -no Did you review nursing and triage notes (agree or disagree)? Why? @ -agree Are old charts reviewed (outside hosp., previous admission, EMS record, old EKG, old radiological studies, urgent care reports/EKG's, custodial records)? Report findings @ -yes Differential Diagnosis (chest pain, altered mental status, abdominal pain women, abdominal pain men, vaginal bleeding, weakness, fever, dyspnea, syncope, headache, dizziness, GI bleed, back pain, seizure, CVA, palpatations, mental health, musculoskeletal)? @ -prior EKG interpreted by me (3pts min.). @ -yes X-rays interpreted by me (1pt min.). @ -yes CT interpreted by me (1pt min.). @ -no U/S interpreted by me (1pt. min.). @ -no What testing was considered but not performed or refused? (CT, X-rays, U/S, labs)? Why? @ -none What meds were considered but not given or refused? Why? @ -none Did you discuss the management of the patient with other professionals (professionals i.e. RASHAWN Ann, TEMPORARY STAFF ACCOUNTANT, lab, RT, psych nurse, social service assistant, aboriginal education teacher, teacher, chief customer officer, pillowcase sewer)? Give summary @ -no Was smoking cessation discussed for >3mins.? @ -no Was critical care preformed (if so, how long)? @ -no Were there social determinants of health that impacted care today? How? (Homelessness, low income, unemployed, alcoholism, drug addiction, transportation, low edu. Level, literacy, decrease access to med. care, fpc, rehab)? @ -none Was there de-escalation of care discussed even if they declined (Discuss DNR or withdrawal of care, Hospice)? DNR status @ -no What co-morbidities impacted this encounter? (DM, HTN, Smoking, COPD, CAD, Cancer, CVA, ARF, Chemo, Hep., AIDS, mental health diagnosis, sleep apnea, morbid obesity)? @ -none Was patient admitted / discharged? Hospital course, mention meds given and route, prescriptions, significant lab abnormalities, going to OR and other pertinent info. @ - 63 female to the emergency department for evaluation of fall with left for fracture. Patient has severe rib pain which is improved here in the ER patient's symptoms are improved and she can be discharged home Discharge Undiagnosed new problem with uncertain prognosis? @ -no Drug Therapy requiring intensive monitoring for toxicity (Heparin, Nitro, Insulin, Cardizem)? @ -no Were any procedures done? @ -no Diagnosis/symptom? @ -Rib fracture Acute, or Chronic, or Acute on Chronic? @ -Acute Uncomplicated (without systemic symptoms) or Complicated (systemic symptoms)? @ -Complicated Side effects of treatment? @ -no Exacerbation, Progression, or Severe Exacerbation? @ -exacerbation Poses a threat to life or bodily function? How? (Chest pain, USA, AR, pneumonia, PE, COPD, DKA, ARF, appy, cholecystitis, CVA, Diverticulitis, Homicidal, Suicidal, threat to staff... and all critical care pts) @ -yes Reevaluation #5: 03/08/23 17:51 Differential Weakness: Hypoglycemia, shock, sepsis, hyponatremia, anemia, infection, AR, ETOH, adverse medicine reaction, overdose, stroke, this is not meant to be an all-inclusive list. EKG Findings - EKG Comments: EKG Findings:: EKG is sinus tachycardia 105 MT 151 QRS 90 QTC 409 - EKG Results: EKG: interpreted by HETALD Medical Decision Making - Medical Decision Making 63 female to the emergency department for evaluation of fall with left for fracture. Patient has severe rib pain which is improved here in the ER patient's symptoms are improved and she can be discharged home - Lab Data Result diagrams: 03/08/23 16:55 03/08/23 18:35 Lab Results 03/08/23 03/08/23 03/08/23 Range/Units 16:55 16:55 16:55 WBC 3.4 L (3.8-10.6) k/uL RBC 2.94 L (3.80-5.40) m/uL Hgb 10.8 L D (11.4-16.0) gm/dL Hct 31.4 L (34.0-46.0) % MCV 106.9 H D (80.0-100.0) fL MCH 36.9 H (25.0-35.0) pg MCHC 34.6 (31.0-37.0) g/dL RDW 18.1 H (11.5-15.5) % Plt Count 199 D (150-450) k/uL MPV 8.7 Neutrophils % 73 % Lymphocytes % 23 % Monocytes % 1 % Eosinophils % 2 % Basophils % 0 % Neutrophils # 2.5 (1.3-7.7) k/uL Lymphocytes # 0.8 L (1.0-4.8) k/uL Monocytes # 0.0 (0-1.0) k/uL Eosinophils # 0.1 (0-0.7) k/uL Basophils # 0.0 (0-0.2) k/uL Manual Slide Review Performed Hypochromasia Slight Anisocytosis Slight Macrocytosis Marked A PT 16.0 H (10.0-12.5) sec INR 1.6 H (<1.2) APTT 35.8 H (22.0-30.0) sec Sodium (137-145) mmol/L Potassium (3.5-5.1) mmol/L Chloride (98-107) mmol/L Carbon Dioxide (22-30) mmol/L Anion Gap mmol/L BUN (7-17) mg/dL Creatinine (0.52-1.04) mg/dL Est GFR (CKD-EPI)AfAm (>60 ml/min/1.73 sqM) Est GFR (CKD-EPI)NonAf (>60 ml/min/1.73 sqM) Glucose (74-99) mg/dL Plasma Lactic Acid [place] 1.9 (0.7-2.0) mmol/L Calcium (8.4-10.2) mg/dL Phosphorus (2.5-4.5) mg/dL Magnesium (1.6-2.3) mg/dL Total Bilirubin (0.2-1.3) mg/dL AST (14-36) U/L ALT (4-34) U/L Alkaline Phosphatase (38-126) U/L Troponin I (0.000-0.034) ng/mL NT-Pro-B Natriuret Pep Total Protein (6.3-8.2) g/dL Albumin (3.5-5.0) g/dL TSH Urine Color Urine Appearance (Clear) Urine pH (5.0-8.0) Ur Specific [place] (1.001-1.035) Urine Protein (Negative) Urine Glucose (UA) (Negative) Urine Ketones (Negative) Urine Blood (Negative) Urine Nitrite (Negative) Urine Bilirubin (Negative) Urine Urobilinogen (<2.0) mg/dL Ur Leukocyte Esterase (Negative) 03/08/23 03/08/23 03/08/23 Range/Units 18:35 19:45 20:30 WBC (3.8-10.6) k/uL RBC (3.80-5.40) m/uL Hgb (11.4-16.0) gm/dL Hct (34.0-46.0) % MCV (80.0-100.0) fL MCH (25.0-35.0) pg MCHC (31.0-37.0) g/dL RDW (11.5-15.5) % Plt Count (150-450) k/uL MPV Neutrophils % % Lymphocytes % % Monocytes % % Eosinophils % % Basophils % % Neutrophils # (1.3-7.7) k/uL Lymphocytes # (1.0-4.8) k/uL Monocytes # (0-1.0) k/uL Eosinophils # (0-0.7) k/uL Basophils # (0-0.2) k/uL Manual Slide Review Hypochromasia Anisocytosis Macrocytosis PT (10.0-12.5) sec INR (<1.2) APTT (22.0-30.0) sec Sodium 132 L (137-145) mmol/L Potassium 3.8 (3.5-5.1) mmol/L Chloride 99 (98-107) mmol/L Carbon Dioxide 22 (22-30) mmol/L Anion Gap 11 mmol/L BUN 29 H (7-17) mg/dL Creatinine 1.41 H (0.52-1.04) mg/dL Est GFR (CKD-EPI)AfAm 46 (>60 ml/min/1.73 sqM) Est GFR (CKD-EPI)NonAf 40 (>60 ml/min/1.73 sqM) Glucose 111 H (74-99) mg/dL Plasma Lactic Acid [place] (0.7-2.0) mmol/L Calcium 11.1 H (8.4-10.2) mg/dL Phosphorus 4.3 (2.5-4.5) mg/dL Magnesium 1.7 (1.6-2.3) mg/dL Total Bilirubin 0.4 (0.2-1.3) mg/dL AST 37 H (14-36) U/L ALT 25 (4-34) U/L Alkaline Phosphatase 126 (38-126) U/L Troponin I <0.012 (0.000-0.034) ng/mL NT-Pro-B Natriuret Pep Cancelled Total Protein 8.2 (6.3-8.2) g/dL Albumin 3.1 L (3.5-5.0) g/dL TSH Cancelled Urine Color Light Yellow Urine Appearance Clear (Clear) Urine pH 5.5 (5.0-8.0) Ur Specific [place] 1.014 (1.001-1.035) Urine Protein Trace H (Negative) Urine Glucose (UA) Negative (Negative) Urine Ketones Negative (Negative) Urine Blood Negative (Negative) Urine Nitrite Negative (Negative) Urine Bilirubin Negative (Negative) Urine Urobilinogen <2.0 (<2.0) mg/dL Ur Leukocyte Esterase Negative (Negative) 03/08/23 Range/Units 20:30 WBC (3.8-10.6) k/uL RBC (3.80-5.40) m/uL Hgb (11.4-16.0) gm/dL Hct (34.0-46.0) % MCV (80.0-100.0) fL MCH (25.0-35.0) pg MCHC (31.0-37.0) g/dL RDW (11.5-15.5) % Plt Count (150-450) k/uL MPV Neutrophils % % Lymphocytes % % Monocytes % % Eosinophils % % Basophils % % Neutrophils # (1.3-7.7) k/uL Lymphocytes # (1.0-4.8) k/uL Monocytes # (0-1.0) k/uL Eosinophils # (0-0.7) k/uL Basophils # (0-0.2) k/uL Manual Slide Review Hypochromasia Anisocytosis Macrocytosis PT (10.0-12.5) sec INR (<1.2) APTT (22.0-30.0) sec Sodium (137-145) mmol/L Potassium (3.5-5.1) mmol/L Chloride (98-107) mmol/L Carbon Dioxide (22-30) mmol/L Anion Gap mmol/L BUN (7-17) mg/dL Creatinine (0.52-1.04) mg/dL Est GFR (CKD-EPI)AfAm (>60 ml/min/1.73 sqM) Est GFR (CKD-EPI)NonAf (>60 ml/min/1.73 sqM) Glucose (74-99) mg/dL Plasma Lactic Acid [place] (0.7-2.0) mmol/L Calcium (8.4-10.2) mg/dL Phosphorus (2.5-4.5) mg/dL Magnesium (1.6-2.3) mg/dL Total Bilirubin (0.2-1.3) mg/dL AST (14-36) U/L ALT (4-34) U/L Alkaline Phosphatase (38-126) U/L Troponin I (0.000-0.034) ng/mL NT-Pro-B Natriuret Pep 71 Total Protein (6.3-8.2) g/dL Albumin (3.5-5.0) g/dL TSH 1.26 Urine Color Urine Appearance (Clear) Urine pH (5.0-8.0) Ur Specific [place] (1.001-1.035) Urine Protein (Negative) Urine Glucose (UA) (Negative) Urine Ketones (Negative) Urine Blood (Negative) Urine Nitrite (Negative) Urine Bilirubin (Negative) Urine Urobilinogen (<2.0) mg/dL Ur Leukocyte Esterase (Negative) - Radiology Data Radiology results: report reviewed (General surgery is positive for left rib fracture), image reviewed Disposition Clinical Impression: Left rib fracture Disposition: HOME SELF-CARE Is patient prescribed a controlled substance at d/c from ED?: No Referrals: MYLA RUTHERFORD MD [Primary Care Provider] - 1-2 days Time of Disposition: 22:05
[2023-03-08 17:52] LABS: Anisocytosis Slight; Basophils % (A) 0 %; Eosinophils # (A) 0.1 k/uL (0-0.7); Eosinophils % (A) 2 %; HCT 31.4 % (34.0-46.0); Hypochromasia Slight; INR 1.6 (<1.2); Lymphocytes # (A) 0.8 k/uL (1.0-4.8); Lymphocytes % (A) 23 %; MCH 36.9 pg (25.0-35.0); MCHC 34.6 g/dL (31.0-37.0); Macrocytosis Marked; Mean Platelet Volume 8.7; Monocytes % (A) 1 %; Neutrophils # (A) 2.5 k/uL (1.3-7.7); Neutrophils % (A) 73 %; Partial Thromboplastin Time 35.8 sec (22.0-30.0); Platelet Count 199 k/uL (150-450); RBC 2.94 m/uL (3.80-5.40); RDW 18.1 % (11.5-15.5); WBC 3.4 k/uL (3.8-10.6)
[2023-03-08 17:53] LABS: HGB 10.8 gm/dL (11.4-16.0); MCV 106.9 fL (80.0-100.0)
--- NOTE | 2023-03-08 18:13 | XR ---
EXAMINATION TYPE: XR ribs LT w pa chest xray DATE OF EXAM: 03/08/2023 COMPARISON: 02/18/2023 HISTORY: Pain left ribs TECHNIQUE: Frontal chest 2 views left RIBS FINDINGS: Heart size is normal. Pulmonary vasculature is normal. Lungs are clear. Right breast prosth esis is present. No pneumothorax is evident. Left ribs appear intact. Fracture of the anterior eighth rib. Anterior se venth rib fracture is present. IMPRESSION: 1. Anterior left seventh and eighth rib fractures
[2023-03-08 19:19] LABS: ALT 25 U/L (4-34); AST 37 U/L (14-36); African American GFR (CKD) 46 (>60 ml/min/1.73 sqM); Albumin 3.1 g/dL (3.5-5.0); Alkaline Phosphatase 126 U/L (38-126); Anion Gap 11 mmol/L; Blood Urea Nitrogen 29 mg/dL (7-17); Calcium 11.1 mg/dL (8.4-10.2); Carbon Dioxide 22 mmol/L (22-30); Chloride 99 mmol/L (98-107); Glucose 111 mg/dL (74-99); Magnesium 1.7 mg/dL (1.6-2.3); Non-African American GFR(CKD) 40 (>60 ml/min/1.73 sqM); Phosphorus 4.3 mg/dL (2.5-4.5); Potassium 3.8 mmol/L (3.5-5.1); Sodium 132 mmol/L (137-145); Total Bilirubin 0.4 mg/dL (0.2-1.3); Total Protein 8.2 g/dL (6.3-8.2)
[2023-03-08] MEDS ORDERED: HYDROmorphone 0.5 MG/0.5 ML SYRINGE IVP STA (19:25)
[2023-03-08 20:12] LABS: Appearance,Urine Clear (Clear); Bilirubin,Urine Negative (Negative); Blood,Urine Negative (Negative); Color,Urine Light Yellow; Glucose,Urine (UA) Negative (Negative); Ketones,Urine Negative (Negative); Leukocyte Esterase,Urine Negative (Negative); Nitrite,Urine Negative (Negative); PH, Urine 5.5 (5.0-8.0); Protein,Urine Trace (Negative); Specific Gravity,Urine 1.014 (1.001-1.035); Urobilinogen,Urine <2.0 mg/dL (<2.0)
[2023-03-08] MEDS ORDERED: ONDANSETRON 4 MG ODT STARTER PACK 2 TAB BTL PO STA (22:22)
[2023-03-08] MEDS ORDERED: ACET/COD 300 MG/30 MG STARTER PACK 6 TAB BTL PO STA (22:22)
[2023-03-08] MEDS ORDERED: ONDANSETRON 4 MG/2 ML VIAL IVP STA (22:22)
[2023-03-08 23:19] VITALS: BP 112/82; PULSE 100; RESP 18
== END 2023-03-08 22:50 | disposition home or self-care (01) ==
LOC: EC 16:16
DX: S22.42XA Multiple fractures of ribs, left side, initial encounter for closed fracture (principal); R00.0 Tachycardia, unspecified; K21.9 Gastro-esophageal reflux disease without esophagitis; F31.9 Bipolar disorder, unspecified; F41.9 Anxiety disorder, unspecified; F17.200 Nicotine dependence, unspecified, uncomplicated; Z79.01 Long term (current) use of anticoagulants; Z79.899 Other long term (current) drug therapy
CPT/HCPCS: 36415; 93005; 83880; 80053; 83605; 83735; 84100; 84443; 84484; 85025; 85610; 85730; 81003; 87040; 71101; 99285; 96374; 96375 ×3; 96361; J2405; J3010; J0131; J1885; S0119

== ENCOUNTER 2023-07-29 15:54 | Inpatient (IN) | payer OTHER ==
--- NOTE | 2023-07-29 16:22 | ED ---
Back Pain HPI - General Chief Complaint: Back Pain/Injury Stated Complaint: Back Pain Time Seen by Provider: 07/29/23 16:01 Source: EMS, RN notes reviewed, old records reviewed Mode of arrival: EMS Limitations: altered mental status - History of Present Illness Initial Comments: This is a 63-year-old female to the ER for evaluation. Patient coming in for back pain today, per EMS patient called into the house with back pain but patient appeared to be laying in bed for some time, she states due to her back pain she has been unable to get up or move unable to eat or drink and has not been taking care of herself. Patient is currently moderately poor historian and she does seem focused on her back pain as an aside this does appear to be in direct conflict with her vital signs which are unstable MD Complaint: back pain, other (Weakness debility altered mental status) Similar Symptoms Previously: Yes Radiation: none Severity: severe Consistency: constant Improves With: none Worsens With: none Associated Symptoms: confusion, weakness, difficulty walking, loss of appetite, malaise, shortness of breath - Related Data Home Medications Medication Instructions Recorded Confirmed ALPRAZolam [Xanax] 1 mg PO TID PRN 05/25/22 07/29/23 OXcarbazepine [Trileptal] 300 mg PO TID 05/25/22 07/29/23 Apixaban [Eliquis] 5 mg PO BID 03/08/23 07/29/23 Cyanocobalamin (Vitamin B-12) 1,000 mcg PO DAILY 03/08/23 07/29/23 [Vitamin B-12] Ferrous Sulfate [Feosol] 325 mg PO DAILY 03/08/23 07/29/23 Omeprazole 40 mg PO BID 03/08/23 07/29/23 QUEtiapine [SEROquel] 1,200 mg PO HS 03/08/23 07/29/23 methocarbamoL [Robaxin] 500 mg PO TID PRN 07/29/23 07/29/23 Allergies Allergy/AdvReac Type Severity Reaction Status Date / Time No Known Allergies Allergy Verified 07/29/23 19:10 Review of Systems ROS Statement: Those systems with pertinent positive or pertinent negative responses have been documented in the HPI. ROS Other: All systems not noted in ROS Statement are negative. Past Medical History Past Medical History: GERD/Reflux Additional Past Medical History / Comment(s): CHANGE IN BOWEL MOVEMENTS., HAVING PAIN IN STOMACH ,REFLUX WITH NAUSEA AND VOMITING. History of Any Multi-Drug Resistant Organisms: None Reported Past Surgical History: Appendectomy, Bowel Resection, Breast Surgery, Section, Cholecystectomy, Hernia Repair, Tubal Ligation Additional Past Surgical History / Comment(s): HERNIATED BOWEL REQUIRED BOWEL RESECTION., BREAST IMPLANTS, Pt. states "L breast imploded and the R implant needs to be removed. Past Anesthesia/Blood Transfusion Reactions: No Reported Reaction Additional Past Anesthesia/Blood Transfusion Reaction / Comment(s): HX OF BLOOD TRANSFUSION-NO REACTION Past Psychological History: Anxiety, Bipolar, Depression Smoking Status: Current every day smoker Past Alcohol Use History: None Reported Past Drug Use History: None Reported - Past Family History Mother Family Medical History: No Reported History Father Additional Family Medical History / Comment(s): COMMITTED SUICIDE AT AGE 28 General Exam Limitations: altered mental status, physical limitation General appearance: alert, anxious, lethargic, obtunded, in distress Head exam: Present: atraumatic, normocephalic, normal inspection Eye exam: Present: normal appearance, PERRL, EOMI. Absent: scleral icterus, conjunctival injection, periorbital swelling ENT exam: Present: normal exam, mucous membranes moist Neck exam: Present: normal inspection. Absent: tenderness, meningismus, lymphadenopathy Respiratory exam: Present: normal lung sounds bilaterally. Absent: respiratory distress, wheezes, rales, rhonchi, stridor Cardiovascular Exam: Present: regular rate, normal rhythm, normal heart sounds. Absent: systolic murmur, diastolic murmur, rubs, gallop, clicks GI/Abdominal exam: Present: soft, normal bowel sounds. Absent: distended, tenderness, guarding, rebound, rigid Extremities exam: Present: normal inspection, full ROM, normal capillary refill. Absent: tenderness, pedal edema, joint swelling, calf tenderness Back exam: Present: normal inspection Neurological exam: Present: alert, oriented X3, CN II-XII intact Psychiatric exam: Present: normal affect, normal mood Skin exam: Present: warm, dry, intact, normal color. Absent: rash Course Vital Signs 07/29/23 07/29/23 07/29/23 16:02 16:45 17:00 Temperature 98.1 F Pulse Rate 67 124 H 124 H Respiratory 18 24 24 Rate Blood Pressure 98/57 73/48 75/46 O2 Sat by Pulse 99 98 98 Oximetry 07/29/23 07/29/23 07/29/23 18:00 18:24 18:45 Temperature Pulse Rate 120 H 122 H 124 H Respiratory 18 18 18 Rate Blood Pressure 81/46 74/54 79/54 O2 Sat by Pulse 96 98 94 L Oximetry 07/29/23 07/29/23 07/29/23 19:00 19:30 20:00 Temperature Pulse Rate 122 H 121 H 124 H Respiratory 19 30 H 18 Rate Blood Pressure 79/50 82/49 84/52 O2 Sat by Pulse 96 97 99 Oximetry 07/29/23 07/29/23 07/29/23 20:30 20:45 21:00 Temperature Pulse Rate 124 H 129 H 130 H Respiratory 23 24 20 Rate Blood Pressure 75/53 99/77 89/69 O2 Sat by Pulse 100 96 93 L Oximetry 07/29/23 07/29/23 21:30 21:46 Temperature 98.2 F Pulse Rate 133 H Respiratory 22 Rate Blood Pressure 83/67 O2 Sat by Pulse 95 Oximetry - Reevaluation(s) Reevaluation #1: 07/29/23 18:54 Medical records reviewed Reevaluation #2: 07/29/23 18:54 Patient symptoms are unchanged Reevaluation #3: 07/29/23 18:54 Patient informed of results and questions answered Reevaluation #4: Was pt. sent in by a medical professional or institution (, PA, MANAGER OF APPLICATION DEVELOPMENT, urgent care, hospital, or long-term...) When possible be specific @ -no Did you speak to anyone other than the patient for history (EMS, parent, family, police, friend...)? What history was obtained from this source @ -no Did you review nursing and triage notes (agree or disagree)? Why? @ -agree Are old charts reviewed (outside hosp., previous admission, EMS record, old EKG, old radiological studies, urgent care reports/EKG's, long-term records)? Report findings @ -yes Differential Diagnosis (chest pain, altered mental status, abdominal pain women, abdominal pain men, vaginal bleeding, weakness, fever, dyspnea, syncope, headache, dizziness, GI bleed, back pain, seizure, CVA, palpatations, mental health, musculoskeletal)? @ -prior EKG interpreted by me (3pts min.). @ -yes X-rays interpreted by me (1pt min.). @ -no CT interpreted by me (1pt min.). @ -Yes negative for acute disease U/S interpreted by me (1pt. min.). @ -no What testing was considered but not performed or refused? (CT, X-rays, U/S, labs)? Why? @ -none What meds were considered but not given or refused? Why? @ -none Did you discuss the management of the patient with other professionals (professionals i.e. DrDavid, PA, MANAGER OF APPLICATION DEVELOPMENT, lab, RT, psych nurse, hospice social worker, fabrics and material cutter, teacher, logistics officer, family service caseworker)? Give summary @ -no Was smoking cessation discussed for >3mins.? @ -no Was critical care preformed (if so, how long)? @ -yes31 Were there social determinants of health that impacted care today? How? (Homelessness, low income, unemployed, alcoholism, drug addiction, transportation, low edu. Level, literacy, decrease access to med. care, half-way, rehab)? @ -none Was there de-escalation of care discussed even if they declined (Discuss DNR or withdrawal of care, Hospice)? DNR status @ -no What co-morbidities impacted this encounter? (DM, HTN, Smoking, COPD, CAD, Cancer, CVA, ARF, Chemo, Hep., AIDS, mental health diagnosis, sleep apnea, morbid obesity)? @ -none Was patient admitted / discharged? Hospital course, mention meds given and route, prescriptions, significant lab abnormalities, going to OR and other pertinent info. @ - 63 female to ER for evaluation of back pain which does appear to have significant altered vital signs including low blood pressure elevated heart rate and significant abnormal lab values. Patient has new onset renal failure and significant altered mental status and delirium. Patient will be admitted to the ICU for evaluation and monitoring of vital signs Admitted Undiagnosed new problem with uncertain prognosis? @ -no Drug Therapy requiring intensive monitoring for toxicity (Heparin, Nitro, Insulin, Cardizem)? @ -no Were any procedures done? @ -no Diagnosis/symptom? @ -Shock, renal failure, altered mental status, back pain Acute, or Chronic, or Acute on Chronic? @ -Acute Uncomplicated (without systemic symptoms) or Complicated (systemic symptoms)? @ -Complicated Side effects of treatment? @ -no Exacerbation, Progression, or Severe Exacerbation? @ -exacerbation Poses a threat to life or bodily function? How? (Chest pain, USA, VA, pneumonia, PE, COPD, DKA, ARF, appy, cholecystitis, CVA, Diverticulitis, Homicidal, Suicidal, threat to staff... and all critical care pts) @ -yes with altered vital signs Reevaluation #5: Differential Altered Mental Status: Hypoglycemia, DKA, hypercapnia, ETOH, overdose, CO poisoning, trauma, myxedema coma, HTN encephalopathy, infection, encephalitis, psychosis, intercranial hemorrhage, hepatic encephalopathy, meningitis, CVA, this is not meant to be an all-inclusive list Differential Weakness: Hypoglycemia, shock, sepsis, hyponatremia, anemia, infection, VA, ETOH, adverse medicine reaction, overdose, stroke, this is not meant to be an all-inclusive list. Differential Back Pain: Strain, zoster, cauda equina syndrome, epidural abscess, vertebral osteomyelitis, discitis, fracture, subluxation, disc herniation, DJD, spinal stenosis, dissection, AAA, pancreatitis, peptic ulcer disease, pyelonephritis, kidney stone, this is not meant to be an all-inclusive list. - Consultations Consultation #1: Spoke with ICU who accepts the patient to the ICU Consultation #2: who agrees to admit this patient Procedures - Sepsis Sepsis Focused Exam #1 Time Sepsis Criteria Met: 20:00 Sepsis Focused Exam Date: 07/29/23 Sepsis Focused Exam Time: 23:55 Sepsis Focused Exam Complete: Yes Vital Signs & RN Notes Reviewed: Yes Capillary Refill: < 2 Seconds: Fingers, Toes Peripheral Pulses: Normal: Radial (R), Radial (L), Posterior Tibialis (R), Posterior Tibialis (L), Dorsalis Pedis (R), Dorsalis Pedis (L) Skin Color: Ashen Respiratory Exam: respiratory distress, rales, rhonchi Cardiovascular Exam: regular rate Medical Decision Making - Medical Decision Making 63 female to ER for evaluation of back pain which does appear to have significant altered vital signs including low blood pressure elevated heart rate and significant abnormal lab values. Patient has new onset renal failure and significant altered mental status and delirium. Patient will be admitted to the ICU for evaluation and monitoring of vital signs - Lab Data Result diagrams: 07/31/23 09:01 07/31/23 17:17 Lab Results 07/29/23 07/29/23 07/29/23 Range/Units 16:44 16:44 16:44 WBC 1.0 L* (3.8-10.6) k/uL RBC 2.53 L (3.80-5.40) m/uL Hgb 9.1 L (11.4-16.0) gm/dL Hct 27.8 L (34.0-46.0) % MCV 109.6 H (80.0-100.0) fL MCH 35.9 H (25.0-35.0) pg MCHC 32.7 (31.0-37.0) g/dL RDW 16.3 H (11.5-15.5) % Plt Count 153 (150-450) k/uL MPV 9.0 Neutrophils % (Manual) 35 % Band Neuts % (Manual) 26 % Lymphocytes % (Manual) 11 % Monocytes % (Manual) 3 % Metamyelocytes % 17 % Myelocytes % 8 % Neutrophils # (Manual) 0.60 L (1.3-7.7) k/uL Lymphocytes # (Manual) 0.11 L (1.0-4.8) k/uL Monocytes # (Manual) 0.03 (0-1.0) k/uL Metamyelocytes # (Man) 0.17 H (0) k/uL Myelocytes # (Manual) 0.08 H (0) k/uL Nucleated RBCs 2 H (0-0) /100 WBC Manual Slide Review Performed Large Platelets Present Polychromasia Present Anisocytosis Slight Macrocytosis Marked A PT 13.6 H (10.0-12.5) sec INR 1.3 H (<1.2) APTT 31.2 H (22.0-30.0) sec D-Dimer 3.32 H (<0.60) mg/L FEU VBG pH (7.31-7.41) VBG pCO2 (37-51) mmHg VBG HCO3 (24-28) mmol/L Sodium (137-145) mmol/L Potassium (3.5-5.1) mmol/L Chloride (98-107) mmol/L Carbon Dioxide (22-30) mmol/L Anion Gap mmol/L BUN (7-17) mg/dL Creatinine (0.52-1.04) mg/dL Est GFR (CKD-EPI)AfAm (>60 ml/min/1.73 sqM) Est GFR (CKD-EPI)NonAf (>60 ml/min/1.73 sqM) Glucose (74-99) mg/dL Osmolality (275-295) mOsm/kg Lactic Ac Sepsis Rflx Plasma Lactic Acid [place] (0.7-2.0) mmol/L Calcium (8.4-10.2) mg/dL Phosphorus (2.5-4.5) mg/dL Magnesium (1.6-2.3) mg/dL Total Bilirubin (0.2-1.3) mg/dL AST (14-36) U/L ALT (4-34) U/L Alkaline Phosphatase (38-126) U/L Creatine Kinase (30-135) U/L Troponin I (0.000-0.034) ng/mL Total Protein (6.3-8.2) g/dL Albumin (3.5-5.0) g/dL Urine Color Yellow Urine Appearance Cloudy H (Clear) Urine pH 5.5 (5.0-8.0) Ur Specific [place] 1.014 (1.001-1.035) Urine Protein 1+ H (Negative) Urine Glucose (UA) Negative (Negative) Urine Ketones Negative (Negative) Urine Blood Trace H (Negative) Urine Nitrite Negative (Negative) Urine Bilirubin Negative (Negative) Urine Urobilinogen <2.0 (<2.0) mg/dL Ur Leukocyte Esterase Negative (Negative) Urine RBC 1 (0-5) /hpf Urine WBC 22 H (0-5) /hpf Urine Bacteria Rare H (None) /hpf Hyaline Casts 63 H (0-2) /lpf Urine Mucus Occasional H (None) /hpf Urine Osmolality (400-1100) mOsm/kg Ur Random Sodium (40-220) mmol/L Urine Opiates Screen (NotDetected) Ur Oxycodone Screen (NotDetected) Urine Methadone Screen (NotDetected) Ur Barbiturates Screen (NotDetected) U Tricyclic Antidepress (NotDetected) Ur Phencyclidine Scrn (NotDetected) Ur Amphetamines Screen (NotDetected) U Methamphetamines Scrn (NotDetected) U Benzodiazepines Scrn (NotDetected) Urine Cocaine Screen (NotDetected) U Marijuana (THC) Screen (NotDetected) Serum Alcohol mg/dL Acetone, Qual (Negative) 07/29/23 07/29/23 07/29/23 Range/Units 16:44 16:44 16:44 WBC (3.8-10.6) k/uL RBC (3.80-5.40) m/uL Hgb (11.4-16.0) gm/dL Hct (34.0-46.0) % MCV (80.0-100.0) fL MCH (25.0-35.0) pg MCHC (31.0-37.0) g/dL RDW (11.5-15.5) % Plt Count (150-450) k/uL MPV Neutrophils % (Manual) % Band Neuts % (Manual) % Lymphocytes % (Manual) % Monocytes % (Manual) % Metamyelocytes % % Myelocytes % % Neutrophils # (Manual) (1.3-7.7) k/uL Lymphocytes # (Manual) (1.0-4.8) k/uL Monocytes # (Manual) (0-1.0) k/uL Metamyelocytes # (Man) (0) k/uL Myelocytes # (Manual) (0) k/uL Nucleated RBCs (0-0) /100 WBC Manual Slide Review Large Platelets Polychromasia Anisocytosis Macrocytosis PT (10.0-12.5) sec INR (<1.2) APTT (22.0-30.0) sec D-Dimer (<0.60) mg/L FEU VBG pH (7.31-7.41) VBG pCO2 (37-51) mmHg VBG HCO3 (24-28) mmol/L Sodium 129 L (137-145) mmol/L Potassium 5.6 H (3.5-5.1) mmol/L Chloride 101 (98-107) mmol/L Carbon Dioxide 8 L* (22-30) mmol/L Anion Gap 20 mmol/L BUN 68 H (7-17) mg/dL Creatinine 5.13 H (0.52-1.04) mg/dL Est GFR (CKD-EPI)AfAm 10 (>60 ml/min/1.73 sqM) Est GFR (CKD-EPI)NonAf 8 (>60 ml/min/1.73 sqM) Glucose 101 H (74-99) mg/dL Osmolality (275-295) mOsm/kg Lactic Ac Sepsis Rflx Plasma Lactic Acid [place] 2.5 H* (0.7-2.0) mmol/L Calcium 9.0 (8.4-10.2) mg/dL Phosphorus 8.1 H (2.5-4.5) mg/dL Magnesium 1.4 L (1.6-2.3) mg/dL Total Bilirubin 0.4 (0.2-1.3) mg/dL AST 71 H (14-36) U/L ALT 110 H (4-34) U/L Alkaline Phosphatase 151 H (38-126) U/L Creatine Kinase (30-135) U/L Troponin I <0.012 (0.000-0.034) ng/mL Total Protein 7.4 (6.3-8.2) g/dL Albumin 3.1 L (3.5-5.0) g/dL Urine Color Urine Appearance (Clear) Urine pH (5.0-8.0) Ur Specific [place] (1.001-1.035) Urine Protein (Negative) Urine Glucose (UA) (Negative) Urine Ketones (Negative) Urine Blood (Negative) Urine Nitrite (Negative) Urine Bilirubin (Negative) Urine Urobilinogen (<2.0) mg/dL Ur Leukocyte Esterase (Negative) Urine RBC (0-5) /hpf Urine WBC (0-5) /hpf Urine Bacteria (None) /hpf Hyaline Casts (0-2) /lpf Urine Mucus (None) /hpf Urine Osmolality (400-1100) mOsm/kg Ur Random Sodium (40-220) mmol/L Urine Opiates Screen (NotDetected) Ur Oxycodone Screen (NotDetected) Urine Methadone Screen (NotDetected) Ur Barbiturates Screen (NotDetected) U Tricyclic Antidepress (NotDetected) Ur Phencyclidine Scrn (NotDetected) Ur Amphetamines Screen (NotDetected) U Methamphetamines Scrn (NotDetected) U Benzodiazepines Scrn (NotDetected) Urine Cocaine Screen (NotDetected) U Marijuana (THC) Screen (NotDetected) Serum Alcohol mg/dL Acetone, Qual (Negative) 07/29/23 07/29/23 07/29/23 Range/Units 17:38 18:50 18:50 WBC (3.8-10.6) k/uL RBC (3.80-5.40) m/uL Hgb (11.4-16.0) gm/dL Hct (34.0-46.0) % MCV (80.0-100.0) fL MCH (25.0-35.0) pg MCHC (31.0-37.0) g/dL RDW (11.5-15.5) % Plt Count (150-450) k/uL MPV Neutrophils % (Manual) % Band Neuts % (Manual) % Lymphocytes % (Manual) % Monocytes % (Manual) % Metamyelocytes % % Myelocytes % % Neutrophils # (Manual) (1.3-7.7) k/uL Lymphocytes # (Manual) (1.0-4.8) k/uL Monocytes # (Manual) (0-1.0) k/uL Metamyelocytes # (Man) (0) k/uL Myelocytes # (Manual) (0) k/uL Nucleated RBCs (0-0) /100 WBC Manual Slide Review Large Platelets Polychromasia Anisocytosis Macrocytosis PT (10.0-12.5) sec INR (<1.2) APTT (22.0-30.0) sec D-Dimer (<0.60) mg/L FEU VBG pH (7.31-7.41) VBG pCO2 (37-51) mmHg VBG HCO3 (24-28) mmol/L Sodium (137-145) mmol/L Potassium (3.5-5.1) mmol/L Chloride (98-107) mmol/L Carbon Dioxide (22-30) mmol/L Anion Gap mmol/L BUN (7-17) mg/dL Creatinine (0.52-1.04) mg/dL Est GFR (CKD-EPI)AfAm (>60 ml/min/1.73 sqM) Est GFR (CKD-EPI)NonAf (>60 ml/min/1.73 sqM) Glucose (74-99) mg/dL Osmolality 296 H (275-295) mOsm/kg Lactic Ac Sepsis Rflx Y Plasma Lactic Acid [place] (0.7-2.0) mmol/L Calcium (8.4-10.2) mg/dL Phosphorus (2.5-4.5) mg/dL Magnesium (1.6-2.3) mg/dL Total Bilirubin (0.2-1.3) mg/dL AST (14-36) U/L ALT (4-34) U/L Alkaline Phosphatase (38-126) U/L Creatine Kinase (30-135) U/L Troponin I (0.000-0.034) ng/mL Total Protein (6.3-8.2) g/dL Albumin (3.5-5.0) g/dL Urine Color Urine Appearance (Clear) Urine pH (5.0-8.0) Ur Specific [place] (1.001-1.035) Urine Protein (Negative) Urine Glucose (UA) (Negative) Urine Ketones (Negative) Urine Blood (Negative) Urine Nitrite (Negative) Urine Bilirubin (Negative) Urine Urobilinogen (<2.0) mg/dL Ur Leukocyte Esterase (Negative) Urine RBC (0-5) /hpf Urine WBC (0-5) /hpf Urine Bacteria (None) /hpf Hyaline Casts (0-2) /lpf Urine Mucus (None) /hpf Urine Osmolality 289 L (400-1100) mOsm/kg Ur Random Sodium (40-220) mmol/L Urine Opiates Screen (NotDetected) Ur Oxycodone Screen (NotDetected) Urine Methadone Screen (NotDetected) Ur Barbiturates Screen (NotDetected) U Tricyclic Antidepress (NotDetected) Ur Phencyclidine Scrn (NotDetected) Ur Amphetamines Screen (NotDetected) U Methamphetamines Scrn (NotDetected) U Benzodiazepines Scrn (NotDetected) Urine Cocaine Screen (NotDetected) U Marijuana (THC) Screen (NotDetected) Serum Alcohol mg/dL Acetone, Qual (Negative) 07/29/23 07/29/23 07/29/23 Range/Units 18:50 19:15 19:46 WBC (3.8-10.6) k/uL RBC (3.80-5.40) m/uL Hgb (11.4-16.0) gm/dL Hct (34.0-46.0) % MCV (80.0-100.0) fL MCH (25.0-35.0) pg MCHC (31.0-37.0) g/dL RDW (11.5-15.5) % Plt Count (150-450) k/uL MPV Neutrophils % (Manual) % Band Neuts % (Manual) % Lymphocytes % (Manual) % Monocytes % (Manual) % Metamyelocytes % % Myelocytes % % Neutrophils # (Manual) (1.3-7.7) k/uL Lymphocytes # (Manual) (1.0-4.8) k/uL Monocytes # (Manual) (0-1.0) k/uL Metamyelocytes # (Man) (0) k/uL Myelocytes # (Manual) (0) k/uL Nucleated RBCs (0-0) /100 WBC Manual Slide Review Large Platelets Polychromasia Anisocytosis Macrocytosis PT (10.0-12.5) sec INR (<1.2) APTT (22.0-30.0) sec D-Dimer (<0.60) mg/L FEU VBG pH 7.16 L* (7.31-7.41) VBG pCO2 34 L (37-51) mmHg VBG HCO3 12 L (24-28) mmol/L Sodium (137-145) mmol/L Potassium (3.5-5.1) mmol/L Chloride (98-107) mmol/L Carbon Dioxide (22-30) mmol/L Anion Gap mmol/L BUN (7-17) mg/dL Creatinine (0.52-1.04) mg/dL Est GFR (CKD-EPI)AfAm (>60 ml/min/1.73 sqM) Est GFR (CKD-EPI)NonAf (>60 ml/min/1.73 sqM) Glucose (74-99) mg/dL Osmolality (275-295) mOsm/kg Lactic Ac Sepsis Rflx Plasma Lactic Acid [place] (0.7-2.0) mmol/L Calcium (8.4-10.2) mg/dL Phosphorus (2.5-4.5) mg/dL Magnesium (1.6-2.3) mg/dL Total Bilirubin (0.2-1.3) mg/dL AST (14-36) U/L ALT (4-34) U/L Alkaline Phosphatase (38-126) U/L Creatine Kinase (30-135) U/L Troponin I (0.000-0.034) ng/mL Total Protein (6.3-8.2) g/dL Albumin (3.5-5.0) g/dL Urine Color Urine Appearance (Clear) Urine pH (5.0-8.0) Ur Specific [place] (1.001-1.035) Urine Protein (Negative) Urine Glucose (UA) (Negative) Urine Ketones (Negative) Urine Blood (Negative) Urine Nitrite (Negative) Urine Bilirubin (Negative) Urine Urobilinogen (<2.0) mg/dL Ur Leukocyte Esterase (Negative) Urine RBC (0-5) /hpf Urine WBC (0-5) /hpf Urine Bacteria (None) /hpf Hyaline Casts (0-2) /lpf Urine Mucus (None) /hpf Urine Osmolality (400-1100) mOsm/kg Ur Random Sodium 53 (40-220) mmol/L Urine Opiates Screen Not Detected (NotDetected) Ur Oxycodone Screen Not Detected (NotDetected) Urine Methadone Screen Not Detected (NotDetected) Ur Barbiturates Screen Not Detected (NotDetected) U Tricyclic Antidepress Detected H (NotDetected) Ur Phencyclidine Scrn Not Detected (NotDetected) Ur Amphetamines Screen Not Detected (NotDetected) U Methamphetamines Scrn Not Detected (NotDetected) U Benzodiazepines Scrn Detected H (NotDetected) Urine Cocaine Screen Not Detected (NotDetected) U Marijuana (THC) Screen Not Detected (NotDetected) Serum Alcohol mg/dL Acetone, Qual (Negative) 07/29/23 07/29/23 07/29/23 Range/Units 19:46 19:46 19:46 WBC (3.8-10.6) k/uL RBC (3.80-5.40) m/uL Hgb (11.4-16.0) gm/dL Hct (34.0-46.0) % MCV (80.0-100.0) fL MCH (25.0-35.0) pg MCHC (31.0-37.0) g/dL RDW (11.5-15.5) % Plt Count (150-450) k/uL MPV Neutrophils % (Manual) % Band Neuts % (Manual) % Lymphocytes % (Manual) % Monocytes % (Manual) % Metamyelocytes % % Myelocytes % % Neutrophils # (Manual) (1.3-7.7) k/uL Lymphocytes # (Manual) (1.0-4.8) k/uL Monocytes # (Manual) (0-1.0) k/uL Metamyelocytes # (Man) (0) k/uL Myelocytes # (Manual) (0) k/uL Nucleated RBCs (0-0) /100 WBC Manual Slide Review Large Platelets Polychromasia Anisocytosis Macrocytosis PT (10.0-12.5) sec INR (<1.2) APTT (22.0-30.0) sec D-Dimer (<0.60) mg/L FEU VBG pH (7.31-7.41) VBG pCO2 (37-51) mmHg VBG HCO3 (24-28) mmol/L Sodium (137-145) mmol/L Potassium (3.5-5.1) mmol/L Chloride (98-107) mmol/L Carbon Dioxide (22-30) mmol/L Anion Gap mmol/L BUN (7-17) mg/dL Creatinine (0.52-1.04) mg/dL Est GFR (CKD-EPI)AfAm (>60 ml/min/1.73 sqM) Est GFR (CKD-EPI)NonAf (>60 ml/min/1.73 sqM) Glucose (74-99) mg/dL Osmolality (275-295) mOsm/kg Lactic Ac Sepsis Rflx Plasma Lactic Acid [place] 1.7 (0.7-2.0) mmol/L Calcium (8.4-10.2) mg/dL Phosphorus (2.5-4.5) mg/dL Magnesium (1.6-2.3) mg/dL Total Bilirubin (0.2-1.3) mg/dL AST (14-36) U/L ALT (4-34) U/L Alkaline Phosphatase (38-126) U/L Creatine Kinase 33 (30-135) U/L Troponin I (0.000-0.034) ng/mL Total Protein (6.3-8.2) g/dL Albumin (3.5-5.0) g/dL Urine Color Urine Appearance (Clear) Urine pH (5.0-8.0) Ur Specific [place] (1.001-1.035) Urine Protein (Negative) Urine Glucose (UA) (Negative) Urine Ketones (Negative) Urine Blood (Negative) Urine Nitrite (Negative) Urine Bilirubin (Negative) Urine Urobilinogen (<2.0) mg/dL Ur Leukocyte Esterase (Negative) Urine RBC (0-5) /hpf Urine WBC (0-5) /hpf Urine Bacteria (None) /hpf Hyaline Casts (0-2) /lpf Urine Mucus (None) /hpf Urine Osmolality (400-1100) mOsm/kg Ur Random Sodium (40-220) mmol/L Urine Opiates Screen (NotDetected) Ur Oxycodone Screen (NotDetected) Urine Methadone Screen (NotDetected) Ur Barbiturates Screen (NotDetected) U Tricyclic Antidepress (NotDetected) Ur Phencyclidine Scrn (NotDetected) Ur Amphetamines Screen (NotDetected) U Methamphetamines Scrn (NotDetected) U Benzodiazepines Scrn (NotDetected) Urine Cocaine Screen (NotDetected) U Marijuana (THC) Screen (NotDetected) Serum Alcohol <10 mg/dL Acetone, Qual Negative (Negative) - EKG Data -: EKG Interpreted by Me (EKG is sinus tachycardia 122 KS 160 QRS 101 QTc 354) - Radiology Data Radiology results: report reviewed (CT brain C-spine chest and pelvis negative for acute disease), image reviewed Critical Care Time Critical Care Time: Yes Total Critical Care Time: 31 Disposition Clinical Impression: Acute kidney injury, Pancytopenia, Gram-negative bacteremia, Psychosis, Shock, Mechanical back pain Disposition: ADMITTED IP TO THIS HOSP Condition: Serious Is patient prescribed a controlled substance at d/c from ED?: No
[2023-07-29] MEDS: SODIUM CHLORIDE 0.9% 1,000 ML IV STA ×3 (16:57→19:11)
[2023-07-29] MEDS: SODIUM CHLORIDE 0.9% 500 ML 500 ML IV STA (16:58)
[2023-07-29 17:23] LABS: Anisocytosis Slight; HCT 27.8 % (34.0-46.0); HGB 9.1 gm/dL (11.4-16.0); INR 1.3 (<1.2); MCH 35.9 pg (25.0-35.0); MCHC 32.7 g/dL (31.0-37.0); MCV 109.6 fL (80.0-100.0); Macrocytosis Marked; Partial Thromboplastin Time 31.2 sec (22.0-30.0); Platelet Count 153 k/uL (150-450); Prothrombin Time 13.6 sec (10.0-12.5); RBC 2.53 m/uL (3.80-5.40); RDW 16.3 % (11.5-15.5)
[2023-07-29 17:26] LABS: ALT 110 U/L (4-34); AST 71 U/L (14-36); African American GFR (CKD) 10 (>60 ml/min/1.73 sqM); Albumin 3.1 g/dL (3.5-5.0); Alkaline Phosphatase 151 U/L (38-126); Anion Gap 20 mmol/L; Blood Urea Nitrogen 68 mg/dL (7-17); Chloride 101 mmol/L (98-107); Glucose 101 mg/dL (74-99); Magnesium 1.4 mg/dL (1.6-2.3); Non-African American GFR(CKD) 8 (>60 ml/min/1.73 sqM); Phosphorus 8.1 mg/dL (2.5-4.5); Potassium 5.6 mmol/L (3.5-5.1); Sodium 129 mmol/L (137-145); Total Bilirubin 0.4 mg/dL (0.2-1.3); Total Protein 7.4 g/dL (6.3-8.2)
[2023-07-29 17:37] LABS: Carbon Dioxide 8 mmol/L (22-30)
[2023-07-29 18:00] LABS: Neutrophils % (M) 35 %
[2023-07-29 18:03] LABS: Band Neutrophils % 26 %; Lymphocytes # (M) 0.11 k/uL (1.0-4.8); Metamyelocytes # (M) 0.17 k/uL (0); Metamyelocytes % 17 %; Monocytes # (M) 0.03 k/uL (0-1.0); Myelocytes # (M) 0.08 k/uL (0); Myelocytes % 8 %; Nucleated Red Blood Cells 2 /100 WBC (0-0); Polychromasia Present; Total Cells Counted 100
[2023-07-29 18:05] LABS: Large Platelets Present
[2023-07-29] MEDS: ONDANSETRON 4 MG/2 ML VIAL IVP STA (18:23)
[2023-07-29] MEDS: fentaNYL (PF) 50 MCG/ML 2 ML AMP IV STA (18:30)
[2023-07-29 18:47] LABS: Appearance,Urine Cloudy (Clear); Bacteria,Urine Rare /hpf; Bilirubin,Urine Negative (Negative); Blood,Urine Trace (Negative); Color,Urine Yellow; Glucose,Urine (UA) Negative (Negative); Hyaline Casts,Urine 63 /lpf (0-2); Ketones,Urine Negative (Negative); Leukocyte Esterase,Urine Negative (Negative); Mucus,Urine Occasional /hpf; Nitrite,Urine Negative (Negative); PH, Urine 5.5 (5.0-8.0); Protein,Urine 1+ (Negative); RBC,Urine 1 /hpf (0-5); Specific Gravity,Urine 1.014 (1.001-1.035); Urobilinogen,Urine <2.0 mg/dL (<2.0); WBC,Urine 22 /hpf (0-5)
[2023-07-29] MEDS: DEXTROSE 5% IN WATER 1,000 ML with SODIUM BICARB (1 MEQ/ML) 150 ML IV ONE (19:12)
--- NOTE | 2023-07-29 19:17 | CT ---
EXAMINATION TYPE: CT brain cspine wo con CT DLP: 1397.9 mGycm, Automated exposure control for dose reduction was used. DATE OF EXAM: 07/29/2023 6:28 PM COMPARISON: None. CLINICAL INDICATION:Female, 63 years old with history of weak; weakness, multiple falls, dizziness TECHNIQUE: Brain: Multiple axial CT images of the brain were obtained without IV contrast. Cspine: Axial CT images from the skull base to the inferior aspect of T2 we obtained without intraven ous contrast. Coronal and sagittal reformatted images were also reviewed. FINDINGS: Brain: Extra-axial spaces: No abnormal extra-axial fluid collections. Ventricular system: Within normal limits. Cerebral parenchyma: No increased attenuation to suggest acute intraparenchymal hemorrhage. The gra y-white matter interface appears maintained. No significant atrophy. White matter unremarkable by C T. Cerebellum: No acute abnormality. Mass effect: No evidence of mass effect or midline shift. Intracranial vasculature: Unremarkable Soft tissues: Normal. Visualized orbits: Orbital contents appear grossly intact. Calvarium/osseous structures: No evidence of calvarial fracture. Paranasal sinuses and mastoid air cells: Clear. MRI is more sensitive for detecting acute processes such as infarct, and may be considered if clinica lly warranted. Cervical spine: Fracture: None seen. Osseous structures, spinal canal/neural foramina: Generally mild diffuse degenerative changes, greate st at C6-C7 where disc marginal osteophytes and uncovertebral joint changes cause moderate to severe left neural foraminal stenosis, moderate canal and right neural foraminal stenosis. Vertebral alignment: No traumatic malalignment. Overall straightening of the normal cervical lordosis with mild reversal from C4 through C7. Neck soft tissues: No acute finding.. Airway is patent. Other: Lung apices show no acute infiltrate or pneumothorax. Mild emphysematous changes and scarring . Heterogenous debris in a mildly prominent upper thoracic esophagus. IMPRESSION: CT head: 1. No acute intracranial CT abnormality. CT cervical spine: 1. No evidence of acute cervical spine fracture or traumatic malalignment. 2. Generally mild cervical spondylosis, most progressed at C6-C7.
[2023-07-29 19:30] LABS: Amphetamine Screen,Urine Not Detected (NotDetected); Barbiturate Screen,Urine Not Detected (NotDetected); Benzodiazepines Screen,Urine Detected (NotDetected); Cocaine Screen,Urine Not Detected (NotDetected); Methadone Screen, Urine Not Detected (NotDetected); Opiate Screen,Urine Not Detected (NotDetected); Oxycodone Screen, Urine Not Detected (NotDetected); Phencyclidine Screen,Urine Not Detected (NotDetected); Tricyclic Antidepressant,Urine Detected (NotDetected); Urn Cannabinoid Scrn Not Detected (NotDetected)
[2023-07-29] MEDS ORDERED: NALOXONE 0.4 MG/ML 1 ML VIAL IV PRN (20:07)
[2023-07-29] MEDS ORDERED: VANCOMYCIN IV PER PHARMACY 1 EACH MISC MISCELLANE PRN (20:14)
[2023-07-29 20:15] LABS: VBG PH 7.16 (7.31-7.41)
--- NOTE | 2023-07-29 20:19 | CT ---
EXAMINATION TYPE: CT ChestAbdPelvis wo con CT DLP: 642.3 mGycm, Automated exposure control for dose reduction was used. DATE OF EXAM: 07/29/2023 6:28 PM COMPARISON: None. CLINICAL INDICATION:Female, 63 years old with history of pain; PHH, multiple falls, back pain TECHNIQUE: Multiple axial images of the chest, abdomen, and pelvis were obtained. Two-dimensional cor onal and sagittal reconstructions were obtained. Contrast used: mL of , none Oral contrast used: without Oral Contrast FINDINGS: Exam is limited without contrast. CHEST: LUNGS/ PLEURA: Mild bilateral emphysematous changes, mostly at the lung apices. Scattered scarring. M ild dependent opacities in the lungs consistent with atelectasis. No consolidation, pleural effusion, or pneumothorax. AIRWAY: Central airways are patent. LOWER NECK: No significant findings. MEDIASTINUM: No gross evidence of adenopathy. Mildly patulous appearance of the esophagus with small amount of debris in the upper esophagus near the level of the lung apices. HEART: Mild cardiomegaly. Mild to moderate coronary artery calcification and/or stents. Small to mode rate pericardial effusion is present up to about 4 or 5 mm in greatest thickness. VASCULATURE: Mild atherosclerotic calcifications of the aorta and branches. Ascending aorta is about 3 CM, descending is about 2.3 CM. Pulmonary trunk measures up to 2.8 CM. Pulmonary trunk is within n ormal limits in size. Vessels otherwise not well evaluated without contrast. SOFT TISSUES/LYMPH NODES: Right breast prepectoral implant is present with hyperdense margin suggesti ng calcification. Appearance also suggests the possibility of intracapsular rupture. There is also an amorphous structure of increased attenuation in the prepectoral region on the left, likely a failed/ collapsed breast implant. No enlarged axillary nodes. MUSCULOSKELETAL: Osseous structures appear somewhat demineralized. A slight step-off appearance of th e inferior sternal body on sagittal imaging is judged likely reconstruction artifact from motion, rat her than a fracture; this can be correlated clinically. No other discrete fractures are otherwise seen. There are mild degenerative changes throughout the sp ine. Deformity of the superior endplate of L3 with mild superior endplate depression compatible with Schmorl's node, favored to be nonacute without acute fracture lucency seen. However this could be cor related clinically, with MRI considered if there is persistent concern for acute process in the spine . OTHER: Coarse benign-appearing calcification in the left breast. ABDOMEN PELVIS: Limitation by streak artifact resulting from the patient's arms. ABDOMEN LIVER: A couple tiny hypodensities are suggested in the left hepatic lobe, not fully characterized bu t in absence of a cancer history are statistically likely benign. GALLBLADDER AND BILE DUCTS: The gallbladder is surgically absent. Nondilated biliary tree PANCREAS: Unremarkable. SPLEEN: Unremarkable. ADRENAL GLANDS: Mildly thickened, this can be seen with hyperplasia.. KIDNEYS AND URETERS: Kidneys are symmetric in size. No renal calculi. Mildly prominent right extraren al pelvis without dilated ureter seen. On the left, no ureteral calculi or dilated ureter seen. PELVIS BLADDER: Nondistended, grossly unremarkable. Pelvic phleboliths are present. REPRODUCTIVE: Uterus and ovaries appear present, grossly unremarkable by CT. ABDOMEN & PELVIS STOMACH AND BOWEL: Stomach and small bowel are nondistended, there is no evidence of small bowel obst ruction. Postoperative changes of the small bowel with anastomosis noted in the right mid abdomen. Th e ileocecal valve shows prominent fatty infiltration. Some mild fat deposition in the wall of the asc ending colon is also present, this could be sequela of previous colitis. Appendix is not seen with ce rtainty, however there is no inflammatory process in the right lower quadrant to suggest appendicitis . There are a few punctate foci of apparently intraluminal increased attenuation in the ascending col on. The more distal colon appears nondistended and not well assessed however there is no clear eviden ce of an acute abnormality. A few small radiodense nodules in the pericolonic fat in the sigmoid claudia on may be sequela of previous calcified granulomatous disease. PERITONEUM/RETROPERITONEUM: No evidence of free fluid or free air in the abdomen. Small amount of dottie e pelvic fluid is suggested. VASCULATURE: Moderate atherosclerotic calcifications are present throughout the abdominal aorta and i ts branches. No AAA. MUSCULOSKELETAL: Osseous structures appear somewhat demineralized. A slight step-off appearance of th e inferior sternal body on sagittal imaging is judged likely reconstruction artifact from motion, rat her than a fracture; this can be correlated clinically. No other fractures are otherwise seen. There are mild degenerative changes throughout the spine. Defo rmity of the superior endplate of L3 with mild superior endplate depression compatible with Schmorl's node, favored to be nonacute without acute fracture lucency seen. However this could be correlated c linically, with MRI considered if there is persistent concern for acute process in the spine. LYMPH NODES: Nodular conglomerate in the subcutaneous fat right inguinal region with the largest comp onent measuring 20 x 20 mm, this is likely adenopathy. Nonenlarged nodes are seen on the left. Otherw ise no enlarged intrapelvic or intra-abdominal nodes. SOFT TISSUES/ABDOMINAL WALL: No acute abnormality. OTHER: No other significant finding. IMPRESSION: 1. Limited unenhanced study. 2. No acute abnormality demonstrated, in the limits of noncontrast exam. 3. Small to moderate pericardial effusion. 4. Nonspecific right inguinal adenopathy. 5. Other chronic and likely incidental findings as above.
[2023-07-29 20:27] LABS: Alcohol <10 mg/dL
[2023-07-29] MEDS: PIPERACILLIN-TAZOBACTAM 3.375 GM in SODIUM CHLORIDE 0.9% 100 ML IVPB STA (21:26)
[2023-07-29] MEDS: DEXTROSE 5% IN WATER 1,000 ML with SODIUM BICARB (1 MEQ/ML) 150 ML IV SCH (21:26)
[2023-07-29 22:38] LABS: Glucose,Whole Blood 118 mg/dL (70-110)
[2023-07-29] MEDS: VANCOMYCIN 1,250 MG in SODIUM CHLORIDE 0.9% 250 ML IVPB ONE (23:06)
[2023-07-29] MEDS: SODIUM CHLORIDE 0.9% 1,000 ML IV ONE (23:44)
--- NOTE | 2023-07-30 01:08 | P.HPIM ---
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 She denies any falls or direct injuries to her lower back she does report long history of chronic low back pain. Otherwise denies any fevers chills sore throat cough chest pain trouble breathing nausea vomiting abdominal pain GI bleeding However upon initial evaluation in the ED she seemed to be very unstable with low blood pressure and tachycardia her blood work came back showing multi organ failure for which patient was aggressively resuscitated in the ED with IV fluid hydration and was started on empiric antibiotics and admitted to the ICU Patient denies tobacco smoking illicit drugs or heavy alcohol She reports recent history since May 2023 where she was diagnosed with pulmonary embolism she does not know what was the precipitating factor for which she is currently on Eliquis. She also had multiple colonoscopies since the beginning of the year and was diagnosed with multiple polyps however she denies any diagnosis of cancer review of systems Pertinent positives as noted in HPI. All other systems were reviewed and are negative on exam Constitutional: Patient seems very uncomfortable with severe low back pain Eyes: Anicteric sclerae, moist conjunctiva, Pupils equal round reactive to light ENMT: NC/AT Oropharynx clear, no erythema, or exudates Neck: Supple, no masses, or JVD No carotid bruits No thyromegaly Lungs: Clear to auscultation Clear to percussion Normal respiratory effort, no accessory muscle use Cardiovascular: Heart regular in rate and rhythm, No murmurs, gallops, or rubs No peripheral edema Abdominal: Soft Nontender, no guarding, rebound or rigidity Abdomen moving with respiration Normoactive bowel sounds No hepatomegaly, No splenomegaly Skin: Normal temperature, tone, texture, turgor No induration No subcutaneous nodules No rash, lesions No ulcers Extremities: No digital cyanosis No clubbing Pedal pulses intact and symmetrical Radial pulses intact and symmetrical No calf tenderness Psychiatric: Alert and oriented to person, place and time Appropriate affect fair judgement Neuro Muscles Strength 5/5 in bilateral upper extremities, low back pain limited lower extremity exam. No point tenderness over the spine, however significant paraspinal muscle spasm Sensation to light touch grossly present throughout Cranial nerves II-XII grossly intact Past Medical History Past Medical History: GERD/Reflux Additional Past Medical History / Comment(s): CHANGE IN BOWEL MOVEMENTS., HAVING PAIN IN STOMACH ,REFLUX WITH NAUSEA AND VOMITING. History of Any Multi-Drug Resistant Organisms: None Reported Past Surgical History: Appendectomy, Bowel Resection, Breast Surgery, Section, Cholecystectomy, Hernia Repair, Tubal Ligation Additional Past Surgical History / Comment(s): HERNIATED BOWEL REQUIRED BOWEL RESECTION., BREAST IMPLANTS, Pt. states "L breast imploded and the R implant needs to be removed. Past Anesthesia/Blood Transfusion Reactions: No Reported Reaction Additional Past Anesthesia/Blood Transfusion Reaction / Comment(s): HX OF BLOOD TRANSFUSION-NO REACTION Past Psychological History: Anxiety, Bipolar, Depression Smoking Status: Current every day smoker Past Alcohol Use History: None Reported Past Drug Use History: None Reported - Past Family History Mother Family Medical History: No Reported History Father Additional Family Medical History / Comment(s): COMMITTED SUICIDE AT AGE 28 Medications and Allergies Home Medications Medication Instructions Recorded Confirmed Type ALPRAZolam [Xanax] 1 mg PO TID PRN 05/25/22 07/29/23 History OXcarbazepine [Trileptal] 300 mg PO TID 05/25/22 07/29/23 History Apixaban [Eliquis] 5 mg PO BID 03/08/23 07/29/23 History Cyanocobalamin (Vitamin B-12) 1,000 mcg PO DAILY 03/08/23 07/29/23 History [Vitamin B-12] Ferrous Sulfate [Feosol] 325 mg PO DAILY 03/08/23 07/29/23 History Omeprazole 40 mg PO BID 03/08/23 07/29/23 History QUEtiapine [SEROquel] 1,200 mg PO HS 03/08/23 07/29/23 History methocarbamoL [Robaxin] 500 mg PO TID PRN 07/29/23 07/29/23 History Allergies Allergy/AdvReac Type Severity Reaction Status Date / Time No Known Allergies Allergy Verified 07/29/23 19:10 Physical Exam Vitals: Vital Signs Temp Pulse Resp BP Pulse Ox 07/29/23 21:46 98.2 F 07/29/23 21:30 133 H 22 83/67 95 07/29/23 21:00 130 H 20 89/69 93 L 07/29/23 20:45 129 H 24 99/77 96 07/29/23 20:30 124 H 23 75/53 100 07/29/23 20:00 124 H 18 84/52 99 07/29/23 19:30 121 H 30 H 82/49 97 07/29/23 19:00 122 H 19 79/50 96 07/29/23 18:45 124 H 18 79/54 94 L 07/29/23 18:24 122 H 18 74/54 98 07/29/23 18:00 120 H 18 81/46 96 07/29/23 17:00 124 H 24 75/46 98 07/29/23 16:45 124 H 24 73/48 98 07/29/23 16:02 98.1 F 67 18 98/57 99 Intake and Output 07/29/23 07/29/23 07/29/23 06:59 14:59 22:59 Other: Weight 70.307 kg Results CBC & Chem 7: 07/29/23 16:44 07/29/23 16:44 Labs: Abnormal Lab Results - Last 24 Hours (Table) 07/29/23 07/29/23 07/29/23 Range/Units 16:44 16:44 16:44 WBC 1.0 L* (3.8-10.6) k/uL RBC 2.53 L (3.80-5.40) m/uL Hgb 9.1 L (11.4-16.0) gm/dL Hct 27.8 L (34.0-46.0) % MCV 109.6 H (80.0-100.0) fL MCH 35.9 H (25.0-35.0) pg RDW 16.3 H (11.5-15.5) % Neutrophils # (Manual) 0.60 L (1.3-7.7) k/uL Lymphocytes # (Manual) 0.11 L (1.0-4.8) k/uL Metamyelocytes # (Man) 0.17 H (0) k/uL Myelocytes # (Manual) 0.08 H (0) k/uL Nucleated RBCs 2 H (0-0) /100 WBC Macrocytosis Marked A PT 13.6 H (10.0-12.5) sec INR 1.3 H (<1.2) APTT 31.2 H (22.0-30.0) sec D-Dimer 3.32 H (<0.60) mg/L FEU VBG pH (7.31-7.41) VBG pCO2 (37-51) mmHg VBG HCO3 (24-28) mmol/L Sodium (137-145) mmol/L Potassium (3.5-5.1) mmol/L Carbon Dioxide (22-30) mmol/L BUN (7-17) mg/dL Creatinine (0.52-1.04) mg/dL Glucose (74-99) mg/dL Plasma Lactic Acid [place] (0.7-2.0) mmol/L Phosphorus (2.5-4.5) mg/dL Magnesium (1.6-2.3) mg/dL AST (14-36) U/L ALT (4-34) U/L Alkaline Phosphatase (38-126) U/L Albumin (3.5-5.0) g/dL Urine Appearance Cloudy H (Clear) Urine Protein 1+ H (Negative) Urine Blood Trace H (Negative) Urine WBC 22 H (0-5) /hpf Urine Bacteria Rare H (None) /hpf Hyaline Casts 63 H (0-2) /lpf Urine Mucus Occasional H (None) /hpf U Tricyclic Antidepress (NotDetected) U Benzodiazepines Scrn (NotDetected) 07/29/23 07/29/23 07/29/23 Range/Units 16:44 16:44 19:15 WBC (3.8-10.6) k/uL RBC (3.80-5.40) m/uL Hgb (11.4-16.0) gm/dL Hct (34.0-46.0) % MCV (80.0-100.0) fL MCH (25.0-35.0) pg RDW (11.5-15.5) % Neutrophils # (Manual) (1.3-7.7) k/uL Lymphocytes # (Manual) (1.0-4.8) k/uL Metamyelocytes # (Man) (0) k/uL Myelocytes # (Manual) (0) k/uL Nucleated RBCs (0-0) /100 WBC Macrocytosis PT (10.0-12.5) sec INR (<1.2) APTT (22.0-30.0) sec D-Dimer (<0.60) mg/L FEU VBG pH (7.31-7.41) VBG pCO2 (37-51) mmHg VBG HCO3 (24-28) mmol/L Sodium 129 L (137-145) mmol/L Potassium 5.6 H (3.5-5.1) mmol/L Carbon Dioxide 8 L* (22-30) mmol/L BUN 68 H (7-17) mg/dL Creatinine 5.13 H (0.52-1.04) mg/dL Glucose 101 H (74-99) mg/dL Plasma Lactic Acid [place] 2.5 H* (0.7-2.0) mmol/L Phosphorus 8.1 H (2.5-4.5) mg/dL Magnesium 1.4 L (1.6-2.3) mg/dL AST 71 H (14-36) U/L ALT 110 H (4-34) U/L Alkaline Phosphatase 151 H (38-126) U/L Albumin 3.1 L (3.5-5.0) g/dL Urine Appearance (Clear) Urine Protein (Negative) Urine Blood (Negative) Urine WBC (0-5) /hpf Urine Bacteria (None) /hpf Hyaline Casts (0-2) /lpf Urine Mucus (None) /hpf U Tricyclic Antidepress Detected H (NotDetected) U Benzodiazepines Scrn Detected H (NotDetected) 07/29/23 Range/Units 19:46 WBC (3.8-10.6) k/uL RBC (3.80-5.40) m/uL Hgb (11.4-16.0) gm/dL Hct (34.0-46.0) % MCV (80.0-100.0) fL MCH (25.0-35.0) pg RDW (11.5-15.5) % Neutrophils # (Manual) (1.3-7.7) k/uL Lymphocytes # (Manual) (1.0-4.8) k/uL Metamyelocytes # (Man) (0) k/uL Myelocytes # (Manual) (0) k/uL Nucleated RBCs (0-0) /100 WBC Macrocytosis PT (10.0-12.5) sec INR (<1.2) APTT (22.0-30.0) sec D-Dimer (<0.60) mg/L FEU VBG pH 7.16 L* (7.31-7.41) VBG pCO2 34 L (37-51) mmHg VBG HCO3 12 L (24-28) mmol/L Sodium (137-145) mmol/L Potassium (3.5-5.1) mmol/L Carbon Dioxide (22-30) mmol/L BUN (7-17) mg/dL Creatinine (0.52-1.04) mg/dL Glucose (74-99) mg/dL Plasma Lactic Acid [place] (0.7-2.0) mmol/L Phosphorus (2.5-4.5) mg/dL Magnesium (1.6-2.3) mg/dL AST (14-36) U/L ALT (4-34) U/L Alkaline Phosphatase (38-126) U/L Albumin (3.5-5.0) g/dL Urine Appearance (Clear) Urine Protein (Negative) Urine Blood (Negative) Urine WBC (0-5) /hpf Urine Bacteria (None) /hpf Hyaline Casts (0-2) /lpf Urine Mucus (None) /hpf U Tricyclic Antidepress (NotDetected) U Benzodiazepines Scrn (NotDetected) Assessment and Plan Assessment: 63-year-old female with bipolar disorder, recent diagnosis of PE on Eliquis coming in for severe low back pain however found to be in multiorgan failure in the ED with unstable vital signs I discussed the case with ED doctor patient will be admitted to the ICU for close monitoring and supportive care due to suspected severe sepsis with refractory hypotension with anticipated length of stay more than 2 midnights Refractory hypotension rule out severe septic shock with multiorgan failure CT scan of the abdomen chest and pelvis and of the head showed no acute pathology. Showed some changes suggestive of mild to moderate pericardial effusion and possible right inguinal adenopathy Follow-up cultures Aggressive resuscitation patient status post 4 L boluses of normal saline with another 1 L scheduled Consider starting Levophed if she is not responding and her blood pressure is now improving ICU admission Follow-up cultures Urine analysis not suggestive of UTI Empiric treatment with vancomycin dosing by pharmacy and Zosyn 3.375 g IV piggyback every 8 hours Robaxin muscle relaxant as tolerated for back spasms Morphine IV push 4 mg as needed for severe pain White count is 1 Acute kidney injury nonoliguric Avoid nephrotoxic meds Avoid hypotension Continue with sodium bicarb 150 mill equivalent and a liter dextrose water, run and 80 cc/h Sodium 129 potassium 5.6 BUN 68 creatinine 5.13 Nephrology consult Monitor urine output Bicarbonate anion gap 20 Lactic acidosis 2.5 Bicytopenia White blood cells 1 with severe neutropenia Hemoglobin 9.1 patient seems to have chronic anemia this is around her baseline Denies any GI bleeding Continue to monitor closely Transaminitis AST 71 ALT 110 alkaline phosphatase 151 bilirubin normal 0.4 This could be secondary to hypotension No tenderness in the right upper quadrant upon exam CT scan of the abdomen showed no acute pathology around the liver Elevated D-dimer however due to ALEXANDRA patient could not have contrast for CTA However patient is anticoagulated with Eliquis for recent diagnosis of acute PE Mild to moderate pericardial effusion found on CT scan of the chest Troponin is negative EKG showed low-volume QRS Cardiology consult Check echocardiogram Urine drug screen positive for benzodiazepine and tricyclic antidepressant Serum alcohol less than 10 Full code DVT prophylaxis on Eliquis for recent diagnosis of PE 2 months ago GI prophylaxis with Protonix 40 mg p.o. twice daily
[2023-07-30] MEDS: NOREPINEPHRINE 4 MG in SODIUM CHLORIDE 0.9% 250 ML IV SCH (02:43)
--- NOTE | 2023-07-30 03:47 | P.CNPUL ---
History of Present Illness Consult date: 07/30/23 Requesting physician: Ruddy Gomez Reason for consult: other (Hypotension, requiring vasopressors, and admission to the ICU) Chief complaint: Back pain History of present illness: I am seeing this patient in consultation today 07/30/2023 in the intensive care unit after she was evaluated in the emergency department and found to be profoundly hypotensive, requiring multiple IV fluid boluses, and eventually vasopressors with admission to the ICU. She is a 63-year-old white female with past medical history significant for pulmonary embolism anticoagulated on Eliquis, GI bleed, GERD, prior appendectomy and cholecystectomy, anxiety, depression, bipolar disorder and current ongoing tobacco dependence. She presented the emergency room yesterday afternoon chiefly complaining of lower back pain that she states began after moving at the beginning of the month. She is technically a poor historian and is hard to elicit a story. She is somewhat altered. When asked directly, she does admit some generalized abdominal pain, nausea and vomiting, reduced appetite. She denies any diarrhea, constipation, acute blood loss, melena, hematemesis. A CT of the chest, abdomen, pelvis does not show any acute intra-abdominal abnormality. There was some nonspecific right inguinal adenopathy. Small to moderate pericardial effusion, and other incidental findings. No obstructive renal calculi. No significant hydronephrosis. CBC on arrival shows some severe leukopenia with a WBC count of 1, hemoglobin 9.1, hematocrit 27.8, platelets 153. BMP on arrival: Sodium 129, potassium 5.6, chloride 101, serum bicarb 8, BUN 68, creatinine 5.13, glucose 101. LFTs mildly elevated. Total bili 0.4. Lactic acid level 2.5 and is down to 1.7. D-dimer is elevated, however, pulmonary embolism is felt to be less likely as the patient is anticoagulated chronically on Eliquis and denies missing any dose. Troponin less than 0.012. CPK 33. Urinalysis shows protein with trace microscopic hematuria. Rare pyuria. No leukocytes or nitrates. Toxicology positive for TCAs and benzos. Serum alcohol less than 10. Patient is currently lying in bed, on room air, complaining of severe left lateral flank pain. She denies any numbness or tingling of the lower extremity. No weakness. No saddle anesthesia or bowel or bladder function loss. Her blood pressure remains hypotensive despite several fluid boluses, she has received a total of 3.5 L. Sodium bicarb is infusing at 80 MLS per hour. Norepinephrine is in the process of being started. Bedside monitor shows sinus tachycardia in the 120s. She has been covered on broad-spectrum antibiotics including Zosyn and Vanco. Blood cultures are pending. Prognosis is guarded. Review of Systems REVIEW OF SYSTEMS: CONSTITUTIONAL: Denies any recent significant weight loss or weight gain. EYES: Denies change in vision. EARS, NOSE, MOUTH, THROAT: Denies headaches, denies sore throat. CARDIOVASCULAR: Denies chest pain, palpitations or syncopal episodes. RESPIRATORY: Denies shortness of breath, cough, congestion or hemoptysis. GASTROINTESTINAL: See HPI GENITOURINARY: Denies hematuria, denies infections. MUSKULOSKELETAL: Admits back pain localized to the left lateral side INTEGUMENTARY: Denies rash, denies eczema. NEUROLOGICAL: Denies recent memory loss, no recent seizure activity. PSYCHIATRIC: Denies anxiety, denies depression. HEMATOLOGIC/LYMPHATIC: Denies anemia, denies enlarged lymph node Past Medical History Past Medical History: GERD/Reflux Additional Past Medical History / Comment(s): CHANGE IN BOWEL MOVEMENTS., HAVING PAIN IN STOMACH ,REFLUX WITH NAUSEA AND VOMITING. History of Any Multi-Drug Resistant Organisms: None Reported Past Surgical History: Appendectomy, Bowel Resection, Breast Surgery, Section, Cholecystectomy, Hernia Repair, Tubal Ligation Additional Past Surgical History / Comment(s): HERNIATED BOWEL REQUIRED BOWEL RESECTION., BREAST IMPLANTS, Pt. states "L breast imploded and the R implant needs to be removed. Past Anesthesia/Blood Transfusion Reactions: No Reported Reaction Additional Past Anesthesia/Blood Transfusion Reaction / Comment(s): HX OF BLOOD TRANSFUSION-NO REACTION Past Psychological History: Anxiety, Bipolar, Depression Smoking Status: Current every day smoker Past Alcohol Use History: None Reported Past Drug Use History: None Reported - Past Family History Mother Family Medical History: No Reported History Father Additional Family Medical History / Comment(s): COMMITTED SUICIDE AT AGE 28 Medications and Allergies Home Medications Medication Instructions Recorded Confirmed Type ALPRAZolam [Xanax] 1 mg PO TID PRN 05/25/22 07/29/23 History OXcarbazepine [Trileptal] 300 mg PO TID 05/25/22 07/29/23 History Apixaban [Eliquis] 5 mg PO BID 03/08/23 07/29/23 History Cyanocobalamin (Vitamin B-12) 1,000 mcg PO DAILY 03/08/23 07/29/23 History [Vitamin B-12] Ferrous Sulfate [Feosol] 325 mg PO DAILY 03/08/23 07/29/23 History Omeprazole 40 mg PO BID 03/08/23 07/29/23 History QUEtiapine [SEROquel] 1,200 mg PO HS 03/08/23 07/29/23 History methocarbamoL [Robaxin] 500 mg PO TID PRN 07/29/23 07/29/23 History Allergies Allergy/AdvReac Type Severity Reaction Status Date / Time No Known Allergies Allergy Verified 07/29/23 19:10 Physical Exam Vitals: Vital Signs Temp Pulse Resp BP BP Pulse Ox 07/30/23 01:45 122 H 24 79/52 98 07/30/23 01:30 123 H 12 79/52 98 07/30/23 01:00 122 H 24 78/51 99 07/30/23 00:27 120 H 15 72/50 98 07/30/23 00:15 122 H 26 H 77/52 99 07/30/23 00:01 98.3 F 17 77/52 07/30/23 00:00 98.3 F 125 H 22 76/45 98 07/29/23 23:45 126 H 25 H 76/47 97 07/29/23 23:23 97 07/29/23 23:15 129 H 19 76/47 98 07/29/23 23:00 131 H 24 84/47 95 07/29/23 22:45 99.2 F 134 H 22 81/56 97 07/29/23 21:46 98.2 F 07/29/23 21:30 133 H 22 83/67 95 07/29/23 21:00 130 H 20 89/69 93 L 07/29/23 20:45 129 H 24 99/77 96 07/29/23 20:30 124 H 23 75/53 100 07/29/23 20:00 124 H 18 84/52 99 07/29/23 19:30 121 H 30 H 82/49 97 07/29/23 19:00 122 H 19 79/50 96 07/29/23 18:45 124 H 18 79/54 94 L 07/29/23 18:24 122 H 18 74/54 98 07/29/23 18:00 120 H 18 81/46 96 07/29/23 17:00 124 H 24 75/46 98 07/29/23 16:45 124 H 24 73/48 98 07/29/23 16:02 98.1 F 67 18 98/57 99 Intake and Output 07/29/23 07/29/23 07/30/23 14:59 22:59 06:59 Intake Total 1240 Output Total 1430 Balance -190 Intake: IV 1240 Dextrose 5% in Water 1, 240 000 ml @ 80 mls/hr IV . [id number] MARIE with Sodium Bicarb (1 Meq/ml) 150 ml Rx#:[id number] Sodium Chloride 0.9% 1, 1000 000 ml @ 999 mls/hr IV . Q1H1M ONE Rx#:[id number] Output: Urine 1430 Other: Weight 70.307 kg 70.307 kg GENERAL EXAM: Alert, 63-year-old white female, yelling out and grabbing her left lateral flank HEAD: Normocephalic and atraumatic EYES: Normal reaction of pupils, equal size. NOSE: Clear with pink turbinates. THROAT: No erythema or exudates. NECK: No masses, no JVD. CHEST: No chest wall deformity. LUNGS: Equal air entry with no crackles, wheeze, rhonchi or dullness. On room air. No conversational dyspnea or accessory muscle use.. CVS: S1 and S2 normal with no audible murmur, regular rhythm. No extra heart sounds ABDOMEN: No hepatosplenomegaly, active bowel sounds, no guarding or rigidity. SPINE: No scoliosis or deformity SKIN: No rashes CENTRAL NERVOUS SYSTEM: No focal deficits, tone is normal in all 4 extremities. EXTREMITIES: There is no peripheral edema, clubbing, or cyanosis. Peripheral pulses are intact. Results - Laboratory Findings CBC and BMP: 07/29/23 16:44 07/29/23 16:44 PT/INR, D-dimer PT 13.6 sec (10.0-12.5) H 07/29/23 16:44 INR 1.3 (<1.2) H 07/29/23 16:44 D-Dimer 3.32 mg/L FEU (<0.60) H 07/29/23 16:44 Abnormal lab findings: Abnormal Labs 07/29/23 07/29/23 07/29/23 16:44 16:44 16:44 WBC 1.0 L* RBC 2.53 L Hgb 9.1 L Hct 27.8 L MCV 109.6 H MCH 35.9 H RDW 16.3 H Neutrophils # (Manual) 0.60 L Lymphocytes # (Manual) 0.11 L Metamyelocytes # (Man) 0.17 H Myelocytes # (Manual) 0.08 H Nucleated RBCs 2 H Macrocytosis Marked A PT 13.6 H INR 1.3 H APTT 31.2 H D-Dimer 3.32 H VBG pH VBG pCO2 VBG HCO3 Sodium Potassium Carbon Dioxide BUN Creatinine Glucose POC Glucose (mg/dL) Plasma Lactic Acid [place] Phosphorus Magnesium AST ALT Alkaline Phosphatase Albumin Urine Appearance Cloudy H Urine Protein 1+ H Urine Blood Trace H Urine WBC 22 H Urine Bacteria Rare H Hyaline Casts 63 H Urine Mucus Occasional H U Tricyclic Antidepress U Benzodiazepines Scrn 07/29/23 07/29/23 07/29/23 16:44 16:44 19:15 WBC RBC Hgb Hct MCV MCH RDW Neutrophils # (Manual) Lymphocytes # (Manual) Metamyelocytes # (Man) Myelocytes # (Manual) Nucleated RBCs Macrocytosis PT INR APTT D-Dimer VBG pH VBG pCO2 VBG HCO3 Sodium 129 L Potassium 5.6 H Carbon Dioxide 8 L* BUN 68 H Creatinine 5.13 H Glucose 101 H POC Glucose (mg/dL) Plasma Lactic Acid [place] 2.5 H* Phosphorus 8.1 H Magnesium 1.4 L AST 71 H ALT 110 H Alkaline Phosphatase 151 H Albumin 3.1 L Urine Appearance Urine Protein Urine Blood Urine WBC Urine Bacteria Hyaline Casts Urine Mucus U Tricyclic Antidepress Detected H U Benzodiazepines Scrn Detected H 07/29/23 07/29/23 19:46 22:36 WBC RBC Hgb Hct MCV MCH RDW Neutrophils # (Manual) Lymphocytes # (Manual) Metamyelocytes # (Man) Myelocytes # (Manual) Nucleated RBCs Macrocytosis PT INR APTT D-Dimer VBG pH 7.16 L* VBG pCO2 34 L VBG HCO3 12 L Sodium Potassium Carbon Dioxide BUN Creatinine Glucose POC Glucose (mg/dL) 118 H Plasma Lactic Acid [place] Phosphorus Magnesium AST ALT Alkaline Phosphatase Albumin Urine Appearance Urine Protein Urine Blood Urine WBC Urine Bacteria Hyaline Casts Urine Mucus U Tricyclic Antidepress U Benzodiazepines Scrn - Diagnostic Findings CT scan - chest: image reviewed Assessment and Plan Assessment: Refractory hypotension and shock, rule out infection and sepsis Severe metabolic anion gap acidosis Leukopenia Anemia, no obvious acute blood loss Nausea, vomiting, severe dehydration Acute kidney injury, likely secondary to ATN and shock Multiple electrolyte abnormalities including hyperkalemia and hyponatremia Mild transaminitis Small to moderate-sized pericardial effusion noted on CT scan of the chest, incidental finding History of pulmonary embolism, anticoagulated on Eliquis. Lower back pain, lateralized to the left flank area History of bipolar/depression Plan: Patient's medications, labs, imaging were reviewed Patient has received a total of 3.5 L normal saline bolus, and is being started on norepinephrine for refractory hypotension. No obvious infectious source has been identified. She has been covered on broad- spectrum antibiotics including Zosyn and vancomycin. Blood cultures are pending. Abdominal CT does not identify any acute intra-abdominal process. Urinalysis not remarkable for UTI. Crockett catheter was inserted to monitor intake and output. Continue sodium bicarbonate infusion Echocardiogram pending Continue Eliquis Protonix for GI prophylaxis Patient will be monitored in the intensive care unit. I have personally seen and examined the patient, performed the documentation and the assessment and plan as written. Number of minutes spent on the visit:20 Time with Patient: Greater than 30
[2023-07-30 03:49] LABS: Anisocytosis Slight; HCT 22.9 % (34.0-46.0); MCHC 32.5 g/dL (31.0-37.0); MCV 110.8 fL (80.0-100.0); Macrocytosis Marked; Mean Platelet Volume 8.5; Platelet Count 106 k/uL (150-450); RBC 2.06 m/uL (3.80-5.40); RDW 16.3 % (11.5-15.5)
[2023-07-30 03:50] LABS: HGB 7.4 gm/dL (11.4-16.0); WBC 0.9 k/uL (3.8-10.6)
[2023-07-30 04:19] LABS: ALT 82 U/L (4-34); AST 53 U/L (14-36); African American GFR (CKD) 16 (>60 ml/min/1.73 sqM); Albumin 2.6 g/dL (3.5-5.0); Alkaline Phosphatase 129 U/L (38-126); Anion Gap 14 mmol/L; Blood Urea Nitrogen 55 mg/dL (7-17); Calcium 7.3 mg/dL (8.4-10.2); Carbon Dioxide 10 mmol/L (22-30); Chloride 109 mmol/L (98-107); Glucose 114 mg/dL (74-99); Magnesium 1.2 mg/dL (1.6-2.3); Non-African American GFR(CKD) 14 (>60 ml/min/1.73 sqM); Phosphorus 5.4 mg/dL (2.5-4.5); Sodium 133 mmol/L (137-145); Total Bilirubin 0.3 mg/dL (0.2-1.3); Total Protein 6.5 g/dL (6.3-8.2)
[2023-07-30] MEDS: ACETAMINOPHEN TAB 325 MG TAB PO PRN (04:43)
--- NOTE | 2023-07-30 04:48 | XR ---
EXAMINATION TYPE: XR chest 1V DATE OF EXAM: 07/30/2023 CLINICAL HISTORY: Increasing dyspnea. TECHNIQUE: Single frontal view of the chest is obtained. COMPARISON: Chest x-ray March 08, 2023. CT July 29, 2023 FINDINGS: There is no suspicious new focal air space opacity, pleural effusion, or pneumothorax seen . The cardiac silhouette size is stable and within normal limits. Overlying rim calcified right-cachorro ed breast implant is present. The osseous structures are intact. IMPRESSION: No new acute cardiopulmonary process.
[2023-07-30 05:52] LABS: Anisocytosis (M) Present
[2023-07-30 05:53] LABS: Polychromasia Present; Rouleaux Present
[2023-07-30] MEDS: PANTOPRAZOLE 40 MG TABLET PO SCH (06:59)
[2023-07-30] MEDS ORDERED: HEPARIN SODIUM 1,000 UN/ML (10ML VL) IV PRN (07:43)
[2023-07-30] MEDS: HEPARIN SOD,PORK IN 0.45% NACL 25,000 UNIT in 0.45% NACL 1 250ML.BAG IV SCH (08:17)
[2023-07-30] MEDS: MAGNESIUM SULFATE-D5W PMX 1 GM in DEXTROSE/WATER 1 100ML.BAG IVPB SCH (08:36)
[2023-07-30] MEDS ORDERED: APIXABAN 5 MG TAB PO SCH (09:00)
[2023-07-30 09:01] LABS: Creatine Kinase 56 U/L (30-135); LDH 196 U/L (120-246)
[2023-07-30 09:30] LABS: INR 1.2 (<1.2); Partial Thromboplastin Time 33.8 sec (22.0-30.0); Prothrombin Time 13.2 sec (10.0-12.5)
[2023-07-30] MEDS: PIPERACILLIN-TAZOBACTAM 3.375 GM in SODIUM CHLORIDE 0.9% 100 ML IVPB SCH (09:41)
[2023-07-30 09:48] LABS: ABG Base Excess -8.8 mmol/L; ABG HCO3 16 mmol/L (21-25); ABG Oxygen Saturation 95.5 % (94-97); ABG PCO2 27 mmHg (35-45); ABG PH 7.39 (7.35-7.45); ABG PO2 81 mmHg (83-108); ABG TCO2 17 mmol/L (19-24)
[2023-07-30 09:55] LABS: Allen Test Performed? Yes
[2023-07-30] MEDS: FILGRASTIM-SNDZ 300 MCG/0.5 ML SYRINGE SQ SCH (10:28)
--- NOTE | 2023-07-30 10:52 | P.CNPUL ---
History of Present Illness Consult date: 07/30/23 Chief complaint: Altered mentation, hypotension, acute kidney injury History of present illness: 63-year-old female patient admitted to the intensive care unit with altered mentation, hypotension and acute kidney injury. The patient presented to the emergency department complaining of some back pain. She was altered, she was encephalopathic and weak. She was found to be hypotensive. She was given several fluid boluses and she remained hypotensive and the patient was started on pressors and currently she is on norepinephrine running at 0.1 mcg/kg/min. She was given a total of 4.5 L and currently 2 and a bicarb infusion running at 125 cc an hour. She is producing urine output. Noted that she had an acute kidney injury and the creatinine was elevated at 5.1 with a BUN of 68. Serum bicarb was at 8 with a potassium level of 5.6 and a sodium levels at 129. She probably has chronic Myelodysplasia as the patient's white cell count was low at 1 with a hemoglobin 9.1 and a platelet count of 153./The patient has pancytopenia. No respiratory difficulties. No cough or sputum production. Chest x-ray showed no evidence of any pneumonia. CT angiogram of the chest showed no evidence of any pulmonary embolism. CAT scan of the abdomen and pelvis was also done that showed no acute abnormalities. There was a small pericardial effusion. Nonspecific right inguinal lymphadenopathy was noted. The patient is having an echocardiogram this morning. The blood gas showed a pH of 7.39 with a pCO2 of 27 and pO2 of 81 minutes with an FiO2 of 28%. Creatinine is on the decline and currently is down to 3.37 with a BUN of 55 and his sodium level is at 133. Free cortisol level is at 33.9. Free T4 is at 0.6 which is essentially low. LDH is not elevated. The viral panel including influenza, COVID-19 and RSV were negative. Coagulation profile was within normal. D-dimer was at 3.98. CT angiogram was negative for any pulmonary embolism. CAT scan of the brain was also done in the emergency department along with a CT scan of the cervical spine showed no evidence of any cervical fracture and no evidence of any intracranial abnormalities. Mild spondylosis at the level of C6-C7. No focal neurological deficit. She is able to answer simple commands upon repeated stimulation. CPK was at 33. Troponins were negative. She has previous history of pulm embolism maintained on anticoagulation with Eliquis and this was placed on hold and the patient was started on IV heparin. She was also started empirically on a combination of Zosyn and vancomycin pending further cultures. Review of Systems ROS unobtainable: due to mental status Past Medical History Past Medical History: GERD/Reflux, Pulmonary Embolus (PE) Additional Past Medical History / Comment(s): CHANGE IN BOWEL MOVEMENTS., HAVING PAIN IN STOMACH ,REFLUX WITH NAUSEA AND VOMITING. History of Any Multi-Drug Resistant Organisms: None Reported Past Surgical History: Appendectomy, Bowel Resection, Breast Surgery, Section, Cholecystectomy, Hernia Repair, Tubal Ligation Additional Past Surgical History / Comment(s): HERNIATED BOWEL REQUIRED BOWEL RESECTION., BREAST IMPLANTS, Pt. states "L breast imploded and the R implant needs to be removed. Past Anesthesia/Blood Transfusion Reactions: No Reported Reaction Additional Past Anesthesia/Blood Transfusion Reaction / Comment(s): HX OF BLOOD TRANSFUSION-NO REACTION Past Psychological History: Anxiety, Bipolar, Depression Smoking Status: Current every day smoker Past Alcohol Use History: None Reported Past Drug Use History: None Reported - Past Family History Mother Family Medical History: No Reported History Father Additional Family Medical History / Comment(s): COMMITTED SUICIDE AT AGE 28 Medications and Allergies Home Medications Medication Instructions Recorded Confirmed Type ALPRAZolam [Xanax] 1 mg PO TID PRN 05/25/22 07/29/23 History OXcarbazepine [Trileptal] 300 mg PO TID 05/25/22 07/29/23 History Apixaban [Eliquis] 5 mg PO BID 03/08/23 07/29/23 History Cyanocobalamin (Vitamin B-12) 1,000 mcg PO DAILY 03/08/23 07/29/23 History [Vitamin B-12] Ferrous Sulfate [Feosol] 325 mg PO DAILY 03/08/23 07/29/23 History Omeprazole 40 mg PO BID 03/08/23 07/29/23 History QUEtiapine [SEROquel] 1,200 mg PO HS 03/08/23 07/29/23 History methocarbamoL [Robaxin] 500 mg PO TID PRN 07/29/23 07/29/23 History Allergies Allergy/AdvReac Type Severity Reaction Status Date / Time No Known Allergies Allergy Verified 03/19/24 19:10 Physical Exam Vitals: Vital Signs Temp Pulse Resp BP BP Pulse Ox 07/30/23 07:00 115 H 21 92/50 97 07/30/23 06:45 116 H 18 91/48 97 07/30/23 06:30 115 H 18 91/48 96 07/30/23 06:15 115 H 20 72/45 97 07/30/23 06:00 115 H 19 84/45 97 07/30/23 05:45 117 H 21 87/54 07/30/23 05:30 121 H 23 87/54 98 07/30/23 05:15 122 H 26 H 88/49 93 L 07/30/23 05:00 122 H 20 83/50 96 07/30/23 04:45 125 H 29 H 89/47 94 L 07/30/23 04:30 124 H 26 H 89/47 94 L 07/30/23 04:15 125 H 25 H 87/47 96 07/30/23 04:00 102.1 F H 124 H 25 H 87/53 96 07/30/23 03:45 125 H 26 H 89/59 96 07/30/23 03:30 128 H 13 88/58 97 07/30/23 03:15 124 H 28 H 97/60 98 07/30/23 03:00 123 H 14 89/64 98 07/30/23 02:45 124 H 30 H 73/55 98 07/30/23 02:30 124 H 22 88/52 98 07/30/23 02:15 122 H 24 88/52 98 07/30/23 01:45 122 H 24 79/52 98 07/30/23 01:30 123 H 12 79/52 98 07/30/23 01:00 122 H 24 78/51 99 07/30/23 00:27 120 H 15 72/50 98 07/30/23 00:15 122 H 26 H 77/52 99 07/30/23 00:01 98.3 F 17 77/52 07/30/23 00:00 98.3 F 125 H 22 76/45 98 07/29/23 23:45 126 H 25 H 76/47 97 07/29/23 23:23 97 07/29/23 23:15 129 H 19 76/47 98 07/29/23 23:00 131 H 24 84/47 95 07/29/23 22:45 99.2 F 134 H 22 81/56 97 07/29/23 21:46 98.2 F 07/29/23 21:30 133 H 22 83/67 95 07/29/23 21:00 130 H 20 89/69 93 L 07/29/23 20:45 129 H 24 99/77 96 07/29/23 20:30 124 H 23 75/53 100 07/29/23 20:00 124 H 18 84/52 99 07/29/23 19:30 121 H 30 H 82/49 97 07/29/23 19:00 122 H 19 79/50 96 07/29/23 18:45 124 H 18 79/54 94 L 07/29/23 18:24 122 H 18 74/54 98 07/29/23 18:00 120 H 18 81/46 96 07/29/23 17:00 124 H 24 75/46 98 07/29/23 16:45 124 H 24 73/48 98 07/29/23 16:02 98.1 F 67 18 98/57 99 Intake and Output 07/29/23 07/30/23 07/30/23 22:59 06:59 14:59 Intake Total 2231.253 132.367 Output Total 1900 100 Balance 331.253 32.367 Intake: IV 1570 125 Dextrose 5% in Water 1, 570 125 000 ml @ 125 mls/hr IV . Q9H12M MARIE with Sodium Bicarb (1 Meq/ml) 150 ml Rx#:[id number] Sodium Chloride 0.9% 1, 1000 000 ml @ 999 mls/hr IV . Q1H1M ONE Rx#:[id number] Intake, IV Titration 61.253 7.367 Amount Norepinephrine 4 mg In 61.253 7.367 Sodium Chloride 0.9% 250 ml @ 0.03 MCG/KG/MIN 8. 036 mls/hr IV .Q24H MARIE Rx#:[id number] Oral 600 Output: Urine 1900 100 Other: Voiding Method Indwelling Catheter Weight 70.307 kg 75.8 kg GENERAL EXAM: Alert, 63-year-old white female, calm and comfortable, no agitation the patient has no signs of any respiratory distress. The patient is moving all 4 extremities. The patient is able to state her name upon repeated stimulation. HEAD: Normocephalic and atraumatic EYES: Normal reaction of pupils, equal size. NOSE: Clear with pink turbinates. THROAT: No erythema or exudates. NECK: No masses, no JVD. CHEST: No chest wall deformity. LUNGS: Equal air entry with no crackles, wheeze, rhonchi or dullness. On room air. No conversational dyspnea or accessory muscle use.. CVS: S1 and S2 normal with no audible murmur, regular rhythm. No extra heart sounds ABDOMEN: No hepatosplenomegaly, active bowel sounds, no guarding or rigidity. SPINE: No scoliosis or deformity SKIN: No rashes CENTRAL NERVOUS SYSTEM: No focal deficits, tone is normal in all 4 extremities. The patient is encephalopathic. EXTREMITIES: There is no peripheral edema, clubbing, or cyanosis. Peripheral pulses are intact. Results - Laboratory Findings CBC and BMP: 07/30/23 03:13 07/30/23 03:13 PT/INR, D-dimer PT 13.6 sec (10.0-12.5) H 07/29/23 16:44 INR 1.3 (<1.2) H 07/29/23 16:44 D-Dimer 3.32 mg/L FEU (<0.60) H 07/29/23 16:44 Abnormal lab findings: Abnormal Labs 07/29/23 07/29/23 07/29/23 16:44 16:44 16:44 WBC 1.0 L* RBC 2.53 L Hgb 9.1 L Hct 27.8 L MCV 109.6 H MCH 35.9 H RDW 16.3 H Plt Count Neutrophils # (Manual) 0.60 L Lymphocytes # (Manual) 0.11 L Metamyelocytes # (Man) 0.17 H Myelocytes # (Manual) 0.08 H Nucleated RBCs 2 H Macrocytosis Marked A PT 13.6 H INR 1.3 H APTT 31.2 H D-Dimer 3.32 H VBG pH VBG pCO2 VBG HCO3 Sodium Potassium Chloride Carbon Dioxide BUN Creatinine Glucose POC Glucose (mg/dL) Osmolality Plasma Lactic Acid [place] Calcium Phosphorus Magnesium AST ALT Alkaline Phosphatase Albumin TSH Free T4 Urine Appearance Cloudy H Urine Protein 1+ H Urine Blood Trace H Urine WBC 22 H Urine Bacteria Rare H Hyaline Casts 63 H Urine Mucus Occasional H U Tricyclic Antidepress U Benzodiazepines Scrn 03/07/29/23 07/29/23 16:44 16:44 18:50 WBC RBC Hgb Hct MCV MCH RDW Plt Count Neutrophils # (Manual) Lymphocytes # (Manual) Metamyelocytes # (Man) Myelocytes # (Manual) Nucleated RBCs Macrocytosis PT INR APTT D-Dimer VBG pH VBG pCO2 VBG HCO3 Sodium 129 L Potassium 5.6 H Chloride Carbon Dioxide 8 L* BUN 68 H Creatinine 5.13 H Glucose 101 H POC Glucose (mg/dL) Osmolality 296 H Plasma Lactic Acid [place] 2.5 H* Calcium Phosphorus 8.1 H Magnesium 1.4 L AST 71 H ALT 110 H Alkaline Phosphatase 151 H Albumin 3.1 L TSH Free T4 Urine Appearance Urine Protein Urine Blood Urine WBC Urine Bacteria Hyaline Casts Urine Mucus U Tricyclic Antidepress U Benzodiazepines Scrn 07/29/23 07/29/23 07/29/23 19:15 19:46 22:36 WBC RBC Hgb Hct MCV MCH RDW Plt Count Neutrophils # (Manual) Lymphocytes # (Manual) Metamyelocytes # (Man) Myelocytes # (Manual) Nucleated RBCs Macrocytosis PT INR APTT D-Dimer VBG pH 7.16 L* VBG pCO2 34 L VBG HCO3 12 L Sodium Potassium Chloride Carbon Dioxide BUN Creatinine Glucose POC Glucose (mg/dL) 118 H Osmolality Plasma Lactic Acid [place] Calcium Phosphorus Magnesium AST ALT Alkaline Phosphatase Albumin TSH Free T4 Urine Appearance Urine Protein Urine Blood Urine WBC Urine Bacteria Hyaline Casts Urine Mucus U Tricyclic Antidepress Detected H U Benzodiazepines Scrn Detected H 07/30/23 07/30/23 07/30/23 03:13 03:13 03:13 WBC 0.9 L* RBC 2.06 L Hgb 7.4 L D Hct 22.9 L MCV 110.8 H MCH 36.0 H RDW 16.3 H Plt Count 106 L Neutrophils # (Manual) Lymphocytes # (Manual) Metamyelocytes # (Man) Myelocytes # (Manual) Nucleated RBCs Macrocytosis Marked A PT INR APTT D-Dimer VBG pH VBG pCO2 VBG HCO3 Sodium 133 L Potassium Chloride 109 H Carbon Dioxide 10 L BUN 55 H Creatinine 3.37 H Glucose 114 H POC Glucose (mg/dL) Osmolality Plasma Lactic Acid [place] Calcium 7.3 L Phosphorus 5.4 H Magnesium 1.2 L AST 53 H ALT 82 H Alkaline Phosphatase 129 H Albumin 2.6 L TSH 0.338 L Free T4 0.60 L Urine Appearance Urine Protein Urine Blood Urine WBC Urine Bacteria Hyaline Casts Urine Mucus U Tricyclic Antidepress U Benzodiazepines Scrn - Diagnostic Findings Chest x-ray: image reviewed CT scan - chest: image reviewed Assessment and Plan Plan: Acute encephalopathy with altered mentation. This is most likely metabolic encephalopathy. CAT scan of the brain was negative. CT scan of the cervical spine showed no acute fracture. CAT scan of the chest abdomen and pelvis was essentially nonrevealing. Patient has an acute kidney injury and being excessively resuscitated with IV fluids. She is also on pressors. She is covered broad-spectrum antibiotics and currently is on a combination of Zosyn and vancomycin. Acute hypotension under investigation, rule out sepsis. The patient was given a total of 4.5 L of IV fluids and currently she is covered with empiric antibiotics. Acute kidney injury, nonoliguric and creatinine is improving and the Crockett cat heter is in place Severe metabolic anion gap acidosis Leukopenia, as part of pancytopenia, rule out underlying myelodysplasia Anemia, no obvious acute blood loss Nausea, vomiting, severe dehydration Multiple electrolyte abnormalities including hyperkalemia and hyponatremia Mild transaminitis Small pericardial effusion noted on CT scan of the chest, incidental finding History of pulmonary embolism, anticoagulated on Eliquis. Lower back pain, lateralized to the left flank area History of bipolar/depression Plan: Continue bicarb infusion for now Monitor electrolytes and renal function Keep Crockett catheter in place nephrology consultation Continue pressors for hemodynamic support and the patient is currently on norepinephrine Continue empiric antibiotic coverage with a combination of Zosyn and vancomycin pending further cultures Echocardiogram is in progress Discontinue oral anticoagulation with Eliquis and put the patient on IV heparin Will give a dose of G-CSF regarding the neutropenia Hematology consultation regarding pancytopenia, may possibly need a bone marrow aspirate/biopsy Patient will be monitored in the intensive care unit.
--- NOTE | 2023-07-30 11:03 | P.NPCON ---
History of Present Illness - Reason for Consult acute renal failure - History of Present Illness Patient is a 63-year-old female admitted to the hospital with back pain and increased weakness. Patient has also had mental status changes. Patient was noted to be significantly hypotensive and started on pressors. Serum creatinine was elevated at 5.1 with CO2 of 8. Patient has been started on bicarb drip and admitted to the ICU as she has been maintained on pressors for hypotension. History of PE maintained on Gallo was. CTA chest was negative for pulmonary embolism. Previous creatinine 0.9 on 02/18/2023 CT abdomen shows no evidence of obstructive uropathy. [id number] pericardial effusion was noted. Urine drug screen was positive for tricyclic antidepressants and benzodiazepines. Serum alcohol and acetone was negative. Salicylate is pending. Lactic acid was elevated at 2.5 Review of Systems As per HPI Past Medical History Past Medical History: GERD/Reflux, Pulmonary Embolus (PE) Additional Past Medical History / Comment(s): CHANGE IN BOWEL MOVEMENTS., HAVING PAIN IN STOMACH ,REFLUX WITH NAUSEA AND VOMITING. History of Any Multi-Drug Resistant Organisms: None Reported Past Surgical History: Appendectomy, Bowel Resection, Breast Surgery, Section, Cholecystectomy, Hernia Repair, Tubal Ligation Additional Past Surgical History / Comment(s): HERNIATED BOWEL REQUIRED BOWEL RESECTION., BREAST IMPLANTS, Pt. states "L breast imploded and the R implant needs to be removed. Past Anesthesia/Blood Transfusion Reactions: No Reported Reaction Additional Past Anesthesia/Blood Transfusion Reaction / Comment(s): HX OF BLOOD TRANSFUSION-NO REACTION Past Psychological History: Anxiety, Bipolar, Depression Smoking Status: Current every day smoker Past Alcohol Use History: None Reported Past Drug Use History: None Reported - Past Family History Mother Family Medical History: No Reported History Father Additional Family Medical History / Comment(s): COMMITTED SUICIDE AT AGE 28 Medications and Allergies Home Medications Medication Instructions Recorded Confirmed Type ALPRAZolam [Xanax] 1 mg PO TID PRN 05/25/22 07/29/23 History OXcarbazepine [Trileptal] 300 mg PO TID 05/25/22 07/29/23 History Apixaban [Eliquis] 5 mg PO BID 03/08/23 07/29/23 History Cyanocobalamin (Vitamin B-12) 1,000 mcg PO DAILY 03/08/23 07/29/23 History [Vitamin B-12] Ferrous Sulfate [Feosol] 325 mg PO DAILY 03/08/23 07/29/23 History Omeprazole 40 mg PO BID 03/08/23 07/29/23 History QUEtiapine [SEROquel] 1,200 mg PO HS 03/08/23 07/29/23 History methocarbamoL [Robaxin] 500 mg PO TID PRN 07/29/23 07/29/23 History Allergies Allergy/AdvReac Type Severity Reaction Status Date / Time No Known Allergies Allergy Verified 07/29/23 19:10 Physical Exam Vitals: Vital Signs Temp Pulse Resp BP BP Pulse Ox 07/30/23 10:00 112 H 22 106/53 97 07/30/23 09:45 112 H 23 96/53 96 07/30/23 09:30 112 H 21 97/54 95 07/30/23 09:15 114 H 20 96 07/30/23 09:00 114 H 20 98/53 96 07/30/23 08:45 115 H 20 91/48 97 07/30/23 08:30 115 H 22 95/51 97 07/30/23 08:15 112 H 20 86/49 97 07/30/23 08:00 98.9 F 112 H 20 81/47 95 07/30/23 07:45 113 H 19 87/46 95 07/30/23 07:30 115 H 20 111/58 96 07/30/23 07:15 118 H 20 113/98 97 07/30/23 07:00 115 H 21 92/50 97 07/30/23 06:45 116 H 18 91/48 97 07/30/23 06:30 115 H 18 91/48 96 07/30/23 06:15 115 H 20 72/45 97 07/30/23 06:00 115 H 19 84/45 97 07/30/23 05:45 117 H 21 87/54 07/30/23 05:30 121 H 23 87/54 98 07/30/23 05:15 122 H 26 H 88/49 93 L 07/30/23 05:00 122 H 20 83/50 96 07/30/23 04:45 125 H 29 H 89/47 94 L 07/30/23 04:30 124 H 26 H 89/47 94 L 03/20/24 04:15 125 H 25 H 87/47 96 07/30/23 04:00 102.1 F H 124 H 25 H 87/53 96 07/30/23 03:45 125 H 26 H 89/59 96 07/30/23 03:30 128 H 13 88/58 97 07/30/23 03:15 124 H 28 H 97/60 98 07/30/23 03:00 123 H 14 89/64 98 07/30/23 02:45 124 H 30 H 73/55 98 07/30/23 02:30 124 H 22 88/52 98 07/30/23 02:15 122 H 24 88/52 98 07/30/23 01:45 122 H 24 79/52 98 07/30/23 01:30 123 H 12 79/52 98 07/30/23 01:00 122 H 24 78/51 99 07/30/23 00:27 120 H 15 72/50 98 07/30/23 00:15 122 H 26 H 77/52 99 07/30/23 00:01 98.3 F 17 77/52 07/30/23 00:00 98.3 F 125 H 22 76/45 98 07/29/23 23:45 126 H 25 H 76/47 97 07/29/23 23:23 97 07/29/23 23:15 129 H 19 76/47 98 07/29/23 23:00 131 H 24 84/47 95 07/29/23 22:45 99.2 F 134 H 22 81/56 97 07/29/23 21:46 98.2 F 07/29/23 21:30 133 H 22 83/67 95 07/29/23 21:00 130 H 20 89/69 93 L 07/29/23 20:45 129 H 24 99/77 96 07/29/23 20:30 124 H 23 75/53 100 07/29/23 20:00 124 H 18 84/52 99 07/29/23 19:30 121 H 30 H 82/49 97 07/29/23 19:00 122 H 19 79/50 96 07/29/23 18:45 124 H 18 79/54 94 L 07/29/23 18:24 122 H 18 74/54 98 07/29/23 18:00 120 H 18 81/46 96 07/29/23 17:00 124 H 24 75/46 98 07/29/23 16:45 124 H 24 73/48 98 07/29/23 16:02 98.1 F 67 18 98/57 99 Intake and Output 07/29/23 07/30/23 07/30/23 22:59 06:59 14:59 Intake Total 2231.253 507.367 Output Total 1900 550 Balance 331.253 -42.633 Intake: IV 1570 500 Dextrose 5% in Water 1, 570 500 000 ml @ 125 mls/hr IV . Q9H12M MARIE with Sodium Bicarb (1 Meq/ml) 150 ml Rx#:[id number] Sodium Chloride 0.9% 1, 1000 000 ml @ 999 mls/hr IV . Q1H1M ONE Rx#:[id number] Intake, IV Titration 61.253 7.367 Amount Norepinephrine 4 mg In 61.253 7.367 Sodium Chloride 0.9% 250 ml @ 0.03 MCG/KG/MIN 8. 036 mls/hr IV .Q24H MARIE Rx#:[id number] Oral 600 Output: Urine 1900 550 Other: Voiding Method Indwelling Catheter Weight 70.307 kg 75.8 kg Patient is lethargic she does open her eyes but does not communicate. Examination of the heart S1 and S2 Examination of the lungs bilateral breath sounds are heard Abdomen is soft nontender Examination of lower extremities shows no evidence of edema [employer] INSPECTOR exam shows patient is moving all 4 extremities but she is lethargic and does not communicate much Results - Lab Results Most recent lab results ABG pH 7.39 (7.35-7.45) 07/30/23 09:46 ABG pCO2 27 mmHg (35-45) L 07/30/23 09:46 ABG pO2 81 mmHg (83-108) L 07/30/23 09:46 ABG HCO3 16 mmol/L (21-25) L 07/30/23 09:46 ABG O2 Saturation 95.5 % (94-97) 07/30/23 09:46 Calcium 7.3 mg/dL (8.4-10.2) L 07/30/23 03:13 Phosphorus 5.4 mg/dL (2.5-4.5) H 07/30/23 03:13 Magnesium 1.2 mg/dL (1.6-2.3) L 07/30/23 03:13 07/30/23 03:13 07/30/23 03:13 Assessment and Plan Assessment: 1. Acute kidney injury, ATN, nonoliguric secondary to hypotension, currently improving. UA shows trace blood 1+ protein WBCs 22. CT abdomen shows no evidence of obstruction. 2. Anion gap metabolic acidosis secondary to acute kidney injury, other workup so far negative. Volatile alcohol screen will also be sent out. Patient is currently maintained on bicarb drip. 3. Altered mentation secondary to possible element of uremia, metabolic e ncephalopathy. CT of the head is negative. Renal function is improving therefore I will hold off on hemodialysis. 4. Hypotension, maintained on empiric antibiotics for possible underlying sepsis. Status post fluid resuscitation. 5. Pancytopenia 6. Small to moderate pericardial effusion Plan: Continue with bicarb drip Agree with echocardiogram to rule out tamponade Check volatile alcohol screen Repeat labs in a.m. Hematology consult Continue empiric antibiotics ex Thank you for the consultation. We will continue to follow the patient with you during her hospitalization
[2023-07-30 11:55] LABS: Salicylate 1.2 mg/dL
[2023-07-30 12:16] LABS: Acetaminophen <10.0 ug/mL
--- NOTE | 2023-07-30 13:28 | CA ---
Transthoracic Echo Report Name: Soheila Sanchez Age: 63 Gender: F : 1960 Exam Date: 07/30/2023 07:23 Exam Location: [facility] Ht (in): 63 Wt (lb): 155 Ordering Physician: Jamia Meek MD Attending/Referring Phys: [id number], [employer] Engineer Qiana Casas, [facility] Procedure CPT: Indications: pericardial effusion Cardiac Hx: Technical Quality: Good Contrast 1: Total Dose (mL): Contrast 2: Total Dose (mL): MEASUREMENTS (Male / Female) Normal Values 2D ECHO LV Diastolic Diameter PLAX 5.3 cm 4.2 - 5.9 / 3.9 - 5.3 cm LV Systolic Diameter PLAX 3.1 cm IVS Diastolic Thickness 0.9 cm 0.6 - 1.0 / 0.6 - 0.9 cm LVPW Diastolic Thickness 1.1 cm 0.6 - 1.0 / 0.6 - 0.9 cm LV Relative Wall Thickness 0.4 RV Internal Dim ED PLAX 2.7 cm LA Systolic Diameter LX 3.7 cm 3.0 - 4.0 / 2.7 - 3.8 cm LV Diastolic Volume MOD BP 59.0 cm??? 67 - 155 / 56 - 104 cm??? LV Systolic Volume MOD BP 35.3 cm??? 22 - 58 / 19 - 49 cm??? LV Ejection Fraction MOD BP 40.2 % >= 55 % LV Cardiac Index MOD BP 1551.0 cm???/min???m??? LV Diastolic Volume MOD 4C 61.6 cm??? LV Systolic Volume MOD 4C 37.7 cm??? LV Ejection Fraction MOD 4C 38.8 % LV Cardiac Index MOD 4C 1567.3 cm???/min???m??? LV Diastolic Length 4C 5.9 cm LV Systolic Length 4C 5.3 cm LV Diastolic Volume MOD 2C 53.9 cm??? LV Systolic Volume MOD 2C 32.0 cm??? LV Ejection Fraction MOD 2C 40.7 % LV Cardiac Index MOD 2C 1437.0 cm???/min???m??? LV Diastolic Length 2C 6.2 cm LV Systolic Length 2C 5.5 cm M-MODE Aortic Root Diameter MM 3.4 cm LA Systolic Diameter MM 3.5 cm LA Ao Ratio MM 1.0 DOPPLER AV Peak Velocity 147.4 cm/s AV Peak Gradient 8.7 mmHg Mitral E Point Velocity 75.6 cm/s Mitral A Point Velocity 65.9 cm/s Mitral E to A Ratio 1.1 MV Deceleration Time 179.4 ms FINDINGS Left Ventricle Left ventricular ejection fraction is estimated at 40-45 %. Mildly increased posterior wall thickness. Moderately decreased left ventricular ejection fraction. Right Ventricle Normal right ventricular size. Unable to estimate the right ventricular systolic pressure. Right Atrium Normal right atrial size. Left Atrium Normal left atrial size. Mitral Valve Structurally normal mitral valve. Trace mitral regurgitation. Aortic Valve Trileaflet aortic valve. No aortic valve stenosis or regurgitation. Tricuspid Valve Structurally normal tricuspid valve. No tricuspid regurgitation. Pulmonic Valve Structurally normal pulmonic valve. Trace pulmonic regurgitation. Pericardium Small pericardial effusion. Aorta Normal size aortic root and proximal ascending aorta. CONCLUSIONS Impaired LV function with EF between 40-45% Previewed by: Dr. Javier Brown MD (Electronically Signed) Final Date: 30 July 2023 13:27
[2023-07-30] MEDS: CEFEPIME 1 GM in SODIUM CHLORIDE 0.9% 50 ML IVPB SCH (13:33)
[2023-07-30] MEDS ORDERED: VANCOMYCIN 1,250 MG in SODIUM CHLORIDE 0.9% 250 ML IVPB ONE (14:00)
--- NOTE | 2023-07-30 14:32 | US ---
EXAMINATION TYPE: US abdomen complete DATE OF EXAM: 07/30/2023 COMPARISON: NONE CLINICAL INDICATION: Female, 63 years old with history of rebound tenderness (Rt abd>lt abd); back pa in, ICU patient, cholecystectomy TECHNIQUE: Multiple sonographic images of the abdomen are obtained. FINDINGS: EXAM MEASUREMENTS: Liver Length: 18.1 cm Gallbladder Wall: Surgically absent CBD: 0.8 cm Spleen: 13.6 cm Right Kidney: 9.4 x 4.7 x 5.0 cm Left Kidney: 12.3 x 5.2 x 5.4 cm SAP SENIOR DEVELOPER NOTES: bowel gas and patients limited mobility due to pain limits exam Pancreas: Obscured by bowel gas. Liver: limited views were difficult to penetrate Gallbladder: Surgically absent Evidence for sonographic Dinh's sign: no CBD: wnl Spleen: wnl Right Kidney: limited views due to bowel gas Left Kidney: wnl Upper IVC: wnl Abd Aorta: wnl IMPRESSION: Limited exam as discussed above with no acute process identified as visualized.
--- NOTE | 2023-07-30 14:34 | US ---
EXAMINATION TYPE: US abdomen APPY DATE OF EXAM: 07/30/2023 COMPARISON: NONE CLINICAL INDICATION: Female, 63 years old with history of Rebound tenderness; ICU patient with reboun d tenderness, WBC 1.0 TECHNIQUE: Multiple sonographic images of the right lower quadrant were obtained with graded compress ion. FINDINGS: Multiple images of RLQ. Appendix was not seen. Lymph nodes, peristalsing bowel and trace of free flu id seen. IMPRESSION: The appendix is not visualized. The exam is nondiagnostic in assessment for appendicitis.
[2023-07-30] MEDS: ACETAMINOPHEN IV (For NPO) 1,000 MG in EMPTY BAG 1 BAG IVPB ONE (15:25)
--- NOTE | 2023-07-30 16:13 | P.PN ---
Subjective Progress Note Date: 07/30/23 Patient is a 63-year-old female with history of pulmonary embolism anticoagulated with Eliquis, GI bleed, GERD, and bipolar disorder who presented to the emergency room with complaints of back pain. On arrival to the emergency department her initial vital signs showed blood pressure of 98/57 however 45 minutes later she had a pulse of 124 with a blood pressure of 73/48. Initial laboratory analysis was remarkable for white blood cell count of 9, hemoglobin 9.1, INR 1.3, D-dimer 3.32, sodium 129, potassium 5.6, carbon dioxide 8, BUN 68, creatinine 5.13, AST 71, ALT 110. Initial urinalysis was negative. Patient had been given 2 L of fluid in the emergency department but remained hypotensive. Patient was called for admission. Her CT head and cervical spine then resulted with no acute intracranial abnormality but cervical spondylosis most progressed at C6-C7. CT chest abdomen and pelvis demonstrated nonspecific right inguinal adenopathy, superior endplate fracture of L3 likely Schmorl's node with clinical correlation recommended. She was given an additional 1 L fluid bolus and started on D5W with 3 A of bicarb. Nephrology was contacted. Arrangements were made for the patient to be admitted to the ICU. She was started on empiric Vanco and Zosyn due to refractory hypotension and shock, As well as neutropenia. Critical care was consulted. Patient began to require norep inephrine. Patient seen and examined at bedside. She is very lethargic and awakes to sternal rub. She reports that she was having back pain and abdominal pain at home. Denies chest pain or shortness of breath. Vital signs reviewed General: ill appearing, no distress, appears at stated age Cardiovascular: S1S2 reg, no murmur Lungs: CTA bilateral, no rhonchi, no rales, no accessory muscle use Abdominal: soft, nontender to palpation, no guarding Ext: no gross muscle atrophy, no edema b/l lower extremities, no contractures Neuro: CN II-XI grossly intact, no focal neuro deficits Psych: Alert, oriented, appropriate affect Assessment/Plan: Shock, likely septic, borderline neutropenic due to absolute neutrophil count of 600. -Wean norepi as able -Continue with vancomycin pharmacy to dose monitor creatinine and trough levels for toxicity day #2 -Zosyn 3.375 g IV piggyback every 12 hours day #2 -Critical care consult reviewed: broad spectrum IV abx, await echo -Check echo to rule out cardiogenic shock Acute kidney injury Hyperkalemia, improved Anion gap metabolic acidosis, severe yesterday Hyponatremia -No signs of hydronephrosis on CT abdomen and pelvis -Await nephrology consultation -Continue with D5W with 3 A of bicarb currently running at 80 MLS per hour but ordered at 120. Likely should be increased as the patient continues to be acidotic with a carbon dioxide of 10. -Urine sodium 53 and likely most consistent with SIADH. However patient's sodium has been increasing with fluid resuscitation and therefore may have multiple components of both dehydration and SIADH. Continue to monitor closely Pancytopenia with neutropenia, anemia, and now thrombocytopenia -Smear from yesterday shows both metamyelocytes and myelocytes -Consult hematology and oncology -Recheck coagulation profile, D-dimer, fibrinogen, - check LDH & haptoglobin with concerns for possible hemolysis. Given this in conjunction with the acute renal failure concern could also be for HUS TTP. Could consider Proctor TS 13 testing if hematology and nephrology are in agreement - stop filgastrim as no clear indication for this medication, unless heme/onc in agreement. Hx of Pulmonary embolism - given degree of renal failure, drop in hemoglobin, and potential need for therapeutic intervention, stop eliquis and start heparin gtt (Patient PE was in May 2022 so will start low dose). Hypomagnesemia -Magnesium 2 g IV piggyback -Repeat in a.m. Endplate fracture L3, possible Schmorl's node Imaging: Chest x-ray: As reviewed by myself, increased pulmonary vascular congestion Data Review: Labs reviewed from today include CBC, CMP, and TSH which are remarkable for white blood cell count 0.9, hemoglobin 7.4, platelets 106 DVT prophylaxis: Heparin gtt Anticipated discharge date: Pending Clinical Course Anticipated discharge place: Pending Clinical Course This dictation was prepared using [employer] voice recognition software. Though every attempt is made to correct errors during dictation some may still exist. Objective - Vital Signs Vital signs: Vital Signs Temp 102.1 F H 07/30/23 04:00 Pulse 115 H 07/30/23 07:00 Resp 21 07/30/23 07:00 BP 92/50 07/30/23 07:00 Pulse Ox 97 07/30/23 07:00 FiO2 Intake & Output 03/19/24 03/20/24 03/20/24 18:59 06:59 18:59 Intake Total 2231.253 132.367 Output Total 1900 100 Balance 331.253 32.367 Weight 70.307 kg 75.8 kg Intake: IV 1570 125 Dextrose 5% in Water 1, 570 125 000 ml @ 125 mls/hr IV . Q9H12M MARIE with Sodium Bicarb (1 Meq/ml) 150 ml Rx#:[id number] Sodium Chloride 0.9% 1, 1000 000 ml @ 999 mls/hr IV . Q1H1M ONE Rx#:[id number] Intake, IV Titration 61.253 7.367 Amount Norepinephrine 4 mg In 61.253 7.367 Sodium Chloride 0.9% 250 ml @ 0.03 MCG/KG/MIN 8. 036 mls/hr IV .Q24H MARIE Rx#:[id number] Oral 600 Output: Urine 1900 100 Other: Voiding Method Indwelling Catheter - Labs CBC & Chem 7: 07/30/23 03:13 07/30/23 03:13 Labs: Abnormal Lab Results - Last 24 Hours (Table) 07/29/23 07/29/23 07/29/23 Range/Units 16:44 16:44 16:44 WBC 1.0 L* (3.8-10.6) k/uL RBC 2.53 L (3.80-5.40) m/uL Hgb 9.1 L (11.4-16.0) gm/dL Hct 27.8 L (34.0-46.0) % MCV 109.6 H (80.0-100.0) fL MCH 35.9 H (25.0-35.0) pg RDW 16.3 H (11.5-15.5) % Plt Count (150-450) k/uL Neutrophils # (Manual) 0.60 L (1.3-7.7) k/uL Lymphocytes # (Manual) 0.11 L (1.0-4.8) k/uL Metamyelocytes # (Man) 0.17 H (0) k/uL Myelocytes # (Manual) 0.08 H (0) k/uL Nucleated RBCs 2 H (0-0) /100 WBC Macrocytosis Marked A PT 13.6 H (10.0-12.5) sec INR 1.3 H (<1.2) APTT 31.2 H (22.0-30.0) sec D-Dimer 3.32 H (<0.60) mg/L FEU VBG pH (7.31-7.41) VBG pCO2 (37-51) mmHg VBG HCO3 (24-28) mmol/L Sodium (137-145) mmol/L Potassium (3.5-5.1) mmol/L Chloride (98-107) mmol/L Carbon Dioxide (22-30) mmol/L BUN (7-17) mg/dL Creatinine (0.52-1.04) mg/dL Glucose (74-99) mg/dL POC Glucose (mg/dL) (70-110) mg/dL Osmolality (275-295) mOsm/kg Plasma Lactic Acid [place] (0.7-2.0) mmol/L Calcium (8.4-10.2) mg/dL Phosphorus (2.5-4.5) mg/dL Magnesium (1.6-2.3) mg/dL AST (14-36) U/L ALT (4-34) U/L Alkaline Phosphatase (38-126) U/L Albumin (3.5-5.0) g/dL TSH (0.465-4.680) mIU/L Free T4 (0.78-2.19) ng/dL Urine Appearance Cloudy H (Clear) Urine Protein 1+ H (Negative) Urine Blood Trace H (Negative) Urine WBC 22 H (0-5) /hpf Urine Bacteria Rare H (None) /hpf Hyaline Casts 63 H (0-2) /lpf Urine Mucus Occasional H (None) /hpf U Tricyclic Antidepress (NotDetected) U Benzodiazepines Scrn (NotDetected) 07/29/23 07/29/23 07/29/23 Range/Units 16:44 16:44 18:50 WBC (3.8-10.6) k/uL RBC (3.80-5.40) m/uL Hgb (11.4-16.0) gm/dL Hct (34.0-46.0) % MCV (80.0-100.0) fL MCH (25.0-35.0) pg RDW (11.5-15.5) % Plt Count (150-450) k/uL Neutrophils # (Manual) (1.3-7.7) k/uL Lymphocytes # (Manual) (1.0-4.8) k/uL Metamyelocytes # (Man) (0) k/uL Myelocytes # (Manual) (0) k/uL Nucleated RBCs (0-0) /100 WBC Macrocytosis PT (10.0-12.5) sec INR (<1.2) APTT (22.0-30.0) sec D-Dimer (<0.60) mg/L FEU VBG pH (7.31-7.41) VBG pCO2 (37-51) mmHg VBG HCO3 (24-28) mmol/L Sodium 129 L (137-145) mmol/L Potassium 5.6 H (3.5-5.1) mmol/L Chloride (98-107) mmol/L Carbon Dioxide 8 L* (22-30) mmol/L BUN 68 H (7-17) mg/dL Creatinine 5.13 H (0.52-1.04) mg/dL Glucose 101 H (74-99) mg/dL POC Glucose (mg/dL) (70-110) mg/dL Osmolality 296 H (275-295) mOsm/kg Plasma Lactic Acid [place] 2.5 H* (0.7-2.0) mmol/L Calcium (8.4-10.2) mg/dL Phosphorus 8.1 H (2.5-4.5) mg/dL Magnesium 1.4 L (1.6-2.3) mg/dL AST 71 H (14-36) U/L ALT 110 H (4-34) U/L Alkaline Phosphatase 151 H (38-126) U/L Albumin 3.1 L (3.5-5.0) g/dL TSH (0.465-4.680) mIU/L Free T4 (0.78-2.19) ng/dL Urine Appearance (Clear) Urine Protein (Negative) Urine Blood (Negative) Urine WBC (0-5) /hpf Urine Bacteria (None) /hpf Hyaline Casts (0-2) /lpf Urine Mucus (None) /hpf U Tricyclic Antidepress (NotDetected) U Benzodiazepines Scrn (NotDetected) 07/29/23 07/29/23 07/29/23 Range/Units 19:15 19:46 22:36 WBC (3.8-10.6) k/uL RBC (3.80-5.40) m/uL Hgb (11.4-16.0) gm/dL Hct (34.0-46.0) % MCV (80.0-100.0) fL MCH (25.0-35.0) pg RDW (11.5-15.5) % Plt Count (150-450) k/uL Neutrophils # (Manual) (1.3-7.7) k/uL Lymphocytes # (Manual) (1.0-4.8) k/uL Metamyelocytes # (Man) (0) k/uL Myelocytes # (Manual) (0) k/uL Nucleated RBCs (0-0) /100 WBC Macrocytosis PT (10.0-12.5) sec INR (<1.2) APTT (22.0-30.0) sec D-Dimer (<0.60) mg/L FEU VBG pH 7.16 L* (7.31-7.41) VBG pCO2 34 L (37-51) mmHg VBG HCO3 12 L (24-28) mmol/L Sodium (137-145) mmol/L Potassium (3.5-5.1) mmol/L Chloride (98-107) mmol/L Carbon Dioxide (22-30) mmol/L BUN (7-17) mg/dL Creatinine (0.52-1.04) mg/dL Glucose (74-99) mg/dL POC Glucose (mg/dL) 118 H (70-110) mg/dL Osmolality (275-295) mOsm/kg Plasma Lactic Acid [place] (0.7-2.0) mmol/L Calcium (8.4-10.2) mg/dL Phosphorus (2.5-4.5) mg/dL Magnesium (1.6-2.3) mg/dL AST (14-36) U/L ALT (4-34) U/L Alkaline Phosphatase (38-126) U/L Albumin (3.5-5.0) g/dL TSH (0.465-4.680) mIU/L Free T4 (0.78-2.19) ng/dL Urine Appearance (Clear) Urine Protein (Negative) Urine Blood (Negative) Urine WBC (0-5) /hpf Urine Bacteria (None) /hpf Hyaline Casts (0-2) /lpf Urine Mucus (None) /hpf U Tricyclic Antidepress Detected H (NotDetected) U Benzodiazepines Scrn Detected H (NotDetected) 07/30/23 07/30/23 07/30/23 Range/Units 03:13 03:13 03:13 WBC 0.9 L* (3.8-10.6) k/uL RBC 2.06 L (3.80-5.40) m/uL Hgb 7.4 L D (11.4-16.0) gm/dL Hct 22.9 L (34.0-46.0) % MCV 110.8 H (80.0-100.0) fL MCH 36.0 H (25.0-35.0) pg RDW 16.3 H (11.5-15.5) % Plt Count 106 L (150-450) k/uL Neutrophils # (Manual) (1.3-7.7) k/uL Lymphocytes # (Manual) (1.0-4.8) k/uL Metamyelocytes # (Man) (0) k/uL Myelocytes # (Manual) (0) k/uL Nucleated RBCs (0-0) /100 WBC Macrocytosis Marked A PT (10.0-12.5) sec INR (<1.2) APTT (22.0-30.0) sec D-Dimer (<0.60) mg/L FEU VBG pH (7.31-7.41) VBG pCO2 (37-51) mmHg VBG HCO3 (24-28) mmol/L Sodium 133 L (137-145) mmol/L Potassium (3.5-5.1) mmol/L Chloride 109 H (98-107) mmol/L Carbon Dioxide 10 L (22-30) mmol/L BUN 55 H (7-17) mg/dL Creatinine 3.37 H (0.52-1.04) mg/dL Glucose 114 H (74-99) mg/dL POC Glucose (mg/dL) (70-110) mg/dL Osmolality (275-295) mOsm/kg Plasma Lactic Acid [place] (0.7-2.0) mmol/L Calcium 7.3 L (8.4-10.2) mg/dL Phosphorus 5.4 H (2.5-4.5) mg/dL Magnesium 1.2 L (1.6-2.3) mg/dL AST 53 H (14-36) U/L ALT 82 H (4-34) U/L Alkaline Phosphatase 129 H (38-126) U/L Albumin 2.6 L (3.5-5.0) g/dL TSH 0.338 L (0.465-4.680) mIU/L Free T4 0.60 L (0.78-2.19) ng/dL Urine Appearance (Clear) Urine Protein (Negative) Urine Blood (Negative) Urine WBC (0-5) /hpf Urine Bacteria (None) /hpf Hyaline Casts (0-2) /lpf Urine Mucus (None) /hpf U Tricyclic Antidepress (NotDetected) U Benzodiazepines Scrn (NotDetected)
[2023-07-30 18:17] LABS: % Iron Saturation 11.28 (12.00-45.00)
[2023-07-30 22:23] LABS: Anisocytosis Slight; MCH 35.9 pg (25.0-35.0); MCHC 33.4 g/dL (31.0-37.0); MCV 107.5 fL (80.0-100.0); Mean Platelet Volume 9.6; RBC 1.85 m/uL (3.80-5.40); RDW 16.5 % (11.5-15.5)
[2023-07-30 22:29] LABS: HCT 19.8 % (34.0-46.0); HGB 6.6 gm/dL (11.4-16.0)
[2023-07-30 22:30] LABS: WBC 1.2 k/uL (3.8-10.6)
[2023-07-30 22:35] LABS: Macrocytosis Marked
--- NOTE | 2023-07-30 22:50 | P.CONS ---
History of Present Illness - Reason for Consult Consult date: 07/30/23 Enterococcus bacteremia Requesting physician: Brenda Davalos - Chief Complaint Worsening back pain X few days - History of Present Illness Patient is a 63-year-old female with a past medical history significant for reflux PE anxiety bipolar depression patient was brought into the hospital for 1 day history of severe low back pain apparently has increased in intensity as the patient the process of moving houses no bowel or bladder problem and no lower extremity weakness patient on presentation to the hospital was afebrile however she did spike a fever this morning of 102.1 F patient was tachycardic and hypotensive requiring pressor support admission to the ICU patient was not significantly hypoxic currently on a 2 L nasal cannula oxygen patient did have a white count of 0.9 BUN/creatinine has been elevated liver enzymes mildly elevated lactic acid was 2.5 urine was not significantly positive urine testing was positive for tricyclic and benzo influenza RSV COVID testing was negative patient did have a CT of the chest abdominal pelvis no acute abn ormality demonstrated small to moderate pericardial effusion nonspecific right inguinal adenopathy and also noticed to have some abnormality to L3 patient did have a blood culture positive with Enterobacter patient was started on cefepime infectious disease was consulted for further management of antibiotic therapy Review of Systems Positive point and negatives has been mentioned in the HPI, complete review of systems was performed and all other systems are negative Past Medical History Past Medical History: GERD/Reflux, Pulmonary Embolus (PE) Additional Past Medical History / Comment(s): CHANGE IN BOWEL MOVEMENTS., HAVING PAIN IN STOMACH ,REFLUX WITH NAUSEA AND VOMITING. History of Any Multi-Drug Resistant Organisms: None Reported Past Surgical History: Appendectomy, Bowel Resection, Breast Surgery, Section, Cholecystectomy, Hernia Repair, Tubal Ligation Additional Past Surgical History / Comment(s): HERNIATED BOWEL REQUIRED BOWEL RESECTION., BREAST IMPLANTS, Pt. states "L breast imploded and the R implant needs to be removed. Past Anesthesia/Blood Transfusion Reactions: No Reported Reaction Additional Past Anesthesia/Blood Transfusion Reaction / Comm: HX OF BLOOD TRANSFUSION-NO REACTION Past Psychological History: Anxiety, Bipolar, Depression Smoking Status: Current every day smoker Past Alcohol Use History: None Reported Past Drug Use History: None Reported - Past Family History Mother Family Medical History: No Reported History Father Additional Family Medical History / Comment(s): COMMITTED SUICIDE AT AGE 28 Medications and Allergies Home Medications Medication Instructions Recorded Confirmed Type ALPRAZolam [Xanax] 1 mg PO TID PRN 05/25/22 07/29/23 History OXcarbazepine [Trileptal] 300 mg PO TID 05/25/22 07/29/23 History Apixaban [Eliquis] 5 mg PO BID 03/08/23 07/29/23 History Cyanocobalamin (Vitamin B-12) 1,000 mcg PO DAILY 03/08/23 07/29/23 History [Vitamin B-12] Ferrous Sulfate [Feosol] 325 mg PO DAILY 03/08/23 07/29/23 History Omeprazole 40 mg PO BID 03/08/23 07/29/23 History QUEtiapine [SEROquel] 1,200 mg PO HS 03/08/23 07/29/23 History methocarbamoL [Robaxin] 500 mg PO TID PRN 07/29/23 07/29/23 History Allergies Allergy/AdvReac Type Severity Reaction Status Date / Time No Known Allergies Allergy Verified 07/29/23 19:10 Physical Exam Vitals: Vital Signs Temp Pulse Resp BP BP Pulse Ox 07/30/23 16:45 120 H 21 95/50 95 07/30/23 16:30 115 H 24 102/48 95 07/30/23 16:15 122 H 26 H 100/75 94 L 07/30/23 16:00 123 H 24 94/51 96 07/30/23 15:45 122 H 26 H 92/49 95 07/30/23 15:30 122 H 25 H 95/83 96 07/30/23 15:15 121 H 23 99/38 96 07/30/23 15:00 124 H 31 H 99/57 95 07/30/23 14:45 117 H 26 H 95/55 97 07/30/23 14:30 124 H 27 H 100/57 95 07/30/23 14:15 123 H 21 85/40 97 07/30/23 14:00 13 98/46 99 07/30/23 13:45 122 H 24 91/49 97 07/30/23 13:30 118 H 28 H 82/48 96 07/30/23 13:15 24 92/42 95 07/30/23 13:00 118 H 29 H 99/63 95 07/30/23 12:45 121 H 27 H 97/62 95 07/30/23 12:30 23 112/57 95 07/30/23 12:15 116 H 21 128/65 96 07/30/23 12:00 98.2 F 116 H 19 128/65 97 07/30/23 11:45 112 H 20 123/50 96 07/30/23 11:30 113 H 23 114/47 96 07/30/23 11:15 112 H 22 114/104 96 07/30/23 11:00 112 H 18 99/75 96 07/30/23 10:45 112 H 21 109/54 95 07/30/23 10:30 113 H 21 120/64 95 07/30/23 10:15 115 H 22 98/57 98 07/30/23 10:00 112 H 22 106/53 97 07/30/23 09:45 112 H 23 96/53 96 07/30/23 09:30 112 H 21 97/54 95 07/30/23 09:15 114 H 20 96 07/30/23 09:00 114 H 20 98/53 96 07/30/23 08:45 115 H 20 91/48 97 07/30/23 08:30 115 H 22 95/51 97 07/30/23 08:15 112 H 20 86/49 97 07/30/23 08:00 98.9 F 112 H 20 81/47 95 07/30/23 07:45 113 H 19 87/46 95 07/30/23 07:30 115 H 20 111/58 96 07/30/23 07:15 118 H 20 113/98 97 07/30/23 07:00 115 H 21 92/50 97 07/30/23 06:45 116 H 18 91/48 97 24 06:30 115 H 18 91/48 96 07/30/23 06:15 115 H 20 72/45 97 07/30/23 06:00 115 H 19 84/45 97 07/30/23 05:45 117 H 21 87/54 07/30/23 05:30 121 H 23 87/54 98 07/30/23 05:15 122 H 26 H 88/49 93 L 07/30/23 05:00 122 H 20 83/50 96 07/30/23 04:45 125 H 29 H 89/47 94 L 03/20/24 04:30 124 H 26 H 89/47 94 L 07/30/23 04:15 125 H 25 H 87/47 96 07/30/23 04:00 102.1 F H 124 H 25 H 87/53 96 07/30/23 03:45 125 H 26 H 89/59 96 07/30/23 03:30 128 H 13 88/58 97 07/30/23 03:15 124 H 28 H 97/60 98 07/30/23 03:00 123 H 14 89/64 98 07/30/23 02:45 124 H 30 H 73/55 98 07/30/23 02:30 124 H 22 88/52 98 07/30/23 02:15 122 H 24 88/52 98 07/30/23 01:45 122 H 24 79/52 98 07/30/23 01:30 123 H 12 79/52 98 07/30/23 01:00 122 H 24 78/51 99 07/30/23 00:27 120 H 15 72/50 98 07/30/23 00:15 122 H 26 H 77/52 99 07/30/23 00:01 98.3 F 17 77/52 07/30/23 00:00 98.3 F 125 H 22 76/45 98 07/29/23 23:45 126 H 25 H 76/47 97 07/29/23 23:23 97 07/29/23 23:15 129 H 19 76/47 98 07/29/23 23:00 131 H 24 84/47 95 07/29/23 22:45 99.2 F 134 H 22 81/56 97 07/29/23 21:46 98.2 F 07/29/23 21:30 133 H 22 83/67 95 07/29/23 21:00 130 H 20 89/69 93 L 07/29/23 20:45 129 H 24 99/77 96 07/29/23 20:30 124 H 23 75/53 100 07/29/23 20:00 124 H 18 84/52 99 07/29/23 19:30 121 H 30 H 82/49 97 07/29/23 19:00 122 H 19 79/50 96 07/29/23 18:45 124 H 18 79/54 94 L 07/29/23 18:24 122 H 18 74/54 98 07/29/23 18:00 120 H 18 81/46 96 Intake and Output 07/30/23 07/30/23 07/30/23 06:59 14:59 22:59 Intake Total 2231.253 1148.089 294.658 Output Total 1900 1100 365 Balance 331.253 48.089 -70.342 Intake: IV 1570 1000 250 Dextrose 5% in Water 1, 570 1000 250 000 ml @ 125 mls/hr IV . Q9H12M MARIE with Sodium Bicarb (1 Meq/ml) 150 ml Rx#:[id number] Sodium Chloride 0.9% 1, 1000 000 ml @ 999 mls/hr IV . Q1H1M ONE Rx#:[id number] Intake, IV Titration 61.253 148.089 44.658 Amount Norepinephrine 4 mg In 61.253 148.089 44.658 Sodium Chloride 0.9% 250 ml @ 0.03 MCG/KG/MIN 8. 036 mls/hr IV .Q24H MARIE Rx#:[id number] Oral 600 Output: Urine 1900 1100 365 Other: Voiding Method Indwelling Catheter Indwelling Catheter Indwelling Catheter Weight 75.8 kg GENERAL DESCRIPTION: Middle-aged female lying in bed, no distress. No tachypnea or accessory muscle of respiration use. HEENT: Shows Pallor , no scleral icterus. Oral mucous membrane is dry. No pharyngeal erythema or thrush NECK: Trachea central, no thyromegaly. LUNGS: Unlabored breathing. Clear to auscultation anteriorly. No wheeze or crackle. HEART: S1, S2, regular rate and rhythm. No loud murmur ABDOMEN: Soft, no tenderness EXTREMITIES: No edema of feet. SKIN: No rash, no masses palpable. NEUROLOGICAL: The patient is awake, alert, oriented x3, mood and affect normal. Results CBC & Chem 7: 08/07/23 04:06 08/07/23 04:06 Labs: Abnormal Lab Results - Last 24 Hours (Table) 07/29/23 07/29/23 07/29/23 Range/Units 16:44 16:44 16:44 WBC 1.0 L* (3.8-10.6) k/uL RBC 2.53 L (3.80-5.40) m/uL Hgb 9.1 L (11.4-16.0) gm/dL Hct 27.8 L (34.0-46.0) % MCV 109.6 H (80.0-100.0) fL MCH 35.9 H (25.0-35.0) pg RDW 16.3 H (11.5-15.5) % Plt Count (150-450) k/uL Neutrophils # (Manual) 0.60 L (1.3-7.7) k/uL Lymphocytes # (Manual) 0.11 L (1.0-4.8) k/uL Metamyelocytes # (Man) 0.17 H (0) k/uL Myelocytes # (Manual) 0.08 H (0) k/uL Nucleated RBCs 2 H (0-0) /100 WBC Macrocytosis Marked A PT 13.6 H (10.0-12.5) sec INR 1.3 H (<1.2) APTT 31.2 H (22.0-30.0) sec D-Dimer 3.32 H (<0.60) mg/L FEU ABG pCO2 (35-45) mmHg ABG pO2 (83-108) mmHg ABG HCO3 (21-25) mmol/L ABG Total CO2 (19-24) mmol/L VBG pH (7.31-7.41) VBG pCO2 (37-51) mmHg VBG HCO3 (24-28) mmol/L Sodium (137-145) mmol/L Potassium (3.5-5.1) mmol/L Chloride (98-107) mmol/L Carbon Dioxide (22-30) mmol/L BUN (7-17) mg/dL Creatinine (0.52-1.04) mg/dL Glucose (74-99) mg/dL POC Glucose (mg/dL) (70-110) mg/dL Osmolality (275-295) mOsm/kg Plasma Lactic Acid [place] (0.7-2.0) mmol/L Calcium (8.4-10.2) mg/dL Phosphorus (2.5-4.5) mg/dL Magnesium (1.6-2.3) mg/dL AST (14-36) U/L ALT (4-34) U/L Alkaline Phosphatase (38-126) U/L Albumin (3.5-5.0) g/dL Procalcitonin (0.02-0.09) ng/mL TSH (0.465-4.680) mIU/L Free T4 (0.78-2.19) ng/dL Cortisol (3.1-22.4) UG/DL Urine Appearance Cloudy H (Clear) Urine Protein 1+ H (Negative) Urine Blood Trace H (Negative) Urine WBC 22 H (0-5) /hpf Urine Bacteria Rare H (None) /hpf Hyaline Casts 63 H (0-2) /lpf Urine Mucus Occasional H (None) /hpf Urine Osmolality (400-1100) mOsm/kg U Tricyclic Antidepress (NotDetected) U Benzodiazepines Scrn (NotDetected) 07/29/23 07/29/23 07/29/23 Range/Units 16:44 16:44 18:50 WBC (3.8-10.6) k/uL RBC (3.80-5.40) m/uL Hgb (11.4-16.0) gm/dL Hct (34.0-46.0) % MCV (80.0-100.0) fL MCH (25.0-35.0) pg RDW (11.5-15.5) % Plt Count (150-450) k/uL Neutrophils # (Manual) (1.3-7.7) k/uL Lymphocytes # (Manual) (1.0-4.8) k/uL Metamyelocytes # (Man) (0) k/uL Myelocytes # (Manual) (0) k/uL Nucleated RBCs (0-0) /100 WBC Macrocytosis PT (10.0-12.5) sec INR (<1.2) APTT (22.0-30.0) sec D-Dimer (<0.60) mg/L FEU ABG pCO2 (35-45) mmHg ABG pO2 (83-108) mmHg ABG HCO3 (21-25) mmol/L ABG Total CO2 (19-24) mmol/L VBG pH (7.31-7.41) VBG pCO2 (37-51) mmHg VBG HCO3 (24-28) mmol/L Sodium 129 L (137-145) mmol/L Potassium 5.6 H (3.5-5.1) mmol/L Chloride (98-107) mmol/L Carbon Dioxide 8 L* (22-30) mmol/L BUN 68 H (7-17) mg/dL Creatinine 5.13 H (0.52-1.04) mg/dL Glucose 101 H (74-99) mg/dL POC Glucose (mg/dL) (70-110) mg/dL Osmolality (275-295) mOsm/kg Plasma Lactic Acid [place] 2.5 H* (0.7-2.0) mmol/L Calcium (8.4-10.2) mg/dL Phosphorus 8.1 H (2.5-4.5) mg/dL Magnesium 1.4 L (1.6-2.3) mg/dL AST 71 H (14-36) U/L ALT 110 H (4-34) U/L Alkaline Phosphatase 151 H (38-126) U/L Albumin 3.1 L (3.5-5.0) g/dL Procalcitonin (0.02-0.09) ng/mL TSH (0.465-4.680) mIU/L Free T4 (0.78-2.19) ng/dL Cortisol (3.1-22.4) UG/DL Urine Appearance (Clear) Urine Protein (Negative) Urine Blood (Negative) Urine WBC (0-5) /hpf Urine Bacteria (None) /hpf Hyaline Casts (0-2) /lpf Urine Mucus (None) /hpf Urine Osmolality 289 L (400-1100) mOsm/kg U Tricyclic Antidepress (NotDetected) U Benzodiazepines Scrn (NotDetected) 07/29/23 07/29/23 07/29/23 Range/Units 18:50 19:15 19:46 WBC (3.8-10.6) k/uL RBC (3.80-5.40) m/uL Hgb (11.4-16.0) gm/dL Hct (34.0-46.0) % MCV (80.0-100.0) fL MCH (25.0-35.0) pg RDW (11.5-15.5) % Plt Count (150-450) k/uL Neutrophils # (Manual) (1.3-7.7) k/uL Lymphocytes # (Manual) (1.0-4.8) k/uL Metamyelocytes # (Man) (0) k/uL Myelocytes # (Manual) (0) k/uL Nucleated RBCs (0-0) /100 WBC Macrocytosis PT (10.0-12.5) sec INR (<1.2) APTT (22.0-30.0) sec D-Dimer (<0.60) mg/L FEU ABG pCO2 (35-45) mmHg ABG pO2 (83-108) mmHg ABG HCO3 (21-25) mmol/L ABG Total CO2 (19-24) mmol/L VBG pH 7.16 L* (7.31-7.41) VBG pCO2 34 L (37-51) mmHg VBG HCO3 12 L (24-28) mmol/L Sodium (137-145) mmol/L Potassium (3.5-5.1) mmol/L Chloride (98-107) mmol/L Carbon Dioxide (22-30) mmol/L BUN (7-17) mg/dL Creatinine (0.52-1.04) mg/dL Glucose (74-99) mg/dL POC Glucose (mg/dL) (70-110) mg/dL Osmolality 296 H (275-295) mOsm/kg Plasma Lactic Acid [place] (0.7-2.0) mmol/L Calcium (8.4-10.2) mg/dL Phosphorus (2.5-4.5) mg/dL Magnesium (1.6-2.3) mg/dL AST (14-36) U/L ALT (4-34) U/L Alkaline Phosphatase (38-126) U/L Albumin (3.5-5.0) g/dL Procalcitonin (0.02-0.09) ng/mL TSH (0.465-4.680) mIU/L Free T4 (0.78-2.19) ng/dL Cortisol (3.1-22.4) UG/DL Urine Appearance (Clear) Urine Protein (Negative) Urine Blood (Negative) Urine WBC (0-5) /hpf Urine Bacteria (None) /hpf Hyaline Casts (0-2) /lpf Urine Mucus (None) /hpf Urine Osmolality (400-1100) mOsm/kg U Tricyclic Antidepress Detected H (NotDetected) U Benzodiazepines Scrn Detected H (NotDetected) 07/29/23 07/30/23 07/30/23 Range/Units 22:36 03:13 03:13 WBC 0.9 L* (3.8-10.6) k/uL RBC 2.06 L (3.80-5.40) m/uL Hgb 7.4 L D (11.4-16.0) gm/dL Hct 22.9 L (34.0-46.0) % MCV 110.8 H (80.0-100.0) fL MCH 36.0 H (25.0-35.0) pg RDW 16.3 H (11.5-15.5) % Plt Count 106 L (150-450) k/uL Neutrophils # (Manual) (1.3-7.7) k/uL Lymphocytes # (Manual) (1.0-4.8) k/uL Metamyelocytes # (Man) (0) k/uL Myelocytes # (Manual) (0) k/uL Nucleated RBCs (0-0) /100 WBC Macrocytosis Marked A PT (10.0-12.5) sec INR (<1.2) APTT (22.0-30.0) sec D-Dimer (<0.60) mg/L FEU ABG pCO2 (35-45) mmHg ABG pO2 (83-108) mmHg ABG HCO3 (21-25) mmol/L ABG Total CO2 (19-24) mmol/L VBG pH (7.31-7.41) VBG pCO2 (37-51) mmHg VBG HCO3 (24-28) mmol/L Sodium 133 L (137-145) mmol/L Potassium (3.5-5.1) mmol/L Chloride 109 H (98-107) mmol/L Carbon Dioxide 10 L (22-30) mmol/L BUN 55 H (7-17) mg/dL Creatinine 3.37 H (0.52-1.04) mg/dL Glucose 114 H (74-99) mg/dL POC Glucose (mg/dL) 118 H (70-110) mg/dL Osmolality (275-295) mOsm/kg Plasma Lactic Acid [place] (0.7-2.0) mmol/L Calcium 7.3 L (8.4-10.2) mg/dL Phosphorus 5.4 H (2.5-4.5) mg/dL Magnesium 1.2 L (1.6-2.3) mg/dL AST 53 H (14-36) U/L ALT 82 H (4-34) U/L Alkaline Phosphatase 129 H (38-126) U/L Albumin 2.6 L (3.5-5.0) g/dL Procalcitonin (0.02-0.09) ng/mL TSH (0.465-4.680) mIU/L Free T4 (0.78-2.19) ng/dL Cortisol (3.1-22.4) UG/DL Urine Appearance (Clear) Urine Protein (Negative) Urine Blood (Negative) Urine WBC (0-5) /hpf Urine Bacteria (None) /hpf Hyaline Casts (0-2) /lpf Urine Mucus (None) /hpf Urine Osmolality (400-1100) mOsm/kg U Tricyclic Antidepress (NotDetected) U Benzodiazepines Scrn (NotDetected) 07/30/23 07/30/23 07/30/23 Range/Units 03:13 08:21 08:30 WBC (3.8-10.6) k/uL RBC (3.80-5.40) m/uL Hgb (11.4-16.0) gm/dL Hct (34.0-46.0) % MCV (80.0-100.0) fL MCH (25.0-35.0) pg RDW (11.5-15.5) % Plt Count (150-450) k/uL Neutrophils # (Manual) (1.3-7.7) k/uL Lymphocytes # (Manual) (1.0-4.8) k/uL Metamyelocytes # (Man) (0) k/uL Myelocytes # (Manual) (0) k/uL Nucleated RBCs (0-0) /100 WBC Macrocytosis PT 13.2 H (10.0-12.5) sec INR 1.2 H (<1.2) APTT 33.8 H (22.0-30.0) sec D-Dimer 3.98 H (<0.60) mg/L FEU ABG pCO2 (35-45) mmHg ABG pO2 (83-108) mmHg ABG HCO3 (21-25) mmol/L ABG Total CO2 (19-24) mmol/L VBG pH (7.31-7.41) VBG pCO2 (37-51) mmHg VBG HCO3 (24-28) mmol/L Sodium (137-145) mmol/L Potassium (3.5-5.1) mmol/L Chloride (98-107) mmol/L Carbon Dioxide (22-30) mmol/L BUN (7-17) mg/dL Creatinine (0.52-1.04) mg/dL Glucose (74-99) mg/dL POC Glucose (mg/dL) (70-110) mg/dL Osmolality (275-295) mOsm/kg Plasma Lactic Acid [place] (0.7-2.0) mmol/L Calcium (8.4-10.2) mg/dL Phosphorus (2.5-4.5) mg/dL Magnesium (1.6-2.3) mg/dL AST (14-36) U/L ALT (4-34) U/L Alkaline Phosphatase (38-126) U/L Albumin (3.5-5.0) g/dL Procalcitonin 27.70 H (0.02-0.09) ng/mL TSH 0.338 L (0.465-4.680) mIU/L Free T4 0.60 L (0.78-2.19) ng/dL Cortisol 33.9 H (3.1-22.4) UG/DL Urine Appearance (Clear) Urine Protein (Negative) Urine Blood (Negative) Urine WBC (0-5) /hpf Urine Bacteria (None) /hpf Hyaline Casts (0-2) /lpf Urine Mucus (None) /hpf Urine Osmolality (400-1100) mOsm/kg U Tricyclic Antidepress (NotDetected) U Benzodiazepines Scrn (NotDetected) 07/30/23 07/30/23 Range/Units 09:46 15:45 WBC (3.8-10.6) k/uL RBC (3.80-5.40) m/uL Hgb (11.4-16.0) gm/dL Hct (34.0-46.0) % MCV (80.0-100.0) fL MCH (25.0-35.0) pg RDW (11.5-15.5) % Plt Count (150-450) k/uL Neutrophils # (Manual) (1.3-7.7) k/uL Lymphocytes # (Manual) (1.0-4.8) k/uL Metamyelocytes # (Man) (0) k/uL Myelocytes # (Manual) (0) k/uL Nucleated RBCs (0-0) /100 WBC Macrocytosis PT (10.0-12.5) sec INR (<1.2) APTT 67.7 H (22.0-30.0) sec D-Dimer (<0.60) mg/L FEU ABG pCO2 27 L (35-45) mmHg ABG pO2 81 L (83-108) mmHg ABG HCO3 16 L (21-25) mmol/L ABG Total CO2 17 L (19-24) mmol/L VBG pH (7.31-7.41) VBG pCO2 (37-51) mmHg VBG HCO3 (24-28) mmol/L Sodium (137-145) mmol/L Potassium (3.5-5.1) mmol/L Chloride (98-107) mmol/L Carbon Dioxide (22-30) mmol/L BUN (7-17) mg/dL Creatinine (0.52-1.04) mg/dL Glucose (74-99) mg/dL POC Glucose (mg/dL) (70-110) mg/dL Osmolality (275-295) mOsm/kg Plasma Lactic Acid [place] (0.7-2.0) mmol/L Calcium (8.4-10.2) mg/dL Phosphorus (2.5-4.5) mg/dL Magnesium (1.6-2.3) mg/dL AST (14-36) U/L ALT (4-34) U/L Alkaline Phosphatase (38-126) U/L Albumin (3.5-5.0) g/dL Procalcitonin (0.02-0.09) ng/mL TSH (0.465-4.680) mIU/L Free T4 (0.78-2.19) ng/dL Cortisol (3.1-22.4) UG/DL Urine Appearance (Clear) Urine Protein (Negative) Urine Blood (Negative) Urine WBC (0-5) /hpf Urine Bacteria (None) /hpf Hyaline Casts (0-2) /lpf Urine Mucus (None) /hpf Urine Osmolality (400-1100) mOsm/kg U Tricyclic Antidepress (NotDetected) U Benzodiazepines Scrn (NotDetected) Microbiology - Last 24 Hours (Table) 07/29/23 21:00 Blood Culture Gram Stain - Preliminary Blood 07/29/23 21:15 Blood Culture Gram Stain - Preliminary Blood Assessment and Plan (1) Sepsis Status: Acute Code(s): A41.9 - SEPSIS, UNSPECIFIED ORGANISM SNOMED Code(s): 01281938 (2) Gram-negative bacteremia Status: Acute Priority: High Code(s): R78.81 - BACTEREMIA SNOMED Code(s): 002025627588 Plan: 1patient presented to hospital with sepsis in this patient who did have a fever tachycardia hypotension significant leukopenia now with evidence of Enterobacter bacteremia in this patient with significant lower back pain, some abnormality of the L3 was seen on the CT abdominal pelvis concern for possible discitis or osteomyelitis as no other focus of infection with clinically as well as on the basis of investigation done so far 2-patient with a new insufficiency high risk of nephrotoxicity from investigation as well as medication 3-blood cultures will be repeated document clearance and check inflammatory markers 4-cefepime to continue dose adjusted by the Pharmacy to the kidney function 5-await MRI scheduled for tomorrow We will follow on clinical condition and cultures to further adjust medication if needed Thank you for this consultation we will follow the patient along with you Dictation was produced using [employer] dictation software. please excuse any grammatical, word or spelling errors. Time with Patient: Greater than 30
[2023-07-30 23:14] LABS: Platelet Count 67 k/uL (150-450)
[2023-07-31] MEDS: MORPHINE SULFATE 4 MG/ML SYRINGE IV PRN (03:21)
[2023-07-31 04:30] LABS: Anisocytosis Slight; HCT 20.4 % (34.0-46.0); MCH 35.8 pg (25.0-35.0); MCHC 33.1 g/dL (31.0-37.0); MCV 108.2 fL (80.0-100.0); Mean Platelet Volume 8.8; RBC 1.89 m/uL (3.80-5.40); RDW 16.4 % (11.5-15.5)
[2023-07-31 05:01] LABS: WBC 0.9 k/uL (3.8-10.6)
[2023-07-31 05:03] LABS: HGB 6.8 gm/dL (11.4-16.0)
[2023-07-31 05:04] LABS: Macrocytosis Marked; Platelet Count 54 k/uL (150-450)
[2023-07-31] MEDS: DILTIAZEM 125 MG in SODIUM CHLORIDE 0.9% 100 ML IV SCH (06:18)
[2023-07-31] MEDS: DILTIAZEM DRIP BOLUS FROM BAG 1 MG SOLN IV ONE (06:18)
[2023-07-31] MEDS: AMIODARONE 360 MG in DEXTROSE 5% IN WATER 200 ML IV SCH (06:46)
[2023-07-31 07:25] LABS: INR 1.2 (<1.2); Partial Thromboplastin Time 32.5 sec (22.0-30.0); Prothrombin Time 13.1 sec (10.0-12.5)
[2023-07-31 07:39] LABS: ALT 52 U/L (4-34); AST 43 U/L (14-36); African American GFR (CKD) 41 (>60 ml/min/1.73 sqM); Albumin 2.2 g/dL (3.5-5.0); Alkaline Phosphatase 121 U/L (38-126); Anion Gap 6 mmol/L; Blood Urea Nitrogen 35 mg/dL (7-17); Calcium 7.3 mg/dL (8.4-10.2); Carbon Dioxide 23 mmol/L (22-30); Chloride 104 mmol/L (98-107); Glucose 154 mg/dL (74-99); Magnesium 1.7 mg/dL (1.6-2.3); Non-African American GFR(CKD) 36 (>60 ml/min/1.73 sqM); Potassium 2.9 mmol/L (3.5-5.1); Sodium 133 mmol/L (137-145); Total Bilirubin 0.4 mg/dL (0.2-1.3)
--- NOTE | 2023-07-31 08:30 | XR ---
EXAMINATION TYPE: XR chest 1V portable DATE OF EXAM: 07/31/2023 COMPARISON: 07/30/2023 HISTORY: A. Fib TECHNIQUE: Single frontal view of the chest is obtained. FINDINGS: There is no focal air space opacity, pleural effusion, or pneumothorax seen. The cardiac silhouette size is within normal limits. Diffuse osteopenia.. Elevated hemidiaphragm with limited ins piration. Previous right breast surgery. IMPRESSION: No acute process.
--- NOTE | 2023-07-31 08:32 | P.CONS ---
History of Present Illness - Reason for Consult Consult date: 07/30/23 bicytopenia Requesting physician: Jamia Meek - Chief Complaint ALEXANDRA - History of Present Illness Mrs. Sanchez is a 63-year-old female who has been seen in the past by Dr. Zoë Peace. PMH significant for depression currently on Depakote along with small bowel resection in 2011 due to bowel incarceration from hernia who was referred to Hematology for evaluation of macrocytic anemia back in Mar 2023. Progressive macrocytic anemia with hemoglobin ranging from 9-10 MCV ranging from 103-108 noted to have started in about 2020. She had been diagnosed with a B12 deficiency in the past, was not on any active treatment for the same. Work up was neg, flow cytometry was neg. [place] that macrocytosis was 2/2 depakote given the timing of development of macrocytosis and depakote initiation. She has received several PRBC transfusions when she was admitted late last year for GI bleed. She has had endoscopy, no pathology, followed by GI for adenomas. She did have rt inguinal LN excision 03/28/23, neg for malignancy. She is currently admitted with altered mental status and acute kidney injury. She is in the ICU for hypotension and multiorgan failure. She has a recent diagnosis of pulmonary embolism in May 2023, no provoking factor, on blood thinners. We are consulted for pancytopenia. Review of Systems Was able to answer some questions, she drifted back off to sleep quickly Past Medical History Past Medical History: GERD/Reflux, Pulmonary Embolus (PE) Additional Past Medical History / Comment(s): CHANGE IN BOWEL MOVEMENTS., HAVING PAIN IN STOMACH ,REFLUX WITH NAUSEA AND VOMITING. History of Any Multi-Drug Resistant Organisms: None Reported Past Surgical History: Appendectomy, Bowel Resection, Breast Surgery, Section, Cholecystectomy, Hernia Repair, Tubal Ligation Additional Past Surgical History / Comment(s): HERNIATED BOWEL REQUIRED BOWEL RESECTION., BREAST IMPLANTS, Pt. states "L breast imploded and the R implant needs to be removed. Past Anesthesia/Blood Transfusion Reactions: No Reported Reaction Additional Past Anesthesia/Blood Transfusion Reaction / Comm: HX OF BLOOD TRANSFUSION-NO REACTION Past Psychological History: Anxiety, Bipolar, Depression Smoking Status: Current every day smoker Past Alcohol Use History: None Reported Past Drug Use History: None Reported - Past Family History Mother Family Medical History: No Reported History Father Additional Family Medical History / Comment(s): COMMITTED SUICIDE AT AGE 28 Medications and Allergies Home Medications Medication Instructions Recorded Confirmed Type ALPRAZolam [Xanax] 1 mg PO TID PRN 05/25/22 07/29/23 History OXcarbazepine [Trileptal] 300 mg PO TID 05/25/22 07/29/23 History Apixaban [Eliquis] 5 mg PO BID 03/08/23 07/29/23 History Cyanocobalamin (Vitamin B-12) 1,000 mcg PO DAILY 03/08/23 07/29/23 History [Vitamin B-12] Ferrous Sulfate [Feosol] 325 mg PO DAILY 03/08/23 07/29/23 History Omeprazole 40 mg PO BID 03/08/23 07/29/23 History QUEtiapine [SEROquel] 1,200 mg PO HS 03/08/23 07/29/23 History methocarbamoL [Robaxin] 500 mg PO TID PRN 07/29/23 07/29/23 History Allergies Allergy/AdvReac Type Severity Reaction Status Date / Time No Known Allergies Allergy Verified 07/29/23 19:10 Physical Exam Vitals: Vital Signs Temp Pulse Resp BP BP Pulse Ox 07/30/23 07:00 115 H 21 92/50 97 07/30/23 06:45 116 H 18 91/48 97 07/30/23 06:30 115 H 18 91/48 96 07/30/23 06:15 115 H 20 72/45 97 07/30/23 06:00 115 H 19 84/45 97 07/30/23 05:45 117 H 21 87/54 07/30/23 05:30 121 H 23 87/54 98 07/30/23 05:15 122 H 26 H 88/49 93 L 07/30/23 05:00 122 H 20 83/50 96 07/30/23 04:45 125 H 29 H 89/47 94 L 07/30/23 04:30 124 H 26 H 89/47 94 L 07/30/23 04:15 125 H 25 H 87/47 96 07/30/23 04:00 102.1 F H 124 H 25 H 87/53 96 07/30/23 03:45 125 H 26 H 89/59 96 07/30/23 03:30 128 H 13 88/58 97 07/30/23 03:15 124 H 28 H 97/60 98 07/30/23 03:00 123 H 14 89/64 98 07/30/23 02:45 124 H 30 H 73/55 98 07/30/23 02:30 124 H 22 88/52 98 07/30/23 02:15 122 H 24 88/52 98 07/30/23 01:45 122 H 24 79/52 98 07/30/23 01:30 123 H 12 79/52 98 07/30/23 01:00 122 H 24 78/51 99 07/30/23 00:27 120 H 15 72/50 98 07/30/23 00:15 122 H 26 H 77/52 99 07/30/23 00:01 98.3 F 17 77/52 07/30/23 00:00 98.3 F 125 H 22 76/45 98 07/29/23 23:45 126 H 25 H 76/47 97 07/29/23 23:23 97 07/29/23 23:15 129 H 19 76/47 98 07/29/23 23:00 131 H 24 84/47 95 07/29/23 22:45 99.2 F 134 H 22 81/56 97 07/29/23 21:46 98.2 F 07/29/23 21:30 133 H 22 83/67 95 07/29/23 21:00 130 H 20 89/69 93 L 07/29/23 20:45 129 H 24 99/77 96 07/29/23 20:30 124 H 23 75/53 100 07/29/23 20:00 124 H 18 84/52 99 07/29/23 19:30 121 H 30 H 82/49 97 07/29/23 19:00 122 H 19 79/50 96 07/29/23 18:45 124 H 18 79/54 94 L 07/29/23 18:24 122 H 18 74/54 98 07/29/23 18:00 120 H 18 81/46 96 07/29/23 17:00 124 H 24 75/46 98 07/29/23 16:45 124 H 24 73/48 98 07/29/23 16:02 98.1 F 67 18 98/57 99 Intake and Output 07/29/23 07/30/23 07/30/23 22:59 06:59 14:59 Intake Total 2231.253 132.367 Output Total 1900 100 Balance 331.253 32.367 Intake: IV 1570 125 Dextrose 5% in Water 1, 570 125 000 ml @ 125 mls/hr IV . Q9H12M MARIE with Sodium Bicarb (1 Meq/ml) 150 ml Rx#:[id number] Sodium Chloride 0.9% 1, 1000 000 ml @ 999 mls/hr IV . Q1H1M ONE Rx#:[id number] Intake, IV Titration 61.253 7.367 Amount Norepinephrine 4 mg In 61.253 7.367 Sodium Chloride 0.9% 250 ml @ 0.03 MCG/KG/MIN 8. 036 mls/hr IV .Q24H MARIE Rx#:[id number] Oral 600 Output: Urine 1900 100 Other: Voiding Method Indwelling Catheter Weight 70.307 kg 75.8 kg - Constitutional General appearance: average body habitus, cooperative, no acute distress - EENT Eyes: anicteric sclerae, EOMI ENT: hearing grossly normal - Neck Neck: no lymphadenopathy - Respiratory Respiratory: bilateral: CTA - Cardiovascular tachy Heart sounds: normal: S1, S2 Abnormal Heart Sounds: no systolic murmur, no diastolic murmur, no rub, no S3 Gallop, no S4 Gallop, no click, no other leg Peripheral Edema: bilateral: None - Gastrointestinal General gastrointestinal: no absent bowel sounds, decreased bowel sounds, distended, no hepatomegaly, no hyperactive bowel sounds, no normal bowel sounds, no organomegaly, no rigid, no scaphoid, soft, no splenomegaly, tenderness (+ rebound,rt abd>lt abd), no umbilical hernia, no ventral hernia - Integumentary Integumentary: normal - Neurologic unable to completely assess, speech was normal, eyes opened spontaneously - Musculoskeletal Musculoskeletal: generalized weakness - Psychiatric Arousable to voice, oriented to self, place. Off on the time, did explain how she came to be at the hospital Results CBC & Chem 7: 07/31/23 04:12 07/30/23 03:13 Labs: Abnormal Lab Results - Last 24 Hours (Table) 07/29/23 07/29/23 07/29/23 Range/Units 16:44 16:44 16:44 WBC 1.0 L* (3.8-10.6) k/uL RBC 2.53 L (3.80-5.40) m/uL Hgb 9.1 L (11.4-16.0) gm/dL Hct 27.8 L (34.0-46.0) % MCV 109.6 H (80.0-100.0) fL MCH 35.9 H (25.0-35.0) pg RDW 16.3 H (11.5-15.5) % Plt Count (150-450) k/uL Neutrophils # (Manual) 0.60 L (1.3-7.7) k/uL Lymphocytes # (Manual) 0.11 L (1.0-4.8) k/uL Metamyelocytes # (Man) 0.17 H (0) k/uL Myelocytes # (Manual) 0.08 H (0) k/uL Nucleated RBCs 2 H (0-0) /100 WBC Macrocytosis Marked A PT 13.6 H (10.0-12.5) sec INR 1.3 H (<1.2) APTT 31.2 H (22.0-30.0) sec D-Dimer 3.32 H (<0.60) mg/L FEU VBG pH (7.31-7.41) VBG pCO2 (37-51) mmHg VBG HCO3 (24-28) mmol/L Sodium (137-145) mmol/L Potassium (3.5-5.1) mmol/L Chloride (98-107) mmol/L Carbon Dioxide (22-30) mmol/L BUN (7-17) mg/dL Creatinine (0.52-1.04) mg/dL Glucose (74-99) mg/dL POC Glucose (mg/dL) (70-110) mg/dL Osmolality (275-295) mOsm/kg Plasma Lactic Acid [place] (0.7-2.0) mmol/L Calcium (8.4-10.2) mg/dL Phosphorus (2.5-4.5) mg/dL Magnesium (1.6-2.3) mg/dL AST (14-36) U/L ALT (4-34) U/L Alkaline Phosphatase (38-126) U/L Albumin (3.5-5.0) g/dL TSH (0.465-4.680) mIU/L Free T4 (0.78-2.19) ng/dL Urine Appearance Cloudy H (Clear) Urine Protein 1+ H (Negative) Urine Blood Trace H (Negative) Urine WBC 22 H (0-5) /hpf Urine Bacteria Rare H (None) /hpf Hyaline Casts 63 H (0-2) /lpf Urine Mucus Occasional H (None) /hpf U Tricyclic Antidepress (NotDetected) U Benzodiazepines Scrn (NotDetected) 07/29/23 07/29/23 07/29/23 Range/Units 16:44 16:44 18:50 WBC (3.8-10.6) k/uL RBC (3.80-5.40) m/uL Hgb (11.4-16.0) gm/dL Hct (34.0-46.0) % MCV (80.0-100.0) fL MCH (25.0-35.0) pg RDW (11.5-15.5) % Plt Count (150-450) k/uL Neutrophils # (Manual) (1.3-7.7) k/uL Lymphocytes # (Manual) (1.0-4.8) k/uL Metamyelocytes # (Man) (0) k/uL Myelocytes # (Manual) (0) k/uL Nucleated RBCs (0-0) /100 WBC Macrocytosis PT (10.0-12.5) sec INR (<1.2) APTT (22.0-30.0) sec D-Dimer (<0.60) mg/L FEU VBG pH (7.31-7.41) VBG pCO2 (37-51) mmHg VBG HCO3 (24-28) mmol/L Sodium 129 L (137-145) mmol/L Potassium 5.6 H (3.5-5.1) mmol/L Chloride (98-107) mmol/L Carbon Dioxide 8 L* (22-30) mmol/L BUN 68 H (7-17) mg/dL Creatinine 5.13 H (0.52-1.04) mg/dL Glucose 101 H (74-99) mg/dL POC Glucose (mg/dL) (70-110) mg/dL Osmolality 296 H (275-295) mOsm/kg Plasma Lactic Acid [place] 2.5 H* (0.7-2.0) mmol/L Calcium (8.4-10.2) mg/dL Phosphorus 8.1 H (2.5-4.5) mg/dL Magnesium 1.4 L (1.6-2.3) mg/dL AST 71 H (14-36) U/L ALT 110 H (4-34) U/L Alkaline Phosphatase 151 H (38-126) U/L Albumin 3.1 L (3.5-5.0) g/dL TSH (0.465-4.680) mIU/L Free T4 (0.78-2.19) ng/dL Urine Appearance (Clear) Urine Protein (Negative) Urine Blood (Negative) Urine WBC (0-5) /hpf Urine Bacteria (None) /hpf Hyaline Casts (0-2) /lpf Urine Mucus (None) /hpf U Tricyclic Antidepress (NotDetected) U Benzodiazepines Scrn (NotDetected) 07/29/23 07/29/23 07/29/23 Range/Units 19:15 19:46 22:36 WBC (3.8-10.6) k/uL RBC (3.80-5.40) m/uL Hgb (11.4-16.0) gm/dL Hct (34.0-46.0) % MCV (80.0-100.0) fL MCH (25.0-35.0) pg RDW (11.5-15.5) % Plt Count (150-450) k/uL Neutrophils # (Manual) (1.3-7.7) k/uL Lymphocytes # (Manual) (1.0-4.8) k/uL Metamyelocytes # (Man) (0) k/uL Myelocytes # (Manual) (0) k/uL Nucleated RBCs (0-0) /100 WBC Macrocytosis PT (10.0-12.5) sec INR (<1.2) APTT (22.0-30.0) sec D-Dimer (<0.60) mg/L FEU VBG pH 7.16 L* (7.31-7.41) VBG pCO2 34 L (37-51) mmHg VBG HCO3 12 L (24-28) mmol/L Sodium (137-145) mmol/L Potassium (3.5-5.1) mmol/L Chloride (98-107) mmol/L Carbon Dioxide (22-30) mmol/L BUN (7-17) mg/dL Creatinine (0.52-1.04) mg/dL Glucose (74-99) mg/dL POC Glucose (mg/dL) 118 H (70-110) mg/dL Osmolality (275-295) mOsm/kg Plasma Lactic Acid [place] (0.7-2.0) mmol/L Calcium (8.4-10.2) mg/dL Phosphorus (2.5-4.5) mg/dL Magnesium (1.6-2.3) mg/dL AST (14-36) U/L ALT (4-34) U/L Alkaline Phosphatase (38-126) U/L Albumin (3.5-5.0) g/dL TSH (0.465-4.680) mIU/L Free T4 (0.78-2.19) ng/dL Urine Appearance (Clear) Urine Protein (Negative) Urine Blood (Negative) Urine WBC (0-5) /hpf Urine Bacteria (None) /hpf Hyaline Casts (0-2) /lpf Urine Mucus (None) /hpf U Tricyclic Antidepress Detected H (NotDetected) U Benzodiazepines Scrn Detected H (NotDetected) 07/30/23 07/30/23 07/30/23 Range/Units 03:13 03:13 03:13 WBC 0.9 L* (3.8-10.6) k/uL RBC 2.06 L (3.80-5.40) m/uL Hgb 7.4 L D (11.4-16.0) gm/dL Hct 22.9 L (34.0-46.0) % MCV 110.8 H (80.0-100.0) fL MCH 36.0 H (25.0-35.0) pg RDW 16.3 H (11.5-15.5) % Plt Count 106 L (150-450) k/uL Neutrophils # (Manual) (1.3-7.7) k/uL Lymphocytes # (Manual) (1.0-4.8) k/uL Metamyelocytes # (Man) (0) k/uL Myelocytes # (Manual) (0) k/uL Nucleated RBCs (0-0) /100 WBC Macrocytosis Marked A PT (10.0-12.5) sec INR (<1.2) APTT (22.0-30.0) sec D-Dimer (<0.60) mg/L FEU VBG pH (7.31-7.41) VBG pCO2 (37-51) mmHg VBG HCO3 (24-28) mmol/L Sodium 133 L (137-145) mmol/L Potassium (3.5-5.1) mmol/L Chloride 109 H (98-107) mmol/L Carbon Dioxide 10 L (22-30) mmol/L BUN 55 H (7-17) mg/dL Creatinine 3.37 H (0.52-1.04) mg/dL Glucose 114 H (74-99) mg/dL POC Glucose (mg/dL) (70-110) mg/dL Osmolality (275-295) mOsm/kg Plasma Lactic Acid [place] (0.7-2.0) mmol/L Calcium 7.3 L (8.4-10.2) mg/dL Phosphorus 5.4 H (2.5-4.5) mg/dL Magnesium 1.2 L (1.6-2.3) mg/dL AST 53 H (14-36) U/L ALT 82 H (4-34) U/L Alkaline Phosphatase 129 H (38-126) U/L Albumin 2.6 L (3.5-5.0) g/dL TSH 0.338 L (0.465-4.680) mIU/L Free T4 0.60 L (0.78-2.19) ng/dL Urine Appearance (Clear) Urine Protein (Negative) Urine Blood (Negative) Urine WBC (0-5) /hpf Urine Bacteria (None) /hpf Hyaline Casts (0-2) /lpf Urine Mucus (None) /hpf U Tricyclic Antidepress (NotDetected) U Benzodiazepines Scrn (NotDetected) CT scan - abdomen: report reviewed CT scan - chest: report reviewed CT Scan - head: report reviewed CT scan - pelvis: report reviewed Assessment and Plan (1) Pancytopenia Current Visit: Yes Status: Acute Priority: High Code(s): D61.818 - OTHER PANCYTOPENIA SNOMED Code(s): 281194931 (2) Neutropenic colitis Current Visit: Yes Status: Suspected Priority: High Code(s): D70.9 - NEUTROPENIA, UNSPECIFIED; K52.89 - OTHER SPECIFIED NONINFECTIVE GASTROENTERITIS AND COLITIS SNOMED Code(s): 326623962 Plan: Pancytopenia -Anemia hemoglobin 7.4. Transfuse for hemoglobin less than 7 or if patient is symptomatic -Platelets 106,000. No specific instructions at this time. Patient is okay to continue anticoagulation for recent PE in May. Monitor coags and acutely ill patient. -G-CSF was ordered by Critical Care. Unclear the exact etiology of pancytopenia at this time. Case discussed with Attending. -Suspect pancytopenia may be related to sepsis. Concerns also for underlying marrow problem. Work up ordered. Abdominal pain, neutropenia -Concerns for neutropenic typhilitis -Ultrasound of the abdomen ordered -NPO diet for now Attests: I have seen and examined pt, performed H&P, developed impression and plan of care. Discussed with dictator. Agree with documentation, dictated as a scribe.
[2023-07-31] MEDS: ONDANSETRON 4 MG/2 ML VIAL IVP PRN (08:38)
[2023-07-31 08:48] LABS: Ethanol Negative (Negative); Isopropanol Negative (Negative)
[2023-07-31 09:17] LABS: C Reactive Protein 39.1 mg/dL (<1.0)
[2023-07-31 09:22] LABS: Anisocytosis Slight; HCT 24.5 % (34.0-46.0); MCH 34.7 pg (25.0-35.0); MCHC 32.7 g/dL (31.0-37.0); MCV 106.1 fL (80.0-100.0); Macrocytosis Marked; Mean Platelet Volume 8.7; Poikilocytosis Slight; RBC 2.31 m/uL (3.80-5.40); RDW 18.6 % (11.5-15.5); Reticulocyte % 0.9 % (0.5-2.0)
[2023-07-31 09:37] LABS: Platelet Count 67 k/uL (150-450); WBC 0.8 k/uL (3.8-10.6)
--- NOTE | 2023-07-31 09:42 | P.PN ---
Subjective Patient is seen for follow-up for acute kidney injury. She was admitted with severe metabolic acidosis and mental status changes. Currently maintained on bicarb drip. Labs are pending from today. Renal function has been improving. Good urine output. 100-150 ML per hour. Patient remains on low-dose levo fed. Objective - Vital Signs Vital signs: Vital Signs Temp 97.9 F 07/31/23 06:30 Pulse 113 H 07/31/23 07:15 Resp 19 07/31/23 07:15 BP 114/58 07/31/23 07:15 Pulse Ox 96 07/31/23 07:15 FiO2 Intake & Output 07/30/23 07/31/23 07/31/23 18:59 06:59 18:59 Intake Total 2502.956 6377.076 125 Output Total 1765 1400 100 Balance -72.253 949.076 25 Weight 73.5 kg Intake: IV 1500 1500 125 Dextrose 5% in Water 1, 1500 1500 125 000 ml @ 125 mls/hr IV . Q9H12M MARIE with Sodium Bicarb (1 Meq/ml) 150 ml Rx#:[id number] Intake, IV Titration 192.747 389.076 Amount Heparin Sod,Pork in 0.45% 135.076 NaCl 25,000 unit In 0.45 % NaCl 1 250ml.bag @ 12 UNITS/KG/HR 9.096 mls/hr IV .Q24H MARIE Rx#: [id number] Norepinephrine 4 mg In 192.747 254.000 Sodium Chloride 0.9% 250 ml @ 0.03 MCG/KG/MIN 8. 036 mls/hr IV .Q24H MARIE Rx#:[id number] Blood Product 460 Rc As-1 Unit 230 [id number] Output: Urine 1765 1400 100 Other: Voiding Method Indwelling Catheter Indwelling Catheter - Exam Patient is awake and able to carry on conversation. Examination of the heart S1 and S2 Examination of the lungs bilateral breath sounds are heard Abdomen is soft nontender Examination of lower extremities shows no evidence of edema BE[facility] HAULER PUSHER exam shows patient is moving all 4 extremities - Labs CBC & Chem 7: 07/31/23 09:01 07/31/23 04:12 Labs: Abnormal Lab Results - Last 24 Hours (Table) 07/29/23 07/30/23 07/30/23 Range/Units 18:50 08:21 08:30 WBC (3.8-10.6) k/uL RBC (3.80-5.40) m/uL Hgb (11.4-16.0) gm/dL Hct (34.0-46.0) % MCV (80.0-100.0) fL MCH (25.0-35.0) pg RDW (11.5-15.5) % Plt Count (150-450) k/uL Macrocytosis PT 13.2 H (10.0-12.5) sec INR 1.2 H (<1.2) APTT 33.8 H (22.0-30.0) sec D-Dimer 3.98 H (<0.60) mg/L FEU ABG pCO2 (35-45) mmHg ABG pO2 (83-108) mmHg ABG HCO3 (21-25) mmol/L ABG Total CO2 (19-24) mmol/L Sodium (137-145) mmol/L Potassium (3.5-5.1) mmol/L BUN (7-17) mg/dL Creatinine (0.52-1.04) mg/dL Glucose (74-99) mg/dL Calcium (8.4-10.2) mg/dL Iron (50-170) UG/DL TIBC (228-460) UG/DL % Saturation (12.00-45.00) Transferrin (204.0-354.0) mg/dL AST (14-36) U/L ALT (4-34) U/L C-Reactive Protein (<1.0) mg/dL Total Protein (6.3-8.2) g/dL Albumin (3.5-5.0) g/dL Procalcitonin 27.70 H (0.02-0.09) ng/mL Urine Osmolality 289 L (400-1100) mOsm/kg Crossmatch 07/30/23 07/30/23 07/30/23 Range/Units 09:46 11:01 15:45 WBC (3.8-10.6) k/uL RBC (3.80-5.40) m/uL Hgb (11.4-16.0) gm/dL Hct (34.0-46.0) % MCV (80.0-100.0) fL MCH (25.0-35.0) pg RDW (11.5-15.5) % Plt Count (150-450) k/uL Macrocytosis PT (10.0-12.5) sec INR (<1.2) APTT 67.7 H (22.0-30.0) sec D-Dimer (<0.60) mg/L FEU ABG pCO2 27 L (35-45) mmHg ABG pO2 81 L (83-108) mmHg ABG HCO3 16 L (21-25) mmol/L ABG Total CO2 17 L (19-24) mmol/L Sodium (137-145) mmol/L Potassium (3.5-5.1) mmol/L BUN (7-17) mg/dL Creatinine (0.52-1.04) mg/dL Glucose (74-99) mg/dL Calcium (8.4-10.2) mg/dL Iron 15 L (50-170) UG/DL TIBC 133 L (228-460) UG/DL % Saturation 11.28 L (12.00-45.00) Transferrin 94.7 L (204.0-354.0) mg/dL AST (14-36) U/L ALT (4-34) U/L C-Reactive Protein (<1.0) mg/dL Total Protein (6.3-8.2) g/dL Albumin (3.5-5.0) g/dL Procalcitonin (0.02-0.09) ng/mL Urine Osmolality (400-1100) mOsm/kg Crossmatch 07/30/23 07/31/23 07/31/23 Range/Units 21:48 00:02 04:12 WBC 1.2 L* (3.8-10.6) k/uL RBC 1.85 L (3.80-5.40) m/uL Hgb 6.6 L* (11.4-16.0) gm/dL Hct 19.8 L* (34.0-46.0) % MCV 107.5 H (80.0-100.0) fL MCH 35.9 H (25.0-35.0) pg RDW 16.5 H (11.5-15.5) % Plt Count 67 L (150-450) k/uL Macrocytosis Marked A PT (10.0-12.5) sec INR (<1.2) APTT (22.0-30.0) sec D-Dimer (<0.60) mg/L FEU ABG pCO2 (35-45) mmHg ABG pO2 (83-108) mmHg ABG HCO3 (21-25) mmol/L ABG Total CO2 (19-24) mmol/L Sodium 133 L (137-145) mmol/L Potassium 2.9 L (3.5-5.1) mmol/L BUN 35 H (7-17) mg/dL Creatinine 1.55 H (0.52-1.04) mg/dL Glucose 154 H (74-99) mg/dL Calcium 7.3 L (8.4-10.2) mg/dL Iron (50-170) UG/DL TIBC (228-460) UG/DL % Saturation (12.00-45.00) Transferrin (204.0-354.0) mg/dL AST 43 H (14-36) U/L ALT 52 H (4-34) U/L C-Reactive Protein 39.1 H (<1.0) mg/dL Total Protein 6.0 L (6.3-8.2) g/dL Albumin 2.2 L (3.5-5.0) g/dL Procalcitonin (0.02-0.09) ng/mL Urine Osmolality (400-1100) mOsm/kg Crossmatch See Detail 07/31/23 07/31/23 07/31/23 Range/Units 04:12 04:12 06:04 WBC 0.9 L* (3.8-10.6) k/uL RBC 1.89 L (3.80-5.40) m/uL Hgb 6.8 L* (11.4-16.0) gm/dL Hct 20.4 L (34.0-46.0) % MCV 108.2 H (80.0-100.0) fL MCH 35.8 H (25.0-35.0) pg RDW 16.4 H (11.5-15.5) % Plt Count 54 L (150-450) k/uL Macrocytosis Marked A PT 13.1 H (10.0-12.5) sec INR 1.2 H (<1.2) APTT 35.2 H 32.5 H (22.0-30.0) sec D-Dimer 6.72 H (<0.60) mg/L FEU ABG pCO2 (35-45) mmHg ABG pO2 (83-108) mmHg ABG HCO3 (21-25) mmol/L ABG Total CO2 (19-24) mmol/L Sodium (137-145) mmol/L Potassium (3.5-5.1) mmol/L BUN (7-17) mg/dL Creatinine (0.52-1.04) mg/dL Glucose (74-99) mg/dL Calcium (8.4-10.2) mg/dL Iron (50-170) UG/DL TIBC (228-460) UG/DL % Saturation (12.00-45.00) Transferrin (204.0-354.0) mg/dL AST (14-36) U/L ALT (4-34) U/L C-Reactive Protein (<1.0) mg/dL Total Protein (6.3-8.2) g/dL Albumin (3.5-5.0) g/dL Procalcitonin (0.02-0.09) ng/mL Urine Osmolality (400-1100) mOsm/kg Crossmatch 07/31/23 Range/Units 09:01 WBC 0.8 L* (3.8-10.6) k/uL RBC 2.31 L (3.80-5.40) m/uL Hgb 8.0 L (11.4-16.0) gm/dL Hct 24.5 L (34.0-46.0) % MCV 106.1 H (80.0-100.0) fL MCH (25.0-35.0) pg RDW 18.6 H (11.5-15.5) % Plt Count 67 L (150-450) k/uL Macrocytosis Marked A PT (10.0-12.5) sec INR (<1.2) APTT (22.0-30.0) sec D-Dimer (<0.60) mg/L FEU ABG pCO2 (35-45) mmHg ABG pO2 (83-108) mmHg ABG HCO3 (21-25) mmol/L ABG Total CO2 (19-24) mmol/L Sodium (137-145) mmol/L Potassium (3.5-5.1) mmol/L BUN (7-17) mg/dL Creatinine (0.52-1.04) mg/dL Glucose (74-99) mg/dL Calcium (8.4-10.2) mg/dL Iron (50-170) UG/DL TIBC (228-460) UG/DL % Saturation (12.00-45.00) Transferrin (204.0-354.0) mg/dL AST (14-36) U/L ALT (4-34) U/L C-Reactive Protein (<1.0) mg/dL Total Protein (6.3-8.2) g/dL Albumin (3.5-5.0) g/dL Procalcitonin (0.02-0.09) ng/mL Urine Osmolality (400-1100) mOsm/kg Crossmatch Microbiology - Last 24 Hours (Table) 07/29/23 21:15 Blood Culture Gram Stain - Preliminary Blood Blood Culture - Preliminary Gram Neg Bacilli 07/29/23 21:00 Blood Culture Gram Stain - Preliminary Blood Blood Culture - Preliminary Gram Neg Bacilli Assessment and Plan Assessment: 1. Acute kidney injury, ATN, nonoliguric secondary to hypotension, currently improving. UA shows trace blood 1+ protein WBCs 22. CT abdomen shows no evidence of obstruction. 2. Anion gap metabolic acidosis secondary to acute kidney injury, other workup so far negative. Volatile alcohol screen also negative. Patient is currently maintained on bicarb drip. 3. Altered mentation secondary to possible element of uremia, metabolic encephalopathy. CT of the head is negative. Renal function is improving therefore I will hold off on hemodialysis. 4. Hypotension, maintained on empiric antibiotics for possible underlying sepsis. Status post fluid resuscitation. 5. Pancytopenia 6. Small to moderate pericardial effusion Plan: DC bicarb drip and switch to Ringer lactate Replace potassium Continue with antibiotics
[2023-07-31] MEDS: CALCIUM CARBONATE 500 MG CHEWABLE PO PRN (10:24)
[2023-07-31] MEDS: LACTATED RINGERS 1,000 ML IV SCH (10:24)
[2023-07-31] MEDS: POTASSIUM CHLORIDE 20 MEQ in WATER FOR INJECTION 1 100ML.BAG IVPB SCH (10:24)
[2023-07-31] MEDS: SODIUM FERRIC GLUCONAT-SUCROSE 125 MG in SODIUM CHLORIDE 0.9% 100 ML IVPB SCH (10:30)
[2023-07-31 12:39] LABS: Rouleaux Present
[2023-07-31] MEDS: methocarbamoL 500 MG TAB PO PRN (12:55)
[2023-07-31 13:28] LABS: Hepatitis A Antibody IgM Nonreactive (Nonreactive); Hepatitis B Core IgM Nonreactive (Nonreactive); Hepatitis B Surface Antigen Nonreactive (Nonreactive); Hepatitis C IgG Antibody Nonreactive (Nonreactive)
--- NOTE | 2023-07-31 14:45 | P.PN ---
Subjective Progress Note Date: 07/31/23 Principal diagnosis: pancytopenia In f/u pt has c/o severe back pain and indigestion. Her abd feels more bloated and is sore. She is only consuming small amts of fluids, thinks her abd/stomach feels worse after consuming oral intake. Nasal passages are dry from O2, small amt of blood when cleaning nose. No other bleeding to report. Objective - Vital Signs Vital signs: Vital Signs Temp 97.9 F 07/31/23 06:30 Pulse 113 H 07/31/23 07:15 Resp 19 07/31/23 07:15 BP 114/58 07/31/23 07:15 Pulse Ox 96 07/31/23 07:15 FiO2 Intake & Output 07/30/23 07/31/23 07/31/23 18:59 06:59 18:59 Intake Total 4372.800 2334.076 125 Output Total 1765 1400 100 Balance -72.253 949.076 25 Weight 73.5 kg Intake: IV 1500 1500 125 Dextrose 5% in Water 1, 1500 1500 125 000 ml @ 125 mls/hr IV . Q9H12M MARIE with Sodium Bicarb (1 Meq/ml) 150 ml Rx#:[id number] Intake, IV Titration 192.747 389.076 Amount Heparin Sod,Pork in 0.45% 135.076 NaCl 25,000 unit In 0.45 % NaCl 1 250ml.bag @ 12 UNITS/KG/HR 9.096 mls/hr IV .Q24H MARIE Rx#: [id number] Norepinephrine 4 mg In 192.747 254.000 Sodium Chloride 0.9% 250 ml @ 0.03 MCG/KG/MIN 8. 036 mls/hr IV .Q24H MARIE Rx#:[id number] Blood Product 460 Rc As-1 Unit 230 [id number] Output: Urine 1765 1400 100 Other: Voiding Method Indwelling Catheter Indwelling Catheter - Constitutional General appearance: Present: average body habitus, cooperative, mild distress - EENT Eyes: Present: anicteric sclerae, EOMI ENT: Present: hearing grossly normal - Respiratory Details: resp mildly labored at rest (2/2 discomfort) - Cardiovascular Details: tachy - Peripheral edema leg Peripheral Edema: bilateral: None - Gastrointestinal General gastrointestinal: Present: distended, soft, tenderness - Integumentary Integumentary: Present: normal - Neurologic Neurologic: Present: CNII-XII intact - Musculoskeletal Musculoskeletal: Present: generalized weakness, strength equal bilaterally - Psychiatric Psychiatric: Present: A&O x's 3, appropriate affect, intact judgment & insight - Labs CBC & Chem 7: 07/31/23 09:01 07/31/23 04:12 Labs: Abnormal Lab Results - Last 24 Hours (Table) 07/29/23 07/30/23 07/30/23 Range/Units 18:50 08:30 11:01 WBC (3.8-10.6) k/uL RBC (3.80-5.40) m/uL Hgb (11.4-16.0) gm/dL Hct (34.0-46.0) % MCV (80.0-100.0) fL MCH (25.0-35.0) pg RDW (11.5-15.5) % Plt Count (150-450) k/uL Macrocytosis PT (10.0-12.5) sec INR (<1.2) APTT (22.0-30.0) sec D-Dimer (<0.60) mg/L FEU Sodium (137-145) mmol/L Potassium (3.5-5.1) mmol/L BUN (7-17) mg/dL Creatinine (0.52-1.04) mg/dL Glucose (74-99) mg/dL Calcium (8.4-10.2) mg/dL Iron 15 L (50-170) UG/DL TIBC 133 L (228-460) UG/DL % Saturation 11.28 L (12.00-45.00) Transferrin 94.7 L (204.0-354.0) mg/dL AST (14-36) U/L ALT (4-34) U/L C-Reactive Protein (<1.0) mg/dL Total Protein (6.3-8.2) g/dL Albumin (3.5-5.0) g/dL Procalcitonin 27.70 H (0.02-0.09) ng/mL Urine Osmolality 289 L (400-1100) mOsm/kg Crossmatch 07/30/23 07/30/23 07/31/23 Range/Units 15:45 21:48 00:02 WBC 1.2 L* (3.8-10.6) k/uL RBC 1.85 L (3.80-5.40) m/uL Hgb 6.6 L* (11.4-16.0) gm/dL Hct 19.8 L* (34.0-46.0) % MCV 107.5 H (80.0-100.0) fL MCH 35.9 H (25.0-35.0) pg RDW 16.5 H (11.5-15.5) % Plt Count 67 L (150-450) k/uL Macrocytosis Marked A PT (10.0-12.5) sec INR (<1.2) APTT 67.7 H (22.0-30.0) sec D-Dimer (<0.60) mg/L FEU Sodium (137-145) mmol/L Potassium (3.5-5.1) mmol/L BUN (7-17) mg/dL Creatinine (0.52-1.04) mg/dL Glucose (74-99) mg/dL Calcium (8.4-10.2) mg/dL Iron (50-170) UG/DL TIBC (228-460) UG/DL % Saturation (12.00-45.00) Transferrin (204.0-354.0) mg/dL AST (14-36) U/L ALT (4-34) U/L C-Reactive Protein (<1.0) mg/dL Total Protein (6.3-8.2) g/dL Albumin (3.5-5.0) g/dL Procalcitonin (0.02-0.09) ng/mL Urine Osmolality (400-1100) mOsm/kg Crossmatch See Detail 07/31/23 07/31/23 07/31/23 Range/Units 04:12 04:12 04:12 WBC 0.9 L* (3.8-10.6) k/uL RBC 1.89 L (3.80-5.40) m/uL Hgb 6.8 L* (11.4-16.0) gm/dL Hct 20.4 L (34.0-46.0) % MCV 108.2 H (80.0-100.0) fL MCH 35.8 H (25.0-35.0) pg RDW 16.4 H (11.5-15.5) % Plt Count 54 L (150-450) k/uL Macrocytosis Marked A PT (10.0-12.5) sec INR (<1.2) APTT 35.2 H (22.0-30.0) sec D-Dimer (<0.60) mg/L FEU Sodium 133 L (137-145) mmol/L Potassium 2.9 L (3.5-5.1) mmol/L BUN 35 H (7-17) mg/dL Creatinine 1.55 H (0.52-1.04) mg/dL Glucose 154 H (74-99) mg/dL Calcium 7.3 L (8.4-10.2) mg/dL Iron (50-170) UG/DL TIBC (228-460) UG/DL % Saturation (12.00-45.00) Transferrin (204.0-354.0) mg/dL AST 43 H (14-36) U/L ALT 52 H (4-34) U/L C-Reactive Protein 39.1 H (<1.0) mg/dL Total Protein 6.0 L (6.3-8.2) g/dL Albumin 2.2 L (3.5-5.0) g/dL Procalcitonin (0.02-0.09) ng/mL Urine Osmolality (400-1100) mOsm/kg Crossmatch 07/31/23 07/31/23 Range/Units 06:04 09:01 WBC 0.8 L* (3.8-10.6) k/uL RBC 2.31 L (3.80-5.40) m/uL Hgb 8.0 L (11.4-16.0) gm/dL Hct 24.5 L (34.0-46.0) % MCV 106.1 H (80.0-100.0) fL MCH (25.0-35.0) pg RDW 18.6 H (11.5-15.5) % Plt Count 67 L (150-450) k/uL Macrocytosis Marked A PT 13.1 H (10.0-12.5) sec INR 1.2 H (<1.2) APTT 32.5 H (22.0-30.0) sec D-Dimer 6.72 H (<0.60) mg/L FEU Sodium (137-145) mmol/L Potassium (3.5-5.1) mmol/L BUN (7-17) mg/dL Creatinine (0.52-1.04) mg/dL Glucose (74-99) mg/dL Calcium (8.4-10.2) mg/dL Iron (50-170) UG/DL TIBC (228-460) UG/DL % Saturation (12.00-45.00) Transferrin (204.0-354.0) mg/dL AST (14-36) U/L ALT (4-34) U/L C-Reactive Protein (<1.0) mg/dL Total Protein (6.3-8.2) g/dL Albumin (3.5-5.0) g/dL Procalcitonin (0.02-0.09) ng/mL Urine Osmolality (400-1100) mOsm/kg Crossmatch Microbiology - Last 24 Hours (Table) 07/29/23 21:15 Blood Culture Gram Stain - Preliminary Blood Blood Culture - Preliminary Gram Neg Bacilli 07/29/23 21:00 Blood Culture Gram Stain - Preliminary Blood Blood Culture - Preliminary Gram Neg Bacilli - Imaging and Cardiology US - abdomen: report reviewed Assessment and Plan (1) Pancytopenia Current Visit: Yes Status: Acute Priority: High Code(s): D61.818 - OTHER PANCYTOPENIA SNOMED Code(s): 469219897 (2) Neutropenic colitis Current Visit: Yes Status: Suspected Priority: High Code(s): D70.9 - NEUTROPENIA, UNSPECIFIED; K52.89 - OTHER SPECIFIED NONINFECTIVE GASTROENTERITIS AND COLITIS SNOMED Code(s): 043929042 (3) Macrocytic anemia with vitamin B12 deficiency Current Visit: Yes Status: Chronic Priority: Medium Code(s): D51.8 - OTHER VITAMIN B12 DEFICIENCY ANEMIAS SNOMED Code(s): 52745833 (4) Pulmonary embolism Current Visit: No Status: Chronic Onset Date: ~05/2022 Code(s): I26.99 - OTHER PULMONARY EMBOLISM WITHOUT ACUTE COR PULMONALE SNOMED Code(s): 72051617 Plan: Pancytopenia, macrocytic anemia and B12 deficiency -Anemia hemoglobin 6.8 today, PRBCs ordered. Transfuse for hemoglobin less than 7 or if patient is symptomatic. CBC daily -Platelets 54,000 this morning, 67,000 on recheck. Patient is okay to continue anticoagulation for recent PE in May. Monitor coags and acutely ill patient. -Unclear the exact etiology of pancytopenia at this time. Suspect sepsis contr ibuting to pancytopenia as well as medications, as was felt to be the case when worked up by [employer] late last year for macrocytic anemia. There are concerns for an underlying bone marrow problem as well due to the severity of the pancytopenia. Lab work up ordered and pending. Bone marrow biopsy was discussed with pt today. Would like pt to be more stable before proceeding with the same. She verbalized understanding and is agreeable with plan. Abdominal pain, neutropenia -Concerns for neutropenic colitis. -Ultrasound of the abdomen reported pain with exam, bowel gas obstructing view. Abd is distended today, slightly worse then yesterday -Diet of ice chips only, for now PE -Diagnosed May. Been on eliquis for the same -Concerns for bleeding, anticoagluation was held. SCDs for DVT prophylaxis. Attests: I have seen and examined pt, performed H&P, developed impression and plan of care. Discussed with dictator. Agree with documentation, dictated as a scribe.
--- NOTE | 2023-07-31 15:39 | P.PN ---
Subjective Progress Note Date: 07/31/23 63-year-old female patient admitted to the intensive care unit with altered mentation, hypotension and acute kidney injury. The patient presented to the emergency department complaining of some back pain. She was altered, she was encephalopathic and weak. She was found to be hypotensive. She was given several fluid boluses and she remained hypotensive and the patient was started on pressors and currently she is on norepinephrine running at 0.1 mcg/kg/min. She was given a total of 4.5 L and currently 2 and a bicarb infusion running at 125 cc an hour. She is producing urine output. Noted that she had an acute kidney injury and the creatinine was elevated at 5.1 with a BUN of 68. Serum bicarb was at 8 with a potassium level of 5.6 and a sodium levels at 129. She probably has chronic Myelodysplasia as the patient's white cell count was low at 1 with a hemoglobin 9.1 and a platelet count of 153./The patient has pancytopenia. No respiratory difficulties. No cough or sputum production. Chest x-ray showed no evidence of any pneumonia. CT angiogram of the chest showed no evidence of any pulmonary embolism. CAT scan of the abdomen and pelvis was also done that showed no acute abnormalities. There was a small pericardial effusion. Nonspecific right inguinal lymphadenopathy was noted. The patient is having an echocardiogram this morning. The blood gas showed a pH of 7.39 with a pCO2 of 27 and pO2 of 81 minutes with an FiO2 of 28%. Creatinine is on the decline and currently is down to 3.37 with a BUN of 55 and his sodium level is at 133. Free cortisol level is at 33.9. Free T4 is at 0.6 which is essentially low. LDH is not elevated. The viral panel including influenza, COVID-19 and RSV were negative. Coagulation profile was within normal. D-dimer was at 3.98. CT angiogram was negative for any pulmonary embolism. CAT scan of the brain was also done in the emergency department along with a CT scan of the cervical spine showed no evidence of any cervical fracture and no evidence of any intracranial abnormalities. Mild spondylosis at the level of C6-C7. No focal neurological deficit. She is able to answer simple commands upon repeated stimulation. CPK was at 33. Troponins were negative. She has previous history of pulm embolism maintained on anticoagulation with Eliquis and this was placed on hold and the patient was started on IV heparin. She was also started empirically on a combination of Zosyn and vancomycin pending further cultures. 07/31/2023, the patient is being seen for a follow-up. Awake and alert and communicating. Continues to have back pain and MRI of the lumbar spine has been ordered. Meanwhile, the patient remains on IV fluids. The patient is on a bicarb infusion at the rate of 125 cc an hour. She also received a unit of packed RBC regarding a drop in hemoglobin down to 6.8 and the follow-up hemoglobin is currently at 8. She remains neutropenic with a white cell count of 0.8 and the patient is also septic and the blood cultures is positive for Enterobacter species. The patient is currently on IV cefepime. She remains on no pressors at this point. She did have an episode of atrial fibrillation yesterday. She was briefly placed on Cardizem at 10 mg an hour and she was given a bolus. She is back into normal sinus rhythm. She is maintained currently on amiodarone at 1 mg/min. In terms of her renal function, the patient's creatinine is improving. BUN is down to 35 with a creatinine of 1.55 and a sodium levels at 133 with a potassium level of 2.5. Oxygenation is stable and the patient is currently on 2 L of O2 nasal cannula with a pulse ox of 95%. Platelet count is also low at 67. A workup regarding this pancytopenia has been initiated. It is also still pending for now. Hepatitis profile has been negative. Iron levels were low and the patient was started on IV iron in addition. Objective - Vital Signs Vital signs: Vital Signs Temp 97.9 F 07/31/23 06:30 Pulse 113 H 07/31/23 07:15 Resp 19 07/31/23 07:15 BP 114/58 07/31/23 07:15 Pulse Ox 96 07/31/23 07:15 FiO2 Intake & Output 07/30/23 07/31/23 07/31/23 18:59 06:59 18:59 Intake Total 3581.169 5357.076 125 Output Total 1765 1400 100 Balance -72.253 949.076 25 Weight 73.5 kg Intake: IV 1500 1500 125 Dextrose 5% in Water 1, 1500 1500 125 000 ml @ 125 mls/hr IV . Q9H12M MARIE with Sodium Bicarb (1 Meq/ml) 150 ml Rx#:[id number] Intake, IV Titration 192.747 389.076 Amount Heparin Sod,Pork in 0.45% 135.076 NaCl 25,000 unit In 0.45 % NaCl 1 250ml.bag @ 12 UNITS/KG/HR 9.096 mls/hr IV .Q24H MARIE Rx#: [id number] Norepinephrine 4 mg In 192.747 254.000 Sodium Chloride 0.9% 250 ml @ 0.03 MCG/KG/MIN 8. 036 mls/hr IV .Q24H MARIE Rx#:[id number] Blood Product 460 Rc As-1 Unit 230 [id number] Output: Urine 1765 1400 100 Other: Voiding Method Indwelling Catheter Indwelling Catheter - Exam GENERAL EXAM: Alert, 63-year-old white female, calm and comfortable, no agitation the patient has no signs of any respiratory distress. The patient is moving all 4 extremities. The patient is able to state her name upon repeated stimulation. HEAD: Normocephalic and atraumatic EYES: Normal reaction of pupils, equal size. NOSE: Clear with pink turbinates. THROAT: No erythema or exudates. NECK: No masses, no JVD. CHEST: No chest wall deformity. LUNGS: Equal air entry with no crackles, wheeze, rhonchi or dullness. On room air. No conversational dyspnea or accessory muscle use.. CVS: S1 and S2 normal with no audible murmur, regular rhythm. No extra heart sounds ABDOMEN: No hepatosplenomegaly, active bowel sounds, no guarding or rigidity. SPINE: No scoliosis or deformity SKIN: No rashes CENTRAL NERVOUS SYSTEM: No focal deficits, tone is normal in all 4 extremities. The patient is encephalopathic. EXTREMITIES: There is no peripheral edema, clubbing, or cyanosis. Peripheral pulses are intact. - Labs CBC & Chem 7: 07/31/23 09:01 07/31/23 04:12 Labs: Abnormal Lab Results - Last 24 Hours (Table) 07/29/23 07/30/23 07/30/23 Range/Units 18:50 03:13 08:21 WBC (3.8-10.6) k/uL RBC (3.80-5.40) m/uL Hgb (11.4-16.0) gm/dL Hct (34.0-46.0) % MCV (80.0-100.0) fL MCH (25.0-35.0) pg RDW (11.5-15.5) % Plt Count (150-450) k/uL Macrocytosis PT 13.2 H (10.0-12.5) sec INR 1.2 H (<1.2) APTT 33.8 H (22.0-30.0) sec D-Dimer 3.98 H (<0.60) mg/L FEU ABG pCO2 (35-45) mmHg ABG pO2 (83-108) mmHg ABG HCO3 (21-25) mmol/L ABG Total CO2 (19-24) mmol/L Iron (50-170) UG/DL TIBC (228-460) UG/DL % Saturation (12.00-45.00) Transferrin (204.0-354.0) mg/dL Procalcitonin (0.02-0.09) ng/mL Cortisol 33.9 H (3.1-22.4) UG/DL Urine Osmolality 289 L (400-1100) mOsm/kg Crossmatch 07/30/23 07/30/23 07/30/23 Range/Units 08:30 09:46 11:01 WBC (3.8-10.6) k/uL RBC (3.80-5.40) m/uL Hgb (11.4-16.0) gm/dL Hct (34.0-46.0) % MCV (80.0-100.0) fL MCH (25.0-35.0) pg RDW (11.5-15.5) % Plt Count (150-450) k/uL Macrocytosis PT (10.0-12.5) sec INR (<1.2) APTT (22.0-30.0) sec D-Dimer (<0.60) mg/L FEU ABG pCO2 27 L (35-45) mmHg ABG pO2 81 L (83-108) mmHg ABG HCO3 16 L (21-25) mmol/L ABG Total CO2 17 L (19-24) mmol/L Iron 15 L (50-170) UG/DL TIBC 133 L (228-460) UG/DL % Saturation 11.28 L (12.00-45.00) Transferrin 94.7 L (204.0-354.0) mg/dL Procalcitonin 27.70 H (0.02-0.09) ng/mL Cortisol (3.1-22.4) UG/DL Urine Osmolality (400-1100) mOsm/kg Crossmatch 07/30/23 07/30/23 07/31/23 Range/Units 15:45 21:48 00:02 WBC 1.2 L* (3.8-10.6) k/uL RBC 1.85 L (3.80-5.40) m/uL Hgb 6.6 L* (11.4-16.0) gm/dL Hct 19.8 L* (34.0-46.0) % MCV 107.5 H (80.0-100.0) fL MCH 35.9 H (25.0-35.0) pg RDW 16.5 H (11.5-15.5) % Plt Count 67 L (150-450) k/uL Macrocytosis Marked A PT (10.0-12.5) sec INR (<1.2) APTT 67.7 H (22.0-30.0) sec D-Dimer (<0.60) mg/L FEU ABG pCO2 (35-45) mmHg ABG pO2 (83-108) mmHg ABG HCO3 (21-25) mmol/L ABG Total CO2 (19-24) mmol/L Iron (50-170) UG/DL TIBC (228-460) UG/DL % Saturation (12.00-45.00) Transferrin (204.0-354.0) mg/dL Procalcitonin (0.02-0.09) ng/mL Cortisol (3.1-22.4) UG/DL Urine Osmolality (400-1100) mOsm/kg Crossmatch See Detail 07/31/23 07/31/23 07/31/23 Range/Units 04:12 04:12 06:04 WBC 0.9 L* (3.8-10.6) k/uL RBC 1.89 L (3.80-5.40) m/uL Hgb 6.8 L* (11.4-16.0) gm/dL Hct 20.4 L (34.0-46.0) % MCV 108.2 H (80.0-100.0) fL MCH 35.8 H (25.0-35.0) pg RDW 16.4 H (11.5-15.5) % Plt Count 54 L (150-450) k/uL Macrocytosis Marked A PT 13.1 H (10.0-12.5) sec INR 1.2 H (<1.2) APTT 35.2 H 32.5 H (22.0-30.0) sec D-Dimer 6.72 H (<0.60) mg/L FEU ABG pCO2 (35-45) mmHg ABG pO2 (83-108) mmHg ABG HCO3 (21-25) mmol/L ABG Total CO2 (19-24) mmol/L Iron (50-170) UG/DL TIBC (228-460) UG/DL % Saturation (12.00-45.00) Transferrin (204.0-354.0) mg/dL Procalcitonin (0.02-0.09) ng/mL Cortisol (3.1-22.4) UG/DL Urine Osmolality (400-1100) mOsm/kg Crossmatch Microbiology - Last 24 Hours (Table) 07/29/23 21:00 Blood Culture Gram Stain - Preliminary Blood 07/29/23 21:15 Blood Culture Gram Stain - Preliminary Blood Assessment and Plan Plan: Neutropenic sepsis. The patient has gram-negative bacillus in the blood and the cultures are indicating Enterobacter species. The patient is currently on IV cefepime. Currently on no pressors Pancytopenia Acute encephalopathy with altered mentation. This is most likely metabolic encephalopathy. CAT scan of the brain was negative. CT scan of the cervical spine showed no acute fracture. CAT scan of the chest abdomen and pelvis was essentially nonrevealing. Clinically improving and the mental status is back to his baseline Acute hypotension under investigation, rule out sepsis. The patient was given a total of 4.5 L of IV fluids and currently she is covered with empiric antibiotics. The patient is currently normotensive Acute kidney injury, nonoliguric and creatinine is improving and the Crockett catheter is in place, no evidence of an hydronephrosis and the patient is producing adequate amount of urine output Severe metabolic anion gap acidosis, improving and the patient remains on a bicarb infusion. Leukopenia, as part of pancytopenia, rule out underlying myelodysplasia, he matologic profile is in progress. Anemia, no obvious acute blood loss, the patient is iron deficient based on the blood work Nausea, vomiting, severe dehydration, improved Multiple electrolyte abnormalities including hyperkalemia and hyponatremia, improved Mild transaminitis Mild systolic heart failure with an ejection fraction of 40 to 45% Small pericardial effusion noted on CT scan of the chest, incidental finding, Echocardiogram showed an ejection fraction of 40 to 45%. Small pericardial effusion. Otherwise no other acute abnormalities noted. History of pulmonary embolism, anticoagulated on Eliquis. Paroxysmal atrial fibrillation currently on amiodarone drip at 1 mg/min. Lower back pain, , awaiting MRI of the lumbar spine. History of bipolar/depression Plan: Continue vancomycin Patient will be kept on IV cefepime Awaiting final cultures and sensitivities Continue IV fluids and the patient is currently on lactated Ringer and bicarb infusion has been discontinued Monitor electrolytes and renal function Keep Crockett catheter in place nephrology consultation appreciated Hematology consultation is appreciatedine Continue amiodarone drip and the patient's cardiac rhythm is sinus IV heparin has been discontinued based on the underlying thrombocytopenia Hematology consultation regarding pancytopenia, may possibly need a bone marrow aspirate/biopsy hematologic profile and workup is in progress Patient will be monitored in the intensive care unit.
[2023-07-31] MEDS: AMIODARONE 450 MG in DEXTROSE 5% IN WATER 250 ML IV SCH (16:09)
[2023-07-31 16:45] LABS: HIV 2 AB Non-Reactive (Non-Reactive); HIV AB P24 Non-Reactive (Non-Reactive); HIV P24 AG Non-Reactive (Non-Reactive)
--- NOTE | 2023-07-31 16:59 | P.PN ---
Subjective Progress Note Date: 07/31/23 (delayed charting seen at 0920) Patient is a 63-year-old female with history of pulmonary embolism anticoagulated with Eliquis, GI bleed, GERD, and bipolar disorder who presented to the emergency room with complaints of back pain. On arrival to the emergency department her initial vital signs showed blood pressure of 98/57 however 45 minutes later she had a pulse of 124 with a blood pressure of 73/48. Initial laboratory analysis was remarkable for white blood cell count of 9, hemoglobin 9.1, INR 1.3, D-dimer 3.32, sodium 129, potassium 5.6, carbon dioxide 8, BUN 68, creatinine 5.13, AST 71, ALT 110. Initial urinalysis was negative. Patient had been given 2 L of fluid in the emergency department but remained hypotensive. Patient was called for admission. Her CT head and cervical spine then resulted with no acute intracranial abnormality but cervical spondylosis most progressed at C6-C7. CT chest abdomen and pelvis demonstrated nonspecific right inguinal adenopathy, superior endplate fracture of L3 likely Schmorl's node with clinical correlation recommended. She was given an additional 1 L fluid bolus and started on D5W with 3 A of bicarb. Nephrology was contacted. Arrangements were made for the patient to be admitted to the ICU. She was started on empiric Vanco and Zosyn due to refractory hypotension and shock, As well as neutropenia. Critical care was consulted. Patient began to require norepinephrine. Repeat CBC on the patient showed a hemoglobin down to 6.6. 1 unit of packed red blood cells was ordered. Patient went into atrial fibrillation with rapid ventricular response and was initially given Cardizem and then placed on amiodarone bolus. She was more awake and alert by the morning of 07/31/23. Patient seen and examined at bedside. Patient is much more awake and alert today. She is complaining of pain across her low back. She is still have some abdominal pain but is not as bad as her low back pain. She denies any nausea or vomiting. She is complaining of a headache. Vital signs reviewed General: ill appearing, no distress, appears at stated age Cardiovascular: S1S2 reg, no murmur Lungs: Decreased bs bilateral, no rhonchi, no rales, no accessory muscle use Abdominal: soft, nontender to palpation, no guarding Ext: no gross muscle atrophy, no edema b/l lower extremities, no contractures Neuro: CN II-XI grossly intact, no focal neuro deficits Psych: Alert, oriented, appropriate affect Assessment/Plan: Neutroepnin sepsis Septic Shock Enterobacter cloacae bacteremia -Wean norepi as able -Cefepime 1 g every 12 hours D #2 -Critical care note reviewed: Continue current care, await final cultures. -Infectious disease consultation reviewed: Enterobacter bacteremia with low back plain, continue current medications, await MRI. Acute kidney injury Hyponatremia Hypokalemia -Potassium chloride 40 mill equivalents IV piggyback -No signs of hydronephrosis on CT abdomen and pelvis -Nephrology note reviewed: DC bicarb drip and switch to lactated Ringer's. Replace potassium -Urine sodium 53 and likely most consistent with SIADH. However patient's sodium has been increasing with fluid resuscitation and therefore may have multiple components of both dehydration and SIADH. Continue to monitor closely Paroxysmal atrial fibrillation with rapid ventricular response Cardiomyopathy with ejection fraction 40 to 45% -Await cardiology consultation -Continue with amiodarone -Anticoagulation currently on hold due to platelets of 50 -Echocardiogram obtained 07/29 which showed ejection fraction of 40 to 45% - not a candidate for GDMT due to hypotension and ALEXANDRA Pancytopenia with neutropenia, anemia, and now thrombocytopenia - s/p 1 unit pRBC -Case discussed with oncology. Will consider bone marrow biopsy once patient's condition has improved. No G-CSF stimulator at this time. Had outpatient evaluation for macrocytosis last year. - follow CBC - Check HIV Bipolar disorder -Resume Trileptal 300 mg 3 times daily, dose reduce Seroquel to 400 mg at night, continue to hold Xanax Hx of Pulmonary embolism - hold AC due to plt 50 Hypomagnesemia, resolved Endplate fracture L3, possible Schmorl's node Hyperkalemia, resolved Anion gap metabolic acidosis, resolved Imaging: None Data Review: Labs reviewed from today include CBC, coags, and CMP which are remarkable for white blood cell count 0.8, hemoglobin 8, platelets 67, sodium 133, potassium 2.9, BUN 35, creatinine 1.55. Hepatitis A, B, and C are negative DVT prophylaxis: SCDs Anticipated discharge date: Pending Clinical Course Anticipated discharge place: Pending Clinical Course This dictation was prepared using [employer] voice recognition software. Though every attempt is made to correct errors during dictation some may still exist. Objective - Vital Signs Vital signs: Vital Signs Temp 98.1 F 07/31/23 16:00 Pulse 89 07/31/23 16:15 Resp 10 L 07/31/23 16:15 BP 112/58 07/31/23 16:15 Pulse Ox 92 L 07/31/23 16:15 FiO2 Intake & Output 07/30/23 07/31/23 07/31/23 18:59 06:59 18:59 Intake Total 7323.574 2755.076 1521.880 Output Total 1765 1400 870 Balance -72.253 949.076 651.880 Weight 73.5 kg Intake: IV 1500 1500 1450.0 Cefepime 1 gm In Sodium 50.0 Chloride 0.9% 50 ml @ 12. 5 mls/hr IVPB Q12HR [facility] Rx#:[id number] Dextrose 5% in Water 1, 1500 1500 500 000 ml @ 125 mls/hr IV . Q9H12M [facility] with Sodium Bicarb (1 Meq/ml) 150 ml Rx#:[id number] Lactated Ringers 1,000 ml 600 @ 100 mls/hr IV .Q10H [facility] Rx#:[id number] Potassium Chloride 20 meq 200 In Water For Injection 1 100ml.bag @ 50 mls/hr IVPB Q2H [facility] Rx#: [id number] Sodium Ferric Gluconat- 100 Sucrose 125 mg In Sodium Chloride 0.9% 100 ml @ 100 mls/hr IVPB DAILY [facility] Rx#:[id number] Intake, IV Titration 192.747 389.076 71.880 Amount Heparin Sod,Pork in 0.45% 135.076 NaCl 25,000 unit In 0.45 % NaCl 1 250ml.bag @ 12 UNITS/KG/HR 9.096 mls/hr IV .Q24H [facility] Rx#: [id number] Norepinephrine 4 mg In 192.747 254.000 71.880 Sodium Chloride 0.9% 250 ml @ 0.03 MCG/KG/MIN 8. 036 mls/hr IV .Q24H [facility] Rx#:[id number] Blood Product 460 Rc As-1 Unit 230 [id number] Output: Urine 1765 1400 870 Other: Voiding Method Indwelling Catheter Indwelling Catheter Indwelling Catheter - Labs CBC & Chem 7: 07/31/23 09:01 07/31/23 04:12 Labs: Abnormal Lab Results - Last 24 Hours (Table) 07/30/23 07/30/23 07/31/23 Range/Units 11:01 21:48 00:02 WBC 1.2 L* (3.8-10.6) k/uL RBC 1.85 L (3.80-5.40) m/uL Hgb 6.6 L* (11.4-16.0) gm/dL Hct 19.8 L* (34.0-46.0) % MCV 107.5 H (80.0-100.0) fL MCH 35.9 H (25.0-35.0) pg RDW 16.5 H (11.5-15.5) % Plt Count 67 L (150-450) k/uL Macrocytosis Marked A PT (10.0-12.5) sec INR (<1.2) APTT (22.0-30.0) sec D-Dimer (<0.60) mg/L FEU Sodium (137-145) mmol/L Potassium (3.5-5.1) mmol/L BUN (7-17) mg/dL Creatinine (0.52-1.04) mg/dL Glucose (74-99) mg/dL Calcium (8.4-10.2) mg/dL Iron 15 L (50-170) UG/DL TIBC 133 L (228-460) UG/DL % Saturation 11.28 L (12.00-45.00) Transferrin 94.7 L (204.0-354.0) mg/dL AST (14-36) U/L ALT (4-34) U/L C-Reactive Protein (<1.0) mg/dL Total Protein (6.3-8.2) g/dL Albumin (3.5-5.0) g/dL Crossmatch See Detail 07/31/23 07/31/23 07/31/23 Range/Units 04:12 04:12 04:12 WBC 0.9 L* (3.8-10.6) k/uL RBC 1.89 L (3.80-5.40) m/uL Hgb 6.8 L* (11.4-16.0) gm/dL Hct 20.4 L (34.0-46.0) % MCV 108.2 H (80.0-100.0) fL MCH 35.8 H (25.0-35.0) pg RDW 16.4 H (11.5-15.5) % Plt Count 54 L (150-450) k/uL Macrocytosis Marked A PT (10.0-12.5) sec INR (<1.2) APTT 35.2 H (22.0-30.0) sec D-Dimer (<0.60) mg/L FEU Sodium 133 L (137-145) mmol/L Potassium 2.9 L (3.5-5.1) mmol/L BUN 35 H (7-17) mg/dL Creatinine 1.55 H (0.52-1.04) mg/dL Glucose 154 H (74-99) mg/dL Calcium 7.3 L (8.4-10.2) mg/dL Iron (50-170) UG/DL TIBC (228-460) UG/DL % Saturation (12.00-45.00) Transferrin (204.0-354.0) mg/dL AST 43 H (14-36) U/L ALT 52 H (4-34) U/L C-Reactive Protein 39.1 H (<1.0) mg/dL Total Protein 6.0 L (6.3-8.2) g/dL Albumin 2.2 L (3.5-5.0) g/dL Crossmatch 07/31/23 07/31/23 Range/Units 06:04 09:01 WBC 0.8 L* (3.8-10.6) k/uL RBC 2.31 L (3.80-5.40) m/uL Hgb 8.0 L (11.4-16.0) gm/dL Hct 24.5 L (34.0-46.0) % MCV 106.1 H (80.0-100.0) fL MCH (25.0-35.0) pg RDW 18.6 H (11.5-15.5) % Plt Count 67 L (150-450) k/uL Macrocytosis Marked A PT 13.1 H (10.0-12.5) sec INR 1.2 H (<1.2) APTT 32.5 H (22.0-30.0) sec D-Dimer 6.72 H (<0.60) mg/L FEU Sodium (137-145) mmol/L Potassium (3.5-5.1) mmol/L BUN (7-17) mg/dL Creatinine (0.52-1.04) mg/dL Glucose (74-99) mg/dL Calcium (8.4-10.2) mg/dL Iron (50-170) UG/DL TIBC (228-460) UG/DL % Saturation (12.00-45.00) Transferrin (204.0-354.0) mg/dL AST (14-36) U/L ALT (4-34) U/L C-Reactive Protein (<1.0) mg/dL Total Protein (6.3-8.2) g/dL Albumin (3.5-5.0) g/dL Crossmatch Microbiology - Last 24 Hours (Table) 07/29/23 21:15 Blood Culture Gram Stain - Preliminary Blood Blood Culture - Preliminary Gram Neg Bacilli 07/29/23 21:00 Blood Culture Gram Stain - Preliminary Blood Blood Culture - Preliminary Gram Neg Bacilli
[2023-07-31 17:23] LABS: Rheumatoid Factor, Qnt <15 IU/mL (0-15)
[2023-07-31 17:40] LABS: Protein, Total 6.4 g/dL (6.2-8.2)
[2023-07-31] MEDS ORDERED: Potassium Replacement Protocol 1 EACH MISC MISCELLANE PRN (17:57)
[2023-07-31] MEDS ORDERED: FILGRASTIM-SNDZ 480 MCG/0.8 ML SYRINGE SQ SCH (18:00)
[2023-07-31] MEDS: POTASSIUM CHLORIDE 10 MEQ in WATER FOR INJECTION 1 100ML.BAG IVPB SCH (18:13)
--- NOTE | 2023-07-31 21:20 | P.PN ---
Subjective Progress Note Date: 07/31/23 Principal diagnosis: Reason for follow-up visit Enterobacter bacteremia Patient is a 63-year-old female with a past medical history significant for reflux PE anxiety bipolar depression patient was brought into the hospital for 1 day history of severe low back pain, patient was noted to be febrile did have elevated lactic acid abnormality of likely on the CT abdominal pelvis and a positive blood culture concerning for possible discitis osteomyelitis. On today's evaluation that is 07/31/2023,the patient did have resolution of her fever and is afebrile this afternoon, patient is on 2 L nasal cannula supplemental oxygen and denies any shortness of breath no chest pain or cough.Patient denies having any nausea or vomiting, no abdominal pain and no diarrhea, still complaining of significant pain to the lower back area. Patient white count is 0.8 creatinine is 1.55 blood cultures with Enterobacter MRI is pending Objective - Vital Signs Vital signs: Vital Signs Temp 98.4 F 07/31/23 12:00 Pulse 98 07/31/23 12:00 Resp 27 H 07/31/23 12:00 BP 111/67 07/31/23 12:00 Pulse Ox 91 L 07/31/23 12:00 FiO2 Intake & Output 07/30/23 07/31/23 07/31/23 18:59 06:59 18:59 Intake Total 3990.427 0503.076 921.880 Output Total 1765 1400 560 Balance -72.253 949.076 361.880 Weight 73.5 kg Intake: IV 1500 1500 850.0 Cefepime 1 gm In Sodium 50.0 Chloride 0.9% 50 ml @ 12. 5 mls/hr IVPB Q12HR [facility] Rx#:[id number] Dextrose 5% in Water 1, 1500 1500 500 000 ml @ 125 mls/hr IV . Q9H12M [facility] with Sodium Bicarb (1 Meq/ml) 150 ml Rx#:[id number] Lactated Ringers 1,000 ml 100 @ 100 mls/hr IV .Q10H [facility] Rx#:[id number] Potassium Chloride 20 meq 100 In Water For Injection 1 100ml.bag @ 50 mls/hr IVPB Q2H [facility] Rx#: [id number] Sodium Ferric Gluconat- 100 Sucrose 125 mg In Sodium Chloride 0.9% 100 ml @ 100 mls/hr IVPB DAILY [facility] Rx#:[id number] Intake, IV Titration 192.747 389.076 71.880 Amount Heparin Sod,Pork in 0.45% 135.076 NaCl 25,000 unit In 0.45 % NaCl 1 250ml.bag @ 12 UNITS/KG/HR 9.096 mls/hr IV .Q24H [facility] Rx#: [id number] Norepinephrine 4 mg In 192.747 254.000 71.880 Sodium Chloride 0.9% 250 ml @ 0.03 MCG/KG/MIN 8. 036 mls/hr IV .Q24H [facility] Rx#:[id number] Blood Product 460 Rc As-1 Unit 230 [id number] Output: Urine 1765 1400 560 Other: Voiding Method Indwelling Catheter Indwelling Catheter Indwelling Catheter - Exam GENERAL DESCRIPTION: Middle-aged female lying in bed in no distress RESPIRATORY SYSTEM: Unlabored breathing , decreased breath sounds at bases HEART: S1 S2 regular rate and rhythm , ABDOMEN: Soft , no tenderness EXTREMITIES: No edema feet - Labs CBC & Chem 7: 07/31/23 09:01 07/31/23 17:17 Labs: Abnormal Lab Results - Last 24 Hours (Table) 07/30/23 07/30/23 07/30/23 Range/Units 08:30 11:01 15:45 WBC (3.8-10.6) k/uL RBC (3.80-5.40) m/uL Hgb (11.4-16.0) gm/dL Hct (34.0-46.0) % MCV (80.0-100.0) fL MCH (25.0-35.0) pg RDW (11.5-15.5) % Plt Count (150-450) k/uL Macrocytosis PT (10.0-12.5) sec INR (<1.2) APTT 67.7 H (22.0-30.0) sec D-Dimer (<0.60) mg/L FEU Sodium (137-145) mmol/L Potassium (3.5-5.1) mmol/L BUN (7-17) mg/dL Creatinine (0.52-1.04) mg/dL Glucose (74-99) mg/dL Calcium (8.4-10.2) mg/dL Iron 15 L (50-170) UG/DL TIBC 133 L (228-460) UG/DL % Saturation 11.28 L (12.00-45.00) Transferrin 94.7 L (204.0-354.0) mg/dL AST (14-36) U/L ALT (4-34) U/L C-Reactive Protein (<1.0) mg/dL Total Protein (6.3-8.2) g/dL Albumin (3.5-5.0) g/dL Procalcitonin 27.70 H (0.02-0.09) ng/mL Crossmatch 07/30/23 07/31/23 07/31/23 Range/Units 21:48 00:02 04:12 WBC 1.2 L* (3.8-10.6) k/uL RBC 1.85 L (3.80-5.40) m/uL Hgb 6.6 L* (11.4-16.0) gm/dL Hct 19.8 L* (34.0-46.0) % MCV 107.5 H (80.0-100.0) fL MCH 35.9 H (25.0-35.0) pg RDW 16.5 H (11.5-15.5) % Plt Count 67 L (150-450) k/uL Macrocytosis Marked A PT (10.0-12.5) sec INR (<1.2) APTT (22.0-30.0) sec D-Dimer (<0.60) mg/L FEU Sodium 133 L (137-145) mmol/L Potassium 2.9 L (3.5-5.1) mmol/L BUN 35 H (7-17) mg/dL Creatinine 1.55 H (0.52-1.04) mg/dL Glucose 154 H (74-99) mg/dL Calcium 7.3 L (8.4-10.2) mg/dL Iron (50-170) UG/DL TIBC (228-460) UG/DL % Saturation (12.00-45.00) Transferrin (204.0-354.0) mg/dL AST 43 H (14-36) U/L ALT 52 H (4-34) U/L C-Reactive Protein 39.1 H (<1.0) mg/dL Total Protein 6.0 L (6.3-8.2) g/dL Albumin 2.2 L (3.5-5.0) g/dL Procalcitonin (0.02-0.09) ng/mL Crossmatch See Detail 07/31/23 07/31/23 07/31/23 Range/Units 04:12 04:12 06:04 WBC 0.9 L* (3.8-10.6) k/uL RBC 1.89 L (3.80-5.40) m/uL Hgb 6.8 L* (11.4-16.0) gm/dL Hct 20.4 L (34.0-46.0) % MCV 108.2 H (80.0-100.0) fL MCH 35.8 H (25.0-35.0) pg RDW 16.4 H (11.5-15.5) % Plt Count 54 L (150-450) k/uL Macrocytosis Marked A PT 13.1 H (10.0-12.5) sec INR 1.2 H (<1.2) APTT 35.2 H 32.5 H (22.0-30.0) sec D-Dimer 6.72 H (<0.60) mg/L FEU Sodium (137-145) mmol/L Potassium (3.5-5.1) mmol/L BUN (7-17) mg/dL Creatinine (0.52-1.04) mg/dL Glucose (74-99) mg/dL Calcium (8.4-10.2) mg/dL Iron (50-170) UG/DL TIBC (228-460) UG/DL % Saturation (12.00-45.00) Transferrin (204.0-354.0) mg/dL AST (14-36) U/L ALT (4-34) U/L C-Reactive Protein (<1.0) mg/dL Total Protein (6.3-8.2) g/dL Albumin (3.5-5.0) g/dL Procalcitonin (0.02-0.09) ng/mL Crossmatch 07/31/23 Range/Units 09:01 WBC 0.8 L* (3.8-10.6) k/uL RBC 2.31 L (3.80-5.40) m/uL Hgb 8.0 L (11.4-16.0) gm/dL Hct 24.5 L (34.0-46.0) % MCV 106.1 H (80.0-100.0) fL MCH (25.0-35.0) pg RDW 18.6 H (11.5-15.5) % Plt Count 67 L (150-450) k/uL Macrocytosis Marked A PT (10.0-12.5) sec INR (<1.2) APTT (22.0-30.0) sec D-Dimer (<0.60) mg/L FEU Sodium (137-145) mmol/L Potassium (3.5-5.1) mmol/L BUN (7-17) mg/dL Creatinine (0.52-1.04) mg/dL Glucose (74-99) mg/dL Calcium (8.4-10.2) mg/dL Iron (50-170) UG/DL TIBC (228-460) UG/DL % Saturation (12.00-45.00) Transferrin (204.0-354.0) mg/dL AST (14-36) U/L ALT (4-34) U/L C-Reactive Protein (<1.0) mg/dL Total Protein (6.3-8.2) g/dL Albumin (3.5-5.0) g/dL Procalcitonin (0.02-0.09) ng/mL Crossmatch Microbiology - Last 24 Hours (Table) 07/29/23 21:15 Blood Culture Gram Stain - Preliminary Blood Blood Culture - Preliminary Gram Neg Bacilli 07/29/23 21:00 Blood Culture Gram Stain - Preliminary Blood Blood Culture - Preliminary Gram Neg Bacilli Assessment and Plan (1) Gram-negative bacteremia Current Visit: Yes Status: Acute Code(s): R78.81 - BACTEREMIA SNOMED Code(s): 429146506693 Plan: 1patient presented to hospital with sepsis in this patient who did have a fever tachycardia hypotension significant leukopenia now with evidence of Enterobacter bacteremia in this patient with significant lower back pain, some abnormality of the L3 was seen on the CT abdominal pelvis concern for possible discitis or osteomyelitis as no other focus of infection with clinically as well as on the basis of investigation done so far 2-patient with a renal insufficiency high risk of nephrotoxicity: The patient kidney function has improved 3-blood cultures has been repeated document clearance 4-patient to continue with cefepime andawait MRI of the lumbar sacral spine hopefully this evening Dictation was produced using [employer] dictation software. please excuse any grammatical, word or spelling errors. Time with Patient: Less than 30
[2023-07-31] MEDS: QUEtiapine 400 MG TAB PO SCH (21:27)
[2023-07-31] MEDS: CEFEPIME 2 GM in SODIUM CHLORIDE 0.9% 100 ML IVPB SCH (21:28)
[2023-07-31] MEDS: OXcarbazepine 300 MG TAB PO SCH (21:28)
[2023-08-01 02:59] LABS: Erythrocyte Sedimentation Rate 88 mm/Hr (0-30)
[2023-08-01 05:06] LABS: Anisocytosis Slight; HCT 23.8 % (34.0-46.0); HGB 7.6 gm/dL (11.4-16.0); Hypochromasia Slight; MCH 34.3 pg (25.0-35.0); MCHC 31.8 g/dL (31.0-37.0); MCV 107.7 fL (80.0-100.0); Macrocytosis Marked; Mean Platelet Volume 9.3; Platelet Count 45 k/uL (150-450); Poikilocytosis Slight; RBC 2.21 m/uL (3.80-5.40); RDW 18.4 % (11.5-15.5)
[2023-08-01 05:29] LABS: ALT 41 U/L (4-34); African American GFR (CKD) 86 (>60 ml/min/1.73 sqM); Albumin 2.4 g/dL (3.5-5.0); Anion Gap 6 mmol/L; Blood Urea Nitrogen 22 mg/dL (7-17); Carbon Dioxide 25 mmol/L (22-30); Chloride 103 mmol/L (98-107); Glucose 107 mg/dL (74-99); Non-African American GFR(CKD) 75 (>60 ml/min/1.73 sqM); Sodium 134 mmol/L (137-145); Total Bilirubin 1.1 mg/dL (0.2-1.3); Total Protein 6.8 g/dL (6.3-8.2)
[2023-08-01 05:33] LABS: AST 49 U/L (14-36); Alkaline Phosphatase 100 U/L (38-126); Potassium 4.3 mmol/L (3.5-5.1)
[2023-08-01 05:46] LABS: WBC 0.6 k/uL (3.8-10.6)
[2023-08-01 06:26] LABS: Anisocytosis (M) Present; Polychromasia Present; Rouleaux Present
--- NOTE | 2023-08-01 09:48 | P.PN ---
Subjective Patient is seen for follow-up for acute kidney injury. She was admitted with severe metabolic acidosis and mental status changes. Status post bicarb drip Renal function has been improving. Good urine output. Serum creatinine down to 0.8 mg/dL Off of levo fed Objective - Vital Signs Vital signs: Vital Signs Temp 99.7 F H 08/01/23 08:15 Pulse 112 H 08/01/23 09:15 Resp 25 H 08/01/23 09:15 BP 106/59 08/01/23 09:15 Pulse Ox 83 L 08/01/23 09:15 FiO2 Intake & Output 07/31/23 08/01/23 08/01/23 18:59 06:59 18:59 Intake Total 8994.342 2887.113 300 Output Total 1060 635 170 Balance 661.880 874.113 130 Weight 77.3 kg Intake: IV 1650.0 1400 300 Cefepime 1 gm In Sodium 50.0 Chloride 0.9% 50 ml @ 12. 5 mls/hr IVPB Q12HR [facility] Rx#:[id number] Dextrose 5% in Water 1, 500 000 ml @ 125 mls/hr IV . Q9H12M [facility] with Sodium Bicarb (1 Meq/ml) 150 ml Rx#:[id number] Lactated Ringers 1,000 ml 800 1000 300 @ 100 mls/hr IV .Q10H [facility] Rx#:[id number] Potassium Chloride 20 meq 200 400 In Water For Injection 1 100ml.bag @ 50 mls/hr IVPB Q2H [facility] Rx#: [id number] Sodium Ferric Gluconat- 100 Sucrose 125 mg In Sodium Chloride 0.9% 100 ml @ 100 mls/hr IVPB DAILY [facility] Rx#:[id number] Intake, IV Titration 71.880 109.113 Amount Norepinephrine 4 mg In 71.880 109.113 Sodium Chloride 0.9% 250 ml @ 0.03 MCG/KG/MIN 8. 036 mls/hr IV .Q24H [facility] Rx#:[id number] Blood Product 0 Rc As-1 Unit 0 [id number] Output: Urine 1060 635 170 Other: Voiding Method Indwelling Catheter Indwelling Catheter - Exam Patient is awake and able to carry on conversation. 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 is moving all 4 extremities - Labs CBC & Chem 7: 08/01/23 04:40 08/01/23 04:40 Labs: Abnormal Lab Results - Last 24 Hours (Table) 07/31/23 07/31/23 07/31/23 Range/Units 00:02 04:12 09:01 WBC (3.8-10.6) k/uL RBC (3.80-5.40) m/uL Hgb (11.4-16.0) gm/dL Hct (34.0-46.0) % MCV (80.0-100.0) fL RDW (11.5-15.5) % Plt Count (150-450) k/uL Macrocytosis ESR 88 H (0-30) mm/Hr Sodium (137-145) mmol/L Potassium (3.5-5.1) mmol/L BUN (7-17) mg/dL Glucose (74-99) mg/dL Calcium (8.4-10.2) mg/dL AST (14-36) U/L ALT (4-34) U/L Albumin (3.5-5.0) g/dL Vitamin B12 2364.0 H (200.0-944.0) pg/mL Crossmatch See Detail 07/31/23 08/01/23 08/01/23 Range/Units 17:17 04:40 04:40 WBC 0.6 L* (3.8-10.6) k/uL RBC 2.21 L (3.80-5.40) m/uL Hgb 7.6 L (11.4-16.0) gm/dL Hct 23.8 L (34.0-46.0) % MCV 107.7 H (80.0-100.0) fL RDW 18.4 H (11.5-15.5) % Plt Count 45 L (150-450) k/uL Macrocytosis Marked A ESR (0-30) mm/Hr Sodium 134 L (137-145) mmol/L Potassium 3.3 L (3.5-5.1) mmol/L BUN 22 H (7-17) mg/dL Glucose 107 H (74-99) mg/dL Calcium 8.0 L (8.4-10.2) mg/dL AST 49 H (14-36) U/L ALT 41 H (4-34) U/L Albumin 2.4 L (3.5-5.0) g/dL Vitamin B12 (200.0-944.0) pg/mL Crossmatch Microbiology - Last 24 Hours (Table) 07/29/23 21:15 Blood Culture Gram Stain - Preliminary Blood Blood Culture - Preliminary Gram Neg Bacilli 07/29/23 21:00 Blood Culture Gram Stain - Preliminary Blood Blood Culture - Preliminary Gram Neg Bacilli Assessment and Plan Assessment: 1. Acute kidney injury, ATN, nonoliguric secondary to hypotension, currently improving. UA shows trace blood 1+ protein WBCs 22. CT abdomen shows no evidence of obstruction. 2. Anion gap metabolic acidosis secondary to acute kidney injury, other workup so far negative. Volatile alcohol screen also negative. Status post bicarb drip 3. Altered mentation secondary to possible element of uremia, metabolic encep halopathy. Urine drug screen positive for tricyclic antidepressants and benzodiazepines. CT of the head is negative. Mentation has improved. 4. Hypotension, maintained on empiric antibiotics for possible underlying sepsis. Status post fluid resuscitation. 5. Pancytopenia 6. Small to moderate pericardial effusion, status post echocardiogram which showed small pericardial effusion with no tamponade Plan: Continue IV fluids Continue with antibiotics
--- NOTE | 2023-08-01 09:58 | XR ---
EXAMINATION TYPE: XR abdomen acute w cxr DATE OF EXAM: 08/01/2023 COMPARISON: None HISTORY: Abdominal distention TECHNIQUE: Supine, upright, and left side down lateral decubitus views of the abdomen are obtained. FINDINGS: Dual lead cardiac device noted with left basilar atelectasis. Mitral annular calcification. No overt failure. Opacification the right axilla possibly related to synovial chondromatosis or calcified lymp h nodes. Arthropathy of the shoulders and degenerative changes spine. Limited inspiration. IMPRESSION: Left basilar atelectasis favored over pneumonia.
[2023-08-01] MEDS: AMIODARONE 450 MG in DEXTROSE 5% IN WATER 250 ML IV SCH (10:15)
[2023-08-01] MEDS: metroNIDAZOLE-NS PMX 500 MG in SALINE 1 100ML.BAG IVPB SCH (10:41)
[2023-08-01 12:34] LABS: Free Kappa Lt Chain Qnt, Serum 35.26 mg/dL (0.33-1.94); Free Lambda Lt Chain Qnt, Seru 0.23 mg/dL (0.57-2.63)
--- NOTE | 2023-08-01 12:44 | P.PN ---
Subjective Progress Note Date: 08/01/23 63-year-old female patient admitted to the intensive care unit with altered mentation, hypotension and acute kidney injury. The patient presented to the emergency department complaining of some back pain. She was altered, she was encephalopathic and weak. She was found to be hypotensive. She was given several fluid boluses and she remained hypotensive and the patient was started on pressors and currently she is on norepinephrine running at 0.1 mcg/kg/min. She was given a total of 4.5 L and currently 2 and a bicarb infusion running at 125 cc an hour. She is producing urine output. Noted that she had an acute kidney injury and the creatinine was elevated at 5.1 with a BUN of 68. Serum bicarb was at 8 with a potassium level of 5.6 and a sodium levels at 129. She probably has chronic Myelodysplasia as the patient's white cell count was low at 1 with a hemoglobin 9.1 and a platelet count of 153./The patient has pancytopenia. No respiratory difficulties. No cough or sputum production. Chest x-ray showed no evidence of any pneumonia. CT angiogram of the chest showed no evidence of any pulmonary embolism. CAT scan of the abdomen and pelvis was also done that showed no acute abnormalities. There was a small pericardial effusion. Nonspecific right inguinal lymphadenopathy was noted. The patient is having an echocardiogram this morning. The blood gas showed a pH of 7.39 with a pCO2 of 27 and pO2 of 81 minutes with an FiO2 of 28%. Creatinine is on the decline and currently is down to 3.37 with a BUN of 55 and his sodium level is at 133. Free cortisol level is at 33.9. Free T4 is at 0.6 which is essentially low. LDH is not elevated. The viral panel including influenza, COVID-19 and RSV were negative. Coagulation profile was within normal. D-dimer was at 3.98. CT angiogram was negative for any pulmonary embolism. CAT scan of the brain was also done in the emergency department along with a CT scan of the cervical spine showed no evidence of any cervical fracture and no evidence of any intracranial abnormalities. Mild spondylosis at the level of C6-C7. No focal neurological deficit. She is able to answer simple commands upon repeated stimulation. CPK was at 33. Troponins were negative. She has previous history of pulm embolism maintained on anticoagulation with Eliquis and this was placed on hold and the patient was started on IV heparin. She was also started empirically on a combination of Zosyn and vancomycin pending further cultures. 07/31/2023, the patient is being seen for a follow-up. Awake and alert and communicating. Continues to have back pain and MRI of the lumbar spine has been ordered. Meanwhile, the patient remains on IV fluids. The patient is on a bicarb infusion at the rate of 125 cc an hour. She also received a unit of packed RBC regarding a drop in hemoglobin down to 6.8 and the follow-up hemoglobin is currently at 8. She remains neutropenic with a white cell count of 0.8 and the patient is also septic and the blood cultures is positive for Enterobacter species. The patient is currently on IV cefepime. She remains on no pressors at this point. She did have an episode of atrial fibrillation yesterday. She was briefly placed on Cardizem at 10 mg an hour and she was given a bolus. She is back into normal sinus rhythm. She is maintained currently on amiodarone at 1 mg/min. In terms of her renal function, the patient's creatinine is improving. BUN is down to 35 with a creatinine of 1.55 and a sodium levels at 133 with a potassium level of 2.5. Oxygenation is stable and the patient is currently on 2 L of O2 nasal cannula with a pulse ox of 95%. Platelet count is also low at 67. A workup regarding this pancytopenia has been initiated. It is also still pending for now. Hepatitis profile has been negative. Iron levels were low and the patient was started on IV iron in addition. 08/01/2023, patient is being seen for a follow-up. The patient is awake and alert. She is complaining of abdominal pain abdominal distention that has developed over the past 24 hours. Noted the patient is neutropenic with a white cell count of 0.6 and the hemoglobin today is at 7.6. Platelet count is at 45. She had gram-negative sepsis and the patient remains on IV cefepime. She is off pressors. Cardiac rhythm is sinus. Function is improved and the follow-up blood work from today shows a BUN of 22 with a creatinine of 0.8 and a sodium noted at 134 and a potassium level is at 4.3. Lactic acid level is at 1.5. The patient is being seen by hematology oncology. This is regarding her pancytope ivone. The total serum protein was 6.4. Her free kappa light chains were elevated at 35.2. RIP and rheumatoid factor were negative. MRI of the back is also pending for now. No confusion. No altered mentation. She is awake and alert and communicating. Objective - Vital Signs Vital signs: Vital Signs Temp 99.7 F H 08/01/23 08:15 Pulse 112 H 08/01/23 09:15 Resp 25 H 08/01/23 09:15 BP 106/59 08/01/23 09:15 Pulse Ox 83 L 08/01/23 09:15 FiO2 Intake & Output 07/31/23 08/01/23 08/01/23 18:59 06:59 18:59 Intake Total 8477.872 9585.113 300 Output Total 1060 635 170 Balance 661.880 874.113 130 Weight 77.3 kg Intake: IV 1650.0 1400 300 Cefepime 1 gm In Sodium 50.0 Chloride 0.9% 50 ml @ 12. 5 mls/hr IVPB Q12HR [facility] Rx#:[id number] Dextrose 5% in Water 1, 500 000 ml @ 125 mls/hr IV . Q9H12M [facility] with Sodium Bicarb (1 Meq/ml) 150 ml Rx#:[id number] Lactated Ringers 1,000 ml 800 1000 300 @ 100 mls/hr IV .Q10H [facility] Rx#:[id number] Potassium Chloride 20 meq 200 400 In Water For Injection 1 100ml.bag @ 50 mls/hr IVPB Q2H [facility] Rx#: [id number] Sodium Ferric Gluconat- 100 Sucrose 125 mg In Sodium Chloride 0.9% 100 ml @ 100 mls/hr IVPB DAILY [facility] Rx#:[id number] Intake, IV Titration 71.880 109.113 Amount Norepinephrine 4 mg In 71.880 109.113 Sodium Chloride 0.9% 250 ml @ 0.03 MCG/KG/MIN 8. 036 mls/hr IV .Q24H [facility] Rx#:[id number] Blood Product 0 Rc As-1 Unit 0 [id number] Output: Urine 1060 635 170 Other: Voiding Method Indwelling Catheter Indwelling Catheter - Exam GENERAL EXAM: Alert, 63-year-old white female, calm and comfortable, no agitation the patient has no signs of any respiratory distress. The patient is moving all 4 extremities. The patient is able to state her name upon repeated stimulation. HEAD: Normocephalic and atraumatic EYES: Normal reaction of pupils, equal size. NOSE: Clear with pink turbinates. THROAT: No erythema or exudates. NECK: No masses, no JVD. CHEST: No chest wall deformity. LUNGS: Equal air entry with no crackles, wheeze, rhonchi or dullness. On room air. No conversational dyspnea or accessory muscle use.. CVS: S1 and S2 normal with no audible murmur, regular rhythm. No extra heart sounds ABDOMEN: No hepatosplenomegaly, there is evidence of abdominal distention and diffuse abdominal tenderness on today's examination. Organs cannot be a ccurately palpated. No guarding. Abdomen remains soft. SPINE: No scoliosis or deformity SKIN: No rashes CENTRAL NERVOUS SYSTEM: No focal deficits, tone is normal in all 4 extremities. The patient is encephalopathic. EXTREMITIES: There is no peripheral edema, clubbing, or cyanosis. Peripheral pulses are intact. - Labs CBC & Chem 7: 08/01/23 04:40 08/01/23 04:40 Labs: Abnormal Lab Results - Last 24 Hours (Table) 07/31/23 07/31/23 07/31/23 Range/Units 00:02 04:12 09:01 WBC 0.8 L* (3.8-10.6) k/uL RBC 2.31 L (3.80-5.40) m/uL Hgb 8.0 L (11.4-16.0) gm/dL Hct 24.5 L (34.0-46.0) % MCV 106.1 H (80.0-100.0) fL RDW 18.6 H (11.5-15.5) % Plt Count 67 L (150-450) k/uL Macrocytosis Marked A ESR 88 H (0-30) mm/Hr Sodium (137-145) mmol/L Potassium (3.5-5.1) mmol/L BUN (7-17) mg/dL Glucose (74-99) mg/dL Calcium (8.4-10.2) mg/dL AST (14-36) U/L ALT (4-34) U/L Albumin (3.5-5.0) g/dL Vitamin B12 (200.0-944.0) pg/mL Crossmatch See Detail 07/31/23 07/31/23 08/01/23 Range/Units 09:01 17:17 04:40 WBC 0.6 L* (3.8-10.6) k/uL RBC 2.21 L (3.80-5.40) m/uL Hgb 7.6 L (11.4-16.0) gm/dL Hct 23.8 L (34.0-46.0) % MCV 107.7 H (80.0-100.0) fL RDW 18.4 H (11.5-15.5) % Plt Count 45 L (150-450) k/uL Macrocytosis Marked A ESR (0-30) mm/Hr Sodium (137-145) mmol/L Potassium 3.3 L (3.5-5.1) mmol/L BUN (7-17) mg/dL Glucose (74-99) mg/dL Calcium (8.4-10.2) mg/dL AST (14-36) U/L ALT (4-34) U/L Albumin (3.5-5.0) g/dL Vitamin B12 2364.0 H (200.0-944.0) pg/mL Crossmatch 08/01/23 Range/Units 04:40 WBC (3.8-10.6) k/uL RBC (3.80-5.40) m/uL Hgb (11.4-16.0) gm/dL Hct (34.0-46.0) % MCV (80.0-100.0) fL RDW (11.5-15.5) % Plt Count (150-450) k/uL Macrocytosis ESR (0-30) mm/Hr Sodium 134 L (137-145) mmol/L Potassium (3.5-5.1) mmol/L BUN 22 H (7-17) mg/dL Glucose 107 H (74-99) mg/dL Calcium 8.0 L (8.4-10.2) mg/dL AST 49 H (14-36) U/L ALT 41 H (4-34) U/L Albumin 2.4 L (3.5-5.0) g/dL Vitamin B12 (200.0-944.0) pg/mL Crossmatch Microbiology - Last 24 Hours (Table) 07/29/23 21:15 Blood Culture Gram Stain - Preliminary Blood Blood Culture - Preliminary Gram Neg Bacilli 07/29/23 21:00 Blood Culture Gram Stain - Preliminary Blood Blood Culture - Preliminary Gram Neg Bacilli Assessment and Plan Plan: Neutropenic sepsis. The patient has gram-negative bacillus in the blood and the cultures are indicating Enterobacter species. The patient is currently on IV cefepime. Currently on no pressors Pancytopenia, under investigation Acute encephalopathy with altered mentation. This is most likely metabolic encephalopathy. CAT scan of the brain was negative. CT scan of the cervical spine showed no acute fracture. CAT scan of the chest abdomen and pelvis was essentially nonrevealing. Clinically improving and the mental status is back to his baseline Acute hypotension under investigation, rule out sepsis. The patient was given a total of 4.5 L of IV fluids and currently she is covered with empiric antibiotics. The patient is currently normotensive Acute kidney injury, nonoliguric creatinine has normalized Severe metabolic anion gap acidosis, improving and the patient remains on a bicarb infusion. Leukopenia, as part of pancytopenia, rule out underlying myelodysplasia, hematologic profile is in progress. The patient has elevated kappa light chains. Consider bone marrow biopsy. Anemia, no obvious acute blood loss, the patient is iron deficient based on the blood work Abdominal distention/pain with diffuse abdominal tenderness, lactic acid level i s not elevated Multiple electrolyte abnormalities including hyperkalemia and hyponatremia, improved Mild transaminitis Mild systolic heart failure with an ejection fraction of 40 to 45% Small pericardial effusion noted on CT scan of the chest, incidental finding, Echocardiogram showed an ejection fraction of 40 to 45%. Small pericardial effusion. Otherwise no other acute abnormalities noted. History of pulmonary embolism, anticoagulated on Eliquis. Paroxysmal atrial fibrillation currently on amiodarone drip at 1 mg/min. Lower back pain, , awaiting MRI of the lumbar spine. History of bipolar/depression Plan: IV cefepime and add Flagyl regarding the possibility of abdominal se psis/colitis/neutropenic colitis Lactic acid level is not elevated Obtain a CAT scan of the abdomen and pelvis Awaiting final cultures and sensitivities from the blood cultures Continue lactated Ringer at 100 cc an hour Monitor electrolytes and renal function Keep Crockett catheter in place nephrology consultation appreciated Hematology consultation is appreciatedine, elevated light chains, history of bone marrow biopsy Continue amiodarone drip at 0.5 mg/min. IV heparin has been discontinued based on the underlying thrombocytopenia Hematology consultation regarding pancytopenia, may possibly need a bone marrow aspirate/biopsy hematologic profile and workup is in progress Patient will be monitored in the intensive care unit.
--- NOTE | 2023-08-01 12:57 | CT ---
EXAMINATION TYPE: CT abdomen pelvis wo con DATE OF EXAM: 08/01/2023 COMPARISON: 05/28/2022 HISTORY: Abdominal pain and distention CT DLP: 594 mGycm Automated exposure control for dose reduction was used. TECHNIQUE: Helical acquisition of images was performed from the lung bases through the pelvis. FINDINGS: There are scattered areas of groundglass density in the lung bases, right greater than left. There is a small pericardial effusion. There is no organomegaly involving the liver, pancreas or spleen but the spleen is in upper limits of normal. There is surgical absence of the gallbladder. There is no renal calcification or hydronephrosis. The caliber of the abdominal aorta is normal and is no retroperitoneal adenopathy. There are markedly dilated air and fluid-filled loops of colon. There is a long segment of markedly t hickened sigmoid colon in the dilated bowel is proximal to this segment. There is moderate fluid in t he cul-de-sac of the pelvis. There is no free intraperitoneal air. There are anastomotic sutures and what appear to be a segment of small bowel in the right lower quadr ant of the abdomen. There is a 2.8 cm mass in the right superficial inguinal region suspicious for renal lymphadenopathy IMPRESSION: 1. Moderate groundglass densities in the lung bases, right greater than left. 2. Small pericardial effusion. 3. Long segment of markedly thickened sigmoid colon wall with proximal marked dilatation of the colon with air and fluid consistent with a partial large bowel obstruction. The findings could be secondar y to acute sigmoid wall inflammation from inflammatory bowel disease or diverticulitis. Neoplasm is n ot entirely excluded. 4. Anastomotic sutures involving small bowel in the right lower quadrant. 5. Right superficial inguinal adenopathy
--- NOTE | 2023-08-01 13:50 | P.PN ---
Subjective Progress Note Date: 08/01/23 (delayed charting seen at 0910) Patient is a 63-year-old female with history of pulmonary embolism anticoagulated with Eliquis, GI bleed, GERD, and bipolar disorder who presented to the emergency room with complaints of back pain. On arrival to the emergency department her initial vital signs showed blood pressure of 98/57 however 45 minutes later she had a pulse of 124 with a blood pressure of 73/48. Initial laboratory analysis was remarkable for white blood cell count of 9, hemoglobin 9.1, INR 1.3, D-dimer 3.32, sodium 129, potassium 5.6, carbon dioxide 8, BUN 68, creatinine 5.13, AST 71, ALT 110. Initial urinalysis was negative. Patient had been given 2 L of fluid in the emergency department but remained hypotensive. Patient was called for admission. Her CT head and cervical spine then resulted with no acute intracranial abnormality but cervical spondylosis most progressed at C6-C7. CT chest abdomen and pelvis demonstrated nonspecific right inguinal adenopathy, superior endplate fracture of L3 likely Schmorl's node with clinical correlation recommended. She was given an additional 1 L fluid bolus and started on D5W with 3 A of bicarb. Nephrology was contacted. Arrangements were made for the patient to be admitted to the ICU. She was started on empiric Vanco and Zosyn due to refractory hypotension and shock, in conjunction with neutropenia. Critical care was consulted. Patient began to require norepinephrine. She was found to have Enterobacter bacteremia and antibiotics were streamlined to cefepime. Infectious disease was consulted.Repeat CBC on the patient showed a hemoglobin down to 6.6. 1 unit of packed red blood cells was ordered. Patient went into atrial fibrillation with rapid ventricular response and was initially given Cardizem and then placed on amiodarone bolus. She was more awake and alert by the morning of 07/31/23. Her vasopressors were able to be weaned on 08/01/23. Patient seen and examined at bedside. She complains of abdominal pain, back pain, and nausea. She states her belly feels distended and she thinks that she needs to have a bowel movement. Her nursing no acute events overnight. She is now off of vasopressor agents Vital signs reviewed General: ill appearing, no distress, appears at stated age Cardiovascular: S1S2 reg, no murmur Lungs: Decreased bs bilateral, no rhonchi, no rales, no accessory muscle use Abdominal: soft, nontender to palpation, no guarding Ext: no gross muscle atrophy, no edema b/l lower extremities, no contractures Neuro: CN II-XI grossly intact, no focal neuro deficits Psych: Alert, oriented, appropriate affect Assessment/Plan: Neutroepnic sepsis Septic Shock, resolved Enterobacter cloacae bacteremia - off norepi -Cefepime 1 g every 12 hours D #3 - Flagyl 500 mg IV every 8 hours day #1, ordered per critical care -Critical care recommendations reviewed: Continue cefepime and Flagyl for possible neutropenic colitis/sepsis -Await further infectious disease recommendations -Repeat blood culture from 07/30 negative for 24 hours -Continue with IV fluids Partial large bowl obstruction - Ice chips - conuslt surgery Acute kidney injury, improved Hyponatremia. improved Hypokalemia, improved -Nephrology recommendations: Continue with IV fluids and antibiotics -No signs of hydronephrosis on CT abdomen and pelvis Paroxysmal atrial fibrillation with rapid ventricular response Cardiomyopathy with ejection fraction 40 to 45% -Await formal cardiology recommendations. -Continue with amiodarone gtt -Anticoagulation currently on hold due to platelets of 50 -Echocardiogram obtained 07/29 which showed ejection fraction of 40 to 45% - not a candidate for GDMT due to hypotension Pancytopenia with neutropenia, anemia, and now thrombocytopenia - s/p 1 unit pRBC -Await further oncology recommendations - follow CBC -HIV negative Bipolar disorder -Resume Trileptal 300 mg 3 times daily, dose reduce Seroquel to 400 mg at night, continue to hold Xanax Hx of Pulmonary embolism - hold AC due to plt 50 Hypomagnesemia, resolved Endplate fracture L3, possible Schmorl's node Hyperkalemia, resolved Anion gap metabolic acidosis, resolved Imaging: CT abdomen and pelvis reviewed: Possible partial large bowel obstruction likely secondary to acute sigmoid wall inflammation from IBD or diverticulitis. Neoplasm not completely excluded. 2.8 cm mass in the right superficial inguinal region suspicious for reactive lymphadenopathy. Data Review: Labs reviewed from today include CBC and basic metabolic profile which are remarkable for white blood cell count 0.6 hemoglobin 7.6, platelets 45, sodium 134, potassium 4.3, AST 49, ALT 41, free kappa 35.26 free lambda 0.23 Enterobacter cloacae bacteremia sensitive to cefepime but multidrug-resistant to cephalosporins. DVT prophylaxis: SCDs Anticipated discharge date: Pending Clinical Course Anticipated discharge place: Pending Clinical Course This dictation was prepared using [employer] voice recognition software. Though every attempt is made to correct errors during dictation some may still exist. Objective - Vital Signs Vital signs: Vital Signs Temp 99.7 F H 08/01/23 08:15 Pulse 112 H 08/01/23 12:15 Resp 24 08/01/23 12:15 BP 101/59 08/01/23 12:15 Pulse Ox 90 L 08/01/23 12:15 FiO2 Intake & Output 07/31/23 08/01/23 08/01/23 18:59 06:59 18:59 Intake Total 1434.595 6921.113 750 Output Total 1060 635 320 Balance 661.880 874.113 430 Weight 77.3 kg Intake: IV 1650.0 1400 750 Cefepime 1 gm In Sodium 50.0 50 Chloride 0.9% 50 ml @ 12. 5 mls/hr IVPB Q12HR [facility] Rx#:[id number] Dextrose 5% in Water 1, 500 000 ml @ 125 mls/hr IV . Q9H12M [facility] with Sodium Bicarb (1 Meq/ml) 150 ml Rx#:[id number] Lactated Ringers 1,000 ml 800 1000 600 @ 100 mls/hr IV .Q10H [facility] Rx#:[id number] Potassium Chloride 20 meq 200 400 In Water For Injection 1 100ml.bag @ 50 mls/hr IVPB Q2H [facility] Rx#: [id number] Sodium Ferric Gluconat- 100 100 Sucrose 125 mg In Sodium Chloride 0.9% 100 ml @ 100 mls/hr IVPB DAILY [facility] Rx#:[id number] Intake, IV Titration 71.880 109.113 Amount Norepinephrine 4 mg In 71.880 109.113 Sodium Chloride 0.9% 250 ml @ 0.03 MCG/KG/MIN 8. 036 mls/hr IV .Q24H [facility] Rx#:[id number] Blood Product 0 Rc As-1 Unit 0 [id number] Output: Urine 1060 635 320 Other: Voiding Method Indwelling Catheter Indwelling Catheter Indwelling Catheter - Labs CBC & Chem 7: 08/01/23 04:40 08/01/23 04:40 Labs: Abnormal Lab Results - Last 24 Hours (Table) 07/31/23 07/31/23 07/31/23 Range/Units 00:02 04:12 09:01 WBC (3.8-10.6) k/uL RBC (3.80-5.40) m/uL Hgb (11.4-16.0) gm/dL Hct (34.0-46.0) % MCV (80.0-100.0) fL RDW (11.5-15.5) % Plt Count (150-450) k/uL Macrocytosis ESR 88 H (0-30) mm/Hr Sodium (137-145) mmol/L Potassium (3.5-5.1) mmol/L BUN (7-17) mg/dL Glucose (74-99) mg/dL Calcium (8.4-10.2) mg/dL AST (14-36) U/L ALT (4-34) U/L Albumin (3.5-5.0) g/dL Vitamin B12 2364.0 H (200.0-944.0) pg/mL Free Kirklin LC, Quant (0.33-1.94) mg/dL Free Lambda LC, Quant (0.57-2.63) mg/dL Crossmatch See Detail 07/31/23 07/31/23 08/01/23 Range/Units 09:01 17:17 04:40 WBC 0.6 L* (3.8-10.6) k/uL RBC 2.21 L (3.80-5.40) m/uL Hgb 7.6 L (11.4-16.0) gm/dL Hct 23.8 L (34.0-46.0) % MCV 107.7 H (80.0-100.0) fL RDW 18.4 H (11.5-15.5) % Plt Count 45 L (150-450) k/uL Macrocytosis Marked A ESR (0-30) mm/Hr Sodium (137-145) mmol/L Potassium 3.3 L (3.5-5.1) mmol/L BUN (7-17) mg/dL Glucose (74-99) mg/dL Calcium (8.4-10.2) mg/dL AST (14-36) U/L ALT (4-34) U/L Albumin (3.5-5.0) g/dL Vitamin B12 (200.0-944.0) pg/mL Free Kirklin LC, Quant 35.26 H (0.33-1.94) mg/dL Free Lambda LC, Quant 0.23 L (0.57-2.63) mg/dL Crossmatch 08/01/23 Range/Units 04:40 WBC (3.8-10.6) k/uL RBC (3.80-5.40) m/uL Hgb (11.4-16.0) gm/dL Hct (34.0-46.0) % MCV (80.0-100.0) fL RDW (11.5-15.5) % Plt Count (150-450) k/uL Macrocytosis ESR (0-30) mm/Hr Sodium 134 L (137-145) mmol/L Potassium (3.5-5.1) mmol/L BUN 22 H (7-17) mg/dL Glucose 107 H (74-99) mg/dL Calcium 8.0 L (8.4-10.2) mg/dL AST 49 H (14-36) U/L ALT 41 H (4-34) U/L Albumin 2.4 L (3.5-5.0) g/dL Vitamin B12 (200.0-944.0) pg/mL Free Kirklin LC, Quant (0.33-1.94) mg/dL Free Lambda LC, Quant (0.57-2.63) mg/dL Crossmatch Microbiology - Last 24 Hours (Table) 07/31/23 04:12 Blood Culture - Preliminary Blood 07/29/23 21:15 Blood Culture Gram Stain - Final Blood Blood Culture - Final Enterobacter cloacae 07/29/23 21:00 Blood Culture Gram Stain - Final Blood Blood Culture - Final Enterobacter cloacae
--- NOTE | 2023-08-01 15:17 | P.CRDCN ---
History of Present Illness History of present illness: HISTORY OF PRESENTING ILLNESS Patient pleasant 63-year-old female with history of anxiety, bipolar depression, pancytopenia, prior pulmonary embolism, anemia, prior breast surgery who presen ts secondary to generalized weakness and has had lengthy stay. Patient initially had a chest abdomen pelvis CAT scan which did show a small to moderate pericardial effusion and also found to have blood culture positive for Enterobacter. She has been placed on antibiotics and currently in ICU with borderline blood pressures. She has been treated for sepsis with additional likely mild dysplastic syndrome. Cardiology was a consultative secondary to episode of A. fib with RVR. Patient was placed on amiodarone drip and converted back to sinus rhythm. She states she was not very symptomatic. Echocardiogram 07/29 showed EF 40-45%. She does have history of previous pulmonary embolism however anticoagulation has been held secondary to anemia and thrombocytopenia. Currently remains in sinus tachycardia with heart rates from the 90s to 120 range. She does admit to increased abdominal pain over last 24 hours and has no appetite. CT abdomen and pelvis was performed which showed stable small pericardial effusion however concern of inflammation of the bowel with possible bowel obstruction. REVIEW OF SYSTEMS At the time of my exam: CONSTITUTIONAL: Denies fever or chills. CARDIOVASCULAR: Denies chest pain, +mild chronic shortness of breath, no orthopnea, PND or palpitations. RESPIRATORY: Denies cough. GASTROINTESTINAL: +abdominal pain, no diarrhea, constipation, nausea or vomiting. MUSCULOSKELETAL: Denies myalgias. NEUROLOGIC: Denies numbness, tingling or weakness. ENDOCRINE: Denies fatigue, weight change, polydipsia or polyurina. GENITOURINARY: Denies burning, hematuria or urgency with micturation. HEMATOLOGIC: Denies history of anemia or bleeding. PHYSICAL EXAMINATION Vital signs reviewed. CONSTITUTIONAL: No apparent distress. HEENT: Head is normocephalic. Pupils are equal, round. Sclerae anicteric. Mucous membranes of the mouth are moist. No JVD. No carotid bruit. CHEST EXAMINATION: Lungs are clear to auscultation. No chest wall tenderness is noted on palpation or with deep breathing. HEART EXAMINATION: Regular rate and rhythm. S1, S2 heard. No murmurs, gallops or rub. ABDOMEN: +tenderness to palpation. Positive bowel sounds. EXTREMITIES: 2+ peripheral pulses, no lower extremity edema and no calf tenderness. NEUROLOGIC EXAMINATION: Patient is awake, alert and oriented x3. ASSESSMENT 1. Paroxysmal atrial fibrillation, new onset 2. Septic shock 3. Pancytopenia 4. History of pulmonary embolism 5. Mild decreased EF 40-45% 6. Chronic systolic heart failure 7. Small pericardial effusion, no signs of tamponade on echo PLAN Patient with multiple metabolic derangements as well as pancytopenia. Majority of presentation appears related to sepsis. Patient is status post amiodarone with currently sinus rhythm, sinus tachycardia. Avoid antiarrhythmics for now however it has recurrent episodes likely restart amiodarone drip. Not a good anticoagulation candidate currently with pancytopenia, anemia and thrombocytopenia. Chads VASC score of 2 for female in heart failure. Unable to tolerate heart failure regimen at this time. If any deterioration consider repeat echo to evaluate for any worsening effusion however most recent echo without any signs of tamponade. Prognosis guarded. Past Medical History Past Medical History: GERD/Reflux Additional Past Medical History / Comment(s): CHANGE IN BOWEL MOVEMENTS., HAVING PAIN IN STOMACH ,REFLUX WITH NAUSEA AND VOMITING. History of Any Multi-Drug Resistant Organisms: None Reported Past Surgical History: Appendectomy, Bowel Resection, Breast Surgery, Section, Cholecystectomy, Hernia Repair, Tubal Ligation Additional Past Surgical History / Comment(s): HERNIATED BOWEL REQUIRED BOWEL RESECTION., BREAST IMPLANTS, Pt. states "L breast imploded and the R implant needs to be removed. Past Anesthesia/Blood Transfusion Reactions: No Reported Reaction Additional Past Anesthesia/Blood Transfusion Reaction / Comment(s): HX OF BLOOD TRANSFUSION-NO REACTION Past Psychological History: Anxiety, Bipolar, Depression Smoking Status: Current every day smoker Past Alcohol Use History: None Reported Past Drug Use History: None Reported - Past Family History Mother Family Medical History: No Reported History Father Additional Family Medical History / Comment(s): COMMITTED SUICIDE AT AGE 28 Medications and Allergies Home Medications Medication Instructions Recorded Confirmed Type ALPRAZolam [Xanax] 1 mg PO TID PRN 05/25/22 07/29/23 History OXcarbazepine [Trileptal] 300 mg PO TID 05/25/22 07/29/23 History Apixaban [Eliquis] 5 mg PO BID 03/08/23 07/29/23 History Cyanocobalamin (Vitamin B-12) 1,000 mcg PO DAILY 03/08/23 07/29/23 History [Vitamin B-12] Ferrous Sulfate [Feosol] 325 mg PO DAILY 03/08/23 07/29/23 History Omeprazole 40 mg PO BID 03/08/23 07/29/23 History QUEtiapine [SEROquel] 1,200 mg PO HS 03/08/23 07/29/23 History methocarbamoL [Robaxin] 500 mg PO TID PRN 07/29/23 07/29/23 History Allergies Allergy/AdvReac Type Severity Reaction Status Date / Time No Known Allergies Allergy Verified 07/29/23 19:10 Physical Exam Vitals: Vital Signs Temp Pulse Resp BP Pulse Ox 08/01/23 14:15 115 H 24 102/63 92 L 08/01/23 14:00 121 H 19 101/58 93 L 08/01/23 13:15 115 H 21 101/58 92 L 08/01/23 12:15 112 H 24 101/59 90 L 08/01/23 11:15 115 H 22 100/58 93 L 08/01/23 10:15 112 H 18 86/54 93 L 08/01/23 09:15 112 H 25 H 106/59 83 L 08/01/23 08:15 99.7 F H 111 H 22 96/56 91 L 08/01/23 07:42 93 L 08/01/23 07:15 106 H 21 103/66 91 L 08/01/23 07:00 107 H 22 95/56 94 L 08/01/23 06:53 97.8 F 170 H 18 81/68 95 08/01/23 06:00 104 H 20 111/62 93 L 08/01/23 05:00 102 H 19 105/56 93 L 08/01/23 04:00 99 F 98 19 108/65 95 08/01/23 03:00 95 18 102/59 97 08/01/23 02:00 89 18 90/58 08/01/23 01:00 89 19 93 L 08/01/23 00:00 98.1 F 90 16 105/61 94 L 07/31/23 23:48 90 19 92 L 07/31/23 23:45 93 18 93 L 07/31/23 23:30 101 H 16 96 07/31/23 23:15 92 22 94 L 07/31/23 23:00 92 20 83/56 07/31/23 22:45 90 27 H 89/65 95 07/31/23 22:30 91 19 94 L 07/31/23 22:15 91 22 98/62 94 L 07/31/23 22:00 91 21 109/67 93 L 07/31/23 21:45 90 18 101/62 95 07/31/23 21:30 91 20 106/67 93 L 07/31/23 21:15 92 20 103/69 93 L 07/31/23 21:00 96 19 107/64 93 L 07/31/23 20:45 91 18 122/69 93 L 07/31/23 20:30 92 17 100/62 93 L 07/31/23 20:15 92 16 116/67 91 L 07/31/23 20:00 99.1 F 90 13 115/71 94 L 07/31/23 19:45 93 10 L 108/52 96 07/31/23 19:30 93 16 120/69 94 L 07/31/23 19:15 89 17 94/66 94 L 07/31/23 19:00 89 15 110/63 95 07/31/23 18:45 85 18 124/69 95 07/31/23 18:30 89 16 124/69 92 L 07/31/23 18:15 90 18 117/64 94 L 07/31/23 18:00 89 17 109/59 92 L 07/31/23 17:45 87 21 88/73 92 L 07/31/23 17:30 90 17 113/60 94 L 07/31/23 17:15 90 17 108/56 96 07/31/23 17:00 86 21 115/58 91 L 07/31/23 16:45 89 19 97/55 88 L 07/31/23 16:30 90 16 83/48 88 L 07/31/23 16:15 89 10 L 112/58 92 L 07/31/23 16:00 98.1 F 87 20 81/48 94 L 07/31/23 15:45 90 19 86/51 92 L 07/31/23 15:15 90 18 108/62 95 Intake and Output 08/01/23 08/01/23 08/01/23 06:59 14:59 22:59 Intake Total 1000 950 Output Total 360 380 Balance 640 570 Intake: IV 1000 950 Cefepime 1 gm In Sodium 50 Chloride 0.9% 50 ml @ 12. 5 mls/hr IVPB Q12HR [facility] Rx#:[id number] Lactated Ringers 1,000 ml 800 800 @ 100 mls/hr IV .Q10H [facility] Rx#:[id number] Potassium Chloride 20 meq 200 In Water For Injection 1 100ml.bag @ 50 mls/hr IVPB Q2H [facility] Rx#: [id number] Sodium Ferric Gluconat- 100 Sucrose 125 mg In Sodium Chloride 0.9% 100 ml @ 100 mls/hr IVPB DAILY [facility] Rx#:[id number] Blood Product 0 Rc As-1 Unit 0 [id number] Output: Urine 360 380 Other: Voiding Method Indwelling Catheter Indwelling Catheter Weight 77.3 kg 77.3 kg Results 08/01/23 04:40 08/01/23 04:40 Cardiac Enzymes 08/01/23 Range/Units 04:40 AST 49 H (14-36) U/L CBC 08/01/23 Range/Units 04:40 WBC 0.6 L* (3.8-10.6) k/uL RBC 2.21 L (3.80-5.40) m/uL Hgb 7.6 L (11.4-16.0) gm/dL Hct 23.8 L (34.0-46.0) % Plt Count 45 L (150-450) k/uL Comprehensive Metabolic Panel 07/31/23 08/01/23 Range/Units 17:17 04:40 Sodium 134 L (137-145) mmol/L Potassium 3.3 L 4.3 (3.5-5.1) mmol/L Chloride 103 (98-107) mmol/L Carbon Dioxide 25 (22-30) mmol/L BUN 22 H (7-17) mg/dL Creatinine 0.85 (0.52-1.04) mg/dL Glucose 107 H (74-99) mg/dL Calcium 8.0 L (8.4-10.2) mg/dL AST 49 H (14-36) U/L ALT 41 H (4-34) U/L Alkaline Phosphatase 100 (38-126) U/L Total Protein 6.8 (6.3-8.2) g/dL Albumin 2.4 L (3.5-5.0) g/dL Current Medications Generic Name Dose Route Start Last Admin Trade Name Freq PRN Reason Stop Dose Admin Acetaminophen 650 mg 07/30/23 04:27 07/31/23 01:12 Acetaminophen Tab 325 Mg Tab PO 650 mg Q4HR PRN Administration Fever and/ or Pain Calcium Carbonate/Glycine 500 mg 07/31/23 09:27 07/31/23 10:24 Calcium Carbonate 500 Mg Chewable PO 500 mg TID PRN Administration Heartburn Norepinephrine Bitartrate 4 mg 254 mls @ 8.036 mls/hr 07/30/23 00:45 07/31/23 20:56 / Sodium Chloride IV 0 mcg/kg/min .Q24H MARIE 0 mls/hr Titration Protocol 0.03 MCG/KG/MIN Ferric Sodium Gluconate 125 mg 110 mls @ 100 mls/hr 07/31/23 10:00 08/01/23 09:25 / Sodium Chloride IVPB 08/02/23 10:05 100 mls/hr DAILY MARIE Administration Lactated Ringer's 1,000 mls @ 100 mls/hr 07/31/23 09:45 08/01/23 06:31 Lactated Ringers IV 100 mls/hr .Q10H MARIE Administration Cefepime HCl 2 gm/ Sodium 100 mls @ 25 mls/hr 07/31/23 21:00 08/01/23 10:15 Chloride IVPB 25 mls/hr Q12HR MARIE Administration Amiodarone HCl 450 mg/ 250 mls @ 16.667 mls/hr 08/01/23 10:00 08/01/23 10:15 Dextrose/Water IV 08/02/23 03:59 Not Given .Q15H MARIE Protocol 0.5 MG/MIN Metronidazole 500 mg/ IV 100 mls @ 100 mls/hr 08/01/23 09:45 08/01/23 10:41 Solution IVPB 100 mls/hr Q8HR MARIE Administration Protocol Methocarbamol 500 mg 07/30/23 00:28 07/31/23 12:55 Methocarbamol 500 Mg Tab PO 500 mg TID PRN Administration Muscle Spasm Miscellaneous Information 1 each 07/31/23 17:57 Potassium Replacement Protocol 1 Each Misc MISCELLANE DAILY PRN Per Protocol Protocol Morphine Sulfate 4 mg 07/29/23 20:07 08/01/23 11:27 Morphine Sulfate 4 Mg/Ml Syringe IV 2 mg Q3HR PRN Administration Severe Pain (Scale 7 to 10) Naloxone HCl 0.2 mg 07/29/23 20:07 Naloxone 0.4 Mg/Ml 1 Ml Vial IV Q2M PRN Opioid Reversal Ondansetron HCl 4 mg 07/31/23 08:35 07/31/23 20:10 Ondansetron 4 Mg/2 Ml Vial IVP 4 mg Q6H PRN Administration Nausea Oxcarbazepine 300 mg 07/31/23 22:00 08/01/23 10:00 Oxcarbazepine 300 Mg Tab PO 300 mg TID MARIE Administration Pantoprazole Sodium 40 mg 07/30/23 07:30 08/01/23 06:32 Pantoprazole 40 Mg Tablet PO 40 mg AC-BID MARIE Administration Quetiapine Fumarate 400 mg 07/31/23 21:00 07/31/23 21:27 Quetiapine 400 Mg Tab PO 400 mg HS MARIE Administration Intake and Output 08/01/23 08/01/23 08/01/23 06:59 14:59 22:59 Intake Total 1000 950 Output Total 360 380 Balance 640 570 Intake: IV 1000 950 Cefepime 1 gm In Sodium 50 Chloride 0.9% 50 ml @ 12. 5 mls/hr IVPB Q12HR [facility] Rx#:[id number] Lactated Ringers 1,000 ml 800 800 @ 100 mls/hr IV .Q10H [facility] Rx#:[id number] Potassium Chloride 20 meq 200 In Water For Injection 1 100ml.bag @ 50 mls/hr IVPB Q2H [facility] Rx#: [id number] Sodium Ferric Gluconat- 100 Sucrose 125 mg In Sodium Chloride 0.9% 100 ml @ 100 mls/hr IVPB DAILY [facility] Rx#:[id number] Blood Product 0 Rc As-1 Unit 0 [id number] Output: Urine 360 380 Other: Voiding Method Indwelling Catheter Indwelling Catheter Weight 77.3 kg 77.3 kg Patient Weight 08/02/23 06:59 Weight 77.3 kg 08/01/23 04:40 08/01/23 04:40
[2023-08-01 15:47] LABS: Albumin 2.05 g/dL (3.80-4.90); Gamma Globulin 2.09 g/dL (0.70-1.50)
--- NOTE | 2023-08-01 15:56 | P.PN ---
Subjective Progress Note Date: 08/01/23 Principal diagnosis: Reason for follow-up visit Enterobacter bacteremia Patient is a 63-year-old female with a past medical history significant for reflux PE anxiety bipolar depression patient was brought into the hospital for 1 day history of severe low back pain, patient was noted to be febrile did have elevated lactic acid abnormality of likely on the CT abdominal pelvis and a positive blood culture concerning for possible discitis osteomyelitis. On today's evaluation that is 08/01/2023, the patient did have a low-grade fever of 99.5 F this morning, the patient is on 2 L nasal cannula oxygen and breathing comfortably, the Pt denies having any chest pain or cough, the patient denies having any nausea vomiting is complaining of some abdominal pain and no diarrhea reported. Patient white count is 0.6, creatinine 0.85 blood culture with Enterobacter patient did have a CT abdominal pelvis and did show significant changes to the sigmoid colon Objective - Vital Signs Vital signs: Vital Signs Temp 99.7 F H 08/01/23 08:15 Pulse 112 H 08/01/23 12:15 Resp 24 08/01/23 12:15 BP 101/59 08/01/23 12:15 Pulse Ox 90 L 08/01/23 12:15 FiO2 Intake & Output 07/31/23 08/01/23 08/01/23 18:59 06:59 18:59 Intake Total 9023.770 4558.113 750 Output Total 1060 635 320 Balance 661.880 874.113 430 Weight 77.3 kg Intake: IV 1650.0 1400 750 Cefepime 1 gm In Sodium 50.0 50 Chloride 0.9% 50 ml @ 12. 5 mls/hr IVPB Q12HR [facility] Rx#:[id number] Dextrose 5% in Water 1, 500 000 ml @ 125 mls/hr IV . Q9H12M [facility]IE with Sodium Bicarb (1 Meq/ml) 150 ml Rx#:[id number] Lactated Ringers 1,000 ml 800 1000 600 @ 100 mls/hr IV .Q10H [facility] Rx#:[id number] Potassium Chloride 20 meq 200 400 In Water For Injection 1 100ml.bag @ 50 mls/hr IVPB Q2H [facility] Rx#: [id number] Sodium Ferric Gluconat- 100 100 Sucrose 125 mg In Sodium Chloride 0.9% 100 ml @ 100 mls/hr IVPB DAILY [facility] Rx#:[id number] Intake, IV Titration 71.880 109.113 Amount Norepinephrine 4 mg In 71.880 109.113 Sodium Chloride 0.9% 250 ml @ 0.03 MCG/KG/MIN 8. 036 mls/hr IV .Q24H [facility] Rx#:[id number] Blood Product 0 Rc As-1 Unit 0 [id number] Output: Urine 1060 635 320 Other: Voiding Method Indwelling Catheter Indwelling Catheter Indwelling Catheter - Exam GENERAL DESCRIPTION: Middle-aged female lying in bed in no distress RESPIRATORY SYSTEM: Unlabored breathing , decreased breath sounds at bases HEART: S1 S2 regular rate and rhythm , ABDOMEN: Soft , no tenderness EXTREMITIES: No edema feet - Labs CBC & Chem 7: 08/01/23 04:40 08/01/23 04:40 Labs: Abnormal Lab Results - Last 24 Hours (Table) 07/31/23 07/31/23 07/31/23 Range/Units 00:02 04:12 09:01 WBC (3.8-10.6) k/uL RBC (3.80-5.40) m/uL Hgb (11.4-16.0) gm/dL Hct (34.0-46.0) % MCV (80.0-100.0) fL RDW (11.5-15.5) % Plt Count (150-450) k/uL Macrocytosis ESR 88 H (0-30) mm/Hr Sodium (137-145) mmol/L Potassium (3.5-5.1) mmol/L BUN (7-17) mg/dL Glucose (74-99) mg/dL Calcium (8.4-10.2) mg/dL AST (14-36) U/L ALT (4-34) U/L Albumin (3.5-5.0) g/dL Vitamin B12 2364.0 H (200.0-944.0) pg/mL Free Scalp Level LC, Quant (0.33-1.94) mg/dL Free Lambda LC, Quant (0.57-2.63) mg/dL Crossmatch See Detail 07/31/23 07/31/23 08/01/23 Range/Units 09:01 17:17 04:40 WBC 0.6 L* (3.8-10.6) k/uL RBC 2.21 L (3.80-5.40) m/uL Hgb 7.6 L (11.4-16.0) gm/dL Hct 23.8 L (34.0-46.0) % MCV 107.7 H (80.0-100.0) fL RDW 18.4 H (11.5-15.5) % Plt Count 45 L (150-450) k/uL Macrocytosis Marked A ESR (0-30) mm/Hr Sodium (137-145) mmol/L Potassium 3.3 L (3.5-5.1) mmol/L BUN (7-17) mg/dL Glucose (74-99) mg/dL Calcium (8.4-10.2) mg/dL AST (14-36) U/L ALT (4-34) U/L Albumin (3.5-5.0) g/dL Vitamin B12 (200.0-944.0) pg/mL Free Scalp Level LC, Quant 35.26 H (0.33-1.94) mg/dL Free Lambda LC, Quant 0.23 L (0.57-2.63) mg/dL Crossmatch 08/01/23 Range/Units 04:40 WBC (3.8-10.6) k/uL RBC (3.80-5.40) m/uL Hgb (11.4-16.0) gm/dL Hct (34.0-46.0) % MCV (80.0-100.0) fL RDW (11.5-15.5) % Plt Count (150-450) k/uL Macrocytosis ESR (0-30) mm/Hr Sodium 134 L (137-145) mmol/L Potassium (3.5-5.1) mmol/L BUN 22 H (7-17) mg/dL Glucose 107 H (74-99) mg/dL Calcium 8.0 L (8.4-10.2) mg/dL AST 49 H (14-36) U/L ALT 41 H (4-34) U/L Albumin 2.4 L (3.5-5.0) g/dL Vitamin B12 (200.0-944.0) pg/mL Free Scalp Level LC, Quant (0.33-1.94) mg/dL Free Lambda LC, Quant (0.57-2.63) mg/dL Crossmatch Microbiology - Last 24 Hours (Table) 07/31/23 04:12 Blood Culture - Preliminary Blood 07/29/23 21:15 Blood Culture Gram Stain - Final Blood Blood Culture - Final Enterobacter cloacae 07/29/23 21:00 Blood Culture Gram Stain - Final Blood Blood Culture - Final Enterobacter cloacae Assessment and Plan (1) Gram-negative bacteremia Current Visit: Yes Status: Acute Code(s): R78.81 - BACTEREMIA SNOMED Code(s): 947850484648 Plan: 1patient presented to hospital with sepsis in this patient who did have a fever tachycardia hypotension significant leukopenia now with evidence of Enterobacter bacteremia in this patient with significant lower back pain, some abnormality of the L3 was seen on the CT abdominal pelvis concern for possible discitis or osteomyelitis as no other focus of infection with clinically as well as on the b asis of investigation done so far 2-patient with a renal insufficiency high risk of nephrotoxicity: 3-blood cultures has been repeated so far negative 4-patient repeat CT abdominal pelvis did show significant change in the sigmoid colon could be the source of this bacteremia we will continue cefepime and Flagyl for anaerobe coverage and monitor clinical course closely Dictation was produced using [employer] dictation software. please excuse any grammatical, word or spelling errors. Time with Patient: Less than 30
[2023-08-01] MEDS: ACETAMINOPHEN IV (For NPO) 1,000 MG in EMPTY BAG 1 BAG IVPB PRN (18:35)
--- NOTE | 2023-08-01 19:54 | P.PN ---
Subjective Progress Note Date: 08/01/23 Patient seen in ICU at todays visit. Pressors have been stopped, blood pressure stable. Patient reporting persisting abdominal pain. Denies any episodes of acute bleeding. Hemoglobin 7.6, platelets 45,000. Due to persistent abdominal pain CT abdomen pelvis without contrast has been ordered. Objective - Vital Signs Vital signs: Vital Signs Temp 99.7 F H 08/01/23 08:15 Pulse 112 H 08/01/23 15:15 Resp 26 H 08/01/23 15:15 BP 86/53 08/01/23 15:15 Pulse Ox 94 L 08/01/23 15:15 FiO2 Intake & Output 07/31/23 08/01/23 08/01/23 18:59 06:59 18:59 Intake Total 3054.211 9666.113 1050 Output Total 1060 635 420 Balance 661.880 874.113 630 Weight 77.3 kg 77.3 kg Intake: IV 1650.0 1400 1050 Cefepime 1 gm In Sodium 50.0 50 Chloride 0.9% 50 ml @ 12. 5 mls/hr IVPB Q12HR MARIE Rx#:[id number] Dextrose 5% in Water 1, 500 000 ml @ 125 mls/hr IV . Q9H12M MARIE with Sodium Bicarb (1 Meq/ml) 150 ml Rx#:[id number] Lactated Ringers 1,000 ml 800 1000 900 @ 100 mls/hr IV .Q10H MARIE Rx#:[id number] Potassium Chloride 20 meq 200 400 In Water For Injection 1 100ml.bag @ 50 mls/hr IVPB Q2H MARIE Rx#: [id number] Sodium Ferric Gluconat- 100 100 Sucrose 125 mg In Sodium Chloride 0.9% 100 ml @ 100 mls/hr IVPB DAILY MARIE Rx#:[id number] Intake, IV Titration 71.880 109.113 Amount Norepinephrine 4 mg In 71.880 109.113 Sodium Chloride 0.9% 250 ml @ 0.03 MCG/KG/MIN 8. 036 mls/hr IV .Q24H MARIE Rx#:[id number] Blood Product 0 Rc As-1 Unit 0 [id number] Output: Urine 1060 635 420 Other: Voiding Method Indwelling Catheter Indwelling Catheter Indwelling Catheter - Constitutional General appearance: Present: no acute distress - EENT Eyes: Present: EOMI ENT: Present: hearing grossly normal - Respiratory Details: breathing is even and unlabored - Cardiovascular Details: skin warm and dry - Gastrointestinal General gastrointestinal: Present: tenderness Localized gastrointestinal: tender: diffuse - Integumentary Integumentary: Absent: cyanotic, jaundiced - Musculoskeletal Musculoskeletal: Present: generalized weakness - Psychiatric Psychiatric: Present: A&O x's 3 - Labs CBC & Chem 7: 08/01/23 04:40 08/01/23 04:40 Labs: Abnormal Lab Results - Last 24 Hours (Table) 07/31/23 07/31/23 07/31/23 Range/Units 00:02 04:12 09:01 WBC (3.8-10.6) k/uL RBC (3.80-5.40) m/uL Hgb (11.4-16.0) gm/dL Hct (34.0-46.0) % MCV (80.0-100.0) fL RDW (11.5-15.5) % Plt Count (150-450) k/uL Macrocytosis ESR 88 H (0-30) mm/Hr Sodium (137-145) mmol/L Potassium (3.5-5.1) mmol/L BUN (7-17) mg/dL Glucose (74-99) mg/dL Calcium (8.4-10.2) mg/dL AST (14-36) U/L ALT (4-34) U/L Albumin (3.5-5.0) g/dL Albumin (PEP) (3.80-4.90) g/dL Wtevy-9-Cjjhyoyho (0.10-0.40) g/dL Ruijn-7-Jdwibsuuv (0.60-1.00) g/dL Gamma Globulins (0.70-1.50) g/dL Vitamin B12 2364.0 H (200.0-944.0) pg/mL Free [place] LC, Quant (0.33-1.94) mg/dL Free [place] LC, Quant (0.57-2.63) mg/dL Crossmatch See Detail 07/31/23 07/31/23 08/01/23 Range/Units 09:01 17:17 04:40 WBC 0.6 L* (3.8-10.6) k/uL RBC 2.21 L (3.80-5.40) m/uL Hgb 7.6 L (11.4-16.0) gm/dL Hct 23.8 L (34.0-46.0) % MCV 107.7 H (80.0-100.0) fL RDW 18.4 H (11.5-15.5) % Plt Count 45 L (150-450) k/uL Macrocytosis Marked A ESR (0-30) mm/Hr Sodium (137-145) mmol/L Potassium 3.3 L (3.5-5.1) mmol/L BUN (7-17) mg/dL Glucose (74-99) mg/dL Calcium (8.4-10.2) mg/dL AST (14-36) U/L ALT (4-34) U/L Albumin (3.5-5.0) g/dL Albumin (PEP) 2.05 L (3.80-4.90) g/dL Slmvr-8-Knzgdfraj 0.54 H (0.10-0.40) g/dL Lwhjt-7-Ouhetznov 0.57 L (0.60-1.00) g/dL Gamma Globulins 2.09 H (0.70-1.50) g/dL Vitamin B12 (200.0-944.0) pg/mL Free [place] LC, Quant 35.26 H (0.33-1.94) mg/dL Free [place] LC, Quant 0.23 L (0.57-2.63) mg/dL Crossmatch 08/01/23 Range/Units 04:40 WBC (3.8-10.6) k/uL RBC (3.80-5.40) m/uL Hgb (11.4-16.0) gm/dL Hct (34.0-46.0) % MCV (80.0-100.0) fL RDW (11.5-15.5) % Plt Count (150-450) k/uL Macrocytosis ESR (0-30) mm/Hr Sodium 134 L (137-145) mmol/L Potassium (3.5-5.1) mmol/L BUN 22 H (7-17) mg/dL Glucose 107 H (74-99) mg/dL Calcium 8.0 L (8.4-10.2) mg/dL AST 49 H (14-36) U/L ALT 41 H (4-34) U/L Albumin 2.4 L (3.5-5.0) g/dL Albumin (PEP) (3.80-4.90) g/dL Qkhpd-0-Xxrilicma (0.10-0.40) g/dL Tplkl-4-Hveocdpqv (0.60-1.00) g/dL Gamma Globulins (0.70-1.50) g/dL Vitamin B12 (200.0-944.0) pg/mL Free [place] LC, Quant (0.33-1.94) mg/dL Free [place] LC, Quant (0.57-2.63) mg/dL Crossmatch Microbiology - Last 24 Hours (Table) 07/31/23 04:12 Blood Culture - Preliminary Blood 07/29/23 21:15 Blood Culture Gram Stain - Final Blood Blood Culture - Final Enterobacter cloacae 07/29/23 21:00 Blood Culture Gram Stain - Final Blood Blood Culture - Final Enterobacter cloacae Assessment and Plan (1) Gram-negative bacteremia Current Visit: Yes Status: Acute Priority: High Code(s): R78.81 - BACTEREMIA SNOMED Code(s): 313052193610 (2) Pancytopenia Current Visit: Yes Status: Acute Priority: High Code(s): D61.818 - OTHER PANCYTOPENIA SNOMED Code(s): 294525768 (3) Macrocytic anemia with vitamin B12 deficiency Current Visit: Yes Status: Chronic Priority: Medium Code(s): D51.8 - OTHER VITAMIN B12 DEFICIENCY ANEMIAS SNOMED Code(s): 92212057 (4) Neutropenic colitis Current Visit: Yes Status: Suspected Priority: High Code(s): D70.9 - NEUTROPENIA, UNSPECIFIED; K52.89 - OTHER SPECIFIED NONINFECTIVE GASTROENTERITIS AND COLITIS SNOMED Code(s): 884709382 Plan: Pancytopenia, macrocytic anemia and B12 deficiency -Hemoglobin 7.6 today s/p PRBCs. Transfuse for hemoglobin less than 7 or if patient is symptomatic. CBC daily -Platelets 45,000. DIC and HIT ab negative. Monitor coags in acutely ill patient. -Unclear the exact etiology of pancytopenia at this time. Suspect sepsis contributing to pancytopenia as well as medications, as was felt to be the case when worked up by [facility] late last year for macrocytic anemia. There are concerns for an underlying bone marrow problem as well due to the severity of the pancytopenia. -Work up Has revealed kappa light chain 35.26 and lambda light chain 0.23 with elevated ratio of 153.3. Immunofixation and protein electrophoresis pending. Findings concerning for multiple myeloma. Bone marrow biopsy was discussed with pt. She was agreeable to the same. Would like pt to be more stable before proceeding with biopsy. Will continue to monitor with hopes to schedule biopsy early next week Abdominal pain, neutropenia -Concerns for neutropenic colitis. -Ultrasound of the abdomen reported pain with exam, bowel gas obstructing view. Abd is distended and is having diffuse tenderness -CT abdomen pelvis obtained revealing moderate groundglass densities in the lung bases, right greater than left. Small pericardial effusion. Long segment of markedly thickened segment of the colon wall with proximal marked dilatation of the colon with air and fluid consistent with a partial large bowel obstruction. Right superficial inguinal adenopathy. -General surgery has been consulted. -NPO diet, ice chips only PE -Diagnosed May. Been on eliquis for the same -Concerns for bleeding, anticoagluation has been held. SCDs for DVT prophylaxis. Attests: I have seen and examined pt, performed H&P, developed impression and plan of care. Discussed with dictator. Agree with documentation, dictated as a scribe.
[2023-08-01] MEDS: PANTOPRAZOLE 40 MG/10 ML VIAL IVP SCH (21:29)
[2023-08-02 04:58] LABS: Anisocytosis Slight; HCT 20.8 % (34.0-46.0); MCH 34.2 pg (25.0-35.0); MCV 107.1 fL (80.0-100.0); Mean Platelet Volume 9.4; RBC 1.94 m/uL (3.80-5.40)
[2023-08-02 05:09] LABS: HGB 6.7 gm/dL (11.4-16.0)
[2023-08-02 05:10] LABS: WBC 0.5 k/uL (3.8-10.6)
[2023-08-02 05:11] LABS: Macrocytosis Marked; Platelet Count 45 k/uL (150-450)
[2023-08-02 05:14] LABS: African American GFR (CKD) >90 (>60 ml/min/1.73 sqM); Anion Gap 6 mmol/L; Blood Urea Nitrogen 21 mg/dL (7-17); Calcium 9.1 mg/dL (8.4-10.2); Carbon Dioxide 23 mmol/L (22-30); Chloride 104 mmol/L (98-107); Glucose 108 mg/dL (74-99); Non-African American GFR(CKD) 79 (>60 ml/min/1.73 sqM); Potassium 4.6 mmol/L (3.5-5.1); Sodium 133 mmol/L (137-145)
[2023-08-02 05:35] LABS: RBC Morphology Normal
--- NOTE | 2023-08-02 08:32 | P.GSCN ---
History of Present Illness Consult date: 08/01/23 History of present illness: CHIEF COMPLAINT: Abdominal pain HISTORY OF PRESENT ILLNESS: The patient is a 63 year old female seen in the ICU for abdominal pain. She reports pre-existing history of chronic constipation bowel movements once weekly. Last colonoscopy was within the past 2 years. She has known pre-existing history of diverticulitis. She reports lower abdominal pain mild to moderate. She reports abdominal distention. She reports nausea. No blood in stools. She has pre-existing history of multiple abdominal surgeries. PAST MEDICAL HISTORY: See list and reviewed PAST SURGICAL HISTORY: See list and reviewed MEDICATIONS: See list and reviewed ALLERGIES: See list and reviewed SOCIAL HISTORY: See list and reviewed FAMILY HISTORY: See list and reviewed REVIEW OF ORGAN SYSTEMS: CONSTITUTIONAL: No fevers or chills. Obesity, BMI 30.2. EYES: Denies any trouble with vision. No glasses. HEENT: No difficulties with hearing. No nosebleeds. No difficulty swallowing. RESPIRATORY: Has tobacco abuse disorder. No shortness of breath. CARDIOVASCULAR: Denies any chest pain, palpitations, or recent heart attacks. GASTROINTESTINAL: Past history of bowel perforation and bowel resection. Has gastroesophageal reflux disease GENITOURINARY: Denies any blood in urine or increased urinary frequency. NEUROLOGICAL: Denies any numbness or tingling along the distal extremities. Has seizure disorder. MUSCULOSKELETAL: Has back pain, stiffness or joint arthritis. SKIN: No current skin cancer. No rash. PSYCHIATRIC: Has bipolar disorder, depression, anxiety. ENDOCRINE: Denies current thyroid disorders. Denies any blood sugar glucose in tolerance. HEME/LYMPHATIC: Denies any lumps and bumps around the neck. No recent deep venous thrombosis. On chronic blood thinner ALLERGY/IMMUNOLOGY: No immunoglobulin therapy. No immune deficiencies. BREAST: Denies current breast lumps, pain or nipple discharge. PHYSICAL EXAM: VITALS: Reviewed CONSTITUTIONAL: Well developed and in no acute distress. EYES: Conjuctivae without sclera icterus. Extraocular movements grossly intact. HEAD, EARS, NOSE, THROAT: Moist buccal mucosa. Head is atraumatic, normocephalic. Hears conversational speech. No nasal drainage. NECK: Supple. No JV distention. No thyroidomegaly. RESPIRATORY: Non-labored respirations and equal bilateral excursions. No gross wheezes. CARDIOVASCULAR: Palpable 2+ radial pulses. ABDOMEN: Distended. No peritonitis. Mild tenderness bilateral lower abdomen. LYMPH: No neck lymphadenopathy. MUSCULOSKELETAL: No clubbing cyanosis or edema SKIN: Warm and well perfused with good skin turgor. NEUROLOGIC: Cranial nerves II through XII grossly intact. No focal or lateralizing signs. PSYCH: Flat affect. Alert and oriented person place and time. CLINCAL LABS: Reviewed. WBC less than 1.0, neutropenic. Hemoglobin 7.6, anemia. LFTs elevated. IMAGING: Independently reviewed. CT of the abdomen pelvis 08/01/2023 ind ependently reviewed demonstrates small bowel dilation with decompression of the pelvis. No identifiable transition point. This is my independent interpretation. No findings of gross free air. Admission CT scan 07/29/2023 reviewed demonstrating small bowel within normal limits. No identifiable bowel obstruction at that time. This is my independent interpretation. RADIOLOGY: Report reviewed. CT demonstrating sigmoid colon thickening and dilation for possible large bowel obstruction. Echocardiogram reviewed with impaired left ventricular function 40 to 44%. ASSESSMENT: 1. Abdominal pain, lower abdomen 2. Colitis sigmoid colon 3. Neutropenia 4. Anemia 5. Elevated liver enzyme PLAN: 1. Recommend IV antibiotics for focal colitis which is new during hospitalization 2. May benefit from nasogastric tube for worsening symptoms 3. Clear liquid diet as tolerated. 4. May benefit from upper GI small bowel follow-through as well for overlapping small bowel obstruction ADVANCE DIRECTIVE: CODE STATUS in chart Thank you for this kind consultation. Past Medical History Past Medical History: GERD/Reflux Additional Past Medical History / Comment(s): CHANGE IN BOWEL MOVEMENTS., HAVING PAIN IN STOMACH ,REFLUX WITH NAUSEA AND VOMITING. History of Any Multi-Drug Resistant Organisms: None Reported Past Surgical History: Appendectomy, Bowel Resection, Breast Surgery, Section, Cholecystectomy, Hernia Repair, Tubal Ligation Additional Past Surgical History / Comment(s): HERNIATED BOWEL REQUIRED BOWEL RESECTION., BREAST IMPLANTS, Pt. states "L breast imploded and the R implant needs to be removed. Past Anesthesia/Blood Transfusion Reactions: No Reported Reaction Additional Past Anesthesia/Blood Transfusion Reaction / Comm: HX OF BLOOD TRANSFUSION-NO REACTION Past Psychological History: Anxiety, Bipolar, Depression Smoking Status: Current every day smoker Past Alcohol Use History: None Reported Past Drug Use History: None Reported - Past Family History Mother Family Medical History: No Reported History Father Additional Family Medical History / Comment(s): COMMITTED SUICIDE AT AGE 28 Medications and Allergies Home Medications Medication Instructions Recorded Confirmed Type ALPRAZolam [Xanax] 1 mg PO TID PRN 05/25/22 07/29/23 History OXcarbazepine [Trileptal] 300 mg PO TID 05/25/22 07/29/23 History Apixaban [Eliquis] 5 mg PO BID 03/08/23 07/29/23 History Cyanocobalamin (Vitamin B-12) 1,000 mcg PO DAILY 03/08/23 07/29/23 History [Vitamin B-12] Ferrous Sulfate [Feosol] 325 mg PO DAILY 03/08/23 07/29/23 History Omeprazole 40 mg PO BID 03/08/23 07/29/23 History QUEtiapine [SEROquel] 1,200 mg PO HS 03/08/23 07/29/23 History methocarbamoL [Robaxin] 500 mg PO TID PRN 07/29/23 07/29/23 History Allergies Allergy/AdvReac Type Severity Reaction Status Date / Time No Known Allergies Allergy Verified 07/29/23 19:10 Surgical - Exam Vital Signs Temp Pulse Resp BP Pulse Ox 98.1 F 67 18 98/57 99 07/29/23 16:02 07/29/23 16:02 07/29/23 16:02 07/29/23 16:02 07/29/23 16:02 Results - Labs 08/02/23 04:31 08/02/23 04:26 Abnormal Lab Results - Last 24 Hours (Table) 07/31/23 07/31/23 08/02/23 Range/Units 00:02 09:01 04:26 WBC (3.8-10.6) k/uL RBC (3.80-5.40) m/uL Hgb (11.4-16.0) gm/dL Hct (34.0-46.0) % MCV (80.0-100.0) fL RDW (11.5-15.5) % Plt Count (150-450) k/uL Neutrophils # (1.3-7.7) k/uL Lymphocytes # (1.0-4.8) k/uL Macrocytosis Sodium 133 L (137-145) mmol/L BUN 21 H (7-17) mg/dL Glucose 108 H (74-99) mg/dL Albumin (PEP) 2.05 L (3.80-4.90) g/dL Tihhn-4-Jrqdrbdps 0.54 H (0.10-0.40) g/dL Wdwvw-8-Rxfrebpux 0.57 L (0.60-1.00) g/dL Gamma Globulins 2.09 H (0.70-1.50) g/dL Free [place] LC, Quant 35.26 H (0.33-1.94) mg/dL Free [place] LC, Quant 0.23 L (0.57-2.63) mg/dL Crossmatch See Detail 08/02/23 Range/Units 04:31 WBC 0.5 L* (3.8-10.6) k/uL RBC 1.94 L (3.80-5.40) m/uL Hgb 6.7 L* (11.4-16.0) gm/dL Hct 20.8 L (34.0-46.0) % MCV 107.1 H (80.0-100.0) fL RDW 18.0 H (11.5-15.5) % Plt Count 45 L (150-450) k/uL Neutrophils # 0.3 L* (1.3-7.7) k/uL Lymphocytes # 0.1 L (1.0-4.8) k/uL Macrocytosis Marked A Sodium (137-145) mmol/L BUN (7-17) mg/dL Glucose (74-99) mg/dL Albumin (PEP) (3.80-4.90) g/dL Edjbt-0-Emuuomalb (0.10-0.40) g/dL Yuvxo-9-Oqoarqxkc (0.60-1.00) g/dL Gamma Globulins (0.70-1.50) g/dL Free [place] LC, Quant (0.33-1.94) mg/dL Free [place] LC, Quant (0.57-2.63) mg/dL Crossmatch Microbiology - Last 24 Hours (Table) 07/31/23 04:12 Blood Culture - Preliminary Blood 07/29/23 21:15 Blood Culture Gram Stain - Final Blood Blood Culture - Final Enterobacter cloacae 07/29/23 21:00 Blood Culture Gram Stain - Final Blood Blood Culture - Final Enterobacter cloacae Diabetes panel 08/02/23 Range/Units 04:26 Sodium 133 L (137-145) mmol/L Potassium 4.6 (3.5-5.1) mmol/L Chloride 104 (98-107) mmol/L Carbon Dioxide 23 (22-30) mmol/L BUN 21 H (7-17) mg/dL Creatinine 0.81 (0.52-1.04) mg/dL Glucose 108 H (74-99) mg/dL Calcium 9.1 (8.4-10.2) mg/dL Calcium panel 08/02/23 Range/Units 04:26 Calcium 9.1 (8.4-10.2) mg/dL Pituitary panel 08/02/23 Range/Units 04:26 Sodium 133 L (137-145) mmol/L Potassium 4.6 (3.5-5.1) mmol/L Chloride 104 (98-107) mmol/L Carbon Dioxide 23 (22-30) mmol/L BUN 21 H (7-17) mg/dL Creatinine 0.81 (0.52-1.04) mg/dL Glucose 108 H (74-99) mg/dL Calcium 9.1 (8.4-10.2) mg/dL Adrenal panel 08/02/23 Range/Units 04:26 Sodium 133 L (137-145) mmol/L Potassium 4.6 (3.5-5.1) mmol/L Chloride 104 (98-107) mmol/L Carbon Dioxide 23 (22-30) mmol/L BUN 21 H (7-17) mg/dL Creatinine 0.81 (0.52-1.04) mg/dL Glucose 108 H (74-99) mg/dL Calcium 9.1 (8.4-10.2) mg/dL
[2023-08-02] MEDS: DEXTROSE 5% IN WATER 100 ML with AMIODARONE 150 MG IV ONE (09:30)
--- NOTE | 2023-08-02 09:35 | P.PN ---
Subjective Patient is seen in follow-up for acute kidney injury. Renal function back to baseline. Receiving IV fluids. Also receiving a unit of blood today for hemoglobin 6.7. Off vasopressors. Vital signs are stable. General: Resting in bed. HEENT: On nasal cannula. LUNGS: No audible rhonchi or wheezes. HEART: Rate and Rhythm are regular. ABDOMEN: Nontender. EXTREMITITES: No edema. Objective - Vital Signs Vital signs: Vital Signs Temp 98.4 F 08/02/23 08:57 Pulse 152 H 08/02/23 09:00 Resp 18 08/02/23 09:00 BP 92/73 08/02/23 09:00 Pulse Ox 93 L 08/02/23 09:00 FiO2 Intake & Output 08/01/23 08/02/23 08/02/23 18:59 06:59 18:59 Intake Total 1470 1100 620 Output Total 510 490 130 Balance 960 610 490 Weight 77.3 kg 77.4 kg Intake: IV 1350 1100 620 Cefepime 1 gm In Sodium 50 Chloride 0.9% 50 ml @ 12. 5 mls/hr IVPB Q12HR MARIE Rx#:[id number] Cefepime 2 gm In Sodium 100 Chloride 0.9% 100 ml @ 25 mls/hr IVPB Q12HR MARIE Rx #:[id number] Invasive Line 1 10 Invasive Line 3 10 Lactated Ringers 1,000 ml 1200 1100 300 @ 100 mls/hr IV .Q10H MARIE Rx#:[id number] Sodium Ferric Gluconat- 100 100 Sucrose 125 mg In Sodium Chloride 0.9% 100 ml @ 100 mls/hr IVPB DAILY MARIE Rx#:[id number] metroNIDAZOLE-NS PMX 500 100 mg In Saline 1 100ml.bag @ 100 mls/hr IVPB Q8HR MARIE Rx#:[id number] Oral 120 Blood Product 0 Rc As-1 Unit 0 [id number] Output: Urine 510 490 130 Other: Voiding Method Indwelling Catheter Indwelling Catheter Indwelling Catheter # Bowel Movements 0 - Labs CBC & Chem 7: 08/02/23 04:31 08/02/23 04:26 Labs: Abnormal Lab Results - Last 24 Hours (Table) 07/31/23 07/31/23 08/02/23 Range/Units 00:02 09:01 04:26 WBC (3.8-10.6) k/uL RBC (3.80-5.40) m/uL Hgb (11.4-16.0) gm/dL Hct (34.0-46.0) % MCV (80.0-100.0) fL RDW (11.5-15.5) % Plt Count (150-450) k/uL Neutrophils # (1.3-7.7) k/uL Lymphocytes # (1.0-4.8) k/uL Macrocytosis Sodium 133 L (137-145) mmol/L BUN 21 H (7-17) mg/dL Glucose 108 H (74-99) mg/dL Albumin (PEP) 2.05 L (3.80-4.90) g/dL Zfdbz-0-Qedyyurka 0.54 H (0.10-0.40) g/dL Oycqf-3-Fonjtqcst 0.57 L (0.60-1.00) g/dL Gamma Globulins 2.09 H (0.70-1.50) g/dL Free [place] LC, Quant 35.26 H (0.33-1.94) mg/dL Free [place] LC, Quant 0.23 L (0.57-2.63) mg/dL Crossmatch See Detail 08/02/23 Range/Units 04:31 WBC 0.5 L* (3.8-10.6) k/uL RBC 1.94 L (3.80-5.40) m/uL Hgb 6.7 L* (11.4-16.0) gm/dL Hct 20.8 L (34.0-46.0) % MCV 107.1 H (80.0-100.0) fL RDW 18.0 H (11.5-15.5) % Plt Count 45 L (150-450) k/uL Neutrophils # 0.3 L* (1.3-7.7) k/uL Lymphocytes # 0.1 L (1.0-4.8) k/uL Macrocytosis Marked A Sodium (137-145) mmol/L BUN (7-17) mg/dL Glucose (74-99) mg/dL Albumin (PEP) (3.80-4.90) g/dL Ixaxg-6-Hsmuegslh (0.10-0.40) g/dL Ipqeo-6-Schhjloqs (0.60-1.00) g/dL Gamma Globulins (0.70-1.50) g/dL Free [place] LC, Quant (0.33-1.94) mg/dL Free [place] LC, Quant (0.57-2.63) mg/dL Crossmatch Microbiology - Last 24 Hours (Table) 07/31/23 18:00 Urine Culture - Final Urine,Catheterized 07/31/23 04:12 Blood Culture - Preliminary Blood 07/29/23 21:15 Blood Culture Gram Stain - Final Blood Blood Culture - Final Enterobacter cloacae 07/29/23 21:00 Blood Culture Gram Stain - Final Blood Blood Culture - Final Enterobacter cloacae Assessment and Plan Plan: Assessment: 1. Acute kidney injury secondary to ATN secondary to septic shock. Resolved. No hydronephrosis noted on CAT scan. 2. Metabolic acidosis secondary to acute kidney injury status post bicarb drip. Improved. 3. Septic shock secondary to Enterobacter bacteremia on antibiotics. 4. Pancytopenia. Elevated kappa light chains. Oncology following. Bone marrow biopsy being considered. Also scheduled to receive a unit of blood today. 5. Small to moderate pericardial effusion. Plan: Maintain IV fluids. Avoid nephrotoxins. Continue to monitor renal function and urine output. Case discussed with bull rider. Transfer to tertiary care facility being considered.
--- NOTE | 2023-08-02 09:36 | XR ---
EXAMINATION TYPE: XR chest 1V portable DATE OF EXAM: 08/02/2023 COMPARISON: 07/31/2023 HISTORY: Dyspnea TECHNIQUE: Single frontal view of the chest is obtained. FINDINGS: There is increasing hazy airspace infiltrates diffusely predominantly in the mid and upper lung zones .. There is no pneumothorax or pleural effusion. Heart size is normal. The osseous structures are intact. There is a right breast implant. IMPRESSION: Interval worsening of acute cardiopulmonary disease with progressive hazy opacity involving the upper lung zone airspaces bilaterally. This is a nonspecific finding could represent pulmonary edema or an infectious process. Clinical correlation recommended.
[2023-08-02] MEDS: AMIODARONE 360 MG in DEXTROSE 5% IN WATER 200 ML IV ONE (09:40)
--- NOTE | 2023-08-02 11:47 | P.PN ---
Subjective Progress Note Date: 08/02/23 No acute events overnight. Patient was worsening abdominal distention. Per ICU nurse no flatus or bowel movement. No melena or hematochezia. Nausea but no emesis. No fevers or chills. Objective - Vital Signs Vital signs: Vital Signs Temp 98.0 F 08/02/23 11:38 Pulse 105 H 08/02/23 11:38 Resp 16 08/02/23 11:38 BP 126/85 08/02/23 11:38 Pulse Ox 95 08/02/23 11:38 FiO2 Intake & Output 08/01/23 08/02/23 08/02/23 18:59 06:59 18:59 Intake Total 1470 1100 1130 Output Total 450 177 4258 Balance 960 610 -40 Weight 77.3 kg 77.4 kg Intake: IV 1350 1100 820 Cefepime 1 gm In Sodium 50 Chloride 0.9% 50 ml @ 12. 5 mls/hr IVPB Q12HR MARIE Rx#:[id number] Cefepime 2 gm In Sodium 100 Chloride 0.9% 100 ml @ 25 mls/hr IVPB Q12HR MARIE Rx #:[id number] Invasive Line 1 10 Invasive Line 3 10 Lactated Ringers 1,000 ml 1200 1100 500 @ 100 mls/hr IV .Q10H MARIE Rx#:[id number] Sodium Ferric Gluconat- 100 100 Sucrose 125 mg In Sodium Chloride 0.9% 100 ml @ 100 mls/hr IVPB DAILY MARIE Rx#:[id number] metroNIDAZOLE-NS PMX 500 100 mg In Saline 1 100ml.bag @ 100 mls/hr IVPB Q8HR MARIE Rx#:[id number] Oral 120 Blood Product 310 Rc As-1 Unit 310 [id number] Output: Gastric Drainage 900 Urine 510 490 270 Other: Voiding Method Indwelling Catheter Indwelling Catheter Indwelling Catheter # Bowel Movements 0 - Exam Gen: AxO, appears uncomfortable Pulm: non-labored respirations Cards: RRR on monitor at time of evaluation Abd: soft, tender diffusely, largely distended. No guarding/rebound/rigidity Extrem: no edema seen - Labs CBC & Chem 7: 08/02/23 04:31 08/02/23 04:26 Labs: Abnormal Lab Results - Last 24 Hours (Table) 07/31/23 07/31/2308/01/24 Range/Units 00:02 09:01 04:26 WBC (3.8-10.6) k/uL RBC (3.80-5.40) m/uL Hgb (11.4-16.0) gm/dL Hct (34.0-46.0) % MCV (80.0-100.0) fL RDW (11.5-15.5) % Plt Count (150-450) k/uL Neutrophils # (1.3-7.7) k/uL Lymphocytes # (1.0-4.8) k/uL Macrocytosis Sodium 133 L (137-145) mmol/L BUN 21 H (7-17) mg/dL Glucose 108 H (74-99) mg/dL Albumin (PEP) 2.05 L (3.80-4.90) g/dL Fmzya-4-Wzmaxeylt 0.54 H (0.10-0.40) g/dL Vheal-3-Crdplhzcs 0.57 L (0.60-1.00) g/dL Gamma Globulins 2.09 H (0.70-1.50) g/dL Free [place] LC, Quant 35.26 H (0.33-1.94) mg/dL Free [place] LC, Quant 0.23 L (0.57-2.63) mg/dL Crossmatch See Detail 08/02/23 Range/Units 04:31 WBC 0.5 L* (3.8-10.6) k/uL RBC 1.94 L (3.80-5.40) m/uL Hgb 6.7 L* (11.4-16.0) gm/dL Hct 20.8 L (34.0-46.0) % MCV 107.1 H (80.0-100.0) fL RDW 18.0 H (11.5-15.5) % Plt Count 45 L (150-450) k/uL Neutrophils # 0.3 L* (1.3-7.7) k/uL Lymphocytes # 0.1 L (1.0-4.8) k/uL Macrocytosis Marked A Sodium (137-145) mmol/L BUN (7-17) mg/dL Glucose (74-99) mg/dL Albumin (PEP) (3.80-4.90) g/dL Mkooj-8-Bluookjib (0.10-0.40) g/dL Dytti-4-Elkfusfni (0.60-1.00) g/dL Gamma Globulins (0.70-1.50) g/dL Free [place] LC, Quant (0.33-1.94) mg/dL Free [place] LC, Quant (0.57-2.63) mg/dL Crossmatch Microbiology - Last 24 Hours (Table) 07/31/23 18:00 Urine Culture - Final Urine,Catheterized 07/31/23 04:12 Blood Culture - Preliminary Blood 07/29/23 21:15 Blood Culture Gram Stain - Final Blood Blood Culture - Final Enterobacter cloacae 07/29/23 21:00 Blood Culture Gram Stain - Final Blood Blood Culture - Final Enterobacter cloacae Assessment and Plan Assessment: 63 year old female who whom general surgery is consulted for management of small bowel obstruction as seen on CT Plan: -NPO -Recommend NGT insertion given worsening abdominal distention -IVF hydration -IV abx -PRN pain and nausea control -Care per ICU/Primary -Plan for SBFT in next 48 hours Trell York MD General Surgery
--- NOTE | 2023-08-02 12:27 | P.PN ---
Subjective Progress Note Date: 08/02/23 63-year-old female patient admitted to the intensive care unit with altered mentation, hypotension and acute kidney injury. The patient presented to the emergency department complaining of some back pain. She was altered, she was encephalopathic and weak. She was found to be hypotensive. She was given several fluid boluses and she remained hypotensive and the patient was started on pressors and currently she is on norepinephrine running at 0.1 mcg/kg/min. She was given a total of 4.5 L and currently 2 and a bicarb infusion running at 125 cc an hour. She is producing urine output. Noted that she had an acute kidney injury and the creatinine was elevated at 5.1 with a BUN of 68. Serum bicarb was at 8 with a potassium level of 5.6 and a sodium levels at 129. She probably has chronic Myelodysplasia as the patient's white cell count was low at 1 with a hemoglobin 9.1 and a platelet count of 153./The patient has pancytopenia. No respiratory difficulties. No cough or sputum production. Chest x-ray showed no evidence of any pneumonia. CT angiogram of the chest showed no evidence of any pulmonary embolism. CAT scan of the abdomen and pelvis was also done that showed no acute abnormalities. There was a small pericardial effusion. Nonspecific right inguinal lymphadenopathy was noted. The patient is having an echocardiogram this morning. The blood gas showed a pH of 7.39 with a pCO2 of 27 and pO2 of 81 minutes with an FiO2 of 28%. Creatinine is on the decline and currently is down to 3.37 with a BUN of 55 and his sodium level is at 133. Free cortisol level is at 33.9. Free T4 is at 0.6 which is essentially low. LDH is not elevated. The viral panel including influenza, COVID-19 and RSV were negative. Coagulation profile was within normal. D-dimer was at 3.98. CT angiogram was negative for any pulmonary embolism. CAT scan of the brain was also done in the emergency department along with a CT scan of the cervical spine showed no evidence of any cervical fracture and no evidence of any intracranial abnormalities. Mild spondylosis at the level of C6-C7. No focal neurological deficit. She is able to answer simple commands upon repeated stimulation. CPK was at 33. Troponins were negative. She has previous history of pulm embolism maintained on anticoagulation with Eliquis and this was placed on hold and the patient was started on IV heparin. She was also started empirically on a combination of Zosyn and vancomycin pending further cultures. 07/31/2023, the patient is being seen for a follow-up. Awake and alert and communicating. Continues to have back pain and MRI of the lumbar spine has been ordered. Meanwhile, the patient remains on IV fluids. The patient is on a bicarb infusion at the rate of 125 cc an hour. She also received a unit of packed RBC regarding a drop in hemoglobin down to 6.8 and the follow-up hemoglobin is currently at 8. She remains neutropenic with a white cell count of 0.8 and the patient is also septic and the blood cultures is positive for Enterobacter species. The patient is currently on IV cefepime. She remains on no pressors at this point. She did have an episode of atrial fibrillation yesterday. She was briefly placed on Cardizem at 10 mg an hour and she was given a bolus. She is back into normal sinus rhythm. She is maintained currently on amiodarone at 1 mg/min. In terms of her renal function, the patient's creatinine is improving. BUN is down to 35 with a creatinine of 1.55 and a sodium levels at 133 with a potassium level of 2.5. Oxygenation is stable and the patient is currently on 2 L of O2 nasal cannula with a pulse ox of 95%. Platelet count is also low at 67. A workup regarding this pancytopenia has been initiated. It is also still pending for now. Hepatitis profile has been negative. Iron levels were low and the patient was started on IV iron in addition. 08/01/2023, patient is being seen for a follow-up. The patient is awake and alert. She is complaining of abdominal pain abdominal distention that has developed over the past 24 hours. Noted the patient is neutropenic with a white cell count of 0.6 and the hemoglobin today is at 7.6. Platelet count is at 45. She had gram-negative sepsis and the patient remains on IV cefepime. She is off pressors. Cardiac rhythm is sinus. Function is improved and the follow-up blood work from today shows a BUN of 22 with a creatinine of 0.8 and a sodium noted at 134 and a potassium level is at 4.3. Lactic acid level is at 1.5. The patient is being seen by hematology oncology. This is regarding her pancytope ivone. The total serum protein was 6.4. Her free kappa light chains were elevated at 35.2. RIP and rheumatoid factor were negative. MRI of the back is also pending for now. No confusion. No altered mentation. She is awake and alert and communicating. 08/02/2023, patient's condition is essentially unchanged. Probably slightly worse in terms of her abdominal distention. No flatus. No bowel movement activity. No nausea or vomiting. No reported fever or chills. CAT scan of the abdomen was done yesterday minutes was consistent with markedly dilated air and fluid filled loops of the colon. There was a long segment of the sigmoid colon that was thickened and the patient also had dilated bowel in the proximal segments. There was moderate fluid in the cul-de-sac. No intraperitoneal air. Scattered groundglass pulmonary infiltrates in the lung base bilaterally. As such, there was evidence of acute sigmoid wall inflammation consistent with colitis. No diverticulitis. No neoplasm. The patient continues to be pancytopenic. The white cell count today is at 0.5. Hemoglobin is at 6.7 and a platelet count of 45. Limited input from hematology oncology. No immediate plans for biopsy of the bone marrow. Suspicious findings for myeloma. Repeat blood cultures have been negative. The patient is going to receive unit of packed RBC today. BUN is at 21 with a creatinine of 0.8 and a sodium levels at 133. The cardiac rhythm is sinus. The patient remains on a combination of c efepime and vancomycin. The electrolytes are all within normal limits. Hemodynamically stable and the patient is currently on 5 L of oxygen by nasal cannula with a pulse ox of 95%. Objective - Vital Signs Vital signs: Vital Signs Temp 98.0 F 08/02/23 11:38 Pulse 105 H 08/02/23 11:38 Resp 16 08/02/23 11:38 BP 126/85 08/02/23 11:38 Pulse Ox 95 08/02/23 11:38 FiO2 Intake & Output 08/01/23 08/02/23 08/02/23 18:59 06:59 18:59 Intake Total 1470 1100 1130 Output Total 124 011 1728 Balance 960 610 -40 Weight 77.3 kg 77.4 kg Intake: IV 1350 1100 820 Cefepime 1 gm In Sodium 50 Chloride 0.9% 50 ml @ 12. 5 mls/hr IVPB Q12HR MARIE Rx#:[id number] Cefepime 2 gm In Sodium 100 Chloride 0.9% 100 ml @ 25 mls/hr IVPB Q12HR MARIE Rx #:[id number] Invasive Line 1 10 Invasive Line 3 10 Lactated Ringers 1,000 ml 1200 1100 500 @ 100 mls/hr IV .Q10H MARIE Rx#:[id number] Sodium Ferric Gluconat- 100 100 Sucrose 125 mg In Sodium Chloride 0.9% 100 ml @ 100 mls/hr IVPB DAILY MARIE Rx#:[id number] metroNIDAZOLE-NS PMX 500 100 mg In Saline 1 100ml.bag @ 100 mls/hr IVPB Q8HR MARIE Rx#:[id number] Oral 120 Blood Product 310 Rc As-1 Unit 310 [id number] Output: Gastric Drainage 900 Urine 510 490 270 Other: Voiding Method Indwelling Catheter Indwelling Catheter Indwelling Catheter # Bowel Movements 0 - Exam GENERAL EXAM: Alert, 63-year-old white female, calm and comfortable, no agitation the patient has no signs of any respiratory distress. The patient is moving all 4 extremities. Is currently on 5 L of oxygen by nasal cannula HEAD: Normocephalic and atraumatic EYES: Normal reaction of pupils, equal size. NOSE: Clear with pink turbinates. THROAT: No erythema or exudates. NECK: No masses, no JVD. CHEST: No chest wall deformity. LUNGS: Equal air entry with no crackles, wheeze, rhonchi or dullness. On room air. No conversational dyspnea or accessory muscle use.. CVS: S1 and S2 normal with no audible murmur, regular rhythm. No extra heart sounds ABDOMEN: No hepatosplenomegaly, there is evidence of abdominal distention and d iffuse abdominal tenderness on today's examination. Organs cannot be accurately palpated. No guarding. Abdomen remains soft. SPINE: No scoliosis or deformity SKIN: No rashes CENTRAL NERVOUS SYSTEM: No focal deficits, tone is normal in all 4 extremities. The patient is encephalopathic. EXTREMITIES: There is no peripheral edema, clubbing, or cyanosis. Peripheral pulses are intact. - Labs CBC & Chem 7: 08/02/23 04:31 08/02/23 04:26 Labs: Abnormal Lab Results - Last 24 Hours (Table) 07/31/23 07/31/23 08/02/23 Range/Units 00:02 09:01 04:26 WBC (3.8-10.6) k/uL RBC (3.80-5.40) m/uL Hgb (11.4-16.0) gm/dL Hct (34.0-46.0) % MCV (80.0-100.0) fL RDW (11.5-15.5) % Plt Count (150-450) k/uL Neutrophils # (1.3-7.7) k/uL Lymphocytes # (1.0-4.8) k/uL Macrocytosis Sodium 133 L (137-145) mmol/L BUN 21 H (7-17) mg/dL Glucose 108 H (74-99) mg/dL Albumin (PEP) 2.05 L (3.80-4.90) g/dL Huwwk-9-Ifdqhcsoa 0.54 H (0.10-0.40) g/dL Xzsdw-0-Dvcdzwkoi 0.57 L (0.60-1.00) g/dL Gamma Globulins 2.09 H (0.70-1.50) g/dL Free Mandan LC, Quant 35.26 H (0.33-1.94) mg/dL Free Lambda LC, Quant 0.23 L (0.57-2.63) mg/dL Crossmatch See Detail 08/02/23 Range/Units 04:31 WBC 0.5 L* (3.8-10.6) k/uL RBC 1.94 L (3.80-5.40) m/uL Hgb 6.7 L* (11.4-16.0) gm/dL Hct 20.8 L (34.0-46.0) % MCV 107.1 H (80.0-100.0) fL RDW 18.0 H (11.5-15.5) % Plt Count 45 L (150-450) k/uL Neutrophils # 0.3 L* (1.3-7.7) k/uL Lymphocytes # 0.1 L (1.0-4.8) k/uL Macrocytosis Marked A Sodium (137-145) mmol/L BUN (7-17) mg/dL Glucose (74-99) mg/dL Albumin (PEP) (3.80-4.90) g/dL Sfppg-5-Quhtopyyu (0.10-0.40) g/dL Qmhwh-1-Zoivxyrqh (0.60-1.00) g/dL Gamma Globulins (0.70-1.50) g/dL Free Mandan LC, Quant (0.33-1.94) mg/dL Free Lambda LC, Quant (0.57-2.63) mg/dL Crossmatch Microbiology - Last 24 Hours (Table) 07/31/23 18:00 Urine Culture - Final Urine,Catheterized 07/31/23 04:12 Blood Culture - Preliminary Blood 07/29/23 21:15 Blood Culture Gram Stain - Final Blood Blood Culture - Final Enterobacter cloacae 07/29/23 21:00 Blood Culture Gram Stain - Final Blood Blood Culture - Final Enterobacter cloacae Assessment and Plan Plan: Neutropenic sepsis. The patient has gram-negative bacillus in the blood and the cultures are indicating Enterobacter species. The patient is currently on IV cefepime and Flagyl and the patient is currently on no pressors. Abdominal distention with signs of neutropenic colitis/sigmoid colitis with bowel wall thickening. No evidence of any free air within the abdomen. Pancytopenia, under investigation, awaiting further input from hematology oncology. No plans for bone marrow biopsy at this point in time. I think that the patient's sepsis was secondary to her pancytopenia. This needs to be obviously more investigated. Acute encephalopathy with altered mentation. This is most likely metabolic encephalopathy. CAT scan of the brain was negative. CT scan of the cervical spine showed no acute fracture. CAT scan of the chest abdomen and pelvis was essentially nonrevealing. Clinically improving and the mental status is back to his baseline Acute hypotension under investigation, rule out sepsis. The patient was given a total of 4.5 L of IV fluids and currently she is covered with empiric antibiotics. The patient is currently normotensive Acute kidney injury, nonoliguric creatinine has normalized Severe metabolic anion gap acidosis, improving and the patient remains on a bicarb infusion. Leukopenia, as part of pancytopenia, rule out underlying myelodysplasia, hematologic profile is in progress. The patient has elevated kappa light chains. Consider bone marrow biopsy. Anemia, no obvious acute blood loss, the patient is iron deficient based on the blood wo Multiple electrolyte abnormalities including hyperkalemia and hyponatremia, improved Mild transaminitis Mild systolic heart failure with an ejection fraction of 40 to 45% Small pericardial effusion noted on CT scan of the chest, incidental finding, Echocardiogram showed an ejection fraction of 40 to 45%. Small pericardial effusion. Otherwise no other acute abnormalities noted. History of pulmonary embolism, anticoagulated on Eliquis. Paroxysmal atrial fibrillation currently on amiodarone drip at 1 mg/min. Lower back pain, , awaiting MRI of the lumbar spine. History of bipolar/depression Plan: Titrate oxygen flow to maintain saturation above 90%, currently on 5 L Continue IV cefepime and add Flagyl regarding the possibility of abdominal sepsis/colitis/neutropenic colitis Lactic acid level is not elevated CAT scan of the abdomen and pelvis from yesterday was noted Awaiting final cultures and sensitivities from the blood cultures, the repeat cultures are negative Continue lactated Ringer at 100 cc an hour Monitor electrolytes and renal function Keep Crockett catheter in place nephrology consultation appreciated Hematology consultation is appreciatedine, elevated light chains, in my opinion, the patient is in need for a bone marrow biopsy. Condition is critical. The patient has complications of pancytopenia. The patient is going to receive unit of packed RBC today. However, based on the limited progress from the hematologic standpoint, I think it is reasonable to transfer this patient to a tertiary care center where further workup can be done regarding her pancytopenia including anemia and bone marrow biopsy/aspiration and interpretation of the findings in addition to close monitoring of her abdominal situation which includes ongoing colitis/neutropenic colitis. She is at high risk of having bowel perforation secondary to colitis and neutropenia and thrombocytopenia. General surgery is on board. Patient will be monitored in the intensive care unit. Condition is critical. Discussed the case with the medical team and I believe that the patient is better served at a tertiary care center and I am going to make recommendations for her to be moved to a tertiary care center.
--- NOTE | 2023-08-02 14:04 | P.PN ---
Subjective Progress Note Date: 08/02/23 Patient is a 63-year-old female with history of pulmonary embolism anticoagulated with Eliquis, GI bleed, GERD, and bipolar disorder who presented to the emergency room with complaints of back pain. On arrival to the emergency department her initial vital signs showed blood pressure of 98/57 however 45 minutes later she had a pulse of 124 with a blood pressure of 73/48. Initial laboratory analysis was remarkable for white blood cell count of 9, hemoglobin 9.1, INR 1.3, D-dimer 3.32, sodium 129, potassium 5.6, carbon dioxide 8, BUN 68, creatinine 5.13, AST 71, ALT 110. Initial urinalysis was negative. Patient had been given 2 L of fluid in the emergency department but remained hypotensive. Patient was called for admission. Her CT head and cervical spine then resulted with no acute intracranial abnormality but cervical spondylosis most progressed at C6-C7. CT chest abdomen and pelvis demonstrated nonspecific right inguinal adenopathy, superior endplate fracture of L3 likely Schmorl's node with clinical correlation recommended. She was given an additional 1 L fluid bolus and started on D5W with 3 A of bicarb. Nephrology was contacted. Arrangements were made for the patient to be admitted to the ICU. She was started on empiric Vanco and Zosyn due to refractory hypotension and shock, in conjunction with neutropenia. Critical care was consulted. Patient began to require norepinephrine. She was found to have Enterobacter bacteremia and antibiotics were streamlined to cefepime. Infectious disease was consulted.Repeat CBC on the patient showed a hemoglobin down to 6.6. 1 unit of packed red blood cells was ordered. Patient went into atrial fibrillation with rapid ventricular response and was initially given Cardizem and then placed on amiodarone bolus. She was more awake and alert by the morning of 07/31/23. Her vasopressors were able to be weaned on 08/01/23. Repeat CT abdomen pelvis shows moderate groundglass densities in the lung bases, long segment of markedly thickened sigmoid colon with proximal marked dilatation of the colon with air and fluid consistent with partial large bowel obstruction, likely acute sigmoid colitis or diverticulitis, neoplasm not entirely excluded. Continues to remain pancytopenic, requiring another unit of PRBCs on 08/01. Surgery was consulted. Recommending NG tube insertion, small bowel follow-through in 48 hours. Patient seen and examined at bedside. Has worsening abdominal pain. Also has nausea. Crockett catheter in place. No bowel movements recent. Per nurse, patient has been going in and out of A-fib RVR. Vital signs reviewed General: ill appearing, no distress, appears at stated age Cardiovascular: S1S2 reg, no murmur Lungs: Decreased bs bilateral, no rhonchi, no rales, no accessory muscle use Abdominal: soft, nontender to palpation, no guarding Ext: no gross muscle atrophy, no edema b/l lower extremities, no contractures Neuro: CN II-XI grossly intact, no focal neuro deficits Psych: Alert, oriented, appropriate affect Assessment/Plan: Neutroepnic sepsis Septic Shock, resolved Enterobacter cloacae bacteremia Acute colitis Acute hypoxic respiratory failure - off norepi -Cefepime 1 g every 12 hours D #4 - Flagyl 500 mg IV every 8 hours day #2 -Discussed management with ICU, consider transferring patient for further hematologic workup Spoke with [facility] transfer center, unable to accept the patient as she is receiving appropriate care at the moment, the earliest she can possibly go to [facility] would be after the weekend -ID following -Repeat blood culture from 07/30 negative growth to date -Continue with IV fluids Continue to wean oxygen, already on IV antibiotics Partial large bowl obstruction -Status post NG tube Surgery recommending small bowel follow-through Acute kidney injury, improved Hyponatremia. improved Hypokalemia, improved -Nephrology recommendations: Continue with IV fluids and antibiotics -No signs of hydronephrosis on CT abdomen and pelvis Paroxysmal atrial fibrillation with rapid ventricular response Cardiomyopathy with ejection fraction 40 to 45% -Cardiology following, recommending amiodarone drip -Anticoagulation currently on hold due to platelets less than 50 -Echocardiogram obtained 07/29 which showed ejection fraction of 40 to 45% - not a candidate for GDMT due to hypotension Pancytopenia with neutropenia, anemia, and now thrombocytopenia -Status post 2 unit of PRBCs -Discussed plan with oncology, recommending bone marrow biopsy early next week, will be considering filgrastim - follow CBC -HIV negative Bipolar disorder -Trileptal decreased to 100 3 times daily, due to potential risk for pancytopenia, on Seroquel for 400 daily which is also a reduced dose Hx of Pulmonary embolism - hold AC due to plt less than 50 Hypomagnesemia, resolved Endplate fracture L3, possible Schmorl's node Hyperkalemia, resolved Anion gap metabolic acidosis, resolved Imaging: CT abdomen and pelvis reviewed: Possible partial large bowel obstruction likely secondary to acute sigmoid wall inflammation from IBD or diverticulitis. Neopla sm not completely excluded. 2.8 cm mass in the right superficial inguinal region suspicious for reactive lymphadenopathy. Data Review: WBC 0.5, hemoglobin 6.7, neutrophil 0.3, sodium 133, creatinine 0.81 EKG independently interpreted, shows A-fib with RVR chest x-ray independently interpreted, shows interstitial opacities Enterobacter cloacae bacteremia sensitive to cefepime but multidrug-resistant to cephalosporins. DVT prophylaxis: SCDs Anticipated discharge date: Pending Clinical Course Anticipated discharge place: Pending Clinical Course Objective - Vital Signs Vital signs: Vital Signs Temp 98.0 F 08/02/23 11:38 Pulse 105 H 08/02/23 11:38 Resp 16 08/02/23 11:38 BP 126/85 08/02/23 11:38 Pulse Ox 95 08/02/23 12:53 FiO2 Intake & Output 08/01/23 08/02/23 08/02/23 18:59 06:59 18:59 Intake Total 1470 1100 1130 Output Total 966 247 8148 Balance 960 610 -40 Weight 77.3 kg 77.4 kg Intake: IV 1350 1100 820 Cefepime 1 gm In Sodium 50 Chloride 0.9% 50 ml @ 12. 5 mls/hr IVPB Q12HR MARIE Rx#:[id number] Cefepime 2 gm In Sodium 100 Chloride 0.9% 100 ml @ 25 mls/hr IVPB Q12HR MARIE Rx #:[id number] Invasive Line 1 10 Invasive Line 3 10 Lactated Ringers 1,000 ml 1200 1100 500 @ 100 mls/hr IV .Q10H MARIE Rx#:[id number] Sodium Ferric Gluconat- 100 100 Sucrose 125 mg In Sodium Chloride 0.9% 100 ml @ 100 mls/hr IVPB DAILY MARIE Rx#:[id number] metroNIDAZOLE-NS PMX 500 100 mg In Saline 1 100ml.bag @ 100 mls/hr IVPB Q8HR MARIE Rx#:[id number] Oral 120 Blood Product 310 Rc As-1 Unit 310 [id number] Output: Gastric Drainage 900 Urine 510 490 270 Other: Voiding Method Indwelling Catheter Indwelling Catheter Indwelling Catheter # Bowel Movements 0 - Labs CBC & Chem 7: 08/02/23 04:31 08/02/23 04:26 Labs: Abnormal Lab Results - Last 24 Hours (Table) 07/31/23 07/31/23 08/02/23 Range/Units 00:02 09:01 04:26 WBC (3.8-10.6) k/uL RBC (3.80-5.40) m/uL Hgb (11.4-16.0) gm/dL Hct (34.0-46.0) % MCV (80.0-100.0) fL RDW (11.5-15.5) % Plt Count (150-450) k/uL Neutrophils # (1.3-7.7) k/uL Lymphocytes # (1.0-4.8) k/uL Macrocytosis Sodium 133 L (137-145) mmol/L BUN 21 H (7-17) mg/dL Glucose 108 H (74-99) mg/dL Albumin (PEP) 2.05 L (3.80-4.90) g/dL Lzgbq-9-Plukgihnj 0.54 H (0.10-0.40) g/dL Jrfta-8-Povgmwhnm 0.57 L (0.60-1.00) g/dL Gamma Globulins 2.09 H (0.70-1.50) g/dL Crossmatch See Detail 08/02/23 Range/Units 04:31 WBC 0.5 L* (3.8-10.6) k/uL RBC 1.94 L (3.80-5.40) m/uL Hgb 6.7 L* (11.4-16.0) gm/dL Hct 20.8 L (34.0-46.0) % MCV 107.1 H (80.0-100.0) fL RDW 18.0 H (11.5-15.5) % Plt Count 45 L (150-450) k/uL Neutrophils # 0.3 L* (1.3-7.7) k/uL Lymphocytes # 0.1 L (1.0-4.8) k/uL Macrocytosis Marked A Sodium (137-145) mmol/L BUN (7-17) mg/dL Glucose (74-99) mg/dL Albumin (PEP) (3.80-4.90) g/dL Egvls-4-Nzhckcyfc (0.10-0.40) g/dL Hjbbm-1-Cgnfhhdha (0.60-1.00) g/dL Gamma Globulins (0.70-1.50) g/dL Crossmatch Microbiology - Last 24 Hours (Table) 07/31/23 04:12 Blood Culture - Preliminary Blood 07/31/23 18:00 Urine Culture - Final Urine,Catheterized 07/29/23 21:15 Blood Culture Gram Stain - Final Blood Blood Culture - Final Enterobacter cloacae 07/29/23 21:00 Blood Culture Gram Stain - Final Blood Blood Culture - Final Enterobacter cloacae
--- NOTE | 2023-08-02 15:15 | P.PCN ---
Date of Procedure: 08/02/23 Operative Findings: Preoperative Diagnosis: Septic Postoperative Diagnosis: Septic Procedure(s) Performed: central line Anesthesia: local Operative Findings: Central Line Procedure Note Indication: [x_] Hypotension/Sepsis/Need for Pressors [_] Vascular Access [_] Dialysis Access [_] Suspected Central Line Infection [_] Line Malfunction [_] Other: _ Central Line Location: [_x] Right or [_] Left [_] Internal Jugular Vein or [ ] Subclavian Vein or [_x ] Femoral Vein Consent: [_] Consent was obtained from prior to the procedure. Indications, risks and benefits were discussed prior to the procedure. [x_] The procedure was performed emergently and the permission was implied because of the emergent nature. PROCEDURE SUMMARY: The [facility] Central Line Insertion Practices form was completed during and immediately following the procedure. A time out was performed. My hands were washed immediately prior to the procedure. I wore a surgical cap, mask with protective eyewear, full gown and sterile gloves throughout the procedure. The patient was placed in Trendelenburg position. The Left chest was prepped using chlorhexidine scrub and draped in sterile fashion using a three quarter sheet drape and sterile towels. Skin preparation was allowed to dry prior to skin puncture. Anatomic landmarks were identified. Anesthesia was achieved over the vein using 1% lidocaine. The introducer needle was inserted into the vein under direct ultrasound visualization. Venous blood was withdrawn. The syringe was removed and a guidewire was advanced into the introducer needle. A small incision was made at the skin surface with a scalpel and the introducer needle was exchanged for a dilator over the guidewire. After appropriate dilation was obtained, the dilator was exchanged over the wire for an antimicrobial coated central venous catheter. The wire was removed and the catheter was sutured in place . A biopatch was placed at the insertion site. A sterile op-site was placed over the catheter and biopatch. The patient tolerated the procedure without any hemodynamic compromise. At time of procedure completion, all ports aspirated and flushed properly. Post-procedure chest x-ray : [_] Is pending at this time. [ ] Shows adequate positioning of the catheter for use. [x] Not needed as the patient underwent a femoral line insertion
--- NOTE | 2023-08-02 15:40 | P.PN ---
Subjective HISTORY OF PRESENTING ILLNESS Patient pleasant 63-year-old female with history of anxiety, bipolar depression, pancytopenia, prior pulmonary embolism, anemia, prior breast surgery who presents secondary to generalized weakness and has had lengthy stay. Patient initially had a chest abdomen pelvis CAT scan which did show a small to moderate pericardial effusion and also found to have blood culture positive for Enterobacter. She has been placed on antibiotics and currently in ICU with borderline blood pressures. She has been treated for sepsis with additional likely mild dysplastic syndrome. Cardiology was a consultative secondary to episode of A. fib with RVR. Patient was placed on amiodarone drip and converted back to sinus rhythm. She states she was not very symptomatic. Echocardiogram 07/29 showed EF 40-45%. She does have history of previous pulmonary embolism however anticoagulation has been held secondary to anemia and thrombocytopenia. Currently remains in sinus tachycardia with heart rates from the 90s to 120 range. She does admit to increased abdominal pain over last 24 hours and has no appetite. CT abdomen and pelvis was performed which showed stable small pericardial effusion however concern of inflammation of the bowel with possible bowel obstruction. 08/01 Patient seen and examined. Patient still having significant pancytopenia with hemoglobin down to 6.7. She did receive 1 unit packed red blood cells for anemia. She still has significant abdominal pain. NG tube was placed with some 900 mL gastric contents removed. Receiving IV fluids at 100 mL per hour. She was in A. fib with RVR with heart rates in the 130s to 140s and therefore amiodarone drip was restarted and currently in sinus rhythm with heart rates in the 90s to 100s. PHYSICAL EXAMINATION Vital signs reviewed. CONSTITUTIONAL: No apparent distress. HEENT: Head is normocephalic. Pupils are equal, round. Sclerae anicteric. Mucous membranes of the mouth are moist. No JVD. No carotid bruit. CHEST EXAMINATION: Lungs are clear to auscultation. No chest wall tenderness is noted on palpation or with deep breathing. HEART EXAMINATION: Regular rate and rhythm. S1, S2 heard. No murmurs, gallops or rub. ABDOMEN: +tenderness to palpation. Positive bowel sounds. EXTREMITIES: 2+ peripheral pulses, no lower extremity edema and no calf tenderness. NEUROLOGIC EXAMINATION: Patient is awake, alert and oriented x3. ASSESSMENT 1. Paroxysmal atrial fibrillation, new onset 2. Septic shock 3. Pancytopenia 4. History of pulmonary embolism 5. Mild decreased EF 40-45% 6. Chronic systolic heart failure 7. Small pericardial effusion, no signs of tamponade on echo PLAN Patient having recurrent episodes of atrial fibrillation and therefore continue with amiodarone. Monitor liver functions. No anticoagulation given severe pancytopenia requiring transfusions. Hopefully with improvement sepsis. Heart rates will be better controlled. Still does have mild cardiomyopathy however unable to tolerate heart failure regimen secondary to hypotension. Echocardiogram had small pericardial effusion however no evidence of tamponade. Continue with IV fluids given patient currently nothing by mouth with possible bowel obstruction. Continue with supportive care. Prognosis guarded. Objective - Vital Signs Vital signs: Vital Signs Temp 98.0 F 08/02/23 11:38 Pulse 105 H 08/02/23 11:38 Resp 16 08/02/23 11:38 BP 126/85 08/02/23 11:38 Pulse Ox 95 08/02/23 12:53 FiO2 Intake & Output 08/01/23 08/02/23 08/02/23 18:59 06:59 18:59 Intake Total 1470 1100 1130 Output Total 983 140 9529 Balance 960 610 -40 Weight 77.3 kg 77.4 kg Intake: IV 1350 1100 820 Cefepime 1 gm In Sodium 50 Chloride 0.9% 50 ml @ 12. 5 mls/hr IVPB Q12HR MARIE Rx#:[id number] Cefepime 2 gm In Sodium 100 Chloride 0.9% 100 ml @ 25 mls/hr IVPB Q12HR MARIE Rx #:[id number] Invasive Line 1 10 Invasive Line 3 10 Lactated Ringers 1,000 ml 1200 1100 500 @ 100 mls/hr IV .Q10H MARIE Rx#:[id number] Sodium Ferric Gluconat- 100 100 Sucrose 125 mg In Sodium Chloride 0.9% 100 ml @ 100 mls/hr IVPB DAILY MARIE Rx#:[id number] metroNIDAZOLE-NS PMX 500 100 mg In Saline 1 100ml.bag @ 100 mls/hr IVPB Q8HR MARIE Rx#:[id number] Oral 120 Blood Product 310 Rc As-1 Unit 310 [id number] Output: Gastric Drainage 900 Urine 510 490 270 Other: Voiding Method Indwelling Catheter Indwelling Catheter Indwelling Catheter # Bowel Movements 0 - Labs CBC & Chem 7: 08/02/23 04:31 08/02/23 04:26 Labs: Abnormal Lab Results - Last 24 Hours (Table) 07/31/23 07/31/23 08/02/23 Range/Units 00:02 09:01 04:26 WBC (3.8-10.6) k/uL RBC (3.80-5.40) m/uL Hgb (11.4-16.0) gm/dL Hct (34.0-46.0) % MCV (80.0-100.0) fL RDW (11.5-15.5) % Plt Count (150-450) k/uL Neutrophils # (1.3-7.7) k/uL Lymphocytes # (1.0-4.8) k/uL Macrocytosis Sodium 133 L (137-145) mmol/L BUN 21 H (7-17) mg/dL Glucose 108 H (74-99) mg/dL Albumin (PEP) 2.05 L (3.80-4.90) g/dL Gkhfq-4-Lfxuspkiq 0.54 H (0.10-0.40) g/dL Itcjd-1-Qfmxewdwb 0.57 L (0.60-1.00) g/dL Gamma Globulins 2.09 H (0.70-1.50) g/dL Crossmatch See Detail 08/02/23 Range/Units 04:31 WBC 0.5 L* (3.8-10.6) k/uL RBC 1.94 L (3.80-5.40) m/uL Hgb 6.7 L* (11.4-16.0) gm/dL Hct 20.8 L (34.0-46.0) % MCV 107.1 H (80.0-100.0) fL RDW 18.0 H (11.5-15.5) % Plt Count 45 L (150-450) k/uL Neutrophils # 0.3 L* (1.3-7.7) k/uL Lymphocytes # 0.1 L (1.0-4.8) k/uL Macrocytosis Marked A Sodium (137-145) mmol/L BUN (7-17) mg/dL Glucose (74-99) mg/dL Albumin (PEP) (3.80-4.90) g/dL Esyjj-9-Mxmftdkxn (0.10-0.40) g/dL Wcojc-7-Eglwrpmpt (0.60-1.00) g/dL Gamma Globulins (0.70-1.50) g/dL Crossmatch Microbiology - Last 24 Hours (Table) 07/31/23 04:12 Blood Culture - Preliminary Blood 07/31/23 18:00 Urine Culture - Final Urine,Catheterized
--- NOTE | 2023-08-02 15:56 | P.PN ---
Subjective Progress Note Date: 08/02/23 Principal diagnosis: Reason for follow-up visit Enterobacter bacteremia Patient is a 63-year-old female with a past medical history significant for reflux PE anxiety bipolar depression patient was brought into the hospital for 1 day history of severe low back pain, patient was noted to be febrile did have elevated lactic acid abnormality of likely on the CT abdominal pelvis and a positive blood culture concerning for possible discitis osteomyelitis. On today's evaluation that is 08/02/2023, Patient is afebrile patient is currently on 3 L nasal cannula oxygen and breathing comfortably no chest pain patient did have NG for the abnormality seen on the CT patient is currently off the pressor support however the patient remains to be on amiodarone for heart rate control per the nursing staff. Patient white count 0.5, creatinine 0.81 blood cultures which has been negative so far Objective - Vital Signs Vital signs: Vital Signs Temp 98.0 F 08/02/23 12:00 Pulse 98 08/02/23 15:00 Resp 22 08/02/23 15:00 BP 105/62 08/02/23 15:00 Pulse Ox 92 L 08/02/23 15:00 FiO2 Intake & Output 08/01/23 08/02/23 08/02/23 18:59 06:59 18:59 Intake Total 1470 1100 1130 Output Total 811 629 9069 Balance 960 610 -40 Weight 77.3 kg 77.4 kg Intake: IV 1350 1100 820 Cefepime 1 gm In Sodium 50 Chloride 0.9% 50 ml @ 12. 5 mls/hr IVPB Q12HR MARIE Rx#:[id number] Cefepime 2 gm In Sodium 100 Chloride 0.9% 100 ml @ 25 mls/hr IVPB Q12HR MARIE Rx #:[id number] Invasive Line 1 10 Invasive Line 3 10 Lactated Ringers 1,000 ml 1200 1100 500 @ 100 mls/hr IV .Q10H MARIE Rx#:[id number] Sodium Ferric Gluconat- 100 100 Sucrose 125 mg In Sodium Chloride 0.9% 100 ml @ 100 mls/hr IVPB DAILY MARIE Rx#:[id number] metroNIDAZOLE-NS PMX 500 100 mg In Saline 1 100ml.bag @ 100 mls/hr IVPB Q8HR MARIE Rx#:[id number] Oral 120 Blood Product 310 Rc As-1 Unit 310 [id number] Output: Gastric Drainage 900 Urine 510 490 270 Other: Voiding Method Indwelling Catheter Indwelling Catheter Indwelling Catheter # Bowel Movements 0 - Exam GENERAL DESCRIPTION: Middle-aged female lying in bed in no distress RESPIRATORY SYSTEM: Unlabored breathing , decreased breath sounds at bases HEART: S1 S2 regular rate and rhythm , ABDOMEN: Soft , no tenderness EXTREMITIES: No edema feet - Labs CBC & Chem 7: 08/02/23 04:31 08/02/23 04:26 Labs: Abnormal Lab Results - Last 24 Hours (Table) 07/31/23 08/02/23 08/02/23 Range/Units 00:02 04:26 04:31 WBC 0.5 L* (3.8-10.6) k/uL RBC 1.94 L (3.80-5.40) m/uL Hgb 6.7 L* (11.4-16.0) gm/dL Hct 20.8 L (34.0-46.0) % MCV 107.1 H (80.0-100.0) fL RDW 18.0 H (11.5-15.5) % Plt Count 45 L (150-450) k/uL Neutrophils # 0.3 L* (1.3-7.7) k/uL Lymphocytes # 0.1 L (1.0-4.8) k/uL Macrocytosis Marked A Sodium 133 L (137-145) mmol/L BUN 21 H (7-17) mg/dL Glucose 108 H (74-99) mg/dL Crossmatch See Detail Microbiology - Last 24 Hours (Table) 07/31/23 04:12 Blood Culture - Preliminary Blood 07/31/23 18:00 Urine Culture - Final Urine,Catheterized Assessment and Plan (1) Gram-negative bacteremia Current Visit: Yes Status: Acute Priority: High Code(s): R78.81 - BACTEREMIA SNOMED Code(s): 240251189310 Plan: 1patient presented to hospital with sepsis in this patient who did have a fever tachycardia hypotension significant leukopenia now with evidence of Enterobacter bacteremia in this patient with significant lower back pain, some abnormality of the L3 was seen on the CT abdominal pelvis concern for possible discitis or osteomyelitis as no other focus of infection with clinically as well as on the basis of investigation done so far 2-patient with a renal insufficiency high risk of nephrotoxicity: 3-patient repeat CT abdominal pelvis did show significant change in the sigmoid colon could be the source of this bacteremia 4-patient repeat blood culture has been negative so far, patient will continue cefepime and Flagyl and monitor clinical course closely Dictation was produced using [employer] 3D dictation software. please excuse any grammatical, word or spelling errors. Time with Patient: Less than 30
[2023-08-02] MEDS: AMIODARONE 450 MG in DEXTROSE 5% IN WATER 250 ML IV SCH (16:10)
[2023-08-02] MEDS: CEFEPIME 2 GM in SODIUM CHLORIDE 0.9% 100 ML IVPB SCH (16:15)
[2023-08-02 16:19] LABS: Glucose,Whole Blood 124 mg/dL (70-110)
--- NOTE | 2023-08-02 16:36 | XR ---
EXAMINATION TYPE: XR chest 1V portable DATE OF EXAM: 08/02/2023 COMPARISON: 08/02/2023 HISTORY: Tube placement TECHNIQUE: Single frontal view of the chest is obtained. FINDINGS: NG tube seen coursing of the abdomen likely within the stomach. Bilateral patchy airspace disease is stable. No sizable pleural effusion on the right. Costophrenic angle on the left is not in cluded in the pbmhw-rd-seje. Degenerative change of the spine. No sizable pneumothorax. Heart is enla rged. IMPRESSION: 1. Bilateral patchy consolidations may be on the basis of CHF with pulmonary edema. Diffuse pneumonia also a consideration. Findings stable. 2. NG tube appears in good position coursing into the left upper quadrant.
[2023-08-02] MEDS: OXcarbazepine 300 MG TAB PO SCH (17:10)
[2023-08-02 17:29] LABS: INR 1.6 (<1.2); Partial Thromboplastin Time 42.1 sec (22.0-30.0); Prothrombin Time 16.4 sec (10.0-12.5)
[2023-08-02 17:43] LABS: ALT 25 U/L (4-34); AST 36 U/L (14-36); African American GFR (CKD) 86 (>60 ml/min/1.73 sqM); Albumin 2.3 g/dL (3.5-5.0); Alkaline Phosphatase 94 U/L (38-126); Anion Gap 7 mmol/L; Blood Urea Nitrogen 19 mg/dL (7-17); Carbon Dioxide 23 mmol/L (22-30); Chloride 104 mmol/L (98-107); Glucose 117 mg/dL (74-99); Magnesium 1.3 mg/dL (1.6-2.3); Non-African American GFR(CKD) 75 (>60 ml/min/1.73 sqM); Potassium 3.4 mmol/L (3.5-5.1); Sodium 134 mmol/L (137-145); Total Bilirubin 0.9 mg/dL (0.2-1.3); Total Protein 6.7 g/dL (6.3-8.2)
[2023-08-02 17:45] LABS: Anisocytosis Slight; HCT 24.8 % (34.0-46.0); Hypochromasia Slight; MCH 34.3 pg (25.0-35.0); MCHC 32.2 g/dL (31.0-37.0); MCV 106.3 fL (80.0-100.0); Macrocytosis Marked; RBC 2.33 m/uL (3.80-5.40); RDW 19.3 % (11.5-15.5)
[2023-08-02 17:48] LABS: Platelet Count 49 k/uL (150-450); WBC 0.4 k/uL (3.8-10.6)
[2023-08-02] MEDS ORDERED: Magnesium Replacement Protocol 1 EACH MISC MISCELLANE PRN (18:39)
--- NOTE | 2023-08-02 19:00 | P.PN ---
Subjective Progress Note Date: 08/02/23 Patient seen in ICU at todays visit. Pressors have been stopped, blood pressure stable. Pt is more somonolent at todays visit, but is reporting she is feeling improved today. Upper abdominal pain persisting. No reported episodes of acute bleeding. WBC 0.5, Hemoglobin 6.7, platelets 45,000. 1 unit PRBCs ordered. NG tube in place for bowel obstruction. Continues on IV abx Objective - Vital Signs Vital signs: Vital Signs Temp 98.0 F 08/02/23 11:38 Pulse 105 H 08/02/23 11:38 Resp 16 08/02/23 11:38 BP 126/85 08/02/23 11:38 Pulse Ox 95 08/02/23 12:53 FiO2 Intake & Output 08/01/23 08/02/23 08/02/23 18:59 06:59 18:59 Intake Total 1470 1100 1130 Output Total 017 898 4824 Balance 960 610 -40 Weight 77.3 kg 77.4 kg Intake: IV 1350 1100 820 Cefepime 1 gm In Sodium 50 Chloride 0.9% 50 ml @ 12. 5 mls/hr IVPB Q12HR MARIE Rx#:[id number] Cefepime 2 gm In Sodium 100 Chloride 0.9% 100 ml @ 25 mls/hr IVPB Q12HR [facility] Rx #:[id number] Invasive Line 1 10 Invasive Line 3 10 Lactated Ringers 1,000 ml 1200 1100 500 @ 100 mls/hr IV .Q10H MARIE Rx#:[id number] Sodium Ferric Gluconat- 100 100 Sucrose 125 mg In Sodium Chloride 0.9% 100 ml @ 100 mls/hr IVPB DAILY [facility]IE Rx#:[id number] metroNIDAZOLE-NS PMX 500 100 mg In Saline 1 100ml.bag @ 100 mls/hr IVPB Q8HR MARIE Rx#:[id number] Oral 120 Blood Product 310 Rc As-1 Unit 310 [id number] Output: Gastric Drainage 900 Urine 510 490 270 Other: Voiding Method Indwelling Catheter Indwelling Catheter Indwelling Catheter # Bowel Movements 0 - Constitutional General appearance: Present: no acute distress - Respiratory Details: breathing even and unlabored - Cardiovascular Details: tachycardic - Gastrointestinal General gastrointestinal: Present: tenderness Localized gastrointestinal: tender: RUQ, LUQ, epigastric periumbilical - Integumentary Integumentary: Present: pale. Absent: cyanotic - Neurologic Neurologic Comment(s): somnolent - Musculoskeletal Musculoskeletal: Present: generalized weakness - Labs CBC & Chem 7: 08/02/23 17:01 08/02/23 17:01 Labs: Abnormal Lab Results - Last 24 Hours (Table) 07/31/23 07/31/23 08/02/23 Range/Units 00:02 09:01 04:26 WBC (3.8-10.6) k/uL RBC (3.80-5.40) m/uL Hgb (11.4-16.0) gm/dL Hct (34.0-46.0) % MCV (80.0-100.0) fL RDW (11.5-15.5) % Plt Count (150-450) k/uL Neutrophils # (1.3-7.7) k/uL Lymphocytes # (1.0-4.8) k/uL Macrocytosis Sodium 133 L (137-145) mmol/L BUN 21 H (7-17) mg/dL Glucose 108 H (74-99) mg/dL Albumin (PEP) 2.05 L (3.80-4.90) g/dL Rnfmv-0-Pzynvptwm 0.54 H (0.10-0.40) g/dL Vyrwf-9-Ntkotxhrt 0.57 L (0.60-1.00) g/dL Gamma Globulins 2.09 H (0.70-1.50) g/dL Crossmatch See Detail 08/02/23 Range/Units 04:31 WBC 0.5 L* (3.8-10.6) k/uL RBC 1.94 L (3.80-5.40) m/uL Hgb 6.7 L* (11.4-16.0) gm/dL Hct 20.8 L (34.0-46.0) % MCV 107.1 H (80.0-100.0) fL RDW 18.0 H (11.5-15.5) % Plt Count 45 L (150-450) k/uL Neutrophils # 0.3 L* (1.3-7.7) k/uL Lymphocytes # 0.1 L (1.0-4.8) k/uL Macrocytosis Marked A Sodium (137-145) mmol/L BUN (7-17) mg/dL Glucose (74-99) mg/dL Albumin (PEP) (3.80-4.90) g/dL Hjgty-8-Yccpukptx (0.10-0.40) g/dL Wovrk-7-Nsbwjpcud (0.60-1.00) g/dL Gamma Globulins (0.70-1.50) g/dL Crossmatch Microbiology - Last 24 Hours (Table) 07/31/23 18:00 Urine Culture - Final Urine,Catheterized 07/31/23 04:12 Blood Culture - Preliminary Blood 07/29/23 21:15 Blood Culture Gram Stain - Final Blood Blood Culture - Final Enterobacter cloacae 07/29/23 21:00 Blood Culture Gram Stain - Final Blood Blood Culture - Final Enterobacter cloacae Assessment and Plan (1) Gram-negative bacteremia Current Visit: Yes Status: Acute Priority: High Code(s): R78.81 - BACTEREMIA SNOMED Code(s): 271150337655 (2) Pancytopenia Current Visit: Yes Status: Acute Priority: High Code(s): D61.818 - OTHER PANCYTOPENIA SNOMED Code(s): 621906416 (3) Macrocytic anemia with vitamin B12 deficiency Current Visit: Yes Status: Chronic Priority: Medium Code(s): D51.8 - OTHER VITAMIN B12 DEFICIENCY ANEMIAS SNOMED Code(s): 10097808 (4) Neutropenic colitis Current Visit: Yes Status: Suspected Priority: High Code(s): D70.9 - N EUTROPENIA, UNSPECIFIED; K52.89 - OTHER SPECIFIED NONINFECTIVE GASTROENTERITIS AND COLITIS SNOMED Code(s): 329026847 Plan: Pancytopenia, macrocytic anemia and B12 deficiency -Hemoglobin 6.7 today, 1 unit PRBCs ordered. Transfuse for hemoglobin less than 7 or if patient is symptomatic. CBC daily -Platelets 45,000. DIC and HIT ab negative. Repeat DIC workup negative today. -Unclear the exact etiology of pancytopenia at this time. Suspect sepsis contributing to pancytopenia as well as medications, as was felt to be the case when worked up by [employer] late last year for macrocytic anemia. There are concerns for an underlying bone marrow problem as well due to the severity of the pancytopenia. -Work up has revealed kappa light chain 35.26 and lambda light chain 0.23 with elevated ratio of 153.3. SPEP revealed M spike 2.78. Immunofixation and immunoglobulins pending. Findings concerning for multiple myeloma. Bone marrow biopsy was discussed with pt. She was agreeable to the same. Would like pt to be more stable before proceeding with biopsy. Will continue to monitor with hopes to schedule biopsy in the next cpl days -Will start G-CSF with a goal of ANC greater than 1000 -Spoke with IM team regarding workup, concern for multiple myeloma and plans for bone marrow biopsy. Unfortunately due to acute condition with active infection and bowel obstruction would not recommend bone marrow biopsy until she is more stable. Plan as of now, pending her recovery would be to reevaluate within the next cpl days to proceed with biopsy and to continue to closely monitor counts/labs and for supportive transfusions. At this time pulmonary medicine recommending transfer to tertiary center for bone marrow biopsy. Our recomme ndations have been provided, will defer further decisions regarding transfer to IM/pulm teams. -Patient is also on pysch meds, trileptal and seroquel. Although not a common side effect, but are known to have effects on blood counts. May be additive and contributing some to cytopenias, may want to consider medication adjustment Abdominal pain, neutropenia -Concerns for neutropenic colitis. -Ultrasound of the abdomen reported pain with exam, bowel gas obstructing view. Abd is distended and is having diffuse tenderness -CT abdomen pelvis obtained revealing moderate groundglass densities in the lung bases, right greater than left. Small pericardial effusion. Long segment of markedly thickened segment of the colon wall with proximal marked dilatation of the colon with air and fluid consistent with a partial large bowel obstruction. Right superficial inguinal adenopathy. -General surgery has been consulted. Recommending continuation of IV abx, NG tube, and possible small bowel follow through. No endoscopic evaluation planned at this time -NPO diet PE -Diagnosed May. Been on eliquis for the same -Concerns for bleeding, anticoagluation has been held. SCDs for DVT proph ylaxis.
[2023-08-02] MEDS: MAGNESIUM SULFATE-D5W PMX 1 GM in DEXTROSE/WATER 1 100ML.BAG IVPB SCH (19:02)
[2023-08-02] MEDS: POTASSIUM CHLORIDE 20 MEQ in WATER FOR INJECTION 1 100ML.BAG IVPB SCH (19:03)
[2023-08-02] MEDS: OXcarbazepine 300MG/5ML SUSP 15,000 MG/250 ML BOTTLE PO SCH (19:04)
[2023-08-02 19:23] LABS: Rouleaux Present
[2023-08-02] MEDS: FILGRASTIM-SNDZ 480 MCG/0.8 ML SYRINGE SQ SCH (20:26)
[2023-08-02 23:34] LABS: Immunoglobulin G <300.0 mg/dL (700.0-1600.0); Immunoglobulin M <35.0 mg/dL (40.0-280.0)
[2023-08-03 00:31] LABS: Glucose,Whole Blood 145 mg/dL (70-110)
--- NOTE | 2023-08-03 04:04 | P.PN ---
Subjective HISTORY OF PRESENTING ILLNESS Patient pleasant 63-year-old female with history of anxiety, bipolar depression, pancytopenia, prior pulmonary embolism, anemia, prior breast surgery who presents secondary to generalized weakness and has had lengthy stay. Patient initially had a chest abdomen pelvis CAT scan which did show a small to moderate pericardial effusion and also found to have blood culture positive for Enterobacter. She has been placed on antibiotics and currently in ICU with borderline blood pressures. She has been treated for sepsis with additional likely mild dysplastic syndrome. Cardiology was a consultative secondary to epi sode of A. fib with RVR. Patient was placed on amiodarone drip and converted back to sinus rhythm. She states she was not very symptomatic. Echocardiogram 07/29 showed EF 40-45%. She does have history of previous pulmonary embolism however anticoagulation has been held secondary to anemia and thrombocytopenia. Currently remains in sinus tachycardia with heart rates from the 90s to 120 range. She does admit to increased abdominal pain over last 24 hours and has no appetite. CT abdomen and pelvis was performed which showed stable small pericardial effusion however concern of inflammation of the bowel with possible bowel obstruction. 08/01 Patient seen and examined. Patient still having significant pancytopenia with hemoglobin down to 6.7. She did receive 1 unit packed red blood cells for anemia. She still has significant abdominal pain. NG tube was placed with some 900 mL gastric contents removed. Receiving IV fluids at 100 mL per hour. She was in A. fib with RVR with heart rates in the 130s to 140s and therefore amiodarone drip was restarted and currently in sinus rhythm with heart rates in the 90s to 100s. 08/02 Date examined. Patient somewhat delirious and confused and therefore was placed in soft wrist restraints. Denies any chest pain or pressure. Still having a bdominal pain. Receiving IV fluids at 100 mL per hour. No bowel movement. Still has NG tube in place. Remains on amiodarone drip currently in sinus rhythm. PHYSICAL EXAMINATION Vital signs reviewed. CONSTITUTIONAL: No apparent distress. HEENT: Head is normocephalic. Pupils are equal, round. Sclerae anicteric. Mucous membranes of the mouth are moist. No JVD. No carotid bruit. CHEST EXAMINATION: Lungs are clear to auscultation. No chest wall tenderness is noted on palpation or with deep breathing. HEART EXAMINATION: Regular rate and rhythm. S1, S2 heard. No murmurs, gallops or rub. ABDOMEN: +tenderness to palpation. Positive bowel sounds. EXTREMITIES: 2+ peripheral pulses, no lower extremity edema and no calf tenderness. NEUROLOGIC EXAMINATION: Patient is awake, alert and oriented x3. ASSESSMENT 1. Paroxysmal atrial fibrillation, new onset 2. Septic shock 3. Pancytopenia 4. History of pulmonary embolism 5. Mild decreased EF 40-45% 6. Chronic systolic heart failure 7. Small pericardial effusion, no signs of tamponade on echo PLAN Patient having recurrent episodes of atrial fibrillation and therefore continue with amiodarone. Transition to orals when bowel obstruction has improved. No anticoagulation given severe pancytopenia requiring transfusions. Still does have mild cardiomyopathy however unable to tolerate heart failure regimen secondary to hypotension. Echocardiogram had small pericardial effusion however no evidence of tamponade. Continue with IV fluids given patient currently nothing by mouth with possible bowel obstruction. Continue with supportive care. Prognosis guarded. Objective - Vital Signs Vital signs: Vital Signs Temp 98.3 F 08/03/23 00:00 Pulse 99 08/03/23 02:00 Resp 120 H 08/03/23 02:00 BP 98/55 08/03/23 02:00 Pulse Ox 94 L 08/03/23 02:00 FiO2 Intake & Output 08/02/23 08/02/23 08/03/23 06:59 18:59 06:59 Intake Total 1100 2299.998 820 Output Total 490 1770 455 Balance 610 529.998 365 Weight 77.4 kg Intake: IV 1100 1790 820 Cefepime 2 gm In Sodium 200 100 Chloride 0.9% 100 ml @ 25 mls/hr IVPB Q12HR [facility] Rx #:[id number] Invasive Line 1 10 Invasive Line 3 10 Invasive Line 5 10 10 Invasive Line 6 30 10 Invasive Line 7 30 Lactated Ringers 1,000 ml 1100 1200 600 @ 100 mls/hr IV .Q10H [facility] Rx#:[id number] Sodium Ferric Gluconat- 100 Sucrose 125 mg In Sodium Chloride 0.9% 100 ml @ 100 mls/hr IVPB DAILY [facility] Rx#:[id number] metroNIDAZOLE-NS PMX 500 200 100 mg In Saline 1 100ml.bag @ 100 mls/hr IVPB Q8HR [facility] Rx#:[id number] Intake, IV Titration 199.998 Amount Amiodarone 360 mg In 199.998 Dextrose 5% in Water 200 ml @ 1 MG/MIN 33.333 mls/ hr IV .Q6H [facility] Rx#: [id number] Blood Product 310 Rc As-1 Unit 310 [id number] Output: Gastric Drainage 1150 Urine 490 620 455 Other: Voiding Method Indwelling Catheter Indwelling Catheter Indwelling Catheter # Bowel Movements 0 0 - Labs CBC & Chem 7: 08/02/23 17:01 08/03/23 01:44 Labs: Abnormal Lab Results - Last 24 Hours (Table) 07/31/23 08/02/23 08/02/23 Range/Units 00:02 04:26 04:31 WBC 0.5 L* (3.8-10.6) k/uL RBC 1.94 L (3.80-5.40) m/uL Hgb 6.7 L* (11.4-16.0) gm/dL Hct 20.8 L (34.0-46.0) % MCV 107.1 H (80.0-100.0) fL RDW 18.0 H (11.5-15.5) % Plt Count 45 L (150-450) k/uL Neutrophils # 0.3 L* (1.3-7.7) k/uL Lymphocytes # 0.1 L (1.0-4.8) k/uL Macrocytosis Marked A PT (10.0-12.5) sec INR (<1.2) APTT (22.0-30.0) sec Sodium 133 L (137-145) mmol/L Potassium (3.5-5.1) mmol/L BUN 21 H (7-17) mg/dL Glucose 108 H (74-99) mg/dL POC Glucose (mg/dL) (70-110) mg/dL Magnesium (1.6-2.3) mg/dL Albumin (3.5-5.0) g/dL IgG (700.0-1600.0) mg/dL IgA (60.0-350.0) mg/dL IgM (40.0-280.0) mg/dL Crossmatch See Detail 08/02/23 08/02/23 08/02/23 Range/Units 16:17 17:01 17:01 WBC 0.4 L* (3.8-10.6) k/uL RBC 2.33 L (3.80-5.40) m/uL Hgb 8.0 L (11.4-16.0) gm/dL Hct 24.8 L (34.0-46.0) % MCV 106.3 H (80.0-100.0) fL RDW 19.3 H (11.5-15.5) % Plt Count 49 L (150-450) k/uL Neutrophils # (1.3-7.7) k/uL Lymphocytes # (1.0-4.8) k/uL Macrocytosis Marked A PT (10.0-12.5) sec INR (<1.2) APTT (22.0-30.0) sec Sodium 134 L (137-145) mmol/L Potassium 3.4 L (3.5-5.1) mmol/L BUN 19 H (7-17) mg/dL Glucose 117 H (74-99) mg/dL POC Glucose (mg/dL) 124 H (70-110) mg/dL Magnesium 1.3 L (1.6-2.3) mg/dL Albumin 2.3 L (3.5-5.0) g/dL IgG (700.0-1600.0) mg/dL IgA (60.0-350.0) mg/dL IgM (40.0-280.0) mg/dL Crossmatch 08/02/23 08/02/23 08/03/23 Range/Units 17:01 17:01 00:29 WBC (3.8-10.6) k/uL RBC (3.80-5.40) m/uL Hgb (11.4-16.0) gm/dL Hct (34.0-46.0) % MCV (80.0-100.0) fL RDW (11.5-15.5) % Plt Count (150-450) k/uL Neutrophils # (1.3-7.7) k/uL Lymphocytes # (1.0-4.8) k/uL Macrocytosis PT 16.4 H (10.0-12.5) sec INR 1.6 H (<1.2) APTT 42.1 H (22.0-30.0) sec Sodium (137-145) mmol/L Potassium (3.5-5.1) mmol/L BUN (7-17) mg/dL Glucose (74-99) mg/dL POC Glucose (mg/dL) 145 H (70-110) mg/dL Magnesium (1.6-2.3) mg/dL Albumin (3.5-5.0) g/dL IgG <300.0 L (700.0-1600.0) mg/dL IgA 3389.0 H (60.0-350.0) mg/dL IgM <35.0 L (40.0-280.0) mg/dL Crossmatch Microbiology - Last 24 Hours (Table) 07/31/23 04:12 Blood Culture - Preliminary Blood 07/31/23 18:00 Urine Culture - Final Urine,Catheterized
[2023-08-03] MEDS: POTASSIUM CHLORIDE 10 MEQ in WATER FOR INJECTION 1 100ML.BAG IVPB SCH (04:46)
[2023-08-03 04:59] LABS: INR 1.5 (<1.2); Partial Thromboplastin Time 47.1 sec (22.0-30.0); Prothrombin Time 15.7 sec (10.0-12.5)
[2023-08-03 05:19] LABS: African American GFR (CKD) 83 (>60 ml/min/1.73 sqM); Anion Gap 7 mmol/L; Blood Urea Nitrogen 17 mg/dL (7-17); Calcium 9.4 mg/dL (8.4-10.2); Carbon Dioxide 23 mmol/L (22-30); Chloride 105 mmol/L (98-107); Glucose 146 mg/dL (74-99); Magnesium 2.7 mg/dL (1.6-2.3); Non-African American GFR(CKD) 72 (>60 ml/min/1.73 sqM); Potassium 3.6 mmol/L (3.5-5.1); Sodium 135 mmol/L (137-145)
[2023-08-03 06:46] LABS: Glucose,Whole Blood 133 mg/dL (70-110)
[2023-08-03] MEDS: FUROSEMIDE 10 MG/ML 4 ML VIAL IV STA (08:34)
[2023-08-03] MEDS: LACTATED RINGERS 1,000 ML IV SCH (08:34)
[2023-08-03 09:19] LABS: Anisocytosis Slight; HCT 22.9 % (34.0-46.0); HGB 7.5 gm/dL (11.4-16.0); MCHC 32.8 g/dL (31.0-37.0); MCV 103.7 fL (80.0-100.0); Macrocytosis Marked; RBC 2.21 m/uL (3.80-5.40); RDW 19.4 % (11.5-15.5)
[2023-08-03 09:33] LABS: WBC 0.5 k/uL (3.8-10.6)
[2023-08-03 09:34] LABS: Platelet Count 48 k/uL (150-450)
[2023-08-03 10:30] LABS: Rouleaux Present
--- NOTE | 2023-08-03 10:42 | P.PN ---
Subjective Patient is seen in follow-up for acute kidney injury. Renal function back to baseline. Received a dose of IV Lasix this morning. Hemoglobin 7.5. Off vasopressors. Vital signs are stable. General: Resting in bed. HEENT: On nasal cannula. Has NG tube. LUNGS: No audible rhonchi or wheezes. HEART: Rate and Rhythm are regular. ABDOMEN: Nontender. EXTREMITITES: No edema. Objective - Vital Signs Vital signs: Vital Signs Temp 98.5 F 08/03/23 08:00 Pulse 95 08/03/23 08:00 Resp 25 H 08/03/23 08:00 BP 103/59 08/03/23 08:00 Pulse Ox 95 08/03/23 08:00 FiO2 Intake & Output 08/02/23 08/03/23 08/03/23 18:59 06:59 18:59 Intake Total 2299.998 1556.394 400 Output Total 1770 730 290 Balance 529.998 826.394 110 Weight 77.5 kg Intake: IV 1790 1320 400 Cefepime 2 gm In Sodium 200 100 100 Chloride 0.9% 100 ml @ 25 mls/hr IVPB Q12HR [facility] Rx #:[id number] Invasive Line 1 10 Invasive Line 3 10 Invasive Line 5 10 10 Invasive Line 6 30 10 Invasive Line 7 30 Lactated Ringers 1,000 ml 1200 1000 200 @ 100 mls/hr IV .Q10H [facility] Rx#:[id number] Potassium Chloride 20 meq 100 In Water For Injection 1 100ml.bag @ 50 mls/hr IVPB Q2H [facility] Rx#: [id number] Sodium Ferric Gluconat- 100 Sucrose 125 mg In Sodium Chloride 0.9% 100 ml @ 100 mls/hr IVPB DAILY [facility] Rx#:[id number] metroNIDAZOLE-NS PMX 500 200 100 100 mg In Saline 1 100ml.bag @ 100 mls/hr IVPB Q8HR [facility] Rx#:[id number] Intake, IV Titration 199.998 236.394 Amount Amiodarone 360 mg In 199.998 Dextrose 5% in Water 200 ml @ 1 MG/MIN 33.333 mls/ hr IV .Q6H [facility] Rx#: [id number] Amiodarone 450 mg In 236.394 Dextrose 5% in Water 250 ml @ 0.5 MG/MIN 16.667 mls/hr IV .Q15H [facility] Rx#: [id number] Oral 0 Tube Feeding 0 Blood Product 310 0 Rc As-1 Unit 310 [id number] Other 0 Output: Gastric Drainage 1150 150 Urine 620 730 140 Other: Voiding Method Indwelling Catheter Indwelling Catheter Indwelling Catheter # Bowel Movements 0 0 0 - Labs CBC & Chem 7: 08/03/23 08:54 08/03/23 03:00 Labs: Abnormal Lab Results - Last 24 Hours (Table) 07/31/23 08/02/23 08/02/23 Range/Units 00:02 16:17 17:01 WBC 0.4 L* (3.8-10.6) k/uL RBC 2.33 L (3.80-5.40) m/uL Hgb 8.0 L (11.4-16.0) gm/dL Hct 24.8 L (34.0-46.0) % MCV 106.3 H (80.0-100.0) fL RDW 19.3 H (11.5-15.5) % Plt Count 49 L (150-450) k/uL Macrocytosis Marked A PT (10.0-12.5) sec INR (<1.2) APTT (22.0-30.0) sec Sodium (137-145) mmol/L Potassium (3.5-5.1) mmol/L BUN (7-17) mg/dL Glucose (74-99) mg/dL POC Glucose (mg/dL) 124 H (70-110) mg/dL Magnesium (1.6-2.3) mg/dL Albumin (3.5-5.0) g/dL IgG (700.0-1600.0) mg/dL IgA (60.0-350.0) mg/dL IgM (40.0-280.0) mg/dL Crossmatch See Detail 08/02/23 08/02/23 08/02/23 Range/Units 17:01 17:01 17:01 WBC (3.8-10.6) k/uL RBC (3.80-5.40) m/uL Hgb (11.4-16.0) gm/dL Hct (34.0-46.0) % MCV (80.0-100.0) fL RDW (11.5-15.5) % Plt Count (150-450) k/uL Macrocytosis PT 16.4 H (10.0-12.5) sec INR 1.6 H (<1.2) APTT 42.1 H (22.0-30.0) sec Sodium 134 L (137-145) mmol/L Potassium 3.4 L (3.5-5.1) mmol/L BUN 19 H (7-17) mg/dL Glucose 117 H (74-99) mg/dL POC Glucose (mg/dL) (70-110) mg/dL Magnesium 1.3 L (1.6-2.3) mg/dL Albumin 2.3 L (3.5-5.0) g/dL IgG <300.0 L (700.0-1600.0) mg/dL IgA 3389.0 H (60.0-350.0) mg/dL IgM <35.0 L (40.0-280.0) mg/dL Crossmatch 08/03/23 08/03/23 08/03/23 Range/Units 00:29 03:00 05:00 WBC (3.8-10.6) k/uL RBC (3.80-5.40) m/uL Hgb (11.4-16.0) gm/dL Hct (34.0-46.0) % MCV (80.0-100.0) fL RDW (11.5-15.5) % Plt Count (150-450) k/uL Macrocytosis PT 15.7 H (10.0-12.5) sec INR 1.5 H (<1.2) APTT 47.1 H (22.0-30.0) sec Sodium 135 L (137-145) mmol/L Potassium (3.5-5.1) mmol/L BUN (7-17) mg/dL Glucose 146 H (74-99) mg/dL POC Glucose (mg/dL) 145 H (70-110) mg/dL Magnesium 2.7 H (1.6-2.3) mg/dL Albumin (3.5-5.0) g/dL IgG (700.0-1600.0) mg/dL IgA (60.0-350.0) mg/dL IgM (40.0-280.0) mg/dL Crossmatch 08/03/23 08/03/23 Range/Units 06:44 08:54 WBC 0.5 L* (3.8-10.6) k/uL RBC 2.21 L (3.80-5.40) m/uL Hgb 7.5 L (11.4-16.0) gm/dL Hct 22.9 L (34.0-46.0) % MCV 103.7 H (80.0-100.0) fL RDW 19.4 H (11.5-15.5) % Plt Count 48 L (150-450) k/uL Macrocytosis Marked A PT (10.0-12.5) sec INR (<1.2) APTT (22.0-30.0) sec Sodium (137-145) mmol/L Potassium (3.5-5.1) mmol/L BUN (7-17) mg/dL Glucose (74-99) mg/dL POC Glucose (mg/dL) 133 H (70-110) mg/dL Magnesium (1.6-2.3) mg/dL Albumin (3.5-5.0) g/dL IgG (700.0-1600.0) mg/dL IgA (60.0-350.0) mg/dL IgM (40.0-280.0) mg/dL Crossmatch Microbiology - Last 24 Hours (Table) 07/31/23 04:12 Blood Culture - Preliminary Blood 07/31/23 18:00 Urine Culture - Final Urine,Catheterized Assessment and Plan Plan: Assessment: 1. Acute kidney injury secondary to ATN secondary to septic shock. Resolved. No hydronephrosis noted on CAT scan. 2. Metabolic acidosis secondary to acute kidney injury status post bicarb drip. Improved. 3. Septic shock secondary to Enterobacter bacteremia on antibiotics. 4. Pancytopenia. Elevated kappa light chains. Oncology following. Bone marrow biopsy being considered. Status post blood transfusions this admission. 5. Small to moderate pericardial effusion. 6. Volume overload. 7. A-fib with RVR maintained on amiodarone drip. Cardiology following. 8. Partial small bowel obstruction. Surgery following. Plan: Status post IV Lasix this morning. Avoid nephrotoxins. Continue to monitor renal function and urine output. Potassium replaced.
--- NOTE | 2023-08-03 10:50 | P.PN ---
Subjective Progress Note Date: 08/03/23 CHIEF COMPLAINT: Abdominal pain HISTORY OF PRESENT ILLNESS: The patient is a 63 year old female seen in the ICU for abdominal pain. Patient presents with neutropenia and malignancy of uncertain etiology. She reports her abdominal pain has improved. She is passing flatus. Nasogastric tube present. She is strictly NPO. She is a neutropenic precautions. She did receive blood products of 2 units during current hospitalization. REVIEW OF ORGAN SYSTEMS: No shortness of breath. No chest pain. No fevers or chills PHYSICAL EXAM: VITALS: Reviewed CONSTITUTIONAL: Well developed and in no acute distress. EYES: Conjuctivae without sclera icterus. Extraocular movements grossly intact. HEAD, EARS, NOSE, THROAT: Moist buccal mucosa. Head is atraumatic, normocephalic. Hears conversational speech. No nasal drainage. Nasogastric tube present, bilious RESPIRATORY: Non-labored respirations and equal bilateral excursions. No gross wheezes. CARDIOVASCULAR: Palpable 2+ radial pulses. ABDOMEN: No diffuse peritonitis. Decreased abdominal distention. MUSCULOSKELETAL: No clubbing cyanosis or edema SKIN: Warm and well perfused with good skin turgor. NEUROLOGIC: Cranial nerves II through XII grossly intact. No focal or lateralizing signs. PSYCH: Flat affect. Alert and oriented person place and time. CLINCAL LABS: Reviewed. WBC less than 1.0, neutropenic. Hemoglobin 7.5, anemia. IMAGING: Independently reviewed. X-ray reviewed demonstrating no pneumothorax. This is my independent interpretation. ASSESSMENT: 1. Abdominal pain, lower abdomen 2. Colitis sigmoid colon 3. Neutropenia 4. Anemia 5. Elevated liver enzyme 6. Malignancy of uncertain etiology PLAN: 1. At this time, limited resources available at current institution especially for hematological assessment and management. 2. Patient presents with complicated multiple medical comorbidities which would make any surgical intervention extremely high risk. 3. Due to limited resources at this facility, agree with transfer to tertiary care center for further management. 4. May have ice chips and popsicles in the interim Objective - Vital Signs Vital signs: Vital Signs Temp 98.5 F 08/03/23 08:00 Pulse 95 08/03/23 08:00 Resp 25 H 08/03/23 08:00 BP 103/59 08/03/23 08:00 Pulse Ox 95 08/03/23 08:00 FiO2 Intake & Output 03/08/03/23 08/03/23 18:59 06:59 18:59 Intake Total 2299.998 1556.394 400 Output Total 1770 730 290 Balance 529.998 826.394 110 Weight 77.5 kg Intake: IV 1790 1320 400 Cefepime 2 gm In Sodium 200 100 100 Chloride 0.9% 100 ml @ 25 mls/hr IVPB Q12HR [facility] Rx #:[id number] Invasive Line 1 10 Invasive Line 3 10 Invasive Line 5 10 10 Invasive Line 6 30 10 Invasive Line 7 30 Lactated Ringers 1,000 ml 1200 1000 200 @ 100 mls/hr IV .Q10H [facility] Rx#:[id number] Potassium Chloride 20 meq 100 In Water For Injection 1 100ml.bag @ 50 mls/hr IVPB Q2H [facility] Rx#: [id number] Sodium Ferric Gluconat- 100 Sucrose 125 mg In Sodium Chloride 0.9% 100 ml @ 100 mls/hr IVPB DAILY [facility] Rx#:[id number] metroNIDAZOLE-NS PMX 500 200 100 100 mg In Saline 1 100ml.bag @ 100 mls/hr IVPB Q8HR [facility] Rx#:[id number] Intake, IV Titration 199.998 236.394 Amount Amiodarone 360 mg In 199.998 Dextrose 5% in Water 200 ml @ 1 MG/MIN 33.333 mls/ hr IV .Q6H [facility] Rx#: [id number] Amiodarone 450 mg In 236.394 Dextrose 5% in Water 250 ml @ 0.5 MG/MIN 16.667 mls/hr IV .Q15H [facility] Rx#: [id number] Oral 0 Tube Feeding 0 Blood Product 310 0 Rc As-1 Unit 310 [id number] Other 0 Output: Gastric Drainage 1150 150 Urine 620 730 140 Other: Voiding Method Indwelling Catheter Indwelling Catheter Indwelling Catheter # Bowel Movements 0 0 0 - Labs CBC & Chem 7: 08/03/23 08:54 08/03/23 03:00 Labs: Abnormal Lab Results - Last 24 Hours (Table) 07/31/23 08/02/23 08/02/23 Range/Units 00:02 16:17 17:01 WBC 0.4 L* (3.8-10.6) k/uL RBC 2.33 L (3.80-5.40) m/uL Hgb 8.0 L (11.4-16.0) gm/dL Hct 24.8 L (34.0-46.0) % MCV 106.3 H (80.0-100.0) fL RDW 19.3 H (11.5-15.5) % Plt Count 49 L (150-450) k/uL Macrocytosis Marked A PT (10.0-12.5) sec INR (<1.2) APTT (22.0-30.0) sec Sodium (137-145) mmol/L Potassium (3.5-5.1) mmol/L BUN (7-17) mg/dL Glucose (74-99) mg/dL POC Glucose (mg/dL) 124 H (70-110) mg/dL Magnesium (1.6-2.3) mg/dL Albumin (3.5-5.0) g/dL IgG (700.0-1600.0) mg/dL IgA (60.0-350.0) mg/dL IgM (40.0-280.0) mg/dL Crossmatch See Detail 08/02/23 08/02/23 08/02/23 Range/Units 17:01 17:01 17:01 WBC (3.8-10.6) k/uL RBC (3.80-5.40) m/uL Hgb (11.4-16.0) gm/dL Hct (34.0-46.0) % MCV (80.0-100.0) fL RDW (11.5-15.5) % Plt Count (150-450) k/uL Macrocytosis PT 16.4 H (10.0-12.5) sec INR 1.6 H (<1.2) APTT 42.1 H (22.0-30.0) sec Sodium 134 L (137-145) mmol/L Potassium 3.4 L (3.5-5.1) mmol/L BUN 19 H (7-17) mg/dL Glucose 117 H (74-99) mg/dL POC Glucose (mg/dL) (70-110) mg/dL Magnesium 1.3 L (1.6-2.3) mg/dL Albumin 2.3 L (3.5-5.0) g/dL IgG <300.0 L (700.0-1600.0) mg/dL IgA 3389.0 H (60.0-350.0) mg/dL IgM <35.0 L (40.0-280.0) mg/dL Crossmatch 08/03/23 08/03/23 08/03/23 Range/Units 00:29 03:00 05:00 WBC (3.8-10.6) k/uL RBC (3.80-5.40) m/uL Hgb (11.4-16.0) gm/dL Hct (34.0-46.0) % MCV (80.0-100.0) fL RDW (11.5-15.5) % Plt Count (150-450) k/uL Macrocytosis PT 15.7 H (10.0-12.5) sec INR 1.5 H (<1.2) APTT 47.1 H (22.0-30.0) sec Sodium 135 L (137-145) mmol/L Potassium (3.5-5.1) mmol/L BUN (7-17) mg/dL Glucose 146 H (74-99) mg/dL POC Glucose (mg/dL) 145 H (70-110) mg/dL Magnesium 2.7 H (1.6-2.3) mg/dL Albumin (3.5-5.0) g/dL IgG (700.0-1600.0) mg/dL IgA (60.0-350.0) mg/dL IgM (40.0-280.0) mg/dL Crossmatch 08/03/23 08/03/23 Range/Units 06:44 08:54 WBC 0.5 L* (3.8-10.6) k/uL RBC 2.21 L (3.80-5.40) m/uL Hgb 7.5 L (11.4-16.0) gm/dL Hct 22.9 L (34.0-46.0) % MCV 103.7 H (80.0-100.0) fL RDW 19.4 H (11.5-15.5) % Plt Count 48 L (150-450) k/uL Macrocytosis Marked A PT (10.0-12.5) sec INR (<1.2) APTT (22.0-30.0) sec Sodium (137-145) mmol/L Potassium (3.5-5.1) mmol/L BUN (7-17) mg/dL Glucose (74-99) mg/dL POC Glucose (mg/dL) 133 H (70-110) mg/dL Magnesium (1.6-2.3) mg/dL Albumin (3.5-5.0) g/dL IgG (700.0-1600.0) mg/dL IgA (60.0-350.0) mg/dL IgM (40.0-280.0) mg/dL Crossmatch Microbiology - Last 24 Hours (Table) 07/31/23 04:12 Blood Culture - Preliminary Blood 07/31/23 18:00 Urine Culture - Final Urine,Catheterized
--- NOTE | 2023-08-03 11:25 | P.PN ---
Subjective Progress Note Date: 08/03/23 Patient is a 63-year-old female with history of pulmonary embolism anticoagulated with Eliquis, GI bleed, GERD, and bipolar disorder who presented to the emergency room with complaints of back pain. On arrival to the emergency department her initial vital signs showed blood pressure of 98/57 however 45 minutes later she had a pulse of 124 with a blood pressure of 73/48. Initial laboratory analysis was remarkable for white blood cell count of 9, hemoglobin 9.1, INR 1.3, D-dimer 3.32, sodium 129, potassium 5.6, carbon dioxide 8, BUN 68, creatinine 5.13, AST 71, ALT 110. Initial urinalysis was negative. Patient had been given 2 L of fluid in the emergency department but remained hypotensive. Patient was called for admission. Her CT head and cervical spine then resulted with no acute intracranial abnormality but cervical spondylosis most progressed at C6-C7. CT chest abdomen and pelvis demonstrated nonspecific right inguinal adenopathy, superior endplate fracture of L3 likely Schmorl's node with clinical correlation recommended. She was given an additional 1 L fluid bolus and started on D5W with 3 A of bicarb. Nephrology was contacted. Arrangements were made for the patient to be admitted to the ICU. She was started on empiric Vanco and Zosyn due to refractory hypotension and shock, in conjunction with neutropenia. Critical care was consulted. Patient began to require norepinephrine. She was found to have Enterobacter bacteremia and antibiotics were streamlined to cefepime. Infectious disease was consulted.Repeat CBC on the patient showed a hemoglobin down to 6.6. 1 unit of packed red blood cells was ordered. Patient went into atrial fibrillation with rapid ventricular response and was initially given Cardizem and then placed on amiodarone bolus. She was more awake and alert by the morning of 07/31/23. Her vasopressors were able to be weaned on 08/01/23. Repeat CT abdomen pelvis shows moderate groundglass densities in the lung bases, long segment of markedly thickened sigmoid colon with proximal marked dilatation of the colon with air and fluid consistent with partial large bowel obstruction, likely acute sigmoid colitis or diverticulitis, neoplasm not entirely excluded. Continues to remain pancytopenic, requiring another unit of PRBCs on 08/01. Surgery was consulted. NG tube placed. [facility] was contacted with regards to transfer, however, was refused as she is receiving appropriate care at this facility at the moment. Patient seen and examined at bedside. Still has periods of confusion, did rip out her NG tube twice. Denies any chest pain, abdominal pain, nausea, vomiting. No bowel movements. Urinary catheter in place. No active bleeding, NG tube in place Vital signs reviewed General: Chronically ill appearing, no distress, appears at stated age Chest: Large chest wall nodule next to breast augmentation from prior rupture, mildly tender to palpation Cardiovascular: S1S2 reg, no murmur Lungs: Decreased bs bilateral, no rhonchi, no rales, no accessory muscle use Abdominal: soft, mildly tender to palpation, no guarding, NG tube in place Ext: no gross muscle atrophy, no edema b/l lower extremities, no contractures Neuro: CN II-XI grossly intact, no focal neuro deficits Psych: Alert, oriented x2, appropriate affect Assessment/Plan: Neutroepnic sepsis Pancytopenia Septic Shock, resolved Enterobacter cloacae bacteremia Acute colitis Acute hypoxic respiratory failure - off norepi -Cefepime 1 g every 12 hours D #5 - Flagyl 500 mg IV every 8 hours day #3 -ICU following Spoke with [facility] transfer center, unable to accept the patient as she is receiving appropriate care at the moment, the earliest she can possibly go to [facility] would be after the weekend -ID following -Repeat blood culture from 07/30 negative growth to date -Continue with IV fluids Continue to wean oxygen Surgery note reviewed, no acute interventions recommended at the moment Pancytopenia with neutropenia, anemia, and now thrombocytopenia Bipolar disorder -Status post 2 unit of PRBCs -Oncology started patient on filgrastim Likely bone marrow biopsy early this week Concern for hematologic malignancy Patient also has prior ruptured breast implant with significant calcification, low possibility of breast implant associated lymphoma however it very rarely leads to pancytopenia. -Trileptal decreased to 100 3 times daily, due to potential risk for pancytopenia, on Seroquel for 400 daily which is also a reduced dose Partial large bowl obstruction -Status post NG tube Patient may need small bowel follow-through, surgery recommending no acute interventions at the moment Acute kidney injury, resolved Hyponatremia. improved Hypokalemia, resolved -Nephrology recommendations: Patient received IV Lasix 40 mg once Continue monitor BMP Paroxysmal atrial fibrillation with rapid ventricular response Cardiomyopathy with ejection fraction 40 to 45% -Cardiology note reviewed, recommending continuing amiodarone ip -Anticoagulation currently on hold due to platelets less than 50 -Echocardiogram obtained 07/29 which showed ejection fraction of 40 to 45% - not a candidate for GDMT due to low blood pressures Hx of Pulmonary embolism - hold AC due to plt less than 50 Hypomagnesemia, resolved Endplate fracture L3, possible Schmorl's nodeMRI pending Hyperkalemia, resolved Anion gap metabolic acidosis, resolved Imaging: CT abdomen and pelvis reviewed: Possible partial large bowel obstruction likely secondary to acute sigmoid wall inflammation from IBD or diverticulitis. Neoplasm not completely excluded. 2.8 cm mass in the right superficial inguinal region suspicious for reactive lymphadenopathy. Data Review: WBC 0.5, hemoglobin 7.5, platelet 48, sodium 135, potassium 3.6, creatinine 0.87, magnesium 2.7 chest x-ray independently interpreted, shows interstitial opacities DVT prophylaxis: SCDs Anticipated discharge date: Pending Clinical Course Anticipated discharge place: Pending Clinical Course Objective - Vital Signs Vital signs: Vital Signs Temp 98.5 F 08/03/23 08:00 Pulse 96 08/03/23 10:30 Resp 23 08/03/23 10:30 BP 86/52 08/03/23 10:30 Pulse Ox 94 L 08/03/23 10:30 FiO2 Intake & Output 08/02/23 08/03/23 08/03/23 18:59 06:59 18:59 Intake Total 2299.998 1556.394 400 Output Total 1770 730 290 Balance 529.998 826.394 110 Weight 77.5 kg Intake: IV 1790 1320 400 Cefepime 2 gm In Sodium 200 100 100 Chloride 0.9% 100 ml @ 25 mls/hr IVPB Q12HR [facility] Rx #:[id number] Invasive Line 1 10 Invasive Line 3 10 Invasive Line 5 10 10 Invasive Line 6 30 10 Invasive Line 7 30 Lactated Ringers 1,000 ml 1200 1000 200 @ 100 mls/hr IV .Q10H [facility] Rx#:[id number] Potassium Chloride 20 meq 100 In Water For Injection 1 100ml.bag @ 50 mls/hr IVPB Q2H [facility] Rx#: [id number] Sodium Ferric Gluconat- 100 Sucrose 125 mg In Sodium Chloride 0.9% 100 ml @ 100 mls/hr IVPB DAILY [facility] Rx#:[id number] metroNIDAZOLE-NS PMX 500 200 100 100 mg In Saline 1 100ml.bag @ 100 mls/hr IVPB Q8HR [facility] Rx#:[id number] Intake, IV Titration 199.998 236.394 Amount Amiodarone 360 mg In 199.998 Dextrose 5% in Water 200 ml @ 1 MG/MIN 33.333 mls/ hr IV .Q6H [facility] Rx#: [id number] Amiodarone 450 mg In 236.394 Dextrose 5% in Water 250 ml @ 0.5 MG/MIN 16.667 mls/hr IV .Q15H [facility] Rx#: [id number] Oral 0 Tube Feeding 0 Blood Product 310 0 Rc As-1 Unit 310 [id number] Other 0 Output: Gastric Drainage 1150 150 Urine 620 730 140 Other: Voiding Method Indwelling Catheter Indwelling Catheter Indwelling Catheter # Bowel Movements 0 0 0 - Labs CBC & Chem 7: 08/03/23 08:54 08/03/23 03:00 Labs: Abnormal Lab Results - Last 24 Hours (Table) 07/31/23 08/02/23 08/02/23 Range/Units 00:02 16:17 17:01 WBC 0.4 L* (3.8-10.6) k/uL RBC 2.33 L (3.80-5.40) m/uL Hgb 8.0 L (11.4-16.0) gm/dL Hct 24.8 L (34.0-46.0) % MCV 106.3 H (80.0-100.0) fL RDW 19.3 H (11.5-15.5) % Plt Count 49 L (150-450) k/uL Macrocytosis Marked A PT (10.0-12.5) sec INR (<1.2) APTT (22.0-30.0) sec Sodium (137-145) mmol/L Potassium (3.5-5.1) mmol/L BUN (7-17) mg/dL Glucose (74-99) mg/dL POC Glucose (mg/dL) 124 H (70-110) mg/dL Magnesium (1.6-2.3) mg/dL Albumin (3.5-5.0) g/dL IgG (700.0-1600.0) mg/dL IgA (60.0-350.0) mg/dL IgM (40.0-280.0) mg/dL Crossmatch See Detail 08/02/23 08/02/23 08/02/23 Range/Units 17:01 17:01 17:01 WBC (3.8-10.6) k/uL RBC (3.80-5.40) m/uL Hgb (11.4-16.0) gm/dL Hct (34.0-46.0) % MCV (80.0-100.0) fL RDW (11.5-15.5) % Plt Count (150-450) k/uL Macrocytosis PT 16.4 H (10.0-12.5) sec INR 1.6 H (<1.2) APTT 42.1 H (22.0-30.0) sec Sodium 134 L (137-145) mmol/L Potassium 3.4 L (3.5-5.1) mmol/L BUN 19 H (7-17) mg/dL Glucose 117 H (74-99) mg/dL POC Glucose (mg/dL) (70-110) mg/dL Magnesium 1.3 L (1.6-2.3) mg/dL Albumin 2.3 L (3.5-5.0) g/dL IgG <300.0 L (700.0-1600.0) mg/dL IgA 3389.0 H (60.0-350.0) mg/dL IgM <35.0 L (40.0-280.0) mg/dL Crossmatch 08/03/23 08/03/23 08/03/23 Range/Units 00:29 03:00 05:00 WBC (3.8-10.6) k/uL RBC (3.80-5.40) m/uL Hgb (11.4-16.0) gm/dL Hct (34.0-46.0) % MCV (80.0-100.0) fL RDW (11.5-15.5) % Plt Count (150-450) k/uL Macrocytosis PT 15.7 H (10.0-12.5) sec INR 1.5 H (<1.2) APTT 47.1 H (22.0-30.0) sec Sodium 135 L (137-145) mmol/L Potassium (3.5-5.1) mmol/L BUN (7-17) mg/dL Glucose 146 H (74-99) mg/dL POC Glucose (mg/dL) 145 H (70-110) mg/dL Magnesium 2.7 H (1.6-2.3) mg/dL Albumin (3.5-5.0) g/dL IgG (700.0-1600.0) mg/dL IgA (60.0-350.0) mg/dL IgM (40.0-280.0) mg/dL Crossmatch 08/03/23 08/03/23 Range/Units 06:44 08:54 WBC 0.5 L* (3.8-10.6) k/uL RBC 2.21 L (3.80-5.40) m/uL Hgb 7.5 L (11.4-16.0) gm/dL Hct 22.9 L (34.0-46.0) % MCV 103.7 H (80.0-100.0) fL RDW 19.4 H (11.5-15.5) % Plt Count 48 L (150-450) k/uL Macrocytosis Marked A PT (10.0-12.5) sec INR (<1.2) APTT (22.0-30.0) sec Sodium (137-145) mmol/L Potassium (3.5-5.1) mmol/L BUN (7-17) mg/dL Glucose (74-99) mg/dL POC Glucose (mg/dL) 133 H (70-110) mg/dL Magnesium (1.6-2.3) mg/dL Albumin (3.5-5.0) g/dL IgG (700.0-1600.0) mg/dL IgA (60.0-350.0) mg/dL IgM (40.0-280.0) mg/dL Crossmatch Microbiology - Last 24 Hours (Table) 07/31/23 04:12 Blood Culture - Preliminary Blood 07/31/23 18:00 Urine Culture - Final Urine,Catheterized
--- NOTE | 2023-08-03 11:25 | P.PN ---
Subjective Progress Note Date: 08/03/23 63-year-old female patient admitted to the intensive care unit with altered mentation, hypotension and acute kidney injury. The patient presented to the emergency department complaining of some back pain. She was altered, she was encephalopathic and weak. She was found to be hypotensive. She was given several fluid boluses and she remained hypotensive and the patient was started on pressors and currently she is on norepinephrine running at 0.1 mcg/kg/min. She was given a total of 4.5 L and currently 2 and a bicarb infusion running at 125 cc an hour. She is producing urine output. Noted that she had an acute kidney injury and the creatinine was elevated at 5.1 with a BUN of 68. Serum bicarb was at 8 with a potassium level of 5.6 and a sodium levels at 129. She probably has chronic Myelodysplasia as the patient's white cell count was low at 1 with a hemoglobin 9.1 and a platelet count of 153./The patient has pancytopenia. No respiratory difficulties. No cough or sputum production. Chest x-ray showed no evidence of any pneumonia. CT angiogram of the chest showed no evidence of any pulmonary embolism. CAT scan of the abdomen and pelvis was also done that showed no acute abnormalities. There was a small pericardial effusion. Nonspecific right inguinal lymphadenopathy was noted. The patient is having an echocardiogram this morning. The blood gas showed a pH of 7.39 with a pCO2 of 27 and pO2 of 81 minutes with an FiO2 of 28%. Creatinine is on the decline and currently is down to 3.37 with a BUN of 55 and his sodium level is at 133. Free cortisol level is at 33.9. Free T4 is at 0.6 which is essentially low. LDH is not elevated. The viral panel including influenza, COVID-19 and RSV were negative. Coagulation profile was within normal. D-dimer was at 3.98. CT angiogram was negative for any pulmonary embolism. CAT scan of the brain was also done in the emergency department along with a CT scan of the cervical spine showed no evidence of any cervical fracture and no evidence of any intracranial abnormalities. Mild spondylosis at the level of C6-C7. No focal neurological deficit. She is able to answer simple commands upon repeated stimulation. CPK was at 33. Troponins were negative. She has previous history of pulm embolism maintained on anticoagulation with Eliquis and this was placed on hold and the patient was started on IV heparin. She was also started empirically on a combination of Zosyn and vancomycin pending further cultures. 07/31/2023, the patient is being seen for a follow-up. Awake and alert and communicating. Continues to have back pain and MRI of the lumbar spine has been ordered. Meanwhile, the patient remains on IV fluids. The patient is on a bicarb infusion at the rate of 125 cc an hour. She also received a unit of packed RBC regarding a drop in hemoglobin down to 6.8 and the follow-up hemoglobin is currently at 8. She remains neutropenic with a white cell count of 0.8 and the patient is also septic and the blood cultures is positive for Enterobacter species. The patient is currently on IV cefepime. She remains on no pressors at this point. She did have an episode of atrial fibrillation yesterday. She was briefly placed on Cardizem at 10 mg an hour and she was given a bolus. She is back into normal sinus rhythm. She is maintained currently on amiodarone at 1 mg/min. In terms of her renal function, the patient's creatinine is improving. BUN is down to 35 with a creatinine of 1.55 and a sodium levels at 133 with a potassium level of 2.5. Oxygenation is stable and the patient is currently on 2 L of O2 nasal cannula with a pulse ox of 95%. Platelet count is also low at 67. A workup regarding this pancytopenia has been initiated. It is also still pending for now. Hepatitis profile has been negative. Iron levels were low and the patient was started on IV iron in addition. 08/01/2023, patient is being seen for a follow-up. The patient is awake and alert. She is complaining of abdominal pain abdominal distention that has developed over the past 24 hours. Noted the patient is neutropenic with a white cell count of 0.6 and the hemoglobin today is at 7.6. Platelet count is at 45. She had gram-negative sepsis and the patient remains on IV cefepime. She is off pressors. Cardiac rhythm is sinus. Function is improved and the follow-up blood work from today shows a BUN of 22 with a creatinine of 0.8 and a sodium noted at 134 and a potassium level is at 4.3. Lactic acid level is at 1.5. The patient is being seen by hematology oncology. This is regarding her pancytope ivone. The total serum protein was 6.4. Her free kappa light chains were elevated at 35.2. RIP and rheumatoid factor were negative. MRI of the back is also pending for now. No confusion. No altered mentation. She is awake and alert and communicating. 08/02/2023, patient's condition is essentially unchanged. Probably slightly worse in terms of her abdominal distention. No flatus. No bowel movement activity. No nausea or vomiting. No reported fever or chills. CAT scan of the abdomen was done yesterday minutes was consistent with markedly dilated air and fluid filled loops of the colon. There was a long segment of the sigmoid colon that was thickened and the patient also had dilated bowel in the proximal segments. There was moderate fluid in the cul-de-sac. No intraperitoneal air. Scattered groundglass pulmonary infiltrates in the lung base bilaterally. As such, there was evidence of acute sigmoid wall inflammation consistent with colitis. No diverticulitis. No neoplasm. The patient continues to be pancytopenic. The white cell count today is at 0.5. Hemoglobin is at 6.7 and a platelet count of 45. Limited input from hematology oncology. No immediate plans for biopsy of the bone marrow. Suspicious findings for myeloma. Repeat blood cultures have been negative. The patient is going to receive unit of packed RBC today. BUN is at 21 with a creatinine of 0.8 and a sodium levels at 133. The cardiac rhythm is sinus. The patient remains on a combination of c efepime and vancomycin. The electrolytes are all within normal limits. Hemodynamically stable and the patient is currently on 5 L of oxygen by nasal cannula with a pulse ox of 95%. 08/03/2023, the patient is being seen for a follow-up. The patient essentially unchanged compared to yesterday. Continues to have abdominal pain which is rather diffuse consistent with colitis given this is neutropenic colitis. The patient is hemodynamically stable on no pressors. NG tube is in place. Total amount of output was 1.1 L over the past 24 hours and the patient remains on amiodarone drip at 0.5 mg/min and the cardiac rhythm is sinus. Fluid balance has been +1.3 L and the patient is on lactated Ringer at rate of 100 cc an hour. She is on oxygen at 5 L/min nasal cannula. White cell count is 0.5, hemoglobin is at 7.5 and a platelet count is 48. BUN is at 17 with a creatinine of 0.8 and a sodium levels at 135. She is lethargic. She is weak. She is quite debilitated. Objective - Vital Signs Vital signs: Vital Signs Temp 98.3 F 08/03/23 04:00 Pulse 96 08/03/23 07:00 Resp 20 08/03/23 07:00 BP 96/56 08/03/23 07:00 Pulse Ox 92 L 08/03/23 07:00 FiO2 Intake & Output 08/02/23 08/03/23 08/03/23 18:59 06:59 18:59 Intake Total 2299.998 1556.394 100 Output Total 1770 730 75 Balance 529.998 826.394 25 Weight 77.5 kg Intake: IV 1790 1320 100 Cefepime 2 gm In Sodium 200 100 Chloride 0.9% 100 ml @ 25 mls/hr IVPB Q12HR [facility] Rx #:[id number] Invasive Line 1 10 Invasive Line 3 10 Invasive Line 5 10 10 Invasive Line 6 30 10 Invasive Line 7 30 Lactated Ringers 1,000 ml 1200 1000 100 @ 100 mls/hr IV .Q10H [facility] Rx#:[id number] Potassium Chloride 20 meq 100 In Water For Injection 1 100ml.bag @ 50 mls/hr IVPB Q2H [facility] Rx#: [id number] Sodium Ferric Gluconat- 100 Sucrose 125 mg In Sodium Chloride 0.9% 100 ml @ 100 mls/hr IVPB DAILY [facility] Rx#:[id number] metroNIDAZOLE-NS PMX 500 200 100 mg In Saline 1 100ml.bag @ 100 mls/hr IVPB Q8HR [facility] Rx#:[id number] Intake, IV Titration 199.998 236.394 Amount Amiodarone 360 mg In 199.998 Dextrose 5% in Water 200 ml @ 1 MG/MIN 33.333 mls/ hr IV .Q6H [facility] Rx#: [id number] Amiodarone 450 mg In 236.394 Dextrose 5% in Water 250 ml @ 0.5 MG/MIN 16.667 mls/hr IV .Q15H [facility] Rx#: [id number] Blood Product 310 Rc As-1 Unit 310 [id number] Output: Gastric Drainage 1150 Urine 620 730 75 Other: Voiding Method Indwelling Catheter Indwelling Catheter # Bowel Movements 0 0 - Exam GENERAL EXAM: Alert, 63-year-old white female, calm and comfortable, no agitation the patient has no signs of any respiratory distress. The patient is moving all 4 extremities. Is currently on 5 L of oxygen by nasal cannula HEAD: Normocephalic and atraumatic EYES: Normal reaction of pupils, equal size. NOSE: Clear with pink turbinates. THROAT: No erythema or exudates. NECK: No masses, no JVD. CHEST: No chest wall deformity. LUNGS: Equal air entry with no crackles, wheeze, rhonchi or dullness. On room air. No conversational dyspnea or accessory muscle use.. CVS: S1 and S2 normal with no audible murmur, regular rhythm. No extra heart sounds ABDOMEN: No hepatosplenomegaly, there is evidence of abdominal distention and diffuse abdominal tenderness on today's examination. Organs cannot be accurately palpated. No guarding. Abdomen remains soft. SPINE: No scoliosis or deformity SKIN: No rashes CENTRAL NERVOUS SYSTEM: No focal deficits, tone is normal in all 4 extremities. The patient is encephalopathic. EXTREMITIES: There is no peripheral edema, clubbing, or cyanosis. Peripheral pulses are intact. - Labs CBC & Chem 7: 08/03/23 08:54 08/03/23 03:00 Labs: Abnormal Lab Results - Last 24 Hours (Table) 07/31/23 08/02/23 08/02/23 Range/Units 00:02 16:17 17:01 WBC 0.4 L* (3.8-10.6) k/uL RBC 2.33 L (3.80-5.40) m/uL Hgb 8.0 L (11.4-16.0) gm/dL Hct 24.8 L (34.0-46.0) % MCV 106.3 H (80.0-100.0) fL RDW 19.3 H (11.5-15.5) % Plt Count 49 L (150-450) k/uL Macrocytosis Marked A PT (10.0-12.5) sec INR (<1.2) APTT (22.0-30.0) sec Sodium (137-145) mmol/L Potassium (3.5-5.1) mmol/L BUN (7-17) mg/dL Glucose (74-99) mg/dL POC Glucose (mg/dL) 124 H (70-110) mg/dL Magnesium (1.6-2.3) mg/dL Albumin (3.5-5.0) g/dL IgG (700.0-1600.0) mg/dL IgA (60.0-350.0) mg/dL IgM (40.0-280.0) mg/dL Crossmatch See Detail 08/02/23 08/02/23 08/02/23 Range/Units 17:01 17:01 17:01 WBC (3.8-10.6) k/uL RBC (3.80-5.40) m/uL Hgb (11.4-16.0) gm/dL Hct (34.0-46.0) % MCV (80.0-100.0) fL RDW (11.5-15.5) % Plt Count (150-450) k/uL Macrocytosis PT 16.4 H (10.0-12.5) sec INR 1.6 H (<1.2) APTT 42.1 H (22.0-30.0) sec Sodium 134 L (137-145) mmol/L Potassium 3.4 L (3.5-5.1) mmol/L BUN 19 H (7-17) mg/dL Glucose 117 H (74-99) mg/dL POC Glucose (mg/dL) (70-110) mg/dL Magnesium 1.3 L (1.6-2.3) mg/dL Albumin 2.3 L (3.5-5.0) g/dL IgG <300.0 L (700.0-1600.0) mg/dL IgA 3389.0 H (60.0-350.0) mg/dL IgM <35.0 L (40.0-280.0) mg/dL Crossmatch 08/03/23 08/03/23 08/03/23 Range/Units 00:29 03:00 05:00 WBC (3.8-10.6) k/uL RBC (3.80-5.40) m/uL Hgb (11.4-16.0) gm/dL Hct (34.0-46.0) % MCV (80.0-100.0) fL RDW (11.5-15.5) % Plt Count (150-450) k/uL Macrocytosis PT 15.7 H (10.0-12.5) sec INR 1.5 H (<1.2) APTT 47.1 H (22.0-30.0) sec Sodium 135 L (137-145) mmol/L Potassium (3.5-5.1) mmol/L BUN (7-17) mg/dL Glucose 146 H (74-99) mg/dL POC Glucose (mg/dL) 145 H (70-110) mg/dL Magnesium 2.7 H (1.6-2.3) mg/dL Albumin (3.5-5.0) g/dL IgG (700.0-1600.0) mg/dL IgA (60.0-350.0) mg/dL IgM (40.0-280.0) mg/dL Crossmatch 08/03/23 Range/Units 06:44 WBC (3.8-10.6) k/uL RBC (3.80-5.40) m/uL Hgb (11.4-16.0) gm/dL Hct (34.0-46.0) % MCV (80.0-100.0) fL RDW (11.5-15.5) % Plt Count (150-450) k/uL Macrocytosis PT (10.0-12.5) sec INR (<1.2) APTT (22.0-30.0) sec Sodium (137-145) mmol/L Potassium (3.5-5.1) mmol/L BUN (7-17) mg/dL Glucose (74-99) mg/dL POC Glucose (mg/dL) 133 H (70-110) mg/dL Magnesium (1.6-2.3) mg/dL Albumin (3.5-5.0) g/dL IgG (700.0-1600.0) mg/dL IgA (60.0-350.0) mg/dL IgM (40.0-280.0) mg/dL Crossmatch Microbiology - Last 24 Hours (Table) 07/31/23 04:12 Blood Culture - Preliminary Blood 07/31/23 18:00 Urine Culture - Final Urine,Catheterized Assessment and Plan Plan: Neutropenic sepsis. The patient has gram-negative bacillus in the blood and the cultures are indicating Enterobacter species. The patient is currently on IV cefepime and Flagyl and the patient is currently on no pressors. Repeat cultures are negative for now. Abdominal distention with signs of neutropenic colitis/sigmoid colitis with bowel wall thickening. No evidence of any free air within the abdomen. NG tube is in place. The patient continues to have diffuse abdominal distention. General surgery is on the case. Pancytopenia, under investigation, awaiting further input from hematology oncology. No plans for bone marrow biopsy at this point in time. I think that the patient's sepsis was secondary to her pancytopenia. This needs to be obviously more investigated. Suspect myeloma. The white cell count remains low and absolute neutrophil count is still low Acute encephalopathy with altered mentation. This is most likely metabolic encephalopathy. CAT scan of the brain was negative. CT scan of the cervical spine showed no acute fracture. CAT scan of the chest abdomen and pelvis was essentially nonrevealing. Clinically improving and the mental status is back to his baseline Acute hypotension under investigation, secondary to septic shock, recovered Acute kidney injury, nonoliguric creatinine has normalized Severe metabolic anion gap acidosis, improved Leukopenia, as part of pancytopenia, rule out underlying myelodysplasia, hematologic profile is in progress. The patient has elevated kappa light chains. Consider bone marrow biopsy. Anemia, no obvious acute blood loss, the patient is iron deficient based on the blood wo Multiple electrolyte abnormalities including hyperkalemia and hyponatremia, improved Mild transaminitis Mild systolic heart failure with an ejection fraction of 40 to 45% Small pericardial effusion noted on CT scan of the chest, incidental finding, Echocardiogram showed an ejection fraction of 40 to 45%. Small pericardial effusion. Otherwise no other acute abnormalities noted. History of pulmonary embolism, anticoagulated on Eliquis. Paroxysmal atrial fibrillation currently on amiodarone drip at 1 mg/min. Lower back pain, , awaiting MRI of the lumbar spine. History of bipolar/depression Plan: Titrate oxygen flow to maintain saturation above 90%, currently on 5 L Continue IV cefepime and add Flagyl regarding the possibility of abdominal sepsis/colitis/neutropenic colitis Lactic acid level is not elevated CAT scan of the abdomen and pelvis was completed on 2 separate occasions and the findings are consistent with colitis Continue lactated Ringer and drop infusion to 40 cc an hour and give the patient a dose of Lasix 40 mg IV push. Monitor electrolytes and renal function Keep Crockett catheter in place nephrology consultation appreciated Hematology consultation is appreciatedine, elevated light chains, in my opinion, the patient is in need for a bone marrow biopsy. Condition is critical. The patient has complications of pancytopenia. The patient is going to receive unit of packed RBC today. However, based on the limited progress from the hematologic standpoint, I think it is reasonable to transfer this patient to a tertiary care center where further workup can be done regarding her pancytopenia including anemia and bone marrow biopsy/aspiration and interpretation of the findings in addition to close monitoring of her abdominal situation which includes ongoing colitis/neutropenic colitis. She is at high risk of having bowel perforation secondary to colitis and neutropenia and thrombocytopenia. General surgery is on board. Try to transfer to another facility including [facility]. The patient was declined. Patient will be monitored in the intensive care unit. Condition is critical. Discussed the case with the medical team and I believe that the patient is better served at a tertiary care center and I am going to make recommendations for her to be moved to a tertiary care center if possible. Will try to make this transfer. We did not receive adequate cooperation from other facilities. Will continue to follow we will continue her treatment here in our hospital. Critical care evaluation that was done more than 30 minutes. Time with Patient: Greater than 30
[2023-08-03 11:47] LABS: Glucose,Whole Blood 129 mg/dL (70-110)
[2023-08-03] MEDS: AMIODARONE 450 MG in DEXTROSE 5% IN WATER 250 ML IV SCH (15:47)
--- NOTE | 2023-08-03 16:07 | P.PN ---
Subjective Progress Note Date: 08/03/23 Principal diagnosis: Reason for follow-up visit Enterobacter bacteremia Patient is a 63-year-old female with a past medical history significant for reflux PE anxiety bipolar depression patient was brought into the hospital for 1 day history of severe low back pain, patient was noted to be febrile did have elevated lactic acid abnormality of likely on the CT abdominal pelvis and a positive blood culture concerning for possible discitis osteomyelitis. On today's evaluation that is 08/03/2023, patient has been afebrile, patient is breathing comfortably and is currently on 6 L nasal cannula oxygen, patient denies having any significant cough no chest pain, patient denies nausea vomiting or diarrhea has been complaining of some abdominal pain no worsening. Patient white count 0.5, creatinine 0.87 blood culture repeat has been negative so far Objective - Vital Signs Vital signs: Vital Signs Temp 98.5 F 08/03/23 16:00 Pulse 93 08/03/23 16:00 Resp 21 08/03/23 16:00 BP 116/70 08/03/23 16:00 Pulse Ox 92 L 08/03/23 16:00 FiO2 Intake & Output 08/02/23 08/03/23 08/03/23 18:59 06:59 18:59 Intake Total 2299.998 9632.146 6618.225 Output Total 8430 460 3948 Balance 529.998 826.394 -1682.775 Weight 77.5 kg Intake: IV 1790 1320 850 Cefepime 2 gm In Sodium 200 100 100 Chloride 0.9% 100 ml @ 25 mls/hr IVPB Q12HR [facility] Rx #:[id number] Invasive Line 1 10 Invasive Line 3 10 Invasive Line 5 10 10 Invasive Line 6 30 10 Invasive Line 7 30 Lactated Ringers 1,000 ml 1200 1000 200 @ 100 mls/hr IV .Q10H [facility] Rx#:[id number] Lactated Ringers 1,000 ml 350 @ 50 mls/hr IV .Q20H [facility] Rx#:[id number] Potassium Chloride 20 meq 100 In Water For Injection 1 100ml.bag @ 50 mls/hr IVPB Q2H [facility] Rx#: [id number] Sodium Ferric Gluconat- 100 Sucrose 125 mg In Sodium Chloride 0.9% 100 ml @ 100 mls/hr IVPB DAILY [facility] Rx#:[id number] metroNIDAZOLE-NS PMX 500 200 100 200 mg In Saline 1 100ml.bag @ 100 mls/hr IVPB Q8HR [facility] Rx#:[id number] Intake, IV Titration 199.998 236.394 157.225 Amount Amiodarone 360 mg In 199.998 Dextrose 5% in Water 200 ml @ 1 MG/MIN 33.333 mls/ hr IV .Q6H [facility] Rx#: [id number] Amiodarone 450 mg In 236.394 157.225 Dextrose 5% in Water 250 ml @ 0.5 MG/MIN 16.667 mls/hr IV .Q15H [facility] Rx#: [id number] Oral 0 Tube Feeding 0 Blood Product 310 0 Rc As-1 Unit 310 [id number] Other 0 Output: Gastric Drainage 1150 500 Urine [phone] Other: Voiding Method Indwelling Catheter Indwelling Catheter Indwelling Catheter # Bowel Movements 0 0 0 - Exam GENERAL DESCRIPTION: Middle-aged female lying in bed in no distress RESPIRATORY SYSTEM: Unlabored breathing , decreased breath sounds at bases HEART: S1 S2 regular rate and rhythm , ABDOMEN: Soft , no tenderness EXTREMITIES: No edema feet - Labs CBC & Chem 7: 08/03/23 08:54 08/03/23 11:58 Labs: Abnormal Lab Results - Last 24 Hours (Table) 08/02/23 08/02/23 08/02/23 Range/Units 16:17 17:01 17:01 WBC 0.4 L* (3.8-10.6) k/uL RBC 2.33 L (3.80-5.40) m/uL Hgb 8.0 L (11.4-16.0) gm/dL Hct 24.8 L (34.0-46.0) % MCV 106.3 H (80.0-100.0) fL RDW 19.3 H (11.5-15.5) % Plt Count 49 L (150-450) k/uL Macrocytosis Marked A PT (10.0-12.5) sec INR (<1.2) APTT (22.0-30.0) sec Sodium 134 L (137-145) mmol/L Potassium 3.4 L (3.5-5.1) mmol/L BUN 19 H (7-17) mg/dL Glucose 117 H (74-99) mg/dL POC Glucose (mg/dL) 124 H (70-110) mg/dL Magnesium 1.3 L (1.6-2.3) mg/dL Albumin 2.3 L (3.5-5.0) g/dL IgG (700.0-1600.0) mg/dL IgA (60.0-350.0) mg/dL IgM (40.0-280.0) mg/dL 08/02/23 08/02/23 08/03/23 Range/Units 17:01 17:01 00:29 WBC (3.8-10.6) k/uL RBC (3.80-5.40) m/uL Hgb (11.4-16.0) gm/dL Hct (34.0-46.0) % MCV (80.0-100.0) fL RDW (11.5-15.5) % Plt Count (150-450) k/uL Macrocytosis PT 16.4 H (10.0-12.5) sec INR 1.6 H (<1.2) APTT 42.1 H (22.0-30.0) sec Sodium (137-145) mmol/L Potassium (3.5-5.1) mmol/L BUN (7-17) mg/dL Glucose (74-99) mg/dL POC Glucose (mg/dL) 145 H (70-110) mg/dL Magnesium (1.6-2.3) mg/dL Albumin (3.5-5.0) g/dL IgG <300.0 L (700.0-1600.0) mg/dL IgA 3389.0 H (60.0-350.0) mg/dL IgM <35.0 L (40.0-280.0) mg/dL 08/03/23 08/03/23 08/03/23 Range/Units 03:00 05:00 06:44 WBC (3.8-10.6) k/uL RBC (3.80-5.40) m/uL Hgb (11.4-16.0) gm/dL Hct (34.0-46.0) % MCV (80.0-100.0) fL RDW (11.5-15.5) % Plt Count (150-450) k/uL Macrocytosis PT 15.7 H (10.0-12.5) sec INR 1.5 H (<1.2) APTT 47.1 H (22.0-30.0) sec Sodium 135 L (137-145) mmol/L Potassium (3.5-5.1) mmol/L BUN (7-17) mg/dL Glucose 146 H (74-99) mg/dL POC Glucose (mg/dL) 133 H (70-110) mg/dL Magnesium 2.7 H (1.6-2.3) mg/dL Albumin (3.5-5.0) g/dL IgG (700.0-1600.0) mg/dL IgA (60.0-350.0) mg/dL IgM (40.0-280.0) mg/dL 08/03/23 08/03/23 Range/Units 08:54 11:46 WBC 0.5 L* (3.8-10.6) k/uL RBC 2.21 L (3.80-5.40) m/uL Hgb 7.5 L (11.4-16.0) gm/dL Hct 22.9 L (34.0-46.0) % MCV 103.7 H (80.0-100.0) fL RDW 19.4 H (11.5-15.5) % Plt Count 48 L (150-450) k/uL Macrocytosis Marked A PT (10.0-12.5) sec INR (<1.2) APTT (22.0-30.0) sec Sodium (137-145) mmol/L Potassium (3.5-5.1) mmol/L BUN (7-17) mg/dL Glucose (74-99) mg/dL POC Glucose (mg/dL) 129 H (70-110) mg/dL Magnesium (1.6-2.3) mg/dL Albumin (3.5-5.0) g/dL IgG (700.0-1600.0) mg/dL IgA (60.0-350.0) mg/dL IgM (40.0-280.0) mg/dL Microbiology - Last 24 Hours (Table) 07/31/23 04:12 Blood Culture - Preliminary Blood Assessment and Plan (1) Gram-negative bacteremia Current Visit: Yes Status: Acute Priority: High Code(s): R78.81 - BACTEREMIA SNOMED Code(s): 717350660296 Plan: 1patient presented to hospital with sepsis in this patient who did have a fever tachycardia hypotension significant leukopenia now with evidence of Enterobacter bacteremia in this patient with significant lower back pain, some abnormality of the L3 was seen on the CT abdominal pelvis concern for possible discitis or osteomyelitis as no other focus of infection with clinically as well as on the basis of investigation done so far 2-patient with a renal insufficiency high risk of nephrotoxicity: 3-patient repeat CT abdominal pelvis did show significant change in the sigmoid colon could be the source of this bacteremia 4-patient repeat blood culture has been negative so far 5- patient currently being treated with cefepime and Flagyl and continue with supportive care Dictation was produced using [employer] dictation software. please excuse any grammatical, word or spelling errors. Time with Patient: Less than 30
--- NOTE | 2023-08-03 16:28 | P.PN ---
Subjective Progress Note Date: 08/03/23 Patient seen in ICU at todays visit. Blood pressure soft, in low 90s. Pt more alert today than yesterday. Reports persisting but improved abd pain. No reported episodes of acute bleeding. NG outpt brownish in color. WBC 0.5, Hemoglobin 7.5 s/p unit of PRBCs. Platelets 48,000. Continues on IV abx Objective - Vital Signs Vital signs: Vital Signs Temp 98.5 F 08/03/23 08:00 Pulse 96 08/03/23 10:30 Resp 23 08/03/23 10:30 BP 86/52 08/03/23 10:30 Pulse Ox 94 L 08/03/23 10:30 FiO2 Intake & Output 08/02/23 08/03/23 08/03/23 18:59 06:59 18:59 Intake Total 2299.998 1556.394 400 Output Total 1770 730 290 Balance 529.998 826.394 110 Weight 77.5 kg Intake: IV 1790 1320 400 Cefepime 2 gm In Sodium 200 100 100 Chloride 0.9% 100 ml @ 25 mls/hr IVPB Q12HR COUNTS INCLUDE 234 BEDS AT THE [facility] Rx #:[id number] Invasive Line 1 10 Invasive Line 3 10 Invasive Line 5 10 10 Invasive Line 6 30 10 Invasive Line 7 30 Lactated Ringers 1,000 ml 1200 1000 200 @ 100 mls/hr IV .Q10H COUNTS INCLUDE 234 BEDS AT THE [facility] Rx#:[id number] Potassium Chloride 20 meq 100 In Water For Injection 1 100ml.bag @ 50 mls/hr IVPB Q2H [facility] Rx#: [id number] Sodium Ferric Gluconat- 100 Sucrose 125 mg In Sodium Chloride 0.9% 100 ml @ 100 mls/hr IVPB DAILY COUNTS INCLUDE 234 BEDS AT THE [facility] Rx#:[id number] metroNIDAZOLE-NS PMX 500 200 100 100 mg In Saline 1 100ml.bag @ 100 mls/hr IVPB Q8HR COUNTS INCLUDE 234 BEDS AT THE [facility] Rx#:[id number] Intake, IV Titration 199.998 236.394 Amount Amiodarone 360 mg In 199.998 Dextrose 5% in Water 200 ml @ 1 MG/MIN 33.333 mls/ hr IV .Q6H ONE Rx#: [id number] Amiodarone 450 mg In 236.394 Dextrose 5% in Water 250 ml @ 0.5 MG/MIN 16.667 mls/hr IV .Q15H [facility] Rx#: [id number] Oral 0 Tube Feeding 0 Blood Product 310 0 Rc As-1 Unit 310 [id number] Other 0 Output: Gastric Drainage 1150 150 Urine 620 730 140 Other: Voiding Method Indwelling Catheter Indwelling Catheter Indwelling Catheter # Bowel Movements 0 0 0 - Constitutional General appearance: Present: average body habitus, no acute distress - EENT Eyes: Present: anicteric sclerae, EOMI ENT: Present: hearing grossly normal - Respiratory Details: breathing is even and unlabored - Cardiovascular Rhythm: regular - Gastrointestinal Gastrointestinal Comment(s): tenderness noted in upper abd > lower quadrants, tenderness has improved General gastrointestinal: Present: tenderness - Integumentary Integumentary: Present: pale. Absent: cyanotic - Neurologic Neurologic Comment(s): lethargic - Musculoskeletal Musculoskeletal: Present: generalized weakness - Psychiatric Psychiatric: Present: A&O x's 3 - Labs CBC & Chem 7: 08/03/23 08:54 08/03/23 11:58 Labs: Abnormal Lab Results - Last 24 Hours (Table) 07/31/23 08/02/23 08/02/23 Range/Units 00:02 16:17 17:01 WBC 0.4 L* (3.8-10.6) k/uL RBC 2.33 L (3.80-5.40) m/uL Hgb 8.0 L (11.4-16.0) gm/dL Hct 24.8 L (34.0-46.0) % MCV 106.3 H (80.0-100.0) fL RDW 19.3 H (11.5-15.5) % Plt Count 49 L (150-450) k/uL Macrocytosis Marked A PT (10.0-12.5) sec INR (<1.2) APTT (22.0-30.0) sec Sodium (137-145) mmol/L Potassium (3.5-5.1) mmol/L BUN (7-17) mg/dL Glucose (74-99) mg/dL POC Glucose (mg/dL) 124 H (70-110) mg/dL Magnesium (1.6-2.3) mg/dL Albumin (3.5-5.0) g/dL IgG (700.0-1600.0) mg/dL IgA (60.0-350.0) mg/dL IgM (40.0-280.0) mg/dL Crossmatch See Detail 08/02/23 08/02/23 08/02/23 Range/Units 17:01 17:01 17:01 WBC (3.8-10.6) k/uL RBC (3.80-5.40) m/uL Hgb (11.4-16.0) gm/dL Hct (34.0-46.0) % MCV (80.0-100.0) fL RDW (11.5-15.5) % Plt Count (150-450) k/uL Macrocytosis PT 16.4 H (10.0-12.5) sec INR 1.6 H (<1.2) APTT 42.1 H (22.0-30.0) sec Sodium 134 L (137-145) mmol/L Potassium 3.4 L (3.5-5.1) mmol/L BUN 19 H (7-17) mg/dL Glucose 117 H (74-99) mg/dL POC Glucose (mg/dL) (70-110) mg/dL Magnesium 1.3 L (1.6-2.3) mg/dL Albumin 2.3 L (3.5-5.0) g/dL IgG <300.0 L (700.0-1600.0) mg/dL IgA 3389.0 H (60.0-350.0) mg/dL IgM <35.0 L (40.0-280.0) mg/dL Crossmatch 08/03/23 08/03/23 08/03/23 Range/Units 00:29 03:00 05:00 WBC (3.8-10.6) k/uL RBC (3.80-5.40) m/uL Hgb (11.4-16.0) gm/dL Hct (34.0-46.0) % MCV (80.0-100.0) fL RDW (11.5-15.5) % Plt Count (150-450) k/uL Macrocytosis PT 15.7 H (10.0-12.5) sec INR 1.5 H (<1.2) APTT 47.1 H (22.0-30.0) sec Sodium 135 L (137-145) mmol/L Potassium (3.5-5.1) mmol/L BUN (7-17) mg/dL Glucose 146 H (74-99) mg/dL POC Glucose (mg/dL) 145 H (70-110) mg/dL Magnesium 2.7 H (1.6-2.3) mg/dL Albumin (3.5-5.0) g/dL IgG (700.0-1600.0) mg/dL IgA (60.0-350.0) mg/dL IgM (40.0-280.0) mg/dL Crossmatch 08/03/23 08/03/23 Range/Units 06:44 08:54 WBC 0.5 L* (3.8-10.6) k/uL RBC 2.21 L (3.80-5.40) m/uL Hgb 7.5 L (11.4-16.0) gm/dL Hct 22.9 L (34.0-46.0) % MCV 103.7 H (80.0-100.0) fL RDW 19.4 H (11.5-15.5) % Plt Count 48 L (150-450) k/uL Macrocytosis Marked A PT (10.0-12.5) sec INR (<1.2) APTT (22.0-30.0) sec Sodium (137-145) mmol/L Potassium (3.5-5.1) mmol/L BUN (7-17) mg/dL Glucose (74-99) mg/dL POC Glucose (mg/dL) 133 H (70-110) mg/dL Magnesium (1.6-2.3) mg/dL Albumin (3.5-5.0) g/dL IgG (700.0-1600.0) mg/dL IgA (60.0-350.0) mg/dL IgM (40.0-280.0) mg/dL Crossmatch Microbiology - Last 24 Hours (Table) 07/31/23 04:12 Blood Culture - Preliminary Blood 07/31/23 18:00 Urine Culture - Final Urine,Catheterized Assessment and Plan (1) Gram-negative bacteremia Current Visit: Yes Status: Acute Priority: High Code(s): R78.81 - BACTEREMIA SNOMED Code(s): 608631936797 (2) Pancytopenia Current Visit: Yes Status: Acute Priority: High Code(s): D61.818 - OTHER PANCYTOPENIA SNOMED Code(s): 020374350 (3) Macrocytic anemia with vitamin B12 deficiency Current Visit: Yes Status: Chronic Priority: Medium Code(s): D51.8 - OTHER VITAMIN B12 DEFICIENCY ANEMIAS SNOMED Code(s): 39750406 (4) Neutropenic colitis Current Visit: Yes Status: Suspected Priority: High Code(s): D70.9 - NEUTROPENIA, UNSPECIFIED; K52.89 - OTHER SPECIFIED NONINFECTIVE GASTROENTERITIS AND COLITIS SNOMED Code(s): 342895361 Plan: Pancytopenia, macrocytic anemia and B12 deficiency -Hemoglobin 7.5, s/p 1 unit PRBCs. Transfuse for hemoglobin less than 7 or if pa tient is symptomatic. CBC daily -Platelets 48,000. DIC and HIT ab negative. Repeat DIC workup negative today. -Unclear the exact etiology of pancytopenia at this time. Suspect sepsis contributing to pancytopenia as well as medications, as was felt to be the case when worked up by [employer] late last year for macrocytic anemia. There are concerns for an underlying bone marrow problem as well due to the severity of the pancytopenia. -Work up has revealed kappa light chain 35.26 and lambda light chain 0.23 with elevated ratio of 153.3. SPEP revealed M spike 2.78. Immunoglobulins revealed IgA 3389. Immunofixation pending. Findings concerning for multiple myeloma. Bone marrow biopsy was discussed with pt. She is agreeable to the same. Would like pt to be more stable before proceeding with biopsy. Will continue to monitor with hopes to schedule biopsy in the next cpl days -G-CSF started with a goal of ANC greater than 1000. WBC 500 -Spoke with IM team regarding workup, concern for multiple myeloma and plans for bone marrow biopsy. Unfortunately due to acute condition with active infection and bowel obstruction would not recommend bone marrow biopsy until she is more stable. Plan as of now, pending her recovery would be to reevaluate within the next cpl days to proceed with biopsy and to continue to closely monitor counts/labs and supportive transfusions. At this time pulmonary medicine recommending transfer to tertiary center for bone marrow biopsy. Our recommendations have been provided, will defer further decisions regarding transfer to IM/pulm teams. -Patient is also on psychiatric meds, trileptal and seroquel. Although not a common side effect, but are known to have effects on blood counts. May be additive and contributing some to cytopenias, may want to consider medication adjustment Abdominal pain, neutropenia -Concerns for neutropenic colitis. -Ultrasound of the abdomen reported pain with exam, bowel gas obstructing view. Abd is distended and is having diffuse tenderness -CT abdomen pelvis obtained revealing moderate groundglass densities in the lung bases, right greater than left. Small pericardial effusion. Long segment of markedly thickened segment of the colon wall with proximal marked dilatation of the colon with air and fluid consistent with a partial large bowel obstruction. Right superficial inguinal adenopathy. -General surgery has been consulted. Recommending continuation of IV abx, NG tube, and small bowel follow through. No endoscopic evaluation planned at this time -Continue NPO diet PE -Diagnosed May. Been on eliquis for the same -Concerns for bleeding, anticoagluation has been held. SCDs for DVT prophyla xis.
[2023-08-03 18:50] LABS: Glucose,Whole Blood 119 mg/dL (70-110)
[2023-08-03] MEDS: CEFEPIME 2 GM in SODIUM CHLORIDE 0.9% 100 ML IVPB SCH (20:46)
[2023-08-03] MEDS: IMMUNE GLOBULIN (GAMMAGARD) 20 GM in EMPTY BAG 1 BAG IV ONE (20:56)
[2023-08-03 23:45] LABS: Glucose,Whole Blood 128 mg/dL (70-110)
[2023-08-04] MEDS: IMMUNE GLOBULIN (GAMMAGARD) 20 GM in EMPTY BAG 1 BAG IV ONE (00:09)
[2023-08-04] MEDS ORDERED: Potassium Replacement Protocol 1 EACH MISC MISCELLANE PRN (00:51)
[2023-08-04] MEDS: POTASSIUM CHLORIDE 10 MEQ in WATER FOR INJECTION 1 100ML.BAG IVPB SCH (01:00)
[2023-08-04 05:34] LABS: ALT 17 U/L (4-34); AST 34 U/L (14-36); African American GFR (CKD) 86 (>60 ml/min/1.73 sqM); Albumin 2.2 g/dL (3.5-5.0); Alkaline Phosphatase 64 U/L (38-126); Anion Gap 6 mmol/L; Blood Urea Nitrogen 22 mg/dL (7-17); Calcium 9.2 mg/dL (8.4-10.2); Carbon Dioxide 23 mmol/L (22-30); Chloride 105 mmol/L (98-107); Glucose 102 mg/dL (74-99); Non-African American GFR(CKD) 75 (>60 ml/min/1.73 sqM); Potassium 4.3 mmol/L (3.5-5.1); Sodium 134 mmol/L (137-145); Total Bilirubin 0.7 mg/dL (0.2-1.3); Total Protein 7.2 g/dL (6.3-8.2)
[2023-08-04 05:35] LABS: Anisocytosis Slight; Hypochromasia Slight; MCHC 32.6 g/dL (31.0-37.0); MCV 104.3 fL (80.0-100.0); Macrocytosis Marked; Mean Platelet Volume 11.1; Platelet Count 51 k/uL (150-450); RBC 1.85 m/uL (3.80-5.40); RDW 18.8 % (11.5-15.5)
[2023-08-04 05:40] LABS: WBC 0.5 k/uL (3.8-10.6)
[2023-08-04 05:43] LABS: HCT 19.3 % (34.0-46.0); HGB 6.3 gm/dL (11.4-16.0)
[2023-08-04 06:04] LABS: Ovalocytes Present
[2023-08-04 06:05] LABS: INR 2.1 (<1.2); Partial Thromboplastin Time 36.2 sec (22.0-30.0); Prothrombin Time 21.2 sec (10.0-12.5)
--- NOTE | 2023-08-04 08:14 | XR ---
EXAMINATION TYPE: XR chest 1V portable DATE OF EXAM: 08/04/2023 COMPARISON: 08/02/1999 HISTORY: Shortness of breath. TECHNIQUE: Single frontal view of the chest is obtained. FINDINGS: NG tube seen coursing of the abdomen likely within the stomach. Bilateral patchy airspace disease is stable. No sizable pleural effusion on the right. Costophrenic angle on the left is not in cluded in the [id number]. Degenerative change of the spine. No sizable pneumothorax. Heart is enla rged. IMPRESSION: Stable bilateral airspace disease and small effusion most likely related to CHF, otherwi se, considered interstitial\atypical pneumonia
--- NOTE | 2023-08-04 10:21 | PN ---
PROGRESS NOTE This lady is in sinus rhythm today. She has pancytopenia of unclear etiology, ejection fraction in the 45% range. She also had atrial fibrillation paroxysmal in nature. She is unable to take oral medication. She is on 0.5 mg of amiodarone drip, which we will continue. She is maintaining sinus rhythm, appears to be hemodynamically stable. Unable to take oral medications at this time. She apparently had a prior history of anxiety, bipolar disorder, pancytopenia with prior pulmonary embolism, was on Eliquis which has been held in view of low platelet count, low hemoglobin and low white count. She has also been treated for sepsis as well. Sepsis could be a precipitating factor or a contributing factor to pancytopenia. Cardiac-palma, she is reasonably stable. LV function is in the 45% range by an echocardiogram. She is not on any pressors at this time and maintaining sinus rhythm. Vitals are stable. S1-S2 heard normally. No significant murmurs. Lungs reveal bilateral air entry. Abdomen is soft. Lower extremity pulses are palpable. Trace edema. Central nervous system assessment was not performed, but grossly patient has no motor deficits. Echo revealed ejection fraction in the 45% range with a small inconsequential pericardial effusion with no signs of tamponade. We will continue current medical regimen including 0.5 mg of amiodarone until she can take oral medications. Supportive care to continue. Await further input from Hematology. JUNIOR / YOLANDA: [phone] /
[2023-08-04] MEDS ORDERED: DEXTROSE 50% SYRINGE 50 ML IVP PRN ×2 (10:59)
[2023-08-04 11:18] LABS: Glucose,Whole Blood 108 mg/dL (70-110)
--- NOTE | 2023-08-04 11:31 | P.PN ---
Subjective Patient is seen in follow-up for acute kidney injury. Renal function back to baseline. Scheduled to receive another unit of blood today. Remains on amiodarone drip. Vital signs are stable. General: Resting in bed. HEENT: On nasal cannula. Has NG tube. LUNGS: No audible rhonchi or wheezes. HEART: Rate and Rhythm are regular. ABDOMEN: Nontender. EXTREMITITES: Trace edema. Objective - Vital Signs Vital signs: Vital Signs Temp 98.7 F 08/04/23 11:03 Pulse 92 08/04/23 11:03 Resp 16 08/04/23 11:03 BP 105/59 08/04/23 11:03 Pulse Ox 95 08/04/23 10:54 FiO2 Intake & Output 08/03/23 08/04/23 08/04/23 18:59 06:59 18:59 Intake Total 5976.942 4082.829 66.67 Output Total 2915 855 50 Balance -1757.775 798.829 16.67 Weight 78.8 kg 78.8 kg Intake: IV 1000 1283.37 66.67 ACETAMINOPHEN IV (For NPO 100 ) 1,000 mg In Empty Bag 1 bag @ 400 mls/hr IVPB Q6HR PRN Rx#:[id number] Amiodarone 450 mg In 183.37 16.67 Dextrose 5% in Water 250 ml @ 0.5 MG/MIN 16.667 mls/hr IV .Q15H [facility] Rx#: [id number] Cefepime 2 gm In Sodium 100 Chloride 0.9% 100 ml @ 25 mls/hr IVPB Q12H [facility] Rx# :[id number] Cefepime 2 gm In Sodium 100 Chloride 0.9% 100 ml @ 25 mls/hr IVPB Q12HR [facility] Rx #:[id number] Lactated Ringers 1,000 ml 200 @ 100 mls/hr IV .Q10H [facility] Rx#:[id number] Lactated Ringers 1,000 ml 500 600 50 @ 50 mls/hr IV .Q20H [facility] Rx#:[id number] Potassium Chloride 10 meq 200 In Water For Injection 1 100ml.bag @ 100 mls/hr IVPB Q1H [facility] Rx#: [id number] metroNIDAZOLE-NS PMX 500 200 100 mg In Saline 1 100ml.bag @ 100 mls/hr IVPB Q8HR [facility] Rx#:[id number] Intake, IV Titration 157.225 370.459 Amount Amiodarone 450 mg In 157.225 Dextrose 5% in Water 250 ml @ 0.5 MG/MIN 16.667 mls/hr IV .Q15H [facility] Rx#: [id number] Amiodarone 450 mg In 236.949 Dextrose 5% in Water 250 ml @ 0.5 MG/MIN 16.667 mls/hr IV .Q15H [facility] Rx#: [id number] Immune Globulin ( 133.51 Gammagard) 20 gm In Empty Bag 1 bag @ Per Protocol IV .Q0M ONE Rx#: [id number] Oral 0 Tube Feeding 0 Blood Product 0 0 Unit 0 Other 0 Output: Gastric Drainage 500 325 Urine 2415 530 50 Other: Voiding Method Indwelling Catheter Indwelling Catheter # Bowel Movements 0 200 - Labs CBC & Chem 7: 08/04/23 04:34 08/04/23 04:34 Labs: Abnormal Lab Results - Last 24 Hours (Table) 08/03/23 08/03/23 08/03/23 Range/Units 11:46 18:49 23:43 WBC (3.8-10.6) k/uL RBC (3.80-5.40) m/uL Hgb (11.4-16.0) gm/dL Hct (34.0-46.0) % MCV (80.0-100.0) fL RDW (11.5-15.5) % Plt Count (150-450) k/uL Neutrophils # (1.3-7.7) k/uL Lymphocytes # (1.0-4.8) k/uL Macrocytosis PT (10.0-12.5) sec INR (<1.2) APTT (22.0-30.0) sec Sodium (137-145) mmol/L BUN (7-17) mg/dL Glucose (74-99) mg/dL POC Glucose (mg/dL) 129 H 119 H 128 H (70-110) mg/dL Albumin (3.5-5.0) g/dL Crossmatch 08/04/23 08/04/23 08/04/23 Range/Units 04:34 04:34 04:34 WBC 0.5 L* (3.8-10.6) k/uL RBC 1.85 L (3.80-5.40) m/uL Hgb 6.3 L* (11.4-16.0) gm/dL Hct 19.3 L* (34.0-46.0) % MCV 104.3 H (80.0-100.0) fL RDW 18.8 H (11.5-15.5) % Plt Count 51 L (150-450) k/uL Neutrophils # 0.1 L* (1.3-7.7) k/uL Lymphocytes # 0.3 L (1.0-4.8) k/uL Macrocytosis Marked A PT 21.2 H (10.0-12.5) sec INR 2.1 H (<1.2) APTT 36.2 H (22.0-30.0) sec Sodium 134 L (137-145) mmol/L BUN 22 H (7-17) mg/dL Glucose 102 H (74-99) mg/dL POC Glucose (mg/dL) (70-110) mg/dL Albumin 2.2 L (3.5-5.0) g/dL Crossmatch 08/04/23 Range/Units 08:55 WBC (3.8-10.6) k/uL RBC (3.80-5.40) m/uL Hgb (11.4-16.0) gm/dL Hct (34.0-46.0) % MCV (80.0-100.0) fL RDW (11.5-15.5) % Plt Count (150-450) k/uL Neutrophils # (1.3-7.7) k/uL Lymphocytes # (1.0-4.8) k/uL Macrocytosis PT (10.0-12.5) sec INR (<1.2) APTT (22.0-30.0) sec Sodium (137-145) mmol/L BUN (7-17) mg/dL Glucose (74-99) mg/dL POC Glucose (mg/dL) (70-110) mg/dL Albumin (3.5-5.0) g/dL Crossmatch See Detail Microbiology - Last 24 Hours (Table) 07/31/23 04:12 Blood Culture - Preliminary Blood Assessment and Plan Plan: Assessment: 1. Acute kidney injury secondary to ATN secondary to septic shock. Resolved. No hydronephrosis noted on CAT scan. 2. Metabolic acidosis secondary to acute kidney injury status post bicarb drip. Improved. 3. Septic shock secondary to Enterobacter bacteremia on antibiotics. 4. Pancytopenia. Elevated kappa light chains. Oncology following. Bone marrow biopsy being considered. Status post blood transfusions this admission. 5. Small to moderate pericardial effusion. 6. Volume overload. Status post IV Lasix yesterday. 7. A-fib with RVR maintained on amiodarone drip. Cardiology following. 8. Partial small bowel obstruction. Surgery following. Plan: Scheduled to receive a unit of blood today. Lasix 20 mg IV once post blood transfusion. Avoid nephrotoxins. Continue to monitor renal function and urine output. Case discussed with hematology oncology. Patient too unstable for bone marrow biopsy at this time. High suspicion for multiple myeloma.
[2023-08-04 11:33] VITALS: BMI 30.7
--- NOTE | 2023-08-04 12:54 | P.PN ---
Subjective Progress Note Date: 08/04/23 Patient is a 63-year-old female with history of pulmonary embolism anticoagulated with Eliquis, GI bleed, GERD, and bipolar disorder who presented to the emergency room with complaints of back pain. On arrival to the emergency department her initial vital signs showed blood pressure of 98/57 however 45 minutes later she had a pulse of 124 with a blood pressure of 73/48. Initial laboratory analysis was remarkable for white blood cell count of 9, hemoglobin 9.1, INR 1.3, D-dimer 3.32, sodium 129, potassium 5.6, carbon dioxide 8, BUN 68, creatinine 5.13, AST 71, ALT 110. Initial urinalysis was negative. Patient had been given 2 L of fluid in the emergency department but remained hypotensive. Patient was called for admission. Her CT head and cervical spine then resulted with no acute intracranial abnormality but cervical spondylosis most progressed at C6-C7. CT chest abdomen and pelvis demonstrated nonspecific right inguinal adenopathy, superior endplate fracture of L3 likely Schmorl's node with clinical correlation recommended. She was given an additional 1 L fluid bolus and started on D5W with 3 A of bicarb. Nephrology was contacted. Arrangements were made for the patient to be admitted to the ICU. She was started on empiric Vanco and Zosyn due to refractory hypotension and shock, in conjunction with neutropenia. Critical care was consulted. Patient began to require norepinephrine. She was found to have Enterobacter bacteremia and antibiotics were streamlined to cefepime. Infectious disease was consulted.Repeat CBC on the patient showed a hemoglobin down to 6.6. 1 unit of packed red blood cells was ordered. Patient went into atrial fibrillation with rapid ventricular response and was initially given Cardizem and then placed on amiodarone bolus. She was more awake and alert by the morning of 07/31/23. Her vasopressors were able to be weaned on 08/01/23. Repeat CT abdomen pelvis shows moderate groundglass densities in the lung bases, long segment of markedly thickened sigmoid colon with proximal marked dilatation of the colon with air and fluid consistent with partial large bowel obstruction, likely acute sigmoid colitis or diverticulitis, neoplasm not entirely excluded. Continues to remain pancytopenic, requiring another unit of PRBCs on 08/01. Surgery was consulted. NG tube placed. [facility] was contacted with regards to transfer, however, was refused as she is receiving appropriate care at this facility at the moment. Patient seen and examined at bedside. Still has periods of confusion. Denies any chest pain, abdominal pain, nausea, vomiting. No bowel movements. Urinary catheter in place. No active bleeding, NG tube in place. Vital signs reviewed General: Chronically ill appearing, no distress, appears at stated age Chest: Large chest wall nodule next to breast augmentation from prior rupture, mildly tender to palpation Cardiovascular: S1S2 reg, no murmur Lungs: Decreased bs bilateral, no rhonchi, no rales, no accessory muscle use Abdominal: soft, mildly tender to palpation, no guarding, NG tube in place Ext: no gross muscle atrophy, no edema b/l lower extremities, no contractures Neuro: CN II-XI grossly intact, no focal neuro deficits Psych: Alert, oriented x2, appropriate affect Assessment/Plan: Neutroepnic sepsis Pancytopenia Septic Shock, resolved Enterobacter cloacae bacteremia Acute colitis Acute hypoxic respiratory failure - off pressors -Cefepime 1 g every 12 hours D #6 - Flagyl 500 mg IV every 8 hours day #4 -ICU and ID following, Lasix 20 IV once started -Repeat blood culture from 07/30 negative growth to date -Continue to wean oxygen -Surgery following, no acute interventions recommended at the moment, small bowel follow-through chronic Pancytopenia with neutropenia, anemia, and now thrombocytopenia Bipolar disorder -Status post 2 unit of PRBCs, receiving another unit daily -Discussed management oncology, continue filgrastim, IVIG, will likely need bone marrow biopsy once stable, recommending repeat CT abdomen pelvis -Trileptal decreased to 100 3 times daily, due to potential risk for pancytopenia, on Seroquel for 400 daily which is also a reduced dose Partial large bowl obstruction -Status post NG tube -Patient ending small bowel follow-through, surgery recommending no acute interventions at the moment Acute kidney injury, resolved Hyponatremia. improved Hypokalemia, resolved -Nephrology recommendations: Patient received IV Lasix 20 today Continue monitor BMP Paroxysmal atrial fibrillation with rapid ventricular response Cardiomyopathy with ejection fraction 40 to 45% -Cardiology note reviewed, recommending continuing amiodarone drip -Anticoagulation currently on hold due to platelets less than 50 -Echocardiogram obtained 07/29 which showed ejection fraction of 40 to 45% - not a candidate for GDMT due to low blood pressures Hx of Pulmonary embolism - hold AC due to plt less than 50 Hypomagnesemia, resolved Endplate fracture L3, possible Schmorl's nodeMRI pending Hyperkalemia, resolved Anion gap metabolic acidosis, resolved Imaging: CT abdomen and pelvis reviewed: Possible partial large bowel obstruction likely secondary to acute sigmoid wall inflammation from IBD or diverticulitis. Neoplasm not completely excluded. 2.8 cm mass in the right superficial inguinal region suspicious for reactive lymphadenopathy. Data Review: WBC 0.5, hemoglobin 6.3, platelet 51, INR 2.1, sodium 134, creatinine 0.85, glucose range between 10 2-1 28 chest x-ray independently interpreted, shows interstitial opacities DVT prophylaxis: SCDs Anticipated discharge date: Pending Clinical Course Anticipated discharge place: Pending Clinical Course Objective - Vital Signs Vital signs: Vital Signs Temp 98.7 F 08/04/23 11:03 Pulse 92 08/04/23 11:03 Resp 16 08/04/23 11:03 BP 105/59 08/04/23 11:03 Pulse Ox 93 L 08/04/23 11:49 FiO2 Intake & Output 08/03/23 08/04/23 08/04/23 18:59 06:59 18:59 Intake Total 5915.641 9068.829 466.67 Output Total 2915 855 50 Balance -1757.775 798.829 416.67 Weight 78.8 kg 78.8 kg Intake: IV 1000 1283.37 466.67 ACETAMINOPHEN IV (For NPO 100 ) 1,000 mg In Empty Bag 1 bag @ 400 mls/hr IVPB Q6HR PRN Rx#:[id number] Amiodarone 450 mg In 183.37 16.67 Dextrose 5% in Water 250 ml @ 0.5 MG/MIN 16.667 mls/hr IV .Q15H [facility] Rx#: [id number] Cefepime 2 gm In Sodium 100 Chloride 0.9% 100 ml @ 25 mls/hr IVPB Q12H [facility] Rx# :[id number] Cefepime 2 gm In Sodium 100 Chloride 0.9% 100 ml @ 25 mls/hr IVPB Q12HR [facility] Rx #:[id number] Lactated Ringers 1,000 ml 200 @ 100 mls/hr IV .Q10H [facility] Rx#:[id number] Lactated Ringers 1,000 ml 500 600 250 @ 50 mls/hr IV .Q20H [facility] Rx#:[id number] Potassium Chloride 10 meq 200 In Water For Injection 1 100ml.bag @ 100 mls/hr IVPB Q1H [facility] Rx#: [id number] cefepime 100 metroNIDAZOLE-NS PMX 500 200 100 100 mg In Saline 1 100ml.bag @ 100 mls/hr IVPB Q8HR [facility] Rx#:[id number] Intake, IV Titration 157.225 370.459 Amount Amiodarone 450 mg In 157.225 Dextrose 5% in Water 250 ml @ 0.5 MG/MIN 16.667 mls/hr IV .Q15H [facility] Rx#: [id number] Amiodarone 450 mg In 236.949 Dextrose 5% in Water 250 ml @ 0.5 MG/MIN 16.667 mls/hr IV .Q15H [facility] Rx#: [id number] Immune Globulin ( 133.51 Gammagard) 20 gm In Empty Bag 1 bag @ Per Protocol IV .Q0M [facility] Rx#: [id number] Oral 0 Tube Feeding 0 Blood Product 0 0 Unit 0 Other 0 Output: Gastric Drainage 500 325 Urine 2415 530 50 Other: Voiding Method Indwelling Catheter Indwelling Catheter Indwelling Catheter # Bowel Movements 0 200 - Labs CBC & Chem 7: 08/04/23 04:34 08/04/23 04:34 Labs: Abnormal Lab Results - Last 24 Hours (Table) 08/03/23 08/03/23 08/04/23 Range/Units 18:49 23:43 04:34 WBC 0.5 L* (3.8-10.6) k/uL RBC 1.85 L (3.80-5.40) m/uL Hgb 6.3 L* (11.4-16.0) gm/dL Hct 19.3 L* (34.0-46.0) % MCV 104.3 H (80.0-100.0) fL RDW 18.8 H (11.5-15.5) % Plt Count 51 L (150-450) k/uL Neutrophils # 0.1 L* (1.3-7.7) k/uL Lymphocytes # 0.3 L (1.0-4.8) k/uL Macrocytosis Marked A PT (10.0-12.5) sec INR (<1.2) APTT (22.0-30.0) sec Sodium (137-145) mmol/L BUN (7-17) mg/dL Glucose (74-99) mg/dL POC Glucose (mg/dL) 119 H 128 H (70-110) mg/dL Albumin (3.5-5.0) g/dL Crossmatch 08/04/23 08/04/23 08/04/23 Range/Units 04:34 04:34 08:55 WBC (3.8-10.6) k/uL RBC (3.80-5.40) m/uL Hgb (11.4-16.0) gm/dL Hct (34.0-46.0) % MCV (80.0-100.0) fL RDW (11.5-15.5) % Plt Count (150-450) k/uL Neutrophils # (1.3-7.7) k/uL Lymphocytes # (1.0-4.8) k/uL Macrocytosis PT 21.2 H (10.0-12.5) sec INR 2.1 H (<1.2) APTT 36.2 H (22.0-30.0) sec Sodium 134 L (137-145) mmol/L BUN 22 H (7-17) mg/dL Glucose 102 H (74-99) mg/dL POC Glucose (mg/dL) (70-110) mg/dL Albumin 2.2 L (3.5-5.0) g/dL Crossmatch See Detail Microbiology - Last 24 Hours (Table) 07/31/23 04:12 Blood Culture - Preliminary Blood
--- NOTE | 2023-08-04 13:10 | P.PN ---
Subjective Progress Note Date: 08/04/23 Principal diagnosis: Acute neutropenic sepsis and neutropenic colitis 63-year-old female patient admitted to the intensive care unit with altered mentation, hypotension and acute kidney injury. The patient presented to the emergency department complaining of some back pain. She was altered, she was encephalopathic and weak. She was found to be hypotensive. She was given s everal fluid boluses and she remained hypotensive and the patient was started on pressors and currently she is on norepinephrine running at 0.1 mcg/kg/min. She was given a total of 4.5 L and currently 2 and a bicarb infusion running at 125 cc an hour. She is producing urine output. Noted that she had an acute kidney injury and the creatinine was elevated at 5.1 with a BUN of 68. Serum bicarb w as at 8 with a potassium level of 5.6 and a sodium levels at 129. She probably has chronic Myelodysplasia as the patient's white cell count was low at 1 with a hemoglobin 9.1 and a platelet count of 153./The patient has pancytopenia. No respiratory difficulties. No cough or sputum production. Chest x-ray showed no evidence of any pneumonia. CT angiogram of the chest showed no evidence of any pulmonary embolism. CAT scan of the abdomen and pelvis was also done that showed no acute abnormalities. There was a small pericardial effusion. Nonspecific right inguinal lymphadenopathy was noted. The patient is having an echocardiogram this morning. The blood gas showed a pH of 7.39 with a pCO2 of 27 and pO2 of 81 minutes with an FiO2 of 28%. Creatinine is on the decline and currently is down to 3.37 with a BUN of 55 and his sodium level is at 133. Free cortisol level is at 33.9. Free T4 is at 0.6 which is essentially low. LDH is not elevated. The viral panel including influenza, COVID-19 and RSV were negative. Coagulation profile was within normal. D-dimer was at 3.98. CT a ngiogram was negative for any pulmonary embolism. CAT scan of the brain was also done in the emergency department along with a CT scan of the cervical spine showed no evidence of any cervical fracture and no evidence of any intracranial abnormalities. Mild spondylosis at the level of C6-C7. No focal neurological deficit. She is able to answer simple commands upon repeated stimulation. CPK was at 33. Troponins were negative. She has previous history of pulm embolism maintained on anticoagulation with Eliquis and this was placed on hold and the patient was started on IV heparin. She was also started empirically on a combination of Zosyn and vancomycin pending further cultures. 07/31/2023, the patient is being seen for a follow-up. Awake and alert and communicating. Continues to have back pain and MRI of the lumbar spine has been ordered. Meanwhile, the patient remains on IV fluids. The patient is on a bicarb infusion at the rate of 125 cc an hour. She also received a unit of packed RBC regarding a drop in hemoglobin down to 6.8 and the follow-up hemoglobin is currently at 8. She remains neutropenic with a white cell count of 0.8 and the patient is also septic and the blood cultures is positive for Enterobacter species. The patient is currently on IV cefepime. She remains on no pressors at this point. She did have an episode of atrial fibrillation yesterday. She was briefly placed on Cardizem at 10 mg an hour and she was given a bolus. She is back into normal sinus rhythm. She is maintained currently on amiodarone at 1 mg/min. In terms of her renal function, the patient's creatinine is improving. BUN is down to 35 with a creatinine of 1.55 and a sodium levels at 133 with a potassium level of 2.5. Oxygenation is stable and the patient is currently on 2 L of O2 nasal cannula with a pulse ox of 95%. Platelet count is also low at 67. A workup regarding this pancytopenia has been initiated. It is also still pending for now. Hepatitis profile has been negative. Iron levels were low and the patient was started on IV iron in addition. 08/01/2023, patient is being seen for a follow-up. The patient is awake and alert. She is complaining of abdominal pain abdominal distention that has developed over the past 24 hours. Noted the patient is neutropenic with a white cell count of 0.6 and the hemoglobin today is at 7.6. Platelet count is at 45. She had gram-negative sepsis and the patient remains on IV cefepime. She is off pressors. Cardiac rhythm is sinus. Function is improved and the follow-up blood work from today shows a BUN of 22 with a creatinine of 0.8 and a sodium noted at 134 and a potassium level is at 4.3. Lactic acid level is at 1.5. The patient is being seen by hematology oncology. This is regarding her pancytopenia. The total serum protein was 6.4. Her free kappa light chains were elevated at 35.2. RIP and rheumatoid factor were negative. MRI of the back is also pending for now. No confusion. No altered mentation. She is awake and alert and communicating. 08/02/2023, patient's condition is essentially unchanged. Probably slightly worse in terms of her abdominal distention. No flatus. No bowel movement activity. No nausea or vomiting. No reported fever or chills. CAT scan of the abdomen was done yesterday minutes was consistent with markedly dilated air and fluid filled loops of the colon. There was a long segment of the sigmoid colon that was thickened and the patient also had dilated bowel in the proximal segments. There was moderate fluid in the cul-de-sac. No intraperitoneal air. Scattered groundglass pulmonary infiltrates in the lung base bilaterally. As such, there was evidence of acute sigmoid wall inflammation consistent with colitis. No diverticulitis. No neoplasm. The patient continues to be pancytopenic. The white cell count today is at 0.5. Hemoglobin is at 6.7 and a platelet count of 45. Limited input from hematology oncology. No immediate plans for biopsy of the bone marrow. Suspicious findings for myeloma. Repeat blood cultures have been negative. The patient is going to receive unit of packed RBC today. BUN is at 21 with a creatinine of 0.8 and a sodium levels at 133. The cardiac rhythm is sinus. The patient remains on a combination of cefe pime and vancomycin. The electrolytes are all within normal limits. Hemodynamically stable and the patient is currently on 5 L of oxygen by nasal cannula with a pulse ox of 95%. 08/03/2023, the patient is being seen for a follow-up. The patient essentially unchanged compared to yesterday. Continues to have abdominal pain which is rather diffuse consistent with colitis given this is neutropenic colitis. The patient is hemodynamically stable on no pressors. NG tube is in place. Total amount of output was 1.1 L over the past 24 hours and the patient remains on amiodarone drip at 0.5 mg/min and the cardiac rhythm is sinus. Fluid balance has been +1.3 L and the patient is on lactated Ringer at rate of 100 cc an hour. She is on oxygen at 5 L/min nasal cannula. White cell count is 0.5, hemoglobin is at 7.5 and a platelet count is 48. BUN is at 17 with a creatinine of 0.8 and a sodium levels at 135. She is lethargic. She is weak. She is quite debilitated. Patient was reevaluated today on 08/04/2023, patient was seen in the ICU, she is on 10 L high flow nasal cannula, she is still requiring norepinephrine, low-dose for maintaining adequate blood pressure. Patient is still on amiodarone 0.5 mg/min, lactated Ringer's at 50 cc/h, hemoglobin is low today at 6.3 and the patient will receive blood transfusion. Continues to have abdominal distention nasogastric tube remains in place, blood cultures positive for Enterobacter cloacae. Patient is having a Gastrografin study today. Hematology is addressing the possibility of multiple myeloma or myelodysplastic syndrome, patient is on cefepime and Flagyl for treatment of her bacteremia. And her colitis. Patient was admitted initially on 07/28 with back pain and abdominal pain, patient has received a total of 3 units of packed RBCs since admission. Patient was seen by general surgery on consultation who felt that the patient is a very high surgical risk, and recommended potential transfer out of the ICU to a tertiary care center. However patient was not accepted at [facility], and I believe the primary admitting service is working on potential transfer to another tertiary care facility. Today I discussed her status with oncologist, considering bone marrow biopsy, but the patient is too ill for biopsy at this point. Surgery is on board, not considering any surgical intervention at this point. Although the patient may eventually require surgical intervention. Labs today are all abnormal WBC count is 0.5 hemoglobin 6.3 platelets are 51,000, basic metabolic profile is normal renal profile is normal, liver profile is normal chest x-ray is showing bilateral airspace disease and small effusion consistent with interstitial pneumonia Objective - Vital Signs Vital signs: Vital Signs Temp 98.7 F 08/04/23 11:03 Pulse 92 08/04/23 11:03 Resp 16 08/04/23 11:03 BP 105/59 08/04/23 11:03 Pulse Ox 93 L 08/04/23 11:49 FiO2 Intake & Output 08/03/23 08/04/23 08/04/23 18:59 06:59 18:59 Intake Total 2423.564 0764.829 466.67 Output Total 2915 855 50 Balance -1757.775 798.829 416.67 Weight 78.8 kg 78.8 kg Intake: IV 1000 1283.37 466.67 ACETAMINOPHEN IV (For NPO 100 ) 1,000 mg In Empty Bag 1 bag @ 400 mls/hr IVPB Q6HR [facility]N Rx#:[id number] Amiodarone 450 mg In 183.37 16.67 Dextrose 5% in Water 250 ml @ 0.5 MG/MIN 16.667 mls/hr IV .Q15H [facility] Rx#: [id number] Cefepime 2 gm In Sodium 100 Chloride 0.9% 100 ml @ 25 mls/hr IVPB Q12H [facility] Rx# :[id number] Cefepime 2 gm In Sodium 100 Chloride 0.9% 100 ml @ 25 mls/hr IVPB Q12HR [facility] Rx #:[id number] Lactated Ringers 1,000 ml 200 @ 100 mls/hr IV .Q10H [facility] Rx#:[id number] Lactated Ringers 1,000 ml 500 600 250 @ 50 mls/hr IV .Q20H [facility] Rx#:[id number] Potassium Chloride 10 meq 200 In Water For Injection 1 100ml.bag @ 100 mls/hr IVPB Q1H [facility] Rx#: [id number] cefepime 100 metroNIDAZOLE-NS PMX 500 200 100 100 mg In Saline 1 100ml.bag @ 100 mls/hr IVPB Q8HR [facility] Rx#:[id number] Intake, IV Titration 157.225 370.459 Amount Amiodarone 450 mg In 157.225 Dextrose 5% in Water 250 ml @ 0.5 MG/MIN 16.667 mls/hr IV .Q15H [facility] Rx#: [id number] Amiodarone 450 mg In 236.949 Dextrose 5% in Water 250 ml @ 0.5 MG/MIN 16.667 mls/hr IV .Q15H [facility] Rx#: [id number] Immune Globulin ( 133.51 Gammagard) 20 gm In Empty Bag 1 bag @ Per Protocol IV .Q0M [facility] Rx#: [id number] Oral 0 Tube Feeding 0 Blood Product 0 0 Unit 0 Other 0 Output: Gastric Drainage 500 325 Urine 2415 530 50 Other: Voiding Method Indwelling Catheter Indwelling Catheter Indwelling Catheter # Bowel Movements 0 200 - Exam GENERAL EXAM: Alert, 63-year-old white female, complaining of abdominal discomfort and distention, patient has nasogastric tube in place, she is on 10 L high flow nasal cannula HEAD: Normocephalic and atraumatic EYES: Normal reaction of pupils, equal size. NOSE: Clear with pink turbinates. Gastric tube is in place. THROAT: No erythema or exudates. NECK: No masses, no JVD. CHEST: No chest wall deformity. LUNGS: Minimal fine crackles at the bases. No rhonchi no wheezes CVS: Normal S1-S2, no S3 gallop, no murmur. ABDOMEN: Distended abdomen, diffuse abdominal tenderness is noted, diminished bowel sounds SKIN: No rashes CENTRAL NERVOUS SYSTEM: Alert and oriented x 3 no gross focal deficits. EXTREMITIES: There is no peripheral edema, clubbing, or cyanosis. Peripheral pulses are intact. - Labs CBC & Chem 7: 08/04/23 04:34 08/04/23 04:34 Labs: Abnormal Lab Results - Last 24 Hours (Table) 08/03/23 08/03/23 08/04/23 Range/Units 18:49 23:43 04:34 WBC 0.5 L* (3.8-10.6) k/uL RBC 1.85 L (3.80-5.40) m/uL Hgb 6.3 L* (11.4-16.0) gm/dL Hct 19.3 L* (34.0-46.0) % MCV 104.3 H (80.0-100.0) fL RDW 18.8 H (11.5-15.5) % Plt Count 51 L (150-450) k/uL Neutrophils # 0.1 L* (1.3-7.7) k/uL Lymphocytes # 0.3 L (1.0-4.8) k/uL Macrocytosis Marked A PT (10.0-12.5) sec INR (<1.2) APTT (22.0-30.0) sec Sodium (137-145) mmol/L BUN (7-17) mg/dL Glucose (74-99) mg/dL POC Glucose (mg/dL) 119 H 128 H (70-110) mg/dL Albumin (3.5-5.0) g/dL Crossmatch 08/04/23 08/04/23 08/04/23 Range/Units 04:34 04:34 08:55 WBC (3.8-10.6) k/uL RBC (3.80-5.40) m/uL Hgb (11.4-16.0) gm/dL Hct (34.0-46.0) % MCV (80.0-100.0) fL RDW (11.5-15.5) % Plt Count (150-450) k/uL Neutrophils # (1.3-7.7) k/uL Lymphocytes # (1.0-4.8) k/uL Macrocytosis PT 21.2 H (10.0-12.5) sec INR 2.1 H (<1.2) APTT 36.2 H (22.0-30.0) sec Sodium 134 L (137-145) mmol/L BUN 22 H (7-17) mg/dL Glucose 102 H (74-99) mg/dL POC Glucose (mg/dL) (70-110) mg/dL Albumin 2.2 L (3.5-5.0) g/dL Crossmatch See Detail Microbiology - Last 24 Hours (Table) 07/31/23 04:12 Blood Culture - Preliminary Blood Assessment and Plan Assessment: Impression: Acute neutropenic sepsis Acute neutropenic colitis/sigmoid colitis Pancytopenia, being addressed by oncology considering a bone marrow biopsy Acute metabolic encephalopathy Septic shock and bacteremia secondary to Enterobacter cloacae Acute kidney injury Electrolytes imbalance including hyponatremia and hyperkalemia improved Mild systolic congestive heart failure, ejection fraction 40 to 45% Small pericardial effusion noted on CT of the chest paroxysmal atrial fibrillation on amiodarone Low back pain awaiting MRI of the lumbar spine. History of bipolar disorder. Recommendation: Continue oxygen and titrate accordingly Continue antibiotics including cefepime and Flagyl Continue Crockett catheter in place Continue nasogastric tube in place Reviewed the notes from nephrology and hematology on the case. Discussed her condition with her visiting housekeeper on the case. Considering bone marrow biopsy but she is not a great candidate for this at this point in time. Strongly believe that the patient will be better off for a tertiary care center apparently she was declined transfer at [facility]. Continue to monitor in the ICU Titrate norepinephrine accordingly to maintain adequate blood pressure Patient remains critically ill. Patient received IVIG as per oncology on the case. Critical care time is over 30 minutes Prognosis is extremely poor and guarded. Time with Patient: Greater than 30
[2023-08-04] MEDS: INSULIN ASPART (NovoLOG) 100 UNIT/ML VIAL SQ SCH (13:21)
[2023-08-04] MEDS: FUROSEMIDE 10 MG/ML 2 ML VIAL IV ONE (13:24)
--- NOTE | 2023-08-04 13:36 | P.PN ---
Subjective Progress Note Date: 08/04/23 Principal diagnosis: pancytopenia In f/u pt is confused, abd is very tender, sensitive, she is resistant to positioning. NG tube in place, bilious liquid in canister Objective - Vital Signs Vital signs: Vital Signs Temp 98.1 F 08/04/23 04:00 Pulse 100 08/04/23 07:00 Resp 20 08/04/23 07:00 BP 94/57 08/04/23 07:00 Pulse Ox 87 L 08/04/23 07:00 FiO2 Intake & Output 08/03/23 08/04/23 08/04/23 18:59 06:59 18:59 Intake Total 3098.227 8143.829 66.67 Output Total 2915 855 50 Balance -1757.775 798.829 16.67 Weight 78.8 kg Intake: IV 1000 1283.37 66.67 ACETAMINOPHEN IV (For NPO 100 ) 1,000 mg In Empty Bag 1 bag @ 400 mls/hr IVPB Q6HR PRN Rx#:[id number] Amiodarone 450 mg In 183.37 16.67 Dextrose 5% in Water 250 ml @ 0.5 MG/MIN 16.667 mls/hr IV .Q15H [facility] Rx#: [id number] Cefepime 2 gm In Sodium 100 Chloride 0.9% 100 ml @ 25 mls/hr IVPB Q12H [facility] Rx# :[id number] Cefepime 2 gm In Sodium 100 Chloride 0.9% 100 ml @ 25 mls/hr IVPB Q12HR [facility] Rx #:[id number] Lactated Ringers 1,000 ml 200 @ 100 mls/hr IV .Q10H [facility] Rx#:[id number] Lactated Ringers 1,000 ml 500 600 50 @ 50 mls/hr IV .Q20H [facility] Rx#:[id number] Potassium Chloride 10 meq 200 In Water For Injection 1 100ml.bag @ 100 mls/hr IVPB Q1H [facility] Rx#: [id number] metroNIDAZOLE-NS PMX 500 200 100 mg In Saline 1 100ml.bag @ 100 mls/hr IVPB Q8HR [facility] Rx#:[id number] Intake, IV Titration 157.225 370.459 Amount Amiodarone 450 mg In 157.225 Dextrose 5% in Water 250 ml @ 0.5 MG/MIN 16.667 mls/hr IV .Q15H [facility] Rx#: [id number] Amiodarone 450 mg In 236.949 Dextrose 5% in Water 250 ml @ 0.5 MG/MIN 16.667 mls/hr IV .Q15H [facility] Rx#: [id number] Immune Globulin ( 133.51 Gammagard) 20 gm In Empty Bag 1 bag @ Per Protocol IV .Q0M [facility] Rx#: [id number] Oral 0 Tube Feeding 0 Blood Product 0 Other 0 Output: Gastric Drainage 500 325 Urine 2415 530 50 Other: Voiding Method Indwelling Catheter Indwelling Catheter # Bowel Movements 0 200 - Constitutional General appearance: Present: average body habitus, disheveled, severe distress - EENT Eyes: Present: anicteric sclerae ENT: Present: hearing grossly normal - Respiratory Respiratory: bilateral: diminished - Gastrointestinal General gastrointestinal: Present: distended, tenderness - Musculoskeletal Musculoskeletal: Present: generalized weakness - Labs CBC & Chem 7: 08/05/23 04:02 08/05/23 04:02 Labs: Abnormal Lab Results - Last 24 Hours (Table) 08/03/23 08/03/23 08/03/23 Range/Units 03:00 08:54 11:46 WBC 0.5 L* (3.8-10.6) k/uL RBC 2.21 L (3.80-5.40) m/uL Hgb 7.5 L (11.4-16.0) gm/dL Hct 22.9 L (34.0-46.0) % MCV 103.7 H (80.0-100.0) fL RDW 19.4 H (11.5-15.5) % Plt Count 48 L (150-450) k/uL Neutrophils # (1.3-7.7) k/uL Lymphocytes # (1.0-4.8) k/uL Macrocytosis Marked A PT (10.0-12.5) sec INR (<1.2) APTT (22.0-30.0) sec Sodium 135 L (137-145) mmol/L BUN (7-17) mg/dL Glucose 146 H (74-99) mg/dL POC Glucose (mg/dL) 129 H (70-110) mg/dL Magnesium 2.7 H (1.6-2.3) mg/dL Albumin (3.5-5.0) g/dL 08/03/23 08/03/23 08/04/23 Range/Units 18:49 23:43 04:34 WBC 0.5 L* (3.8-10.6) k/uL RBC 1.85 L (3.80-5.40) m/uL Hgb 6.3 L* (11.4-16.0) gm/dL Hct 19.3 L* (34.0-46.0) % MCV 104.3 H (80.0-100.0) fL RDW 18.8 H (11.5-15.5) % Plt Count 51 L (150-450) k/uL Neutrophils # 0.1 L* (1.3-7.7) k/uL Lymphocytes # 0.3 L (1.0-4.8) k/uL Macrocytosis Marked A PT (10.0-12.5) sec INR (<1.2) APTT (22.0-30.0) sec Sodium (137-145) mmol/L BUN (7-17) mg/dL Glucose (74-99) mg/dL POC Glucose (mg/dL) 119 H 128 H (70-110) mg/dL Magnesium (1.6-2.3) mg/dL Albumin (3.5-5.0) g/dL 08/04/23 08/04/23 Range/Units 04:34 04:34 WBC (3.8-10.6) k/uL RBC (3.80-5.40) m/uL Hgb (11.4-16.0) gm/dL Hct (34.0-46.0) % MCV (80.0-100.0) fL RDW (11.5-15.5) % Plt Count (150-450) k/uL Neutrophils # (1.3-7.7) k/uL Lymphocytes # (1.0-4.8) k/uL Macrocytosis PT 21.2 H (10.0-12.5) sec INR 2.1 H (<1.2) APTT 36.2 H (22.0-30.0) sec Sodium 134 L (137-145) mmol/L BUN 22 H (7-17) mg/dL Glucose 102 H (74-99) mg/dL POC Glucose (mg/dL) (70-110) mg/dL Magnesium (1.6-2.3) mg/dL Albumin 2.2 L (3.5-5.0) g/dL Microbiology - Last 24 Hours (Table) 07/31/23 04:12 Blood Culture - Preliminary Blood - Imaging and Cardiology Chest x-ray: report reviewed Assessment and Plan (1) Pancytopenia Current Visit: Yes Status: Acute Priority: High Code(s): D61.818 - OTHER PANCYTOPENIA SNOMED Code(s): 289692930 (2) Neutropenic colitis Current Visit: Yes Status: Suspected Priority: High Code(s): D70.9 - NEUTROPENIA, UNSPECIFIED; K52.89 - OTHER SPECIFIED NONINFECTIVE GASTROENTERITIS AND COLITIS SNOMED Code(s): 170063192 (3) Macrocytic anemia with vitamin B12 deficiency Current Visit: Yes Status: Chronic Priority: Medium Code(s): D51.8 - OTHER VITAMIN B12 DEFICIENCY ANEMIAS SNOMED Code(s): 77424348 (4) Pulmonary embolism Current Visit: No Status: Chronic Onset Date: ~05/2022 Code(s): I26.99 - OTHER PULMONARY EMBOLISM WITHOUT ACUTE COR PULMONALE SNOMED Code(s): 13619980 Plan: Pancytopenia, macrocytic anemia and B12 deficiency -Anemia hemoglobin 6.3 today, PRBCs ordered. Transfuse for hemoglobin less than 7 or if patient is symptomatic. CBC daily -Platelets 51,000, stable. Transfuse for plt <10,000 or if symptomatic, or <50,000 if anticoagulated. -Lab work up consistent with IgA [place] paraproteinemia, underlying cause for pancytopenia. Sepsis further contributing to pancytopenia, as well as medication effects on bone marrow. -Bone marrow biopsy was discussed with pt late last week. Would like pt to be more stable before proceeding with the same. -Case discussed with Critical Care team and IM today. Doing a bone marrow biospy will not change the acute mgmt of this pt. She is septic and requires treatment of the same. She needs mgmt of her bowel. MM diagnosis will require treatment but, in any pt with MM, acute infections/emergent medical conditions need to be treated first. MM patients commonly present with very low counts and infection and treatment is not usually initiated until acute condition managed. If pt requires transfer then it will be because of teritary mgmt of acute bowel condition. Transfusion recs remain the same as above. If plans for any procedures please contact Hematology directly for recommendations. Abdominal pain, neutropenia -Concerns for abd pain and distension. NeutropenicColitis concerning with low ANC. GCSF is ordered and being given. -Abd cont to be distended today, worse then last week. Recommend additional imaging. -NPO with NG tube PE -Diagnosed May. Been on eliquis for the same -Concerns for bleeding, low platelets. Anticoagluation was held, today pt is auto-anticoagulated. Coags and CBC daily. -Cont SCDs for DVT prophylaxis. Auto-anticoagulated -Pt INR is 2.1 today. Fibrinogen normal. -Cont to monitor coags in acutely ill patient. -Reverse INR if plt <50,000 or if acutely bleeding Attests: I have seen and examined pt, performed H&P, developed impression and plan of care. Discussed with dictator. Agree with documentation, dictated as a scribe. Ms. Sanchez has had a complicated medical course characterized by pancytopenia, septic shock, and atrial fibrillation with RVR due to enterobacter bacteremia. Moreover, she is having progressive abdominal pain with distention due to partial bowel obstruction in sigmoid colon. Appropriate hematology workup has revealed IgA kappa paraproteinemia, likely consistent with multiple myeloma. 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 There is no doubt she will require a bone marrow biopsy to confirm this diagnosis. Bone marrow biopsy in this scenario reveals percentage of plasma cells in bone marrow as well as risk stratify her myeloma based on cytogenetics and FISH. While very useful, this information will not help treat her bacteremia or alleviate her bowel obstruction. Treating these acute issues should be the priority at this time. Transfer to tertiary center may become indicated for management of her acute medical condition, but not for additional hematology workup. If there are any questions in regards to her hematologic condition or workup performed, please do not hesitate to contact us. Yaya Peace MD
[2023-08-04 13:39] LABS: Magnesium 1.9 mg/dL (1.6-2.3); Phosphorus 4.9 mg/dL (2.5-4.5)
[2023-08-04 14:08] LABS: Anisocytosis Moderate; HCT 25.7 % (34.0-46.0); Hypochromasia Slight; MCH 31.4 pg (25.0-35.0); MCV 101.3 fL (80.0-100.0); Macrocytosis Marked; Mean Platelet Volume 10.1; RBC 2.54 m/uL (3.80-5.40); RDW 20.9 % (11.5-15.5)
[2023-08-04] MEDS ORDERED: Magnesium Replacement Protocol 1 EACH MISC MISCELLANE PRN (14:24)
--- NOTE | 2023-08-04 14:43 | FL ---
EXAMINATION TYPE: FL small bowel follow through DATE OF EXAM: 08/04/2023 CLINICAL HISTORY: Pain with dilated bowel possible bowel obstruction. TECHNIQUE: A single contrast small bowel follow through is performed utilizing barium. COMPARISON: None FINDINGS: [employer] image of the abdomen shows a markedly dilated multiple small bowel loops measuring u p to a diameter 5.1 cm. There is a small amount of air seen distally within the rectum and left colon . NG tube is noted in position and left upper quadrant. Subsegmental basilar atelectasis. Previous ri ght breast surgery. . The small bowel study shows marked delay transit with 5 hour post demonstrating only a small amount o f contrast extending into the dilated small bowel. Findings are suspicious for bowel obstruction. IMPRESSION: 1. Findings are suggestive of high-grade bowel obstruction. A follow-up abdominal KUB could be obtain ed for further evaluation to determine if the contrast eventually reaches the colon.
[2023-08-04 14:44] LABS: WBC 0.4 k/uL (3.8-10.6)
[2023-08-04 14:45] LABS: Platelet Count 50 k/uL (150-450)
[2023-08-04] MEDS: MAGNESIUM SULFATE-D5W PMX 1 GM in DEXTROSE/WATER 1 100ML.BAG IVPB ONE (14:52)
--- NOTE | 2023-08-04 15:37 | P.PN ---
Subjective Progress Note Date: 08/04/23 CHIEF COMPLAINT: Abdominal pain HISTORY OF PRESENT ILLNESS: The patient is a 63 year old female seen in the ICU for abdominal pain. Patient presents with neutropenia and malignancy of uncertain etiology. Patient remains in the ICU. She reports improving abdominal pain. No flatus or bowel movement. She is undergoing a small bowel follow-through study today. NG tube with 100 mL output. Hemoglobin 6.3 she is receiving another unit of blood. Patient was declined by [facility] for transfer at this time. Afebrile. Repeat CBC after blood transfusion WBC 0.4 hemoglobin 6.3 up to 8.0 platelets 50 Small bowel follow-through reports findings are suggestive of high-grade bowel obstruction PHYSICAL EXAM: VITAL SIGNS: Reviewed GENERAL: Well-developed in no acute distress. HEENT: No sclera icterus. Extraocular movements grossly intact. Moist buccal mucosa. Head is atraumatic, normocephalic. Hears conversational speech. No nasal drainage. NECK: Supple without lymphadenopathy. CHEST: Non-labored respirations and equal bilateral excursions. CARDIOVASCULAR: Palpable 2+ radial pulses. ABDOMEN: Decreased abdominal distention. No diffuse peritonitis. MUSCULOSKELETAL: No clubbing or cyanosis. NEUROLOGIC: No focal or lateralizing signs. Cranial nerves II through XII grossly intact. PSYCH: awake SKIN: Well perfused. Good skin turgor. ASSESSMENT: 1. Findings suspicious for high-grade bowel obstruction noted on small bowel follow-through 2. Colitis sigmoid colon 3. Neutropenia 4. Anemia 5. Elevated liver enzyme 6. Malignancy of uncertain etiology PLAN: -Continue NG tube for decompression -Will review small bowel follow-through results with Dr. Swann. -Further recommendations forthcoming per surgeon -N.p.o. except for ice chips -Patient presents with complicated multiple medical comorbidities which would make any surgical intervention extremely high risk. -Due to limited resources at this facility, agree with transfer to tertiary care center for further management Physician Sheet Folder note has been reviewed by physician. Signing provider agrees with the documented findings, assessment, and plan of care. Objective - Vital Signs Vital signs: Vital Signs Temp 98.7 F 08/04/23 12:00 Pulse 96 08/04/23 15:00 Resp 18 08/04/23 15:00 BP 112/70 08/04/23 15:00 Pulse Ox 94 L 08/04/23 15:00 FiO2 Intake & Output 08/03/23 08/04/23 08/04/23 18:59 06:59 18:59 Intake Total 4192.038 6884.829 946.67 Output Total 2915 855 630 Balance -1757.775 798.829 316.67 Weight 78.8 kg 78.8 kg Intake: IV 1000 1283.37 536.67 0.9NS 20 ACETAMINOPHEN IV (For NPO 100 ) 1,000 mg In Empty Bag 1 bag @ 400 mls/hr IVPB Q6HR PRN Rx#:[id number] Amiodarone 450 mg In 183.37 16.67 Dextrose 5% in Water 250 ml @ 0.5 MG/MIN 16.667 mls/hr IV .Q15H [facility]CLUDES [facility] Rx#: [id number] Cefepime 2 gm In Sodium 100 Chloride 0.9% 100 ml @ 25 mls/hr IVPB Q12H [facility] Rx# :[id number] Cefepime 2 gm In Sodium 100 Chloride 0.9% 100 ml @ 25 mls/hr IVPB Q12HR [facility] Rx #:[id number] Lactated Ringers 1,000 ml 200 @ 100 mls/hr IV .Q10H [facility] Rx#:[id number] Lactated Ringers 1,000 ml 500 600 300 @ 50 mls/hr IV .Q20H COUNT INCLUDES [facility] Rx#:[id number] Potassium Chloride 10 meq 200 In Water For Injection 1 100ml.bag @ 100 mls/hr IVPB Q1H COUNT INCLUDES THE [facility] Rx#: [id number] cefepime 100 metroNIDAZOLE-NS PMX 500 200 100 100 mg In Saline 1 100ml.bag @ 100 mls/hr IVPB Q8HR [facility] Rx#:[id number] Intake, IV Titration 157.225 370.459 100 Amount Amiodarone 450 mg In 157.225 Dextrose 5% in Water 250 ml @ 0.5 MG/MIN 16.667 mls/hr IV .Q15H COUNT INCLUDES [facility] Rx#: [id number] Amiodarone 450 mg In 236.949 Dextrose 5% in Water 250 ml @ 0.5 MG/MIN 16.667 mls/hr IV .Q15H COUNT INCLUDES THE [facility] Rx#: [id number] Immune Globulin ( 133.51 Gammagard) 20 gm In Empty Bag 1 bag @ Per Protocol IV .Q0M [facility] Rx#: [id number] Magnesium Sulfate-D5w Pmx 100 1 gm In Dextrose/Water 1 100ml.bag @ 100 mls/hr IVPB ONCE [facility] Rx#: [id number] Oral 0 Tube Feeding 0 Blood Product 0 310 Rc As-1 Unit 310 [id number] Other 0 Output: Gastric Drainage 500 325 Urine 2415 530 630 Other: Voiding Method Indwelling Catheter Indwelling Catheter Indwelling Catheter # Bowel Movements 0 200 - Labs CBC & Chem 7: 08/04/23 13:45 08/04/23 04:34 Labs: Abnormal Lab Results - Last 24 Hours (Table) 08/03/23 08/03/23 08/04/23 Range/Units 18:49 23:43 04:34 WBC 0.5 L* (3.8-10.6) k/uL RBC 1.85 L (3.80-5.40) m/uL Hgb 6.3 L* (11.4-16.0) gm/dL Hct 19.3 L* (34.0-46.0) % MCV 104.3 H (80.0-100.0) fL RDW 18.8 H (11.5-15.5) % Plt Count 51 L (150-450) k/uL Neutrophils # 0.1 L* (1.3-7.7) k/uL Lymphocytes # 0.3 L (1.0-4.8) k/uL Macrocytosis Marked A PT (10.0-12.5) sec INR (<1.2) APTT (22.0-30.0) sec Sodium (137-145) mmol/L BUN (7-17) mg/dL Glucose (74-99) mg/dL POC Glucose (mg/dL) 119 H 128 H (70-110) mg/dL Phosphorus (2.5-4.5) mg/dL Albumin (3.5-5.0) g/dL Crossmatch 08/04/23 08/04/23 08/04/23 Range/Units 04:34 04:34 08:55 WBC (3.8-10.6) k/uL RBC (3.80-5.40) m/uL Hgb (11.4-16.0) gm/dL Hct (34.0-46.0) % MCV (80.0-100.0) fL RDW (11.5-15.5) % Plt Count (150-450) k/uL Neutrophils # (1.3-7.7) k/uL Lymphocytes # (1.0-4.8) k/uL Macrocytosis PT 21.2 H (10.0-12.5) sec INR 2.1 H (<1.2) APTT 36.2 H (22.0-30.0) sec Sodium 134 L (137-145) mmol/L BUN 22 H (7-17) mg/dL Glucose 102 H (74-99) mg/dL POC Glucose (mg/dL) (70-110) mg/dL Phosphorus (2.5-4.5) mg/dL Albumin 2.2 L (3.5-5.0) g/dL Crossmatch See Detail 08/04/23 08/04/23 Range/Units 11:15 13:45 WBC 0.4 L* (3.8-10.6) k/uL RBC 2.54 L (3.80-5.40) m/uL Hgb 8.0 L D (11.4-16.0) gm/dL Hct 25.7 L (34.0-46.0) % MCV 101.3 H (80.0-100.0) fL RDW 20.9 H (11.5-15.5) % Plt Count 50 L (150-450) k/uL Neutrophils # (1.3-7.7) k/uL Lymphocytes # (1.0-4.8) k/uL Macrocytosis Marked A PT (10.0-12.5) sec INR (<1.2) APTT (22.0-30.0) sec Sodium (137-145) mmol/L BUN (7-17) mg/dL Glucose (74-99) mg/dL POC Glucose (mg/dL) (70-110) mg/dL Phosphorus 4.9 H (2.5-4.5) mg/dL Albumin (3.5-5.0) g/dL Crossmatch Microbiology - Last 24 Hours (Table) 07/31/23 04:12 Blood Culture - Preliminary Blood
[2023-08-04 15:38] LABS: Rouleaux Present
--- NOTE | 2023-08-04 15:49 | P.PN ---
Progress Note - Text Progress Note Date: 08/04/23 Small bowel follow-through confirmed high-grade bowel obstruction requiring surgical invention. Due to limited blood products availability including platelets, resources, do agree with transfer to tertiary care center for surgical intervention
[2023-08-04 17:47] LABS: Glucose,Whole Blood 121 mg/dL (70-110)
--- NOTE | 2023-08-04 18:09 | P.PN ---
Subjective Progress Note Date: 08/04/23 Principal diagnosis: Reason for follow-up visit Enterobacter bacteremia Patient is a 63-year-old female with a past medical history significant for reflux PE anxiety bipolar depression patient was brought into the hospital for 1 day history of severe low back pain, patient was noted to be febrile did have elevated lactic acid abnormality of likely on the CT abdominal pelvis and a positive blood culture concerning for possible discitis osteomyelitis. On today's evaluation that is 08/04/2023,the patient denies any fever or any chills, patient is currently requiring 8 L high flow supplemental oxygen patient did have a cough not bring up any sputum seem to be pleasantly confused is soft restraint no vomiting diarrhea or any change reported by the nursing staff. Patient white count is 0.4 creatinine 0.8 5 repeat blood culture negative Objective - Vital Signs Vital signs: Vital Signs Temp 98.7 F 08/04/23 11:03 Pulse 92 08/04/23 11:03 Resp 16 08/04/23 11:03 BP 105/59 08/04/23 11:03 Pulse Ox 93 L 08/04/23 11:49 FiO2 Intake & Output 08/03/23 08/04/23 08/04/23 18:59 06:59 18:59 Intake Total 9228.794 5960.829 466.67 Output Total 2915 855 50 Balance -1757.775 798.829 416.67 Weight 78.8 kg 78.8 kg Intake: IV 1000 1283.37 466.67 ACETAMINOPHEN IV (For NPO 100 ) 1,000 mg In Empty Bag 1 bag @ 400 mls/hr IVPB Q6HR PRN Rx#:[id number] Amiodarone 450 mg In 183.37 16.67 Dextrose 5% in Water 250 ml @ 0.5 MG/MIN 16.667 mls/hr IV .Q15H [facility] Rx#: [id number] Cefepime 2 gm In Sodium 100 Chloride 0.9% 100 ml @ 25 mls/hr IVPB Q12H [facility] Rx# :[id number] Cefepime 2 gm In Sodium 100 Chloride 0.9% 100 ml @ 25 mls/hr IVPB Q12HR [facility] Rx #:[id number] Lactated Ringers 1,000 ml 200 @ 100 mls/hr IV .Q10H [facility] Rx#:[id number] Lactated Ringers 1,000 ml 500 600 250 @ 50 mls/hr IV .Q20H [facility] Rx#:[id number] Potassium Chloride 10 meq 200 In Water For Injection 1 100ml.bag @ 100 mls/hr IVPB Q1H [facility] Rx#: [id number] cefepime 100 metroNIDAZOLE-NS PMX 500 200 100 100 mg In Saline 1 100ml.bag @ 100 mls/hr IVPB Q8HR [facility] Rx#:[id number] Intake, IV Titration 157.225 370.459 Amount Amiodarone 450 mg In 157.225 Dextrose 5% in Water 250 ml @ 0.5 MG/MIN 16.667 mls/hr IV .Q15H [facility] Rx#: [id number] Amiodarone 450 mg In 236.949 Dextrose 5% in Water 250 ml @ 0.5 MG/MIN 16.667 mls/hr IV .Q15H [facility] Rx#: [id number] Immune Globulin ( 133.51 Gammagard) 20 gm In Empty Bag 1 bag @ Per Protocol IV .Q0M [facility] Rx#: [id number] Oral 0 Tube Feeding 0 Blood Product 0 0 Unit 0 Other 0 Output: Gastric Drainage 500 325 Urine 2415 530 50 Other: Voiding Method Indwelling Catheter Indwelling Catheter Indwelling Catheter # Bowel Movements 0 200 - Exam GENERAL DESCRIPTION: Middle-aged female lying in bed in no distress RESPIRATORY SYSTEM: Unlabored breathing , decreased breath sounds at bases HEART: S1 S2 regular rate and rhythm , ABDOMEN: Soft , no tenderness EXTREMITIES: No edema feet - Labs CBC & Chem 7: 08/04/23 13:45 08/04/23 04:34 Labs: Abnormal Lab Results - Last 24 Hours (Table) 08/03/23 08/03/23 08/04/23 Range/Units 18:49 23:43 04:34 WBC 0.5 L* (3.8-10.6) k/uL RBC 1.85 L (3.80-5.40) m/uL Hgb 6.3 L* (11.4-16.0) gm/dL Hct 19.3 L* (34.0-46.0) % MCV 104.3 H (80.0-100.0) fL RDW 18.8 H (11.5-15.5) % Plt Count 51 L (150-450) k/uL Neutrophils # 0.1 L* (1.3-7.7) k/uL Lymphocytes # 0.3 L (1.0-4.8) k/uL Macrocytosis Marked A PT (10.0-12.5) sec INR (<1.2) APTT (22.0-30.0) sec Sodium (137-145) mmol/L BUN (7-17) mg/dL Glucose (74-99) mg/dL POC Glucose (mg/dL) 119 H 128 H (70-110) mg/dL Albumin (3.5-5.0) g/dL Crossmatch 08/04/23 08/04/23 08/04/23 Range/Units 04:34 04:34 08:55 WBC (3.8-10.6) k/uL RBC (3.80-5.40) m/uL Hgb (11.4-16.0) gm/dL Hct (34.0-46.0) % MCV (80.0-100.0) fL RDW (11.5-15.5) % Plt Count (150-450) k/uL Neutrophils # (1.3-7.7) k/uL Lymphocytes # (1.0-4.8) k/uL Macrocytosis PT 21.2 H (10.0-12.5) sec INR 2.1 H (<1.2) APTT 36.2 H (22.0-30.0) sec Sodium 134 L (137-145) mmol/L BUN 22 H (7-17) mg/dL Glucose 102 H (74-99) mg/dL POC Glucose (mg/dL) (70-110) mg/dL Albumin 2.2 L (3.5-5.0) g/dL Crossmatch See Detail Microbiology - Last 24 Hours (Table) 07/31/23 04:12 Blood Culture - Preliminary Blood Assessment and Plan (1) Gram-negative bacteremia Current Visit: Yes Status: Acute Priority: High Code(s): R78.81 - BACTEREMIA SNOMED Code(s): 276554757207 Plan: 1patient presented to hospital with sepsis in this patient who did have a fever tachycardia hypotension significant leukopenia now with evidence of Enterobacter bacteremia in this patient with significant lower back pain, some abnormality of the L3 was seen on the CT abdominal pelvis concern for possible discitis or osteomyelitis as no other focus of infection with clinically as well as on the basis of investigation done so far 2-patient with a renal insufficiency high risk of nephrotoxicity: 3-patient repeat CT abdominal pelvis did show significant change in the sigmoid colon could be the source of this bacteremia however will benefit from MRI of the lumbar spine when Hemodynamically stable 4-patient repeat blood culture has been negative so far 5- patient to continue with the current treatment of cefepime and Flagyl and monitor clinical course closely Dictation was produced using [employer] dictation software. please excuse any g rammatical, word or spelling errors. Time with Patient: Less than 30
[2023-08-04] MEDS: MVI, ADULT NO.4 WITH VIT K 10 ML, TRACE (CONC-1ML/DOSE) 1 ML, SODIUM ACETATE 30 MEQ, PO... IV SCH (19:00)
[2023-08-04 23:39] LABS: Glucose,Whole Blood 153 mg/dL (70-110)
[2023-08-05 04:41] LABS: Anisocytosis Moderate; HCT 22.8 % (34.0-46.0); HGB 7.1 gm/dL (11.4-16.0); Hypochromasia Slight; MCH 31.4 pg (25.0-35.0); MCHC 31.1 g/dL (31.0-37.0); Macrocytosis Marked; Mean Platelet Volume 10.4; Platelet Count 50 k/uL (150-450); RBC 2.26 m/uL (3.80-5.40); RDW 21.2 % (11.5-15.5)
[2023-08-05 05:16] LABS: WBC 0.5 k/uL (3.8-10.6)
[2023-08-05 05:19] LABS: ALT 16 U/L (4-34); AST 31 U/L (14-36); African American GFR (CKD) 89 (>60 ml/min/1.73 sqM); Albumin 2.3 g/dL (3.5-5.0); Alkaline Phosphatase 72 U/L (38-126); Anion Gap 6 mmol/L; Blood Urea Nitrogen 24 mg/dL (7-17); Carbon Dioxide 27 mmol/L (22-30); Chloride 107 mmol/L (98-107); Glucose 152 mg/dL (74-99); Non-African American GFR(CKD) 77 (>60 ml/min/1.73 sqM); Phosphorus 3.6 mg/dL (2.5-4.5); Potassium 3.5 mmol/L (3.5-5.1); Sodium 140 mmol/L (137-145); Total Bilirubin 0.7 mg/dL (0.2-1.3); Total Protein 7.5 g/dL (6.3-8.2)
[2023-08-05 05:27] LABS: INR 1.7 (<1.2); Partial Thromboplastin Time 48.9 sec (22.0-30.0); Prothrombin Time 17.6 sec (10.0-12.5)
[2023-08-05] MEDS ORDERED: Potassium Replacement Protocol 1 EACH MISC MISCELLANE PRN (05:29)
[2023-08-05] MEDS: POTASSIUM CHLORIDE 20 MEQ in WATER FOR INJECTION 1 100ML.BAG IVPB SCH (05:56)
[2023-08-05 06:40] LABS: Anisocytosis (M) Present; Rouleaux Present
[2023-08-05 06:50] LABS: Glucose,Whole Blood 174 mg/dL (70-110)
--- NOTE | 2023-08-05 08:23 | XR ---
EXAMINATION TYPE: XR chest 1V portable DATE OF EXAM: 08/05/2023 COMPARISON: 08/04/2023 HISTORY: Shortness of breath TECHNIQUE: Single frontal view of the chest is obtained. FINDINGS: NG tube seen coursing of the abdomen likely within the stomach. Bilateral patchy airspace disease is stable. No sizable pleural effusion on the right. Costophrenic angle on the left is not in cluded in the [id number]. Degenerative change of the spine. No sizable pneumothorax. Heart is enla rged. IMPRESSION: Stable diffuse bilateral airspace disease correlate for CHF otherwise consider diffuse p neumonia or atypical pneumonia.
--- NOTE | 2023-08-05 10:09 | P.PN ---
Subjective Patient is seen in follow-up for acute kidney injury. Renal function back to baseline. Receiving TPN. Remains on amiodarone drip. Vital signs are stable. General: Resting in bed. HEENT: On nasal cannula. Has NG tube. LUNGS: No audible rhonchi or wheezes. HEART: Rate and Rhythm are regular. ABDOMEN: Nontender. EXTREMITITES: Trace edema. Objective - Vital Signs Vital signs: Vital Signs Temp 100.2 F H 08/05/23 08:00 Pulse 91 08/05/23 09:00 Resp 20 08/05/23 09:00 BP 111/64 08/05/23 09:00 Pulse Ox 91 L 08/05/23 09:00 FiO2 Intake & Output 08/04/23 08/05/23 08/05/23 18:59 06:59 18:59 Intake Total 1640.841 933.37 599.731 Output Total 1945 800 190 Balance -304.159 133.37 409.731 Weight 78.8 kg 79.7 kg Intake: IV 666.67 933.37 350.004 0.9NS 50 120 10 Amiodarone 450 mg In 16.67 183.37 16.67 Dextrose 5% in Water 250 ml @ 0.5 MG/MIN 16.667 mls/hr IV .Q15H [facility] Rx#: [id number] Amiodarone 450 mg In 33.334 Dextrose 5% in Water 250 ml @ 0.5 MG/MIN 16.667 mls/hr IV .Q15H [facility] Rx#: [id number] Cefepime 2 gm In Sodium 100 Chloride 0.9% 100 ml @ 25 mls/hr IVPB Q12H [facility] Rx# :[id number] Lactated Ringers 1,000 ml 300 @ 50 mls/hr IV .Q20H [facility] Rx#:[id number] Mvi, Adult No.4 with Vit 330 90 K 10 ml Trace (Conc-1Ml/ Dose) 1 ml Sodium Acetate 30 meq Potassium Chloride 20 meq Magnesium Sulfate gm 0.5 gm In Amino Acids 5 %/Dextrose 20 % 1,000 ml @ 30 mls/hr IV .Q24H [facility] Rx#: [id number] Potassium Chloride 20 meq 100 100 In Water For Injection 1 100ml.bag @ 50 mls/hr IVPB Q2H [facility] Rx#: [id number] cefepime 100 metroNIDAZOLE-NS PMX 500 200 100 100 mg In Saline 1 100ml.bag @ 100 mls/hr IVPB Q8HR [facility] Rx#:[id number] Intake, IV Titration 304.171 249.727 Amount Amiodarone 450 mg In 204.171 249.727 Dextrose 5% in Water 250 ml @ 0.5 MG/MIN 16.667 mls/hr IV .Q15H [facility] Rx#: [id number] Magnesium Sulfate-D5w Pmx 100 1 gm In Dextrose/Water 1 100ml.bag @ 100 mls/hr IVPB ONCE ONE Rx#: [id number] Blood Product 310 Rc As-1 Unit 310 [id number] Other 360 Output: Gastric Drainage 900 250 Urine 945 550 190 Oral Regurgitation 100 Other: Voiding Method Indwelling Catheter Indwelling Catheter Indwelling Catheter - Labs CBC & Chem 7: 08/05/23 04:02 08/05/23 04:02 Labs: Abnormal Lab Results - Last 24 Hours (Table) 08/04/23 08/04/23 08/04/23 Range/Units 08:55 11:15 13:45 WBC 0.4 L* (3.8-10.6) k/uL RBC 2.54 L (3.80-5.40) m/uL Hgb 8.0 L D (11.4-16.0) gm/dL Hct 25.7 L (34.0-46.0) % MCV 101.3 H (80.0-100.0) fL RDW 20.9 H (11.5-15.5) % Plt Count 50 L (150-450) k/uL Macrocytosis Marked A PT (10.0-12.5) sec INR (<1.2) APTT (22.0-30.0) sec BUN (7-17) mg/dL Glucose (74-99) mg/dL POC Glucose (mg/dL) (70-110) mg/dL Hemoglobin A1c (<=6.0) % Phosphorus 4.9 H (2.5-4.5) mg/dL Albumin (3.5-5.0) g/dL Crossmatch See Detail 08/04/23 08/04/23 08/05/23 Range/Units 17:46 23:37 04:02 WBC (3.8-10.6) k/uL RBC (3.80-5.40) m/uL Hgb (11.4-16.0) gm/dL Hct (34.0-46.0) % MCV (80.0-100.0) fL RDW (11.5-15.5) % Plt Count (150-450) k/uL Macrocytosis PT (10.0-12.5) sec INR (<1.2) APTT (22.0-30.0) sec BUN (7-17) mg/dL Glucose (74-99) mg/dL POC Glucose (mg/dL) 121 H 153 H (70-110) mg/dL Hemoglobin A1c 6.1 H (<=6.0) % Phosphorus (2.5-4.5) mg/dL Albumin (3.5-5.0) g/dL Crossmatch 08/05/23 08/05/23 08/05/23 Range/Units 04:02 04:02 04:02 WBC 0.5 L* (3.8-10.6) k/uL RBC 2.26 L (3.80-5.40) m/uL Hgb 7.1 L (11.4-16.0) gm/dL Hct 22.8 L (34.0-46.0) % MCV 101.0 H (80.0-100.0) fL RDW 21.2 H (11.5-15.5) % Plt Count 50 L (150-450) k/uL Macrocytosis Marked A PT 17.6 H (10.0-12.5) sec INR 1.7 H (<1.2) APTT 48.9 H (22.0-30.0) sec BUN 24 H (7-17) mg/dL Glucose 152 H (74-99) mg/dL POC Glucose (mg/dL) (70-110) mg/dL Hemoglobin A1c (<=6.0) % Phosphorus (2.5-4.5) mg/dL Albumin 2.3 L (3.5-5.0) g/dL Crossmatch 08/05/23 Range/Units 06:48 WBC (3.8-10.6) k/uL RBC (3.80-5.40) m/uL Hgb (11.4-16.0) gm/dL Hct (34.0-46.0) % MCV (80.0-100.0) fL RDW (11.5-15.5) % Plt Count (150-450) k/uL Macrocytosis PT (10.0-12.5) sec INR (<1.2) APTT (22.0-30.0) sec BUN (7-17) mg/dL Glucose (74-99) mg/dL POC Glucose (mg/dL) 174 H (70-110) mg/dL Hemoglobin A1c (<=6.0) % Phosphorus (2.5-4.5) mg/dL Albumin (3.5-5.0) g/dL Crossmatch Assessment and Plan Plan: Assessment: 1. Acute kidney injury secondary to ATN secondary to septic shock. Resolved. No hydronephrosis noted on CAT scan. 2. Metabolic acidosis secondary to acute kidney injury status post bicarb drip. Improved. 3. Septic shock secondary to Enterobacter bacteremia on antibiotics. 4. Pancytopenia. Elevated kappa light chains. Oncology following. Bone marro w biopsy being considered. Status post blood transfusions this admission. 5. Small to moderate pericardial effusion. 6. Volume overload. Status post IV Lasix this admission. 7. A-fib with RVR maintained on amiodarone drip. Cardiology following. 8. Partial small bowel obstruction. Surgery following. 9. Hypokalemia from diuresis and poor intake. Plan: Potassium being replaced. Avoid nephrotoxins. Continue to monitor renal function and urine output. Case discussed with hematology oncology. Patient too unstable for bone marrow biopsy at this time. High suspicion for multiple myeloma. Transfer to [facility] being considered.
[2023-08-05] MEDS: FAT EMULSION 20% 250 ML in EMPTY BAG 1 BAG IV SCH (10:45)
--- NOTE | 2023-08-05 12:16 | P.PN ---
Subjective Progress Note Date: 08/05/23 Principal diagnosis: Acute neutropenic sepsis and neutropenic colitis 63-year-old female patient admitted to the intensive care unit with altered mentation, hypotension and acute kidney injury. The patient presented to the emergency department complaining of some back pain. She was altered, she was encephalopathic and weak. She was found to be hypotensive. She was given s everal fluid boluses and she remained hypotensive and the patient was started on pressors and currently she is on norepinephrine running at 0.1 mcg/kg/min. She was given a total of 4.5 L and currently 2 and a bicarb infusion running at 125 cc an hour. She is producing urine output. Noted that she had an acute kidney injury and the creatinine was elevated at 5.1 with a BUN of 68. Serum bicarb w as at 8 with a potassium level of 5.6 and a sodium levels at 129. She probably has chronic Myelodysplasia as the patient's white cell count was low at 1 with a hemoglobin 9.1 and a platelet count of 153./The patient has pancytopenia. No respiratory difficulties. No cough or sputum production. Chest x-ray showed no evidence of any pneumonia. CT angiogram of the chest showed no evidence of any pulmonary embolism. CAT scan of the abdomen and pelvis was also done that showed no acute abnormalities. There was a small pericardial effusion. Nonspecific right inguinal lymphadenopathy was noted. The patient is having an echocardiogram this morning. The blood gas showed a pH of 7.39 with a pCO2 of 27 and pO2 of 81 minutes with an FiO2 of 28%. Creatinine is on the decline and currently is down to 3.37 with a BUN of 55 and his sodium level is at 133. Free cortisol level is at 33.9. Free T4 is at 0.6 which is essentially low. LDH is not elevated. The viral panel including influenza, COVID-19 and RSV were negative. Coagulation profile was within normal. D-dimer was at 3.98. CT a ngiogram was negative for any pulmonary embolism. CAT scan of the brain was also done in the emergency department along with a CT scan of the cervical spine showed no evidence of any cervical fracture and no evidence of any intracranial abnormalities. Mild spondylosis at the level of C6-C7. No focal neurological deficit. She is able to answer simple commands upon repeated stimulation. CPK was at 33. Troponins were negative. She has previous history of pulm embolism maintained on anticoagulation with Eliquis and this was placed on hold and the patient was started on IV heparin. She was also started empirically on a combination of Zosyn and vancomycin pending further cultures. 07/31/2023, the patient is being seen for a follow-up. Awake and alert and communicating. Continues to have back pain and MRI of the lumbar spine has been ordered. Meanwhile, the patient remains on IV fluids. The patient is on a bicarb infusion at the rate of 125 cc an hour. She also received a unit of packed RBC regarding a drop in hemoglobin down to 6.8 and the follow-up hemoglobin is currently at 8. She remains neutropenic with a white cell count of 0.8 and the patient is also septic and the blood cultures is positive for Enterobacter species. The patient is currently on IV cefepime. She remains on no pressors at this point. She did have an episode of atrial fibrillation yesterday. She was briefly placed on Cardizem at 10 mg an hour and she was given a bolus. She is back into normal sinus rhythm. She is maintained currently on amiodarone at 1 mg/min. In terms of her renal function, the patient's creatinine is improving. BUN is down to 35 with a creatinine of 1.55 and a sodium levels at 133 with a potassium level of 2.5. Oxygenation is stable and the patient is currently on 2 L of O2 nasal cannula with a pulse ox of 95%. Platelet count is also low at 67. A workup regarding this pancytopenia has been initiated. It is also still pending for now. Hepatitis profile has been negative. Iron levels were low and the patient was started on IV iron in addition. 08/01/2023, patient is being seen for a follow-up. The patient is awake and alert. She is complaining of abdominal pain abdominal distention that has developed over the past 24 hours. Noted the patient is neutropenic with a white cell count of 0.6 and the hemoglobin today is at 7.6. Platelet count is at 45. She had gram-negative sepsis and the patient remains on IV cefepime. She is off pressors. Cardiac rhythm is sinus. Function is improved and the follow-up blood work from today shows a BUN of 22 with a creatinine of 0.8 and a sodium noted at 134 and a potassium level is at 4.3. Lactic acid level is at 1.5. The patient is being seen by hematology oncology. This is regarding her pancytopenia. The total serum protein was 6.4. Her free kappa light chains were elevated at 35.2. RIP and rheumatoid factor were negative. MRI of the back is also pending for now. No confusion. No altered mentation. She is awake and alert and communicating. 08/02/2023, patient's condition is essentially unchanged. Probably slightly worse in terms of her abdominal distention. No flatus. No bowel movement activity. No nausea or vomiting. No reported fever or chills. CAT scan of the abdomen was done yesterday minutes was consistent with markedly dilated air and fluid filled loops of the colon. There was a long segment of the sigmoid colon that was thickened and the patient also had dilated bowel in the proximal segments. There was moderate fluid in the cul-de-sac. No intraperitoneal air. Scattered groundglass pulmonary infiltrates in the lung base bilaterally. As such, there was evidence of acute sigmoid wall inflammation consistent with colitis. No diverticulitis. No neoplasm. The patient continues to be pancytopenic. The white cell count today is at 0.5. Hemoglobin is at 6.7 and a platelet count of 45. Limited input from hematology oncology. No immediate plans for biopsy of the bone marrow. Suspicious findings for myeloma. Repeat blood cultures have been negative. The patient is going to receive unit of packed RBC today. BUN is at 21 with a creatinine of 0.8 and a sodium levels at 133. The cardiac rhythm is sinus. The patient remains on a combination of cefe pime and vancomycin. The electrolytes are all within normal limits. Hemodynamically stable and the patient is currently on 5 L of oxygen by nasal cannula with a pulse ox of 95%. 08/03/2023, the patient is being seen for a follow-up. The patient essentially unchanged compared to yesterday. Continues to have abdominal pain which is rather diffuse consistent with colitis given this is neutropenic colitis. The patient is hemodynamically stable on no pressors. NG tube is in place. Total amount of output was 1.1 L over the past 24 hours and the patient remains on amiodarone drip at 0.5 mg/min and the cardiac rhythm is sinus. Fluid balance has been +1.3 L and the patient is on lactated Ringer at rate of 100 cc an hour. She is on oxygen at 5 L/min nasal cannula. White cell count is 0.5, hemoglobin is at 7.5 and a platelet count is 48. BUN is at 17 with a creatinine of 0.8 and a sodium levels at 135. She is lethargic. She is weak. She is quite debilitated. Patient was reevaluated today on 08/04/2023, patient was seen in the ICU, she is on 10 L high flow nasal cannula, she is still requiring norepinephrine, low-dose for maintaining adequate blood pressure. Patient is still on amiodarone 0.5 mg/min, lactated Ringer's at 50 cc/h, hemoglobin is low today at 6.3 and the patient will receive blood transfusion. Continues to have abdominal distention nasogastric tube remains in place, blood cultures positive for Enterobacter cloacae. Patient is having a Gastrografin study today. Hematology is addressing the possibility of multiple myeloma or myelodysplastic syndrome, patient is on cefepime and Flagyl for treatment of her bacteremia. And her colitis. Patient was admitted initially on 07/28 with back pain and abdominal pain, patient has received a total of 3 units of packed RBCs since admission. Patient was seen by general surgery on consultation who felt that the patient is a very high surgical risk, and recommended potential transfer out of the ICU to a tertiary care center. However patient was not accepted at [facility], and I believe the primary admitting service is working on potential transfer to another tertiary care facility. Today I discussed her status with oncologist, considering bone marrow biopsy, but the patient is too ill for biopsy at this point. Surgery is on board, not considering any surgical intervention at this point. Although the patient may eventually require surgical intervention. Labs today are all abnormal WBC count is 0.5 hemoglobin 6.3 platelets are 51,000, basic metabolic profile is normal renal profile is normal, liver profile is normal chest x-ray is showing bilateral airspace disease and small effusion consistent with interstitial pneumonia Patient was reevaluated today on 08/05/2023, patient remains in the ICU, patient continues to have abdominal distention, remains on 11 L high flow nasal cannula remains on antibiotics/cefepime remains on TPN at 30 cc/h she is also on amiodarone at 0.5 mg/min. Chest x-ray is showing evidence of diffuse interstitial lung disease consistent with ARDS. Labs remain quite abnormal WBC 0.5 hemoglobin 7.1 platelets are 50,000's. No evidence of active bleeding. Her INR is 1.7 fibrinogen is 434. Basic metabolic profile is normal renal profile is normal, small bowel follow-through is suggestive of high-grade bowel obstruction, patient was evaluated again by surgery felt that the patient needs to have surgical intervention, however because of her hematological issues, surgery is quite concerned about the overall picture and the prognosis. Hand surgery is recommending referral to a tertiary care center, patient was accepted at [facility] to be transferred sometime today clinically I believe the patient is very high risk for any intervention, and her overall clinical status is very marginal at best patient has received a total of 3 units of packed RBCs since admission hemoglobin today is 7.1 blood cultures have been positive for Enterobacter cloacae and the patient remains on cefepime for now Objective - Vital Signs Vital signs: Vital Signs Temp 99.6 F 08/05/23 10:00 Pulse 96 08/05/23 10:00 Resp 20 08/05/23 09:00 BP 113/68 08/05/23 10:00 Pulse Ox 92 L 08/05/23 10:00 FiO2 Intake & Output 08/04/23 08/05/23 08/05/23 18:59 06:59 18:59 Intake Total 1640.841 933.37 681.398 Output Total 1945 800 235 Balance -304.159 133.37 446.398 Weight 78.8 kg 79.7 kg Intake: IV 666.67 933.37 431.671 0.9NS 50 120 20 Amiodarone 450 mg In 16.67 183.37 16.67 Dextrose 5% in Water 250 ml @ 0.5 MG/MIN 16.667 mls/hr IV .Q15H [facility] Rx#: [id number] Amiodarone 450 mg In 50.001 Dextrose 5% in Water 250 ml @ 0.5 MG/MIN 16.667 mls/hr IV .Q15H [facility] Rx#: [id number] Cefepime 2 gm In Sodium 100 25 Chloride 0.9% 100 ml @ 25 mls/hr IVPB Q12H [facility] Rx# :[id number] Lactated Ringers 1,000 ml 300 @ 50 mls/hr IV .Q20H [facility] Rx#:[id number] Mvi, Adult No.4 with Vit 330 120 K 10 ml Trace (Conc-1Ml/ Dose) 1 ml Sodium Acetate 30 meq Potassium Chloride 20 meq Magnesium Sulfate gm 0.5 gm In Amino Acids 5 %/Dextrose 20 % 1,000 ml @ 30 mls/hr IV .Q24H [facility] Rx#: [id number] Potassium Chloride 20 meq 100 100 In Water For Injection 1 100ml.bag @ 50 mls/hr IVPB Q2H [facility] Rx#: [id number] cefepime 100 metroNIDAZOLE-NS PMX 500 200 100 100 mg In Saline 1 100ml.bag @ 100 mls/hr IVPB Q8HR [facility] Rx#:[id number] Intake, IV Titration 304.171 249.727 Amount Amiodarone 450 mg In 204.171 249.727 Dextrose 5% in Water 250 ml @ 0.5 MG/MIN 16.667 mls/hr IV .Q15H [facility] Rx#: [id number] Magnesium Sulfate-D5w Pmx 100 1 gm In Dextrose/Water 1 100ml.bag @ 100 mls/hr IVPB ONCE ONE Rx#: [id number] Blood Product 310 Rc As-1 Unit 310 [id number] Other 360 Output: Gastric Drainage 900 250 Urine 945 550 235 Oral Regurgitation 100 Other: Voiding Method Indwelling Catheter Indwelling Catheter Indwelling Catheter - Exam GENERAL EXAM: Alert, 63-year-old white female, complaining of abdominal discomfort and distention, patient has nasogastric tube in place, she is on 11 L high flow nasal cannula HEAD: Normocephalic and atraumatic EYES: Normal reaction of pupils, equal size. NOSE: Clear with pink turbinates. Gastric tube is in place. THROAT: No erythema or exudates. NECK: No masses, no JVD. CHEST: No chest wall deformity. LUNGS: Crackles noted bilaterally CVS: Normal S1-S2, no S3 gallop, no murmur. ABDOMEN: Distended abdomen, diffuse abdominal tenderness is noted, diminished bowel sounds SKIN: No rashes CENTRAL NERVOUS SYSTEM: Alert and oriented x 3 no gross focal deficits. EXTREMITIES: There is no peripheral edema, clubbing, or cyanosis. Peripheral pulses are intact. - Labs CBC & Chem 7: 08/05/23 04:02 08/05/23 04:02 Labs: Abnormal Lab Results - Last 24 Hours (Table) 08/04/23 08/04/23 08/04/23 Range/Units 08:55 11:15 13:45 WBC 0.4 L* (3.8-10.6) k/uL RBC 2.54 L (3.80-5.40) m/uL Hgb 8.0 L D (11.4-16.0) gm/dL Hct 25.7 L (34.0-46.0) % MCV 101.3 H (80.0-100.0) fL RDW 20.9 H (11.5-15.5) % Plt Count 50 L (150-450) k/uL Macrocytosis Marked A PT (10.0-12.5) sec INR (<1.2) APTT (22.0-30.0) sec BUN (7-17) mg/dL Glucose (74-99) mg/dL POC Glucose (mg/dL) (70-110) mg/dL Hemoglobin A1c (<=6.0) % Phosphorus 4.9 H (2.5-4.5) mg/dL Albumin (3.5-5.0) g/dL Crossmatch See Detail 08/04/23 08/04/23 08/05/23 Range/Units 17:46 23:37 04:02 WBC (3.8-10.6) k/uL RBC (3.80-5.40) m/uL Hgb (11.4-16.0) gm/dL Hct (34.0-46.0) % MCV (80.0-100.0) fL RDW (11.5-15.5) % Plt Count (150-450) k/uL Macrocytosis PT (10.0-12.5) sec INR (<1.2) APTT (22.0-30.0) sec BUN (7-17) mg/dL Glucose (74-99) mg/dL POC Glucose (mg/dL) 121 H 153 H (70-110) mg/dL Hemoglobin A1c 6.1 H (<=6.0) % Phosphorus (2.5-4.5) mg/dL Albumin (3.5-5.0) g/dL Crossmatch 08/05/23 08/05/23 08/05/23 Range/Units 04:02 04:02 04:02 WBC 0.5 L* (3.8-10.6) k/uL RBC 2.26 L (3.80-5.40) m/uL Hgb 7.1 L (11.4-16.0) gm/dL Hct 22.8 L (34.0-46.0) % MCV 101.0 H (80.0-100.0) fL RDW 21.2 H (11.5-15.5) % Plt Count 50 L (150-450) k/uL Macrocytosis Marked A PT 17.6 H (10.0-12.5) sec INR 1.7 H (<1.2) APTT 48.9 H (22.0-30.0) sec BUN 24 H (7-17) mg/dL Glucose 152 H (74-99) mg/dL POC Glucose (mg/dL) (70-110) mg/dL Hemoglobin A1c (<=6.0) % Phosphorus (2.5-4.5) mg/dL Albumin 2.3 L (3.5-5.0) g/dL Crossmatch 08/05/23 Range/Units 06:48 WBC (3.8-10.6) k/uL RBC (3.80-5.40) m/uL Hgb (11.4-16.0) gm/dL Hct (34.0-46.0) % MCV (80.0-100.0) fL RDW (11.5-15.5) % Plt Count (150-450) k/uL Macrocytosis PT (10.0-12.5) sec INR (<1.2) APTT (22.0-30.0) sec BUN (7-17) mg/dL Glucose (74-99) mg/dL POC Glucose (mg/dL) 174 H (70-110) mg/dL Hemoglobin A1c (<=6.0) % Phosphorus (2.5-4.5) mg/dL Albumin (3.5-5.0) g/dL Crossmatch Assessment and Plan Assessment: Impression: Acute neutropenic sepsis Acute neutropenic colitis/sigmoid colitis Pancytopenia, being addressed by oncology Acute metabolic encephalopathy Septic shock and bacteremia secondary to Enterobacter cloacae Acute kidney injury Electrolytes imbalance including hyponatremia and hyperkalemia, resolved Mild systolic congestive heart failure, ejection fraction 40 to 45% Small pericardial effusion noted on CT of the chest paroxysmal atrial fibrillation on amiodarone Low back pain awaiting MRI of the lumbar spine. History of bipolar disorder. Recommendation: Strongly recommend transfer to [facility] now that the surgeon clearly determined that the patient is high risk for surgery and she does have high- small bowel grade obstruction Continue oxygen and titrate accordingly Continue antibiotics including cefepime and Flagyl Continue Crockett catheter Continue nasogastric tube Reviewed the surgical recommendation and small bowel follow-through study Strongly believe that the patient will be better off for a tertiary care center, transfer plans are in progress Continue to monitor in the ICU Patient remains critically ill.. Critical care time is over 30 minutes Prognosis is extremely poor and guarded. Time with Patient: Greater than 30
--- NOTE | 2023-08-05 12:58 | P.PN ---
Subjective Progress Note Date: 08/05/23 Patient is a 63-year-old female with history of pulmonary embolism anticoagulated with Eliquis, GI bleed, GERD, and bipolar disorder who presented to the emergency room with complaints of back pain. On arrival to the emergency department her initial vital signs showed blood pressure of 98/57 however 45 minutes later she had a pulse of 124 with a blood pressure of 73/48. Initial laboratory analysis was remarkable for white blood cell count of 9, hemoglobin 9.1, INR 1.3, D-dimer 3.32, sodium 129, potassium 5.6, carbon dioxide 8, BUN 68, creatinine 5.13, AST 71, ALT 110. Initial urinalysis was negative. Patient had been given 2 L of fluid in the emergency department but remained hypotensive. Patient was called for admission. Her CT head and cervical spine then resulted with no acute intracranial abnormality but cervical spondylosis most progressed at C6-C7. CT chest abdomen and pelvis demonstrated nonspecific right inguinal adenopathy, superior endplate fracture of L3 likely Schmorl's node with clinical correlation recommended. She was given an additional 1 L fluid bolus and started on D5W with 3 A of bicarb. Nephrology was contacted. Arrangements were made for the patient to be admitted to the ICU. She was started on empiric Vanco and Zosyn due to refractory hypotension and shock, in conjunction with neutropenia. Critical care was consulted. Patient began to require norepinephrine. She was found to have Enterobacter bacteremia and antibiotics were streamlined to cefepime. Infectious disease was consulted.Repeat CBC on the patient showed a hemoglobin down to 6.6. 1 unit of packed red blood cells was ordered. Patient went into atrial fibrillation with rapid ventricular response and was initially given Cardizem and then placed on amiodarone bolus. She was more awake and alert by the morning of 07/31/23. Her vasopressors were able to be weaned on 08/01/23. Repeat CT abdomen pelvis shows moderate groundglass densities in the lung bases, long segment of markedly thickened sigmoid colon with proximal marked dilatation of the colon with air and fluid consistent with partial large bowel obstruction, likely acute sigmoid colitis or diverticulitis, neoplasm not entirely excluded. Continues to remain pancytopenic, requiring another unit of PRBCs on 08/01. Surgery was consulted. NG tube placed. Small bowel follow-through showed high-grade bowel obstruction. Surgery team recommending transfer to tertiary care center. Patient accepted by [facility], attending is Dr. Phelps. Patient seen and examined at bedside. Still has periods of confusion. Denies any chest pain, abdominal pain, nausea, vomiting. No bowel movements. Urinary catheter in place. No active bleeding, NG tube in place. Vital signs reviewed General: Chronically ill appearing, no distress, appears at stated age Chest: Large chest wall nodule next to breast augmentation from prior rupture, mildly tender to palpation Cardiovascular: S1S2 reg, no murmur Lungs: Decreased bs bilateral, no rhonchi, no rales, no accessory muscle use Abdominal: soft, mildly tender to palpation, no guarding, NG tube in place Ext: no gross muscle atrophy, no edema b/l lower extremities, no contractures Neuro: CN II-XI grossly intact, no focal neuro deficits Psych: Alert, oriented x2, appropriate affect Assessment/Plan: High-grade bowel obstruction Acute sigmoid colitis Neutroepnic sepsis Pancytopenia Septic Shock, resolved Enterobacter cloacae bacteremia Acute hypoxic respiratory failure Acute systolic CHF exacerbation - off pressors -Cefepime 1 g every 12 hours D #7 - Flagyl 500 mg IV every 8 hours day #5 ICU note reviewed, agreed with transfer -Continue to wean oxygen Patient received IV Lasix yesterday -ID following -Repeat blood culture from 07/30 negative growth to date -Surgery following, recommending surgical intervention at tertiary care center - NG tube in place for gastric decompression, as well as on TPN Pancytopenia with neutropenia, anemia, and now thrombocytopenia Bipolar disorder -Status post 3 units of PRBCs -Allergy following, continue filgrastim, IVIG, will likely need bone marrow biopsy once stable -Trileptal decreased to 100 3 times daily, due to potential risk for pancytopenia, on Seroquel for 400 daily which is also a reduced dose Acute kidney injury, resolved Hyponatremia. improved Hypokalemia, resolved -Nephrology note reviewed, continue current care -Continue monitor BMP Paroxysmal atrial fibrillation with rapid ventricular response Cardiomyopathy with ejection fraction 40 to 45% -Cardiology note reviewed, recommending continuing amiodarone drip -Anticoagulation currently on hold due to platelets less than 50 -Echocardiogram obtained 07/29 which showed ejection fraction of 40 to 45% - not a candidate for GDMT due to low blood pressures Hx of Pulmonary embolism - hold AC due to plt less than 50 Hypomagnesemia, resolved Endplate fracture L3, possible Schmorl's nodeMRI pending Hyperkalemia, resolved Anion gap metabolic acidosis, resolved Imaging: CT abdomen and pelvis reviewed: Possible partial large bowel obstruction likely secondary to acute sigmoid wall inflammation from IBD or diverticulitis. Neoplasm not completely excluded. 2.8 cm mass in the right superficial inguinal region suspicious for reactive lymphadenopathy. Data Review: WBC 0.5, hemoglobin 7.1, platelet 50, INR 1.7, creatinine 0.83, blood sugars range between 1 21-1 74 chest x-ray independently interpreted, shows interstitial opacities DVT prophylaxis: SCDs Anticipated discharge date: Pending Clinical Course Anticipated discharge place: Pending Clinical Course Objective - Vital Signs Vital signs: Vital Signs Temp 99.6 F 08/05/23 10:00 Pulse 96 08/05/23 10:00 Resp 20 08/05/23 09:00 BP 113/68 08/05/23 10:00 Pulse Ox 92 L 08/05/23 10:00 FiO2 Intake & Output 08/04/23 08/05/23 08/05/23 18:59 06:59 18:59 Intake Total 1640.841 933.37 681.398 Output Total 1945 800 235 Balance -304.159 133.37 446.398 Weight 78.8 kg 79.7 kg Intake: IV 666.67 933.37 431.671 0.9NS 50 120 20 Amiodarone 450 mg In 16.67 183.37 16.67 Dextrose 5% in Water 250 ml @ 0.5 MG/MIN 16.667 mls/hr IV .Q15H [facility] Rx#: [id number] Amiodarone 450 mg In 50.001 Dextrose 5% in Water 250 ml @ 0.5 MG/MIN 16.667 mls/hr IV .Q15H [facility] Rx#: [id number] Cefepime 2 gm In Sodium 100 25 Chloride 0.9% 100 ml @ 25 mls/hr IVPB Q12H [facility] Rx# :[id number] Lactated Ringers 1,000 ml 300 @ 50 mls/hr IV .Q20H [facility] Rx#:[id number] Mvi, Adult No.4 with Vit 330 120 K 10 ml Trace (Conc-1Ml/ Dose) 1 ml Sodium Acetate 30 meq Potassium Chloride 20 meq Magnesium Sulfate gm 0.5 gm In Amino Acids 5 %/Dextrose 20 % 1,000 ml @ 30 mls/hr IV .Q24H [facility] Rx#: [id number] Potassium Chloride 20 meq 100 100 In Water For Injection 1 100ml.bag @ 50 mls/hr IVPB Q2H [facility] Rx#: [id number] cefepime 100 metroNIDAZOLE-NS PMX 500 200 100 100 mg In Saline 1 100ml.bag @ 100 mls/hr IVPB Q8HR [facility] Rx#:[id number] Intake, IV Titration 304.171 249.727 Amount Amiodarone 450 mg In 204.171 249.727 Dextrose 5% in Water 250 ml @ 0.5 MG/MIN 16.667 mls/hr IV .Q15H [facility] Rx#: [id number] Magnesium Sulfate-D5w Pmx 100 1 gm In Dextrose/Water 1 100ml.bag @ 100 mls/hr IVPB ONCE ONE Rx#: [id number] Blood Product 310 Rc As-1 Unit 310 [id number] Other 360 Output: Gastric Drainage 900 250 Urine 945 550 235 Oral Regurgitation 100 Other: Voiding Method Indwelling Catheter Indwelling Catheter Indwelling Catheter - Labs CBC & Chem 7: 08/05/23 04:02 08/05/23 04:02 Labs: Abnormal Lab Results - Last 24 Hours (Table) 08/04/23 08/04/23 08/04/23 Range/Units 08:55 11:15 13:45 WBC 0.4 L* (3.8-10.6) k/uL RBC 2.54 L (3.80-5.40) m/uL Hgb 8.0 L D (11.4-16.0) gm/dL Hct 25.7 L (34.0-46.0) % MCV 101.3 H (80.0-100.0) fL RDW 20.9 H (11.5-15.5) % Plt Count 50 L (150-450) k/uL Macrocytosis Marked A PT (10.0-12.5) sec INR (<1.2) APTT (22.0-30.0) sec BUN (7-17) mg/dL Glucose (74-99) mg/dL POC Glucose (mg/dL) (70-110) mg/dL Hemoglobin A1c (<=6.0) % Phosphorus 4.9 H (2.5-4.5) mg/dL Albumin (3.5-5.0) g/dL Crossmatch See Detail 08/04/23 08/04/23 08/05/23 Range/Units 17:46 23:37 04:02 WBC (3.8-10.6) k/uL RBC (3.80-5.40) m/uL Hgb (11.4-16.0) gm/dL Hct (34.0-46.0) % MCV (80.0-100.0) fL RDW (11.5-15.5) % Plt Count (150-450) k/uL Macrocytosis PT (10.0-12.5) sec INR (<1.2) APTT (22.0-30.0) sec BUN (7-17) mg/dL Glucose (74-99) mg/dL POC Glucose (mg/dL) 121 H 153 H (70-110) mg/dL Hemoglobin A1c 6.1 H (<=6.0) % Phosphorus (2.5-4.5) mg/dL Albumin (3.5-5.0) g/dL Crossmatch 08/05/23 08/05/23 08/05/23 Range/Units 04:02 04:02 04:02 WBC 0.5 L* (3.8-10.6) k/uL RBC 2.26 L (3.80-5.40) m/uL Hgb 7.1 L (11.4-16.0) gm/dL Hct 22.8 L (34.0-46.0) % MCV 101.0 H (80.0-100.0) fL RDW 21.2 H (11.5-15.5) % Plt Count 50 L (150-450) k/uL Macrocytosis Marked A PT 17.6 H (10.0-12.5) sec INR 1.7 H (<1.2) APTT 48.9 H (22.0-30.0) sec BUN 24 H (7-17) mg/dL Glucose 152 H (74-99) mg/dL POC Glucose (mg/dL) (70-110) mg/dL Hemoglobin A1c (<=6.0) % Phosphorus (2.5-4.5) mg/dL Albumin 2.3 L (3.5-5.0) g/dL Crossmatch 08/05/23 Range/Units 06:48 WBC (3.8-10.6) k/uL RBC (3.80-5.40) m/uL Hgb (11.4-16.0) gm/dL Hct (34.0-46.0) % MCV (80.0-100.0) fL RDW (11.5-15.5) % Plt Count (150-450) k/uL Macrocytosis PT (10.0-12.5) sec INR (<1.2) APTT (22.0-30.0) sec BUN (7-17) mg/dL Glucose (74-99) mg/dL POC Glucose (mg/dL) 174 H (70-110) mg/dL Hemoglobin A1c (<=6.0) % Phosphorus (2.5-4.5) mg/dL Albumin (3.5-5.0) g/dL Crossmatch
[2023-08-05 13:57] LABS: Glucose,Whole Blood 176 mg/dL (70-110)
--- NOTE | 2023-08-05 14:17 | P.PN ---
Subjective Progress Note Date: 08/05/23 Patient remains in ICU. BP stable, continues off pressors. Pt still very lethargic. Abd pain and tenderness persisting. Bilious NG outpt, no reported episodes of acute bleeding. WBC 500, Hemoglobin 7.1, platelets 50,000. Continues on IV abx. [facility] has accepted admission, awaiting bed availability for transfer Objective - Vital Signs Vital signs: Vital Signs Temp 99.6 F 08/05/23 10:00 Pulse 96 08/05/23 10:00 Resp 20 08/05/23 09:00 BP 113/68 08/05/23 10:00 Pulse Ox 92 L 08/05/23 10:00 FiO2 Intake & Output 08/04/23 08/05/23 08/05/23 18:59 06:59 18:59 Intake Total 1640.841 933.37 681.398 Output Total 1945 800 235 Balance -304.159 133.37 446.398 Weight 78.8 kg 79.7 kg Intake: IV 666.67 933.37 431.671 0.9NS 50 120 20 Amiodarone 450 mg In 16.67 183.37 16.67 Dextrose 5% in Water 250 ml @ 0.5 MG/MIN 16.667 mls/hr IV .Q15H [facility] Rx#: [id number] Amiodarone 450 mg In 50.001 Dextrose 5% in Water 250 ml @ 0.5 MG/MIN 16.667 mls/hr IV .Q15H [facility] Rx#: [id number] Cefepime 2 gm In Sodium 100 25 Chloride 0.9% 100 ml @ 25 mls/hr IVPB Q12H [facility] Rx# :[id number] Lactated Ringers 1,000 ml 300 @ 50 mls/hr IV .Q20H [facility] Rx#:[id number] Mvi, Adult No.4 with Vit 330 120 K 10 ml Trace (Conc-1Ml/ Dose) 1 ml Sodium Acetate 30 meq Potassium Chloride 20 meq Magnesium Sulfate gm 0.5 gm In Amino Acids 5 %/Dextrose 20 % 1,000 ml @ 30 mls/hr IV .Q24H [facility] Rx#: [id number] Potassium Chloride 20 meq 100 100 In Water For Injection 1 100ml.bag @ 50 mls/hr IVPB Q2H [facility] Rx#: [id number] cefepime 100 metroNIDAZOLE-NS PMX 500 200 100 100 mg In Saline 1 100ml.bag @ 100 mls/hr IVPB Q8HR [facility] Rx#:[id number] Intake, IV Titration 304.171 249.727 Amount Amiodarone 450 mg In 204.171 249.727 Dextrose 5% in Water 250 ml @ 0.5 MG/MIN 16.667 mls/hr IV .Q15H [facility] Rx#: [id number] Magnesium Sulfate-D5w Pmx 100 1 gm In Dextrose/Water 1 100ml.bag @ 100 mls/hr IVPB ONCE ONE Rx#: [id number] Blood Product 310 Rc As-1 Unit 310 [id number] Other 360 Output: Gastric Drainage 900 250 Urine 945 550 235 Oral Regurgitation 100 Other: Voiding Method Indwelling Catheter Indwelling Catheter Indwelling Catheter - Constitutional General appearance: Present: no acute distress - EENT ENT: Present: hearing grossly normal - Respiratory Details: breathing even and unlabored - Cardiovascular Details: Skin warm and dry - Gastrointestinal General gastrointestinal: Present: distended, tenderness Localized gastrointestinal: tender: diffuse - Integumentary Integumentary: Present: pale - Neurologic Neurologic Comment(s): Somnolent - Musculoskeletal Musculoskeletal: Present: generalized weakness - Labs CBC & Chem 7: 08/05/23 04:02 08/05/23 04:02 Labs: Abnormal Lab Results - Last 24 Hours (Table) 08/04/23 08/04/23 08/04/23 Range/Units 08:55 11:15 13:45 WBC 0.4 L* (3.8-10.6) k/uL RBC 2.54 L (3.80-5.40) m/uL Hgb 8.0 L D (11.4-16.0) gm/dL Hct 25.7 L (34.0-46.0) % MCV 101.3 H (80.0-100.0) fL RDW 20.9 H (11.5-15.5) % Plt Count 50 L (150-450) k/uL Macrocytosis Marked A PT (10.0-12.5) sec INR (<1.2) APTT (22.0-30.0) sec BUN (7-17) mg/dL Glucose (74-99) mg/dL POC Glucose (mg/dL) (70-110) mg/dL Hemoglobin A1c (<=6.0) % Phosphorus 4.9 H (2.5-4.5) mg/dL Albumin (3.5-5.0) g/dL Crossmatch See Detail 08/04/23 08/04/23 08/05/23 Range/Units 17:46 23:37 04:02 WBC (3.8-10.6) k/uL RBC (3.80-5.40) m/uL Hgb (11.4-16.0) gm/dL Hct (34.0-46.0) % MCV (80.0-100.0) fL RDW (11.5-15.5) % Plt Count (150-450) k/uL Macrocytosis PT (10.0-12.5) sec INR (<1.2) APTT (22.0-30.0) sec BUN (7-17) mg/dL Glucose (74-99) mg/dL POC Glucose (mg/dL) 121 H 153 H (70-110) mg/dL Hemoglobin A1c 6.1 H (<=6.0) % Phosphorus (2.5-4.5) mg/dL Albumin (3.5-5.0) g/dL Crossmatch 08/05/23 08/05/23 08/05/23 Range/Units 04:02 04:02 04:02 WBC 0.5 L* (3.8-10.6) k/uL RBC 2.26 L (3.80-5.40) m/uL Hgb 7.1 L (11.4-16.0) gm/dL Hct 22.8 L (34.0-46.0) % MCV 101.0 H (80.0-100.0) fL RDW 21.2 H (11.5-15.5) % Plt Count 50 L (150-450) k/uL Macrocytosis Marked A PT 17.6 H (10.0-12.5) sec INR 1.7 H (<1.2) APTT 48.9 H (22.0-30.0) sec BUN 24 H (7-17) mg/dL Glucose 152 H (74-99) mg/dL POC Glucose (mg/dL) (70-110) mg/dL Hemoglobin A1c (<=6.0) % Phosphorus (2.5-4.5) mg/dL Albumin 2.3 L (3.5-5.0) g/dL Crossmatch 08/05/23 Range/Units 06:48 WBC (3.8-10.6) k/uL RBC (3.80-5.40) m/uL Hgb (11.4-16.0) gm/dL Hct (34.0-46.0) % MCV (80.0-100.0) fL RDW (11.5-15.5) % Plt Count (150-450) k/uL Macrocytosis PT (10.0-12.5) sec INR (<1.2) APTT (22.0-30.0) sec BUN (7-17) mg/dL Glucose (74-99) mg/dL POC Glucose (mg/dL) 174 H (70-110) mg/dL Hemoglobin A1c (<=6.0) % Phosphorus (2.5-4.5) mg/dL Albumin (3.5-5.0) g/dL Crossmatch Assessment and Plan (1) Gram-negative bacteremia Current Visit: Yes Status: Acute Priority: High Code(s): R78.81 - BACTEREMIA SNOMED Code(s): 406126521711 (2) Pancytopenia Current Visit: Yes Status: Acute Priority: High Code(s): D61.818 - OTHER PANCYTOPENIA SNOMED Code(s): 644775793 (3) Macrocytic anemia with vitamin B12 deficiency Current Visit: Yes Status: Chronic Priority: Medium Code(s): D51.8 - OTHER VITAMIN B12 DEFICIENCY ANEMIAS SNOMED Code(s): 01914685 (4) Neutropenic colitis Current Visit: Yes Status: Suspected Priority: High Code(s): D70.9 - NEUTROPENIA, UNSPECIFIED; K52.89 - OTHER SPECIFIED NONINFECTIVE GASTROENTERITIS AND COLITIS SNOMED Code(s): 716952711 Plan: Pancytopenia, macrocytic anemia and B12 deficiency -Hemoglobin 7.1 today, s/p 1 unit PRBCs. Transfuse for hemoglobin less than 7 or if patient is symptomatic. CBC daily -Platelets 50,000, stable. Transfuse for plt <10,000 or if symptomatic, or <50,000 if anticoagulated. -Lab work up consistent with IgA [place] paraproteinemia, underlying cause for pancytopenia. Sepsis further contributing to pancytopenia, as well as medication effects on bone marrow. -Bone marrow biopsy was discussed with pt late last week. Would like pt to be more stable before proceeding with the same. -Case discussed with Critical Care team and IM today. Doing a bone marrow biospy will not change the acute mgmt of this pt. She is septic and requires treatment of the same. She needs mgmt of her bowel. MM diagnosis will require treatment but, in any pt with MM, acute infections/emergent medical conditions need to be treated first. MM patients commonly present with very low counts and infection and treatment is not usually initiated until acute condition managed. If pt requires transfer then it will be because of tertiary mgmt of acute bowel condition. Transfusion recs remain the same as above. If plans for any procedures please contact Hematology directly for recommendations. 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 IVIG given Abdominal pain, neutropenia -Concerns for abd pain and distension. Neutropenic colitis concerning with low ANC. GCSF is ordered and being given. -Abd cont to be distended today, worse then last week. Recommend additional imaging. -NPO with NG tube PE -Diagnosed May. Been on eliquis for the same -Concerns for bleeding, low platelets. Anticoagluation was held, today pt is auto-anticoagulated. Coags and CBC daily. -Cont SCDs for DVT prophylaxis. Auto-anticoagulated -INR 1.7 today. Fibrinogen normal. Negative for DIC -Cont to monitor coags in acutely ill patient. -Reverse INR if INR > 1.5 and plt <50,000 or if acutely bleeding Ms. Sanchez has had a complicated medical course characterized by pancytopenia, septic shock, and atrial fibrillation with RVR due to enterobacter bacteremia. Moreover, she is having progressive abdominal pain with distention due to partia l bowel obstruction in sigmoid colon. Appropriate hematology workup has revealed IgA kappa paraproteinemia, likely consistent with multiple myeloma. 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 There is no doubt she will require a bone marrow biopsy to confirm this diagnosis. Bone marrow biopsy in this scenario reveals percentage of plasma cells in bone marrow as well as risk stratify her myeloma based on cytogenetics and FISH. While very useful, this information will not help treat her bacteremia or alleviate her bowel obstruction. Treating these acute issues should be the priority at this time. Transfer to tertiary center may become indicated for management of her acute medical condition, but not for additional hematology workup. If there are any questions in regards to her hematologic condition or workup performed, please do not hesitate to contact us. Yaya Peace MD Dr. Attests: I have seen and examined pt, performed H&P, developed impression and plan of care. Discussed with dictator. Agree with documentation, dictated as a scribe.
--- NOTE | 2023-08-05 15:15 | P.PN ---
Subjective Progress Note Date: 08/05/23 CHIEF COMPLAINT: Abdominal pain HISTORY OF PRESENT ILLNESS: The patient is a 63 year old female seen in the ICU for abdominal pain. Patient presents with neutropenia and malignancy of uncertain etiology. Patient appears more lethargic today. Her small bowel follow-through did report evidence of a high-grade small bowel obstruction. She has NG tube in place with 250 mL output. Abdomen is distended. She remains neutropenic. Transfer has been accepted to [facility]. Low-grade temp of 100.2 this morning increased oxygen demands. WBC 0.5 Hgb 7.1 patient did receive a unit of blood yesterday for hemoglobin of 6.3 platelets 50 PHYSICAL EXAM: VITAL SIGNS: Reviewed GENERAL: Well-developed in no acute distress. HEENT: No sclera icterus. Extraocular movements grossly intact. Moist buccal mucosa. Head is atraumatic, normocephalic. Hears conversational speech. No nasal drainage. NECK: Supple without lymphadenopathy. CHEST: Non-labored respirations and equal bilateral excursions. CARDIOVASCULAR: Palpable 2+ radial pulses. ABDOMEN: distended. No diffuse peritonitis. MUSCULOSKELETAL: No clubbing or cyanosis. NEUROLOGIC: No focal or lateralizing signs. Cranial nerves II through XII grossly intact. PSYCH: awake SKIN: Well perfused. Good skin turgor. ASSESSMENT: 1. Findings suspicious for high-grade bowel obstruction noted on small bowel follow-through 2. Colitis sigmoid colon 3. Neutropenia 4. Anemia 5. Elevated liver enzyme 6. Malignancy of uncertain etiology PLAN: -Agree with transfer to [facility] -Continue NG tube for decompression -N.p.o. except for ice chips -Patient presents with complicated multiple medical comorbidities which would make any surgical intervention extremely high risk. Physician Production Weigher note has been reviewed by physician. Signing provider agrees with the documented findings, assessment, and plan of care. Objective - Vital Signs Vital signs: Vital Signs Temp 99.6 F 08/05/23 10:00 Pulse 96 08/05/23 10:00 Resp 20 08/05/23 09:00 BP 113/68 08/05/23 10:00 Pulse Ox 92 L 08/05/23 10:00 FiO2 Intake & Output 08/04/23 08/05/23 08/05/23 18:59 06:59 18:59 Intake Total 1640.841 933.37 681.398 Output Total 1945 800 235 Balance -304.159 133.37 446.398 Weight 78.8 kg 79.7 kg Intake: IV 666.67 933.37 431.671 0.9NS 50 120 20 Amiodarone 450 mg In 16.67 183.37 16.67 Dextrose 5% in Water 250 ml @ 0.5 MG/MIN 16.667 mls/hr IV .Q15H [facility] Rx#: [id number] Amiodarone 450 mg In 50.001 Dextrose 5% in Water 250 ml @ 0.5 MG/MIN 16.667 mls/hr IV .Q15H [facility] Rx#: [id number] Cefepime 2 gm In Sodium 100 25 Chloride 0.9% 100 ml @ 25 mls/hr IVPB Q12H [facility] Rx# :[id number] Lactated Ringers 1,000 ml 300 @ 50 mls/hr IV .Q20H [facility] Rx#:[id number] Mvi, Adult No.4 with Vit 330 120 K 10 ml Trace (Conc-1Ml/ Dose) 1 ml Sodium Acetate 30 meq Potassium Chloride 20 meq Magnesium Sulfate gm 0.5 gm In Amino Acids 5 %/Dextrose 20 % 1,000 ml @ 30 mls/hr IV .Q24H [facility] Rx#: [id number] Potassium Chloride 20 meq 100 100 In Water For Injection 1 100ml.bag @ 50 mls/hr IVPB Q2H [facility] Rx#: [id number] cefepime 100 metroNIDAZOLE-NS PMX 500 200 100 100 mg In Saline 1 100ml.bag @ 100 mls/hr IVPB Q8HR [facility] Rx#:[id number] Intake, IV Titration 304.171 249.727 Amount Amiodarone 450 mg In 204.171 249.727 Dextrose 5% in Water 250 ml @ 0.5 MG/MIN 16.667 mls/hr IV .Q15H [facility] Rx#: [id number] Magnesium Sulfate-D5w Pmx 100 1 gm In Dextrose/Water 1 100ml.bag @ 100 mls/hr IVPB ONCE ONE Rx#: [id number] Blood Product 310 Rc As-1 Unit 310 [id number] Other 360 Output: Gastric Drainage 900 250 Urine 945 550 235 Oral Regurgitation 100 Other: Voiding Method Indwelling Catheter Indwelling Catheter Indwelling Catheter - Labs CBC & Chem 7: 08/05/23 04:02 08/05/23 04:02 Labs: Abnormal Lab Results - Last 24 Hours (Table) 08/04/23 08/04/23 08/05/23 Range/Units 17:46 23:37 04:02 WBC (3.8-10.6) k/uL RBC (3.80-5.40) m/uL Hgb (11.4-16.0) gm/dL Hct (34.0-46.0) % MCV (80.0-100.0) fL RDW (11.5-15.5) % Plt Count (150-450) k/uL Macrocytosis PT (10.0-12.5) sec INR (<1.2) APTT (22.0-30.0) sec BUN (7-17) mg/dL Glucose (74-99) mg/dL POC Glucose (mg/dL) 121 H 153 H (70-110) mg/dL Hemoglobin A1c 6.1 H (<=6.0) % Albumin (3.5-5.0) g/dL 08/05/23 08/05/23 08/05/23 Range/Units 04:02 04:02 04:02 WBC 0.5 L* (3.8-10.6) k/uL RBC 2.26 L (3.80-5.40) m/uL Hgb 7.1 L (11.4-16.0) gm/dL Hct 22.8 L (34.0-46.0) % MCV 101.0 H (80.0-100.0) fL RDW 21.2 H (11.5-15.5) % Plt Count 50 L (150-450) k/uL Macrocytosis Marked A PT 17.6 H (10.0-12.5) sec INR 1.7 H (<1.2) APTT 48.9 H (22.0-30.0) sec BUN 24 H (7-17) mg/dL Glucose 152 H (74-99) mg/dL POC Glucose (mg/dL) (70-110) mg/dL Hemoglobin A1c (<=6.0) % Albumin 2.3 L (3.5-5.0) g/dL 08/05/23 08/05/23 Range/Units 06:48 13:46 WBC (3.8-10.6) k/uL RBC (3.80-5.40) m/uL Hgb (11.4-16.0) gm/dL Hct (34.0-46.0) % MCV (80.0-100.0) fL RDW (11.5-15.5) % Plt Count (150-450) k/uL Macrocytosis PT (10.0-12.5) sec INR (<1.2) APTT (22.0-30.0) sec BUN (7-17) mg/dL Glucose (74-99) mg/dL POC Glucose (mg/dL) 174 H 176 H (70-110) mg/dL Hemoglobin A1c (<=6.0) % Albumin (3.5-5.0) g/dL Microbiology - Last 24 Hours (Table) 07/31/23 04:12 Blood Culture - Final Blood
[2023-08-05 17:20] LABS: Glucose,Whole Blood 169 mg/dL (70-110)
[2023-08-05] MEDS: 1: MVI, ADULT NO.4 WITH VIT K 10 ML, TRACE (CONC-1ML/DOSE) 1 ML, SODIUM ACETATE 30 MEQ, IV SCH (21:02)
--- NOTE | 2023-08-05 21:06 | P.PN ---
Subjective Progress Note Date: 08/05/23 Principal diagnosis: Reason for follow-up visit Enterobacter bacteremia Patient is a 63-year-old female with a past medical history significant for reflux PE anxiety bipolar depression patient was brought into the hospital for 1 day history of severe low back pain, patient was noted to be febrile did have elevated lactic acid abnormality of likely on the CT abdominal pelvis and a positive blood culture concerning for possible discitis osteomyelitis. On today's evaluation that is 08/05/2023,the patient remains to be afebrile, patient is on 12 L nasal cannula supplemental oxygen and denies any shortness of breath no chest pain or worsening cough.Patient denies having any nausea or vomiting, no abdominal pain and no diarrhea has been reported. Patient white count 0.5, creatinine is 0.8 3 repeat blood cultures so far negative Objective - Vital Signs Vital signs: Vital Signs Temp 99.6 F 08/05/23 10:00 Pulse 96 08/05/23 10:00 Resp 20 08/05/23 09:00 BP 113/68 08/05/23 10:00 Pulse Ox 92 L 08/05/23 10:00 FiO2 Intake & Output 08/04/23 08/05/23 08/05/23 18:59 06:59 18:59 Intake Total 1640.841 933.37 681.398 Output Total 1945 800 235 Balance -304.159 133.37 446.398 Weight 78.8 kg 79.7 kg Intake: IV 666.67 933.37 431.671 0.9NS 50 120 20 Amiodarone 450 mg In 16.67 183.37 16.67 Dextrose 5% in Water 250 ml @ 0.5 MG/MIN 16.667 mls/hr IV .Q15H [facility] Rx#: [id number] Amiodarone 450 mg In 50.001 Dextrose 5% in Water 250 ml @ 0.5 MG/MIN 16.667 mls/hr IV .Q15H [facility] Rx#: [id number] Cefepime 2 gm In Sodium 100 25 Chloride 0.9% 100 ml @ 25 mls/hr IVPB Q12H [facility] Rx# :[id number] Lactated Ringers 1,000 ml 300 @ 50 mls/hr IV .Q20H [facility] Rx#:[id number] Mvi, Adult No.4 with Vit 330 120 K 10 ml Trace (Conc-1Ml/ Dose) 1 ml Sodium Acetate 30 meq Potassium Chloride 20 meq Magnesium Sulfate gm 0.5 gm In Amino Acids 5 %/Dextrose 20 % 1,000 ml @ 30 mls/hr IV .Q24H [facility] Rx#: [id number] Potassium Chloride 20 meq 100 100 In Water For Injection 1 100ml.bag @ 50 mls/hr IVPB Q2H [facility] Rx#: [id number] cefepime 100 metroNIDAZOLE-NS PMX 500 200 100 100 mg In Saline 1 100ml.bag @ 100 mls/hr IVPB Q8HR [facility] Rx#:[id number] Intake, IV Titration 304.171 249.727 Amount Amiodarone 450 mg In 204.171 249.727 Dextrose 5% in Water 250 ml @ 0.5 MG/MIN 16.667 mls/hr IV .Q15H [facility] Rx#: [id number] Magnesium Sulfate-D5w Pmx 100 1 gm In Dextrose/Water 1 100ml.bag @ 100 mls/hr IVPB ONCE ONE Rx#: [id number] Blood Product 310 Rc As-1 Unit 310 [id number] Other 360 Output: Gastric Drainage 900 250 Urine 945 550 235 Oral Regurgitation 100 Other: Voiding Method Indwelling Catheter Indwelling Catheter Indwelling Catheter - Exam GENERAL DESCRIPTION: Middle-aged female lying in bed in no distress RESPIRATORY SYSTEM: Unlabored breathing , decreased breath sounds at bases HEART: S1 S2 regular rate and rhythm , ABDOMEN: Soft , no tenderness EXTREMITIES: No edema feet - Labs CBC & Chem 7: 08/05/23 04:02 08/05/23 04:02 Labs: Abnormal Lab Results - Last 24 Hours (Table) 08/04/23 08/04/23 08/04/23 Range/Units 08:55 11:15 13:45 WBC 0.4 L* (3.8-10.6) k/uL RBC 2.54 L (3.80-5.40) m/uL Hgb 8.0 L D (11.4-16.0) gm/dL Hct 25.7 L (34.0-46.0) % MCV 101.3 H (80.0-100.0) fL RDW 20.9 H (11.5-15.5) % Plt Count 50 L (150-450) k/uL Macrocytosis Marked A PT (10.0-12.5) sec INR (<1.2) APTT (22.0-30.0) sec BUN (7-17) mg/dL Glucose (74-99) mg/dL POC Glucose (mg/dL) (70-110) mg/dL Hemoglobin A1c (<=6.0) % Phosphorus 4.9 H (2.5-4.5) mg/dL Albumin (3.5-5.0) g/dL Crossmatch See Detail 08/04/23 08/04/23 08/05/23 Range/Units 17:46 23:37 04:02 WBC (3.8-10.6) k/uL RBC (3.80-5.40) m/uL Hgb (11.4-16.0) gm/dL Hct (34.0-46.0) % MCV (80.0-100.0) fL RDW (11.5-15.5) % Plt Count (150-450) k/uL Macrocytosis PT (10.0-12.5) sec INR (<1.2) APTT (22.0-30.0) sec BUN (7-17) mg/dL Glucose (74-99) mg/dL POC Glucose (mg/dL) 121 H 153 H (70-110) mg/dL Hemoglobin A1c 6.1 H (<=6.0) % Phosphorus (2.5-4.5) mg/dL Albumin (3.5-5.0) g/dL Crossmatch 08/05/23 08/05/23 08/05/23 Range/Units 04:02 04:02 04:02 WBC 0.5 L* (3.8-10.6) k/uL RBC 2.26 L (3.80-5.40) m/uL Hgb 7.1 L (11.4-16.0) gm/dL Hct 22.8 L (34.0-46.0) % MCV 101.0 H (80.0-100.0) fL RDW 21.2 H (11.5-15.5) % Plt Count 50 L (150-450) k/uL Macrocytosis Marked A PT 17.6 H (10.0-12.5) sec INR 1.7 H (<1.2) APTT 48.9 H (22.0-30.0) sec BUN 24 H (7-17) mg/dL Glucose 152 H (74-99) mg/dL POC Glucose (mg/dL) (70-110) mg/dL Hemoglobin A1c (<=6.0) % Phosphorus (2.5-4.5) mg/dL Albumin 2.3 L (3.5-5.0) g/dL Crossmatch 08/05/23 Range/Units 06:48 WBC (3.8-10.6) k/uL RBC (3.80-5.40) m/uL Hgb (11.4-16.0) gm/dL Hct (34.0-46.0) % MCV (80.0-100.0) fL RDW (11.5-15.5) % Plt Count (150-450) k/uL Macrocytosis PT (10.0-12.5) sec INR (<1.2) APTT (22.0-30.0) sec BUN (7-17) mg/dL Glucose (74-99) mg/dL POC Glucose (mg/dL) 174 H (70-110) mg/dL Hemoglobin A1c (<=6.0) % Phosphorus (2.5-4.5) mg/dL Albumin (3.5-5.0) g/dL Crossmatch Microbiology - Last 24 Hours (Table) 07/31/23 04:12 Blood Culture - Final Blood Assessment and Plan (1) Gram-negative bacteremia Current Visit: Yes Status: Acute Priority: High Code(s): R78.81 - BACTEREMIA SNOMED Code(s): 915865049319 Plan: 1patient presented to hospital with sepsis in this patient who did have a fever tachycardia hypotension significant leukopenia now with evidence of Enterobacter bacteremia in this patient with significant lower back pain, some abnormality of the L3 was seen on the CT abdominal pelvis concern for possible discitis or oste omyelitis as no other focus of infection with clinically as well as on the basis of investigation done so far 2-patient with a renal insufficiency high risk of nephrotoxicity: 3-patient repeat CT abdominal pelvis did show significant change in the sigmoid colon could be the source of this bacteremia however will benefit from MRI of the lumbar spine when Hemodynamically stable 4-patient repeat blood culture has been negative 5- patient remains to be afebrile white count remains to be on the low side patient is currently covered with cefepime and Flagyl and monitor clinical course closely Dictation was produced using [employer] dictation software. please excuse any grammatical, word or spelling errors. Time with Patient: Less than 30
[2023-08-06 00:48] LABS: Glucose,Whole Blood 210 mg/dL (70-110)
[2023-08-06 04:50] LABS: Anisocytosis Moderate; HCT 22.6 % (34.0-46.0); Hypochromasia Moderate; MCH 31.6 pg (25.0-35.0); MCHC 30.5 g/dL (31.0-37.0); MCV 103.5 fL (80.0-100.0); Macrocytosis Marked; Mean Platelet Volume 12.9; RBC 2.18 m/uL (3.80-5.40); RDW 21.1 % (11.5-15.5)
[2023-08-06 04:52] LABS: WBC 0.5 k/uL (3.8-10.6)
[2023-08-06 04:54] LABS: HGB 6.9 gm/dL (11.4-16.0)
[2023-08-06 04:55] LABS: Platelet Count 38 k/uL (150-450)
[2023-08-06 05:12] LABS: INR 1.4 (<1.2); Partial Thromboplastin Time 34.9 sec (22.0-30.0); Prothrombin Time 14.6 sec (10.0-12.5)
[2023-08-06 05:18] LABS: Ionized Calcium 5.4 mg/dL (4.5-5.3)
[2023-08-06 05:24] LABS: ALT 15 U/L (4-34); AST 44 U/L (14-36); African American GFR (CKD) >90 (>60 ml/min/1.73 sqM); Albumin 2.5 g/dL (3.5-5.0); Alkaline Phosphatase 57 U/L (38-126); Anion Gap 4 mmol/L; Blood Urea Nitrogen 19 mg/dL (7-17); Calcium 9.9 mg/dL (8.4-10.2); Carbon Dioxide 26 mmol/L (22-30); Chloride 108 mmol/L (98-107); Glucose 203 mg/dL (74-99); Magnesium 1.9 mg/dL (1.6-2.3); Non-African American GFR(CKD) >90 (>60 ml/min/1.73 sqM); Phosphorus 2.4 mg/dL (2.5-4.5); Sodium 138 mmol/L (137-145); Total Bilirubin 1.5 mg/dL (0.2-1.3); Total Protein 8.2 g/dL (6.3-8.2)
[2023-08-06 05:42] LABS: Rouleaux Present
--- NOTE | 2023-08-06 05:57 | PN ---
PROGRESS NOTE This lady has pancytopenia of unclear etiology. Ejection fraction in the 45% range. She has paroxysmal atrial fibrillation but currently in sinus, maintaining sinus rhythm since yesterday. She is also fairly stable hemodynamically. However, she is going to be transferred to [facility] according to the surgeon, Dr. Swann given the fact she is a high risk patient with multiple comorbid conditions. Cardiac-palma stable. Would recommend that we continue her current medical regimen. Vitals are stable. S1-S2 heard normally. No significant murmurs. Lungs reveal bilateral air entry. Abdomen is soft. Lower extremities reveal trace edema. Rest of physical exam unchanged. We will see her as needed. MMODL / IJN: [id number] /
[2023-08-06 06:02] LABS: Glucose,Whole Blood 233 mg/dL (70-110)
--- NOTE | 2023-08-06 07:53 | XR ---
EXAMINATION TYPE: XR chest 1V portable DATE OF EXAM: 08/06/2023 COMPARISON: 08/05/2019 HISTORY: Shortness of breath TECHNIQUE: Single frontal view of the chest is obtained. FINDINGS: NG tube seen coursing of the abdomen likely within the stomach. Bilateral patchy airspace disease is stable. No sizable pleural effusion on the right. Costophrenic angle on the left is not in cluded in the [id number]. Degenerative change of the spine. No sizable pneumothorax. Heart is enla rged. IMPRESSION: Stable diffuse bilateral airspace disease correlate for CHF otherwise consider diffuse p neumonia or atypical pneumonia.
[2023-08-06] MEDS: FUROSEMIDE 10 MG/ML 4 ML VIAL IV STA (08:09)
--- NOTE | 2023-08-06 10:34 | P.PN ---
Subjective Patient is seen in follow-up for acute kidney injury. Renal function at baseline. Receiving TPN. Remains on amiodarone drip. Vital signs are stable. General: Resting in bed. HEENT: On nasal cannula. Has NG tube. LUNGS: No audible rhonchi or wheezes. HEART: Rate and Rhythm are regular. ABDOMEN: Nontender. EXTREMITITES: Trace edema. Objective - Vital Signs Vital signs: Vital Signs Temp 99.1 F 08/06/23 09:30 Pulse 94 08/06/23 10:00 Resp 12 08/06/23 10:00 BP 125/69 08/06/23 10:00 Pulse Ox 98 08/06/23 10:00 FiO2 Intake & Output 08/05/23 08/06/23 08/06/23 18:59 06:59 18:59 Intake Total 1284.882 7897.367 836.8 Output Total 334 211 0824 Balance 693.067 730.367 -1463.2 Weight 78.6 kg Intake: IV 1018.340 400.367 206.8 0.9NS 80 140 40 ACETAMINOPHEN IV (For NPO 100 ) 1,000 mg In Empty Bag 1 bag @ 400 mls/hr IVPB Q6HR [facility] Rx#:[id number] Amiodarone 450 mg In 16.67 Dextrose 5% in Water 250 ml @ 0.5 MG/MIN 16.667 mls/hr IV .Q15H [facility] Rx#: [id number] Amiodarone 450 mg In 166.670 200.367 66.8 Dextrose 5% in Water 250 ml @ 0.5 MG/MIN 16.667 mls/hr IV .Q15H [facility] Rx#: [id number] Cefepime 2 gm In Sodium 25 Chloride 0.9% 100 ml @ 25 mls/hr IVPB Q12H [facility] Rx# :[id number] Mvi, Adult No.4 with Vit 330 60 K 10 ml Trace (Conc-1Ml/ Dose) 1 ml Sodium Acetate 30 meq Potassium Chloride 20 meq Magnesium Sulfate gm 0.5 gm In Amino Acids 5 %/Dextrose 20 % 1,000 ml @ 30 mls/hr IV .Q24H [facility] Rx#: [id number] Potassium Chloride 20 meq 100 In Water For Injection 1 100ml.bag @ 50 mls/hr IVPB Q2H [facility] Rx#: [id number] metroNIDAZOLE-NS PMX 500 200 100 mg In Saline 1 100ml.bag @ 100 mls/hr IVPB Q8HR [facility] Rx#:[id number] Intake, IV Titration 680.395 0592 320 Amount Amiodarone 450 mg In 249.727 250 Dextrose 5% in Water 250 ml @ 0.5 MG/MIN 16.667 mls/hr IV .Q15H [facility] Rx#: [id number] Mvi, Adult No.4 with Vit 800 240 K 10 ml Trace (Conc-1Ml/ Dose) 1 ml Sodium Acetate 30 meq Potassium Chloride 20 meq Magnesium Sulfate gm 0.5 gm In Amino Acids 5 %/Dextrose 20 % 1,000 ml @ 80 mls/hr IV .BY DURATION [facility] Rx#: [id number] Sodium Acetate 30 meq 80 Potassium Chloride 20 meq Magnesium Sulfate gm 0.5 gm In Amino Acids 5 %/ Dextrose 20 % 1,000 ml @ 80 mls/hr IV .BY DURATION [facility] Rx#:[id number] Blood Product 0 310 Rc Irr As1 Unit 0 310 [id number] Output: Gastric Drainage 250 Urine 573 467 2201 Other: Voiding Method Indwelling Catheter Indwelling Catheter Indwelling Catheter - Labs CBC & Chem 7: 08/06/23 03:34 08/06/23 03:34 Labs: Abnormal Lab Results - Last 24 Hours (Table) 08/04/23 08/05/23 08/05/23 Range/Units 08:55 13:46 17:18 WBC (3.8-10.6) k/uL RBC (3.80-5.40) m/uL Hgb (11.4-16.0) gm/dL Hct (34.0-46.0) % MCV (80.0-100.0) fL MCHC (31.0-37.0) g/dL RDW (11.5-15.5) % Plt Count (150-450) k/uL Macrocytosis PT (10.0-12.5) sec INR (<1.2) APTT (22.0-30.0) sec Chloride (98-107) mmol/L BUN (7-17) mg/dL Glucose (74-99) mg/dL POC Glucose (mg/dL) 176 H 169 H (70-110) mg/dL Ionized Calcium Kristyn (4.5-5.3) mg/dL Phosphorus (2.5-4.5) mg/dL Total Bilirubin (0.2-1.3) mg/dL AST (14-36) U/L Albumin (3.5-5.0) g/dL Crossmatch See Detail 08/06/23 08/06/23 08/06/23 Range/Units 00:44 03:34 03:34 WBC 0.5 L* (3.8-10.6) k/uL RBC 2.18 L (3.80-5.40) m/uL Hgb 6.9 L* (11.4-16.0) gm/dL Hct 22.6 L (34.0-46.0) % MCV 103.5 H (80.0-100.0) fL MCHC 30.5 L (31.0-37.0) g/dL RDW 21.1 H (11.5-15.5) % Plt Count 38 L (150-450) k/uL Macrocytosis Marked A PT (10.0-12.5) sec INR (<1.2) APTT (22.0-30.0) sec Chloride 108 H (98-107) mmol/L BUN 19 H (7-17) mg/dL Glucose 203 H (74-99) mg/dL POC Glucose (mg/dL) 210 H (70-110) mg/dL Ionized Calcium Kristyn 5.4 H (4.5-5.3) mg/dL Phosphorus 2.4 L (2.5-4.5) mg/dL Total Bilirubin 1.5 H (0.2-1.3) mg/dL AST 44 H (14-36) U/L Albumin 2.5 L (3.5-5.0) g/dL Crossmatch 08/06/23 08/06/23 Range/Units 03:34 06:01 WBC (3.8-10.6) k/uL RBC (3.80-5.40) m/uL Hgb (11.4-16.0) gm/dL Hct (34.0-46.0) % MCV (80.0-100.0) fL MCHC (31.0-37.0) g/dL RDW (11.5-15.5) % Plt Count (150-450) k/uL Macrocytosis PT 14.6 H (10.0-12.5) sec INR 1.4 H (<1.2) APTT 34.9 H (22.0-30.0) sec Chloride (98-107) mmol/L BUN (7-17) mg/dL Glucose (74-99) mg/dL POC Glucose (mg/dL) 233 H (70-110) mg/dL Ionized Calcium Kristyn (4.5-5.3) mg/dL Phosphorus (2.5-4.5) mg/dL Total Bilirubin (0.2-1.3) mg/dL AST (14-36) U/L Albumin (3.5-5.0) g/dL Crossmatch Microbiology - Last 24 Hours (Table) 07/31/23 04:12 Blood Culture - Final Blood Assessment and Plan Plan: Assessment: 1. Acute kidney injury secondary to ATN secondary to septic shock. Resolved. No hydronephrosis noted on CAT scan. 2. Metabolic acidosis secondary to acute kidney injury status post bicarb drip. Improved. 3. Septic shock secondary to Enterobacter bacteremia on antibiotics. 4. Pancytopenia. Elevated kappa light chains. Oncology following. Bone ma rrow biopsy being considered. Status post blood transfusions this admission. 5. Small to moderate pericardial effusion. 6. Volume overload. Status post IV Lasix this admission. Received IV Lasix this morning. 7. A-fib with RVR maintained on amiodarone drip. Cardiology following. 8. Small bowel obstruction. Surgery following. 9. Hypokalemia from diuresis and poor intake. Replaced. Improved. Hemolyzed sample this morning. 10. Hypophosphatemia from poor intake and diuresis. Plan: Status post IV Lasix this morning. Phosphorus to be adjusted with TPN. Avoid nephrotoxins. Continue to monitor renal function and urine output. Case discussed with hematology oncology. Patient too unstable for bone marrow biopsy at this time. High suspicion for multiple myeloma. Transfer to [facility] pending.
--- NOTE | 2023-08-06 11:42 | P.PN ---
Subjective Progress Note Date: 08/06/23 Patient is a 63-year-old female with history of pulmonary embolism anticoagulated with Eliquis, GI bleed, GERD, and bipolar disorder who presented to the emergency room with complaints of back pain. On arrival to the emergency department her initial vital signs showed blood pressure of 98/57 however 45 minutes later she had a pulse of 124 with a blood pressure of 73/48. Initial laboratory analysis was remarkable for white blood cell count of 9, hemoglobin 9.1, INR 1.3, D-dimer 3.32, sodium 129, potassium 5.6, carbon dioxide 8, BUN 68, creatinine 5.13, AST 71, ALT 110. Initial urinalysis was negative. Patient had been given 2 L of fluid in the emergency department but remained hypotensive. Patient was called for admission. Her CT head and cervical spine then resulted with no acute intracranial abnormality but cervical spondylosis most progressed at C6-C7. CT chest abdomen and pelvis demonstrated nonspecific right inguinal adenopathy, superior endplate fracture of L3 likely Schmorl's node with clinical correlation recommended. She was given an additional 1 L fluid bolus and started on D5W with 3 A of bicarb. Nephrology was contacted. Arrangements were made for the patient to be admitted to the ICU. She was started on empiric Vanco and Zosyn due to refractory hypotension and shock, in conjunction with neutropenia. Critical care was consulted. Patient began to require norepinephrine. She was found to have Enterobacter bacteremia and antibiotics were streamlined to cefepime. Infectious disease was consulted.Repeat CBC on the patient showed a hemoglobin down to 6.6. 1 unit of packed red blood cells was ordered. Patient went into atrial fibrillation with rapid ventricular response and was initially given Cardizem and then placed on amiodarone bolus. She was more awake and alert by the morning of 07/31/23. Her vasopressors were able to be weaned on 08/01/23. Repeat CT abdomen pelvis shows moderate groundglass densities in the lung bases, long segment of markedly thickened sigmoid colon with proximal marked dilatation of the colon with air and fluid consistent with partial large bowel obstruction, likely acute sigmoid colitis or diverticulitis, neoplasm not entirely excluded. Continues to remain pancytopenic, requiring another unit of PRBCs on 08/01. Surgery was consulted. NG tube placed. Small bowel follow-through showed high-grade bowel obstruction. Surgery team recommending transfer to tertiary care center. Patient accepted by [facility], attending is Dr. Phelps. Patient seen and examined at bedside. Still has periods of confusion. Denies any chest pain, abdominal pain, nausea, vomiting. No bowel movements. Seeing some gas. Urinary catheter in place. No active bleeding, NG tube in place. Vital signs reviewed General: Chronically ill appearing, no distress, appears at stated age Chest: Large chest wall nodule next to breast augmentation from prior rupture, mildly tender to palpation Cardiovascular: S1S2 reg, no murmur Lungs: Decreased bs bilateral, no rhonchi, no rales, no accessory muscle use Abdominal: soft, mildly tender to palpation, no guarding, NG tube in place Ext: no gross muscle atrophy, no edema b/l lower extremities, no contractures Neuro: CN II-XI grossly intact, no focal neuro deficits Psych: Alert, oriented x2, appropriate affect Assessment/Plan: High-grade bowel obstruction Acute sigmoid colitis Neutroepnic sepsis Pancytopenia Septic Shock, resolved Enterobacter cloacae bacteremia Acute hypoxic respiratory failure Acute systolic CHF exacerbation - off pressors -Cefepime 1 g every 12 hours - Flagyl 500 mg IV every 8 hours -Continue to wean oxygen -Discussed with nephrology, patient did receive 40 of IV Lasix today, has had adequate urine output -ID and demographic analyst following -Repeat blood culture from 07/30 negative growth to date -Surgery following, recommending surgical intervention at tertiary care center - NG tube in place for gastric decompression, as well as on TPN Pancytopenia with neutropenia, anemia, and now thrombocytopenia Bipolar disorder -Status post 4 units of PRBCs -Hematology following, continue filgrastim, IVIG, will likely need bone marrow biopsy once stable -Trileptal decreased to 100 3 times daily, due to potential risk for pancytopenia, on Seroquel for 400 daily which is also a reduced dose Acute kidney injury, resolved Hyponatremia. improved Hypokalemia, resolved -Nephrology note reviewed, continue current care -Continue monitor BMP Paroxysmal atrial fibrillation with rapid ventricular response Cardiomyopathy with ejection fraction 40 to 45% -Cardiology note reviewed, recommending continuing amiodarone drip -Anticoagulation currently on hold due to platelets less than 50 -Echocardiogram obtained 07/29 which showed ejection fraction of 40 to 45% - not a candidate for GDMT due to low blood pressures Hx of Pulmonary embolism - hold AC due to plt less than 50 Hypomagnesemia, resolved Endplate fracture L3, possible Schmorl's nodeMRI pending Hyperkalemia, resolved Anion gap metabolic acidosis, resolved Imaging: CT abdomen and pelvis reviewed: Possible partial large bowel obstruction likely secondary to acute sigmoid wall inflammation from IBD or diverticulitis. Neoplasm not completely excluded. 2.8 cm mass in the right superficial inguinal region suspicious for reactive lymphadenopathy. Data Review: WBC 0.5, hemoglobin 6.9, platelet 38, creatinine 0.62, magnesium 1.9, hemolyzed potassium at 5, blood sugars range between 520255 chest x-ray independently interpreted, shows interstitial opacities DVT prophylaxis: SCDs Anticipated discharge date: Pending Clinical Course Anticipated discharge place: Pending Clinical Course Objective - Vital Signs Vital signs: Vital Signs Temp 99.1 F 08/06/23 09:30 Pulse 92 08/06/23 11:00 Resp 17 08/06/23 11:00 BP 130/63 08/06/23 11:00 Pulse Ox 97 08/06/23 11:00 FiO2 Intake & Output 08/05/23 08/06/23 08/06/23 18:59 06:59 18:59 Intake Total 7895.725 5608.367 963.5 Output Total 869 033 7046 Balance 693.067 730.367 -1686.5 Weight 78.6 kg Intake: IV 1018.340 400.367 333.5 0.9NS 80 140 50 ACETAMINOPHEN IV (For NPO 100 ) 1,000 mg In Empty Bag 1 bag @ 400 mls/hr IVPB Q6HR PRN Rx#:[id number] Amiodarone 450 mg In 16.67 Dextrose 5% in Water 250 ml @ 0.5 MG/MIN 16.667 mls/hr IV .Q15H [facility] Rx#: [id number] Amiodarone 450 mg In 166.670 200.367 83.5 Dextrose 5% in Water 250 ml @ 0.5 MG/MIN 16.667 mls/hr IV .Q15H [facility] Rx#: [id number] Cefepime 2 gm In Sodium 25 100 Chloride 0.9% 100 ml @ 25 mls/hr IVPB Q12H [facility] Rx# :[id number] Mvi, Adult No.4 with Vit 330 60 K 10 ml Trace (Conc-1Ml/ Dose) 1 ml Sodium Acetate 30 meq Potassium Chloride 20 meq Magnesium Sulfate gm 0.5 gm In Amino Acids 5 %/Dextrose 20 % 1,000 ml @ 30 mls/hr IV .Q24H [facility] Rx#: [id number] Potassium Chloride 20 meq 100 In Water For Injection 1 100ml.bag @ 50 mls/hr IVPB Q2H [facility] Rx#: [id number] metroNIDAZOLE-NS PMX 500 200 100 mg In Saline 1 100ml.bag @ 100 mls/hr IVPB Q8HR [facility] Rx#:[id number] Intake, IV Titration 647.818 7680 320 Amount Amiodarone 450 mg In 249.727 250 Dextrose 5% in Water 250 ml @ 0.5 MG/MIN 16.667 mls/hr IV .Q15H [facility] Rx#: [id number] Mvi, Adult No.4 with Vit 800 240 K 10 ml Trace (Conc-1Ml/ Dose) 1 ml Sodium Acetate 30 meq Potassium Chloride 20 meq Magnesium Sulfate gm 0.5 gm In Amino Acids 5 %/Dextrose 20 % 1,000 ml @ 80 mls/hr IV .BY DURATION [facility] Rx#: [id number] Sodium Acetate 30 meq 80 Potassium Chloride 20 meq Magnesium Sulfate gm 0.5 gm In Amino Acids 5 %/ Dextrose 20 % 1,000 ml @ 80 mls/hr IV .BY DURATION [facility] Rx#:[id number] Blood Product 0 310 Rc Irr As1 Unit 0 310 [id number] Output: Gastric Drainage 250 Urine 841 555 1126 Other: Voiding Method Indwelling Catheter Indwelling Catheter Indwelling Catheter - Labs CBC & Chem 7: 08/06/23 03:34 08/06/23 03:34 Labs: Abnormal Lab Results - Last 24 Hours (Table) 08/04/23 08/05/23 08/05/23 Range/Units 08:55 13:46 17:18 WBC (3.8-10.6) k/uL RBC (3.80-5.40) m/uL Hgb (11.4-16.0) gm/dL Hct (34.0-46.0) % MCV (80.0-100.0) fL MCHC (31.0-37.0) g/dL RDW (11.5-15.5) % Plt Count (150-450) k/uL Macrocytosis PT (10.0-12.5) sec INR (<1.2) APTT (22.0-30.0) sec Chloride (98-107) mmol/L BUN (7-17) mg/dL Glucose (74-99) mg/dL POC Glucose (mg/dL) 176 H 169 H (70-110) mg/dL Ionized Calcium Kristyn (4.5-5.3) mg/dL Phosphorus (2.5-4.5) mg/dL Total Bilirubin (0.2-1.3) mg/dL AST (14-36) U/L Albumin (3.5-5.0) g/dL Crossmatch See Detail 08/06/23 08/06/23 08/06/23 Range/Units 00:44 03:34 03:34 WBC 0.5 L* (3.8-10.6) k/uL RBC 2.18 L (3.80-5.40) m/uL Hgb 6.9 L* (11.4-16.0) gm/dL Hct 22.6 L (34.0-46.0) % MCV 103.5 H (80.0-100.0) fL MCHC 30.5 L (31.0-37.0) g/dL RDW 21.1 H (11.5-15.5) % Plt Count 38 L (150-450) k/uL Macrocytosis Marked A PT (10.0-12.5) sec INR (<1.2) APTT (22.0-30.0) sec Chloride 108 H (98-107) mmol/L BUN 19 H (7-17) mg/dL Glucose 203 H (74-99) mg/dL POC Glucose (mg/dL) 210 H (70-110) mg/dL Ionized Calcium Kristyn 5.4 H (4.5-5.3) mg/dL Phosphorus 2.4 L (2.5-4.5) mg/dL Total Bilirubin 1.5 H (0.2-1.3) mg/dL AST 44 H (14-36) U/L Albumin 2.5 L (3.5-5.0) g/dL Crossmatch 08/06/23 08/06/23 Range/Units 03:34 06:01 WBC (3.8-10.6) k/uL RBC (3.80-5.40) m/uL Hgb (11.4-16.0) gm/dL Hct (34.0-46.0) % MCV (80.0-100.0) fL MCHC (31.0-37.0) g/dL RDW (11.5-15.5) % Plt Count (150-450) k/uL Macrocytosis PT 14.6 H (10.0-12.5) sec INR 1.4 H (<1.2) APTT 34.9 H (22.0-30.0) sec Chloride (98-107) mmol/L BUN (7-17) mg/dL Glucose (74-99) mg/dL POC Glucose (mg/dL) 233 H (70-110) mg/dL Ionized Calcium Kristyn (4.5-5.3) mg/dL Phosphorus (2.5-4.5) mg/dL Total Bilirubin (0.2-1.3) mg/dL AST (14-36) U/L Albumin (3.5-5.0) g/dL Crossmatch Microbiology - Last 24 Hours (Table) 07/31/23 04:12 Blood Culture - Final Blood
[2023-08-06 12:02] LABS: Glucose,Whole Blood 222 mg/dL (70-110)
--- NOTE | 2023-08-06 12:18 | P.PN ---
Subjective Progress Note Date: 08/06/23 Principal diagnosis: Acute neutropenic sepsis and neutropenic colitis 63-year-old female patient admitted to the intensive care unit with altered mentation, hypotension and acute kidney injury. The patient presented to the emergency department complaining of some back pain. She was altered, she was encephalopathic and weak. She was found to be hypotensive. She was given s everal fluid boluses and she remained hypotensive and the patient was started on pressors and currently she is on norepinephrine running at 0.1 mcg/kg/min. She was given a total of 4.5 L and currently 2 and a bicarb infusion running at 125 cc an hour. She is producing urine output. Noted that she had an acute kidney injury and the creatinine was elevated at 5.1 with a BUN of 68. Serum bicarb w as at 8 with a potassium level of 5.6 and a sodium levels at 129. She probably has chronic Myelodysplasia as the patient's white cell count was low at 1 with a hemoglobin 9.1 and a platelet count of 153./The patient has pancytopenia. No respiratory difficulties. No cough or sputum production. Chest x-ray showed no evidence of any pneumonia. CT angiogram of the chest showed no evidence of any pulmonary embolism. CAT scan of the abdomen and pelvis was also done that showed no acute abnormalities. There was a small pericardial effusion. Nonspecific right inguinal lymphadenopathy was noted. The patient is having an echocardiogram this morning. The blood gas showed a pH of 7.39 with a pCO2 of 27 and pO2 of 81 minutes with an FiO2 of 28%. Creatinine is on the decline and currently is down to 3.37 with a BUN of 55 and his sodium level is at 133. Free cortisol level is at 33.9. Free T4 is at 0.6 which is essentially low. LDH is not elevated. The viral panel including influenza, COVID-19 and RSV were negative. Coagulation profile was within normal. D-dimer was at 3.98. CT a ngiogram was negative for any pulmonary embolism. CAT scan of the brain was also done in the emergency department along with a CT scan of the cervical spine showed no evidence of any cervical fracture and no evidence of any intracranial abnormalities. Mild spondylosis at the level of C6-C7. No focal neurological deficit. She is able to answer simple commands upon repeated stimulation. CPK was at 33. Troponins were negative. She has previous history of pulm embolism maintained on anticoagulation with Eliquis and this was placed on hold and the patient was started on IV heparin. She was also started empirically on a combination of Zosyn and vancomycin pending further cultures. 07/31/2023, the patient is being seen for a follow-up. Awake and alert and communicating. Continues to have back pain and MRI of the lumbar spine has been ordered. Meanwhile, the patient remains on IV fluids. The patient is on a bicarb infusion at the rate of 125 cc an hour. She also received a unit of packed RBC regarding a drop in hemoglobin down to 6.8 and the follow-up hemoglobin is currently at 8. She remains neutropenic with a white cell count of 0.8 and the patient is also septic and the blood cultures is positive for Enterobacter species. The patient is currently on IV cefepime. She remains on no pressors at this point. She did have an episode of atrial fibrillation yesterday. She was briefly placed on Cardizem at 10 mg an hour and she was given a bolus. She is back into normal sinus rhythm. She is maintained currently on amiodarone at 1 mg/min. In terms of her renal function, the patient's creatinine is improving. BUN is down to 35 with a creatinine of 1.55 and a sodium levels at 133 with a potassium level of 2.5. Oxygenation is stable and the patient is currently on 2 L of O2 nasal cannula with a pulse ox of 95%. Platelet count is also low at 67. A workup regarding this pancytopenia has been initiated. It is also still pending for now. Hepatitis profile has been negative. Iron levels were low and the patient was started on IV iron in addition. 08/01/2023, patient is being seen for a follow-up. The patient is awake and alert. She is complaining of abdominal pain abdominal distention that has developed over the past 24 hours. Noted the patient is neutropenic with a white cell count of 0.6 and the hemoglobin today is at 7.6. Platelet count is at 45. She had gram-negative sepsis and the patient remains on IV cefepime. She is off pressors. Cardiac rhythm is sinus. Function is improved and the follow-up blood work from today shows a BUN of 22 with a creatinine of 0.8 and a sodium noted at 134 and a potassium level is at 4.3. Lactic acid level is at 1.5. The patient is being seen by hematology oncology. This is regarding her pancytopenia. The total serum protein was 6.4. Her free kappa light chains were elevated at 35.2. RIP and rheumatoid factor were negative. MRI of the back is also pending for now. No confusion. No altered mentation. She is awake and alert and communicating. 08/02/2023, patient's condition is essentially unchanged. Probably slightly worse in terms of her abdominal distention. No flatus. No bowel movement activity. No nausea or vomiting. No reported fever or chills. CAT scan of the abdomen was done yesterday minutes was consistent with markedly dilated air and fluid filled loops of the colon. There was a long segment of the sigmoid colon that was thickened and the patient also had dilated bowel in the proximal segments. There was moderate fluid in the cul-de-sac. No intraperitoneal air. Scattered groundglass pulmonary infiltrates in the lung base bilaterally. As such, there was evidence of acute sigmoid wall inflammation consistent with colitis. No diverticulitis. No neoplasm. The patient continues to be pancytopenic. The white cell count today is at 0.5. Hemoglobin is at 6.7 and a platelet count of 45. Limited input from hematology oncology. No immediate plans for biopsy of the bone marrow. Suspicious findings for myeloma. Repeat blood cultures have been negative. The patient is going to receive unit of packed RBC today. BUN is at 21 with a creatinine of 0.8 and a sodium levels at 133. The cardiac rhythm is sinus. The patient remains on a combination of cefe pime and vancomycin. The electrolytes are all within normal limits. Hemodynamically stable and the patient is currently on 5 L of oxygen by nasal cannula with a pulse ox of 95%. 08/03/2023, the patient is being seen for a follow-up. The patient essentially unchanged compared to yesterday. Continues to have abdominal pain which is rather diffuse consistent with colitis given this is neutropenic colitis. The patient is hemodynamically stable on no pressors. NG tube is in place. Total amount of output was 1.1 L over the past 24 hours and the patient remains on amiodarone drip at 0.5 mg/min and the cardiac rhythm is sinus. Fluid balance has been +1.3 L and the patient is on lactated Ringer at rate of 100 cc an hour. She is on oxygen at 5 L/min nasal cannula. White cell count is 0.5, hemoglobin is at 7.5 and a platelet count is 48. BUN is at 17 with a creatinine of 0.8 and a sodium levels at 135. She is lethargic. She is weak. She is quite debilitated. Patient was reevaluated today on 08/04/2023, patient was seen in the ICU, she is on 10 L high flow nasal cannula, she is still requiring norepinephrine, low-dose for maintaining adequate blood pressure. Patient is still on amiodarone 0.5 mg/min, lactated Ringer's at 50 cc/h, hemoglobin is low today at 6.3 and the patient will receive blood transfusion. Continues to have abdominal distention nasogastric tube remains in place, blood cultures positive for Enterobacter cloacae. Patient is having a Gastrografin study today. Hematology is addressing the possibility of multiple myeloma or myelodysplastic syndrome, patient is on cefepime and Flagyl for treatment of her bacteremia. And her colitis. Patient was admitted initially on 07/28 with back pain and abdominal pain, patient has received a total of 3 units of packed RBCs since admission. Patient was seen by general surgery on consultation who felt that the patient is a very high surgical risk, and recommended potential transfer out of the ICU to a tertiary care center. However patient was not accepted at [facility], and I believe the primary admitting service is working on potential transfer to another tertiary care facility. Today I discussed her status with oncologist, considering bone marrow biopsy, but the patient is too ill for biopsy at this point. Surgery is on board, not considering any surgical intervention at this point. Although the patient may eventually require surgical intervention. Labs today are all abnormal WBC count is 0.5 hemoglobin 6.3 platelets are 51,000, basic metabolic profile is normal renal profile is normal, liver profile is normal chest x-ray is showing bilateral airspace disease and small effusion consistent with interstitial pneumonia Patient was reevaluated today on 08/05/2023, patient remains in the ICU, patient continues to have abdominal distention, remains on 11 L high flow nasal cannula remains on antibiotics/cefepime remains on TPN at 30 cc/h she is also on amiodarone at 0.5 mg/min. Chest x-ray is showing evidence of diffuse interstitial lung disease consistent with ARDS. Labs remain quite abnormal WBC 0.5 hemoglobin 7.1 platelets are 50,000's. No evidence of active bleeding. Her INR is 1.7 fibrinogen is 434. Basic metabolic profile is normal renal profile is normal, small bowel follow-through is suggestive of high-grade bowel obstruction, patient was evaluated again by surgery felt that the patient needs to have surgical intervention, however because of her hematological issues, surgery is quite concerned about the overall picture and the prognosis. Hand surgery is recommending referral to a tertiary care center, patient was accepted at [facility] to be transferred sometime today clinically I believe the patient is very high risk for any intervention, and her overall clinical status is very marginal at best patient has received a total of 3 units of packed RBCs since admission hemoglobin today is 7.1 blood cultures have been positive for Enterobacter cloacae and the patient remains on cefepime for now Patient was reevaluated today on 08/06/2023, remains in the ICU, still waiting for a bed in the ICU at [facility], apparently no bed has been available. Although the patient has been accepted for transfer. Patient remains on 7 L high flow nasal cannula, her chest x-ray is showing evidence of interstitial edema or ARDS, hence the patient was given a dose of Lasix 40 mg IV push, and she diuresed quite well. Remains on amiodarone at 0.5 mg/min, on TPN, IV fluids at KVO, she had about 100 cc of nasogastric tube in the last 2 hours. Her abdomen seems to be less distended. Patient received also a unit of packed RBCs today. WBC count is 0.5 hemoglobin 6.9 platelets are 38,000. INR is 1.4 electrolytes are normal BUN is 19 creatinine 0.62, remains on antibiotics in the form of cefepime, metronidazole, remains on TPN patient is not requiring norepinephrine today, she was on it yesterday. Objective - Vital Signs Vital signs: Vital Signs Temp 99.1 F 08/06/23 09:30 Pulse 92 08/06/23 11:00 Resp 17 08/06/23 11:00 BP 130/63 08/06/23 11:00 Pulse Ox 97 08/06/23 11:00 FiO2 Intake & Output 08/05/23 08/06/23 08/06/23 18:59 06:59 18:59 Intake Total 6367.876 0886.367 963.5 Output Total 108 724 6121 Balance 693.067 730.367 -1686.5 Weight 78.6 kg Intake: IV 1018.340 400.367 333.5 0.9NS 80 140 50 ACETAMINOPHEN IV (For NPO 100 ) 1,000 mg In Empty Bag 1 bag @ 400 mls/hr IVPB Q6HR PRN Rx#:[id number] Amiodarone 450 mg In 16.67 Dextrose 5% in Water 250 ml @ 0.5 MG/MIN 16.667 mls/hr IV .Q15H [facility] Rx#: [id number] Amiodarone 450 mg In 166.670 200.367 83.5 Dextrose 5% in Water 250 ml @ 0.5 MG/MIN 16.667 mls/hr IV .Q15H [facility] Rx#: [id number] Cefepime 2 gm In Sodium 25 100 Chloride 0.9% 100 ml @ 25 mls/hr IVPB Q12H [facility] Rx# :[id number] Mvi, Adult No.4 with Vit 330 60 K 10 ml Trace (Conc-1Ml/ Dose) 1 ml Sodium Acetate 30 meq Potassium Chloride 20 meq Magnesium Sulfate gm 0.5 gm In Amino Acids 5 %/Dextrose 20 % 1,000 ml @ 30 mls/hr IV .Q24H [facility] Rx#: [id number] Potassium Chloride 20 meq 100 In Water For Injection 1 100ml.bag @ 50 mls/hr IVPB Q2H [facility] Rx#: [id number] metroNIDAZOLE-NS PMX 500 200 100 mg In Saline 1 100ml.bag @ 100 mls/hr IVPB Q8HR [facility] Rx#:[id number] Intake, IV Titration 861.579 8700 320 Amount Amiodarone 450 mg In 249.727 250 Dextrose 5% in Water 250 ml @ 0.5 MG/MIN 16.667 mls/hr IV .Q15H [facility] Rx#: [id number] Mvi, Adult No.4 with Vit 800 240 K 10 ml Trace (Conc-1Ml/ Dose) 1 ml Sodium Acetate 30 meq Potassium Chloride 20 meq Magnesium Sulfate gm 0.5 gm In Amino Acids 5 %/Dextrose 20 % 1,000 ml @ 80 mls/hr IV .BY DURATION [facility]IE Rx#: [id number] Sodium Acetate 30 meq 80 Potassium Chloride 20 meq Magnesium Sulfate gm 0.5 gm In Amino Acids 5 %/ Dextrose 20 % 1,000 ml @ 80 mls/hr IV .BY D[facility]ATION [facility] Rx#:[id number] Blood Product 0 310 Rc Irr As1 Unit 0 310 [id number] Output: Gastric Drainage 250 Urine 675 [id number] 1778 Other: Voiding Method Indwelling Catheter Indwelling Catheter Indwelling Catheter - Exam GENERAL EXAM: Alert, 63-year-old white female, seems to be a bit uncomfortable, but not in distress. HEAD: Normocephalic and atraumatic EYES: Normal reaction of pupils, equal size. NOSE: Clear with pink turbinates. Gastric tube is in place. THROAT: No erythema or exudates. NECK: No masses, no JVD. CHEST: No chest wall deformity. LUNGS: Crackles persist bilaterally, some rhonchi also noted. CVS: Normal S1-S2, no S3 gallop, no murmur. ABDOMEN: Distended abdomen, diffuse abdominal tenderness is noted, diminished bowel sounds SKIN: No rashes CENTRAL NERVOUS SYSTEM: Alert and oriented x 3 no gross focal deficits. EXTREMITIES: There is no peripheral edema, clubbing, or cyanosis. Peripheral pulses are intact. - Labs CBC & Chem 7: 08/06/23 03:34 08/06/23 03:34 Labs: Abnormal Lab Results - Last 24 Hours (Table) 08/04/23 08/05/23 08/05/23 Range/Units 08:55 13:46 17:18 WBC (3.8-10.6) k/uL RBC (3.80-5.40) m/uL Hgb (11.4-16.0) gm/dL Hct (34.0-46.0) % MCV (80.0-100.0) fL MCHC (31.0-37.0) g/dL RDW (11.5-15.5) % Plt Count (150-450) k/uL Macrocytosis PT (10.0-12.5) sec INR (<1.2) APTT (22.0-30.0) sec Chloride (98-107) mmol/L BUN (7-17) mg/dL Glucose (74-99) mg/dL POC Glucose (mg/dL) 176 H 169 H (70-110) mg/dL Ionized Calcium Kristyn (4.5-5.3) mg/dL Phosphorus (2.5-4.5) mg/dL Total Bilirubin (0.2-1.3) mg/dL AST (14-36) U/L Albumin (3.5-5.0) g/dL Crossmatch See Detail 08/06/23 08/06/23 08/06/23 Range/Units 00:44 03:34 03:34 WBC 0.5 L* (3.8-10.6) k/uL RBC 2.18 L (3.80-5.40) m/uL Hgb 6.9 L* (11.4-16.0) gm/dL Hct 22.6 L (34.0-46.0) % MCV 103.5 H (80.0-100.0) fL MCHC 30.5 L (31.0-37.0) g/dL RDW 21.1 H (11.5-15.5) % Plt Count 38 L (150-450) k/uL Macrocytosis Marked A PT (10.0-12.5) sec INR (<1.2) APTT (22.0-30.0) sec Chloride 108 H (98-107) mmol/L BUN 19 H (7-17) mg/dL Glucose 203 H (74-99) mg/dL POC Glucose (mg/dL) 210 H (70-110) mg/dL Ionized Calcium Kristyn 5.4 H (4.5-5.3) mg/dL Phosphorus 2.4 L (2.5-4.5) mg/dL Total Bilirubin 1.5 H (0.2-1.3) mg/dL AST 44 H (14-36) U/L Albumin 2.5 L (3.5-5.0) g/dL Crossmatch 08/06/23 08/06/23 08/06/23 Range/Units 03:34 06:01 12:00 WBC (3.8-10.6) k/uL RBC (3.80-5.40) m/uL Hgb (11.4-16.0) gm/dL Hct (34.0-46.0) % MCV (80.0-100.0) fL MCHC (31.0-37.0) g/dL RDW (11.5-15.5) % Plt Count (150-450) k/uL Macrocytosis PT 14.6 H (10.0-12.5) sec INR 1.4 H (<1.2) APTT 34.9 H (22.0-30.0) sec Chloride (98-107) mmol/L BUN (7-17) mg/dL Glucose (74-99) mg/dL POC Glucose (mg/dL) 233 H 222 H (70-110) mg/dL Ionized Calcium Kristyn (4.5-5.3) mg/dL Phosphorus (2.5-4.5) mg/dL Total Bilirubin (0.2-1.3) mg/dL AST (14-36) U/L Albumin (3.5-5.0) g/dL Crossmatch Microbiology - Last 24 Hours (Table) 07/31/23 04:12 Blood Culture - Final Blood Assessment and Plan Assessment: Impression: Acute neutropenic sepsis Acute neutropenic colitis/sigmoid colitis Pancytopenia, being addressed by oncology Acute metabolic encephalopathy Septic shock and bacteremia secondary to Enterobacter cloacae Acute kidney injury, improving. Electrolytes imbalance including hyponatremia and hyperkalemia, resolved Mild systolic congestive heart failure, ejection fraction 40 to 45% chest x-ray today is still suspicious of cardiogenic versus noncardiogenic pulmonary edema, hence the patient was given Lasix again today. Small pericardial effusion noted on CT of the chest paroxysmal atrial fi brillation on amiodarone History of bipolar disorder. High-grade small bowel obstruction is strongly suspected Recommendation: Continue present supportive measures Continue plans for transfer to [facility] once a bed is available Gentle diuresis considering the worsening chest x-ray noted today. Continue oxygen and titrate accordingly, patient on 7 L nasal cannula Continue antibiotics including cefepime and Flagyl Continue Crockett catheter Continue nasogastric tube to suction. Strongly believe that the patient will be better off for a tertiary care center, transfer plans are in progress Continue to monitor in the ICU for now until a bed is available at tertiary care center Patient remains critically ill.. Critical care time is over 30 minutes Prognosis is extremely poor and guarded. Time with Patient: Greater than 30
--- NOTE | 2023-08-06 16:44 | P.PN ---
Subjective Progress Note Date: 08/06/23 CHIEF COMPLAINT: Abdominal pain HISTORY OF PRESENT ILLNESS: The patient is a 63 year old female seen in the ICU for abdominal pain. Patient presents with neutropenia and malignancy of uncertain etiology. Patient remains lethargic. No bowel movements. Hemoglobin is down to 6.9 she is getting a unit of blood. She also received a dose of Lasix. She did have a low-grade temp and received Tylenol. She is having flatus. No BM. She is waiting for bed at [facility]. She is on TPN for nutrition support. WBC 0.5 Hgb 6.9 platelets 38 PHYSICAL EXAM: VITAL SIGNS: Reviewed GENERAL: Well-developed in no acute distress. HEENT: No sclera icterus. Extraocular movements grossly intact. Moist buccal mucosa. Head is atraumatic, normocephalic. Hears conversational speech. No nasal drainag e. NECK: Supple without lymphadenopathy. CHEST: Non-labored respirations and equal bilateral excursions. CARDIOVASCULAR: Palpable 2+ radial pulses. ABDOMEN: distended. Abdomen is slightly softer. No diffuse peritonitis. MUSCULOSKELETAL: No clubbing or cyanosis. NEUROLOGIC: No focal or lateralizing signs. Cranial nerves II through XII grossly intact. PSYCH: awake SKIN: Well perfused. Good skin turgor. ASSESSMENT: 1. Findings suspicious for high-grade bowel obstruction noted on small bowel follow-through 2. Colitis sigmoid colon 3. Neutropenia 4. Anemia 5. Elevated liver enzyme 6. Malignancy of uncertain etiology PLAN: -Agree with transfer to [facility] -Defer treatment to transfer team -Continue NG tube for decompression -N.p.o. except for ice chips -Patient presents with complicated multiple medical comorbidities which would make any surgical intervention extremely high risk. Physician P[employer] Hatcher[employer] Manager note has been reviewed by physician. Signing provider agrees with the documented findings, assessment, and plan of care. Objective - Vital Signs Vital signs: Vital Signs Temp 99.1 F 08/06/23 09:30 Pulse 93 08/06/23 16:00 Resp 19 08/06/23 16:00 BP 130/69 08/06/23 16:00 Pulse Ox 97 08/06/23 16:00 FiO2 Intake & Output 08/05/23 08/06/23 08/06/23 18:59 06:59 18:59 Intake Total 4447.456 7876.367 1806.727 Output Total 902 402 9744 Balance 693.067 730.367 -1323.273 Weight 78.6 kg Intake: IV 1018.340 400.367 467.0 0.9NS 80 140 100 ACETAMINOPHEN IV (For NPO 100 ) 1,000 mg In Empty Bag 1 bag @ 400 mls/hr IVPB Q6HR PRN Rx#:[id number] Amiodarone 450 mg In 16.67 Dextrose 5% in Water 250 ml @ 0.5 MG/MIN 16.667 mls/hr IV .Q15H [facility] Rx#: [id number] Amiodarone 450 mg In 166.670 200.367 167.0 Dextrose 5% in Water 250 ml @ 0.5 MG/MIN 16.667 mls/hr IV .Q15H [facility] Rx#: [id number] Cefepime 2 gm In Sodium 25 100 Chloride 0.9% 100 ml @ 25 mls/hr IVPB Q12H [facility] Rx# :[id number] Mvi, Adult No.4 with Vit 330 60 K 10 ml Trace (Conc-1Ml/ Dose) 1 ml Sodium Acetate 30 meq Potassium Chloride 20 meq Magnesium Sulfate gm 0.5 gm In Amino Acids 5 %/Dextrose 20 % 1,000 ml @ 30 mls/hr IV .Q24H [facility] Rx#: [id number] Potassium Chloride 20 meq 100 In Water For Injection 1 100ml.bag @ 50 mls/hr IVPB Q2H [facility] Rx#: [id number] metroNIDAZOLE-NS PMX 500 200 100 mg In Saline 1 100ml.bag @ 100 mls/hr IVPB Q8HR [facility] Rx#:[id number] Intake, IV Titration 710.853 0704 1029.727 Amount Amiodarone 450 mg In 249.727 250 229.727 Dextrose 5% in Water 250 ml @ 0.5 MG/MIN 16.667 mls/hr IV .Q15H [facility] Rx#: [id number] Mvi, Adult No.4 with Vit 800 240 K 10 ml Trace (Conc-1Ml/ Dose) 1 ml Sodium Acetate 30 meq Potassium Chloride 20 meq Magnesium Sulfate gm 0.5 gm In Amino Acids 5 %/Dextrose 20 % 1,000 ml @ 80 mls/hr IV .BY DURATION [facility] Rx#: [id number] Sodium Acetate 30 meq 560 Potassium Chloride 20 meq Magnesium Sulfate gm 0.5 gm In Amino Acids 5 %/ Dextrose 20 % 1,000 ml @ 80 mls/hr IV .BY DURATION [facility] Rx#:[id number] Blood Product 0 310 Rc Irr As1 Unit 0 310 [id number] Output: Gastric Drainage 250 Urine 198 184 7108 Other: Voiding Method Indwelling Catheter Indwelling Catheter Indwelling Catheter - Labs CBC & Chem 7: 08/06/23 03:34 08/06/23 12:10 Labs: Abnormal Lab Results - Last 24 Hours (Table) 08/04/23 08/05/23 08/06/23 Range/Units 08:55 17:18 00:44 WBC (3.8-10.6) k/uL RBC (3.80-5.40) m/uL Hgb (11.4-16.0) gm/dL Hct (34.0-46.0) % MCV (80.0-100.0) fL MCHC (31.0-37.0) g/dL RDW (11.5-15.5) % Plt Count (150-450) k/uL Macrocytosis PT (10.0-12.5) sec INR (<1.2) APTT (22.0-30.0) sec Chloride (98-107) mmol/L BUN (7-17) mg/dL Glucose (74-99) mg/dL POC Glucose (mg/dL) 169 H 210 H (70-110) mg/dL Ionized Calcium Kristyn (4.5-5.3) mg/dL Phosphorus (2.5-4.5) mg/dL Total Bilirubin (0.2-1.3) mg/dL AST (14-36) U/L Albumin (3.5-5.0) g/dL Crossmatch See Detail 08/06/23 08/06/23 08/06/23 Range/Units 03:34 03:34 03:34 WBC 0.5 L* (3.8-10.6) k/uL RBC 2.18 L (3.80-5.40) m/uL Hgb 6.9 L* (11.4-16.0) gm/dL Hct 22.6 L (34.0-46.0) % MCV 103.5 H (80.0-100.0) fL MCHC 30.5 L (31.0-37.0) g/dL RDW 21.1 H (11.5-15.5) % Plt Count 38 L (150-450) k/uL Macrocytosis Marked A PT 14.6 H (10.0-12.5) sec INR 1.4 H (<1.2) APTT 34.9 H (22.0-30.0) sec Chloride 108 H (98-107) mmol/L BUN 19 H (7-17) mg/dL Glucose 203 H (74-99) mg/dL POC Glucose (mg/dL) (70-110) mg/dL Ionized Calcium Kristyn 5.4 H (4.5-5.3) mg/dL Phosphorus 2.4 L (2.5-4.5) mg/dL Total Bilirubin 1.5 H (0.2-1.3) mg/dL AST 44 H (14-36) U/L Albumin 2.5 L (3.5-5.0) g/dL Crossmatch 08/06/23 08/06/23 Range/Units 06:01 12:00 WBC (3.8-10.6) k/uL RBC (3.80-5.40) m/uL Hgb (11.4-16.0) gm/dL Hct (34.0-46.0) % MCV (80.0-100.0) fL MCHC (31.0-37.0) g/dL RDW (11.5-15.5) % Plt Count (150-450) k/uL Macrocytosis PT (10.0-12.5) sec INR (<1.2) APTT (22.0-30.0) sec Chloride (98-107) mmol/L BUN (7-17) mg/dL Glucose (74-99) mg/dL POC Glucose (mg/dL) 233 H 222 H (70-110) mg/dL Ionized Calcium Kristyn (4.5-5.3) mg/dL Phosphorus (2.5-4.5) mg/dL Total Bilirubin (0.2-1.3) mg/dL AST (14-36) U/L Albumin (3.5-5.0) g/dL Crossmatch Microbiology - Last 24 Hours (Table) 07/31/23 04:12 Blood Culture - Final Blood
[2023-08-06 17:05] LABS: Glucose,Whole Blood 209 mg/dL (70-110)
--- NOTE | 2023-08-06 17:23 | P.PN ---
Subjective Progress Note Date: 08/06/23 Principal diagnosis: Reason for follow-up visit Enterobacter bacteremia Patient is a 63-year-old female with a past medical history significant for reflux PE anxiety bipolar depression patient was brought into the hospital for 1 day history of severe low back pain, patient was noted to be febrile did have elevated lactic acid abnormality of likely on the CT abdominal pelvis and a positive blood culture concerning for possible discitis osteomyelitis. On today's evaluation that is 08/06/2023, the patient continues to be afebrile, the patient is on 7 L nasal cannula oxygen and breathing comfortably, the Pt denies having any chest pain or worsening cough, the patient denies significant abdominal pain did have a small bowel movement per the nursing staff no vomiti ng. Patient white count 0.5, creatinine 0.62 Objective - Vital Signs Vital signs: Vital Signs Temp 99.1 F 08/06/23 09:30 Pulse 96 08/06/23 13:00 Resp 24 08/06/23 13:00 BP 146/79 08/06/23 13:00 Pulse Ox 97 08/06/23 13:00 FiO2 Intake & Output 08/05/23 08/06/23 08/06/23 18:59 06:59 18:59 Intake Total 1628.282 9362.367 1486.627 Output Total 492 297 1828 Balance 693.067 730.367 -1563.373 Weight 78.6 kg Intake: IV 1018.340 400.367 386.9 0.9NS 80 140 70 ACETAMINOPHEN IV (For NPO 100 ) 1,000 mg In Empty Bag 1 bag @ 400 mls/hr IVPB Q6HR PRN Rx#:[id number] Amiodarone 450 mg In 16.67 Dextrose 5% in Water 250 ml @ 0.5 MG/MIN 16.667 mls/hr IV .Q15H MARIE Rx#: [id number] Amiodarone 450 mg In 166.670 200.367 116.9 Dextrose 5% in Water 250 ml @ 0.5 MG/MIN 16.667 mls/hr IV .Q15H MARIE Rx#: [id number] Cefepime 2 gm In Sodium 25 100 Chloride 0.9% 100 ml @ 25 mls/hr IVPB Q12H MARIE Rx# :[id number] Mvi, Adult No.4 with Vit 330 60 K 10 ml Trace (Conc-1Ml/ Dose) 1 ml Sodium Acetate 30 meq Potassium Chloride 20 meq Magnesium Sulfate gm 0.5 gm In Amino Acids 5 %/Dextrose 20 % 1,000 ml @ 30 mls/hr IV .Q24H MARIE Rx#: [id number] Potassium Chloride 20 meq 100 In Water For Injection 1 100ml.bag @ 50 mls/hr IVPB Q2H MARIE Rx#: [id number] metroNIDAZOLE-NS PMX 500 200 100 mg In Saline 1 100ml.bag @ 100 mls/hr IVPB Q8HR MARIE Rx#:[id number] Intake, IV Titration 976.122 4137 789.727 Amount Amiodarone 450 mg In 249.727 250 229.727 Dextrose 5% in Water 250 ml @ 0.5 MG/MIN 16.667 mls/hr IV .Q15H MARIE Rx#: [id number] Mvi, Adult No.4 with Vit 800 240 K 10 ml Trace (Conc-1Ml/ Dose) 1 ml Sodium Acetate 30 meq Potassium Chloride 20 meq Magnesium Sulfate gm 0.5 gm In Amino Acids 5 %/Dextrose 20 % 1,000 ml @ 80 mls/hr IV .BY DURATION MARIE Rx#: [id number] Sodium Acetate 30 meq 320 Potassium Chloride 20 meq Magnesium Sulfate gm 0.5 gm In Amino Acids 5 %/ Dextrose 20 % 1,000 ml @ 80 mls/hr IV .BY DURATION [facility] Rx#:[id number] Blood Product 0 310 Rc Irr As1 Unit 0 310 [id number] Output: Gastric Drainage 250 Urine 271 907 1791 Other: Voiding Method Indwelling Catheter Indwelling Catheter Indwelling Catheter - Exam GENERAL DESCRIPTION: Middle-aged female lying in bed in no distress RESPIRATORY SYSTEM: Unlabored breathing , decreased breath sounds at bases HEART: S1 S2 regular rate and rhythm , ABDOMEN: Soft , no tenderness EXTREMITIES: No edema feet - Labs CBC & Chem 7: 08/06/23 03:34 08/06/23 12:10 Labs: Abnormal Lab Results - Last 24 Hours (Table) 08/04/23 08/05/23 08/06/23 Range/Units 08:55 17:18 00:44 WBC (3.8-10.6) k/uL RBC (3.80-5.40) m/uL Hgb (11.4-16.0) gm/dL Hct (34.0-46.0) % MCV (80.0-100.0) fL MCHC (31.0-37.0) g/dL RDW (11.5-15.5) % Plt Count (150-450) k/uL Macrocytosis PT (10.0-12.5) sec INR (<1.2) APTT (22.0-30.0) sec Chloride (98-107) mmol/L BUN (7-17) mg/dL Glucose (74-99) mg/dL POC Glucose (mg/dL) 169 H 210 H (70-110) mg/dL Ionized Calcium Kristyn (4.5-5.3) mg/dL Phosphorus (2.5-4.5) mg/dL Total Bilirubin (0.2-1.3) mg/dL AST (14-36) U/L Albumin (3.5-5.0) g/dL Crossmatch See Detail 08/06/23 08/06/23 08/06/23 Range/Units 03:34 03:34 03:34 WBC 0.5 L* (3.8-10.6) k/uL RBC 2.18 L (3.80-5.40) m/uL Hgb 6.9 L* (11.4-16.0) gm/dL Hct 22.6 L (34.0-46.0) % MCV 103.5 H (80.0-100.0) fL MCHC 30.5 L (31.0-37.0) g/dL RDW 21.1 H (11.5-15.5) % Plt Count 38 L (150-450) k/uL Macrocytosis Marked A PT 14.6 H (10.0-12.5) sec INR 1.4 H (<1.2) APTT 34.9 H (22.0-30.0) sec Chloride 108 H (98-107) mmol/L BUN 19 H (7-17) mg/dL Glucose 203 H (74-99) mg/dL POC Glucose (mg/dL) (70-110) mg/dL Ionized Calcium Kristyn 5.4 H (4.5-5.3) mg/dL Phosphorus 2.4 L (2.5-4.5) mg/dL Total Bilirubin 1.5 H (0.2-1.3) mg/dL AST 44 H (14-36) U/L Albumin 2.5 L (3.5-5.0) g/dL Crossmatch 08/06/23 08/06/23 Range/Units 06:01 12:00 WBC (3.8-10.6) k/uL RBC (3.80-5.40) m/uL Hgb (11.4-16.0) gm/dL Hct (34.0-46.0) % MCV (80.0-100.0) fL MCHC (31.0-37.0) g/dL RDW (11.5-15.5) % Plt Count (150-450) k/uL Macrocytosis PT (10.0-12.5) sec INR (<1.2) APTT (22.0-30.0) sec Chloride (98-107) mmol/L BUN (7-17) mg/dL Glucose (74-99) mg/dL POC Glucose (mg/dL) 233 H 222 H (70-110) mg/dL Ionized Calcium Kristyn (4.5-5.3) mg/dL Phosphorus (2.5-4.5) mg/dL Total Bilirubin (0.2-1.3) mg/dL AST (14-36) U/L Albumin (3.5-5.0) g/dL Crossmatch Microbiology - Last 24 Hours (Table) 07/31/23 04:12 Blood Culture - Final Blood Assessment and Plan (1) Gram-negative bacteremia Current Visit: Yes Status: Acute Priority: High Code(s): R78.81 - BACTEREMIA SNOMED Code(s): 183861704390 Plan: 1patient presented to hospital with sepsis in this patient who did have a fever tachycardia hypotension significant leukopenia now with evidence of Enterobacter bacteremia in this patient with significant lower back pain, some abnormality of the L3 was seen on the CT abdominal pelvis concern for possible discitis or osteomyelitis as no other focus of infection with clinically as well as on the basis of investigation done so far 2-patient with a renal insufficiency high risk of nephrotoxicity: 3-patient repeat CT abdominal pelvis with evidence of high-grade small bowel obstruction and inflammatory changes in the sigmoid colon General surgery is following the patient recommending transfer to tertiary care 4-patient repeat blood culture has been negative 5- patient remains to be afebrile white count remains to be on the low side, the patient is covered with cefepime and Flagyl to continue and monitor clinical course closely Dictation was produced using [employer] dictation software. please excuse any grammatical, word or spelling errors. Time with Patient: Less than 30
[2023-08-06] MEDS: DEXMEDETOMIDINE/0.9% NACL(PMX) 400 MCG in EMPTY BAG 1 BAG IV SCH (20:55)
[2023-08-06] MEDS: 1: MVI, ADULT NO.4 WITH VIT K 10 ML, TRACE (CONC-1ML/DOSE) 1 ML, SODIUM ACETATE 30 MEQ, IV SCH (22:24)
[2023-08-07 05:00] LABS: Anisocytosis Moderate; HCT 22.7 % (34.0-46.0); HGB 7.4 gm/dL (11.4-16.0); Hypochromasia Slight; MCH 32.5 pg (25.0-35.0); MCHC 32.8 g/dL (31.0-37.0); MCV 99.1 fL (80.0-100.0); Macrocytosis Moderate; Mean Platelet Volume 12.5; Poikilocytosis Slight; RBC 2.29 m/uL (3.80-5.40); RDW 21.3 % (11.5-15.5)
[2023-08-07 05:02] LABS: WBC 0.8 k/uL (3.8-10.6)
[2023-08-07 05:03] LABS: Platelet Count 34 k/uL (150-450)
--- NOTE | 2023-08-07 05:21 | P.DS ---
Providers Date of admission: 07/29/23 20:07 Expected date of discharge: 08/07/23 Attending physician: Jamia Meek MD Consults: 07/29/23 20:07 Consult Physician Routine Consulting Provider: Gala Jackson Consult Reason/Comments: icu Do you want consulting provider notified?: Yes Consult Physician Routine Consulting Provider: Mart Schumacher Consult Reason/Comments: sagrario,hyperK Do you want consulting provider notified?: Yes 07/29/23 20:35 Consult Physician Routine Consulting Provider: Jerzy Villaseñor Consult Reason/Comments: sagrario Do you want consulting provider notified?: Yes 07/30/23 03:29 Consult Physician Routine Consulting Provider: Layo Alvarez Consult Reason/Comments: bicytopenia Do you want consulting provider notified?: Yes, Notify in am 07/30/23 15:05 Consult Physician Routine Consulting Provider: Di Maria Consult Reason/Comments: entercoccus bacteremia Do you want consulting provider notified?: Yes 07/31/23 05:50 Consult Physician Stat Consulting Provider: Tamia Perla Consult Reason/Comments: new onset afiv RVR, pericardial effesions Do you want consulting provider notified?: Yes 08/01/23 13:24 Consult Physician Routine Consulting Provider: Aarti Swann Consult Reason/Comments: Partial large bowel obstruction Do you want consulting provider notified?: Yes Primary care physician: Stated None Hospital Course: Patient is a 63-year-old female with history of pulmonary embolism anticoagulated with Eliquis, GI bleed, GERD, and bipolar disorder who presented to the emergency room with complaints of back pain. On arrival to the emergency department her initial vital signs showed blood pressure of 98/57 however 45 minutes later she had a pulse of 124 with a blood pressure of 73/48. Initial laboratory analysis was remarkable for white blood cell count of 9, hemoglobin 9.1, INR 1.3, D-dimer 3.32, sodium 129, potassium 5.6, carbon dioxide 8, BUN 68, creatinine 5.13, AST 71, ALT 110. Initial urinalysis was negative. Patient had been given 2 L of fluid in the emergency department but remained hypotensive. Patient was called for admission. Her CT head and cervical spine then resulted with no acute intracranial abnormality but cervical spondylosis most progressed at C6-C7. CT chest abdomen and pelvis demonstrated nonspecific right inguinal adenopathy, superior endplate fracture of L3 likely Schmorl's node with clinical correlation recommended. She was given an additional 1 L fluid bolus and started on D5W with 3 A of bicarb. Nephrology was contacted. Arrangements were made for the patient to be admitted to the ICU. She was started on empiric Vanco and Zosyn due to refractory hypotension and shock, in conjunction with neutropenia. Critical care was consulted. Patient began to require n orepinephrine. She was found to have Enterobacter bacteremia and antibiotics were streamlined to cefepime. Infectious disease was consulted.Repeat CBC on the patient showed a hemoglobin down to 6.6. 1 unit of packed red blood cells was ordered. Patient went into atrial fibrillation with rapid ventricular response and was initially given Cardizem and then placed on amiodarone bolus. She was more awake and alert by the morning of 07/31/23. Her vasopressors were able to be weaned on 08/01/23. Repeat CT abdomen pelvis shows moderate groundglass densities in the lung bases, long segment of markedly thickened sigmoid colon with proximal marked dilatation of the colon with air and fluid consistent with partial large bowel obstruction, likely acute sigmoid colitis or diverticulitis, neoplasm not entirely excluded. Continues to remain pancytopenic, requiring another unit of PRBCs on 08/01. Surgery was consulted. NG tube placed. Small bowel follow-through showed high-grade bowel obstruction. Surgery team recommending transfer to tertiary care center. Patient accepted by [facility] initially by Dr. Phelps and subsequently by Dr Healy to the MICU to room C546A. Physical Examination General: Ill-appearing female, in no acute distress, appears stated age, normal weight HEENT: NC/AT, anicteric sclerae, moist conjunctiva, no lid-lag, PERRLA Cardiovascular: S1/S2 wnl, no murmurs, rubs, or gallops Lungs: Clear to auscultation, normal respiratory effort, no accessory muscle use Abdominal: Soft, non-tender, non-distended, no guarding, rebound, or rigidity Skin: Warm, dry Extremities: No edema or contractures Psychiatric: Oriented only to self and place, not oriented to time, appropriate affect Neuro: No gross focal deficits noted, moving all extremities Discharge diagnosis: High-grade small bowel obstruction, acute sigmoid colitis, neutropenic sepsis, pancytopenia, septic shock, resolved, Enterobacter bacteremia, acute hypoxic respiratory failure, acute systolic CHF exacerbation A total of 35 minutes of time were spent preparing this complex discharge summary. Patient Condition at Discharge: Serious Plan - Discharge Summary Discharge Rx Participant: Yes New Discharge Prescriptions: No Action ALPRAZolam [Xanax] 1 mg PO TID PRN PRN Reason: Anxiety Omeprazole 40 mg PO BID Ferrous Sulfate [Feosol] 325 mg PO DAILY Apixaban [Eliquis] 5 mg PO BID methocarbamoL [Robaxin] 500 mg PO TID PRN PRN Reason: Muscle Spasm OXcarbazepine [Trileptal] 300 mg PO TID QUEtiapine [SEROquel] 1,200 mg PO HS Cyanocobalamin (Vitamin B-12) [Vitamin B-12] 1,000 mcg PO DAILY Discharge Medication List ALPRAZolam [Xanax] 1 mg PO TID PRN 05/25/22 [History] OXcarbazepine [Trileptal] 300 mg PO TID 05/25/22 [History] Apixaban [Eliquis] 5 mg PO BID 03/08/23 [History] Cyanocobalamin (Vitamin B-12) [Vitamin B-12] 1,000 mcg PO DAILY 03/08/23 [History] Ferrous Sulfate [Feosol] 325 mg PO DAILY 03/08/23 [History] Omeprazole 40 mg PO BID 03/08/23 [History] QUEtiapine [SEROquel] 1,200 mg PO HS 03/08/23 [History] methocarbamoL [Robaxin] 500 mg PO TID PRN 07/29/23 [History] Follow up Appointment(s)/Referral(s): None,Stated [Primary Care Provider] - 1-2 days Discharge Disposition: OTHER INSTITUTION NOT DEFINED
[2023-08-07 05:27] LABS: Rouleaux Present
[2023-08-07 06:14] VITALS: BP 124/72; PULSE 88; RESP 18; TEMP 99
[2023-08-07 06:38] LABS: ALT 15 U/L (4-34); AST 27 U/L (14-36); African American GFR (CKD) >90 (>60 ml/min/1.73 sqM); Albumin 2.3 g/dL (3.5-5.0); Alkaline Phosphatase 74 U/L (38-126); Anion Gap 8 mmol/L; Blood Urea Nitrogen 22 mg/dL (7-17); Calcium 9.4 mg/dL (8.4-10.2); Carbon Dioxide 26 mmol/L (22-30); Chloride 103 mmol/L (98-107); Glucose 263 mg/dL (74-99); Magnesium 1.5 mg/dL (1.6-2.3); Non-African American GFR(CKD) >90 (>60 ml/min/1.73 sqM); Phosphorus 1.7 mg/dL (2.5-4.5); Potassium 3.5 mmol/L (3.5-5.1); Sodium 137 mmol/L (137-145); Total Bilirubin 1.1 mg/dL (0.2-1.3); Total Protein 7.7 g/dL (6.3-8.2)
== END 2023-08-07 06:12 | disposition short-term general hospital (02) | DRG 720 ==
LOC: EC 15:54 → 2SICU 20:07
PROVIDERS: ADMIT Internal Medicine; ATTEND Internal Medicine
PROC: 3E033XZ Introduction of Vasopressor into Peripheral Vein, Percutaneous Approach (ICD-10-PCS; 2023-07-30 12:10)
PROC: 30233N1 Transfusion of Nonautologous Red Blood Cells into Peripheral Vein, Percutaneous Approach (ICD-10-PCS; 2023-07-31)
PROC: 06HY33Z Insertion of Infusion Device into Lower Vein, Percutaneous Approach (ICD-10-PCS; principal; 2023-08-02)
PROC: 0D9670Z Drainage of Stomach with Drainage Device, Via Natural or Artificial Opening (ICD-10-PCS; 2023-08-02)
PROC: 5A0935A Assistance with Respiratory Ventilation, Less than 24 Consecutive Hours, High Flow/Velocity Cannula (ICD-10-PCS; 2023-08-04)
PROC: 3E0436Z Introduction of Nutritional Substance into Central Vein, Percutaneous Approach (ICD-10-PCS; 2023-08-05)
DX: A41.89 Other specified sepsis (principal); J80 Acute respiratory distress syndrome; N17.0 Acute kidney failure with tubular necrosis; R65.21 Severe sepsis with septic shock; I50.23 Acute on chronic systolic (congestive) heart failure; K56.600 Partial intestinal obstruction, unspecified as to cause; D61.818 Other pancytopenia; E22.2 Syndrome of inappropriate secretion of antidiuretic hormone; I42.9 Cardiomyopathy, unspecified; S32.039A Unspecified fracture of third lumbar vertebra, initial encounter for closed fracture; C90.00 Multiple myeloma not having achieved remission; J84.9 Interstitial pulmonary disease, unspecified; F31.9 Bipolar disorder, unspecified; D46.9 Myelodysplastic syndrome, unspecified; I48.0 Paroxysmal atrial fibrillation; G93.41 Metabolic encephalopathy; I31.39 Other pericardial effusion (noninflammatory); E87.21 Acute metabolic acidosis; E83.39 Other disorders of phosphorus metabolism; D51.9 Vitamin B12 deficiency anemia, unspecified; K57.92 Diverticulitis of intestine, part unspecified, without perforation or abscess without bleeding; M47.812 Spondylosis without myelopathy or radiculopathy, cervical region; K52.89 Other specified noninfective gastroenteritis and colitis; F17.210 Nicotine dependence, cigarettes, uncomplicated; G89.29 Other chronic pain; M54.50 Low back pain, unspecified; R59.0 Localized enlarged lymph nodes; M62.830 Muscle spasm of back; B95.2 Enterococcus as the cause of diseases classified elsewhere; K21.9 Gastro-esophageal reflux disease without esophagitis; N28.9 Disorder of kidney and ureter, unspecified; E87.5 Hyperkalemia; E83.42 Hypomagnesemia; E86.0 Dehydration; E87.6 Hypokalemia; F41.9 Anxiety disorder, unspecified; M51.46 Schmorl's nodes, lumbar region; Z16.24 Resistance to multiple antibiotics; Z16.19 Resistance to other specified beta lactam antibiotics; D75.89 Other specified diseases of blood and blood-forming organs; K59.09 Other constipation; T85.49XA Other mechanical complication of breast prosthesis and implant, initial encounter; Y81.2 Prosthetic and other implants, materials and accessory general- and plastic-surgery devices associated with adverse incidents; Z78.1 Physical restraint status; Z79.01 Long term (current) use of anticoagulants; Z86.711 Personal history of pulmonary embolism; Z81.8 Family history of other mental and behavioral disorders; Z11.52 Encounter for screening for COVID-19; Z79.899 Other long term (current) drug therapy; Z90.49 Acquired absence of other specified parts of digestive tract; Z87.19 Personal history of other diseases of the digestive system; T42.6X5S Adverse effect of other antiepileptic and sedative-hypnotic drugs, sequela
CPT/HCPCS: 36410; 36415; 36600; 51702; 70450; 71045; 71250; 72125; 74022; 74176; 74250; 76700; 76705; 76937; 80048; 80053; 80074; 80143; 80179; 80183; 80306; 80320; 81001; 82009; 82140; 82330; 82525; 82533; 82550; 82607; 82746; 82784; 82803; 82805; 83010; 83036; 83540; 83550; 83605; 83615; 83735; 83883; 83921; 83930; 83935; 84100; 84132; 84145; 84165; 84300; 84439; 84443; 84478; 84484; 84600; 85025; 85027; 85045; 85379; 85384; 85610; 85652; 85730; 86022; 86038; 86140; 86334; 86431; 86850; 86880; 86900; 86901; 86920; 87040; 87077; 87086; 87186; 87390; 87636; 93005; 93306; 96361; 96365; 96375; 99291

== ENCOUNTER 2023-09-11 16:00 | Inpatient (IN) | payer OTHER ==
--- NOTE | 2023-09-11 16:52 | ED ---
General Adult HPI - General Chief complaint: Recheck/Abnormal Lab/Rx Stated complaint: ABN labs Time Seen by Provider: 09/11/23 16:13 Source: patient, EMS, RN notes reviewed, old records reviewed Mode of arrival: EMS Limitations: no limitations - History of Present Illness Initial comments: 63-year-old female presenting from the correction for evaluation of low sodium and low potassium. Patient had completed a bowel prep over the past 48 hours for scheduled colonoscopy. She was unable to perform the colonoscopy secondary to incomplete prep. She had laboratory testing which revealed a low sodium and low potassium and was sent to the emergency department. The patient has no new complaints. - Related Data Home Medications Medication Instructions Recorded Confirmed ALPRAZolam [Xanax] 1 mg PO TID PRN 05/25/22 09/11/23 OXcarbazepine [Trileptal] 300 mg PO Q8H 05/25/22 09/11/23 Apixaban [Eliquis] 5 mg PO BID 03/08/23 09/11/23 Cyanocobalamin (Vitamin B-12) 1,000 mcg PO DAILY 03/08/23 09/11/23 [Vitamin B-12] Omeprazole 40 mg PO DAILY 03/08/23 09/11/23 QUEtiapine [SEROquel] 1,200 mg PO HS 03/08/23 09/11/23 methocarbamoL [Robaxin] 500 mg PO Q8H PRN 07/29/23 09/11/23 Acetaminophen Tab [Tylenol] 650 mg PO Q4H PRN 09/11/23 09/11/23 Amiodarone [Cordarone] 200 mg PO DAILY 09/11/23 09/11/23 Cholecalciferol [Vitamin D3 (125 125 mcg PO DAILY 09/11/23 09/11/23 Mcg = 5000 Iu)] Lactulose [Cephulac] 10 gm PO BID 09/11/23 09/11/23 Potassium Chloride ER [K-Dur 10] 10 meq PO DAILY 09/11/23 09/11/23 oxyCODONE-APAP 5-325MG [Percocet 1 tab PO TID 09/11/23 09/11/23 5-325 mg] Allergies Allergy/AdvReac Type Severity Reaction Status Date / Time No Known Allergies Allergy Verified 09/11/23 17:06 Review of Systems ROS Statement: Those systems with pertinent positive or pertinent negative responses have been documented in the HPI. ROS Other: All systems not noted in ROS Statement are negative. Past Medical History Past Medical History: GERD/Reflux, Pulmonary Embolus (PE) Additional Past Medical History / Comment(s): CHANGE IN BOWEL MOVEMENTS., HAVING PAIN IN STOMACH ,REFLUX WITH NAUSEA AND VOMITING. History of Any Multi-Drug Resistant Organisms: None Reported Past Surgical History: Appendectomy, Bowel Resection, Breast Surgery, Section, Cholecystectomy, Hernia Repair, Tubal Ligation Additional Past Surgical History / Comment(s): HERNIATED BOWEL REQUIRED BOWEL RESECTION., BREAST IMPLANTS, Pt. states "L breast imploded and the R implant needs to be removed. Past Anesthesia/Blood Transfusion Reactions: No Reported Reaction Additional Past Anesthesia/Blood Transfusion Reaction / Comment(s): HX OF BLOOD TRANSFUSION-NO REACTION Past Psychological History: Anxiety, Bipolar, Depression Smoking Status: Current every day smoker Past Alcohol Use History: None Reported Past Drug Use History: None Reported - Past Family History Mother Family Medical History: No Reported History Father Additional Family Medical History / Comment(s): COMMITTED SUICIDE AT AGE 28 General Exam General appearance: alert, in no apparent distress Head exam: Present: atraumatic, normocephalic Eye exam: Present: normal appearance, PERRL ENT exam: Present: mucous membranes dry Neck exam: Present: normal inspection. Absent: tenderness, meningismus Respiratory exam: Present: normal lung sounds bilaterally. Absent: respiratory distress, wheezes Cardiovascular Exam: Present: regular rate, normal rhythm GI/Abdominal exam: Present: soft. Absent: distended, tenderness Neurological exam: Present: alert, oriented X3, CN II-XII intact. Absent: motor sensory deficit Skin exam: Present: warm, dry, intact. Absent: cyanosis, diaphoretic Course Vital Signs 09/11/23 09/11/23 16:01 16:59 Temperature 98.1 F Pulse Rate 92 92 Respiratory 18 18 Rate Blood Pressure 80/50 92/53 O2 Sat by Pulse 96 94 L Oximetry Medical Decision Making - Medical Decision Making Was pt. sent in by a medical professional or institution (, PA, KISS MACHINE OPERATOR, urgent care, hospital, or correction...) When possible be specific @ -No Did you speak to anyone other than the patient for history (EMS, parent, family, police, friend...)? What history was obtained from this source @ -No Did you review nursing and triage notes (agree or disagree)? Why? @ -I reviewed and agree with nursing and triage notes Were old charts reviewed (outside hosp., previous admission, EMS record, old EKG, old radiological studies, urgent care reports/EKG's, correction records)? Report findings @ -No old charts were reviewed Differential Diagnosis electrolyte abnormality, abnormal labs. Dehydration EKG interpreted by me (3pts min.). @ -Sinus rhythm low voltage rate is 91, NC interval 164, QRS duration 113, QTc [address] segment elevation. X-rays interpreted by me (1pt min.). @ -None done CT interpreted by me (1pt min.). @ -None done U/S interpreted by me (1pt. min.). @ -None done What testing was considered but not performed or refused? (CT, X-rays, U/S, labs)? Why? @ -None What meds were considered but not given or refused? Why? @ -None Did you discuss the management of the patient with other professionals (professionals i.e. , PA, KISS MACHINE OPERATOR, lab, RT, psych nurse, social science teacher, vault worker, teacher, donor relations officer, counseling case manager)? Give summary @ -No Was smoking cessation discussed for >3mins.? @ -No Was critical care preformed (if so, how long)? @ -No Were there social determinants of health that impacted care today? How? (Homelessness, low income, unemployed, alcoholism, drug addiction, transportation, low edu. Level, literacy, decrease access to med. care, halfway, rehab)? @ -No Was there de-escalation of care discussed even if they declined (Discuss DNR or withdrawal of care, Hospice)? DNR status @ -No What co-morbidities impacted this encounter? (DM, HTN, Smoking, COPD, CAD, Cancer, CVA, ARF, Chemo, Hep., AIDS, mental health diagnosis, sleep apnea, morbid obesity)? @ -Chronic debility Was patient admitted / discharged? Hospital course, mention meds given and route, prescriptions, significant lab abnormalities, going to OR and other pertinent info. @63-year-old female presenting with abnormal outpatient labs. Patient is hyponatremic at 128, hypokalemic at 2.7 she also has hypomagnesemic at 1.1 and calcium is low at 6.7. All these electrolytes are replaced and patient will be monitored on telemetry overnight. Repeat laboratory testing in the morning. Case discussed with Mari aguayo for [facility]. Undiagnosed new problem with uncertain prognosis? @ -No Drug Therapy requiring intensive monitoring for toxicity (Heparin, Nitro, Insulin, Cardizem)? @ -No Were any procedures done? @ -No Diagnosis/symptom? @ -Hypomagnesemia, hypokalemia, hyponatremia hypocalcemia Acute, or Chronic, or Acute on Chronic? @ -Default Uncomplicated (without systemic symptoms) or Complicated (systemic symptoms)? @ -[complicated Side effects of treatment? @ -No Exacerbation, Progression, or Severe Exacerbation? @ -No Poses a threat to life or bodily function? How? (Chest pain, [place], [place], pneumonia, PE, COPD, DKA, ARF, appy, cholecystitis, CVA, Diverticulitis, Homicidal, Suicidal, threat to staff... and all critical care pts) @ -yes, arrhythmia - Lab Data Result diagrams: 09/11/23 17:02 09/11/23 17:02 Lab Results 09/11/23 09/11/23 Range/Units 17:02 17:02 WBC 3.7 L (3.8-10.6) k/uL RBC 2.73 L (3.80-5.40) m/uL Hgb 8.5 L (11.4-16.0) gm/dL Hct 26.2 L (34.0-46.0) % MCV 96.3 (80.0-100.0) fL MCH 31.1 (25.0-35.0) pg MCHC 32.3 (31.0-37.0) g/dL RDW 19.8 H (11.5-15.5) % Plt Count 313 (150-450) k/uL MPV 7.9 Neutrophils % 72 % Lymphocytes % 20 % Monocytes % 4 % Eosinophils % 1 % Basophils % 0 % Neutrophils # 2.7 (1.3-7.7) k/uL Lymphocytes # 0.7 L (1.0-4.8) k/uL Monocytes # 0.1 (0-1.0) k/uL Eosinophils # 0.0 (0-0.7) k/uL Basophils # 0.0 (0-0.2) k/uL Poikilocytosis Slight Anisocytosis Slight Macrocytosis Slight Sodium 128 L (137-145) mmol/L Potassium 2.7 L* (3.5-5.1) mmol/L Chloride 100 (98-107) mmol/L Carbon Dioxide 20 L (22-30) mmol/L Anion Gap 8 mmol/L BUN 13 (7-17) mg/dL Creatinine 0.50 L (0.52-1.04) mg/dL Est GFR (CKD-EPI)AfAm >90 (>60 ml/min/1.73 sqM) Est GFR (CKD-EPI)NonAf >90 (>60 ml/min/1.73 sqM) Glucose 84 (74-99) mg/dL Calcium 6.7 L (8.4-10.2) mg/dL Magnesium 1.1 L (1.6-2.3) mg/dL Total Bilirubin 0.2 (0.2-1.3) mg/dL AST 15 (14-36) U/L ALT 11 (4-34) U/L Alkaline Phosphatase 114 (38-126) U/L Total Protein 4.3 L (6.3-8.2) g/dL Albumin 1.8 L (3.5-5.0) g/dL Disposition Clinical Impression: Hyponatremia, Hypokalemia, Hypomagnesemia Disposition: ADMITTED IP TO THIS [facility] Condition: Stable Is patient prescribed a controlled substance at d/c from ED?: No Referrals: None,Stated [Primary Care Provider] - 1-2 days Time of Disposition: 18:58
[2023-09-11] MEDS: SODIUM CHLORIDE 0.9% 1,000 ML IV ONE (16:58)
[2023-09-11 17:10] LABS: Anisocytosis Slight; Basophils % (A) 0 %; Eosinophils % (A) 1 %; HCT 26.2 % (34.0-46.0); HGB 8.5 gm/dL (11.4-16.0); Lymphocytes # (A) 0.7 k/uL (1.0-4.8); Lymphocytes % (A) 20 %; MCH 31.1 pg (25.0-35.0); MCHC 32.3 g/dL (31.0-37.0); MCV 96.3 fL (80.0-100.0); Macrocytosis Slight; Mean Platelet Volume 7.9; Monocytes # (A) 0.1 k/uL (0-1.0); Monocytes % (A) 4 %; Neutrophils # (A) 2.7 k/uL (1.3-7.7); Neutrophils % (A) 72 %; Platelet Count 313 k/uL (150-450); Poikilocytosis Slight; RBC 2.73 m/uL (3.80-5.40); RDW 19.8 % (11.5-15.5); WBC 3.7 k/uL (3.8-10.6)
[2023-09-11 17:20] LABS: ALT 11 U/L (4-34); AST 15 U/L (14-36); African American GFR (CKD) >90 (>60 ml/min/1.73 sqM); Albumin 1.8 g/dL (3.5-5.0); Alkaline Phosphatase 114 U/L (38-126); Anion Gap 8 mmol/L; Blood Urea Nitrogen 13 mg/dL (7-17); Calcium 6.7 mg/dL (8.4-10.2); Carbon Dioxide 20 mmol/L (22-30); Chloride 100 mmol/L (98-107); Glucose 84 mg/dL (74-99); Magnesium 1.1 mg/dL (1.6-2.3); Non-African American GFR(CKD) >90 (>60 ml/min/1.73 sqM); Sodium 128 mmol/L (137-145); Total Bilirubin 0.2 mg/dL (0.2-1.3); Total Protein 4.3 g/dL (6.3-8.2)
[2023-09-11 17:32] LABS: Potassium 2.7 mmol/L (3.5-5.1)
[2023-09-11] MEDS: POTASSIUM CHLORIDE ER 20 MEQ TAB.ER PO STA (17:59)
[2023-09-11] MEDS: SODIUM CHLORIDE 0.9% 1,000 ML IV SCH (18:01)
[2023-09-11] MEDS: MAGNESIUM SULFATE-D5W PMX 1 GM in DEXTROSE/WATER 1 100ML.BAG IVPB SCH (18:02)
[2023-09-11] MEDS ORDERED: NALOXONE 0.4 MG/ML 1 ML VIAL IV PRN (18:55)
[2023-09-11] MEDS: POTASSIUM CHLORIDE 10 MEQ in WATER FOR INJECTION 1 100ML.BAG IVPB SCH (18:55)
[2023-09-11] MEDS: CALCIUM GLUCONATE IN NACL 1 GM in SALINE 1 100ML.BAG IVPB ONE (18:58)
[2023-09-11] MEDS: APIXABAN 5 MG TAB PO SCH (21:45)
[2023-09-11] MEDS: oxyCODONE-APAP 5-325MG 1 EACH TAB PO SCH (21:45)
[2023-09-11] MEDS: OXcarbazepine 300 MG TAB PO SCH (21:46)
[2023-09-11] MEDS: QUEtiapine 400 MG TAB PO SCH (21:46)
[2023-09-11] MEDS: LACTULOSE 20 GM/30 ML CUP PO SCH (21:49)
[2023-09-11] MEDS: PANTOPRAZOLE 40 MG/10 ML VIAL IVP SCH (21:51)
[2023-09-12] MEDS: ALPRAZolam 0.5 MG TAB PO PRN
[2023-09-12] MEDS: ONDANSETRON 4 MG/2 ML VIAL IVP PRN (06:39)
--- NOTE | 2023-09-12 07:43 | P.HPIM ---
History of Present Illness This is a pleasant 63 years old female with past medical history of multiple medical problems as below including history of bipolar and schizophrenia, history of pulmonary embolism on Eliquis, patient was recently in the hospitalized in this facility about once days for acute Neutropenic sepsis,she was discharged to [facility] also she has been treated for bowel obstruction and she has been followed by surgery team with Dr. Maynard at that time. Patient states that she has history of chronic back pain and difficulty walking for the last 2 months also, she states it is in the lumbar 3 and lumbar 4 spine vertebrae Patient was sent from [facility] because of abnormal labs and low potassium and sodium, patient states that they checked it routinely. Also she states that she has been having preparation about 2 days ago. And for the last 2 days she has been having frequent bowel movement about 10 times, she was feeling dizzy with low blood pressure and she was sent to the emergency room. Patient currently she is calm sitting up in bed complaining from some abdominal pain and discomfort. She states she vomited once. She denies chest pain or dyspnea Also patient complains from increased frequency of urination and suprapubic pain and tenderness No headache weakness or numbness Patient denies smoking alcohol or illicit drug Patient denies hallucination depression suicidal or homicidal ideation Patient is hemodynamically stable and afebrile Labs showed low sodium 128 low potassium 2.8 and low magnesium 1.1 She has chronic leukopenia and currently 3.7, chronic anemia currently 8.5 at baseline LFTs unremarkable EKG shows sinus rhythm at [address]-T changes Review of Systems Review of systems CONSTITUTIONAL: No fever, no malaise, no fatigue. HEENT: No recent visual problems or hearing problems. Denied any sore throat. CARDIOVASCULAR: No orthopnea, PND, no palpitations, no syncope. PULMONARY: No shortness of breath, no cough, no hemoptysis. -GASTROINTESTINAL: as abov e . Normoactive bowel sounds. NEUROLOGICAL: No headaches, no weakness, no numbness. HEMATOLOGICAL: Denies any bleeding or petechiae. GENITOURINARY: Denies any burning micturition, or urgency. MUSCULOSKELETAL/RHEUMATOLOGICAL: Denies any joint pain, swelling, or any muscle pain. ENDOCRINE: Denies any polyuria or polydipsia. Past Medical History Past Medical History: Atrial Fibrillation, Blood Disorder, GERD/Reflux, Pulmonary Embolus (PE) Additional Past Medical History / Comment(s): Anemia, Recent back fx (August 2023), Intubated at [facility] (August 2023), Low BPs History of Any Multi-Drug Resistant Organisms: None Reported Past Surgical History: Appendectomy, Bowel Resection, Breast Surgery, Section, Cholecystectomy, Hernia Repair, Tubal Ligation Additional Past Surgical History / Comment(s): HERNIATED BOWEL REQUIRED BOWEL RESECTION., BREAST IMPLANTS, Pt. states "L breast imploded and the R implant needs to be removed." Past Anesthesia/Blood Transfusion Reactions: No Reported Reaction Additional Past Anesthesia/Blood Transfusion Reaction / Comment(s): HX OF BLOOD TRANSFUSION-NO REACTION Past Psychological History: Anxiety, Bipolar, Depression Additional Psychological History / Comment(s): manic episodes Smoking Status: Former smoker Past Alcohol Use History: None Reported Additional Past Alcohol Use History / Comment(s): . Past Drug Use History: None Reported - Past Family History Mother Family Medical History: No Reported History Father Additional Family Medical History / Comment(s): COMMITTED SUICIDE AT AGE 28 Medications and Allergies Home Medications Medication Instructions Recorded Confirmed Type RX: ALPRAZolam [Xanax] 1 mg PO TID PRN 05/25/22 09/11/23 History RX: OXcarbazepine [Trileptal] 300 mg PO Q8H 05/25/22 09/11/23 History Apixaban [Eliquis] 5 mg PO BID 03/08/23 09/11/23 History Cyanocobalamin (Vitamin B-12) 1,000 mcg PO DAILY 03/08/23 09/11/23 History [Vitamin B-12] QUEtiapine [SEROquel] 1,200 mg PO HS 03/08/23 09/11/23 History RX: Omeprazole 40 mg PO DAILY 03/08/23 09/11/23 History methocarbamoL [Robaxin] 500 mg PO Q8H PRN 07/29/23 09/11/23 History Acetaminophen Tab [Tylenol] 650 mg PO Q4H PRN 09/11/23 09/11/23 History Amiodarone [Cordarone] 200 mg PO DAILY 09/11/23 09/11/23 History Cholecalciferol [Vitamin D3 (125 125 mcg PO DAILY 09/11/23 09/11/23 History Mcg = 5000 Iu)] Lactulose [Cephulac] 10 gm PO BID 09/11/23 09/11/23 History Potassium Chloride ER [K-Dur 10] 10 meq PO DAILY 09/11/23 09/11/23 History oxyCODONE-APAP 5-325MG [Percocet 1 tab PO TID 09/11/23 09/11/23 History 5-325 mg] Allergies Allergy/AdvReac Type Severity Reaction Status Date / Time No Known Allergies Allergy Verified 09/11/23 17:06 Physical Exam Vitals: Vital Signs Temp Pulse Pulse Resp BP BP BP 09/12/23 05:00 101 H 16 106/65 09/12/23 02:00 67 16 09/12/23 01:30 97.5 F L 67 16 112/76 09/11/23 23:54 98.6 F 97 16 87/55 87/57 09/11/23 22:00 98 16 124/69 09/11/23 19:43 97 18 105/69 09/11/23 16:59 92 18 92/53 09/11/23 16:01 98.1 F 92 18 80/50 Pulse Ox 09/12/23 05:00 98 09/12/23 02:00 09/12/23 01:30 100 09/11/23 23:54 97 09/11/23 22:00 94 L 09/11/23 19:43 95 09/11/23 16:59 94 L 09/11/23 16:01 96 Intake and Output 09/11/23 09/12/23 09/12/23 22:59 06:59 14:59 Output Total 500 Balance -500 Output: Urine 500 Other: Voiding Method External Catheter # Bowel Movements 1 Weight 57.606 kg 57.606 kg GENERAL: The patient is alert and oriented x3, not in any acute distress. Well developed, well nourished. HEENT: Pupils are round and equally reacting to light. EOMI. No scleral icterus. No conjunctival pallor. Normocephalic, atraumatic. No pharyngeal erythema. No thyromegaly. CARDIOVASCULAR: S1 and S2 present. No murmurs, rubs, or gallops. PULMONARY: Chest is clear to auscultation, no wheezing , no crackles. ABDOMEN: Soft, tenderness in the suprapubic area more than tenderness in the epigastric area, no guarding or rebound tenderness, nondistended, normoactive bowel sounds. No palpable organomegaly. MUSCULOSKELETAL: No joint swelling or deformity. EXTREMITIES: No cyanosis, clubbing, or pedal edema. NEUROLOGICAL: Gross neurological examination did not reveal any focal deficits. SKIN: No rashes. no petechiae. Results CBC & Chem 7: 09/11/23 17:02 09/11/23 17:02 Labs: Abnormal Lab Results - Last 24 Hours (Table) 09/11/23 09/11/23 Range/Units 17: 17:02 WBC 3.7 L (3.8-10.6) k/uL RBC 2.73 L (3.80-5.40) m/uL Hgb 8.5 L (11.4-16.0) gm/dL Hct 26.2 L (34.0-46.0) % RDW 19.8 H (11.5-15.5) % Lymphocytes # 0.7 L (1.0-4.8) k/uL Sodium 128 L (137-145) mmol/L Potassium 2.7 L* (3.5-5.1) mmol/L Carbon Dioxide 20 L (22-30) mmol/L Creatinine 0.50 L (0.52-1.04) mg/dL Calcium 6.7 L (8.4-10.2) mg/dL Magnesium 1.1 L (1.6-2.3) mg/dL Total Protein 4.3 L (6.3-8.2) g/dL Albumin 1.8 L (3.5-5.0) g/dL Thrombosis Risk Factor Assmnt - Choose All That Apply Any of the Below Risk Factors Present?: Yes Each Factor Represents 1 point: Medical pt on bed rest Other Risk Factors: Yes Each Risk Factor Represents 2 Points: Age 61-74 years Each Risk Factor Represents 3 Points: History of DVT/PE Thrombosis Risk Factor Assessment Total Risk Factor Score: 6 Thrombosis Risk Factor Assessment Level: High Risk Assessment and Plan Assessment: possible Acute gastroenteritis versus or exacerbated by bowel preparation for colonoscopy Suprapubic pain tenderness increased frequency of urination. Rule out UTI chronic back pain and difficulty walking for the last 2 months Atrial fibrillation on Eliquis pulmonary embolism, currently on Eliquis at home Patient history of neutropenic colitis and sigmoid colitis with pancytopenia and bacteremia secondary to Enterobacter cloacae. Schizophrenia, bipolar disorder, currently not an active issue History of bowel resection and cholecystectomy Plan: Continue with Bowel rest Continue with IV hydration Start lactulose. Check C. difficile although the suspicion of infection is low. Consult surgery team Check urine analysis and bladder scan Replace electrolytes and continue close monitoring Continue Eliquis Check chest x-ray Check proCalcitonin Labs and medication were reviewed.. Continue same treatment. Continue with symptomatic treatment. Resume home medication. Monitor labs and vitals. DVT and GI prophylaxis. Further recommendations as per clinical course of the patient DVT prophylaxis: Eliquis GI Prophylaxis: Ppi Prognosis is guarded
[2023-09-12] MEDS: MAGNESIUM SULFATE-D5W PMX 1 GM in DEXTROSE/WATER 1 100ML.BAG IVPB ONE (09:15)
[2023-09-12] MEDS: CYANOCOBALAMIN 500 MCG TAB PO SCH (09:16)
[2023-09-12] MEDS: CHOLECALCIFEROL 125 MCG (5000 IU) TABLET PO SCH (09:16)
[2023-09-12] MEDS: AMIODARONE 200 MG TAB PO SCH (09:16)
[2023-09-12] MEDS: POTASSIUM CHLORIDE ER 10 MEQ TAB.ER.PRT PO SCH (09:19)
[2023-09-12 09:36] LABS: African American GFR (CKD) >90 (>60 ml/min/1.73 sqM); Anion Gap 7 mmol/L; Blood Urea Nitrogen 10 mg/dL (7-17); Carbon Dioxide 20 mmol/L (22-30); Chloride 101 mmol/L (98-107); Glucose 98 mg/dL (74-99); Magnesium 1.5 mg/dL (1.6-2.3); Non-African American GFR(CKD) >90 (>60 ml/min/1.73 sqM); Potassium 4.3 mmol/L (3.5-5.1); Sodium 128 mmol/L (137-145)
[2023-09-12] MEDS: methocarbamoL 500 MG TAB PO PRN (10:02)
[2023-09-12] MEDS: ALPRAZolam 1 MG TAB PO PRN (10:02)
--- NOTE | 2023-09-12 11:04 | XR ---
EXAMINATION TYPE: XR chest 1V DATE OF EXAM: 09/12/2023 COMPARISON: 08/06/2023 HISTORY: Shortness of breath TECHNIQUE: Single frontal view of the chest is obtained. FINDINGS: Left-sided consolidation with cardiac enlargement. Small pleural effusion. No pneumothorax . Diffuse osteopenia. Bilateral perihilar densities\infiltrate suspected. Previous breast surgery not ed. IMPRESSION: Limited exam demonstrates persistent bilateral infiltrates.
[2023-09-12] MEDS: IOPAMIDOL CONTRAST (ORAL USE) VIAL PO PRN (11:10)
[2023-09-12] MEDS: SODIUM CHLORIDE 0.9% 500 ML 500 ML IV ONE (11:30)
--- NOTE | 2023-09-12 13:58 | CT ---
EXAMINATION TYPE: CT abdomen pelvis w con DATE OF EXAM: 09/12/2023 COMPARISON: 08/01/2023 INDICATION: abdominal pain and bloating DLP: 767.2 mGycm, Automated exposure control for dose reduction was used. CONTRAST: 100ml mL of Isovue 300. Study performed with Oral Contrast TECHNIQUE: Axial images were obtained from above the diaphragm to the pubic rami in the axial plane a t 5 mm thick sections. Reconstructed images are reviewed on the computer in the coronal plane. FINDINGS: Limited CT sections are obtained the lung bases. Small to moderate pericardial effusion is present.. CT ABDOMEN: Liver: Normal Spleen: Normal Pancreas: Normal Adrenal glands: The adrenal glands are normal. Gallbladder: Surgically absent Kidneys: No masses are evident. No hydronephrosis is present. No cysts are present. Delayed images were obtained through the kidneys, which remain unremarkable. Aorta: Vascular calcification is within the aorta. Inferior vena cava: Normal. CT PELVIS: There are dilated small bowel loops containing fluid. The colon is dilated with fluid. No zone of tra nsition is identified. Some mild thickening of the descending colon sigmoid colon junction may be pre sent. No adjacent inflammatory changes are evident. Study is performed without significant oral contr ast. Small amount of contrast within the fundus of the stomach. Appendix: Not identified. No dilated tubular structure or inflammatory changes evident. Urinary bladder: Normal. Genitourinary structures: Uterus is normal. Adnexa are normal. Osseous structures: No suspicious lytic or sclerotic lesions. Superior endplate changes are present i n L3 IMPRESSION: 1. Dilated small bowel loops with prominent colon with multiple air-fluid levels. Correlate for ileu s. Gastroenteritis could be considered.
[2023-09-12 14:59] LABS: Appearance,Urine Clear (Clear); Bilirubin,Urine Negative (Negative); Blood,Urine Negative (Negative); Color,Urine Colorless; Glucose,Urine (UA) Negative (Negative); Ketones,Urine Negative (Negative); Leukocyte Esterase,Urine Negative (Negative); Nitrite,Urine Negative (Negative); Protein,Urine Negative (Negative); Urobilinogen,Urine <2.0 mg/dL (<2.0)
[2023-09-12] MEDS: metroNIDAZOLE-NS PMX 500 MG in SALINE 1 100ML.BAG IVPB SCH (15:41)
--- NOTE | 2023-09-12 16:19 | P.GSCN ---
History of Present Illness Consult date: 09/12/23 History of present illness: CHIEF COMPLAINT: Abdominal pain HISTORY OF PRESENT ILLNESS: This is a 63-year-old female who presented from the care home with low sodium and low potassium. She completed a bowel prep a couple days ago for scheduled colonoscopy. Patient reports the colonoscopy was sent with a Dr. Frye out of [facility]. The bowel prep was poor and therefore they canceled the colonoscopy to be done at a later time. Patient reports that her abdomen feels distended. She has been having diffuse abdominal pain and episodes of vomiting. Patient had a recent hospitalization in July with colitis, small bowel obstruction and was neutropenic at that time patient was transferred to [facility]. Patient is poor historian unable to get very many details. She does have a surgical history of appendectomy, , bowel resection and cholecystectomy. She is on Eliquis for PE. She did have a low sodium, potassium magnesium on admission and they are being replaced. Surgical service consulted in regards to patient's abdominal pain. She does report having bowel movements and flatus. PAST MEDICAL HISTORY: See list. PAST SURGICAL HISTORY: See list. MEDICATIONS: See list. ALLERGIES: See list. SOCIAL HISTORY: No illicit drug use. REVIEW OF SYSTEMS: CONSTITUTIONAL: Denies fever or chills. HEENT: Denies blurred vision, vision changes, or eye pain. Denies hemoptysis ENDOCRINE: Denies heat or cold intolerance. CARDIOVASCULAR: Denies chest pain or pressure. RESPIRATORY: No shortness of breath. GASTROINTESTINAL: Please refer to HPI otherwise unremarkable NEURO: Denies history of seizures. PSYCH: No depression or suicidal ideation HEMATOLOGIC: Denies bleeding disorders. LYMPHATIC: The patient denies any lumps and bumps around the neck. GENITOURINARY: Denies any blood in urine or increased urinary frequency. MUSCULOSKELETAL: Denies myalgias. Denies joint swelling. Denies decreased range of motion beyond patients baseline. SKIN: Denies pruitis. Denies rash. PHYSICAL EXAM: VITAL SIGNS: Reviewed GENERAL: Well-developed in no acute distress. HEENT: No sclera icterus. Extraocular movements grossly intact. Moist buccal mucosa. Head is atraumatic, normocephalic. Hears conversational speech. No nasal drainage. NECK: Supple without lymphadenopathy. CHEST: Non-labored respirations and equal bilateral excursions. CARDIOVASCULAR: Palpable 2+ radial pulses. ABDOMEN: Distended. Diffuse tenderness. MUSCULOSKELETAL: No clubbing or cyanosis. NEUROLOGIC: No focal or lateralizing signs. Cranial nerves II through XII grossly intact. PSYCH: Appropriate affect. Alert and oriented to person, place and time. SKIN: Well perfused. Good skin turgor. LABORATORY DATA: WBC 3.7 Hgb 8.5 platelets 313 Sodium is 128 potassium 2.7 up to 4.3 creatinine 0.51 Magnesium 1.1 up to 1.5 IMAGING: ASSESSMENT: 1. Diffuse abdominal pain with abdominal distention and nausea and vomiting 2. Electrolyte imbalance with hypokalemia, hyponatremia and hypomagnesemia PLAN: -CT scan abdomen pelvis with contrast ordered for further evaluation of patient's abdominal pain and vomiting -Continue to correct electrolytes -Continue supportive care -Downgrade diet to full liquids -Continue IV fluids -Further recommendations forthcoming per surgeon Physician [facility] Nursing Director note has been reviewed by physician. Signing provider agrees with the documented findings, assessment, and plan of care. Past Medical History Past Medical History: Atrial Fibrillation, Blood Disorder, GERD/Reflux, Pulmonary Embolus (PE) Additional Past Medical History / Comment(s): Anemia, Recent back fx (August 2023), Intubated at [facility] (August 2023), Low BPs History of Any Multi-Drug Resistant Organisms: None Reported Past Surgical History: Appendectomy, Bowel Resection, Breast Surgery, Section, Cholecystectomy, Hernia Repair, Tubal Ligation Additional Past Surgical History / Comment(s): HERNIATED BOWEL REQUIRED BOWEL RESECTION., BREAST IMPLANTS, Pt. states "L breast imploded and the R implant needs to be removed." Past Anesthesia/Blood Transfusion Reactions: No Reported Reaction Additional Past Anesthesia/Blood Transfusion Reaction / Comm: HX OF BLOOD TRANSFUSION-NO REACTION Past Psychological History: Anxiety, Bipolar, Depression Additional Psychological History / Comment(s): manic episodes Smoking Status: Former smoker Past Alcohol Use History: None Reported Additional Past Alcohol Use History / Comment(s): . Past Drug Use History: None Reported - Past Family History Mother Family Medical History: No Reported History Father Additional Family Medical History / Comment(s): COMMITTED SUICIDE AT AGE 28 Medications and Allergies Home Medications Medication Instructions Recorded Confirmed Type ALPRAZolam [Xanax] 1 mg PO TID PRN 05/25/22 09/11/23 History OXcarbazepine [Trileptal] 300 mg PO Q8H 05/25/22 09/11/23 History Apixaban [Eliquis] 5 mg PO BID 03/08/23 09/11/23 History Cyanocobalamin (Vitamin B-12) 1,000 mcg PO DAILY 03/08/23 09/11/23 History [Vitamin B-12] Omeprazole 40 mg PO DAILY 03/08/23 09/11/23 History QUEtiapine [SEROquel] 1,200 mg PO HS 03/08/23 09/11/23 History methocarbamoL [Robaxin] 500 mg PO Q8H PRN 07/29/23 09/11/23 History Acetaminophen Tab [Tylenol] 650 mg PO Q4H PRN 09/11/23 09/11/23 History Amiodarone [Cordarone] 200 mg PO DAILY 09/11/23 09/11/23 History Cholecalciferol [Vitamin D3 (125 125 mcg PO DAILY 09/11/23 09/11/23 History Mcg = 5000 Iu)] Lactulose [Cephulac] 10 gm PO BID 09/11/23 09/11/23 History Potassium Chloride ER [K-Dur 10] 10 meq PO DAILY 09/11/23 09/11/23 History oxyCODONE-APAP 5-325MG [Percocet 1 tab PO TID 09/11/23 09/11/23 History 5-325 mg] Allergies Allergy/AdvReac Type Severity Reaction Status Date / Time No Known Allergies Allergy Verified 09/11/23 17:06 Surgical - Exam Vital Signs Temp Pulse Resp BP Pulse Ox 98.1 F 92 18 80/50 96 09/11/23 16:01 09/11/23 16:01 09/11/23 16:01 09/11/23 16:01 09/11/23 16:01 Results - Labs 09/11/23 17:02 09/12/23 08:13 Abnormal Lab Results - Last 24 Hours (Table) 09/11/23 09/11/23 09/12/23 Range/Units 17:02 17:02 08:13 WBC 3.7 L (3.8-10.6) k/uL RBC 2.73 L (3.80-5.40) m/uL Hgb 8.5 L (11.4-16.0) gm/dL Hct 26.2 L (34.0-46.0) % RDW 19.8 H (11.5-15.5) % Lymphocytes # 0.7 L (1.0-4.8) k/uL Sodium 128 L 128 L (137-145) mmol/L Potassium 2.7 L* (3.5-5.1) mmol/L Carbon Dioxide 20 L 20 L (22-30) mmol/L Creatinine 0.50 L 0.51 L (0.52-1.04) mg/dL Calcium 6.7 L 8.0 L (8.4-10.2) mg/dL Magnesium 1.1 L 1.5 L (1.6-2.3) mg/dL Total Protein 4.3 L (6.3-8.2) g/dL Albumin 1.8 L (3.5-5.0) g/dL Diabetes panel 09/11/23 09/12/23 Range/Units 17:02 08:13 Sodium 128 L 128 L (137-145) mmol/L Potassium 2.7 L* 4.3 (3.5-5.1) mmol/L Chloride 100 101 (98-107) mmol/L Carbon Dioxide 20 L 20 L (22-30) mmol/L BUN 13 10 (7-17) mg/dL Creatinine 0.50 L 0.51 L (0.52-1.04) mg/dL Glucose 84 98 (74-99) mg/dL Calcium 6.7 L 8.0 L (8.4-10.2) mg/dL AST 15 (14-36) U/L ALT 11 (4-34) U/L Alkaline Phosphatase 114 (38-126) U/L Total Protein 4.3 L (6.3-8.2) g/dL Albumin 1.8 L (3.5-5.0) g/dL Calcium panel 09/11/23 09/12/23 Range/Units 17:02 08:13 Calcium 6.7 L 8.0 L (8.4-10.2) mg/dL Albumin 1.8 L (3.5-5.0) g/dL Pituitary panel 09/11/23 09/12/23 Range/Units 17:02 08:13 Sodium 128 L 128 L (137-145) mmol/L Potassium 2.7 L* 4.3 (3.5-5.1) mmol/L Chloride 100 101 (98-107) mmol/L Carbon Dioxide 20 L 20 L (22-30) mmol/L BUN 13 10 (7-17) mg/dL Creatinine 0.50 L 0.51 L (0.52-1.04) mg/dL Glucose 84 98 (74-99) mg/dL Calcium 6.7 L 8.0 L (8.4-10.2) mg/dL Adrenal panel 09/11/23 09/12/23 Range/Units 17:02 08:13 Sodium 128 L 128 L (137-145) mmol/L Potassium 2.7 L* 4.3 (3.5-5.1) mmol/L Chloride 100 101 (98-107) mmol/L Carbon Dioxide 20 L 20 L (22-30) mmol/L BUN 13 10 (7-17) mg/dL Creatinine 0.50 L 0.51 L (0.52-1.04) mg/dL Glucose 84 98 (74-99) mg/dL Calcium 6.7 L 8.0 L (8.4-10.2) mg/dL Total Bilirubin 0.2 (0.2-1.3) mg/dL AST 15 (14-36) U/L ALT 11 (4-34) U/L Alkaline Phosphatase 114 (38-126) U/L Total Protein 4.3 L (6.3-8.2) g/dL Albumin 1.8 L (3.5-5.0) g/dL
[2023-09-13] MEDS: SODIUM CHLORIDE 0.9% 1,000 ML IV ONE ×2 (00:30→03:25)
[2023-09-13 08:22] LABS: Anisocytosis Slight; Basophils % (A) 0 %; Eosinophils # (A) 0.1 k/uL (0-0.7); Eosinophils % (A) 2 %; HCT 27.2 % (34.0-46.0); HGB 8.5 gm/dL (11.4-16.0); Hypochromasia Marked; Lymphocytes # (A) 0.4 k/uL (1.0-4.8); Lymphocytes % (A) 15 %; MCH 31.7 pg (25.0-35.0); MCHC 31.2 g/dL (31.0-37.0); Macrocytosis Moderate; Mean Platelet Volume 7.5; Monocytes # (A) 0.1 k/uL (0-1.0); Monocytes % (A) 4 %; Neutrophils % (A) 76 %; Platelet Count 282 k/uL (150-450); Poikilocytosis Slight; RBC 2.68 m/uL (3.80-5.40); RDW 19.5 % (11.5-15.5); WBC 2.6 k/uL (3.8-10.6)
[2023-09-13 08:30] LABS: MCV 101.4 fL (80.0-100.0)
[2023-09-13 08:36] LABS: African American GFR (CKD) >90 (>60 ml/min/1.73 sqM); Anion Gap 7 mmol/L; Blood Urea Nitrogen 8 mg/dL (7-17); Calcium 7.6 mg/dL (8.4-10.2); Carbon Dioxide 16 mmol/L (22-30); Chloride 107 mmol/L (98-107); Glucose 97 mg/dL (74-99); Magnesium 1.4 mg/dL (1.6-2.3); Non-African American GFR(CKD) >90 (>60 ml/min/1.73 sqM); Potassium 3.9 mmol/L (3.5-5.1); Sodium 130 mmol/L (137-145)
[2023-09-13] MEDS ORDERED: Magnesium Replacement Protocol 1 EACH MISC MISCELLANE PRN (08:40)
[2023-09-13] MEDS: MAGNESIUM SULFATE-D5W PMX 1 GM in DEXTROSE/WATER 1 100ML.BAG IVPB SCH (09:17)
--- NOTE | 2023-09-13 10:34 | P.PN ---
Subjective Progress Note Date: 09/13/23 NAEON. No N/V. No worsening abdominal pain. No F/C. No SOB or CP. Admits to small amount of flatus, no BM. Objective - Vital Signs Vital signs: Vital Signs Temp 98.1 F 09/13/23 08:00 Pulse 94 09/13/23 08:00 Resp 16 09/13/23 08:00 BP 85/55 09/13/23 08:00 Pulse Ox 97 09/13/23 08:00 FiO2 Intake & Output 09/12/23 09/13/23 09/13/23 18:59 06:59 18:59 Intake Total 476 480 Output Total 885 850 Balance -409 -850 480 Intake: Oral 476 480 Output: Urine 650 850 Post Void Residual 235 Other: Voiding Method External Catheter External Catheter External Catheter # Voids 1 - Exam Gen: AxO, NAD Pulm: non-labored respirations Abd: soft, midlly tender diffusely, mildly distended. No guarding/rebound/rigidity Extrem: no edema seen - Labs CBC & Chem 7: 09/13/23 07:31 09/13/23 07:31 Labs: Abnormal Lab Results - Last 24 Hours (Table) 09/13/23 09/13/23 Range/Units 07:31 07:31 WBC 2.6 L (3.8-10.6) k/uL RBC 2.68 L (3.80-5.40) m/uL Hgb 8.5 L (11.4-16.0) gm/dL Hct 27.2 L (34.0-46.0) % MCV 101.4 H D (80.0-100.0) fL RDW 19.5 H (11.5-15.5) % Lymphocytes # 0.4 L (1.0-4.8) k/uL Sodium 130 L (137-145) mmol/L Carbon Dioxide 16 L (22-30) mmol/L Creatinine 0.43 L (0.52-1.04) mg/dL Calcium 7.6 L (8.4-10.2) mg/dL Magnesium 1.4 L (1.6-2.3) mg/dL Assessment and Plan Assessment: Patient is a 63 year old female who presents with abdominal pain and CT evidence concerning for ileus Plan: -FLD as tolerated -PRN electrolyte replacement -IVF hydration -PRN pain and nausea control -DVT/GI PPx -Care per primary Trell York MD General Surgery
[2023-09-13] MEDS: MIDODRINE 5 MG TAB PO STA (12:53)
--- NOTE | 2023-09-13 13:33 | P.PN ---
Subjective Progress Note Date: 09/13/23 * 63 years old female with past medical history of multiple medical problems as below including history of bipolar and schizophrenia, history of pulmonary embolism on Eliquis, patient was recently in the hospitalized in this facility about once days for acute Neutropenic sepsis,she was discharged to [facility] also she has been treated for bowel obstruction and she has been followed by surgery team with Dr. Maynard at that time. * Patient states that she has history of chronic back pain and difficulty wa lking for the last 2 months also, she states it is in the lumbar 3 and lumbar 4 spine vertebrae * Patient was sent from [facility] because of abnormal labs and low potassium and sodium, patient states that they checked it routinely. * Patient is hemodynamically stable and afebrile * Labs showed low sodium 128 low potassium 2.8 and low magnesium 1.1 * She has chronic leukopenia and currently 3.7, chronic anemia currently 8.5 at baseline * LFTs unremarkable * EKG shows sinus rhythm at [address]-T changes * 09/13/23: Patient seen and evaluated, patient seen by general surgery noted to have significant electrolyte abnormality corrected continue fluid resuscitation, continue supportive care advance diet as tolerated.. CT abdomen pelvis reviewed concern for enteritis. Patient states she does have history of multiple myeloma and was followed up with oncology outpatient continue to have bicytopenia PHYSICAL EXAMINATION: GENERAL: The patient is alert and oriented x3, not in any acute distress. Well developed, well nourished. HEENT: Pupils are round and equally reacting to light. EOMI. No scleral icterus. No conjunctival pallor. Normocephalic, atraumatic. No pharyngeal erythema. No thyromegaly. CARDIOVASCULAR: S1 and S2 present. No murmurs, rubs, or gallops. PULMONARY: Chest is clear to auscultation, no wheezing or crackles. ABDOMEN: Soft, nontender, nondistended, normoactive bowel sounds. No palpable organomegaly. MUSCULOSKELETAL: No joint swelling or deformity. EXTREMITIES: No cyanosis, clubbing, or pedal edema. NEUROLOGICAL: Gross neurological examination did not reveal any focal deficits. SKIN: No rashes. Assessment and plan * Acute gastroenteritis * Shock secondary to hypovolemia * History of neutropenic colitis, sigmoid colitis and pancytopenia * History of chronic systolic heart failure ejection fraction of 40 to 45% * Chronic fibrillation on anticoagulation * History of pulmonary embolism on anticoagulation * Chronic back pain * To gastroenteritis continue patient on IV antibiotic receiving Rocephin and Flagyl infectious disease consulted, stool C. difficile ordered, stool cultures requested * Atrial fibrillation continue patient on amiodarone, continue Eliquis, continue fluid resuscitation follow-up lactate levels ordered * Regards to shock, follow-up lactate levels ordered continue fluid resuscitation * In regards to history of heart failure continue to monitor intake and output continue fluid resuscitation * Regards to chronic back pain will get imaging of spine * Status full code Objective - Vital Signs Vital signs: Vital Signs Temp 98.1 F 09/13/23 08:00 Pulse 94 09/13/23 08:00 Resp 16 09/13/23 08:00 BP 85/55 09/13/23 08:00 Pulse Ox 97 09/13/23 08:00 FiO2 Intake & Output 09/12/23 09/13/23 09/13/23 18:59 06:59 18:59 Intake Total 476 480 Output Total 885 850 Balance -409 -850 480 Intake: Oral 476 480 Output: Urine 650 850 Post Void Residual 235 Other: Voiding Method External Catheter External Catheter # Voids 1 - Labs CBC & Chem 7: 09/13/23 07:31 09/13/23 07:31 Labs: Abnormal Lab Results - Last 24 Hours (Table) 09/13/23 09/13/23 Range/Units 07:31 07:31 WBC 2.6 L (3.8-10.6) k/uL RBC 2.68 L (3.80-5.40) m/uL Hgb 8.5 L (11.4-16.0) gm/dL Hct 27.2 L (34.0-46.0) % MCV 101.4 H D (80.0-100.0) fL RDW 19.5 H (11.5-15.5) % Lymphocytes # 0.4 L (1.0-4.8) k/uL Sodium 130 L (137-145) mmol/L Carbon Dioxide 16 L (22-30) mmol/L Creatinine 0.43 L (0.52-1.04) mg/dL Calcium 7.6 L (8.4-10.2) mg/dL Magnesium 1.4 L (1.6-2.3) mg/dL
[2023-09-13] MEDS: LIDOCAINE 4% PATCH TOPICAL SCH (13:57)
[2023-09-13] MEDS: MIDODRINE 5 MG TAB PO SCH (17:23)
[2023-09-13] MEDS: ALPRAZolam 0.25 MG TAB PO STA (21:15)
--- NOTE | 2023-09-13 22:03 | P.CONS ---
History of Present Illness - Reason for Consult Consult date: 09/13/23 Sepsis, abdominal source Requesting physician: Rudolph Rivera - Chief Complaint Abnormal lab x 1 day - History of Present Illness Patient is a 63-year-old female with a past medical history significant for atrial fibrillation reflux pulmonary embolism presenting to the hospital 2 days ago for evaluation of low sodium and potassium and this patient apparently was getting the bowel prep for scheduled colonoscopy patient did have multiple bowel movements felt dizzy with low blood pressure for the patient was sent to the ER on presentation to the hospital patient was afebrile did have 1 low-grade fever of 99.3 F yesterday morning no fever since then mildly hy potensive but not tachycardic not hypoxic or need for supplemental oxygen patient did have a leukopenia white count 3.7, repeat is 2.6 creatinine was normal potassium was 2.7 is up to 3.9 now liver enzymes normal UA has been negative patient did have a CT abdominal pelvis dilated small bowel loops with prominent colon with multiple air-fluid levels correlate for ileus gastroenteritis could be considered infectious he was consulted today for possible sepsis and abdominal source patient is currently on a combination of ceftriaxone and Flagyl and general surgery is following the patient patient on my evaluation today denies any further worsening of abdominal pain no nausea no vomiting denies any further bowel movement but has been passing some gas Review of Systems Positive point and negatives has been mentioned in the HPI, complete review of systems was performed and all other systems are negative Past Medical History Past Medical History: Atrial Fibrillation, Blood Disorder, GERD/Reflux, Pulmonary Embolus (PE) Additional Past Medical History / Comment(s): Anemia, Recent back fx (August 2023), Intubated at [facility] (August 2023), Low BPs History of Any Multi-Drug Resistant Organisms: None Reported Past Surgical History: Appendectomy, Bowel Resection, Breast Surgery, Section, Cholecystectomy, Hernia Repair, Tubal Ligation Additional Past Surgical History / Comment(s): HERNIATED BOWEL REQUIRED BOWEL RESECTION., BREAST IMPLANTS, Pt. states "L breast imploded and the R implant needs to be removed." Past Anesthesia/Blood Transfusion Reactions: No Reported Reaction Additional Past Anesthesia/Blood Transfusion Reaction / Comm: HX OF BLOOD TRANSFUSION-NO REACTION Past Psychological History: Anxiety, Bipolar, Depression Additional Psychological History / Comment(s): manic episodes Smoking Status: Former smoker Past Alcohol Use History: None Reported Additional Past Alcohol Use History / Comment(s): . Past Drug Use History: None Reported - Past Family History Mother Family Medical History: No Reported History Father Additional Family Medical History / Comment(s): COMMITTED SUICIDE AT AGE 28 Medications and Allergies Home Medications Medication Instructions Recorded Confirmed Type ALPRAZolam [Xanax] 1 mg PO TID PRN 05/25/22 09/11/23 History OXcarbazepine [Trileptal] 300 mg PO Q8H 05/25/22 09/11/23 History Apixaban [Eliquis] 5 mg PO BID 03/08/23 09/11/23 History Cyanocobalamin (Vitamin B-12) 1,000 mcg PO DAILY 03/08/23 09/11/23 History [Vitamin B-12] Omeprazole 40 mg PO DAILY 03/08/23 09/11/23 History QUEtiapine [SEROquel] 1,200 mg PO HS 03/08/23 09/11/23 History methocarbamoL [Robaxin] 500 mg PO Q8H PRN 07/29/23 09/11/23 History Acetaminophen Tab [Tylenol] 650 mg PO Q4H PRN 09/11/23 09/11/23 History Amiodarone [Cordarone] 200 mg PO DAILY 09/11/23 09/11/23 History Cholecalciferol [Vitamin D3 (125 125 mcg PO DAILY 09/11/23 09/11/23 History Mcg = 5000 Iu)] Lactulose [Cephulac] 10 gm PO BID 09/11/23 09/11/23 History Potassium Chloride ER [K-Dur 10] 10 meq PO DAILY 09/11/23 09/11/23 History oxyCODONE-APAP 5-325MG [Percocet 1 tab PO TID 09/11/23 09/11/23 History 5-325 mg] Allergies Allergy/AdvReac Type Severity Reaction Status Date / Time No Known Allergies Allergy Verified 09/11/23 17:06 Physical Exam Vitals: Vital Signs Temp Pulse Resp BP BP Pulse Ox 09/13/23 08:00 98.1 F 94 16 85/55 97 09/13/23 06:49 93/57 09/13/23 05:15 85/47 09/13/23 04:50 79/41 05/04/24 04:40 82/42 09/13/23 03:45 88/49 09/13/23 03:10 86 16 82/43 97 09/13/23 01:19 95/60 09/13/23 00:52 92/53 09/13/23 00:15 89/50 09/13/23 00:00 89 16 84/46 78/40 96 09/12/23 20:30 98.1 F 92 18 109/58 95 09/12/23 16:00 95 88/50 95 09/12/23 14:00 93 16 09/12/23 12:00 93 92/57 95 Intake and Output 09/12/23 09/13/23 09/13/23 22:59 06:59 14:59 Intake Total 118 480 Output Total 850 Balance 118 -850 480 Intake: Oral 118 480 Output: Urine 850 Other: Voiding Method External Catheter External Catheter External Catheter GENERAL DESCRIPTION: Middle-aged female lying in bed, no distress. No tachypnea or accessory muscle of respiration use. HEENT: Shows Pallor , no scleral icterus. Oral mucous membrane is dry. No pharyngeal erythema or thrush NECK: Trachea central, no thyromegaly. LUNGS: Unlabored breathing. Decreased breath sound the base HEART: S1, S2, regular rate and rhythm. No loud murmur ABDOMEN: Soft, no tenderness , EXTREMITIES: No edema of feet. SKIN: No rash, no masses palpable. NEUROLOGICAL: The patient is awake, alert, oriented x3, mood and affect normal. Results CBC & Chem 7: 09/25/23 02:38 09/24/23 11:02 Labs: Abnormal Lab Results - Last 24 Hours (Table) 09/13/23 09/13/23 Range/Units 07:31 07:31 WBC 2.6 L (3.8-10.6) k/uL RBC 2.68 L (3.80-5.40) m/uL Hgb 8.5 L (11.4-16.0) gm/dL Hct 27.2 L (34.0-46.0) % MCV 101.4 H D (80.0-100.0) fL RDW 19.5 H (11.5-15.5) % Lymphocytes # 0.4 L (1.0-4.8) k/uL Sodium 130 L (137-145) mmol/L Carbon Dioxide 16 L (22-30) mmol/L Creatinine 0.43 L (0.52-1.04) mg/dL Calcium 7.6 L (8.4-10.2) mg/dL Magnesium 1.4 L (1.6-2.3) mg/dL Assessment and Plan (1) Abdominal pain Status: Acute Priority: High Code(s): R10.9 - UNSPECIFIED ABDOMINAL PAIN SNOMED Code(s): 12590144 (2) Bicytopenia Status: Acute Priority: Medium Code(s): D75.89 - OTHER SPECIFIED DISEASES OF BLOOD AND BLOOD-FORMING ORGANS SNOMED Code(s): 30856859 Plan: 1patient presented to hospital with abnormal electrolytes did have some nausea vomiting and abdominal pain CT abdominal pelvis has been suggestive of ileus patient did have leukopenia but no significant fever, dealing mostly with the ileus questionably mechanical keeping in mind significant leukopenia and low- grade fever we will need to cover for enteric gram-negative both aerobes and anaerobes 2-patient to continue Rocephin and Flagyl along with bowel rest We will follow on clinical condition and cultures to further adjust medication if needed Thank you for this consultation we will follow the patient along with you Dictation was produced using [employer] dictation software. please excuse any grammatical, word or spelling errors. Time with Patient: Greater than 30
[2023-09-14 07:36] LABS: Anisocytosis Slight; HCT 27.6 % (34.0-46.0); HGB 8.4 gm/dL (11.4-16.0); Hypochromasia Moderate; MCH 30.4 pg (25.0-35.0); MCHC 30.6 g/dL (31.0-37.0); MCV 99.4 fL (80.0-100.0); Macrocytosis Moderate; Mean Platelet Volume 7.7; Platelet Count 278 k/uL (150-450); Poikilocytosis Slight; RBC 2.78 m/uL (3.80-5.40); RDW 19.4 % (11.5-15.5); WBC 4.1 k/uL (3.8-10.6)
[2023-09-14 07:52] LABS: African American GFR (CKD) >90 (>60 ml/min/1.73 sqM); Anion Gap 6 mmol/L; Blood Urea Nitrogen 4 mg/dL (7-17); Calcium 7.8 mg/dL (8.4-10.2); Carbon Dioxide 20 mmol/L (22-30); Chloride 103 mmol/L (98-107); Glucose 89 mg/dL (74-99); Magnesium 1.4 mg/dL (1.6-2.3); Non-African American GFR(CKD) >90 (>60 ml/min/1.73 sqM); Potassium 3.7 mmol/L (3.5-5.1); Sodium 129 mmol/L (137-145)
[2023-09-14] MEDS: MAGNESIUM SULFATE-D5W PMX 1 GM in DEXTROSE/WATER 1 100ML.BAG IVPB SCH (09:24)
--- NOTE | 2023-09-14 11:41 | CT ---
EXAMINATION TYPE: CT lumbar spine wo con DATE OF EXAM: 09/14/2023 11:21 AM COMPARISON: None HISTORY: Back pain Automated exposure control for dose reduction was used. Unenhanced CT of the lumbar spine was performed. Bone and soft tissue window settings are submitted as well as coronal and sagittal reconstructions. Findings: There is a lytic/destructive process of the inferior endplate of L2 and of the superior endplate and the left pedicle of L3 with a mild to moderate compression fracture of L3, likely pathologic. The remaining lumbar vertebral segments are normal in height and alignment. There is no significant d isc space narrowing or degenerative disc disease. There are no large disc herniations Secondary to circumferential disc bulge and thickening of ligamentum flavum, there is a mild to moder ate spinal stenosis at the L3-4 level. IMPRESSION: 1. Lytic lesions of L2 and L3 with a mild to moderate compression fracture of the superior endplate o f L3, likely pathologic. The findings suggest the presence of metastatic disease. MRI of lumbar spin e with contrast to be useful for further evaluation. 2. Mild to moderate spinal stenosis at the L3-4 level.
--- NOTE | 2023-09-14 12:45 | P.PN ---
Subjective Progress Note Date: 09/14/23 * 63 years old female with past medical history of multiple medical problems as below including history of bipolar and schizophrenia, history of pulmonary embolism on Eliquis, patient was recently in the hospitalized in this facility about once days for acute Neutropenic sepsis,she was discharged to [facility] also she has been treated for bowel obstruction and she has been followed by surgery team with Dr. Maynard at that time. * Patient states that she has history of chronic back pain and difficulty wa lking for the last 2 months also, she states it is in the lumbar 3 and lumbar 4 spine vertebrae * Patient was sent from [facility] because of abnormal labs and low potassium and sodium, patient states that they checked it routinely. * Patient is hemodynamically stable and afebrile * Labs showed low sodium 128 low potassium 2.8 and low magnesium 1.1 * She has chronic leukopenia and currently 3.7, chronic anemia currently 8.5 at baseline * LFTs unremarkable * EKG shows sinus rhythm at [address]-T changes * 09/13/23: Patient seen and evaluated, patient seen by general surgery noted to have significant electrolyte abnormality corrected continue fluid resuscitation, continue supportive care advance diet as tolerated.. CT abdomen pelvis reviewed concern for enteritis. Patient states she does have history of multiple myeloma and was followed up with oncology outpatient continue to have bicytopenia * 09/14/23: Patient seen and evaluated bedside, diet has been advanced. Workup reviewed including CBC showed WBC 4.1 hemoglobin 8.4 platelet count of 278, serum chemistry sodium 129 BUN 4 creatinine 0.48 magnesium of 1.4 replaced, CT lumbar spine reviewed does have compression fracture pathological lesions which will need to be evaluated. Patient complains of constipation with no bowel movement in 3 days, 1 dose of MiraLAX ordered PHYSICAL EXAMINATION: GENERAL: The patient is alert and oriented x3, not in any acute distress. Well developed, well nourished. HEENT: Pupils are round and equally reacting to light. EOMI. Normocephalic, atraumatic. No pharyngeal erythema. No thyromegaly. CARDIOVASCULAR: S1 and S2 present. No murmurs, rubs, or gallops. PULMONARY: Chest is clear to auscultation, no wheezing or crackles. ABDOMEN: Soft, nontender, nondistended, normoactive bowel sounds. No palpable organomegaly. MUSCULOSKELETAL: No joint swelling or deformity. EXTREMITIES: No cyanosis, clubbing, or pedal edema. NEUROLOGICAL: Gross neurological examination did not reveal any focal deficits. Assessment and plan * Acute gastroenteritis * Shock secondary to hypovolemia * Lytic lesions lumbar spine with pathological fracture, L3-L4 spinal stenosis * History of neutropenic colitis, sigmoid colitis and pancytopenia * History of chronic systolic heart failure ejection fraction of 40 to 45% * Chronic fibrillation on anticoagulation * History of pulmonary embolism on anticoagulation * Chronic back pain * In regards to gastroenteritis continue patient on IV antibiotic receiving Rocephin and Flagyl day 3 , infectious disease consulted, stool C. difficile ordered stool was partly formed, stool cultures requested, patient now complaining of constipation given 1 dose of MiraLAX * Atrial fibrillation continue patient on amiodarone, continue Eliquis, continue fluid resuscitation * In regards to low back pain CT reviewed, orthospine consulted * Regards to hypertension follow-up lactate levels within normal limits, continue fluid resuscitation * In regards to history of heart failure continue to monitor intake and output c ontinue fluid resuscitation * Regards to chronic back pain will get imaging of spine CT lumbar spine ordered * In regards to pulmonary embolism continue patient on anticoagulation on Eliquis * Status full code Objective - Vital Signs Vital signs: Vital Signs Temp 97.9 F 09/14/23 08:00 Pulse 95 09/14/23 08:00 Resp 18 09/14/23 08:00 BP 103/59 09/14/23 08:00 Pulse Ox 97 09/14/23 08:00 FiO2 Intake & Output 09/13/23 09/14/23 09/14/23 18:59 06:59 18:59 Intake Total 1404 240 Output Total 1150 1200 Balance 254 -1200 240 Weight 57.606 kg Intake: Oral 1404 240 Output: Urine 1150 1200 Other: Voiding Method External Catheter External Catheter External Catheter - Labs CBC & Chem 7: 09/14/23 06:53 09/14/23 06:53 Labs: Abnormal Lab Results - Last 24 Hours (Table) 09/13/23 09/14/23 09/14/23 Range/Units 07:31 06:53 06:53 RBC 2.78 L (3.80-5.40) m/uL Hgb 8.4 L (11.4-16.0) gm/dL Hct 27.6 L (34.0-46.0) % MCHC 30.6 L (31.0-37.0) g/dL RDW 19.4 H (11.5-15.5) % Sodium 129 L (137-145) mmol/L Carbon Dioxide 20 L (22-30) mmol/L BUN 4 L (7-17) mg/dL Creatinine 0.48 L (0.52-1.04) mg/dL Calcium 7.8 L (8.4-10.2) mg/dL Magnesium 1.4 L (1.6-2.3) mg/dL Procalcitonin 0.21 H (0.02-0.09) ng/mL
[2023-09-14] MEDS: polyethylene glycoL 3350 17 GM POWD.PACK PO STA (12:56)
--- NOTE | 2023-09-14 13:21 | P.CONS ---
History of Present Illness - Reason for Consult Consult date: 09/14/23 Pt known to you, follow up Requesting physician: Kitty Blanco - Chief Complaint Dizziness and hypotension - History of Present Illness Ms. Sanchez very pleasant 63-year-old female with a history of multiple comorbidities including recently found PE in 05/2023 on anticoagulation, as well as recent admission 07/2023 for abdominal pain and colitis, transferred to [facility]. She was evaluated by her team at that time for pancytopenia. Workup at that time revealed IgA kappa monoclonal protein. She was not stable enough to have a bone marrow biopsy done here however she did have a bone marrow biopsy done at [facility] which revealed 50-60% plasma cells with normal cytogenetics. She did follow-up with Dr. Vieira on 08/29/2023 however was very uncomfortable and upset with her recent illness and treatment was not discussed yet. Further evaluation for staging was requested and a 2-week follow-up was recommended. She comes back now with dizziness and hypotension. She recently underwent bowel prep for colonoscopy however colonoscopy was canceled and postponed due to poor prep. She began having some increased dizziness and low blood pressure which prompted her ER visit. In the ER she was found to be hypokalemic with a potassium of 2.7. Also low magnesium at 1.41.5. Creatinine was normal. She does have bicytopenia with a WBC of 3.7 and hemoglobin of 8, repeat CBC with improved WBC to 4.1 today and a hemoglobin of 8.4. Platelets have been normal. She did undergo CT of the abdomen pelvis which revealed small bowel dilation concerning for ileus and possible gastroenteritis. We were consulted as pt known to Dr. Zoë Peace. She is having nausea and back pain. She says her back pain is immobilizing and she is having difficulty walking. She did undergo a CT of the L-spine earlier today, awaiting results. Pain does not seem to be well-controlled and was worsening since her last visit in our office. She has been very frustrated as she feels like she does not know what her diagnosis is and this is not being addressed. She feels like she is going to over the next few days while laying in bed and not being able to do anything. Very tearful. Also with constipation that seems to be uncontrolled. Hem/Onc history: Mrs. Sanchez is a 63-year-old female who has been seen in the past by Dr. Zoë Peace. PMH significant for depression currently on Depakote along with small bowel resection in 2011 due to bowel incarceration from hernia who was referred to Hematology for evaluation of macrocytic anemia back in Mar 2023. Progressive macrocytic anemia with hemoglobin ranging from 9-10 MCV ranging from 103-108 noted to have started in about 2020. She had been diagnosed with a B12 deficiency in the past, was not on any active treatment for the same. Work up was neg, flow cytometry was neg. [place] that macrocytosis was 2/2 depakote given the timing of development of macrocytosis and depakote initiation. She has received several PRBC transfusions when she was admitted late last year for GI bleed. She has had endoscopy, no pathology, followed by GI for adenomas. She did have rt inguinal LN excision 03/28/23, neg for malignancy. She has a recent diagnosis of pulmonary embolism in May 2023, no provoking factor, on blood thinners. We are consulted for pancytopenia. Admitted in 07/2023 for altered mental status and acute kidney injury. She was in the ICU for hypotension and multiorgan failure. Transferred eventually to [facility] for management of colitis. Last seen by Dr. Peace on 08/29/23: She has had progressive macrocytic anemia over the past 2 years, with hemoglobin downtrending to the 9-10 range from 14 in 2019. TSH/free T4 and folate recently measured in May and June were within normal limits. Initial workup noted vitamin B12 deficiency in the setting of having had GI bleed in the fall 2022. FISH and cytogenetics from the peripheral blood obtained in March 2023 were negative. There is no evidence of pernicious anemia at that time. She had progressive anemia was noted in May 2023 with normal vitamin B12 and iron studies and was subsequently lost to follow-up. She was admitted to [facility] on on 07/29/2023 with septic shock complicated by atrial fibrillation with RVR secondary to enterobacter cloacae bacteremia, which was subsequently complicated by large bowel obstruction at the sigmoid colon. Workup for pancytopenia and during that admission revealed IgA kappa monoclonal protein with M protein 2.78 g/dL with IgA 3289 and suppressed IgG and IgM concerning for multiple myeloma. She was not stable for bone marrow biopsy at that time given her progressive bowel obstruction and was transferred to [facility]. Clinical course there was complicated by acute hypoxic respiratory failure requiring intubation, but progressively improved with supportive measures. Bone marrow biopsy performed on 08/11/2023 at [facility] noted 50-60% plasma cells on flow cytometry with kappa restriction consistent with multiple myeloma. FISH and cytogenetics were normal. She was discharged on 08/25/2023 from [facility] and is currently in subacute rehab where she is not eating food except for clear liquids. She has IgA kappa multiple myeloma without any high risk features on FISH or cytogenetics. She has significant frustration regarding her clinical course, which is understandable. Throughout multiple points during our visit, I did attempt to discuss her diagnosis in detail along with management. I was interrupted multiple times saying "stop talking and do more action" to help with her abdominal pain. Clinically, she had hypotension during today's clinic visit with blood pressure 78/50 with heart rate of 101. During our visit, she developed chills. Given her recent clinical course, I did discuss my concern for potential infection and recommended evaluation in the ED in addition to her low back pain. She and her sister refused stating doctors are not doing anything for her. Her sister did inquire into potential staging her multiple myeloma. I discussed I did not have all the necessary information to make that determination, but would not change person. Given her anger and discomfort, we discussed that today would not be ideal time to discuss her multiple myeloma. Her low back pain could be in part from multiple myeloma. Prescription for tra madol 50 mg every 8 hours as needed was provided on today's visit. CMP, CBC, LDH, beta-2 microglobulin ordered on today's visit. She states she does have upcoming colonoscopy at [facility] next week. She was concerned with her ability to undergo this procedure if she is not being able to eat anything. I discussed that the physicians at [facility] have to make the determination about whether to proceed with colonoscopy or not. 2 week follow up planned. Past Medical History Past Medical History: Atrial Fibrillation, Blood Disorder, GERD/Reflux, Pulmonary Embolus (PE) Additional Past Medical History / Comment(s): Anemia, Recent back fx (August 2023), Intubated at [facility] (August 2023), Low BPs History of Any Multi-Drug Resistant Organisms: None Reported Past Surgical History: Appendectomy, Bowel Resection, Breast Surgery, Section, Cholecystectomy, Hernia Repair, Tubal Ligation Additional Past Surgical History / Comment(s): HERNIATED BOWEL REQUIRED BOWEL RESECTION., BREAST IMPLANTS, Pt. states "L breast imploded and the R implant needs to be removed." Past Anesthesia/Blood Transfusion Reactions: No Reported Reaction Additional Past Anesthesia/Blood Transfusion Reaction / Comm: HX OF BLOOD TRANSFUSION-NO REACTION Past Psychological History: Anxiety, Bipolar, Depression Additional Psychological History / Comment(s): manic episodes Smoking Status: Former smoker Past Alcohol Use History: None Reported Additional Past Alcohol Use History / Comment(s): . Past Drug Use History: None Reported - Past Family History Mother Family Medical History: No Reported History Father Additional Family Medical History / Comment(s): COMMITTED SUICIDE AT AGE 28 Medications and Allergies Home Medications Medication Instructions Recorded Confirmed Type ALPRAZolam [Xanax] 1 mg PO TID PRN 05/25/22 09/11/23 History OXcarbazepine [Trileptal] 300 mg PO Q8H 05/25/22 09/11/23 History Apixaban [Eliquis] 5 mg PO BID 03/08/23 09/11/23 History Cyanocobalamin (Vitamin B-12) 1,000 mcg PO DAILY 03/08/23 09/11/23 History [Vitamin B-12] Omeprazole 40 mg PO DAILY 03/08/23 09/11/23 History QUEtiapine [SEROquel] 1,200 mg PO HS 03/08/23 09/11/23 History methocarbamoL [Robaxin] 500 mg PO Q8H PRN 07/29/23 09/11/23 History Acetaminophen Tab [Tylenol] 650 mg PO Q4H PRN 09/11/23 09/11/23 History Amiodarone [Cordarone] 200 mg PO DAILY 09/11/23 09/11/23 History Cholecalciferol [Vitamin D3 (125 125 mcg PO DAILY 09/11/23 09/11/23 History Mcg = 5000 Iu)] Lactulose [Cephulac] 10 gm PO BID 09/11/23 09/11/23 History Potassium Chloride ER [K-Dur 10] 10 meq PO DAILY 09/11/23 09/11/23 History oxyCODONE-APAP 5-325MG [Percocet 1 tab PO TID 09/11/23 09/11/23 History 5-325 mg] Allergies Allergy/AdvReac Type Severity Reaction Status Date / Time No Known Allergies Allergy Verified 09/11/23 17:06 Physical Exam Vitals: Vital Signs Temp Pulse Resp BP Pulse Ox 09/14/23 08:00 97.9 F 95 18 103/59 97 09/14/23 04:00 97.5 F L 98 18 91/53 95 09/14/23 01:43 93 16 09/13/23 23:46 93 16 92/57 96 09/13/23 20:15 97.9 F 88 16 100/62 98 09/13/23 16:00 97.8 F 90 16 93/56 96 09/13/23 11:53 86 16 86/46 95 Intake and Output 09/13/23 09/14/23 09/14/23 22:59 06:59 14:59 Intake Total 924 240 Output Total 650 1200 Balance 274 -1200 240 Intake: Oral 924 240 Output: Urine 650 1200 Other: Voiding Method External Catheter External Catheter External Catheter Patient is in no acute distress. No respiratory distress. Heart rate is normal. Alert and oriented x 3. Very tearful about her current medical situation. Results CBC & Chem 7: 09/14/23 06:53 09/14/23 06:53 Labs: Abnormal Lab Results - Last 24 Hours (Table) 09/13/23 09/14/23 09/14/23 Range/Units 07:31 06:53 06:53 RBC 2.78 L (3.80-5.40) m/uL Hgb 8.4 L (11.4-16.0) gm/dL Hct 27.6 L (34.0-46.0) % MCHC 30.6 L (31.0-37.0) g/dL RDW 19.4 H (11.5-15.5) % Sodium 129 L (137-145) mmol/L Carbon Dioxide 20 L (22-30) mmol/L BUN 4 L (7-17) mg/dL Creatinine 0.48 L (0.52-1.04) mg/dL Calcium 7.8 L (8.4-10.2) mg/dL Magnesium 1.4 L (1.6-2.3) mg/dL Procalcitonin 0.21 H (0.02-0.09) ng/mL CT scan - abdomen: report reviewed CT scan - pelvis: report reviewed Assessment and Plan Assessment: 1. Newly found IgA kappa multiple myeloma, untreated 2. Bicytopenia with mild leukopenia and chronic anemia 3. Ileus and gastroenteritis 4. Chronic hyponatremia 5. Electrolyte derangement 6. Intractable pain due to malignancy 7. Anxiety due to health condition Plan: Ms. Sanchez is a very pleasant 63-year-old female with a history of multiple comorbidities who is here for dizziness and hypotension. Workup suggestive of ileus and gastroenteritis. Found to also have bicytopenia. WBC improving with stable hemoglobin. Has longstanding macrocytic anemia that is felt to be due to Depakote. More recently found to have worsening anemia, normocytic, work up with normal iron (anemia of chronic disease), B12 and folate, and IgA kappa multiple myeloma on bone marrow biopsy [facility] [place] during hospitalization for colitis, not yet started on treatment. -She has discussed recent diagnosis of MM -Significant back pain, suspect due to MM and bone lesions; CT spine done today -Treatment not yet discussed due to multiple ongoing issues -Currently being treated for infection -Currently pt without renal dysfunction or hypercalcemia however high concern of bone involvement due to severe and worsening back pain -Pt was very frustrated as she does not feel that we are discussing her diagnosis and prognosis as well as treatment with her. She thinks she is laying in bed and going to soon. I had a long discussion with pt about her condition, what MM is, and staging. I discussed that we are waiting on some blood work to stage her, however disucssed that staging of MM is different from solid tumors and guides the best regimen for first treatment and overall expected duration of treatment response. I discussed that this is a chronic disease nowadays with all the different great therapeutic options that are available. -As we are awaiting further information to determine her best initial treatment, she might benefit from pulsed Decadron once her infection is controlled to help control her myeloma temporarily until full treatment is initialized -She does seem to need better pain control as well as constipation control -Electrolyte replacement as per primary team -Monitor CBC, transfuse for hemoglobin less than 7 -Antibiotics as per primary team Discussed with pt and she is agreeable. All questions answered.
[2023-09-14] MEDS: MORPHINE SULFATE 4 MG/ML SYRINGE IVP PRN (14:22)
--- NOTE | 2023-09-14 17:46 | P.PN ---
Subjective Progress Note Date: 09/14/23 Principal diagnosis: Reason for follow-up is ileus possible abdominal sepsis Patient is a 63-year-old female with a past medical history significant for atrial fibrillation reflux pulmonary embolism presenting to the hospital for evaluation of low sodium and potassium, patient did have evidence of ileus low-grade fever prompting this infectious disease consultation On today's evaluation that is 09/14/2023,the patient remains to be afebrile, patient is on room air not requiring supplemental oxygen and denies any shortness of breath no chest pain or cough.Patient has been complaining of nausea and abdominal pain but no vomiting did not have any bowel movement or passing any gas. Patient white count improved to 4.1, creatinine 0.48 Objective - Vital Signs Vital signs: Vital Signs Temp 97.7 F 09/14/23 15:46 Pulse 87 09/14/23 15:46 Resp 16 09/14/23 15:46 BP 107/59 09/14/23 15:46 Pulse Ox 97 09/14/23 15:46 FiO2 Intake & Output 09/13/23 09/14/23 09/14/23 18:59 06:59 18:59 Intake Total 1404 480 Output Total 1150 1200 700 Balance 254 -1200 -220 Weight 57.606 kg Intake: Oral 1404 480 Output: Urine 1150 1200 700 Other: Voiding Method External Catheter External Catheter External Catheter - Exam GENERAL DESCRIPTION: Middle-aged female lying in bed in no distress RESPIRATORY SYSTEM: Unlabored breathing , decreased breath sounds at bases HEART: S1 S2 regular rate and rhythm , ABDOMEN: Soft mild tenderness EXTREMITIES: No edema feet - Labs CBC & Chem 7: 09/14/23 06:53 09/14/23 06:53 Labs: Abnormal Lab Results - Last 24 Hours (Table) 09/14/23 09/14/23 Range/Units 06:53 06:53 RBC 2.78 L (3.80-5.40) m/uL Hgb 8.4 L (11.4-16.0) gm/dL Hct 27.6 L (34.0-46.0) % MCHC 30.6 L (31.0-37.0) g/dL RDW 19.4 H (11.5-15.5) % Sodium 129 L (137-145) mmol/L Carbon Dioxide 20 L (22-30) mmol/L BUN 4 L (7-17) mg/dL Creatinine 0.48 L (0.52-1.04) mg/dL Calcium 7.8 L (8.4-10.2) mg/dL Magnesium 1.4 L (1.6-2.3) mg/dL Assessment and Plan (1) SIRS (systemic inflammatory response syndrome) Current Visit: Yes Status: Acute Code(s): R65.10 - SIRS OF NON-INFECTIOUS ORIGIN W/O ACUTE ORGAN DYSFUNCTION SNOMED Code(s): 164122760 (2) Leukopenia Current Visit: Yes Status: Acute Code(s): D72.819 - DECREASED WHITE BLOOD CELL COUNT, UNSPECIFIED SNOMED Code(s): 13046214 Plan: 1patient presented to hospital with abnormal electrolytes did have some nausea vomiting and abdominal pain CT abdominal pelvis has been suggestive of ileus patient did have leukopenia and a low-grade fever, dealing mostly with the ileus questionably mechanical keeping in mind significant leukopenia and low-grade fever we will need to cover for enteric gram-negative both aerobes and anaerobes 2-patient to continue Rocephin and Flagyl along with bowel rest and monitor clinical course closely Dictation was produced using [employer]uri dictation software. please excuse any grammatical, word or spelling errors. Time with Patient: Less than 30
--- NOTE | 2023-09-14 18:45 | P.PN ---
Subjective Progress Note Date: 09/14/23 Patient seen and evaluated. At the time of my assessment, patient had bilious emesis. She had prior CT scan studies performed earlier. She reports no passage of flatus. Abdomen: No diffuse peritonitis. Mildly distended. Studies: CT of the abdomen pelvis independently reviewed demonstrate moderate di lation of the stomach small bowel including the colon. No definitive transition point identified. This is my independent interpretation. Questionable findings of ileus versus gastroenteritis. Assessment: 1. Clinical bowel obstruction Plan: 1. Placement of nasogastric tube 2. N.p.o. except ice chips 3. May need small bowel follow-through with Gastrografin to identify transition point 4. Possible surgical invention pending clinical course Objective - Vital Signs Vital signs: Vital Signs Temp 97.7 F 09/14/23 15:46 Pulse 87 09/14/23 15:46 Resp 16 09/14/23 15:46 BP 107/59 09/14/23 15:46 Pulse Ox 97 09/14/23 15:46 FiO2 Intake & Output 09/13/23 09/14/23 09/14/23 18:59 06:59 18:59 Intake Total 1404 480 Output Total 1150 1200 700 Balance 254 -1200 -220 Weight 57.606 kg Intake: Oral 1404 480 Output: Urine 1150 1200 700 Other: Voiding Method External Catheter External Catheter External Catheter - Labs CBC & Chem 7: 09/14/23 06:53 09/14/23 06:53 Labs: Abnormal Lab Results - Last 24 Hours (Table) 09/14/23 09/14/23 Range/Units 06:53 06:53 RBC 2.78 L (3.80-5.40) m/uL Hgb 8.4 L (11.4-16.0) gm/dL Hct 27.6 L (34.0-46.0) % MCHC 30.6 L (31.0-37.0) g/dL RDW 19.4 H (11.5-15.5) % Sodium 129 L (137-145) mmol/L Carbon Dioxide 20 L (22-30) mmol/L BUN 4 L (7-17) mg/dL Creatinine 0.48 L (0.52-1.04) mg/dL Calcium 7.8 L (8.4-10.2) mg/dL Magnesium 1.4 L (1.6-2.3) mg/dL
--- NOTE | 2023-09-14 22:12 | XR ---
EXAM: XR Chest, 1 View CLINICAL HISTORY: ITS.REASON XR Reason: confirm NG placement TECHNIQUE: Frontal view of the chest. COMPARISON: No relevant prior studies available. FINDINGS: Lungs: Unremarkable. No consolidation. Pleural space: Trace bilateral pleural effusions. No pneumothorax. Heart: Unremarkable. No cardiomegaly. Mediastinum: Unremarkable. Normal mediastinal contour. Bones/joints: Unremarkable. No acute fracture. Soft tissues: Calcified RIGHT breast implant. Tubes, lines and devices: Feeding tube terminates in the stomach. IMPRESSION: Feeding tube terminates in the stomach.
[2023-09-14] MEDS: ALPRAZolam 0.5 MG TAB PO PRN (22:13)
--- NOTE | 2023-09-15 08:55 | P.CNOR ---
History of Present Illness - [facility] Consult date: 09/15/23 Requesting physician: Rudolph Rivera Consult reason: low back pain, other (L2 and L3 lytic lesions) History of present illness: Patient is a pleasant 63-year-old female who is seen and examined at bedside for further evaluation of her lumbar spine. Lumbar CT imaging was taken yesterday which showed evidence of lytic lesions at L2 and L3 with moderate compression fracture in the superior endplate, likely pathologic. We were consulted for further evaluation in this regard. Patient states her back pain is new for her and has been ongoing since July 2023 without injury. She states her overall health has significantly declined since July 2023. She is known to have multi ple myeloma and has followed with oncology in the outpatient setting. She states this is a new diagnosis for her. She states she has not had staging for her multiple myeloma. She denies any difficulty with her lower extremities. She denies any lower extremity weakness or radiculopathy bilaterally. She does have difficulty with sitting upright and sitting with her legs hanging on the side of the bed as it further exacerbates her low back pain. She states her pain is most significant at her lumbosacral junction radiating across her back towards her hips bilaterally but not down the legs. She does not have any specific increased pain with coughing or sneezing. Patient continues have significant abdominal pain. She has been seen by Dr. Maynard. She is being evaluated for ileus versus small bowel obstruction. She has an NG tube intact. She is currently NPO. She has a significant history which includes admission to [facility] on on 07/29/2023 with septic shock complicated by atrial fibrillation with RVR secondary to enterobacter cloacae bacteremia, which was subsequently complicated by large bowel obstruction at the sigmoid colon. Workup for pancytopenia and during that admission revealed IgA kappa monoclonal protein with M protein 2.78 g/dL with IgA 3289 and suppressed IgG and IgM concerning for multiple myeloma. She was not stable for bone marrow biopsy at that time given her progressive bowel obstruction and was transferred to [facility]. Clinical course there was complicated by acute hypoxic respiratory failure requiring intubation, but progressively improved with supportive measures. Bone marrow biopsy performed on 08/11/2023 at [facility] noted 50-60% plasma cells on flow cytometry with kappa restriction consistent with multiple myeloma. During her admission currently she is being seen by multiple medical providers including hematology/oncology, medicine, general surgery, and infectious disease. Patient does have multiple medical diagnoses including chronic atrial fibrillation on anticoagulation, history of pulmonary embolism on anticoagulation, history of neutropenic colitis, sigmoid colitis, pancytopenia, and history of heart failure. Past Medical History Past Medical History: Atrial Fibrillation, Blood Disorder, GERD/Reflux, Pulmonary Embolus (PE) Additional Past Medical History / Comment(s): Anemia, Recent back fx (August 2023), Intubated at [facility] (August 2023), Low BPs History of Any Multi-Drug Resistant Organisms: None Reported Past Surgical History: Appendectomy, Bowel Resection, Breast Surgery, Section, Cholecystectomy, Hernia Repair, Tubal Ligation Additional Past Surgical History / Comment(s): HERNIATED BOWEL REQUIRED BOWEL RESECTION., BREAST IMPLANTS, Pt. states "L breast imploded and the R implant needs to be removed." Past Anesthesia/Blood Transfusion Reactions: No Reported Reaction Additional Past Anesthesia/Blood Transfusion Reaction / Comm: HX OF BLOOD TRANSFUSION-NO REACTION Past Psychological History: Anxiety, Bipolar, Depression Additional Psychological History / Comment(s): manic episodes Smoking Status: Former smoker Past Alcohol Use History: None Reported Additional Past Alcohol Use History / Comment(s): . Past Drug Use History: None Reported - Past Family History Mother Family Medical History: No Reported History Father Additional Family Medical History / Comment(s): COMMITTED SUICIDE AT AGE 28 Medications and Allergies Home Medications Medication Instructions Recorded Confirmed Type ALPRAZolam [Xanax] 1 mg PO TID PRN 05/25/22 09/11/23 History OXcarbazepine [Trileptal] 300 mg PO Q8H 05/25/22 09/11/23 History Apixaban [Eliquis] 5 mg PO BID 03/08/23 09/11/23 History Cyanocobalamin (Vitamin B-12) 1,000 mcg PO DAILY 03/08/23 09/11/23 History [Vitamin B-12] Omeprazole 40 mg PO DAILY 03/08/23 09/11/23 History QUEtiapine [SEROquel] 1,200 mg PO HS 03/08/23 09/11/23 History methocarbamoL [Robaxin] 500 mg PO Q8H PRN 07/29/23 09/11/23 History Acetaminophen Tab [Tylenol] 650 mg PO Q4H PRN 09/11/23 09/11/23 History Amiodarone [Cordarone] 200 mg PO DAILY 09/11/23 09/11/23 History Cholecalciferol [Vitamin D3 (125 125 mcg PO DAILY 09/11/23 09/11/23 History Mcg = 5000 Iu)] Lactulose [Cephulac] 10 gm PO BID 09/11/23 09/11/23 History Potassium Chloride ER [K-Dur 10] 10 meq PO DAILY 09/11/23 09/11/23 History oxyCODONE-APAP 5-325MG [Percocet 1 tab PO TID 09/11/23 09/11/23 History 5-325 mg] Allergies Allergy/AdvReac Type Severity Reaction Status Date / Time No Known Allergies Allergy Verified 09/11/23 17:06 Physical Examination Physical exam: Patient is awake, alert, and oriented 3 Vital signs stable Good chest excursion with deep inspiration and expiration Abdomen is distended; NG tube in place Examination of lumbar spine reveals skin is intact with no abrasions, lacerations, or bruises; no erythema, purulence or signs of infection No significant pain with palpation over the lumbar spine Dorsiflexion, plantarflexion, and extensor hallucis longus positive sustained bilaterally Lower extremity strength 5/5 bilaterally Is able to perform good independent range of motion of her bilateral lower extremities No lower extremity hyperreflexia bilaterally Straight leg test negative bilateral lower extremities No signs or symptoms of DVT; no calf pain No pain with internal and external rotation of the hips bilaterally Neurovascularly intact Results Pertinent studies: CT of the lumbar spine taken on 09/14/2023: L2 and L3 lytic lesions with mild to moderate compression fracture of the superior endplate of L3, likely pathologic; findings suggest metastatic disease; L3-4 mild to moderate spinal canal stenosis - Labs Labs: H & H 09/11/23 09/13/23 09/14/23 Range/Units 17:02 07:31 06:53 Hgb 8.5 L 8.5 L 8.4 L (11.4-16.0) gm/dL Hct 26.2 L 27.2 L 27.6 L (34.0-46.0) % Result Diagrams: 09/14/23 06:53 09/14/23 06:53 Assessment and Plan Assessment: Assessment: L2 and L3 lytic lesions L3 superior endplate compression fracture deformity Likely metastatic disease L3-4 mild to moderate spinal canal stenosis Low back pain Multi myeloma Abdominal pain Small bowel obstruction versus ileus, currently NG tube in place History of neutropenic colitis, sigmoid colitis, pancytopenia History of chronic systolic heart failure Chronic atrial fibrillation on anticoagulation History of pulmonary embolism on anticoagulation (1) Lytic bone lesions on xray Current Visit: Yes Status: Acute Code(s): M89.9 - DISORDER OF BONE, UNSPECIFIED SNOMED Code(s): 655494381 (2) Lumbar pain Current Visit: Yes Status: Acute Code(s): M54.50 - LOW BACK PAIN, UNSPECIFIED SNOMED Code(s): 221639197 (3) Lumbar spinal stenosis Current Visit: Yes Status: Acute Code(s): M48.061 - SPINAL STENOSIS, LUMBAR REGION WITHOUT NEUROGENIC RADHA SNOMED Code(s): 43866706 (4) Multiple myeloma Current Visit: Yes Status: Acute Code(s): C90.00 - MULTIPLE MYELOMA NOT HAVING ACHIEVED REMISSION SNOMED Code(s): 020111610 (5) Abdominal pain Current Visit: Yes Status: Acute Code(s): R10.9 - UNSPECIFIED ABDOMINAL PAIN SNOMED Code(s): 00977848 (6) Heart failure Current Visit: Yes Status: Acute Code(s): I50.9 - HEART FAILURE, UNSPECIFIED SNOMED Code(s): 91421980 (7) Atrial fibrillation Current Visit: Yes Status: Acute Code(s): I48.91 - UNSPECIFIED ATRIAL FIBRILLATION SNOMED Code(s): 29496027 (8) Current use of termite control servicer anticoagulation Current Visit: Yes Status: Acute Code(s): Z79.01 - SENIOR CARE (CURRENT) USE OF ANTICOAGULANTS SNOMED Code(s): 151024915 (9) History of pulmonary embolism Current Visit: Yes Status: Acute Code(s): Z86.711 - PERSONAL HISTORY OF PULMONARY EMBOLISM SNOMED Code(s): 912020390 (10) History of colitis Current Visit: Yes Status: Acute Code(s): Z87.19 - PERSONAL HISTORY OF OTHER DISEASES OF THE DIGESTIVE SYSTEM SNOMED Code(s): 030883382 (11) Pancytopenia Current Visit: No Status: Acute Priority: High Code(s): D61.818 - OTHER PANCYTOPENIA SNOMED Code(s): 410216508 Plan: Plan: 1. Patient has been experiencing lumbosacral pain since July 2023 without injury. She is also having significant difficulty with her abdomen. Lumbar CT imaging was taken yesterday which showed evidence of lytic lesions at L2 and L3 with moderate compression fracture in the superior endplate, likely pathologic. We were consulted for further evaluation in this regard. Patient states her back pain is new for her and has been ongoing since July 2023 without injury. She states her overall health has significantly declined since July 2023. She is known to have multiple myeloma and has followed with oncology in the outpatient setting. She states this is a new diagnosis for her. She states she has not had staging for her multiple myeloma. Not experiencing any lower extremity weakness or radiculopathy bilaterally. Given her significant findings on CT imaging, we will currently plan to obtain MRI imaging of the lumbar spine for further evaluation. Will plan to follow-up after completion of the MRI and reviewing of this imaging to discuss a plan of care proceeding forward. 2. Patient will continue be seen examined by her multiple medical providers for her multiple other medical diagnoses. Time with Patient: Greater than 30 (Including obtaining history, physical examination, reviewing of imaging, and dictation.)
[2023-09-15 10:10] LABS: Anisocytosis Slight; HCT 26.6 % (34.0-46.0); HGB 8.1 gm/dL (11.4-16.0); Hypochromasia Moderate; MCH 30.5 pg (25.0-35.0); MCHC 30.5 g/dL (31.0-37.0); Macrocytosis Moderate; Mean Platelet Volume 7.6; Platelet Count 283 k/uL (150-450); Poikilocytosis Slight; RBC 2.66 m/uL (3.80-5.40); RDW 19.6 % (11.5-15.5); WBC 3.5 k/uL (3.8-10.6)
[2023-09-15 10:46] LABS: African American GFR (CKD) >90 (>60 ml/min/1.73 sqM); Anion Gap 7 mmol/L; Blood Urea Nitrogen 3 mg/dL (7-17); Calcium 7.6 mg/dL (8.4-10.2); Carbon Dioxide 17 mmol/L (22-30); Chloride 106 mmol/L (98-107); Glucose 88 mg/dL (74-99); Magnesium 1.4 mg/dL (1.6-2.3); Non-African American GFR(CKD) >90 (>60 ml/min/1.73 sqM); Potassium 3.6 mmol/L (3.5-5.1); Sodium 130 mmol/L (137-145)
[2023-09-15 11:59] LABS: INR 1.1 (<1.2); Partial Thromboplastin Time 29.8 sec (22.0-30.0); Prothrombin Time 12.1 sec (10.0-12.5)
[2023-09-15] MEDS: MAGNESIUM SULFATE-D5W PMX 1 GM in DEXTROSE/WATER 1 100ML.BAG IVPB SCH (12:29)
[2023-09-15] MEDS: SCOPOLAMINE 1 MG/72 HR PATCH TRANSDERM SCH (12:29)
--- NOTE | 2023-09-15 13:13 | P.PN ---
Subjective Progress Note Date: 09/15/23 * 63 years old female with past medical history of multiple medical problems as below including history of bipolar and schizophrenia, history of pulmonary embolism on Eliquis, patient was recently in the hospitalized in this facility about once days for acute Neutropenic sepsis,she was discharged to [facility] also she has been treated for bowel obstruction and she has been followed by surgery team with Dr. Maynard at that time. * Patient states that she has history of chronic back pain and difficulty wa lking for the last 2 months also, she states it is in the lumbar 3 and lumbar 4 spine vertebrae * Patient was sent from [facility] because of abnormal labs and low potassium and sodium, patient states that they checked it routinely. * Patient is hemodynamically stable and afebrile * Labs showed low sodium 128 low potassium 2.8 and low magnesium 1.1 * She has chronic leukopenia and currently 3.7, chronic anemia currently 8.5 at baseline * LFTs unremarkable * EKG shows sinus rhythm at [address]-T changes * 09/13/23: Patient seen and evaluated, patient seen by general surgery noted to have significant electrolyte abnormality corrected continue fluid resuscitation, continue supportive care advance diet as tolerated.. CT abdomen pelvis reviewed concern for enteritis. Patient states she does have history of multiple myeloma and was followed up with oncology outpatient continue to have bicytopenia * 09/14/23: Patient seen and evaluated bedside, diet has been advanced. Workup reviewed including CBC showed WBC 4.1 hemoglobin 8.4 platelet count of 278, serum chemistry sodium 129 BUN 4 creatinine 0.48 magnesium of 1.4 replaced, CT lumbar spine reviewed does have compression fracture pathological lesions which will need to be evaluated. Patient complains of constipation with no bowel movement in 3 days, 1 dose of MiraLAX ordered * 09/15/23: Patient seen and evaluated bedside, patient electrolyte panel reviewed magnesium replaced, appreciate input from orthospine, nasogastric tube remains in place PHYSICAL EXAMINATION: GENERAL: The patient is alert and oriented x3, ill appearance, NG tube in place HEENT: Pupils are round and equally reacting to light. EOMI. Normocephalic, atraumatic. CARDIOVASCULAR: S1 and S2 present. No murmurs, rubs, or gallops. PULMONARY: Chest is clear to auscultation, no wheezing or crackles. ABDOMEN: Soft, nontender, nondistended, normoactive bowel sounds. No palpable organomegaly. MUSCULOSKELETAL: No joint swelling or deformity. EXTREMITIES: No cyanosis, clubbing, or pedal edema. NEUROLOGICAL: Gross neurological examination did not reveal any focal deficits. Assessment and plan * Acute gastroenteritis * Shock secondary to hypovolemia * Bowel obstruction * Lytic lesions lumbar spine with pathological fracture, L3-L4 spinal stenosis * History of neutropenic colitis, sigmoid colitis and pancytopenia * History of chronic systolic heart failure ejection fraction of 40 to 45% * Chronic fibrillation on anticoagulation * History of pulmonary embolism on anticoagulation * Chronic back pain * In regards to gastroenteritis continue patient on IV antibiotic receiving Rocephin and Flagyl day 4 , infectious disease consulted, * In regards to bowel obstruction, s/p NG tube placement, surgery team following serial abdominal exams patient yoni n.p.o. * Atrial fibrillation continue patient on amiodarone, Eliquis discontinued, started on IV heparin dose * In regards to low back pain CT reviewed, orthospine consulted, MRI spine ordered * Regards to hypertension follow-up lactate levels within normal limits, continue fluid resuscitation * In regards to history of heart failure continue to monitor intake and output continue fluid resuscitation * Regards to chronic back pain will get imaging of spine CT lumbar spine does show lytic lesions of lumbar spine, MRI lumbar spine ordered * In regards to pulmonary embolism, Eliquis discontinued patient started on heparin * Status full code Objective - Vital Signs Vital signs: Vital Signs Temp 98.2 F 09/14/23 20:15 Pulse 93 09/15/23 04:40 Resp 18 09/15/23 04:40 BP 97/64 09/15/23 04:40 Pulse Ox 95 09/15/23 04:40 FiO2 Intake & Output 09/14/23 09/15/23 09/15/23 18:59 06:59 18:59 Intake Total 480 Output Total 700 650 Balance -220 -650 Intake: Oral 480 Output: Urine 700 650 Other: Voiding Method External Catheter Diaper # Voids 1 - Labs CBC & Chem 7: 09/15/23 09:38 09/15/23 09:38
--- NOTE | 2023-09-15 15:21 | P.PN ---
Subjective Progress Note Date: 09/15/23 Patient reporting persisting abdominal and lower back pain. Reports pain medications are helping control pain. Patient had multiple episodes of nausea vomiting yesterday and NG tube has been placed with concerns for small bowel obstruction. Small bowel through ordered. CT lumbar spine also showing L3 pathological fracture. Dose of zometa ordered. Orthopedics has been consulted and have ordered MRI lumbar spine. Objective - Vital Signs Vital signs: Vital Signs Temp 98.4 F 09/15/23 08:00 Pulse 95 09/15/23 08:00 Resp 18 09/15/23 08:00 BP 102/54 09/15/23 08:00 Pulse Ox 99 09/15/23 08:00 FiO2 Intake & Output 09/14/23 09/15/23 09/15/23 18:59 06:59 18:59 Intake Total 480 Output Total 700 650 Balance -220 -650 Intake: Oral 480 Output: Urine 700 650 Other: Voiding Method External Catheter Diaper Diaper # Voids 1 1 - Constitutional General appearance: Present: average body habitus, no acute distress - EENT Eyes: Present: anicteric sclerae, EOMI ENT: Present: hearing grossly normal - Respiratory Details: breathing is even and unlabored - Cardiovascular Details: skin warm and dry - Integumentary Integumentary: Absent: cyanotic - Musculoskeletal Musculoskeletal: Present: generalized weakness - Psychiatric Psychiatric: Present: A&O x's 3 - Labs CBC & Chem 7: 09/15/23 09:38 09/15/23 09:38 Labs: Abnormal Lab Results - Last 24 Hours (Table) 09/15/23 09/15/23 Range/Units 09:38 09:38 WBC 3.5 L (3.8-10.6) k/uL RBC 2.66 L (3.80-5.40) m/uL Hgb 8.1 L (11.4-16.0) gm/dL Hct 26.6 L (34.0-46.0) % MCHC 30.5 L (31.0-37.0) g/dL RDW 19.6 H (11.5-15.5) % Sodium 130 L (137-145) mmol/L Carbon Dioxide 17 L (22-30) mmol/L BUN 3 L (7-17) mg/dL Creatinine 0.43 L (0.52-1.04) mg/dL Calcium 7.6 L (8.4-10.2) mg/dL Magnesium 1.4 L (1.6-2.3) mg/dL - Imaging and Cardiology CT lumbar spine and CT AP reviewed Assessment and Plan (1) Abdominal pain Current Visit: Yes Status: Acute Priority: High Code(s): R10.9 - UNSPECIFIED ABDOMINAL PAIN SNOMED Code(s): 06126509 (2) Multiple myeloma Current Visit: Yes Status: Acute Priority: High Code(s): C90.00 - MULTIPLE MYELOMA NOT HAVING ACHIEVED REMISSION SNOMED Code(s): 900638869 (3) Lumbar pain Current Visit: Yes Status: Acute Priority: High Code(s): M54.50 - LOW BACK PAIN, UNSPECIFIED SNOMED Code(s): 540828269 (4) Lytic bone lesions on xray Current Visit: Yes Status: Acute Priority: High Code(s): M89.9 - DISORDER OF BONE, UNSPECIFIED SNOMED Code(s): 061019235 Plan: Ms. Sanchez is a very pleasant 63-year-old female with a history of multiple comorbidities who is here for dizziness and hypotension. Workup suggestive of ileus and gastroenteritis. Found to also have bicytopenia. Has longstanding macrocytic anemia that is felt to be due to Depakote. More recently found to have worsening anemia, normocytic, work up with normal iron (anemia of chronic disease), B12 and folate, and IgA kappa multiple myeloma on bone marrow biopsy Sean Houston during hospitalization for colitis, not yet started on treatment. -Recent diagnosis of MM -Significant back pain, suspect due to MM and bone lesions. CT lumbar spine Revealing lytic lesions of L2 and L3 with a mild to moderate compression fracture of the superior endplate of L3, likely pathologic. Mild to moderate spinal stenosis at the L3-4 level. Orthopedics has been consulted and have ordered MRI of the lumbar spine. Zometa 4 mg ordered. Will await further recommendations from ortho team -Treatment not yet discussed due to multiple ongoing issues. Clinic f/u scheduled for 09/18, with Dr. Mike Peace, pending course of hospitalization may need to reschedule -Currently being treated for infection and concern for SBO, NG tube placed, small bowel follow through ordered. Surgery following -Pt was very frustrated as she does not feel that we are discussing her diagnosis and prognosis as well as treatment with her. She thinks she is laying in bed and going to soon. Had long discussion with pt about her condition, what MM is, and staging. I discussed that we are waiting on some blood work to stage her, however discussed that staging of MM is different from solid tumors and guides the best regimen for first treatment and overall expected duration of treatment response. I discussed that this is a chronic disease nowadays with all the different great therapeutic options that are available. -As we are awaiting further information to determine her best initial treatment, she might benefit from pulsed Decadron once her infection is controlled to help control her myeloma temporarily until full treatment is initialized -Pain is appearing better controlled since admission. Will continue to monitor and will need to convert to oral regimen prior to discharge to ensure patient is on adequate pain med regimen -WBC 3.5, hgb 8.1, plts 433,000. Monitor CBC, transfuse for hemoglobin less than 7
--- NOTE | 2023-09-15 16:07 | P.PN ---
Subjective Progress Note Date: 09/15/23 CHIEF COMPLAINT: Abdominal pain HISTORY OF PRESENT ILLNESS: Patient continues to have abdominal pain. She reports that it is improving. However, no gas or bowel movement. Denies any nausea at this time. Has NG tube in place. PHYSICAL EXAM: VITAL SIGNS: Reviewed GENERAL: no acute distress. Head is atraumatic, normocephalic. Hears conversational speech. No nasal drainage. NECK: Supple without lymphadenopathy. CHEST: Non-labored respirations and equal bilateral excursions. CARDIOVASCULAR: Palpable 2+ radial pulses. ABDOMEN: Soft. Mildly distended. Diffuse tenderness. MUSCULOSKELETAL: No clubbing or cyanosis. NEUROLOGIC: No focal or lateralizing signs. Cranial nerves II through XII grossly intact. PSYCH: Appropriate affect. Alert and oriented to person, place and time. SKIN: Well perfused. Good skin turgor. ASSESSMENT: 1. Clinical bowel obstruction PLAN: -Patient scheduled for small bowel follow-through today -Continue NG tube for decompression -Keep patient n.p.o. except for ice chips and popsicles -Continue antiemetics. Scopolamine patch added Physician Regulatory And Compliance Technician note has been reviewed by physician. Signing provider agrees with the documented findings, assessment, and plan of care. Objective - Vital Signs Vital signs: Vital Signs Temp 98.2 F 09/14/23 20:15 Pulse 93 09/15/23 04:40 Resp 18 09/15/23 04:40 BP 97/64 09/15/23 04:40 Pulse Ox 95 09/15/23 04:40 FiO2 Intake & Output 09/14/23 09/15/23 09/15/23 18:59 06:59 18:59 Intake Total 480 Output Total 700 650 Balance -220 -650 Intake: Oral 480 Output: Urine 700 650 Other: Voiding Method External Catheter Diaper # Voids 1 - Labs CBC & Chem 7: 09/15/23 09:38 09/15/23 09:38
[2023-09-15] MEDS: ZOLEDRONIC ACID 4 MG in SODIUM CHLORIDE 0.9% 100 ML IV ONE (16:23)
[2023-09-15] MEDS ORDERED: diazePAM 5 MG TAB PO PRN (17:07)
[2023-09-15] MEDS: BENZOCAINE/MENTHOL LOZENG 1 EACH LOZENGE MUCOUS MEM PRN (17:13)
--- NOTE | 2023-09-15 19:49 | P.PN ---
Subjective Progress Note Date: 09/15/23 Principal diagnosis: Reason for follow-up is ileus possible abdominal sepsis Patient is a 63-year-old female with a past medical history significant for atrial fibrillation reflux pulmonary embolism presenting to the hospital for evaluation of low sodium and potassium, patient did have evidence of ileus low-grade fever prompting this infectious disease consultation On today's evaluation that is 09/15/2023, the patient continues to be afebrile, the patient is on room air and breathing comfortably, the Pt denies having any chest pain or cough, the patient did have episode of vomiting last night requiring placement of NG patient denies any worsening abdominal pain denies any bowel movement. Patient white count is 3.5 creatinine 0.43 as been reported by the nursing staff Objective - Vital Signs Vital signs: Vital Signs Temp 98.4 F 09/15/23 08:00 Pulse 95 09/15/23 08:00 Resp 18 09/15/23 08:00 BP 102/54 09/15/23 08:00 Pulse Ox 99 09/15/23 08:00 FiO2 Intake & Output 09/14/23 09/15/23 09/15/23 18:59 06:59 18:59 Intake Total 480 Output Total 700 650 Balance -220 -650 Intake: Oral 480 Output: Urine 700 650 Other: Voiding Method External Catheter Diaper Diaper # Voids 1 1 - Exam GENERAL DESCRIPTION: Middle-aged female lying in bed in no distress RESPIRATORY SYSTEM: Unlabored breathing , decreased breath sounds at bases HEART: S1 S2 regular rate and rhythm , ABDOMEN: Soft mild tenderness EXTREMITIES: No edema feet - Labs CBC & Chem 7: 09/15/23 09:38 09/15/23 09:38 Labs: Abnormal Lab Results - Last 24 Hours (Table) 09/15/23 09/15/23 Range/Units 09:38 09:38 WBC 3.5 L (3.8-10.6) k/uL RBC 2.66 L (3.80-5.40) m/uL Hgb 8.1 L (11.4-16.0) gm/dL Hct 26.6 L (34.0-46.0) % MCHC 30.5 L (31.0-37.0) g/dL RDW 19.6 H (11.5-15.5) % Sodium 130 L (137-145) mmol/L Carbon Dioxide 17 L (22-30) mmol/L BUN 3 L (7-17) mg/dL Creatinine 0.43 L (0.52-1.04) mg/dL Calcium 7.6 L (8.4-10.2) mg/dL Magnesium 1.4 L (1.6-2.3) mg/dL Assessment and Plan (1) SIRS (systemic inflammatory response syndrome) Current Visit: Yes Status: Acute Code(s): R65.10 - SIRS OF NON-INFECTIOUS ORIGIN W/O ACUTE ORGAN DYSFUNCTION SNOMED Code(s): 479861530 (2) Leukopenia Current Visit: Yes Status: Acute Code(s): D72.819 - DECREASED WHITE BLOOD CELL COUNT, UNSPECIFIED SNOMED Code(s): 82567022 Plan: 1patient presented to hospital with abnormal electrolytes did have some nausea vomiting and abdominal pain CT abdominal pelvis has been suggestive of ileus patient did have leukopenia and a low-grade fever, dealing mostly with the ileus questionably mechanical keeping in mind significant leukopenia and low-grade fever we will need to cover for enteric gram-negative both aerobes and anaerobes 2-patient to continue Rocephin and Flagyl along with bowel rest, patient did have a lytic lesion on the lumbar spine CT orthopedic has been consulted Dictation was produced using [employer] dictation software. please excuse any grammatical, word or spelling errors. Time with Patient: Less than 30
[2023-09-15] MEDS: HEPARIN SOD,PORK IN 0.45% NACL 25,000 UNIT in 0.45% NACL 1 250ML.BAG IV SCH (21:56)
[2023-09-16 04:09] LABS: Anisocytosis Slight; Basophils % (A) 0 %; Eosinophils # (A) 0.1 k/uL (0-0.7); Eosinophils % (A) 2 %; HCT 27.1 % (34.0-46.0); HGB 8.6 gm/dL (11.4-16.0); Hypochromasia Slight; Lymphocytes # (A) 0.5 k/uL (1.0-4.8); Lymphocytes % (A) 15 %; MCH 31.5 pg (25.0-35.0); MCHC 31.8 g/dL (31.0-37.0); MCV 99.1 fL (80.0-100.0); Macrocytosis Moderate; Mean Platelet Volume 7.8; Monocytes # (A) 0.1 k/uL (0-1.0); Monocytes % (A) 3 %; Neutrophils # (A) 2.6 k/uL (1.3-7.7); Neutrophils % (A) 79 %; Platelet Count 290 k/uL (150-450); Poikilocytosis Slight; RBC 2.73 m/uL (3.80-5.40); RDW 19.4 % (11.5-15.5); WBC 3.3 k/uL (3.8-10.6)
[2023-09-16 04:24] LABS: African American GFR (CKD) >90 (>60 ml/min/1.73 sqM); Blood Urea Nitrogen 2 mg/dL (7-17); Calcium 7.5 mg/dL (8.4-10.2); Carbon Dioxide 22 mmol/L (22-30); Glucose 81 mg/dL (74-99); Non-African American GFR(CKD) >90 (>60 ml/min/1.73 sqM)
[2023-09-16 04:39] LABS: Prothrombin Time 11.2 sec (10.0-12.5)
[2023-09-16] MEDS: HEPARIN SODIUM 1,000 UN/ML (10ML VL) IV PRN (04:46)
[2023-09-16 04:59] LABS: Anion Gap 2 mmol/L; Chloride 105 mmol/L (98-107); Potassium 3.3 mmol/L (3.5-5.1); Sodium 129 mmol/L (137-145)
--- NOTE | 2023-09-16 08:27 | P.PN ---
Progress Note - Text Progress Note Date: 09/16/23 Orthopedic spine: History of present illness: Patient is a pleasant 63-year-old female who is seen and examined at bedside for follow-up evaluation of her lumbar spine. She has not had any significant change of her symptoms as compared to yesterday. Lumbar CT imaging was taken previously which showed evidence of lytic lesions at L2 and L3 with moderate compression fracture in the superior endplate, likely pathologic. We were consulted for further evaluation in this regard. Patient states her back pain is new for her and has been ongoing since July 2023 without injury. She does feel her back pain is somewhat worse this morning. She states her overall health has significantly declined since July 2023. She is known to have multiple myeloma and has followed with oncology in the outpatient setting. She states this is a new diagnosis for her. She states she has not had staging for her multiple myeloma. Lumbar MRI imaging with and without contrast is ordered yesterday. Nursing states MRI department is backed up and this has not yet been performed. They are hopeful that this will be performed today, 09/16/2023, at approximately 10:15 AM. She denies any difficulty with her lower extremities. She denies any lower extremity weakness or radiculopathy bilaterally. She does have difficulty with sitting upright and sitting with her legs hanging on the side of the bed as it further exacerbates her low back pain. She states her pain is most significant at her lumbosacral junction radiating across her back towards her hips bilaterally but not down the legs. She does not have any specific increased pain with coughing or sneezing. Patient continues have significant abdominal pain. She has been seen by Dr. Swann. She is being evaluated for ileus versus small bowel obstruction. She has an NG tube intact. She is currently NPO. She continues with further treatment and evaluation for clinical bowel obstruction. She has a significant history which includes admission to [facility] on on 07/29/2023 with septic shock complicated by atrial fibrillation with RVR secondary to enterobacter cloacae bacteremia, which was subsequently complicated by large bowel obstruction at the sigmoid colon. Workup for pancytopenia and during that admission revealed IgA kappa monoclonal protein with M protein 2.78 g/dL with IgA 3289 and suppressed IgG and IgM concerning for multiple myeloma. She was not stable for bone marrow biopsy at that time given her progressive bowel obstruction and was transferred to [facility]. Clinical course there was complicated by acute hypoxic respiratory failure requiring intubation, but progressively improved with supportive measures. Bone marrow biopsy performed on 08/11/2023 at [facility] noted 50-60% plasma cells on flow cytometry with kappa restriction consistent with multiple myeloma. During her admission currently she is being seen by multiple medical providers including hematology/oncology, medicine, general surgery, and infectious disease. Patient does have multiple medical diagnoses including chronic atrial fibrillation on anticoagulation, history of pulmonary embolism on anticoagulation, history of neutropenic colitis, sigmoid colitis, pancytopenia, and history of heart failure. Physical exam: Patient is awake, alert, and oriented 3 Vital signs stable Good chest excursion with deep inspiration and expiration Abdomen is distended; NG tube in place Dorsiflexion, plantarflexion, and extensor hallucis longus positive sustained bilaterally Lower extremity strength 5/5 bilaterally Patient is able to perform good independent range of motion of her bilateral lower extremities Pertinent studies: CT of the lumbar spine taken on 09/14/2023: L2 and L3 lytic lesions with mild to moderate compression fracture of the superior endplate of L3, likely pathologic; findings suggest metastatic disease; L3-4 mild to moderate spinal canal stenosis Assessment: L2 and L3 lytic lesions L3 superior endplate compression fracture deformity Likely metastatic disease L3-4 mild to moderate spinal canal stenosis Low back pain Multi myeloma Abdominal pain Small bowel obstruction versus ileus, currently NG tube in place History of neutropenic colitis, sigmoid colitis, pancytopenia History of chronic systolic heart failure Chronic atrial fibrillation on anticoagulation History of pulmonary embolism on anticoagulation Plan: 1. We will continue with our plan as set forth yesterday. Lumbar MRI imaging with and without contrast is ordered yesterday. Nursing states MRI department is backed up and this has not yet been performed. They are hopeful that this will be performed today, 09/16/2023, at approximately 10:15 AM. Patient has been experiencing lumbosacral pain since July 2023 without injury. She is also having significant difficulty with her abdomen. Lumbar CT imaging was performed which showed evidence of lytic lesions at L2 and L3 with moderate compression fracture in the superior endplate, likely pathologic. We were consulted for further evaluation in this regard. Patient states her back pain is new for her and has been ongoing since July 2023 without injury. She states her overall health has significantly declined since July 2023. She is known to have multiple myeloma and has followed with oncology in the outpatient setting. She states this is a new diagnosis for her. She states she has not had staging for her multiple myeloma. She is not experiencing any lower extremity weakness or radiculopathy bilaterally. Given her significant findings on CT imaging, we will currently plan to obtain MRI imaging of the lumbar spine for further evaluation. Will plan to follow-up after completion of the MRI and reviewing of this imaging to discuss a plan of care proceeding forward. 2. Patient will continue be seen examined by her multiple medical providers for her multiple other medical diagnoses.
[2023-09-16] MEDS: diazePAM 5 MG TAB PO STA (09:49)
--- NOTE | 2023-09-16 12:23 | XR ---
EXAMINATION TYPE: XR abdomen 1V DATE OF EXAM: 09/16/2023 COMPARISON: NONE HISTORY: None TECHNIQUE: One view abdominal series FINDINGS: The osseous structures are intact. The bowel gas pattern is nonspecific. There are dilated bowel loo ps throughout the abdomen. Portion NG tube is seen. There is contrast within the right colon and with in the rectosigmoid junction. IMPRESSION: 1. Retained contrast in the right colon, sigmoid colon and rectum. Dilated bowel loops would be consi stent with obstruction versus severe ileus.
--- NOTE | 2023-09-16 13:37 | P.PN ---
Subjective Progress Note Date: 09/16/23 CHIEF COMPLAINT: Abdominal pain HISTORY OF PRESENT ILLNESS: Patient continues to have abdominal pain. She denies any nausea or vomiting. Still no bowel activity. She was scheduled for small bowel follow-through today. The preliminary x-ray per the radiologist had reported that contrast was seen from the ascending colon to the rectum. NG tube output reported at 750 mL. Patient also scheduled for an MRI of the lumbar spine for further evaluation of the pathologic spinal fracture. PHYSICAL EXAM: VITAL SIGNS: Reviewed GENERAL: no acute distress. Head is atraumatic, normocephalic. Hears conversational speech. No nasal drainage. NECK: Supple without lymphadenopathy. CHEST: Non-labored respirations and equal bilateral excursions. CARDIOVASCULAR: Palpable 2+ radial pulses. ABDOMEN: Soft. Diffuse tenderness. MUSCULOSKELETAL: No clubbing or cyanosis. NEUROLOGIC: No focal or lateralizing signs. Cranial nerves II through XII grossly intact. PSYCH: Appropriate affect. Alert and oriented to person, place and time. SKIN: Well perfused. Good skin turgor. ASSESSMENT: 1. Abdominal pain. No bowel obstruction noted on the preliminary x-ray of the small bowel follow 2. Multiple myeloma, recent diagnosis 3. Lytic bone lesions lumbar spine on CT PLAN: -Small bowel follow-through x-ray canceled for today. Patient has no evidence of bowel obstruction on the preliminary x-ray. Contrast is seen from the ascending colon to the rectum -Continue NG tube for now, until seen by surgeon -Keep patient n.p.o. except for ice chips and popsicles -Continue antiemetics Physician [employer] Clerk note has been reviewed by physician. Signing provider agrees with the documented findings, assessment, and plan of care. Objective - Vital Signs Vital signs: Vital Signs Temp 97.9 F 09/15/23 20:15 Pulse 87 09/16/23 04:15 Resp 16 09/16/23 04:15 BP 111/69 09/16/23 04:15 Pulse Ox 99 09/16/23 04:15 FiO2 Intake & Output 09/15/23 09/16/23 09/16/23 18:59 06:59 18:59 Intake Total 47.469 Output Total 750 Balance -702.531 Intake: Intake, IV Titration 47.469 Amount Heparin Sod,Pork in 0.45% 47.469 NaCl 25,000 unit In 0.45 % NaCl 1 250ml.bag @ 12 UNITS/KG/HR 6.913 mls/hr IV .Q24H [facility] Rx#: [id number] Output: Gastric Drainage 750 Other: Voiding Method Diaper Diaper # Voids 1 - Labs CBC & Chem 7: 09/16/23 03:49 09/16/23 03:49 Labs: Abnormal Lab Results - Last 24 Hours (Table) 09/16/23 09/16/23 Range/Units 03:49 03:49 WBC 3.3 L (3.8-10.6) k/uL RBC 2.73 L (3.80-5.40) m/uL Hgb 8.6 L (11.4-16.0) gm/dL Hct 27.1 L (34.0-46.0) % RDW 19.4 H (11.5-15.5) % Lymphocytes # 0.5 L (1.0-4.8) k/uL Sodium 129 L (137-145) mmol/L Potassium 3.3 L (3.5-5.1) mmol/L BUN 2 L (7-17) mg/dL Creatinine 0.40 L (0.52-1.04) mg/dL Calcium 7.5 L (8.4-10.2) mg/dL
[2023-09-16] MEDS: ACETAMINOPHEN TAB 325 MG TAB PO PRN (14:23)
--- NOTE | 2023-09-16 16:04 | MR ---
EXAMINATION TYPE: MR lumbar spine wo/w con DATE OF EXAM: 09/16/2023 12:53 PM CLINICAL INDICATION:Female, 63 years old with history of Pathologic fracture Lumbar spine; PHH, Patho logic fracture. COMPARISON: None TECHNIQUE: Multi planar, multi sequence imaging was performed utilizing: T1-weighted, T2-weighted, a nd turbo inversion recovery imaging of the lumbar spine. IV Contrast: 5.5 cc Gadavist. (None if empty) FINDINGS: Alignment: The lumbar vertebral bodies have preserved heights and alignment. Cord: The conus medullaris and the distal spinal cord appear unremarkable with regards to their signa l intensity and morphology. Bones/Discs: Adjoining endplates of the L2-L3 vertebral bodies demonstrate edema with loss of the cor [place]. Postcontrast enhancement within the adjacent endplates at L2-L3. There is at least 25% height lo ss of the superior endplate of L3. No significant retropulsion. No organizing fluid collection identi fied. There is also enhancement of the soft tissues surrounding the spine at this level. T12-L1: No evidence of significant spinal canal stenosis. Facet joint arthropathy mild bilateral neur al foraminal stenosis. L1-L2: No evidence of significant spinal canal stenosis. Facet joint arthropathy mild bilateral neura l foraminal stenosis. L2-L3: Edema adjoining the endplates with high T2 signal and low T1 signal. There is loss of the supe rior endplate of L3 with curvilinear low T1/T2 signal line. L3-L4: Disc bulge and facet joint arthropathy result in mild spinal canal and mild bilateral neural f oraminal stenosis. L4-L5: Disc bulge and facet joint arthropathy result in mild spinal canal and mild bilateral neural f oraminal stenosis. L5-S1: The disc is rounded posterior morphology without significant spinal canal stenosis. Facet join t arthropathy with mild bilateral neural foraminal stenosis. No significant spinal canal or neural foraminal stenosis in the remainder of the visualized levels. Other findings: None. IMPRESSION: Findings concerning for osteomyelitis discitis of the L2-L3 disc space with superimposed L3 superior endplate fracture of 25% also felt to be present. No evidence for epidural abscess at this time. Findings communicated to Dee Johnson on 09/16/2023 1:[address] Chad Steinberg.
[2023-09-16] MEDS: LIDOCAINE 4% PATCH TOPICAL SCH (21:53)
[2023-09-17] MEDS ORDERED: ZINC OXIDE PASTE (Z-GUARD) 1 APPLIC TOPICAL PRN (00:21)
--- NOTE | 2023-09-17 06:28 | P.PN ---
Subjective Progress Note Date: 09/16/23 63 years old female with past medical history of multiple medical problems as below including history of bipolar and schizophrenia, history of pulmonary embolism on Eliquis, patient was recently in the hospitalized in this facility about once days for acute Neutropenic sepsis,she was discharged to [facility] also she has been treated for bowel obstruction and she has been followed by surgery team with Dr. Maynard at that time. Patient states that she has history of chronic back pain and difficulty walking for the last 2 months also, she states it is in the lumbar 3 and lumbar 4 spine vertebrae Patient was sent from [facility] because of abnormal labs and low potassium and sodium, patient states that they checked it routinely. Patient is hemodynamically stable and afebrile Labs showed low sodium 128 low potassium 2.8 and low magnesium 1.1 She has chronic leukopenia and currently 3.7, chronic anemia currently 8.5 at baseline LFTs unremarkable EKG shows sinus rhythm at [address]-T changes 09/13/23: Patient seen and evaluated, patient seen by general surgery noted to have significant electrolyte abnormality corrected continue fluid resuscitation, continue supportive care advance diet as tolerated.. CT abdomen pelvis reviewed concern for enteritis. Patient states she does have history of multiple myeloma and was followed up with oncology outpatient continue to have bicytopenia 09/14/23: Patient seen and evaluated bedside, diet has been advanced. Workup reviewed including CBC showed WBC 4.1 hemoglobin 8.4 platelet count of 278, serum chemistry sodium 129 BUN 4 creatinine 0.48 magnesium of 1.4 replaced, CT lumbar spine reviewed does have compression fracture pathological lesions which will need to be evaluated. Patient complains of constipation with no bowel movement in 3 days, 1 dose of MiraLAX ordered 09/15/23: Patient seen and evaluated bedside, patient electrolyte panel reviewed magnesium replaced, appreciate input from orthospine, nasogastric tube remains in place 09/16/2023 Patient is seen and evaluated in follow-up today with multiple medical consultations following. Patient is scheduled to undergo MRI with orthopedics following concerns of possible pathologic fracture versus infection. General surgery following as well and patient is continued with NG tube. Discussing possible removal of the NG tube. Patient currently afebrile with no reports of chest pain or shortness of breath. Patient with significant weakness and continued back pain. A.m. labs pending and will replace electrolytes per protocol Review of systems: Constitutional: No reports of fatigue, fever, or chills Cardiovascular: No reports of chest pain or palpitations Respiratory: No reports of shortness of breath or cough GI: No reports of nausea, vomiting, or diarrhea, requesting NG tube to be removed : No reports of dysuria or retention Neurovascular: reports of weakness and some continued back pain All medications have been reviewed PHYSICAL EXAMINATION: GENERAL: The patient is alert and oriented x3, ill appearing, elderly appearing, thin built, NG tube in place HEENT: Pupils are round and equally reacting to light. EOMI. Normocephalic, atraumatic. CARDIOVASCULAR: S1 and S2 present. No murmurs, rubs, or gallops. PULMONARY: Chest is clear to auscultation, no wheezing or crackles. ABDOMEN: Soft, nontender, nondistended, normoactive bowel sounds. No palpable organomegaly. MUSCULOSKELETAL: No joint swelling or deformity. EXTREMITIES: No cyanosis, clubbing, or pedal edema. NEUROLOGICAL: Gross neurological examination did not reveal any focal deficits. Diffusely weak Assessment: * Acute gastroenteritis * Shock secondary to hypovolemia * Bowel obstruction * Lytic lesions lumbar spine with pathological fracture, L3-L4 spinal stenosis, awaiting MRI * History of neutropenic colitis, sigmoid colitis and pancytopenia * History of chronic systolic heart failure ejection fraction of 40 to 45% * Chronic fibrillation on anticoagulation * History of pulmonary embolism on anticoagulation * Chronic back pain * GI prophylaxis * DVT prophylaxis * Full code Plan: * In regards to gastroenteritis continue patient on IV antibiotic receiving Rocephin and Flagyl day 4 , infectious disease following as well as general surgery * In regards to bowel obstruction, s/p NG tube placement, surgery team following serial abdominal exams patient yoni n.p.o. * Atrial fibrillation continue patient on amiodarone, Eliquis discontinued, started on IV heparin dose * In regards to low back pain CT reviewed, orthospine following and awaiting MRI spine sometime today * Regards to hypertension follow-up lactate levels within normal limits, continue fluid resuscitation, decrease the rate of fluids from * In regards to history of heart failure continue to monitor intake and output continue fluid resuscitation * Regards to chronic back pain, imaging of spine CT lumbar spine does show lytic lesions of lumbar spine, MRI lumbar spine ordered and is being done today. Await official report and follow-up with orthopedics * In regards to pulmonary embolism, Eliquis discontinued patient started on heparin * Status full code * Due to multiple complex medical issues, prognosis is guarded The impression and plan of care has been dictated by Mari Salinas, Nurse Practitioner as directed. Dr. Kathy MD I have performed a history and examination and MDM of this patient, discussed the same with the dictator, and agree with the dictator's assessment and plan as written ,documented as a scribe. Based on total visit time, I have performed more than 50% of the visit. Objective - Vital Signs Vital signs: Vital Signs Temp 97.9 F 09/15/23 20:15 Pulse 87 09/16/23 04:15 Resp 16 09/16/23 04:15 BP 111/69 09/16/23 04:15 Pulse Ox 99 09/16/23 04:15 FiO2 Intake & Output 09/15/23 09/16/23 09/16/23 18:59 06:59 18:59 Intake Total 47.469 Output Total 750 Balance -702.531 Intake: Intake, IV Titration 47.469 Amount Heparin Sod,Pork in 0.45% 47.469 NaCl 25,000 unit In 0.45 % NaCl 1 250ml.bag @ 12 UNITS/KG/HR 6.913 mls/hr IV .Q24H [facility] Rx#: [id number] Output: Gastric Drainage 750 Other: Voiding Method Diaper Diaper # Voids 1 - Labs CBC & Chem 7: 09/16/23 03:49 09/16/23 03:49 Labs: Abnormal Lab Results - Last 24 Hours (Table) 09/15/23 09/15/23 09/16/23 Range/Units 09:38 09:38 03:49 WBC 3.5 L 3.3 L (3.8-10.6) k/uL RBC 2.66 L 2.73 L (3.80-5.40) m/uL Hgb 8.1 L 8.6 L (11.4-16.0) gm/dL Hct 26.6 L 27.1 L (34.0-46.0) % MCHC 30.5 L (31.0-37.0) g/dL RDW 19.6 H 19.4 H (11.5-15.5) % Lymphocytes # 0.5 L (1.0-4.8) k/uL Sodium 130 L (137-145) mmol/L Potassium (3.5-5.1) mmol/L Carbon Dioxide 17 L (22-30) mmol/L BUN 3 L (7-17) mg/dL Creatinine 0.43 L (0.52-1.04) mg/dL Calcium 7.6 L (8.4-10.2) mg/dL Magnesium 1.4 L (1.6-2.3) mg/dL 09/16/23 Range/Units 03:49 WBC (3.8-10.6) k/uL RBC (3.80-5.40) m/uL Hgb (11.4-16.0) gm/dL Hct (34.0-46.0) % MCHC (31.0-37.0) g/dL RDW (11.5-15.5) % Lymphocytes # (1.0-4.8) k/uL Sodium 129 L (137-145) mmol/L Potassium 3.3 L (3.5-5.1) mmol/L Carbon Dioxide (22-30) mmol/L BUN 2 L (7-17) mg/dL Creatinine 0.40 L (0.52-1.04) mg/dL Calcium 7.5 L (8.4-10.2) mg/dL Magnesium (1.6-2.3) mg/dL
[2023-09-17 07:05] LABS: Anisocytosis Slight; Basophils % (A) 0 %; Eosinophils % (A) 0 %; HCT 25.6 % (34.0-46.0); HGB 8.1 gm/dL (11.4-16.0); Hypochromasia Slight; Lymphocytes # (A) 0.4 k/uL (1.0-4.8); Lymphocytes % (A) 12 %; MCH 31.1 pg (25.0-35.0); MCHC 31.5 g/dL (31.0-37.0); MCV 98.9 fL (80.0-100.0); Macrocytosis Moderate; Mean Platelet Volume 8.1; Monocytes # (A) 0.1 k/uL (0-1.0); Monocytes % (A) 3 %; Neutrophils # (A) 2.8 k/uL (1.3-7.7); Neutrophils % (A) 83 %; Platelet Count 316 k/uL (150-450); Poikilocytosis Slight; RBC 2.59 m/uL (3.80-5.40); RDW 19.7 % (11.5-15.5); WBC 3.3 k/uL (3.8-10.6)
[2023-09-17 07:26] LABS: ALT 9 U/L (4-34); AST 14 U/L (14-36); African American GFR (CKD) >90 (>60 ml/min/1.73 sqM); Albumin 1.7 g/dL (3.5-5.0); Alkaline Phosphatase 99 U/L (38-126); Anion Gap 5 mmol/L; Blood Urea Nitrogen 2 mg/dL (7-17); Calcium 6.7 mg/dL (8.4-10.2); Carbon Dioxide 19 mmol/L (22-30); Chloride 106 mmol/L (98-107); Glucose 91 mg/dL (74-99); Magnesium 1.3 mg/dL (1.6-2.3); Non-African American GFR(CKD) >90 (>60 ml/min/1.73 sqM); Potassium 3.1 mmol/L (3.5-5.1); Sodium 130 mmol/L (137-145); Total Bilirubin 0.2 mg/dL (0.2-1.3); Total Protein 4.1 g/dL (6.3-8.2)
[2023-09-17] MEDS ORDERED: Magnesium Replacement Protocol 1 EACH MISC MISCELLANE PRN (09:42)
[2023-09-17] MEDS ORDERED: Potassium Replacement Protocol 1 EACH MISC MISCELLANE PRN (09:42)
--- NOTE | 2023-09-17 11:12 | P.PN ---
Progress Note - Text Progress Note Date: 09/17/23 Orthopedic spine: History of present illness: Patient is a pleasant 63-year-old female who is seen and examined at bedside for follow-up evaluation of her lumbar spine. She has not had any significant change of her symptoms as compared to yesterday. Lumbar CT imaging was taken previously which showed evidence of lytic lesions at L2 and L3 with moderate compression fracture in the superior endplate, likely pathologic. Patient states her back pain is new for her and has been ongoing since July 2023 without injury. She states her overall health has significantly declined since July 2023. She is known to have multiple myeloma and has followed with oncology in the outpatient setting. She states this is a new diagnosis for her. She states she has not had staging for her multiple myeloma. Since being seen and examined yesterday, she has had MRI imaging of her lumbar spine which showed evidence of L2-3 discitis. This imaging was reviewed by myself and Dr. Roberto Nolasco. This was discussed in detail with the patient. We are currently planning for the patient to work through conservative treatment for her discitis with infectious disease. She does continue to have some ongoing low back pain. She denies any difficulty with her lower extremities. She denies any lower extremity weakness or radiculopathy bilaterally. She does have difficulty with sitting upright and sitting with her legs hanging on the side of the bed as it further exacerbates her low back pain. She states her pain is most significant at her lumbosacral junction radiating across her back towards her hips bilaterally but not down the legs. She does not have any specific increased pain with coughing or sneezing. She states she does have a brace at [facility] that a family or friend would be able to pick up truck driver for her. We did discuss this brace could help her with her mobility and ambulation. Patient continues have significant abdominal pain. She has been seen by Dr. Swann. She is being evaluated for ileus versus small bowel obstruction. She has an NG tube intact. She is currently NPO. She continues with further treatment and evaluation for clinical bowel obstruction. She has a significant history which includes admission to [facility] on on 07/29/2023 with septic shock complicated by atrial fibrillation with RVR secondary to enterobacter cloacae bacteremia, which was subsequently complicated by large bowel obstruction at the sigmoid colon. Workup for pancytopenia and during that admission revealed IgA kappa monoclonal protein with M protein 2.78 g/dL with IgA 3289 and suppressed IgG and IgM concerning for multiple myeloma. S he was not stable for bone marrow biopsy at that time given her progressive bowel obstruction and was transferred to [facility]. Clinical course there was complicated by acute hypoxic respiratory failure requiring intubation, but progressively improved with supportive measures. Bone marrow biopsy performed on 08/11/2023 at [facility] noted 50-60% plasma cells on flow cytometry with kappa restriction consistent with multiple myeloma. During her admission currently she is being seen by multiple medical providers including hematology/oncology, medicine, general surgery, and infectious disease. Patient does have multiple medical diagnoses including chronic atrial fibrillation on anticoagulation, history of pulmonary embolism on anticoagulation, history of neutropenic colitis, sigmoid colitis, pancytopenia, and history of heart failure. Patient states she was able to have a bowel movement yesterday. Physical exam: Patient is awake, alert, and oriented 3 Vital signs stable Good chest excursion with deep inspiration and expiration Abdomen is distended; NG tube in place Dorsiflexion, plantarflexion, and extensor hallucis longus positive sustained bilaterally No significant pain with palpation over the lumbar spine Lower extremity strength 5/5 bilaterally Patient is able to perform good independent range of motion of her bilateral lower extremities No lower extremity hyperreflexia Neurovascular intact bilateral lower extremities Pertinent studies: MRI of the lumbar spine taken on 09/16/2023: L2-3 osteomyelitis discitis with edema of the adjoining endplates with superimposed L3 superior endplate fracture of 25% felt to be present; no evidence of epidural abscess; T12-L1 and L1-2 facet joint arthropathy and mild bilateral neural foraminal stenosis; L4-5 disc bulge and facet joint arthropathy with mild central canal stenosis and mild bilateral foraminal stenosis; L5-S1 facet joint arthropathy with mild bilateral foraminal stenosis CT of the lumbar spine taken on 09/14/2023: L2 and L3 lytic lesions with mild to moderate compression fracture of the superior endplate of L3, likely pathologic; findings suggest metastatic disease; L3-4 mild to moderate spinal canal stenosis Assessment: L2-3 osteomyelitis discitis L3 superior endplate compression fracture deformity Likely metastatic disease L3-4 mild to moderate spinal canal stenosis Low back pain Multi myeloma Abdominal pain Small bowel obstruction versus ileus, currently NG tube in place History of neutropenic colitis, sigmoid colitis, pancytopenia History of chronic systolic heart failure Chronic atrial fibrillation on anticoagulation History of pulmonary embolism on anticoagulation Plan: 1. Lumbar MRI imaging was performed which shows evidence of L2-3 osteomyelitis discitis with some compression of the L3 superior endplate. We do not see evidence of epidural abscess. Patient does have bracing that was previously prescribed which is currently at [facility]. She is planning to obtain this brace through her family or friend. We discussed once this brace is delivered and fitted appropriately she should wear this brace to increase her mobility and ambulation. Brace is not happy warm while lying in bed. With her discitis, we will plan to have her work to conservative treatment with IV antibiotics as prescribed and managed by Dr. Maria and infectious disease. We are not currently planning for any acute surgical intervention at her lumbar spine and we will plan to follow her peripherally as she continues with conservative treatment for her lumbar spine as well as treatment for her other medical diagnoses, most specifically her abdomen. Patient may follow-up with Victorino Holbrook PA-C or Dr. Roberto Nolasco at [facility] in 2-3 weeks following discharge. 2. Patient will continue be seen examined by her multiple medical providers for her multiple other medical diagnoses. The patient is seen and examined at bedside. I agree with the statements above and the dictation. I reviewed the imaging as well. I also discussed case with infectious disease Dr. Maria. The patient appears to have a number of medical issues including a significant discitis at L2-3. There is no phlegmon or abscess. She is not having any neurologic deficit or lower extremity radicular symptoms. In review of the imaging at L2-3 there is no phlegmon or abscess. There is no significant stenosis at the level. She is not having any neurologic deficit or lower extremity radicular symptoms. I think that she should continue with aggressive medical management and IV antibiotics. We do not have plans for surgical intervention. Dr. Terry plans to obtain a biopsy of the disc at L2-3 per interventional radiology and I think that is appropriate. They will manage with long-term IV antibiotics. She should continue conservative management.
[2023-09-17] MEDS: POTASSIUM CHLORIDE 10 MEQ in WATER FOR INJECTION 1 100ML.BAG IVPB SCH (12:55)
[2023-09-17] MEDS: MAGNESIUM SULFATE-D5W PMX 1 GM in DEXTROSE/WATER 1 100ML.BAG IVPB SCH (12:56)
--- NOTE | 2023-09-17 13:45 | P.PN ---
Subjective Progress Note Date: 09/17/23 CHIEF COMPLAINT: Abdominal pain HISTORY OF PRESENT ILLNESS: Patient reports she is feeling better. She did have a bowel movement. She is asking if she can eat. Denies any nausea. Patient had MRI of the lumbar spine that reported findings concerning for osteomyelitis and discitis of the L2-L3 disc space. No evidence of epidural abscess at this time. Patient followed by infectious disease and orthopedic spine service. Afebrile. WBC 3.3 Hgb 8.1 platelets 316 sodium 130 potassium 3.1 Cr 0.47 PHYSICAL EXAM: VITAL SIGNS: Reviewed GENERAL: no acute distress. Head is atraumatic, normocephalic. Hears conversational speech. No nasal drainage. NECK: Supple without lymphadenopathy. CHEST: Non-labored respirations and equal bilateral excursions. CARDIOVASCULAR: Palpable 2+ radial pulses. ABDOMEN: Soft. Nondistended no signs of peritonitis MUSCULOSKELETAL: No clubbing or cyanosis. NEUROLOGIC: No focal or lateralizing signs. Cranial nerves II through XII grossly intact. PSYCH: Appropriate affect. Alert and oriented to person, place and time. SKIN: Well perfused. Good skin turgor. ASSESSMENT: 1. Abdominal pain. No bowel obstruction noted on the preliminary x-ray of the small bowel follow 2. Multiple myeloma, recent diagnosis 3. Lytic bone lesions lumbar spine on CT PLAN: -Patient having bowel movements. Discontinue NG tube. Start clear liquid diet -Consult placed for interventional radiology for aspiration of the lumbar spine due to discitis at L2-L3 per infectious disease recommendation Physician Associate Producer note has been reviewed by physician. Signing provider agrees with the documented findings, assessment, and plan of care. Objective - Vital Signs Vital signs: Vital Signs Temp 99 F 09/17/23 08:00 Pulse 89 09/17/23 08:00 Resp 16 09/17/23 08:00 BP 94/57 09/17/23 08:00 Pulse Ox 93 L 09/17/23 08:00 FiO2 Intake & Output 09/16/23 09/17/23 09/17/23 18:59 06:59 18:59 Intake Total 117.374 56.339 113.913 Output Total 500 Balance 117.374 -443.661 113.913 Intake: Intake, IV Titration 117.374 56.339 113.913 Amount Heparin Sod,Pork in 0.45% 117.374 56.339 113.913 NaCl 25,000 unit In 0.45 % NaCl 1 250ml.bag @ 12 UNITS/KG/HR 6.913 mls/hr IV .Q24H [facility] Rx#: [id number] Output: Gastric Drainage 500 Other: Voiding Method Diaper Diaper Diaper # Bowel Movements 1 - Labs CBC & Chem 7: 09/17/23 06:01 09/17/23 06:01 Labs: Abnormal Lab Results - Last 24 Hours (Table) 09/16/23 09/17/23 09/17/23 Range/Units 21:59 06:01 06:01 WBC 3.3 L (3.8-10.6) k/uL RBC 2.59 L (3.80-5.40) m/uL Hgb 8.1 L (11.4-16.0) gm/dL Hct 25.6 L (34.0-46.0) % RDW 19.7 H (11.5-15.5) % Lymphocytes # 0.4 L (1.0-4.8) k/uL APTT 33.1 H 145.2 H* (22.0-30.0) sec Sodium (137-145) mmol/L Potassium (3.5-5.1) mmol/L Carbon Dioxide (22-30) mmol/L BUN (7-17) mg/dL Creatinine (0.52-1.04) mg/dL Calcium (8.4-10.2) mg/dL Magnesium (1.6-2.3) mg/dL Total Protein (6.3-8.2) g/dL Albumin (3.5-5.0) g/dL 09/17/23 Range/Units 06:01 WBC (3.8-10.6) k/uL RBC (3.80-5.40) m/uL Hgb (11.4-16.0) gm/dL Hct (34.0-46.0) % RDW (11.5-15.5) % Lymphocytes # (1.0-4.8) k/uL APTT (22.0-30.0) sec Sodium 130 L (137-145) mmol/L Potassium 3.1 L (3.5-5.1) mmol/L Carbon Dioxide 19 L (22-30) mmol/L BUN 2 L (7-17) mg/dL Creatinine 0.47 L (0.52-1.04) mg/dL Calcium 6.7 L (8.4-10.2) mg/dL Magnesium 1.3 L (1.6-2.3) mg/dL Total Protein 4.1 L (6.3-8.2) g/dL Albumin 1.7 L (3.5-5.0) g/dL
[2023-09-18] MEDS: QUEtiapine 400 MG TAB PO ONE (00:37)
--- NOTE | 2023-09-18 06:07 | P.PN ---
Subjective Progress Note Date: 09/17/23 63 years old female with past medical history of multiple medical problems as below including history of bipolar and schizophrenia, history of pulmonary embolism on Eliquis, patient was recently in the hospitalized in this facility about once days for acute Neutropenic sepsis,she was discharged to [facility] also she has been treated for bowel obstruction and she has been followed by surgery team with Dr. Maynard at that time. Patient states that she has history of chronic back pain and difficulty walking for the last 2 months also, she states it is in the lumbar 3 and lumbar 4 spine vertebrae Patient was sent from [facility] because of abnormal labs and low potassium and sodium, patient states that they checked it routinely. Patient is hemodynamically stable and afebrile Labs showed low sodium 128 low potassium 2.8 and low magnesium 1.1 She has chronic leukopenia and currently 3.7, chronic anemia currently 8.5 at baseline LFTs unremarkable EKG shows sinus rhythm at [address]-T changes 09/13/23: Patient seen and evaluated, patient seen by general surgery noted to have significant electrolyte abnormality corrected continue fluid resuscitation, continue supportive care advance diet as tolerated.. CT abdomen pelvis reviewed concern for enteritis. Patient states she does have history of multiple myeloma and was followed up with oncology outpatient continue to have bicytopenia 09/14/23: Patient seen and evaluated bedside, diet has been advanced. Workup reviewed including CBC showed WBC 4.1 hemoglobin 8.4 platelet count of 278, serum chemistry sodium 129 BUN 4 creatinine 0.48 magnesium of 1.4 replaced, CT lumbar spine reviewed does have compression fracture pathological lesions which will need to be evaluated. Patient complains of constipation with no bowel movement in 3 days, 1 dose of MiraLAX ordered 09/15/23: Patient seen and evaluated bedside, patient electrolyte panel reviewed magnesium replaced, appreciate input from orthospine, nasogastric tube remains in place 09/16/2023 Patient is seen and evaluated in follow-up today with multiple medical consultations following. Patient is scheduled to undergo MRI with orthopedics following concerns of possible pathologic fracture versus infection. General surgery following as well and patient is continued with NG tube. Discussing possible removal of the NG tube. Patient currently afebrile with no reports of chest pain or shortness of breath. Patient with significant weakness and continued back pain. A.m. labs pending and will replace electrolytes per protocol 09/17/2023 Patient is seen and evaluated today with multiple medical consultations following. MRI of the spine yesterday shows concerns of osteomyelitis at the L2-L3 with no epidural abscess noted. Plan is for aspiration with interventional radiology for deep tissue cultures. Infectious disease following and patient is maintained on antibiotics. General surgery following as well and follow-up imaging shows no obstruction. NG tube will be discontinued patient will be started on clear liquids. Patient also reporting significant weakness and inability to ambulate. Recommend PT/OT. Patient to undergo aspiration and appreciate input and recommendations from orthopedics regarding ambulating. Plans are to return to [facility] for continued PT/OT therapy once stabilized and discharged Review of systems: Constitutional: No reports of fatigue, fever, or chills Cardiovascular: No reports of chest pain or palpitations Respiratory: No reports of shortness of breath or cough GI: No reports of nausea, vomiting, or diarrhea, requesting NG tube to be removed and reports to feeling hungry : No reports of dysuria or retention Neurovascular: reports of weakness and some continued back pain, reports inability to ambulate All medications have been reviewed PHYSICAL EXAMINATION: GENERAL: The patient is alert and oriented x3, ill appearing, elderly appearing, thin built, NG tube in place HEENT: Pupils are round and equally reacting to light. EOMI. Normocephalic, atraumatic. CARDIOVASCULAR: S1 and S2 present. No murmurs, rubs, or gallops. PULMONARY: Chest is clear to auscultation, no wheezing or crackles. ABDOMEN: Soft, nontender, nondistended, normoactive bowel sounds. No palpable organomegaly. MUSCULOSKELETAL: No joint swelling or deformity. EXTREMITIES: No cyanosis, clubbing, or pedal edema. NEUROLOGICAL: Gross neurological examination did not reveal any focal deficits. Diffusely weak Assessment: * Acute gastroenteritis * Shock secondary to hypovolemia * Bowel obstruction, resolved on repeated imaging * Lytic lesions lumbar spine with pathological fracture, L3-L4 spinal stenosis, MRI with concerns of osteomyelitis and discitis in that area * History of neutropenic colitis, sigmoid colitis and pancytopenia * History of chronic systolic heart failure ejection fraction of 40 to 45% * Chronic atrial fibrillation on anticoagulation * History of pulmonary embolism on anticoagulation * Chronic back pain * GI prophylaxis * DVT prophylaxis * Full code Plan: * In regards to gastroenteritis continue patient on IV antibiotic receiving Rocephin and Flagyl day 4 , infectious disease following as well as general surgery * In regards to bowel obstruction, s/p NG tube placement, surgery team following and abdominal series are negative for obstruction, NG tube is being discontinued and patient is being started on clear liquid diet * Atrial fibrillation continue patient on amiodarone, Eliquis discontinued, started on IV heparin dose. Patient will need IV heparin held in order to undergo aspiration with interventional radiology * Interventional radiology is consulted for possible aspiration of the spine for deep tissue cultures with concerns of osteomyelitis and discitis in that area * In regards to low back pain CT reviewed, orthospine following and agreeable with aspiration with no immediate plans of surgical intervention * In regards to history of heart failure continue to monitor intake and output continue gentle hydration * Regards to chronic back pain, imaging of spine CT lumbar spine does show lytic lesions of lumbar spine, MRI lumbar spine suggestive of possible osteomyelitis and discitis * In regards to pulmonary embolism, Eliquis discontinued patient started on heparin. Will hold heparin for needle aspiration of the spine * Status full code * Due to multiple complex medical issues, prognosis is guarded The impression and plan of care has been dictated by Mari Salinas, Nurse Practitioner as directed. Dr. Kathy MD I have performed a history and examination and MDM of this patient, discussed the same with the dictator, and agree with the dictator's assessment and plan as written ,documented as a scribe. Based on total visit time, I have performed more than 50% of the visit. Objective - Vital Signs Vital signs: Vital Signs Temp 98 F 09/17/23 04:00 Pulse 106 H 09/17/23 04:00 Resp 16 09/17/23 04:00 BP 93/58 09/17/23 04:00 Pulse Ox 96 09/17/23 04:00 FiO2 Intake & Output 09/16/23 09/17/23 09/17/23 18:59 06:59 18:59 Intake Total 117.374 56.339 113.913 Output Total 500 Balance 117.374 -443.661 113.913 Intake: Intake, IV Titration 117.374 56.339 113.913 Amount Heparin Sod,Pork in 0.45% 117.374 56.339 113.913 NaCl 25,000 unit In 0.45 % NaCl 1 250ml.bag @ 12 UNITS/KG/HR 6.913 mls/hr IV .Q24H [facility] Rx#: [id number] Output: Gastric Drainage 500 Other: Voiding Method Diaper Diaper # Bowel Movements 1 - Labs CBC & Chem 7: 09/17/23 06:01 09/17/23 06:01 Labs: Abnormal Lab Results - Last 24 Hours (Table) 09/16/23 09/17/23 09/17/23 Range/Units 21:59 06:01 06:01 WBC 3.3 L (3.8-10.6) k/uL RBC 2.59 L (3.80-5.40) m/uL Hgb 8.1 L (11.4-16.0) gm/dL Hct 25.6 L (34.0-46.0) % RDW 19.7 H (11.5-15.5) % Lymphocytes # 0.4 L (1.0-4.8) k/uL APTT 33.1 H 145.2 H* (22.0-30.0) sec Sodium (137-145) mmol/L Potassium (3.5-5.1) mmol/L Carbon Dioxide (22-30) mmol/L BUN (7-17) mg/dL Creatinine (0.52-1.04) mg/dL Calcium (8.4-10.2) mg/dL Magnesium (1.6-2.3) mg/dL Total Protein (6.3-8.2) g/dL Albumin (3.5-5.0) g/dL 09/17/23 Range/Units 06:01 WBC (3.8-10.6) k/uL RBC (3.80-5.40) m/uL Hgb (11.4-16.0) gm/dL Hct (34.0-46.0) % RDW (11.5-15.5) % Lymphocytes # (1.0-4.8) k/uL APTT (22.0-30.0) sec Sodium 130 L (137-145) mmol/L Potassium 3.1 L (3.5-5.1) mmol/L Carbon Dioxide 19 L (22-30) mmol/L BUN 2 L (7-17) mg/dL Creatinine 0.47 L (0.52-1.04) mg/dL Calcium 6.7 L (8.4-10.2) mg/dL Magnesium 1.3 L (1.6-2.3) mg/dL Total Protein 4.1 L (6.3-8.2) g/dL Albumin 1.7 L (3.5-5.0) g/dL
[2023-09-18 10:20] LABS: Anisocytosis Moderate; Basophils % (A) 0 %; Eosinophils # (A) 0.1 k/uL (0-0.7); Eosinophils % (A) 3 %; HGB 7.5 gm/dL (11.4-16.0); Hypochromasia Moderate; Lymphocytes # (A) 0.5 k/uL (1.0-4.8); Lymphocytes % (A) 18 %; MCH 31.4 pg (25.0-35.0); MCHC 31.4 g/dL (31.0-37.0); Macrocytosis Moderate; Mean Platelet Volume 8.9; Monocytes # (A) 0.1 k/uL (0-1.0); Monocytes % (A) 2 %; Neutrophils # (A) 2.1 k/uL (1.3-7.7); Neutrophils % (A) 75 %; Platelet Count 224 k/uL (150-450); Poikilocytosis Slight; RDW 20.3 % (11.5-15.5); WBC 2.9 k/uL (3.8-10.6)
[2023-09-18] MEDS: HYDROmorphone 0.5 MG/0.5 ML SYRINGE IVP STA (10:38)
[2023-09-18 10:46] LABS: African American GFR (CKD) >90 (>60 ml/min/1.73 sqM); Anion Gap 5 mmol/L; Blood Urea Nitrogen 3 mg/dL (7-17); Carbon Dioxide 19 mmol/L (22-30); Chloride 105 mmol/L (98-107); Glucose 81 mg/dL (74-99); Magnesium 1.7 mg/dL (1.6-2.3); Non-African American GFR(CKD) >90 (>60 ml/min/1.73 sqM); Potassium 3.4 mmol/L (3.5-5.1); Sodium 129 mmol/L (137-145)
[2023-09-18 10:47] LABS: Calcium 6.1 mg/dL (8.4-10.2)
--- NOTE | 2023-09-18 11:05 | P.PN ---
Subjective Progress Note Date: 09/18/23 CHIEF COMPLAINT: Abdominal pain HISTORY OF PRESENT ILLNESS: Patient is scheduled for aspiration at the discitis site with IR service today. Patient ports her abdominal pain has improved. She is having flatus and bowel movements. Denies any nausea or vomiting. She did eat a small amount of the liquids. But she would prefer to eat real food. She reports some mild mid abdomen discomfort. Afebrile. WBC 2.9 Hgb 7.5 platelets 224 sodium is 129 potassium 3.4 creatinine 0.36 magnesium 1.7 PHYSICAL EXAM: VITAL SIGNS: Reviewed GENERAL: no acute distress. Head is atraumatic, normocephalic. Hears conversational speech. No nasal drainage. NECK: Supple without lymphadenopathy. CHEST: Non-labored respirations and equal bilateral excursions. CARDIOVASCULAR: Palpable 2+ radial pulses. ABDOMEN: Soft. Nondistended. mild mid abdominal tenderness with palpation. no signs of peritonitis MUSCULOSKELETAL: No clubbing or cyanosis. NEUROLOGIC: No focal or lateralizing signs. Cranial nerves II through XII grossly intact. PSYCH: Appropriate affect. Alert and oriented to person, place and time. SKIN: Well perfused. Good skin turgor. ASSESSMENT: 1. Abdominal pain. No bowel obstruction noted on the preliminary x-ray of the small bowel follow 2. Multiple myeloma, recent diagnosis 3. Lytic bone lesions lumbar spine on CT PLAN: -Advance diet to right -interventional radiology for aspiration of the lumbar spine due to discitis at L2-L3 scheduled for today. Continue antibiotics per ID service. -Replace potassium Physician Health Promotion Officer note has been reviewed by physician. Signing provider agrees with the documented findings, assessment, and plan of care. Objective - Vital Signs Vital signs: Vital Signs Temp 98.2 F 09/18/23 04:00 Pulse 84 09/18/23 04:00 Resp 19 09/18/23 04:00 BP 93/51 09/18/23 05:00 Pulse Ox 96 09/18/23 04:00 FiO2 Intake & Output 09/17/23 09/18/23 09/18/23 18:59 06:59 18:59 Intake Total 353.913 112.065 Output Total 1100 Balance 353.913 -987.935 Weight 57.606 kg Intake: Intake, IV Titration 113.913 112.065 Amount Heparin Sod,Pork in 0.45% 113.913 112.065 NaCl 25,000 unit In 0.45 % NaCl 1 250ml.bag @ 12 UNITS/KG/HR 6.913 mls/hr IV .Q24H [facility] Rx#: [id number] Oral 240 0 Output: Urine 1100 Other: Voiding Method Diaper External Catheter External Catheter # Voids 2 # Bowel Movements 1 - Labs CBC & Chem 7: 09/18/23 08:21 09/18/23 08:21 Labs: Abnormal Lab Results - Last 24 Hours (Table) 09/17/23 09/18/23 09/18/23 Range/Units 18:40 08:21 08:21 WBC 2.9 L (3.8-10.6) k/uL RBC 2.40 L (3.80-5.40) m/uL Hgb 7.5 L (11.4-16.0) gm/dL Hct 24.0 L (34.0-46.0) % RDW 20.3 H (11.5-15.5) % Lymphocytes # 0.5 L (1.0-4.8) k/uL APTT 39.7 H (22.0-30.0) sec Sodium 129 L (137-145) mmol/L Potassium 3.4 L (3.5-5.1) mmol/L Carbon Dioxide 19 L (22-30) mmol/L BUN 3 L (7-17) mg/dL Creatinine 0.36 L (0.52-1.04) mg/dL Calcium 6.1 L* (8.4-10.2) mg/dL
[2023-09-18] MEDS: POTASSIUM CHLORIDE ER 20 MEQ TAB.ER PO STA (11:38)
--- NOTE | 2023-09-18 13:17 | CT ---
EXAM: CT disc aspiration DATE OF EXAM: 09/18/2023 11:01 AM COMPARISON STUDIES: 5534, 09/16/2023 PATIENT HISTORY: L2-L3 suspected osteomyelitis or compression fracture and possible discitis FINDINGS: The procedure was discussed with the patient. The risks, complications, alternatives discu ssed and any questions were answered. Informed consent was obtained. Patient was placed prone on the CT table prepped and draped in usual sterile fashion. All elements of maximal barrier technique and s terile technique utilized. A 20-gauge needle was placed under direct CT guidance into the L2-L3 disc space and a small aspirate was obtained and sent to pathology for analysis. Samples taken to pathology for analysis. Patient st able throughout the procedure and stable upon discharge from Department of radiology. Impression: 1. Successful CT-guided disc aspiration L2-L3. Pathology pending.
--- NOTE | 2023-09-18 15:33 | P.PN ---
Subjective Progress Note Date: 09/16/23 Principal diagnosis: Reason for follow-up is ileus possible abdominal sepsis Patient is a 63-year-old female with a past medical history significant for atrial fibrillation reflux pulmonary embolism presenting to the hospital for evaluation of low sodium and potassium, patient did have evidence of ileus low-grade fever prompting this infectious disease consultation On today's evaluation that is 09/16/2023, Patient is afebrile this morning patient is currently on room air and denies having any shortness of breath, the patient denies any chest pain or cough, the patient continued to have the NG complaining of nausea but no vomiting still complaining of abdominal discomfort did not have any bowel movement Patient white count is 3.3 creatinine 0.40 Objective - Vital Signs Vital signs: Vital Signs Temp 97.9 F 09/15/23 20:15 Pulse 87 09/16/23 04:15 Resp 16 09/16/23 04:15 BP 111/69 09/16/23 04:15 Pulse Ox 99 09/16/23 04:15 FiO2 Intake & Output 09/15/23 09/16/23 09/16/23 18:59 06:59 18:59 Intake Total 47.469 Output Total 750 Balance -702.531 Intake: Intake, IV Titration 47.469 Amount Heparin Sod,Pork in 0.45% 47.469 NaCl 25,000 unit In 0.45 % NaCl 1 250ml.bag @ 12 UNITS/KG/HR 6.913 mls/hr IV .Q[facility]H [facility] Rx#: [id number] Output: Gastric Drainage 750 Other: Voiding Method Diaper Diaper # Voids 1 - Exam GENERAL DESCRIPTION: Middle-aged female lying in bed in no distress RESPIRATORY SYSTEM: Unlabored breathing , decreased breath sounds at bases HEART: S1 S2 regular rate and rhythm , ABDOMEN: Soft mild tenderness EXTREMITIES: No edema feet - Labs CBC & Chem 7: 09/18/23 08:21 09/18/23 08:21 Labs: Abnormal Lab Results - Last 24 Hours (Table) 09/16/23 09/16/23 Range/Units 03:49 03:49 WBC 3.3 L (3.8-10.6) k/uL RBC 2.73 L (3.80-5.40) m/uL Hgb 8.6 L (11.4-16.0) gm/dL Hct 27.1 L (34.0-46.0) % RDW 19.4 H (11.5-15.5) % Lymphocytes # 0.5 L (1.0-4.8) k/uL Sodium 129 L (137-145) mmol/L Potassium 3.3 L (3.5-5.1) mmol/L BUN 2 L (7-17) mg/dL Creatinine 0.40 L (0.52-1.04) mg/dL Calcium 7.5 L (8.4-10.2) mg/dL Assessment and Plan (1) SIRS (systemic inflammatory response syndrome) Current Visit: Yes Status: Acute Code(s): R65.10 - SIRS OF NON-INFECTIOUS ORIGIN W/O ACUTE ORGAN DYSFUNCTION SNOMED Code(s): 919523129 (2) Leukopenia Current Visit: Yes Status: Acute Code(s): D72.819 - DECREASED WHITE BLOOD CELL COUNT, UNSPECIFIED SNOMED Code(s): 57378146 (3) Abnormal CT scan, lumbar spine Current Visit: Yes Status: Acute Code(s): R93.7 - ABNORMAL FINDINGS ON DIAGNOSTIC IMAGING OF PRT MS SYS SNOMED Code(s): 808064106 Plan: 1patient presented to hospital with abnormal electrolytes did have some nausea vomiting and abdominal pain CT abdominal pelvis has been suggestive of ileus patient did have leukopenia and a low-grade fever, dealing mostly with the ileus questionably mechanical keeping in mind significant leukopenia and low-grade fever we will need to cover for enteric gram-negative both aerobes and anaerobes 2-patient to continue Rocephin and Flagyl along with bowel rest, patient did have a lytic lesion on the lumbar spine CT orthopedic has been consulted, MRI has been ordered results will be followed Dictation was produced using [employer] dictation software. please excuse any grammatical, word or spelling errors. Time with Patient: Less than 30
--- NOTE | 2023-09-18 15:34 | P.PN ---
Subjective Progress Note Date: 09/17/23 Principal diagnosis: Reason for follow-up is ileus possible abdominal sepsis Patient is a 63-year-old female with a past medical history significant for atrial fibrillation reflux pulmonary embolism presenting to the hospital for evaluation of low sodium and potassium, patient did have evidence of ileus low-grade fever prompting this infectious disease consultation On today's evaluation that is 09/17/2023, patient did spike a fever yesterday afternoon however the patient is afebrile since then patient is breathing comfortably room air patient still have the NG complaining of abdominal discomfort no bowel movement denies any worsening lower back pain. Patient white count is 3.3, creatinine 0.47 Objective - Vital Signs Vital signs: Vital Signs Temp 99 F 09/17/23 08:00 Pulse 92 09/17/23 12:00 Resp 16 09/17/23 12:00 BP 87/47 09/17/23 12:00 Pulse Ox 95 09/17/23 12:00 FiO2 Intake & Output 09/16/23 09/17/23 09/17/23 18:59 06:59 18:59 Intake Total 117.374 56.339 113.913 Output Total 500 Balance 117.374 -443.661 113.913 Intake: Intake, IV Titration 117.374 56.339 113.913 Amount Heparin Sod,Pork in 0.45% 117.374 56.339 113.913 NaCl 25,000 unit In 0.45 % NaCl 1 250ml.bag @ 12 UNITS/KG/HR 6.913 mls/hr IV .Q24H [facility] Rx#: [id number] Output: Gastric Drainage 500 Other: Voiding Method Diaper Diaper Diaper # Bowel Movements 1 - Exam GENERAL DESCRIPTION: Middle-aged female lying in bed in no distress RESPIRATORY SYSTEM: Unlabored breathing , decreased breath sounds at bases HEART: S1 S2 regular rate and rhythm , ABDOMEN: Soft mild tenderness EXTREMITIES: No edema feet - Labs CBC & Chem 7: 09/18/23 08:21 09/18/23 08:21 Labs: Abnormal Lab Results - Last 24 Hours (Table) 09/16/23 09/17/23 09/17/23 Range/Units 21:59 06:01 06:01 WBC 3.3 L (3.8-10.6) k/uL RBC 2.59 L (3.80-5.40) m/uL Hgb 8.1 L (11.4-16.0) gm/dL Hct 25.6 L (34.0-46.0) % RDW 19.7 H (11.5-15.5) % Lymphocytes # 0.4 L (1.0-4.8) k/uL APTT 33.1 H 145.2 H* (22.0-30.0) sec Sodium (137-145) mmol/L Potassium (3.5-5.1) mmol/L Carbon Dioxide (22-30) mmol/L BUN (7-17) mg/dL Creatinine (0.52-1.04) mg/dL Calcium (8.4-10.2) mg/dL Magnesium (1.6-2.3) mg/dL Total Protein (6.3-8.2) g/dL Albumin (3.5-5.0) g/dL 09/17/23 Range/Units 06:01 WBC (3.8-10.6) k/uL RBC (3.80-5.40) m/uL Hgb (11.4-16.0) gm/dL Hct (34.0-46.0) % RDW (11.5-15.5) % Lymphocytes # (1.0-4.8) k/uL APTT (22.0-30.0) sec Sodium 130 L (137-145) mmol/L Potassium 3.1 L (3.5-5.1) mmol/L Carbon Dioxide 19 L (22-30) mmol/L BUN 2 L (7-17) mg/dL Creatinine 0.47 L (0.52-1.04) mg/dL Calcium 6.7 L (8.4-10.2) mg/dL Magnesium 1.3 L (1.6-2.3) mg/dL Total Protein 4.1 L (6.3-8.2) g/dL Albumin 1.7 L (3.5-5.0) g/dL Assessment and Plan (1) SIRS (systemic inflammatory response syndrome) Current Visit: Yes Status: Acute Code(s): R65.10 - SIRS OF NON-INFECTIOUS ORIGIN W/O ACUTE ORGAN DYSFUNCTION SNOMED Code(s): 131693071 (2) Leukopenia Current Visit: Yes Status: Acute Code(s): D72.819 - DECREASED WHITE BLOOD CELL COUNT, UNSPECIFIED SNOMED Code(s): 74812640 Plan: 1patient presented to hospital with abnormal electrolytes did have some nausea vomiting and abdominal pain CT abdominal pelvis has been suggestive of ileus patient did have leukopenia and a low-grade fever, dealing mostly with the ileus questionably mechanical keeping in mind significant leukopenia and low-grade fever we will need to cover for enteric gram-negative both aerobes and anaerobes 2-patient MRI of the lumbosacral spine suspicious for possible discitis/osteomyelitis discussed with the spine surgery recommending IR aspiration for biopsy and no surgical intervention, IR has been consulted patient is covered with Rocephin and Flagyl at this point empirically Dictation was produced using [employer] dictation software. please excuse any grammatical, word or spelling errors. Time with Patient: Less than 30
--- NOTE | 2023-09-18 15:35 | P.PN ---
Subjective Progress Note Date: 09/18/23 Principal diagnosis: Reason for follow-up is ileus possible abdominal sepsis Patient is a 63-year-old female with a past medical history significant for atrial fibrillation reflux pulmonary embolism presenting to the hospital for evaluation of low sodium and potassium, patient did have evidence of ileus low-grade fever prompting this infectious disease consultation On today's evaluation that is 09/18/2023,the patient denies any fever or any chills, patient is breathing comfortably on room air, the patient denies chest pain shortness of breath and no significant cough, patient did have removal of the NG and she did have bowel movement and has been started on a diet with the patient has been tolerating Patient white count of 2.9 creatinine 0.36 Objective - Vital Signs Vital signs: Vital Signs Temp 98.2 F 09/18/23 04:00 Pulse 94 09/18/23 11:00 Resp 18 09/18/23 11:00 BP 91/59 09/18/23 11:00 Pulse Ox 94 L 09/18/23 11:00 FiO2 Intake & Output 09/17/23 09/18/23 09/18/23 18:59 06:59 18:59 Intake Total 353.913 112.065 Output Total 1100 Balance 353.913 -987.935 Weight 57.606 kg Intake: Intake, IV Titration 113.913 112.065 Amount Heparin Sod,Pork in 0.45% 113.913 112.065 NaCl 25,000 unit In 0.45 % NaCl 1 250ml.bag @ 12 UNITS/KG/HR 6.913 mls/hr IV .Q24H [facility] Rx#: [id number] Oral 240 0 Output: Urine 1100 Other: Voiding Method Diaper External Catheter External Catheter # Voids 2 # Bowel Movements 1 - Exam GENERAL DESCRIPTION: Middle-aged female lying in bed in no distress RESPIRATORY SYSTEM: Unlabored breathing , decreased breath sounds at bases HEART: S1 S2 regular rate and rhythm , ABDOMEN: Soft mild tenderness EXTREMITIES: No edema feet - Labs CBC & Chem 7: 09/18/23 08:21 09/18/23 08:21 Labs: Abnormal Lab Results - Last 24 Hours (Table) 09/17/23 09/18/23 09/18/23 Range/Units 18:40 08:21 08:21 WBC 2.9 L (3.8-10.6) k/uL RBC 2.40 L (3.80-5.40) m/uL Hgb 7.5 L (11.4-16.0) gm/dL Hct 24.0 L (34.0-46.0) % RDW 20.3 H (11.5-15.5) % Lymphocytes # 0.5 L (1.0-4.8) k/uL APTT 39.7 H (22.0-30.0) sec Sodium 129 L (137-145) mmol/L Potassium 3.4 L (3.5-5.1) mmol/L Carbon Dioxide 19 L (22-30) mmol/L BUN 3 L (7-17) mg/dL Creatinine 0.36 L (0.52-1.04) mg/dL Calcium 6.1 L* (8.4-10.2) mg/dL Assessment and Plan (1) SIRS (systemic inflammatory response syndrome) Current Visit: Yes Status: Acute Code(s): R65.10 - SIRS OF NON-INFECTIOUS ORIGIN W/O ACUTE ORGAN DYSFUNCTION SNOMED Code(s): 053986629 (2) Leukopenia Current Visit: Yes Status: Acute Code(s): D72.819 - DECREASED WHITE BLOOD CELL COUNT, UNSPECIFIED SNOMED Code(s): 28777920 (3) Discitis of lumbar region Current Visit: Yes Status: Acute Code(s): M46.46 - DISCITIS, UNSPECIFIED, LUMBAR REGION SNOMED Code(s): 374997067 Plan: 1patient presented to hospital with abnormal electrolytes did have some nausea vomiting and abdominal pain CT abdominal pelvis has been suggestive of ileus patient did have leukopenia and a low-grade fever, dealing mostly with the ileus questionably mechanical keeping in mind significant leukopenia and low-grade fever we will need to cover for enteric gram-negative both aerobes and anaerobes 2-patient MRI of the lumbosacral spine suspicious for possible discitis/osteomyelitis discussed with the spine surgery recommending IR aspirat ion for biopsy which was completed this morning results will be followed 3-patient is covered with Rocephin and Flagyl discharge antibiotic on the basis of final culture Multiple question concern answered Dictation was produced using [employer] software. please excuse any grammatical, word or spelling errors. Time with Patient: Less than 30
[2023-09-18] MEDS: SODIUM CHLORIDE 0.9% 500 ML 500 ML IV ONE (16:30)
[2023-09-18] MEDS: MIDODRINE 5 MG TAB PO ONE (16:53)
[2023-09-18] MEDS: MIDODRINE 5 MG TAB PO SCH (20:41)
[2023-09-18] MEDS: MAGNESIUM OXIDE 400 MG TAB PO SCH (21:40)
[2023-09-19] MEDS: SODIUM CHLORIDE 0.9% 500 ML 500 ML IV ONE (02:06)
--- NOTE | 2023-09-19 06:18 | P.PN ---
Subjective Progress Note Date: 09/18/23 63 years old female with past medical history of multiple medical problems as below including history of bipolar and schizophrenia, history of pulmonary embolism on Eliquis, patient was recently in the hospitalized in this facility about once days for acute Neutropenic sepsis,she was discharged to [facility] also she has been treated for bowel obstruction and she has been followed by surgery team with Dr. Maynard at that time. Patient states that she has history of chronic back pain and difficulty walking for the last 2 months also, she states it is in the lumbar 3 and lumbar 4 spine vertebrae Patient was sent from [facility] because of abnormal labs and low potassium and sodium, patient states that they checked it routinely. Patient is hemodynamically stable and afebrile Labs showed low sodium 128 low potassium 2.8 and low magnesium 1.1 She has chronic leukopenia and currently 3.7, chronic anemia currently 8.5 at baseline LFTs unremarkable EKG shows sinus rhythm at [address]-T changes 09/13/23: Patient seen and evaluated, patient seen by general surgery noted to have significant electrolyte abnormality corrected continue fluid resuscitation, continue supportive care advance diet as tolerated.. CT abdomen pelvis reviewed concern for enteritis. Patient states she does have history of multiple myeloma and was followed up with oncology outpatient continue to have bicytopenia 09/14/23: Patient seen and evaluated bedside, diet has been advanced. Workup reviewed including CBC showed WBC 4.1 hemoglobin 8.4 platelet count of 278, serum chemistry sodium 129 BUN 4 creatinine 0.48 magnesium of 1.4 replaced, CT lumbar spine reviewed does have compression fracture pathological lesions which will need to be evaluated. Patient complains of constipation with no bowel movement in 3 days, 1 dose of MiraLAX ordered 09/15/23: Patient seen and evaluated bedside, patient electrolyte panel reviewed magnesium replaced, appreciate input from orthospine, nasogastric tube remains in place 09/16/2023 Patient is seen and evaluated in follow-up today with multiple medical consultations following. Patient is scheduled to undergo MRI with orthopedics following concerns of possible pathologic fracture versus infection. General surgery following as well and patient is continued with NG tube. Discussing possible removal of the NG tube. Patient currently afebrile with no reports of chest pain or shortness of breath. Patient with significant weakness and continued back pain. A.m. labs pending and will replace electrolytes per protocol 09/17/2023 Patient is seen and evaluated today with multiple medical consultations following. MRI of the spine yesterday shows concerns of osteomyelitis at the L2-L3 with no epidural abscess noted. Plan is for aspiration with interventional radiology for deep tissue cultures. Infectious disease following and patient is maintained on antibiotics. General surgery following as well and follow-up imaging shows no obstruction. NG tube will be discontinued patient will be started on clear liquids. Patient also reporting significant weakness and inability to ambulate. Recommend PT/OT. Patient to undergo aspiration and appreciate input and recommendations from orthopedics regarding ambulating. Plans are to return to [facility] for continued PT/OT therapy once stabilized and discharged 09/18/2023 Patient is seen and evaluated in follow-up status post aspiration by interventional radiology and cultures are pending. Patient is maintained on antibiotics with infectious disease following. Patient did have NG tube removed and tolerating diet although not much of an appetite. Patient is very tearful on exam as she is extremely weak and cannot walk and continues to have pain. Discussed with nursing staff about requiring with orthopedics if there are restrictions as patient would benefit from PT/OT therapy daily. Patient's blood pressures have been on the lower side and chronically has low blood pressure and takes a significant amount of narcotics will make midodrine 10 mg 3 times daily and monitor closely. Review of systems: Constitutional: No reports of fatigue, fever, or chills, reports increased anxiety Cardiovascular: No reports of chest pain or palpitations Respiratory: No reports of shortness of breath or cough GI: No reports of nausea, vomiting, or diarrhea, tolerating clear liquids, not much of an appetite : No reports of dysuria or retention Neurovascular: reports of weakness and some continued back pain, reports inability to ambulate All medications have been reviewed PHYSICAL EXAMINATION: GENERAL: The patient is alert and oriented x3, ill appearing, elderly appearing, thin built HEENT: Pupils are round and equally reacting to light. EOMI. Normocephalic, atraumatic. CARDIOVASCULAR: S1 and S2 present. No murmurs, rubs, or gallops. PULMONARY: Chest is clear to auscultation, no wheezing or crackles. ABDOMEN: Soft, nontender, nondistended, normoactive bowel sounds. No palpable organomegaly. MUSCULOSKELETAL: No joint swelling or deformity. EXTREMITIES: No cyanosis, clubbing, or pedal edema. NEUROLOGICAL: Gross neurological examination did not reveal any focal deficits. Diffusely weak Assessment: * Acute gastroenteritis * Shock secondary to hypovolemia * Bowel obstruction, resolved on repeated imaging, NG tube removed and started on clear liquids per surgery * Lytic lesions lumbar spine with pathological fracture, L3-L4 spinal stenosis, MRI with concerns of osteomyelitis and discitis in that area status post needle aspiration with interventional radiology on 09/18/2023 * History of neutropenic colitis, sigmoid colitis and pancytopenia * History of chronic systolic heart failure ejection fraction of 40 to 45% * Chronic atrial fibrillation on anticoagulation * History of pulmonary embolism on anticoagulation * Chronic back pain * Gait dysfunction, medical debility * GI prophylaxis * DVT prophylaxis * Full code Plan: * In regards to gastroenteritis continue patient on IV antibiotic with infectious disease following as well as general surgery * In regards to bowel obstruction, s/p NG tube placement, surgery team following and abdominal series are negative for obstruction, NG tube discontinued and patient is being started on clear liquid diet * Atrial fibrillation continue patient on amiodarone, Eliquis discontinued, started on IV heparin dose. Okay to resume IV heparin 4 hours after needle aspiration per interventional radiology * Interventional radiology following and patient is status post aspiration of the spine for deep tissue cultures with concerns of osteomyelitis and discitis in that area * In regards to low back pain CT reviewed, orthospine following and agreeable with aspiration with no immediate plans of surgical intervention * In regards to history of heart failure continue to monitor intake and output continue gentle hydration * Blood pressures have been extremely low and being started on midodrine and increased to 10 mg 3 times daily. Patient chronically has low blood pressure and does take a number of pain medications * Regards to chronic back pain, imaging of spine CT lumbar spine does show lytic lesions of lumbar spine, MRI lumbar spine suggestive of possible osteomyelitis and discitis * In regards to pulmonary embolism, Eliquis held and patient remains on heparin. * full code * Due to multiple complex medical issues, prognosis is guarded The impression and plan of care has been dictated by Mari Salinas, Nurse Practitioner as directed. Dr. Kathy MD I have performed a history and examination and MDM of this patient, discussed the same with the dictator, and agree with the dictator's assessment and plan as written ,documented as a scribe. Based on total visit time, I have performed more than 50% of the visit. Objective - Vital Signs Vital signs: Vital Signs Temp 98.2 F 09/18/23 04:00 Pulse 84 09/18/23 04:00 Resp 19 09/18/23 04:00 BP 93/51 09/18/23 05:00 Pulse Ox 96 09/18/23 04:00 FiO2 Intake & Output 09/17/23 09/17/23 09/18/23 06:59 18:59 06:59 Intake Total 56.339 353.913 112.065 Output Total 500 1100 Balance -443.661 353.913 -987.935 Weight 57.606 kg Intake: Intake, IV Titration 56.339 113.913 112.065 Amount Heparin Sod,Pork in 0.45% 56.339 113.913 112.065 NaCl 25,000 unit In 0.45 % NaCl 1 250ml.bag @ 12 UNITS/KG/HR 6.913 mls/hr IV .Q24H [facility] Rx#: [id number] Oral 240 0 Output: Gastric Drainage 500 Urine 1100 Other: Voiding Method Diaper Diaper External Catheter # Voids 2 # Bowel Movements 1 1 - Labs CBC & Chem 7: 09/18/23 08:21 09/18/23 08:21 Labs: Abnormal Lab Results - Last 24 Hours (Table) 09/17/23 09/17/23 09/17/23 Range/Units 06:01 06:01 06:01 WBC 3.3 L (3.8-10.6) k/uL RBC 2.59 L (3.80-5.40) m/uL Hgb 8.1 L (11.4-16.0) gm/dL Hct 25.6 L (34.0-46.0) % RDW 19.7 H (11.5-15.5) % Lymphocytes # 0.4 L (1.0-4.8) k/uL APTT 145.2 H* (22.0-30.0) sec Sodium 130 L (137-145) mmol/L Potassium 3.1 L (3.5-5.1) mmol/L Carbon Dioxide 19 L (22-30) mmol/L BUN 2 L (7-17) mg/dL Creatinine 0.47 L (0.52-1.04) mg/dL Calcium 6.7 L (8.4-10.2) mg/dL Magnesium 1.3 L (1.6-2.3) mg/dL Total Protein 4.1 L (6.3-8.2) g/dL Albumin 1.7 L (3.5-5.0) g/dL 09/17/23 Range/Units 18:40 WBC (3.8-10.6) k/uL RBC (3.80-5.40) m/uL Hgb (11.4-16.0) gm/dL Hct (34.0-46.0) % RDW (11.5-15.5) % Lymphocytes # (1.0-4.8) k/uL APTT 39.7 H (22.0-30.0) sec Sodium (137-145) mmol/L Potassium (3.5-5.1) mmol/L Carbon Dioxide (22-30) mmol/L BUN (7-17) mg/dL Creatinine (0.52-1.04) mg/dL Calcium (8.4-10.2) mg/dL Magnesium (1.6-2.3) mg/dL Total Protein (6.3-8.2) g/dL Albumin (3.5-5.0) g/dL
[2023-09-19] MEDS ORDERED: MIDODRINE 5 MG TAB PO SCH (07:30)
[2023-09-19 08:36] LABS: Anisocytosis Moderate; HCT 22.7 % (34.0-46.0); HGB 7.1 gm/dL (11.4-16.0); Hypochromasia Marked; MCH 32.1 pg (25.0-35.0); MCHC 31.2 g/dL (31.0-37.0); Macrocytosis Marked; Mean Platelet Volume 8.9; Platelet Count 166 k/uL (150-450); Poikilocytosis Slight; RBC 2.21 m/uL (3.80-5.40); RDW 20.9 % (11.5-15.5)
[2023-09-19 09:02] LABS: ALT 8 U/L (4-34); AST 14 U/L (14-36); African American GFR (CKD) >90 (>60 ml/min/1.73 sqM); Albumin 1.4 g/dL (3.5-5.0); Alkaline Phosphatase 86 U/L (38-126); Anion Gap 2 mmol/L; Blood Urea Nitrogen <2 mg/dL (7-17); Carbon Dioxide 18 mmol/L (22-30); Chloride 112 mmol/L (98-107); Glucose 83 mg/dL (74-99); Magnesium 1.5 mg/dL (1.6-2.3); Non-African American GFR(CKD) >90 (>60 ml/min/1.73 sqM); Potassium 3.4 mmol/L (3.5-5.1); Sodium 132 mmol/L (137-145); Total Bilirubin 0.2 mg/dL (0.2-1.3); Total Protein 3.6 g/dL (6.3-8.2)
[2023-09-19 09:39] LABS: Calcium 5.8 mg/dL (8.4-10.2)
[2023-09-19 09:57] LABS: Eosinophils # (M) 0.06 k/uL (0-0.7); Lymphocytes # (M) 0.39 k/uL (1.0-4.8); Metamyelocytes # (M) 0.03 k/uL (0); Metamyelocytes % 1 %; Monocytes # (M) 0.09 k/uL (0-1.0); Myelocytes # (M) 0.03 k/uL (0); Myelocytes % 1 %; Neutrophils # (M) 2.46 k/uL (1.3-7.7); Neutrophils % (M) 82 %; Nucleated Red Blood Cells 0 /100 WBC (0-0); Total Cells Counted 200
--- NOTE | 2023-09-19 14:17 | P.PN ---
Subjective Progress Note Date: 09/19/23 CHIEF COMPLAINT: Abdominal pain HISTORY OF PRESENT ILLNESS: Patient complains of diarrhea. She is to watery stools this morning. She does report some lower suprapubic abdominal pain. She is status post CT aspiration of the lumbar spine for her discitis. She denies any nausea or vomiting. Afebrile. Patient hypotensive. Patient receiving IV fluids and midodrine. WBC 3.0 Hgb 7.1 platelets 166 sodium is 132 potassium 3.4 creatinine 0.34 magnesium 1.5 PHYSICAL EXAM: VITAL SIGNS: Reviewed GENERAL: no acute distress. Head is atraumatic, normocephalic. Hears conversational speech. No nasal drai nage. NECK: Supple without lymphadenopathy. CHEST: Non-labored respirations and equal bilateral excursions. CARDIOVASCULAR: Palpable 2+ radial pulses. ABDOMEN: Soft. Nondistended. Mild tenderness to palpation lower mid abdomen MUSCULOSKELETAL: No clubbing or cyanosis. NEUROLOGIC: No focal or lateralizing signs. Cranial nerves II through XII grossly intact. PSYCH: Appropriate affect. Alert and oriented to person, place and time. SKIN: Well perfused. Good skin turgor. ASSESSMENT: 1. Abdominal pain. Possible ileus. No bowel obstruction noted on the preliminary x-ray of the small bowel follow 2. Multiple myeloma, recent diagnosis 3. Lytic bone lesions lumbar spine on CT 4. Hypokalemia 5. Hypomagnesemia 6. Discitis lumbar region PLAN: -Check stool for C. difficile -Replace potassium and magnesium -Continue regular diet -Antibiotics per infectious disease Physician Meteorological Engineer note has been reviewed by physician. Signing provider agrees with the documented findings, assessment, and plan of care. Objective - Vital Signs Vital signs: Vital Signs Temp 98.4 F 09/19/23 08:00 Pulse 91 09/19/23 08:00 Resp 18 09/19/23 08:00 BP 93/46 09/19/23 08:00 Pulse Ox 96 09/19/23 08:00 FiO2 Intake & Output 09/18/23 09/19/23 09/19/23 18:59 06:59 18:59 Intake Total 1174 271.498 301.862 Balance 1174 271.498 301.862 Intake: Intake, IV Titration 700 151.498 65.862 Amount Heparin Sod,Pork in 0.45% 151.498 65.862 NaCl 25,000 unit In 0.45 % NaCl 1 250ml.bag @ 12 UNITS/KG/HR 6.913 mls/hr IV .Q24H [facility] Rx#: [id number] Sodium Chloride 0.9% 500 500 ml 500 ml @ 999 mls/hr IV .Q31M [facility] Rx#:[id number] cefTRIAXone 2 gm In 100 Sodium Chloride 0.9% 50 ml @ 100 mls/hr IVPB Q24HR [facility] Rx#:[id number] metroNIDAZOLE-NS PMX 500 100 mg In Saline 1 100ml.bag @ 100 mls/hr IVPB Q8H [facility] Rx#:[id number] Oral [id number] 120 [id number] Other: Voiding Method External Catheter Diaper Diaper # Voids 1 1 1 # Bowel Movements 1 - Labs CBC & Chem 7: 09/19/23 07:40 09/19/23 07:40 Labs: Abnormal Lab Results - Last 24 Hours (Table) 09/18/23 09/18/23 09/19/23 Range/Units 13:40 23:34 07:40 WBC (3.8-10.6) k/uL RBC (3.80-5.40) m/uL Hgb (11.4-16.0) gm/dL Hct (34.0-46.0) % MCV (80.0-100.0) fL RDW (11.5-15.5) % Lymphocytes # (Manual) (1.0-4.8) k/uL Metamyelocytes # (Man) (0) k/uL Myelocytes # (Manual) (0) k/uL Macrocytosis APTT 63.4 H 95.4 H (22.0-30.0) sec Sodium (137-145) mmol/L Potassium (3.5-5.1) mmol/L Chloride (98-107) mmol/L Carbon Dioxide (22-30) mmol/L BUN (7-17) mg/dL Creatinine (0.52-1.04) mg/dL Calcium (8.4-10.2) mg/dL Magnesium (1.6-2.3) mg/dL C-Reactive Protein 7.1 H (<1.0) mg/dL Total Protein (6.3-8.2) g/dL Albumin (3.5-5.0) g/dL 09/19/23 09/19/23 Range/Units 07:40 07:40 WBC 3.0 L (3.8-10.6) k/uL RBC 2.21 L (3.80-5.40) m/uL Hgb 7.1 L (11.4-16.0) gm/dL Hct 22.7 L (34.0-46.0) % MCV 103.0 H (80.0-100.0) fL RDW 20.9 H (11.5-15.5) % Lymphocytes # (Manual) 0.39 L (1.0-4.8) k/uL Metamyelocytes # (Man) 0.03 H (0) k/uL Myelocytes # (Manual) 0.03 H (0) k/uL Macrocytosis Marked A APTT (22.0-30.0) sec Sodium 132 L (137-145) mmol/L Potassium 3.4 L (3.5-5.1) mmol/L Chloride 112 H (98-107) mmol/L Carbon Dioxide 18 L (22-30) mmol/L BUN <2 L (7-17) mg/dL Creatinine 0.34 L (0.52-1.04) mg/dL Calcium 5.8 L* (8.4-10.2) mg/dL Magnesium 1.5 L (1.6-2.3) mg/dL C-Reactive Protein (<1.0) mg/dL Total Protein 3.6 L (6.3-8.2) g/dL Albumin 1.4 L (3.5-5.0) g/dL
--- NOTE | 2023-09-19 15:27 | P.PN ---
Subjective Progress Note Date: 09/19/23 63 years old female with past medical history of multiple medical problems as below including history of bipolar and schizophrenia, history of pulmonary embolism on Eliquis, patient was recently in the hospitalized in this facility about once days for acute Neutropenic sepsis,she was discharged to [facility] also she has been treated for bowel obstruction and she has been followed by surgery team with Dr. Maynard at that time. Patient states that she has history of chronic back pain and difficulty walking for the last 2 months also, she states it is in the lumbar 3 and lumbar 4 spine vertebrae Patient was sent from [facility] because of abnormal labs and low potassium and sodium, patient states that they checked it routinely. Patient is hemodynamically stable and afebrile Labs showed low sodium 128 low potassium 2.8 and low magnesium 1.1 She has chronic leukopenia and currently 3.7, chronic anemia currently 8.5 at baseline LFTs unremarkable EKG shows sinus rhythm at [address]-T changes 09/19/2023 --patient denies any fever or any chills, patient is breathing comfortably on room air, the patient denies chest pain shortness of breath and no significant cough, patient did have removal of the NG and she did have bowel movement and has been started on a diet with the patient has been tolerating Patient white count of 2.9 creatinine 0.36 -patient presented to hospital with abnormal electrolytes did have some nausea vomiting and abdominal pain CT abdominal pelvis has been suggestive of ileus patient did have leukopenia and a low-grade fever, dealing mostly with the ileus questionably mechanical keeping in mind significant leukopenia and low-grade fever we will need to cover for enteric gram-negative both aerobes and anaerobes -patient MRI of the lumbosacral spine suspicious for possible discitis/osteomyelitis discussed with the spine surgery recommending IR aspiration for biopsy which was completed this morning results will be followed -patient is covered with Rocephin and Flagyl discharge antibiotic on the basis of final culture Objective - Vital Signs Vital signs: Vital Signs Temp 98.3 F 09/19/23 04:00 Pulse 84 09/19/23 04:00 Resp 17 09/19/23 04:00 BP 86/58 09/19/23 05:30 Pulse Ox 95 09/19/23 04:00 FiO2 Intake & Output 09/18/23 09/19/23 09/19/23 18:59 06:59 18:59 Intake Total 1174 271.498 301.862 Balance 1174 271.498 301.862 Intake: Intake, IV Titration 700 151.498 65.862 Amount Heparin Sod,Pork in 0.45% 151.498 65.862 NaCl 25,000 unit In 0.45 % NaCl 1 250ml.bag @ 12 UNITS/KG/HR 6.913 mls/hr IV .Q24H [facility] Rx#: [id number] Sodium Chloride 0.9% 500 500 ml 500 ml @ 999 mls/hr IV .Q31M [facility] Rx#:[id number] cefTRIAXone 2 gm In 100 Sodium Chloride 0.9% 50 ml @ 100 mls/hr IVPB Q24HR [facility] Rx#:[id number] metroNIDAZOLE-NS PMX 500 100 mg In Saline 1 100ml.bag @ 100 mls/hr IVPB Q8H [facility] Rx#:[id number] Oral [id number] 120 [id number] Other: Voiding Method External Catheter Diaper # Voids 1 1 2 # Bowel Movements 1 - Exam GENERAL: The patient is alert and oriented x3, ill appearing, elderly appearing, thin built HEENT: Pupils are round and equally reacting to light. EOMI. Normocephalic, atraumatic. CARDIOVASCULAR: S1 and S2 present. No murmurs, rubs, or gallops. PULMONARY: Chest is clear to auscultation, no wheezing or crackles. ABDOMEN: Soft, nontender, nondistended, normoactive bowel sounds. No palpable organomegaly. MUSCULOSKELETAL: No joint swelling or deformity. EXTREMITIES: No cyanosis, clubbing, or pedal edema. NEUROLOGICAL: Gross neurological examination did not reveal any focal deficits. Diffusely weak - Labs CBC & Chem 7: 09/19/23 07:40 09/19/23 07:40 Labs: Abnormal Lab Results - Last 24 Hours (Table) 09/18/23 09/18/23 09/18/23 Range/Units 08:21 13:40 23:34 WBC (3.8-10.6) k/uL RBC (3.80-5.40) m/uL Hgb (11.4-16.0) gm/dL Hct (34.0-46.0) % MCV (80.0-100.0) fL RDW (11.5-15.5) % Lymphocytes # (Manual) (1.0-4.8) k/uL Metamyelocytes # (Man) (0) k/uL Myelocytes # (Manual) (0) k/uL Macrocytosis APTT 63.4 H (22.0-30.0) sec Sodium 129 L (137-145) mmol/L Potassium 3.4 L (3.5-5.1) mmol/L Chloride (98-107) mmol/L Carbon Dioxide 19 L (22-30) mmol/L BUN 3 L (7-17) mg/dL Creatinine 0.36 L (0.52-1.04) mg/dL Calcium 6.1 L* (8.4-10.2) mg/dL Magnesium (1.6-2.3) mg/dL C-Reactive Protein 7.1 H (<1.0) mg/dL Total Protein (6.3-8.2) g/dL Albumin (3.5-5.0) g/dL 09/19/23 09/19/23 09/19/23 Range/Units 07:40 07:40 07:40 WBC 3.0 L (3.8-10.6) k/uL RBC 2.21 L (3.80-5.40) m/uL Hgb 7.1 L (11.4-16.0) gm/dL Hct 22.7 L (34.0-46.0) % MCV 103.0 H (80.0-100.0) fL RDW 20.9 H (11.5-15.5) % Lymphocytes # (Manual) 0.39 L (1.0-4.8) k/uL Metamyelocytes # (Man) 0.03 H (0) k/uL Myelocytes # (Manual) 0.03 H (0) k/uL Macrocytosis Marked A APTT 95.4 H (22.0-30.0) sec Sodium 132 L (137-145) mmol/L Potassium 3.4 L (3.5-5.1) mmol/L Chloride 112 H (98-107) mmol/L Carbon Dioxide 18 L (22-30) mmol/L BUN <2 L (7-17) mg/dL Creatinine 0.34 L (0.52-1.04) mg/dL Calcium 5.8 L* (8.4-10.2) mg/dL Magnesium 1.5 L (1.6-2.3) mg/dL C-Reactive Protein (<1.0) mg/dL Total Protein 3.6 L (6.3-8.2) g/dL Albumin 1.4 L (3.5-5.0) g/dL Assessment and Plan Assessment: * Acute gastroenteritis * Shock secondary to hypovolemia * Bowel obstruction, resolved on repeated imaging, NG tube removed and started on clear liquids per surgery * Lytic lesions lumbar spine with pathological fracture, L3-L4 spinal stenosis, MRI with concerns of osteomyelitis and discitis in that area status post needle aspiration with interventional radiology on 09/18/2023 * History of neutropenic colitis, sigmoid colitis and pancytopenia * History of chronic systolic heart failure ejection fraction of 40 to 45% * Chronic atrial fibrillation on anticoagulation * History of pulmonary embolism on anticoagulation * Chronic back pain * Gait dysfunction, medical debility * GI prophylaxis * DVT prophylaxis * Full code Plan: * In regards to gastroenteritis continue patient on IV antibiotic with infectio us disease following as well as general surgery * In regards to bowel obstruction, s/p NG tube placement, surgery team following and abdominal series are negative for obstruction, NG tube discontinued and patient is being started on clear liquid diet * Atrial fibrillation continue patient on amiodarone, Eliquis discontinued, started on IV heparin dose. Okay to resume IV heparin 4 hours after needle aspiration per interventional radiology * Interventional radiology following and patient is status post aspiration of the spine for deep tissue cultures with concerns of osteomyelitis and discitis in that area * In regards to low back pain CT reviewed, orthospine following and agreeable with aspiration with no immediate plans of surgical intervention * In regards to history of heart failure continue to monitor intake and output continue gentle hydration * Blood pressures have been extremely low and being started on midodrine and increased to 10 mg 3 times daily. Patient chronically has low blood pressure and does take a number of pain medications * Regards to chronic back pain, imaging of spine CT lumbar spine does show lytic lesions of lumbar spine, MRI lumbar spine suggestive of possible osteomyelitis and discitis * In regards to pulmonary embolism, Eliquis held and patient remains on heparin. * full code * Due to multiple complex medical issues, prognosis is guarded
--- NOTE | 2023-09-19 16:12 | P.PN ---
Subjective Progress Note Date: 09/19/23 Principal diagnosis: Reason for follow-up is ileus possible abdominal sepsis Patient is a 63-year-old female with a past medical history significant for atrial fibrillation reflux pulmonary embolism presenting to the hospital for evaluation of low sodium and potassium, patient did have evidence of ileus low-grade fever prompting this infectious disease consultation On today's evaluation that is 09/19/2023,the patient remains to be afebrile, patient is on room air not requiring supplemental oxygen and denies any shortness of breath no chest pain or cough.Patient denies having any nausea or vomiting, abdominal pain has improved has been complaining of diarrhea, 2 episodes reported by the nursing staff this morning and no worsening back pain. Patient white count is 3.0 creatinine 0.34 aspiration from the lumbar spine currently pending Objective - Vital Signs Vital signs: Vital Signs Temp 98.4 F 09/19/23 08:00 Pulse 91 09/19/23 08:00 Resp 18 09/19/23 08:00 BP 93/46 09/19/23 08:00 Pulse Ox 96 09/19/23 08:00 FiO2 Intake & Output 09/18/23 09/19/23 09/19/23 18:59 06:59 18:59 Intake Total 1174 271.498 301.862 Balance 1174 271.498 301.862 Intake: Intake, IV Titration 700 151.498 65.862 Amount Heparin Sod,Pork in 0.45% 151.498 65.862 NaCl 25,000 unit In 0.45 % NaCl 1 250ml.bag @ 12 UNITS/KG/HR 6.913 mls/hr IV .Q24H [facility] Rx#: [id number] Sodium Chloride 0.9% 500 500 ml 500 ml @ 999 mls/hr IV .Q31M [facility] Rx#:[id number] cefTRIAXone 2 gm In 100 Sodium Chloride 0.9% 50 ml @ 100 mls/hr IVPB Q24HR [facility] Rx#:[id number] metroNIDAZOLE-NS PMX 500 100 mg In Saline 1 100ml.bag @ 100 mls/hr IVPB Q8H [facility] Rx#:[id number] Oral [id number] 120 [id number] Other: Voiding Method External Catheter Diaper Diaper # Voids 1 1 1 # Bowel Movements 1 - Exam GENERAL DESCRIPTION: Middle-aged female lying in bed in no distress RESPIRATORY SYSTEM: Unlabored breathing , decreased breath sounds at bases HEART: S1 S2 regular rate and rhythm , ABDOMEN: Soft mild tenderness EXTREMITIES: No edema feet - Labs CBC & Chem 7: 09/19/23 07:40 09/19/23 07:40 Labs: Abnormal Lab Results - Last 24 Hours (Table) 09/18/23 09/18/23 09/19/23 Range/Units 13:40 23:34 07:40 WBC (3.8-10.6) k/uL RBC (3.80-5.40) m/uL Hgb (11.4-16.0) gm/dL Hct (34.0-46.0) % MCV (80.0-100.0) fL RDW (11.5-15.5) % Lymphocytes # (Manual) (1.0-4.8) k/uL Metamyelocytes # (Man) (0) k/uL Myelocytes # (Manual) (0) k/uL Macrocytosis APTT 63.4 H 95.4 H (22.0-30.0) sec Sodium (137-145) mmol/L Potassium (3.5-5.1) mmol/L Chloride (98-107) mmol/L Carbon Dioxide (22-30) mmol/L BUN (7-17) mg/dL Creatinine (0.52-1.04) mg/dL Calcium (8.4-10.2) mg/dL Magnesium (1.6-2.3) mg/dL C-Reactive Protein 7.1 H (<1.0) mg/dL Total Protein (6.3-8.2) g/dL Albumin (3.5-5.0) g/dL 09/19/23 09/19/23 Range/Units 07:40 07:40 WBC 3.0 L (3.8-10.6) k/uL RBC 2.21 L (3.80-5.40) m/uL Hgb 7.1 L (11.4-16.0) gm/dL Hct 22.7 L (34.0-46.0) % MCV 103.0 H (80.0-100.0) fL RDW 20.9 H (11.5-15.5) % Lymphocytes # (Manual) 0.39 L (1.0-4.8) k/uL Metamyelocytes # (Man) 0.03 H (0) k/uL Myelocytes # (Manual) 0.03 H (0) k/uL Macrocytosis Marked A APTT (22.0-30.0) sec Sodium 132 L (137-145) mmol/L Potassium 3.4 L (3.5-5.1) mmol/L Chloride 112 H (98-107) mmol/L Carbon Dioxide 18 L (22-30) mmol/L BUN <2 L (7-17) mg/dL Creatinine 0.34 L (0.52-1.04) mg/dL Calcium 5.8 L* (8.4-10.2) mg/dL Magnesium 1.5 L (1.6-2.3) mg/dL C-Reactive Protein (<1.0) mg/dL Total Protein 3.6 L (6.3-8.2) g/dL Albumin 1.4 L (3.5-5.0) g/dL Assessment and Plan (1) SIRS (systemic inflammatory response syndrome) Current Visit: Yes Status: Acute Code(s): R65.10 - SIRS OF NON-INFECTIOUS ORIGIN W/O ACUTE ORGAN DYSFUNCTION SNOMED Code(s): 772680377 (2) Leukopenia Current Visit: Yes Status: Acute Code(s): D72.819 - DECREASED WHITE BLOOD CELL COUNT, UNSPECIFIED SNOMED Code(s): 27219267 (3) Discitis of lumbar region Current Visit: Yes Status: Acute Code(s): M46.46 - DISCITIS, UNSPECIFIED, LUMBAR REGION SNOMED Code(s): 359117237 Plan: 1patient presented to hospital with abnormal electrolytes did have some nausea vomiting and abdominal pain CT abdominal pelvis has been suggestive of ileus patient did have leukopenia and a low-grade fever, dealing mostly with the ileus questionably mechanical keeping in mind significant leukopenia and low-grade fever we will need to cover for enteric gram-negative both aerobes and anaerobes 2-patient MRI of the lumbosacral spine suspicious for possible disciti s/osteomyelitis discussed with the spine surgery recommending IR aspiration for biopsy has been completed cultures are currently pending 3-patient is covered with Rocephin and Flagyl, did have significant diarrhea we will check a stool for C. difficile add Questran for symptomatic relief Dictation was produced using [employer] software. please excuse any grammatical, word or spelling errors. Time with Patient: Less than 30
[2023-09-19] MEDS: POTASSIUM CHLORIDE ER 20 MEQ TAB.ER PO STA (17:20)
[2023-09-19] MEDS: MAGNESIUM SULFATE-D5W PMX 1 GM in DEXTROSE/WATER 1 100ML.BAG IVPB SCH (17:21)
[2023-09-19] MEDS: CHOLESTYRAMINE (WITH SUGAR) 4 GM PACKET PO SCH (18:48)
[2023-09-19] MEDS: CALCIUM GLUCONATE IN NACL 2 GM in SALINE 1 100ML.BAG IVPB ONE (20:23)
[2023-09-20 03:11] LABS: Protein, Total 4.3 g/dL (6.2-8.2)
[2023-09-20 07:48] LABS: Anisocytosis Moderate; Basophils % (A) 0 %; Eosinophils # (A) 0.1 k/uL (0-0.7); Eosinophils % (A) 2 %; HCT 24.8 % (34.0-46.0); HGB 7.6 gm/dL (11.4-16.0); Hypochromasia Marked; Lymphocytes # (A) 0.6 k/uL (1.0-4.8); Lymphocytes % (A) 18 %; MCH 30.8 pg (25.0-35.0); MCHC 30.4 g/dL (31.0-37.0); MCV 101.2 fL (80.0-100.0); Macrocytosis Moderate; Mean Platelet Volume 8.4; Monocytes # (A) 0.1 k/uL (0-1.0); Monocytes % (A) 2 %; Neutrophils # (A) 2.5 k/uL (1.3-7.7); Neutrophils % (A) 76 %; Platelet Count 171 k/uL (150-450); Poikilocytosis Slight; RBC 2.45 m/uL (3.80-5.40); RDW 20.6 % (11.5-15.5); WBC 3.4 k/uL (3.8-10.6)
[2023-09-20 08:24] LABS: Anion Gap 4 mmol/L; Blood Urea Nitrogen <2 mg/dL (7-17); Carbon Dioxide 19 mmol/L (22-30); Chloride 111 mmol/L (98-107); Glucose 87 mg/dL (74-99); Potassium 3.6 mmol/L (3.5-5.1); Sodium 134 mmol/L (137-145)
[2023-09-20 08:25] LABS: African American GFR (CKD) >90 (>60 ml/min/1.73 sqM); Non-African American GFR(CKD) >90 (>60 ml/min/1.73 sqM)
[2023-09-20 08:28] LABS: Calcium 6.2 mg/dL (8.4-10.2)
--- NOTE | 2023-09-20 11:02 | P.PN ---
Subjective Progress Note Date: 09/19/23 S/p CT guided disc aspiration L2-L3. Culture pending. Continues IV abx, pt afebrile x 72 hours. Reporting some improvement in pain. WBC 3.0, hgb 7.1, plt 166 Objective - Vital Signs Vital signs: Vital Signs Temp 98.4 F 09/19/23 08:00 Pulse 91 09/19/23 08:00 Resp 18 09/19/23 08:00 BP 93/46 09/19/23 08:00 Pulse Ox 96 09/19/23 08:00 FiO2 Intake & Output 09/18/23 09/19/23 09/19/23 18:59 06:59 18:59 Intake Total 1174 271.498 301.862 Balance 1174 271.498 301.862 Weight 57.606 kg Intake: Intake, IV Titration 700 151.498 65.862 Amount Heparin Sod,Pork in 0.45% 151.498 65.862 NaCl 25,000 unit In 0.45 % NaCl 1 250ml.bag @ 12 UNITS/KG/HR 6.913 mls/hr IV .Q24H [facility] Rx#: [id number] Sodium Chloride 0.9% 500 500 ml 500 ml @ 999 mls/hr IV .Q31M [facility] Rx#:[id number] cefTRIAXone 2 gm In 100 Sodium Chloride 0.9% 50 ml @ 100 mls/hr IVPB Q24HR [facility] Rx#:[id number] metroNIDAZOLE-NS PMX 500 100 mg In Saline 1 100ml.bag @ 100 mls/hr IVPB Q8H [facility] Rx#:[id number] Oral [id number] 120 236 Other: Voiding Method External Catheter Diaper Diaper # Voids 1 1 1 # Bowel Movements 1 - Constitutional General appearance: Present: average body habitus, no acute distress - EENT ENT: Present: hearing grossly normal - Respiratory Details: breathing even and unlabored - Cardiovascular Details: skin warm and dry - Integumentary Integumentary: Present: pale. Absent: cyanotic - Musculoskeletal Musculoskeletal: Present: generalized weakness - Psychiatric Psychiatric: Present: A&O x's 3 - Labs CBC & Chem 7: 09/20/23 07:03 09/20/23 07:03 Labs: Abnormal Lab Results - Last 24 Hours (Table) 09/18/23 09/19/23 09/19/23 Range/Units 23:34 07:40 07:40 WBC 3.0 L (3.8-10.6) k/uL RBC 2.21 L (3.80-5.40) m/uL Hgb 7.1 L (11.4-16.0) gm/dL Hct 22.7 L (34.0-46.0) % MCV 103.0 H (80.0-100.0) fL RDW 20.9 H (11.5-15.5) % Lymphocytes # (Manual) 0.39 L (1.0-4.8) k/uL Metamyelocytes # (Man) 0.03 H (0) k/uL Myelocytes # (Manual) 0.03 H (0) k/uL Macrocytosis Marked A APTT 63.4 H 95.4 H (22.0-30.0) sec Sodium (137-145) mmol/L Potassium (3.5-5.1) mmol/L Chloride (98-107) mmol/L Carbon Dioxide (22-30) mmol/L BUN (7-17) mg/dL Creatinine (0.52-1.04) mg/dL Calcium (8.4-10.2) mg/dL Magnesium (1.6-2.3) mg/dL Total Protein (6.3-8.2) g/dL Albumin (3.5-5.0) g/dL 09/19/23 Range/Units 07:40 WBC (3.8-10.6) k/uL RBC (3.80-5.40) m/uL Hgb (11.4-16.0) gm/dL Hct (34.0-46.0) % MCV (80.0-100.0) fL RDW (11.5-15.5) % Lymphocytes # (Manual) (1.0-4.8) k/uL Metamyelocytes # (Man) (0) k/uL Myelocytes # (Manual) (0) k/uL Macrocytosis APTT (22.0-30.0) sec Sodium 132 L (137-145) mmol/L Potassium 3.4 L (3.5-5.1) mmol/L Chloride 112 H (98-107) mmol/L Carbon Dioxide 18 L (22-30) mmol/L BUN <2 L (7-17) mg/dL Creatinine 0.34 L (0.52-1.04) mg/dL Calcium 5.8 L* (8.4-10.2) mg/dL Magnesium 1.5 L (1.6-2.3) mg/dL Total Protein 3.6 L (6.3-8.2) g/dL Albumin 1.4 L (3.5-5.0) g/dL Microbiology - Last 24 Hours (Table) 09/18/23 11:00 Gram Stain - Preliminary Aspirate Assessment and Plan (1) Abdominal pain Current Visit: Yes Status: Acute Priority: High Code(s): R10.9 - UNSPECIFIED ABDOMINAL PAIN SNOMED Code(s): 25659272 (2) Multiple myeloma Current Visit: Yes Status: Acute Priority: High Code(s): C90.00 - MULTIPLE MYELOMA NOT HAVING ACHIEVED REMISSION SNOMED Code(s): 587689265 (3) Lumbar pain Current Visit: Yes Status: Acute Priority: High Code(s): M54.50 - LOW BACK PAIN, UNSPECIFIED SNOMED Code(s): 519927935 (4) Lytic bone lesions on xray Current Visit: Yes Status: Acute Priority: High Code(s): M89.9 - DISORDER OF BONE, UNSPECIFIED SNOMED Code(s): 907228183 (5) Discitis of lumbar region Current Visit: Yes Status: Acute Priority: High Code(s): M46.46 - DISCITIS, UNSPECIFIED, LUMBAR REGION SNOMED Code(s): 403977086 Plan: Ms. Sanchez is a very pleasant 63-year-old female with a history of multiple comorbidities who is here for dizziness and hypotension. Workup suggestive of ileus and gastroenteritis. Found to also have bicytopenia. Has longstanding macrocytic anemia that is felt to be due to Depakote. More recently found to have worsening anemia, normocytic, work up with normal iron (anemia of chronic disease), B12 and folate, and IgA kappa multiple myeloma on bone marrow biopsy Sean Houston during hospitalization for colitis, not yet started on treatment. -Recent diagnosis of MM -Significant back pain, suspect due to MM and bone lesions. CT lumbar spine Revealing lytic lesions of L2 and L3 with a mild to moderate compression fracture of the superior endplate of L3, likely pathologic. Mild to moderate spinal stenosis at the L3-4 level. Orthopedics has been consulted and have ordered MRI of the lumbar spine. Zometa 4 mg ordered. -Lumbar MRI revealed findings concerning for osteomyelitis discitis of the L2-L3 disc space with superimposed L3 superior endplate fracture of 25%. No evidence for epidural abscess. -S/p CT guided disc aspiration of L2-L3. Culture pending. Continues on IV abx -SBO ruled out, NG tube removed. Surgery following -Had long discussion with pt about her condition, what MM is, staging, and treatments. I discussed that we are waiting on some blood work to stage her, however discussed that staging of MM is different from solid tumors and guides the best regimen for first treatment and overall expected duration of treatment response. I discussed that this is a chronic disease nowadays with all the different great therapeutic options that are available. -As we are awaiting further information to determine her best initial treatment, she might benefit from pulsed Decadron once her infection is controlled to help control her myeloma temporarily until full treatment is initialized -Treatment not yet discussed due to multiple ongoing issues. Clinic f/u was scheduled for 09/18, with Dr. Mike Peace, will reschedule upon discharge -MM labs last done in July. Will repeat labs. If IgG low, will add IVIG -Calcium 5.8 today, with albumin 1.4. Corrected calcium 7.9. Will obtain ionized calcium. Calcium supplementation has been ordered by IM team -WBC 3.0, hgb 7.1, plts 166,000. Monitor CBC, transfuse for hemoglobin less than 7 or if symptomatic. Please use irradiated blood products Doctor attests: I performed a history and physical examination of this patient, developed impression and plan of care. Discussed with dictator. I agree with dictators note, documented as a scribe.
[2023-09-20] MEDS: CEFEPIME 2 GM in SODIUM CHLORIDE 0.9% 100 ML IVPB SCH (11:43)
--- NOTE | 2023-09-20 13:49 | P.PN ---
Subjective Progress Note Date: 09/20/23 Principal diagnosis: Reason for follow-up is ileus possible abdominal sepsis Patient is a 63-year-old female with a past medical history significant for atrial fibrillation reflux pulmonary embolism presenting to the hospital for evaluation of low sodium and potassium, patient did have evidence of ileus low-grade fever prompting this infectious disease consultation On today's evaluation that is 09/20/2023, the patient continues to be afebrile, the patient is on room air and breathing comfortably, the Pt denies having any chest pain or cough, the patient has been complaining of abdominal distention nausea but no vomiting mention did not have any bowel movement still complaining of lower back pain but no worsening. Patient white count is 3.4 creatinine [address]-guided aspiration from the lumbar spine is growing gram-negative bacilli Objective - Vital Signs Vital signs: Vital Signs Temp 98.5 F 09/20/23 07:46 Pulse 93 09/20/23 07:46 Resp 16 09/20/23 07:46 BP 89/53 09/20/23 07:46 Pulse Ox 98 09/20/23 07:46 FiO2 Intake & Output 09/19/23 09/20/23 09/20/23 18:59 06:59 18:59 Intake Total 301.862 171.78 Output Total 700 Balance 301.862 -528.22 Weight 57.606 kg Intake: Intake, IV Titration 65.862 171.78 Amount Heparin Sod,Pork in 0.45% 65.862 171.78 NaCl 25,000 unit In 0.45 % NaCl 1 250ml.bag @ 12 UNITS/KG/HR 6.913 mls/hr IV .Q24H [facility] Rx#: [id number] Oral 236 0 Output: Urine 700 Other: Voiding Method Diaper External Catheter External Catheter # Voids 1 # Bowel Movements 1 - Exam GENERAL DESCRIPTION: Middle-aged female lying in bed in no distress RESPIRATORY SYSTEM: Unlabored breathing , decreased breath sounds at bases HEART: S1 S2 regular rate and rhythm , ABDOMEN: Soft mild tenderness EXTREMITIES: No edema feet - Labs CBC & Chem 7: 09/20/23 07:03 09/20/23 07:03 Labs: Abnormal Lab Results - Last 24 Hours (Table) 09/19/23 09/19/23 09/19/23 Range/Units 07:40 07:40 17:41 WBC (3.8-10.6) k/uL RBC (3.80-5.40) m/uL Hgb (11.4-16.0) gm/dL Hct (34.0-46.0) % MCV (80.0-100.0) fL MCHC (31.0-37.0) g/dL RDW (11.5-15.5) % Lymphocytes # (1.0-4.8) k/uL Lymphocytes # (Manual) 0.39 L (1.0-4.8) k/uL Metamyelocytes # (Man) 0.03 H (0) k/uL Myelocytes # (Manual) 0.03 H (0) k/uL APTT 50.2 H (22.0-30.0) sec Sodium 132 L (137-145) mmol/L Potassium 3.4 L (3.5-5.1) mmol/L Chloride 112 H (98-107) mmol/L Carbon Dioxide 18 L (22-30) mmol/L BUN <2 L (7-17) mg/dL Creatinine 0.34 L (0.52-1.04) mg/dL Calcium 5.8 L* (8.4-10.2) mg/dL Ionized Calcium Kristyn (4.5-5.3) mg/dL Magnesium 1.5 L (1.6-2.3) mg/dL Total Protein 3.6 L (6.3-8.2) g/dL Total Protein (PEP) (6.2-8.2) g/dL Albumin 1.4 L (3.5-5.0) g/dL IgG (700.0-1600.0) mg/dL 09/19/23 09/19/23 09/20/23 Range/Units 17:41 17:41 07:03 WBC 3.4 L (3.8-10.6) k/uL RBC 2.45 L (3.80-5.40) m/uL Hgb 7.6 L (11.4-16.0) gm/dL Hct 24.8 L (34.0-46.0) % MCV 101.2 H (80.0-100.0) fL MCHC 30.4 L (31.0-37.0) g/dL RDW 20.6 H (11.5-15.5) % Lymphocytes # 0.6 L (1.0-4.8) k/uL Lymphocytes # (Manual) (1.0-4.8) k/uL Metamyelocytes # (Man) (0) k/uL Myelocytes # (Manual) (0) k/uL APTT (22.0-30.0) sec Sodium (137-145) mmol/L Potassium (3.5-5.1) mmol/L Chloride (98-107) mmol/L Carbon Dioxide (22-30) mmol/L BUN (7-17) mg/dL Creatinine (0.52-1.04) mg/dL Calcium (8.4-10.2) mg/dL Ionized Calcium Kristyn 3.9 L (4.5-5.3) mg/dL Magnesium (1.6-2.3) mg/dL Total Protein (6.3-8.2) g/dL Total Protein (PEP) 4.3 L (6.2-8.2) g/dL Albumin (3.5-5.0) g/dL IgG 617.0 L (700.0-1600.0) mg/dL 09/20/23 09/20/23 Range/Units 07:03 07:03 WBC (3.8-10.6) k/uL RBC (3.80-5.40) m/uL Hgb (11.4-16.0) gm/dL Hct (34.0-46.0) % MCV (80.0-100.0) fL MCHC (31.0-37.0) g/dL RDW (11.5-15.5) % Lymphocytes # (1.0-4.8) k/uL Lymphocytes # (Manual) (1.0-4.8) k/uL Metamyelocytes # (Man) (0) k/uL Myelocytes # (Manual) (0) k/uL APTT 74.0 H (22.0-30.0) sec Sodium 134 L (137-145) mmol/L Potassium (3.5-5.1) mmol/L Chloride 111 H (98-107) mmol/L Carbon Dioxide 19 L (22-30) mmol/L BUN <2 L (7-17) mg/dL Creatinine 0.34 L (0.52-1.04) mg/dL Calcium 6.2 L* (8.4-10.2) mg/dL Ionized Calcium Kristyn (4.5-5.3) mg/dL Magnesium (1.6-2.3) mg/dL Total Protein (6.3-8.2) g/dL Total Protein (PEP) (6.2-8.2) g/dL Albumin (3.5-5.0) g/dL IgG (700.0-1600.0) mg/dL Microbiology - Last 24 Hours (Table) 09/18/23 13:40 Blood Culture - Preliminary Blood 09/18/23 11:00 Gram Stain - Preliminary Aspirate Body Fluid Culture - Preliminary Gram Neg Bacilli Assessment and Plan (1) SIRS (systemic inflammatory response syndrome) Current Visit: Yes Status: Acute Code(s): R65.10 - SIRS OF NON-INFECTIOUS ORIGIN W/O ACUTE ORGAN DYSFUNCTION SNOMED Code(s): 340323018 (2) Leukopenia Current Visit: Yes Status: Acute Code(s): D72.819 - DECREASED WHITE BLOOD CELL COUNT, UNSPECIFIED SNOMED Code(s): 66578399 (3) Discitis of lumbar region Current Visit: Yes Status: Acute Priority: High Code(s): M46.46 - DISCITIS, UNSPECIFIED, LUMBAR REGION SNOMED Code(s): 282997016 Plan: 1patient presented to hospital with abnormal electrolytes did have some nausea vomiting and abdominal pain CT abdominal pelvis has been suggestive of ileus patient did have leukopenia and a low-grade fever, dealing mostly with the ileus questionably mechanical keeping in mind significant leukopenia and low-grade fever we will need to cover for enteric gram-negative both aerobes and anaerobes 2-patient MRI of the lumbosacral spine suspicious for possible discitis/osteomyelitis discussed with the spine surgery recommending IR aspiration for biopsy has been completed cultures are currently growing gram- negative bacilli with ID sensitive pending 3-I will discontinue Rocephin start the patient on cefepime while waiting for the ID sensitivity on the gram-negative patient will need a PICC line for outpatient IV antibiotic therapy Dictation was produced using [employer] dictation software. please excuse any grammatical, word or spelling errors. Time with Patient: Less than 30
[2023-09-20 14:33] LABS: Ionized Calcium 3.9 mg/dL (4.5-5.3)
[2023-09-20 14:41] LABS: Magnesium 1.6 mg/dL (1.6-2.3)
--- NOTE | 2023-09-20 15:15 | P.PN ---
Subjective Progress Note Date: 09/20/23 63 years old female with past medical history of multiple medical problems as below including history of bipolar and schizophrenia, history of pulmonary embolism on Eliquis, patient was recently in the hospitalized in this facility about once days for acute Neutropenic sepsis,she was discharged to [facility] also she has been treated for bowel obstruction and she has been followed by surgery team with Dr. Maynard at that time. Patient states that she has history of chronic back pain and difficulty walking for the last 2 months also, she states it is in the lumbar 3 and lumbar 4 spine vertebrae Patient was sent from [facility] because of abnormal labs and low potassium and sodium, patient states that they checked it routinely. Patient is hemodynamically stable and afebrile Labs showed low sodium 128 low potassium 2.8 and low magnesium 1.1 She has chronic leukopenia and currently 3.7, chronic anemia currently 8.5 at baseline LFTs unremarkable EKG shows sinus rhythm at [address]-T changes 09/19/2023 --patient denies any fever or any chills, patient is breathing comfortably on room air, the patient denies chest pain shortness of breath and no significant cough, patient did have removal of the NG and she did have bowel movement and has been started on a diet with the patient has been tolerating Patient white count of 2.9 creatinine 0.36 -patient presented to hospital with abnormal electrolytes did have some nausea vomiting and abdominal pain CT abdominal pelvis has been suggestive of ileus patient did have leukopenia and a low-grade fever, dealing mostly with the ileus questionably mechanical keeping in mind significant leukopenia and low-grade fever we will need to cover for enteric gram-negative both aerobes and anaerobes -patient MRI of the lumbosacral spine suspicious for possible discitis/osteomyelitis discussed with the spine surgery recommending IR aspiration for biopsy which was completed this morning results will be followed -patient is covered with Rocephin and Flagyl discharge antibiotic on the basis of final culture 09/20/2023 She is seen and evaluated with family members at bedside; continues to report uncontrolled pain Vital signs are reviewed stable with temperature of 98.5, pulse 93, respirations 16 and blood pressure of 89/53 WBC 3.4, hemoglobin 7.6 and platelet count of 171, sodium 134, potassium 3.6, BUNs/creatinine 2/0.34 blood glucose of 87 CT-guided aspiration from lumbar spine reveals gram-negative bacilli, sensitivities pending; ID recommending to discontinue Rocephin and patient is placed on IV cefepime with recommendations for PICC line and IV antibiotic therapy as an outpatient Objective - Vital Signs Vital signs: Vital Signs Temp 98.5 F 09/20/23 07:46 Pulse 93 09/20/23 07:46 Resp 16 09/20/23 07:46 BP 89/53 09/20/23 07:46 Pulse Ox 98 09/20/23 07:46 FiO2 Intake & Output 09/19/23 09/20/23 09/20/23 18:59 06:59 18:59 Intake Total 301.862 171.78 118 Output Total 700 Balance 301.862 -528.22 118 Weight 57.606 kg Intake: Intake, IV Titration 65.862 171.78 Amount Heparin Sod,Pork in 0.45% 65.862 171.78 NaCl 25,000 unit In 0.45 % NaCl 1 250ml.bag @ 12 UNITS/KG/HR 6.913 mls/hr IV .Q24H [facility] Rx#: [id number] Oral 236 0 118 Output: Urine 700 Other: Voiding Method Diaper External Catheter External Catheter # Voids 1 # Bowel Movements 1 1 - Exam GENERAL: The patient is alert and oriented x3, ill appearing, elderly appearing, thin built HEENT: Pupils are round and equally reacting to light. EOMI. Normocephalic, atraumatic. CARDIOVASCULAR: S1 and S2 present. No murmurs, rubs, or gallops. PULMONARY: Chest is clear to auscultation, no wheezing or crackles. ABDOMEN: Soft, nontender, nondistended, normoactive bowel sounds. No palpable organomegaly. MUSCULOSKELETAL: No joint swelling or deformity. EXTREMITIES: No cyanosis, clubbing, or pedal edema. NEUROLOGICAL: Gross neurological examination did not reveal any focal deficits. Diffusely weak - Labs CBC & Chem 7: 09/20/23 07:03 09/20/23 07:03 Labs: Abnormal Lab Results - Last 24 Hours (Table) 09/19/23 09/19/23 09/19/23 Range/Units 17:41 17:41 17:41 WBC (3.8-10.6) k/uL RBC (3.80-5.40) m/uL Hgb (11.4-16.0) gm/dL Hct (34.0-46.0) % MCV (80.0-100.0) fL MCHC (31.0-37.0) g/dL RDW (11.5-15.5) % Lymphocytes # (1.0-4.8) k/uL APTT 50.2 H (22.0-30.0) sec Sodium (137-145) mmol/L Chloride (98-107) mmol/L Carbon Dioxide (22-30) mmol/L BUN (7-17) mg/dL Creatinine (0.52-1.04) mg/dL Calcium (8.4-10.2) mg/dL Ionized Calcium Kristyn 3.9 L (4.5-5.3) mg/dL Total Protein (PEP) 4.3 L (6.2-8.2) g/dL IgG 617.0 L (700.0-1600.0) mg/dL 09/20/23 09/20/23 09/20/23 Range/Units 07:03 07:03 07:03 WBC 3.4 L (3.8-10.6) k/uL RBC 2.45 L (3.80-5.40) m/uL Hgb 7.6 L (11.4-16.0) gm/dL Hct 24.8 L (34.0-46.0) % MCV 101.2 H (80.0-100.0) fL MCHC 30.4 L (31.0-37.0) g/dL RDW 20.6 H (11.5-15.5) % Lymphocytes # 0.6 L (1.0-4.8) k/uL APTT 74.0 H (22.0-30.0) sec Sodium 134 L (137-145) mmol/L Chloride 111 H (98-107) mmol/L Carbon Dioxide 19 L (22-30) mmol/L BUN <2 L (7-17) mg/dL Creatinine 0.34 L (0.52-1.04) mg/dL Calcium 6.2 L* (8.4-10.2) mg/dL Ionized Calcium Kristyn (4.5-5.3) mg/dL Total Protein (PEP) (6.2-8.2) g/dL IgG (700.0-1600.0) mg/dL Microbiology - Last 24 Hours (Table) 09/18/23 13:40 Blood Culture - Preliminary Blood 09/18/23 11:00 Gram Stain - Preliminary Aspirate Body Fluid Culture - Preliminary Gram Neg Bacilli Assessment and Plan Assessment: * Acute gastroenteritis * Shock secondary to hypovolemia * Bowel obstruction, resolved on repeated imaging, NG tube removed and started on clear liquids per surgery * Lytic lesions lumbar spine with pathological fracture, L3-L4 spinal stenosis, MRI with concerns of osteomyelitis and discitis in that area status post needle aspiration with interventional radiology on 09/18/2023 * History of neutropenic colitis, sigmoid colitis and pancytopenia * History of chronic systolic heart failure ejection fraction of 40 to 45% * Chronic atrial fibrillation on anticoagulation * History of pulmonary embolism on anticoagulation * Chronic back pain * Gait dysfunction, medical debility * GI prophylaxis * DVT prophylaxis * Full code Plan: * In regards to gastroenteritis continue patient on IV antibiotic with infectious disease following as well as general surgery * In regards to bowel obstruction, s/p NG tube placement, surgery team following and abdominal series are negative for obstruction, NG tube discontinued and patient is being started on clear liquid diet * Atrial fibrillation continue patient on amiodarone, Eliquis discontinued, started on IV heparin dose. Okay to resume IV heparin 4 hours after needle aspiration per interventional radiology * Interventional radiology following and patient is status post aspiration of the spine for deep tissue cultures with concerns of osteomyelitis and discitis in that area * In regards to low back pain CT reviewed, orthospine following and agreeable with aspiration with no immediate plans of surgical intervention * In regards to history of heart failure continue to monitor intake and output continue gentle hydration * Blood pressures have been extremely low and being started on midodrine and increased to 10 mg 3 times daily. Patient chronically has low blood pressure and does take a number of pain medications * Regards to chronic back pain, imaging of spine CT lumbar spine does show lytic lesions of lumbar spine, MRI lumbar spine suggestive of possible osteomyelitis and discitis * In regards to pulmonary embolism, Eliquis held and patient remains on heparin. * full code * Due to multiple complex medical issues, prognosis is guarded
[2023-09-20] MEDS: IMMUNE GLOBULIN (GAMMAGARD) 20 GM in EMPTY BAG 1 BAG IV ONE ×2 (18:35→18:37)
[2023-09-20] MEDS: IMMUNE GLOBULIN (GAMMAGARD) 5 GM in EMPTY BAG 1 BAG IV ONE ×2 (18:36→18:37)
--- NOTE | 2023-09-20 19:42 | P.PN ---
Subjective Patient seen and evaluated at bedside. Patient doing well, tolerating diet, having loose stools. c/o left lowe quadrant abdominal pain. no nausea or vomiting. Objective - Vital Signs Vital signs: Vital Signs Temp 98.5 F 09/20/23 07:46 Pulse 88 09/20/23 15:30 Resp 18 09/20/23 15:30 BP 99/62 09/20/23 15:30 Pulse Ox 98 09/20/23 15:30 FiO2 Intake & Output 09/20/23 09/20/23 09/21/23 06:59 18:59 06:59 Intake Total 171.78 340 Output Total 700 650 Balance -528.22 -310 Intake: Intake, IV Titration 171.78 Amount Heparin Sod,Pork in 0.45% 171.78 NaCl 25,000 unit In 0.45 % NaCl 1 250ml.bag @ 12 UNITS/KG/HR 6.913 mls/hr IV .Q24H [facility] Rx#: [id number] Oral 0 340 Output: Urine 700 650 Other: Voiding Method External Catheter External Catheter # Bowel Movements 2 - Exam gen: nad cv: rrr pul: non laobred breathing abd: soft, tender to palpation in left upper quadrant, no guarding or rebound tenderness - Labs CBC & Chem 7: 09/20/23 07:03 09/20/23 07:03 Labs: Abnormal Lab Results - Last 24 Hours (Table) 09/19/23 09/20/23 09/20/23 Range/Units 17:41 07:03 07:03 WBC 3.4 L (3.8-10.6) k/uL RBC 2.45 L (3.80-5.40) m/uL Hgb 7.6 L (11.4-16.0) gm/dL Hct 24.8 L (34.0-46.0) % MCV 101.2 H (80.0-100.0) fL MCHC 30.4 L (31.0-37.0) g/dL RDW 20.6 H (11.5-15.5) % Lymphocytes # 0.6 L (1.0-4.8) k/uL APTT (22.0-30.0) sec Sodium 134 L (137-145) mmol/L Chloride 111 H (98-107) mmol/L Carbon Dioxide 19 L (22-30) mmol/L BUN <2 L (7-17) mg/dL Creatinine 0.34 L (0.52-1.04) mg/dL Calcium 6.2 L* (8.4-10.2) mg/dL Ionized Calcium Kristyn (4.5-5.3) mg/dL Total Protein (PEP) 4.3 L (6.2-8.2) g/dL IgG 617.0 L (700.0-1600.0) mg/dL 09/20/23 09/20/23 Range/Units 07:03 14:01 WBC (3.8-10.6) k/uL RBC (3.80-5.40) m/uL Hgb (11.4-16.0) gm/dL Hct (34.0-46.0) % MCV (80.0-100.0) fL MCHC (31.0-37.0) g/dL RDW (11.5-15.5) % Lymphocytes # (1.0-4.8) k/uL APTT 74.0 H (22.0-30.0) sec Sodium (137-145) mmol/L Chloride (98-107) mmol/L Carbon Dioxide (22-30) mmol/L BUN (7-17) mg/dL Creatinine (0.52-1.04) mg/dL Calcium (8.4-10.2) mg/dL Ionized Calcium Kristyn 3.9 L (4.5-5.3) mg/dL Total Protein (PEP) (6.2-8.2) g/dL IgG (700.0-1600.0) mg/dL Microbiology - Last 24 Hours (Table) 09/18/23 13:40 Blood Culture - Preliminary Blood 09/18/23 11:00 Gram Stain - Preliminary Aspirate Body Fluid Culture - Preliminary Gram Neg Bacilli Assessment and Plan Assessment: 63 yo female s/ left lower quadrant abdominal pain previous xrays suggest ileus if patient continues to have abdominal pain we will order ctap to assess for diverticulitis no sugical intervention at this time. continue diet for now Time with Patient: Greater than 30
[2023-09-20 23:32] LABS: Immunoglobulin M <35.0 mg/dL (40.0-280.0)
[2023-09-21 10:21] LABS: Anisocytosis Moderate; Basophils % (A) 0 %; Eosinophils # (A) 0.1 k/uL (0-0.7); Eosinophils % (A) 2 %; HCT 27.6 % (34.0-46.0); HGB 7.7 gm/dL (11.4-16.0); Hypochromasia Marked; Lymphocytes # (A) 0.4 k/uL (1.0-4.8); Lymphocytes % (A) 7 %; MCH 30.8 pg (25.0-35.0); Macrocytosis Marked; Mean Platelet Volume 7.9; Monocytes # (A) 0.1 k/uL (0-1.0); Monocytes % (A) 2 %; Neutrophils # (A) 4.1 k/uL (1.3-7.7); Neutrophils % (A) 87 %; Platelet Count 173 k/uL (150-450); Poikilocytosis Slight; RBC 2.52 m/uL (3.80-5.40); RDW 21.1 % (11.5-15.5); WBC 4.7 k/uL (3.8-10.6)
[2023-09-21 10:30] LABS: MCV 109.8 fL (80.0-100.0)
[2023-09-21 10:34] LABS: African American GFR (CKD) >90 (>60 ml/min/1.73 sqM); Anion Gap 3 mmol/L; Blood Urea Nitrogen <2 mg/dL (7-17); Carbon Dioxide 17 mmol/L (22-30); Chloride 112 mmol/L (98-107); Glucose 94 mg/dL (74-99); Non-African American GFR(CKD) >90 (>60 ml/min/1.73 sqM); Potassium 3.5 mmol/L (3.5-5.1); Sodium 132 mmol/L (137-145)
--- NOTE | 2023-09-21 11:15 | P.PN ---
Subjective Progress Note Date: 09/21/23 the patient has complaints of left lower quadrant pain. She states is slightly worse compared to yesterday. On exam vital signs appear stable. Abdomen soft there is mild left lower quadrant tenderness. Ileus versus diverticula is. Patient will have a computed tomography scan of the abdomen performed. Objective - Vital Signs Vital signs: Vital Signs Temp 98.2 F 09/21/23 08:00 Pulse 101 H 09/21/23 08:00 Resp 18 09/21/23 08:00 BP 96/60 09/21/23 08:00 Pulse Ox 94 L 09/21/23 08:00 FiO2 Intake & Output 09/20/23 09/21/23 09/21/23 18:59 06:59 18:59 Intake Total 340 480.042 Output Total 650 1000 Balance -310 -519.958 Intake: Intake, IV Titration 240.042 Amount Heparin Sod,Pork in 0.45% 240.042 NaCl 25,000 unit In 0.45 % NaCl 1 250ml.bag @ 12 UNITS/KG/HR 6.913 mls/hr IV .Q24H [facility] Rx#: [id number] Oral 340 240 Output: Urine 650 1000 Other: Voiding Method External Catheter External Catheter External Catheter # Bowel Movements 2 - Labs CBC & Chem 7: 09/21/23 09:51 09/21/23 09:51 Labs: Abnormal Lab Results - Last 24 Hours (Table) 09/20/23 09/20/23 09/21/23 Range/Units 14:01 14:01 09:51 RBC 2.52 L (3.80-5.40) m/uL Hgb 7.7 L (11.4-16.0) gm/dL Hct 27.6 L (34.0-46.0) % MCV 109.8 H D (80.0-100.0) fL MCHC 28.0 L (31.0-37.0) g/dL RDW 21.1 H (11.5-15.5) % Lymphocytes # 0.4 L (1.0-4.8) k/uL Macrocytosis Marked A Sodium (137-145) mmol/L Chloride (98-107) mmol/L Carbon Dioxide (22-30) mmol/L BUN (7-17) mg/dL Creatinine (0.52-1.04) mg/dL Calcium (8.4-10.2) mg/dL Ionized Calcium Kristyn 3.9 L (4.5-5.3) mg/dL IgA 637.0 H (60.0-350.0) mg/dL IgM <35.0 L (40.0-280.0) mg/dL 09/21/23 Range/Units 09:51 RBC (3.80-5.40) m/uL Hgb (11.4-16.0) gm/dL Hct (34.0-46.0) % MCV (80.0-100.0) fL MCHC (31.0-37.0) g/dL RDW (11.5-15.5) % Lymphocytes # (1.0-4.8) k/uL Macrocytosis Sodium 132 L (137-145) mmol/L Chloride 112 H (98-107) mmol/L Carbon Dioxide 17 L (22-30) mmol/L BUN <2 L (7-17) mg/dL Creatinine 0.36 L (0.52-1.04) mg/dL Calcium 6.0 L* (8.4-10.2) mg/dL Ionized Calcium Kristyn (4.5-5.3) mg/dL IgA (60.0-350.0) mg/dL IgM (40.0-280.0) mg/dL Microbiology - Last 24 Hours (Table) 09/18/23 11:00 Anaerobic Culture - Preliminary Aspirate 09/18/23 11:00 Gram Stain - Final Aspirate Body Fluid Culture - Final Enterobacter cloacae 09/18/23 13:40 Blood Culture - Preliminary Blood
[2023-09-21] MEDS: IOPAMIDOL CONTRAST (ORAL USE) VIAL PO PRN (12:10)
[2023-09-21] MEDS: CALCIUM GLUCONATE IN NACL 2 GM in SALINE 1 100ML.BAG IVPB ONE (13:06)
--- NOTE | 2023-09-21 14:45 | CT ---
EXAMINATION TYPE: CT abdomen pelvis w con DATE OF EXAM: 09/21/2023 COMPARISON: 09/12/2023 HISTORY: LLQ abdominal pain CT DLP: 1089.7 mGycm Automated exposure control for dose reduction was used. TECHNIQUE: Helical acquisition of images was performed from the lung bases through the pelvis. CONTRAST: Performed with Oral Contrast and with IV Contrast, patient injected with 100 ml mL of Isovue 300. Findings: There has been interval development of small bilateral pleural effusions, left greater than right. Th ere is consolidated density adjacent to the left pleural effusion in the left lower lobe consistent w ith pneumonic infiltrate or atelectasis. There is a ill-defined groundglass density in the right midd le lobe which likely represents an acute pneumonic process/pneumonia. There is a small to moderate pericardial effusion. There are surgical absence of the gallbladder. There is no focal mass or organomegaly involving the liver, pancreas, spleen or adrenal glands. There is no solid renal mass or hydronephrosis and there is homogeneous contrast enhancement of the r enal parenchyma. The caliber the abdominal aorta is normal is no retroperitoneal adenopathy or hemorr chari. There is wall thickening and mild pericolic inflammation of a 11-12 cm segment of distal colon and pr oximal sigmoid colon consistent with acute diverticulitis. There is diffusely dilated small bowel and colon proximal to this segment but distal to this segment, there is contrast within the rectum. The findings are consistent with a partial distal colonic obstruction secondary to diverticulitis. There is no free intraperitoneal air or fluid. No pelvic mass, free fluid, abscess or adenopathy. There is been interval development of marked abnormal increased density in the soft tissues of the le ft lateral abdominal wall and proximal pelvis. Similar changes are seen within the right buttock soft tissues. The findings are consistent with edema of the soft tissues. The possibility of infectious p rocess or hematoma in the left lateral abdomen soft tissues should be considered. IMPRESSION: 1. Interval development of small bilateral pleural effusions and bilateral lower lobe infiltrates as described above. 2. Stable moderate pericardial effusion. 3. Partial bowel obstruction involving the small bowel and colon to the level of the distal descendin g colon/proximal sigmoid colon secondary to inflammatory changes. The findings are consistent with ac hakan diverticulitis. 4. Interval development of marked soft tissue edema in the lateral abdominal wall and right buttock. The density of the soft tissues of the lateral abdominal wall raise the question of hematoma or acute infectious process. There is no discrete abscess.
--- NOTE | 2023-09-21 17:21 | P.PN ---
Subjective Progress Note Date: 09/21/23 63 years old female with past medical history of multiple medical problems as below including history of bipolar and schizophrenia, history of pulmonary embolism on Eliquis, patient was recently in the hospitalized in this facility about once days for acute Neutropenic sepsis,she was discharged to [facility] also she has been treated for bowel obstruction and she has been followed by surgery team with Dr. Maynard at that time. Patient states that she has history of chronic back pain and difficulty walking for the last 2 months also, she states it is in the lumbar 3 and lumbar 4 spine vertebrae Patient was sent from [facility] because of abnormal labs and low potassium and sodium, patient states that they checked it routinely. Patient is hemodynamically stable and afebrile Labs showed low sodium 128 low potassium 2.8 and low magnesium 1.1 She has chronic leukopenia and currently 3.7, chronic anemia currently 8.5 at baseline LFTs unremarkable EKG shows sinus rhythm at [address]-T changes 09/19/2023 --patient denies any fever or any chills, patient is breathing comfortably on room air, the patient denies chest pain shortness of breath and no significant cough, patient did have removal of the NG and she did have bowel movement and has been started on a diet with the patient has been tolerating Patient white count of 2.9 creatinine 0.36 -patient presented to hospital with abnormal electrolytes did have some nausea vomiting and abdominal pain CT abdominal pelvis has been suggestive of ileus patient did have leukopenia and a low-grade fever, dealing mostly with the ileus questionably mechanical keeping in mind significant leukopenia and low-grade fever we will need to cover for enteric gram-negative both aerobes and anaerobes -patient MRI of the lumbosacral spine suspicious for possible discitis/osteomyelitis discussed with the spine surgery recommending IR aspiration for biopsy which was completed this morning results will be followed -patient is covered with Rocephin and Flagyl discharge antibiotic on the basis of final culture 09/20/2023 She is seen and evaluated with family members at bedside; continues to report uncontrolled pain Vital signs are reviewed stable with temperature of 98.5, pulse 93, respirations 16 and blood pressure of 89/53 WBC 3.4, hemoglobin 7.6 and platelet count of 171, sodium 134, potassium 3.6, BUNs/creatinine 2/0.34 blood glucose of 87 CT-guided aspiration from lumbar spine reveals gram-negative bacilli, sensitivities pending; ID recommending to discontinue Rocephin and patient is placed on IV cefepime with recommendations for PICC line and IV antibiotic therapy as an outpatient 09/21/2023 Patient is seen and evaluated in room at bedside; continues to report left lower quadrant pain which is slightly worse compared to yesterday Vital signs are stable with temperature of 98.2, pulse 101, respiration 18 and blood pressure of 96/60 -General surgery on board and recommending to proceed with CT of the abdomen to rule out intra-abdominal pathology -CT of the abdomen reveals interval development of small bilateral pulm effusions and bilateral lower lobe infiltrates; stable moderate pericardial effusion; partial bowel obstruction involving small bowel and colon to the level of the distal descending colon/proximal sigmoid colon secondary to inflammatory changes, consistent with acute diverticulitis; interval of marked soft tissue edema and lateral abdominal wall and right buttock area no discrete abscess seen. -Patient remains on IV antibiotics in form of cefepime and Flagyl for discitis/osteomyelitis; antibiotics will give coverage for developing acute diverticulitis -Surgery team has been paged for partial SBO Objective - Vital Signs Vital signs: Vital Signs Temp 98.2 F 09/21/23 08:00 Pulse 101 H 09/21/23 08:00 Resp 18 09/21/23 08:00 BP 96/60 09/21/23 08:00 Pulse Ox 94 L 09/21/23 08:00 FiO2 Intake & Output 09/20/23 09/21/23 09/21/23 18:59 06:59 18:59 Intake Total 340 480.042 Output Total 650 1000 Balance -310 -519.958 Intake: Intake, IV Titration 240.042 Amount Heparin Sod,Pork in 0.45% 240.042 NaCl 25,000 unit In 0.45 % NaCl 1 250ml.bag @ 12 UNITS/KG/HR 6.913 mls/hr IV .Q24H [facility] Rx#: [id number] Oral 340 240 Output: Urine 650 1000 Other: Voiding Method External Catheter External Catheter External Catheter # Bowel Movements 2 - Exam GENERAL: The patient is alert and oriented x3, ill appearing, elderly appearing, thin built HEENT: Pupils are round and equally reacting to light. EOMI. Normocephalic, atraumatic. CARDIOVASCULAR: S1 and S2 present. No murmurs, rubs, or gallops. PULMONARY: Chest is clear to auscultation, no wheezing or crackles. ABDOMEN: Soft, nontender, nondistended, normoactive bowel sounds. No palpable organomegaly. MUSCULOSKELETAL: No joint swelling or deformity. EXTREMITIES: No cyanosis, clubbing, or pedal edema. NEUROLOGICAL: Gross neurological examination did not reveal any focal deficits. Diffusely weak - Labs CBC & Chem 7: 09/21/23 09:51 09/21/23 09:51 Labs: Abnormal Lab Results - Last 24 Hours (Table) 09/20/23 09/20/23 09/21/23 Range/Units 14:01 14:01 09:51 RBC 2.52 L (3.80-5.40) m/uL Hgb 7.7 L (11.4-16.0) gm/dL Hct 27.6 L (34.0-46.0) % MCV 109.8 H D (80.0-100.0) fL MCHC 28.0 L (31.0-37.0) g/dL RDW 21.1 H (11.5-15.5) % Lymphocytes # 0.4 L (1.0-4.8) k/uL Macrocytosis Marked A Sodium (137-145) mmol/L Chloride (98-107) mmol/L Carbon Dioxide (22-30) mmol/L BUN (7-17) mg/dL Creatinine (0.52-1.04) mg/dL Calcium (8.4-10.2) mg/dL Ionized Calcium Kristyn 3.9 L (4.5-5.3) mg/dL IgA 637.0 H (60.0-350.0) mg/dL IgM <35.0 L (40.0-280.0) mg/dL 09/21/23 Range/Units 09:51 RBC (3.80-5.40) m/uL Hgb (11.4-16.0) gm/dL Hct (34.0-46.0) % MCV (80.0-100.0) fL MCHC (31.0-37.0) g/dL RDW (11.5-15.5) % Lymphocytes # (1.0-4.8) k/uL Macrocytosis Sodium 132 L (137-145) mmol/L Chloride 112 H (98-107) mmol/L Carbon Dioxide 17 L (22-30) mmol/L BUN <2 L (7-17) mg/dL Creatinine 0.36 L (0.52-1.04) mg/dL Calcium 6.0 L* (8.4-10.2) mg/dL Ionized Calcium Kristyn (4.5-5.3) mg/dL IgA (60.0-350.0) mg/dL IgM (40.0-280.0) mg/dL Microbiology - Last 24 Hours (Table) 09/18/23 11:00 Anaerobic Culture - Preliminary Aspirate 09/18/23 11:00 Gram Stain - Final Aspirate Body Fluid Culture - Final Enterobacter cloacae 09/18/23 13:40 Blood Culture - Preliminary Blood Assessment and Plan Assessment: * Acute gastroenteritis * Shock secondary to hypovolemia * Bowel obstruction, resolved on repeated imaging, NG tube removed and started on clear liquids per surgery * Lytic lesions lumbar spine with pathological fracture, L3-L4 spinal stenosis, MRI with concerns of osteomyelitis and discitis in that area status post needle aspiration with interventional radiology on 09/18/2023 * History of neutropenic colitis, sigmoid colitis and pancytopenia * History of chronic systolic heart failure ejection fraction of 40 to 45% * Chronic atrial fibrillation on anticoagulation * History of pulmonary embolism on anticoagulation * Chronic back pain * Gait dysfunction, medical debility * GI prophylaxis * DVT prophylaxis * Full code Plan: * In regards to gastroenteritis continue patient on IV antibiotic with infectious disease following as well as general surgery * In regards to bowel obstruction, s/p NG tube placement, surgery team following and abdominal series are negative for obstruction, NG tube discontinued and patient is being started on clear liquid diet * Atrial fibrillation continue patient on amiodarone, Eliquis discontinued, started on IV heparin dose. Okay to resume IV heparin 4 hours after needle aspiration per interventional radiology * Interventional radiology following and patient is status post aspiration of the spine for deep tissue cultures with concerns of osteomyelitis and discitis in that area * In regards to low back pain CT reviewed, orthospine following and agreeable with aspiration with no immediate plans of surgical intervention * In regards to history of heart failure continue to monitor intake and output continue gentle hydration * Blood pressures have been extremely low and being started on midodrine and increased to 10 mg 3 times daily. Patient chronically has low blood pressure and does take a number of pain medications * Regards to chronic back pain, imaging of spine CT lumbar spine does show lytic lesions of lumbar spine, MRI lumbar spine suggestive of possible osteomyelitis and discitis * In regards to pulmonary embolism, Eliquis held and patient remains on heparin. * full code * Due to multiple complex medical issues, prognosis is guarded
--- NOTE | 2023-09-22 09:48 | P.PN ---
Subjective 63 years old female with past medical history of multiple medical problems as below including history of bipolar and schizophrenia, history of pulmonary embolism on Eliquis, patient was recently in the hospitalized in this facility about once days for acute Neutropenic sepsis,she was discharged to [facility] also she has been treated for bowel obstruction and she has been followed by surgery team with Dr. Maynard at that time. Patient states that she has history of chronic back pain and difficulty walking for the last 2 months also, she states it is in the lumbar 3 and lumbar 4 spine vertebrae Patient was sent from [facility] because of abnormal labs and low potassium and sodium, patient states that they checked it routinely. Patient is hemodynamically stable and afebrile Labs showed low sodium 128 low potassium 2.8 and low magnesium 1.1 She has chronic leukopenia and currently 3.7, chronic anemia currently 8.5 at baseline LFTs unremarkable EKG shows sinus rhythm at [address]-T changes 09/19/2023 --patient denies any fever or any chills, patient is breathing comfortably on room air, the patient denies chest pain shortness of breath and no significant cough, patient did have removal of the NG and she did have bowel movement and has been started on a diet with the patient has been tolerating Patient white count of 2.9 creatinine 0.36 -patient presented to hospital with abnormal electrolytes did have some nausea vomiting and abdominal pain CT abdominal pelvis has been suggestive of ileus patient did have leukopenia and a low-grade fever, dealing mostly with the ileus questionably mechanical keeping in mind significant leukopenia and low-grade fever we will need to cover for enteric gram-negative both aerobes and anaerobes -patient MRI of the lumbosacral spine suspicious for possible discitis/osteomyelitis discussed with the spine surgery recommending IR aspiration for biopsy which was completed this morning results will be followed -patient is covered with Rocephin and Flagyl discharge antibiotic on the basis of final culture 09/20/2023 She is seen and evaluated with family members at bedside; continues to report uncontrolled pain Vital signs are reviewed stable with temperature of 98.5, pulse 93, respirations 16 and blood pressure of 89/53 WBC 3.4, hemoglobin 7.6 and platelet count of 171, sodium 134, potassium 3.6, BUNs/creatinine 2/0.34 blood glucose of 87 CT-guided aspiration from lumbar spine reveals gram-negative bacilli, sensitivities pending; ID recommending to discontinue Rocephin and patient is placed on IV cefepime with recommendations for PICC line and IV antibiotic therapy as an outpatient 09/21/2023 Patient is seen and evaluated in room at bedside; continues to report left lower quadrant pain which is slightly worse compared to yesterday Vital signs are stable with temperature of 98.2, pulse 101, respiration 18 and blood pressure of 96/60 -General surgery on board and recommending to proceed with CT of the abdomen to rule out intra-abdominal pathology -CT of the abdomen reveals interval development of small bilateral pulm effusions and bilateral lower lobe infiltrates; stable moderate pericardial effusion; partial bowel obstruction involving small bowel and colon to the level of the distal descending colon/proximal sigmoid colon secondary to inflammatory changes, consistent with acute diverticulitis; interval of marked soft tissue edema and lateral abdominal wall and right buttock area no discrete abscess seen. -Patient remains on IV antibiotics in form of cefepime and Flagyl for discitis/osteomyelitis; antibiotics will give coverage for developing acute diverticulitis -Surgery team has been paged for partial SBO 09/22/2023 Objective - Vital Signs Vital signs: Vital Signs Temp 98.1 F 09/22/23 02:00 Pulse 92 09/22/23 02:00 Resp 19 09/22/23 02:00 BP 95/56 09/22/23 02:00 Pulse Ox 95 09/22/23 02:00 FiO2 Intake & Output 09/21/23 09/22/23 09/22/23 18:59 06:59 18:59 Intake Total 243.326 Output Total 500 750 Balance -500 -506.674 Intake: Intake, IV Titration 243.326 Amount Heparin Sod,Pork in 0.45% 243.326 NaCl 25,000 unit In 0.45 % NaCl 1 250ml.bag @ 12 UNITS/KG/HR 6.913 mls/hr IV .Q24H [facility] Rx#: [id number] Output: Urine 500 750 Other: Voiding Method External Catheter External Catheter # Bowel Movements 1 - Labs CBC & Chem 7: 09/21/23 09:51 09/21/23 09:51 Labs: Abnormal Lab Results - Last 24 Hours (Table) 09/21/23 09/21/23 Range/Units 09:51 09:51 RBC 2.52 L (3.80-5.40) m/uL Hgb 7.7 L (11.4-16.0) gm/dL Hct 27.6 L (34.0-46.0) % MCV 109.8 H D (80.0-100.0) fL MCHC 28.0 L (31.0-37.0) g/dL RDW 21.1 H (11.5-15.5) % Lymphocytes # 0.4 L (1.0-4.8) k/uL Macrocytosis Marked A Sodium 132 L (137-145) mmol/L Chloride 112 H (98-107) mmol/L Carbon Dioxide 17 L (22-30) mmol/L BUN <2 L (7-17) mg/dL Creatinine 0.36 L (0.52-1.04) mg/dL Calcium 6.0 L* (8.4-10.2) mg/dL Microbiology - Last 24 Hours (Table) 09/18/23 13:40 Blood Culture - Preliminary Blood Assessment and Plan Assessment: possible Acute gastroenteritis versus or exacerbated by bowel preparation for colonoscopy Suprapubic pain tenderness increased frequency of urination. Rule out UTI chronic back pain and difficulty walking for the last 2 months Atrial fibrillation on Eliquis pulmonary embolism, currently on Eliquis at home Patient history of neutropenic colitis and sigmoid colitis with pancytopenia and bacteremia secondary to Enterobacter cloacae. Schizophrenia, bipolar disorder, currently not an active issue History of bowel resection and cholecystectomy Acute gastroenteritis, acute diverticulitis with partial small bowel obstruction Shock secondary to hypovolemia, improved, still have borderline hypotension Bowel obstruction, partial and acute Lytic lesions lumbar spine with pathological fracture, L3-L4 spinal stenosis, MRI with concerns of osteomyelitis and discitis in that area status post needle aspiration with interventional radiology on 09/18/2023, L3 compression fraction of superior endplate Multiple myeloma with hypogammaglobulinemia, s/p IgG transfusion Fluid overload with bilateral pleural effusion left more than right and moderate pericardial effusion and leg edema CT of the abdomen showing right abdominal wall edema, cellulitis versus hematoma, however on inspection no discoloration, no significant tenderness pancytopenia History of chronic systolic heart failure ejection fraction of 40 to 45% Chronic atrial fibrillation on anticoagulation History of pulmonary embolism on anticoagulation Chronic back pain Gait dysfunction, medical debility History of cholecystectomy as per patient Plan: Continue with antibiotic, currently on IV cefepime and Flagyl Eliquis on hold and currently on heparin drip Continue with normal saline 75 mL/h for borderline hypotension Start Lasix 40 mg once daily for fluid overload General surgery following for bowel obstruction and diverticulitis Continue with IV Protonix twice daily ID team and hematology/oncology team on the case Labs and medication were reviewed.. Continue same treatment. Continue with sy mptomatic treatment. Resume home medication. Monitor labs and vitals. DVT and GI prophylaxis. Further recommendations as per clinical course of the patient DVT prophylaxis: heparin GI Prophylaxis: Ppi PT/OT: Will benefit from ECF, [facility] Prognosis is guarded
[2023-09-22 10:30] LABS: Anisocytosis Moderate; Basophils % (A) 0 %; Eosinophils # (A) 0.1 k/uL (0-0.7); Eosinophils % (A) 2 %; HCT 24.6 % (34.0-46.0); HGB 7.8 gm/dL (11.4-16.0); Hypochromasia Moderate; Lymphocytes # (A) 0.5 k/uL (1.0-4.8); Lymphocytes % (A) 8 %; MCH 32.1 pg (25.0-35.0); MCHC 31.9 g/dL (31.0-37.0); Macrocytosis Moderate; Mean Platelet Volume 9.8; Monocytes # (A) 0.1 k/uL (0-1.0); Monocytes % (A) 2 %; Neutrophils # (A) 4.9 k/uL (1.3-7.7); Neutrophils % (A) 86 %; Platelet Count 137 k/uL (150-450); Poikilocytosis Moderate; RBC 2.45 m/uL (3.80-5.40); RDW 21.4 % (11.5-15.5); WBC 5.6 k/uL (3.8-10.6)
[2023-09-22 10:32] LABS: MCV 100.5 fL (80.0-100.0)
[2023-09-22 10:59] LABS: African American GFR (CKD) >90 (>60 ml/min/1.73 sqM); Anion Gap 4 mmol/L; Blood Urea Nitrogen <2 mg/dL (7-17); Carbon Dioxide 15 mmol/L (22-30); Chloride 115 mmol/L (98-107); Glucose 83 mg/dL (74-99); Non-African American GFR(CKD) >90 (>60 ml/min/1.73 sqM); Potassium 3.6 mmol/L (3.5-5.1); Sodium 134 mmol/L (137-145)
[2023-09-22 11:06] LABS: Calcium 6.3 mg/dL (8.4-10.2)
[2023-09-22] MEDS: FUROSEMIDE 10 MG/ML 4 ML VIAL IV SCH (12:41)
[2023-09-22 16:08] LABS: Free Kappa Lt Chain Qnt, Serum 7.2 mg/dL (0.33-1.94); Free Lambda Lt Chain Qnt, Seru 0.75 mg/dL (0.57-2.63)
[2023-09-22] MEDS: CALCIUM GLUCONATE IN NACL 1 GM in SALINE 1 100ML.BAG IVPB ONE (17:20)
--- NOTE | 2023-09-22 20:47 | P.PN ---
Subjective Progress Note Date: 09/22/23 CHIEF COMPLAINT: Bowel obstruction HISTORY OF PRESENT ILLNESS: The patient is a 63-year-old female presents with bowel obstruction. Several days prior, patient was passing flatus and having bowel movements. She was tolerating diet. Patient had repeat CT scan demonstrating partial obstruction of the colon. Patient has history of recurrent symptoms. She was recently diagnosed with discitis with CT-guided aspiration. ROS: No reports of nausea and vomiting. No fevers or chills. No new chest pain. No productive sputum PHYSICAL EXAM: VITAL SIGNS: Reviewed CONSTITUTIONAL: Well developed and in no acute distress. EYES: Conjuctivae without sclera icterus. Extraocular movements grossly intact. HEAD, EARS, NOSE, THROAT: Moist buccal mucosa. Head is atraumatic, normocephalic. Hears conversational speech. No nasal drainage. RESPIRATORY: Non-labored respirations and equal bilateral excursions. CARDIOVASCULAR: Palpable 2+ radial pulses. ABDOMEN: No diffuse peritonitis. MUSCULOSKELETAL: No gross deformity of the lower extremities noted. No clubbing. No cyanosis. SKIN: Good skin turgor. Well perfused. NEUROLOGIC: Cranial nerves II through XII grossly intact. No focal or lateral izing signs. PSYCH: Appropriate affect. Alert and oriented to person, place and time. CLINICAL LABS: Reviewed. WBC normal. STUDIES: CT of the abdomen pelvis independently reviewed demonstrates dilated small and large bowel. Focal thickening of the descending colon. Also presence of a enlarged lymph node of the right groin. This is my independent interpretation. Prior CT scan imaging also reviewed demonstrate consistent inflammation of the descending colon on prior imaging from July 2023. Reports: Colonoscopy from May 2022 demonstrates poor prep. Hyperplastic polyp found. ECHO: July 2023 demonstrates ejection fraction 40 to 45% with depressed ejection fraction ASSESSMENT: 1. Recurrent bowel obstruction 2. History of breast cancer 3. Discitis. PLAN: 1. Patient has recurrent bowel obstructions for which options of exploratory laparotomy and ostomy creation were described. 2. Nonoperative management has been attempted prior with recurrence. 3. May benefit from recurrent colonoscopy to identify inflammation of the descending colon and sigmoid colon 4. Antibiotic management for diverticulitis/acute colitis in the interim Objective - Vital Signs Vital signs: Vital Signs Temp 98.2 F 09/22/23 08:00 Pulse 98 09/22/23 16:00 Resp 18 09/22/23 16:00 BP 96/60 09/22/23 16:00 Pulse Ox 98 09/22/23 16:00 FiO2 Intake & Output 09/22/23 09/22/23 09/23/23 06:59 18:59 06:59 Intake Total 243.326 593.886 Output Total 750 3150 Balance -506.674 -2556.114 Weight 57.606 kg Intake: Intake, IV Titration 243.326 113.886 Amount Heparin Sod,Pork in 0.45% 243.326 113.886 NaCl 25,000 unit In 0.45 % NaCl 1 250ml.bag @ 12 UNITS/KG/HR 6.913 mls/hr IV .Q24H [facility] Rx#: [id number] Oral 480 Output: Urine 750 3150 Other: Voiding Method External Catheter External Catheter # Voids 1 - Labs CBC & Chem 7: 09/22/23 09:50 09/22/23 09:50 Labs: Abnormal Lab Results - Last 24 Hours (Table) 09/19/23 09/22/23 09/22/23 Range/Units 17:41 09:50 09:50 RBC 2.45 L (3.80-5.40) m/uL Hgb 7.8 L (11.4-16.0) gm/dL Hct 24.6 L (34.0-46.0) % MCV 100.5 H D (80.0-100.0) fL RDW 21.4 H (11.5-15.5) % Plt Count 137 L (150-450) k/uL Lymphocytes # 0.5 L (1.0-4.8) k/uL APTT (22.0-30.0) sec Sodium 134 L (137-145) mmol/L Chloride 115 H (98-107) mmol/L Carbon Dioxide 15 L (22-30) mmol/L BUN <2 L (7-17) mg/dL Creatinine 0.35 L (0.52-1.04) mg/dL Calcium 6.3 L* (8.4-10.2) mg/dL [place] LC, Quant 7.20 H (0.33-1.94) mg/dL 09/22/23 Range/Units 09:50 RBC (3.80-5.40) m/uL Hgb (11.4-16.0) gm/dL Hct (34.0-46.0) % MCV (80.0-100.0) fL RDW (11.5-15.5) % Plt Count (150-450) k/uL Lymphocytes # (1.0-4.8) k/uL APTT 150.1 H* (22.0-30.0) sec Sodium (137-145) mmol/L Chloride (98-107) mmol/L Carbon Dioxide (22-30) mmol/L BUN (7-17) mg/dL Creatinine (0.52-1.04) mg/dL Calcium (8.4-10.2) mg/dL [place] LC, Quant (0.33-1.94) mg/dL Microbiology - Last 24 Hours (Table) 09/18/23 13:40 Blood Culture - Preliminary Blood
[2023-09-23] MEDS: LIDOCAINE 1% INJ 10MG/ML (20 ML MDV) SQ ONE (07:32)
--- NOTE | 2023-09-23 07:38 | P.PCN ---
Date of Procedure: 09/23/23 Preoperative Diagnosis: Lumbosacral osteomyelitis, need for rn long term care IV antibiotics Postoperative Diagnosis: same Procedure(s) Performed: Left upper extremity basilic vein PICC line placement under ultrasound and fluoroscopic guidance Anesthesia: local Surgeon: Quinton Carl Estimated Blood Loss (ml): 5 Pathology: none sent Condition: stable Disposition: floor Description of Procedure: After written and informed consent was obtained the patient and all risks, benefits and competitions were described the patient was brought to the [facility] and laid in a supine position with his left arm outstretched on an armboard. The area of the left arm was prepped and draped in usual sterile fashion. Timeout was performed in normal fashion. Utilizing ultrasound the basilic vein was visualized and shown to be compressible without any visible thrombus. Under ultrasound guidance the basilic vein was then cannulated with a micropuncture needle and wire was placed under direct visualization of fluoroscopy. Introducer sheath was then placed. The catheter was measured and cut to the appropriate length which was 44 cm. The catheter was then guided through the breakaway sheath and the sheath was removed with good positioning was visualized under fluoroscopy. The catheter was pulled and flushed easily. It was then secured in place in normal fashion. Patient tolerated the procedure well was sent back to his room for recovery.
[2023-09-23] MEDS: LACTATED RINGERS 1,000 ML IV SCH (07:59)
[2023-09-23] MEDS: SODIUM CHLORIDE 0.9% 500 ML 500 ML IV ONE (07:59)
[2023-09-23 12:44] LABS: African American GFR (CKD) >90 (>60 ml/min/1.73 sqM); Anion Gap 6 mmol/L; Blood Urea Nitrogen 4 mg/dL (7-17); Carbon Dioxide 16 mmol/L (22-30); Chloride 110 mmol/L (98-107); Glucose 97 mg/dL (74-99); Non-African American GFR(CKD) >90 (>60 ml/min/1.73 sqM); Sodium 132 mmol/L (137-145)
[2023-09-23 12:53] LABS: Calcium 6.2 mg/dL (8.4-10.2)
--- NOTE | 2023-09-23 13:13 | IR ---
EXAMINATION TYPE: IR cvc insert >=5 years Intraoperative/procedural fluoroscopic services were provid ed. CLINICAL INDICATION:Female, 63 years old with history of SINGLE LUMEN FOR ABX; , [facility] Total fluoroscopy time is 0.2 min. DAP: 32.1 uGym2 Please see the operative/procedural note for further details.
--- NOTE | 2023-09-23 15:21 | P.PN ---
Subjective Progress Note Date: 09/23/23 CHIEF COMPLAINT: Abdominal pain HISTORY OF PRESENT ILLNESS: The patient is a 63-year-old female presents with bowel obstruction. Patient had repeat CT scan demonstrating partial obstruction of the colon. Patient reports having loose stools. She did have some nausea earlier no vomiting. She does complain of some mild left lower quadrant pain. Patient has been hypotensive and mildly tachycardic. She received a fluid bolus. Sodium was 132 potassium 3.0 creatinine 0.37 C. difficile is negative PHYSICAL EXAM: VITAL SIGNS: Reviewed GENERAL: no acute distress. Head is atraumatic, normocephalic. Hears conversational speech. No nasal drainage. NECK: Supple without lymphadenopathy. CHEST: Non-labored respirations and equal bilateral excursions. CARDIOVASCULAR: Palpable 2+ radial pulses. ABDOMEN: Soft. mildly distended. LLQ tenderness MUSCULOSKELETAL: No clubbing or cyanosis. NEUROLOGIC: No focal or lateralizing signs. Cranial nerves II through XII grossly intact. PSYCH: Appropriate affect. Alert and oriented to person, place and time. SKIN: Well perfused. Good skin turgor. ASSESSMENT: 1. Partial small bowel obstruction 2. Multiple myeloma, recent diagnosis 3. Lytic bone lesions lumbar spine on CT 4. Hypokalemia 5. Hypomagnesemia 6. Discitis lumbar region PLAN: -Patient is hypotensive and requiring fluid bolus. At this time we will hold off on colonoscopy and any surgical intervention. Resume patient's regular, carb consistent diet. -Continue to monitor -Replace potassium -Continue antibiotic management for diverticulitis/acute colitis Physician Beauty Sales Consultant note has been reviewed by physician. Signing provider agrees with the documented findings, assessment, and plan of care. Objective - Vital Signs Vital signs: Vital Signs Temp 97.3 F L 09/23/23 11:10 Pulse 105 H 09/23/23 11:10 Resp 17 09/23/23 11:10 BP 89/53 09/23/23 11:10 Pulse Ox 97 09/23/23 11:10 FiO2 Intake & Output 09/22/23 09/23/23 09/23/23 18:59 06:59 18:59 Intake Total 600.005 6555.114 Output Total 3150 1240 600 Balance -2556.114 -53.886 -600 Weight 57.606 kg Intake: Intake, IV Titration 811.615 5400.114 Amount Cefepime 2 gm In Sodium 100 Chloride 0.9% 100 ml @ 25 mls/hr IVPB Q8HR [facility] Rx# :[id number] Heparin Sod,Pork in 0.45% 113.886 136.114 NaCl 25,000 unit In 0.45 % NaCl 1 250ml.bag @ 12 UNITS/KG/HR 6.913 mls/hr IV .Q24H [facility] Rx#: [id number] Sodium Chloride 0.9% 1, 750 000 ml @ 75 mls/hr IV . [id number] [facility] Rx#:[id number] metroNIDAZOLE-NS PMX 500 200 mg In Saline 1 100ml.bag @ 100 mls/hr IVPB Q8H [facility] Rx#:[id number] Oral 480 Output: Urine 3150 1240 600 Other: Voiding Method External Catheter External Catheter External Catheter # Voids 1 1 - Labs CBC & Chem 7: 09/22/23 09:50 09/23/23 11:06 Labs: Abnormal Lab Results - Last 24 Hours (Table) 09/19/23 09/22/23 09/23/23 Range/Units 17:41 20:33 11:06 APTT 75.6 H 82.7 H (22.0-30.0) sec Sodium (137-145) mmol/L Potassium (3.5-5.1) mmol/L Chloride (98-107) mmol/L Carbon Dioxide (22-30) mmol/L BUN (7-17) mg/dL Creatinine (0.52-1.04) mg/dL Calcium (8.4-10.2) mg/dL Free [place] LC, Quant 7.20 H (0.33-1.94) mg/dL 09/23/23 Range/Units 11:06 APTT (22.0-30.0) sec Sodium 132 L (137-145) mmol/L Potassium 3.0 L (3.5-5.1) mmol/L Chloride 110 H (98-107) mmol/L Carbon Dioxide 16 L (22-30) mmol/L BUN 4 L (7-17) mg/dL Creatinine 0.37 L (0.52-1.04) mg/dL Calcium 6.2 L* (8.4-10.2) mg/dL Free [place] LC, Quant (0.33-1.94) mg/dL Microbiology - Last 24 Hours (Table) 09/18/23 11:00 Anaerobic Culture - Final Aspirate
--- NOTE | 2023-09-23 15:41 | P.PN ---
Subjective Progress Note Date: 09/21/23 Principal diagnosis: Reason for follow-up is ileus possible abdominal sepsis Patient is a 63-year-old female with a past medical history significant for atrial fibrillation reflux pulmonary embolism presenting to the hospital for evaluation of low sodium and potassium, patient did have evidence of ileus low-grade fever prompting this infectious disease consultation On today's evaluation that is 09/21/2023, Patient is afebrile patient is currently on room air and denies having any shortness of breath, the patient denies any chest pain or cough, the patient is admitted complaining of abdominal discomfort nausea but no vomiting and no bowel movement. Patient white count is 4.7, creatinine 0.36 Objective - Vital Signs Vital signs: Vital Signs Temp 98.2 F 09/21/23 08:00 Pulse 101 H 09/21/23 08:00 Resp 18 09/21/23 08:00 BP 96/60 09/21/23 08:00 Pulse Ox 94 L 09/21/23 08:00 FiO2 Intake & Output 09/20/23 09/21/23 09/21/23 18:59 06:59 18:59 Intake Total 340 480.042 Output Total 650 1000 Balance -310 -519.958 Intake: Intake, IV Titration 240.042 Amount Heparin Sod,Pork in 0.45% 240.042 NaCl 25,000 unit In 0.45 % NaCl 1 250ml.bag @ 12 UNITS/KG/HR 6.913 mls/hr IV .Q24H [facility] Rx#: [id number] Oral 340 240 Output: Urine 650 1000 Other: Voiding Method External Catheter External Catheter External Catheter # Bowel Movements 2 - Exam GENERAL DESCRIPTION: Middle-aged female lying in bed in no distress RESPIRATORY SYSTEM: Unlabored breathing , decreased breath sounds at bases HEART: S1 S2 regular rate and rhythm , ABDOMEN: Soft mild tenderness EXTREMITIES: No edema feet - Labs CBC & Chem 7: 09/22/23 09:50 09/23/23 11:06 Labs: Abnormal Lab Results - Last 24 Hours (Table) 09/20/23 09/20/23 09/21/23 Range/Units 14:01 14:01 09:51 RBC 2.52 L (3.80-5.40) m/uL Hgb 7.7 L (11.4-16.0) gm/dL Hct 27.6 L (34.0-46.0) % MCV 109.8 H D (80.0-100.0) fL MCHC 28.0 L (31.0-37.0) g/dL RDW 21.1 H (11.5-15.5) % Lymphocytes # 0.4 L (1.0-4.8) k/uL Macrocytosis Marked A Sodium (137-145) mmol/L Chloride (98-107) mmol/L Carbon Dioxide (22-30) mmol/L BUN (7-17) mg/dL Creatinine (0.52-1.04) mg/dL Calcium (8.4-10.2) mg/dL Ionized Calcium Kristyn 3.9 L (4.5-5.3) mg/dL IgA 637.0 H (60.0-350.0) mg/dL IgM <35.0 L (40.0-280.0) mg/dL 09/21/23 Range/Units 09:51 RBC (3.80-5.40) m/uL Hgb (11.4-16.0) gm/dL Hct (34.0-46.0) % MCV (80.0-100.0) fL MCHC (31.0-37.0) g/dL RDW (11.5-15.5) % Lymphocytes # (1.0-4.8) k/uL Macrocytosis Sodium 132 L (137-145) mmol/L Chloride 112 H (98-107) mmol/L Carbon Dioxide 17 L (22-30) mmol/L BUN <2 L (7-17) mg/dL Creatinine 0.36 L (0.52-1.04) mg/dL Calcium 6.0 L* (8.4-10.2) mg/dL Ionized Calcium Kristyn (4.5-5.3) mg/dL IgA (60.0-350.0) mg/dL IgM (40.0-280.0) mg/dL Microbiology - Last 24 Hours (Table) 09/18/23 11:00 Anaerobic Culture - Preliminary Aspirate 09/18/23 11:00 Gram Stain - Final Aspirate Body Fluid Culture - Final Enterobacter cloacae 09/18/23 13:40 Blood Culture - Preliminary Blood Assessment and Plan (1) SIRS (systemic inflammatory response syndrome) Current Visit: Yes Status: Acute Code(s): R65.10 - SIRS OF NON-INFECTIOUS ORIGIN W/O ACUTE ORGAN DYSFUNCTION SNOMED Code(s): 907197167 (2) Leukopenia Current Visit: Yes Status: Acute Code(s): D72.819 - DECREASED WHITE BLOOD CELL COUNT, UNSPECIFIED SNOMED Code(s): 76862170 (3) Discitis of lumbar region Current Visit: Yes Status: Acute Priority: High Code(s): M46.46 - DISCITIS, UNSPECIFIED, LUMBAR REGION SNOMED Code(s): 331328561 Plan: 1patient presented to hospital with abnormal electrolytes did have some nausea vomiting and abdominal pain CT abdominal pelvis has been suggestive of ileus patient did have leukopenia and a low-grade fever, dealing mostly with the ileus questionably mechanical keeping in mind significant leukopenia and low-grade fever we will need to cover for enteric gram-negative both aerobes and anaerobes 2-patient MRI of the lumbosacral spine suspicious for possible discitis/osteomyelitis discussed with the spine surgery recommending IR aspiration for biopsy has been completed cultures are currently growing gram- negative bacilli which has been identified as Enterobacter, patient is covered with cefepime PICC line has been ordered for tomorrow for outpatient IV antibiotic therapy Dictation was produced using [employer] dictation software. please excuse any grammatical, word or spelling errors. Time with Patient: Less than 30
--- NOTE | 2023-09-23 15:42 | P.PN ---
Subjective Progress Note Date: 09/22/23 Principal diagnosis: Reason for follow-up is ileus possible abdominal sepsis Patient is a 63-year-old female with a past medical history significant for atrial fibrillation reflux pulmonary embolism presenting to the hospital for evaluation of low sodium and potassium, patient did have evidence of ileus low-grade fever prompting this infectious disease consultation On today's evaluation that is 09/22/2023, patient has been afebrile, patient is breathing comfortably and is currently on room air, patient denies having any significant cough no chest pain shortness of breath, patient has been complaining of mostly abdominal discomfort and nausea but no vomiting did not have any bowel movement. The patient white count is 5.6 creatinine 0.35 Objective - Vital Signs Vital signs: Vital Signs Temp 98.2 F 09/22/23 08:00 Pulse 109 H 09/22/23 08:00 Resp 18 09/22/23 08:00 BP 92/52 09/22/23 08:00 Pulse Ox 95 09/22/23 08:00 FiO2 Intake & Output 09/21/23 09/22/23 09/22/23 18:59 06:59 18:59 Intake Total 243.326 113.886 Output Total 500 750 Balance -500 -506.674 113.886 Intake: Intake, IV Titration 243.326 113.886 Amount Heparin Sod,Pork in 0.45% 243.326 113.886 NaCl 25,000 unit In 0.45 % NaCl 1 250ml.bag @ 12 UNITS/KG/HR 6.913 mls/hr IV .Q24H [facility] Rx#: [id number] Output: Urine 500 750 Other: Voiding Method External Catheter External Catheter External Catheter # Bowel Movements 1 - Exam GENERAL DESCRIPTION: Middle-aged female lying in bed in no distress RESPIRATORY SYSTEM: Unlabored breathing , decreased breath sounds at bases HEART: S1 S2 regular rate and rhythm , ABDOMEN: Soft mild tenderness EXTREMITIES: No edema feet - Labs CBC & Chem 7: 09/22/23 09:50 09/23/23 11:06 Labs: Abnormal Lab Results - Last 24 Hours (Table) 09/22/23 09/22/23 09/22/23 Range/Units 09:50 09:50 09:50 RBC 2.45 L (3.80-5.40) m/uL Hgb 7.8 L (11.4-16.0) gm/dL Hct 24.6 L (34.0-46.0) % MCV 100.5 H D (80.0-100.0) fL RDW 21.4 H (11.5-15.5) % Plt Count 137 L (150-450) k/uL Lymphocytes # 0.5 L (1.0-4.8) k/uL APTT 150.1 H* (22.0-30.0) sec Sodium 134 L (137-145) mmol/L Chloride 115 H (98-107) mmol/L Carbon Dioxide 15 L (22-30) mmol/L BUN <2 L (7-17) mg/dL Creatinine 0.35 L (0.52-1.04) mg/dL Calcium 6.3 L* (8.4-10.2) mg/dL Microbiology - Last 24 Hours (Table) 09/18/23 13:40 Blood Culture - Preliminary Blood Assessment and Plan (1) SIRS (systemic inflammatory response syndrome) Current Visit: Yes Status: Acute Code(s): R65.10 - SIRS OF NON-INFECTIOUS ORIGIN W/O ACUTE ORGAN DYSFUNCTION SNOMED Code(s): 519359804 (2) Leukopenia Current Visit: Yes Status: Acute Code(s): D72.819 - DECREASED WHITE BLOOD CELL COUNT, UNSPECIFIED SNOMED Code(s): 22854738 (3) Discitis of lumbar region Current Visit: Yes Status: Acute Priority: High Code(s): M46.46 - DISCITIS, UNSPECIFIED, LUMBAR REGION SNOMED Code(s): 020974344 Plan: 1patient presented to hospital with abnormal electrolytes did have some nausea vomiting and abdominal pain CT abdominal pelvis has been suggestive of ileus patient did have leukopenia and a low-grade fever, dealing mostly with the ileus questionably mechanical keeping in mind significant leukopenia and low-grade fever, patient is currently covered with cefepime and Flagyl 2-patient MRI of the lumbosacral spine suspicious for possible discitis/osteomyelitis discussed with the spine surgery recommending IR aspiration for biopsy has been completed cultures are currently growing gram- negative bacilli which has been identified as Enterobacter, patient is covered with cefepime PICC line has been rescheduled for tomorrow by vascular surgery Dictation was produced using [employer] software. please excuse any grammatical, word or spelling errors. Time with Patient: Less than 30
[2023-09-23] MEDS: POTASSIUM CHLORIDE ER 20 MEQ TAB.ER PO SCH (15:43)
[2023-09-23] MEDS: CALCIUM GLUCONATE IN NACL 1 GM in SALINE 1 100ML.BAG IVPB ONE (15:44)
--- NOTE | 2023-09-23 15:44 | P.PN ---
Subjective Progress Note Date: 09/23/23 Principal diagnosis: Reason for follow-up is ileus possible abdominal sepsis Patient is a 63-year-old female with a past medical history significant for atrial fibrillation reflux pulmonary embolism presenting to the hospital for evaluation of low sodium and potassium, patient did have evidence of ileus low-grade fever prompting this infectious disease consultation On today's evaluation that is 09/23/2023,the patient denies any fever or any chills, patient is breathing comfortably on room air, the patient denies chest pain shortness of breath and no significant cough, patient still complaining of abdominal discomfort and nausea but no vomiting did not have any bowel movement and not passing any gas. Patient creatinine 0.37 blood culture has been negative Objective - Vital Signs Vital signs: Vital Signs Temp 97.3 F L 09/23/23 11:10 Pulse 97 09/23/23 15:18 Resp 16 09/23/23 15:18 BP 88/48 09/23/23 15:18 Pulse Ox 95 09/23/23 15:18 FiO2 Intake & Output 09/22/23 09/23/23 09/23/23 18:59 06:59 18:59 Intake Total 579.765 8324.114 Output Total 3150 1240 600 Balance -2556.114 -53.886 -600 Weight 57.606 kg Intake: Intake, IV Titration 833.046 0431.114 Amount Cefepime 2 gm In Sodium 100 Chloride 0.9% 100 ml @ 25 mls/hr IVPB Q8HR [facility] Rx# :[id number] Heparin Sod,Pork in 0.45% 113.886 136.114 NaCl 25,000 unit In 0.45 % NaCl 1 250ml.bag @ 12 UNITS/KG/HR 6.913 mls/hr IV .Q24H [facility] Rx#: [id number] Sodium Chloride 0.9% 1, 750 000 ml @ 75 mls/hr IV . [id number] [facility] Rx#:[id number] metroNIDAZOLE-NS PMX 500 200 mg In Saline 1 100ml.bag @ 100 mls/hr IVPB Q8H [facility] Rx#:[id number] Oral 480 Output: Urine 3150 1240 600 Other: Voiding Method External Catheter External Catheter External Catheter # Voids 1 1 - Exam GENERAL DESCRIPTION: Middle-aged female lying in bed in no distress RESPIRATORY SYSTEM: Unlabored breathing , decreased breath sounds at bases HEART: S1 S2 regular rate and rhythm , ABDOMEN: Soft mild tenderness EXTREMITIES: No edema feet - Labs CBC & Chem 7: 09/22/23 09:50 09/23/23 11:06 Labs: Abnormal Lab Results - Last 24 Hours (Table) 09/19/23 09/22/23 09/23/23 Range/Units 17:41 20:33 11:06 APTT 75.6 H 82.7 H (22.0-30.0) sec Sodium (137-145) mmol/L Potassium (3.5-5.1) mmol/L Chloride (98-107) mmol/L Carbon Dioxide (22-30) mmol/L BUN (7-17) mg/dL Creatinine (0.52-1.04) mg/dL Calcium (8.4-10.2) mg/dL Free [place] LC, Quant 7.20 H (0.33-1.94) mg/dL 09/23/23 Range/Units 11:06 APTT (22.0-30.0) sec Sodium 132 L (137-145) mmol/L Potassium 3.0 L (3.5-5.1) mmol/L Chloride 110 H (98-107) mmol/L Carbon Dioxide 16 L (22-30) mmol/L BUN 4 L (7-17) mg/dL Creatinine 0.37 L (0.52-1.04) mg/dL Calcium 6.2 L* (8.4-10.2) mg/dL Free [place] LC, Quant (0.33-1.94) mg/dL Microbiology - Last 24 Hours (Table) 09/18/23 11:00 Anaerobic Culture - Final Aspirate Assessment and Plan (1) SIRS (systemic inflammatory response syndrome) Current Visit: Yes Status: Acute Code(s): R65.10 - SIRS OF NON-INFECTIOUS ORIGIN W/O ACUTE ORGAN DYSFUNCTION SNOMED Code(s): 659862698 (2) Leukopenia Current Visit: Yes Status: Acute Code(s): D72.819 - DECREASED WHITE BLOOD CELL COUNT, UNSPECIFIED SNOMED Code(s): 89736089 (3) Discitis of lumbar region Current Visit: Yes Status: Acute Priority: High Code(s): M46.46 - DISCITIS, UNSPECIFIED, LUMBAR REGION SNOMED Code(s): 493195474 Plan: 1patient presented to hospital with abnormal electrolytes did have some nausea vomiting and abdominal pain CT abdominal pelvis has been suggestive of ileus patient did have leukopenia and a low-grade fever, dealing mostly with the ileus questionably mechanical keeping in mind significant leukopenia and low-grade fever, patient is currently covered with cefepime and Flagyl, general surgery following the patient closely 2-patient MRI of the lumbosacral spine suspicious for possible discitis/ost eomyelitis discussed with the spine surgery recommending IR aspiration for biopsy has been completed cultures are currently growing gram-negative bacilli which has been identified as Enterobacter 3- patient did get a PICC line on 09/23/2023 and we will contact the patient on cefepime Dictation was produced using [employer] dictation software. please excuse any grammatical, word or spelling errors. Time with Patient: Less than 30
[2023-09-23] MEDS: CALCIUM CARB-VIT D 500 MG-5 MCG TAB PO SCH (17:25)
[2023-09-23 20:51] LABS: Albumin 1.71 g/dL (3.80-4.90); Gamma Globulin 0.37 g/dL (0.70-1.50)
--- NOTE | 2023-09-23 21:50 | P.PN ---
Subjective 63 years old female with past medical history of multiple medical problems as below including history of bipolar and schizophrenia, history of pulmonary embolism on Eliquis, patient was recently in the hospitalized in this facility about once days for acute Neutropenic sepsis,she was discharged to [facility] also she has been treated for bowel obstruction and she has been followed by surgery team with Dr. Maynard at that time. Patient states that she has history of chronic back pain and difficulty walking for the last 2 months also, she states it is in the lumbar 3 and lumbar 4 spine vertebrae Patient was sent from [facility] because of abnormal labs and low potassium and sodium, patient states that they checked it routinely. Patient is hemodynamically stable and afebrile Labs showed low sodium 128 low potassium 2.8 and low magnesium 1.1 She has chronic leukopenia and currently 3.7, chronic anemia currently 8.5 at baseline LFTs unremarkable EKG shows sinus rhythm at [address]-T changes 09/19/2023 --patient denies any fever or any chills, patient is breathing comfortably on room air, the patient denies chest pain shortness of breath and no significant cough, patient did have removal of the NG and she did have bowel movement and has been started on a diet with the patient has been tolerating Patient white count of 2.9 creatinine 0.36 -patient presented to hospital with abnormal electrolytes did have some nausea vomiting and abdominal pain CT abdominal pelvis has been suggestive of ileus patient did have leukopenia and a low-grade fever, dealing mostly with the ileus questionably mechanical keeping in mind significant leukopenia and low-grade fever we will need to cover for enteric gram-negative both aerobes and anaerobes -patient MRI of the lumbosacral spine suspicious for possible discitis/osteomyelitis discussed with the spine surgery recommending IR aspiration for biopsy which was completed this morning results will be followed -patient is covered with Rocephin and Flagyl discharge antibiotic on the basis of final culture 09/20/2023 She is seen and evaluated with family members at bedside; continues to report uncontrolled pain Vital signs are reviewed stable with temperature of 98.5, pulse 93, respirations 16 and blood pressure of 89/53 WBC 3.4, hemoglobin 7.6 and platelet count of 171, sodium 134, potassium 3.6, BUNs/creatinine 2/0.34 blood glucose of 87 CT-guided aspiration from lumbar spine reveals gram-negative bacilli, sensitivities pending; ID recommending to discontinue Rocephin and patient is placed on IV cefepime with recommendations for PICC line and IV antibiotic therapy as an outpatient 09/21/2023 Patient is seen and evaluated in room at bedside; continues to report left lower quadrant pain which is slightly worse compared to yesterday Vital signs are stable with temperature of 98.2, pulse 101, respiration 18 and blood pressure of 96/60 -General surgery on board and recommending to proceed with CT of the abdomen to rule out intra-abdominal pathology -CT of the abdomen reveals interval development of small bilateral pulm effusions and bilateral lower lobe infiltrates; stable moderate pericardial effusion; partial bowel obstruction involving small bowel and colon to the level of the distal descending colon/proximal sigmoid colon secondary to inflammatory changes, consistent with acute diverticulitis; interval of marked soft tissue edema and lateral abdominal wall and right buttock area no discrete abscess seen. -Patient remains on IV antibiotics in form of cefepime and Flagyl for discitis/osteomyelitis; antibiotics will give coverage for developing acute diverticulitis -Surgery team has been paged for partial SBO 09/22/2023 Patient is awake and alert Complains from abdominal pain and back pain related to her discitis of L2-L3. Also patient suspected to have diverticular disease causing her abdominal pain. She has partial bowel obstruction. Surgery team is planning for colonoscopy which was held because patient was hypotensive. Patient has been hypotensive throughout this admission. Patient remains on normal saline 75 mL/h and she got boluses, she got fluid overload and she is concerned about her swollen feet. IV Lasix 40 mg was held, we will going to lower the dose to 20 mg tomorrow Patient remains on heparin drip while Eliquis on hold for her history of pulmonary embolism She got PICC line with plan for IV cefepime upon discharge Currently she is on IV Flagyl and cefepime Objective - Vital Signs Vital signs: Vital Signs Temp 97.3 F L 09/23/23 11:10 Pulse 105 H 09/23/23 11:10 Resp 17 09/23/23 11:10 BP 89/53 09/23/23 11:10 Pulse Ox 97 09/23/23 11:10 FiO2 Intake & Output 09/22/23 09/23/23 09/23/23 18:59 06:59 18:59 Intake Total 283.418 7040.114 Output Total 3150 1240 Balance -2556.114 -53.886 Weight 57.606 kg Intake: Intake, IV Titration 610.803 3752.114 Amount Cefepime 2 gm In Sodium 100 Chloride 0.9% 100 ml @ 25 mls/hr IVPB Q8HR MARIE Rx# :[id number] Heparin Sod,Pork in 0.45% 113.886 136.114 NaCl 25,000 unit In 0.45 % NaCl 1 250ml.bag @ 12 UNITS/KG/HR 6.913 mls/hr IV .Q24H MARIE Rx#: [id number] Sodium Chloride 0.9% 1, 750 000 ml @ 75 mls/hr IV . [id number] MARIE Rx#:[id number] PMX 500 200 mg In Saline 1 100ml.bag @ 100 mls/hr IVPB Q8H MARIE Rx#:[id number] Oral 480 Output: Urine 3150 1240 Other: Voiding Method External Catheter External Catheter External Catheter # Voids 1 1 - Exam GENERAL: The patient is alert and oriented x3, not in any acute distress. Well developed, well nourished. HEENT: Pupils are round and equally reacting to light. EOMI. No scleral icterus. No conjunctival pallor. Normocephalic, atraumatic. No pharyngeal erythema. No thyromegaly. CARDIOVASCULAR: S1 and S2 present. No murmurs, rubs, or gallops. PULMONARY: Chest is clear to auscultation, no wheezing , no crackles. ABDOMEN: Soft, nontender, nondistended, normoactive bowel sounds. No palpable organomegaly. MUSCULOSKELETAL: No joint swelling or deformity. EXTREMITIES: No cyanosis, clubbing, or pedal edema. NEUROLOGICAL: Gross neurological examination did not reveal any focal deficits. SKIN: No rashes. no petechiae. - Labs CBC & Chem 7: 09/22/23 09:50 09/23/23 11:06 Labs: Abnormal Lab Results - Last 24 Hours (Table) 09/19/23 09/22/23 09/23/23 Range/Units 17:41 20:33 11:06 APTT 75.6 H 82.7 H (22.0-30.0) sec Sodium (137-145) mmol/L Potassium (3.5-5.1) mmol/L Chloride (98-107) mmol/L Carbon Dioxide (22-30) mmol/L BUN (7-17) mg/dL Creatinine (0.52-1.04) mg/dL Calcium (8.4-10.2) mg/dL Free [place] LC, Quant 7.20 H (0.33-1.94) mg/dL 09/23/23 Range/Units 11:06 APTT (22.0-30.0) sec Sodium 132 L (137-145) mmol/L Potassium 3.0 L (3.5-5.1) mmol/L Chloride 110 H (98-107) mmol/L Carbon Dioxide 16 L (22-30) mmol/L BUN 4 L (7-17) mg/dL Creatinine 0.37 L (0.52-1.04) mg/dL Calcium 6.2 L* (8.4-10.2) mg/dL Free [place] LC, Quant (0.33-1.94) mg/dL Microbiology - Last 24 Hours (Table) 09/18/23 11:00 Anaerobic Culture - Final Aspirate Assessment and Plan Assessment: possible Acute gastroenteritis versus or exacerbated by bowel preparation for colonoscopy Suprapubic pain tenderness increased frequency of urination. Rule out UTI chronic back pain and difficulty walking for the last 2 months Atrial fibrillation on Eliquis pulmonary embolism, currently on Eliquis at home Patient history of neutropenic colitis and sigmoid colitis with pancytopenia and bacteremia secondary to Enterobacter cloacae. Schizophrenia, bipolar disorder, currently not an active issue History of bowel resection and cholecystectomy Acute gastroenteritis, acute diverticulitis with partial small bowel obstruction Shock secondary to hypovolemia, improved, still have borderline hypotension Bowel obstruction, partial and acute Lytic lesions lumbar spine with pathological fracture, L3-L4 spinal stenosis, MRI with concerns of osteomyelitis and discitis in that area status post needle aspiration with interventional radiology on 09/18/2023, L3 compression fraction of superior endplate Multiple myeloma with hypogammaglobulinemia, s/p IgG transfusion Fluid overload with bilateral pleural effusion left more than right and moderate pericardial effusion and leg edema CT of the abdomen showing right abdominal wall edema, cellulitis versus hematoma, however on inspection no discoloration, no significant tenderness pancytopenia History of chronic systolic heart failure ejection fraction of 40 to 45% Chronic atrial fibrillation on anticoagulation History of pulmonary embolism on anticoagulation Chronic back pain Gait dysfunction, medical debility History of cholecystectomy as per patient Plan: Continue with antibiotic, currently on IV cefepime and Flagyl Eliquis on hold and currently on heparin drip Continue with normal saline 75 mL/h for borderline hypotension Start Lasix 40 mg once daily for fluid overload General surgery following for bowel obstruction and diverticulitis Continue with IV Protonix twice daily ID team and hematology/oncology team on the case Labs and medication were reviewed.. Continue same treatment. Continue with symptomatic treatment. Resume home medication. Monitor labs and vitals. DVT and GI prophylaxis. Further recommendations as per clinical course of the patient DVT prophylaxis: heparin GI Prophylaxis: Ppi PT/OT: Will benefit from ECF, KADEN Prognosis is guarded
[2023-09-24] MEDS ORDERED: FUROSEMIDE 10 MG/ML 2 ML VIAL IV SCH (09:00)
[2023-09-24] MEDS: SODIUM CHLORIDE 0.9% 500 ML 250 ML IV ONE (10:59)
[2023-09-24 11:59] LABS: African American GFR (CKD) >90 (>60 ml/min/1.73 sqM); Anion Gap 5 mmol/L; Blood Urea Nitrogen 3 mg/dL (7-17); Carbon Dioxide 16 mmol/L (22-30); Chloride 111 mmol/L (98-107); Glucose 88 mg/dL (74-99); Non-African American GFR(CKD) >90 (>60 ml/min/1.73 sqM); Potassium 3.7 mmol/L (3.5-5.1); Sodium 132 mmol/L (137-145)
--- NOTE | 2023-09-24 12:07 | P.PN ---
Subjective 63 years old female with past medical history of multiple medical problems as below including history of bipolar and schizophrenia, history of pulmonary embolism on Eliquis, patient was recently in the hospitalized in this facility about once days for acute Neutropenic sepsis,she was discharged to [facility] also she has been treated for bowel obstruction and she has been followed by surgery team with Dr. Maynard at that time. Patient states that she has history of chronic back pain and difficulty walking for the last 2 months also, she states it is in the lumbar 3 and lumbar 4 spine vertebrae Patient was sent from [facility] because of abnormal labs and low potassium and sodium, patient states that they checked it routinely. Patient is hemodynamically stable and afebrile Labs showed low sodium 128 low potassium 2.8 and low magnesium 1.1 She has chronic leukopenia and currently 3.7, chronic anemia currently 8.5 at baseline LFTs unremarkable EKG shows sinus rhythm at [address]-T changes 09/19/2023 --patient denies any fever or any chills, patient is breathing comfortably on room air, the patient denies chest pain shortness of breath and no significant cough, patient did have removal of the NG and she did have bowel movement and has been started on a diet with the patient has been tolerating Patient white count of 2.9 creatinine 0.36 -patient presented to hospital with abnormal electrolytes did have some nausea vomiting and abdominal pain CT abdominal pelvis has been suggestive of ileus patient did have leukopenia and a low-grade fever, dealing mostly with the ileus questionably mechanical keeping in mind significant leukopenia and low-grade fever we will need to cover for enteric gram-negative both aerobes and anaerobes -patient MRI of the lumbosacral spine suspicious for possible discitis/osteomyelitis discussed with the spine surgery recommending IR aspiration for biopsy which was completed this morning results will be followed -patient is covered with Rocephin and Flagyl discharge antibiotic on the basis of final culture 09/20/2023 She is seen and evaluated with family members at bedside; continues to report uncontrolled pain Vital signs are reviewed stable with temperature of 98.5, pulse 93, respirations 16 and blood pressure of 89/53 WBC 3.4, hemoglobin 7.6 and platelet count of 171, sodium 134, potassium 3.6, BUNs/creatinine 2/0.34 blood glucose of 87 CT-guided aspiration from lumbar spine reveals gram-negative bacilli, sensitivities pending; ID recommending to discontinue Rocephin and patient is placed on IV cefepime with recommendations for PICC line and IV antibiotic therapy as an outpatient 09/21/2023 Patient is seen and evaluated in room at bedside; continues to report left lower quadrant pain which is slightly worse compared to yesterday Vital signs are stable with temperature of 98.2, pulse 101, respiration 18 and blood pressure of 96/60 -General surgery on board and recommending to proceed with CT of the abdomen to rule out intra-abdominal pathology -CT of the abdomen reveals interval development of small bilateral pulm effusions and bilateral lower lobe infiltrates; stable moderate pericardial effusion; partial bowel obstruction involving small bowel and colon to the level of the distal descending colon/proximal sigmoid colon secondary to inflammatory changes, consistent with acute diverticulitis; interval of marked soft tissue edema and lateral abdominal wall and right buttock area no discrete abscess seen. -Patient remains on IV antibiotics in form of cefepime and Flagyl for discitis/osteomyelitis; antibiotics will give coverage for developing acute diverticulitis -Surgery team has been paged for partial SBO 09/22/2023 Patient is awake and alert Complains from abdominal pain and back pain related to her discitis of L2-L3. Also patient suspected to have diverticular disease causing her abdominal pain. She has partial bowel obstruction. Surgery team is planning for colonoscopy which was held because patient was hypotensive. Patient has been hypotensive throughout this admission. Patient remains on normal saline 75 mL/h and she got boluses, she got fluid overload and she is concerned about her swollen feet. IV Lasix 40 mg was held, we will going to lower the dose to 20 mg tomorrow Patient remains on heparin drip while Eliquis on hold for her history of pulmonary embolism She got PICC line with plan for IV cefepime upon discharge Currently she is on IV Flagyl and cefepime 09/24/2023 Patient awake alert, she is still complaining from abdominal pain and back pain Her abdomen is mildly distended She could not eat because of nausea Blood pressure is on the low side, she already received normal saline, also she is on midodrine 10 mg 3 times daily. We will add albumin infusion x 2 to help support her blood pressure. Surgery team on the case. Colonoscopy was canceled yesterday because of hypertension. Will continue with broad-spectrum antibiotic on IV cefepime and Flagyl Review of systems CONSTITUTIONAL: No fever, no malaise, no fatigue. HEENT: No recent visual problems or hearing problems. Denied any sore throat. CARDIOVASCULAR: No orthopnea, PND, no palpitations, no syncope. PULMONARY: No shortness of breath, no cough, no hemoptysis. HEMATOLOGICAL: Denies any bleeding or petechiae. GENITOURINARY: Denies any burning micturition, frequency, or urgency. Patient also on heparin drip for her history of PE. Monique is on hold Active Medications Generic Name Dose Route Start Last Admin Trade Name Freq PRN Reason Stop Dose Admin Acetaminophen 650 mg 09/11/23 18:55 09/20/23 03:32 Acetaminophen Tab 325 Mg Tab PO 650 mg Q6HR PRN Administration Mild Pain or Fever > 100.5 Alprazolam 0.5 mg 09/14/23 22:02 09/22/23 01:53 Alprazolam 0.5 Mg Tab PO 0.5 mg TID PRN Administration Anxiety Amiodarone HCl 200 mg 09/12/23 09:00 09/24/23 11:00 Amiodarone 200 Mg Tab PO 200 mg DAILY MARIE Administration Benzocaine/Menthol 1 each 09/15/23 17:08 09/15/23 17:13 Benzocaine/Menthol Lozeng 1 Each Lozenge MUCOUS MEM 1 each Q4HR PRN Administration Sore Throat Calcium Carbonate 1 each 09/23/23 17:30 09/24/23 06:19 Calcium Carb-Vit D 500 Mg-5 Mcg Tab PO 1 each TID-W/MEALS MARIE Administration Cholecalciferol 125 mcg 09/12/23 09:00 09/24/23 11:01 Cholecalciferol 125 Mcg (5000 Iu) Tablet PO 125 mcg DAILY MARIE Administration Cholestyramine Resin 4 gm 09/19/23 18:00 09/23/23 17:25 Cholestyramine (With Sugar) 4 Gm Packet PO Not Given BID@1000,1800 MARIE Cyanocobalamin 1,000 mcg 09/12/23 09:00 09/24/23 11:01 Cyanocobalamin 500 Mcg Tab PO 1,000 mcg DAILY MARIE Administration Heparin Sodium (Porcine) 0 unit 09/15/23 21:00 09/16/23 23:49 Heparin Sodium 1,000 Un/Ml (10ml Vl) IV 2,850 unit PER PROTOCOL PRN Administration Low PTT Protocol Sodium Chloride 1,000 mls @ 75 mls/hr 09/11/23 17:45 09/24/23 02:52 Saline 0.9% IV Not Given .[id number] MARIE Metronidazole 500 mg/ IV 100 mls @ 100 mls/hr 09/12/23 15:00 09/24/23 06:19 Solution IVPB 100 mls/hr Q8H MARIE Administration Protocol Heparin Sodium/Sodium Chloride 250 mls @ 6.913 mls/hr 09/15/23 21:00 09/23/23 21:23 25,000 unit/ Sodium Chloride IV Not Given .Q24H MARIE Protocol 12 UNITS/KG/HR Cefepime HCl 2 gm/ Sodium 100 mls @ 25 mls/hr 09/20/23 09:30 09/24/23 11:01 Chloride IVPB 25 mls/hr Q8HR MARIE Administration Protocol Lactated Ringer's 1,000 mls @ 20 mls/hr 09/23/23 07:45 09/23/23 07:59 Lactated Ringers IV Not Given .Q24H MARIE Albumin Human 50 ml/ IV 50 mls @ 50 mls/hr 09/24/23 12:00 Solution IVPB 09/24/23 13:59 Q1H MARIE Lidocaine 1 patch 09/16/23 21:00 09/23/23 21:23 Lidocaine 4% Patch TOPICAL 1 patch HS MARIE Administration Protocol Magnesium Oxide 400 mg 09/18/23 21:00 09/24/23 11:00 Magnesium Oxide 400 Mg Tab PO 400 mg BID MARIE Administration Methocarbamol 500 mg 09/11/23 20:29 09/21/23 22:33 Methocarbamol 500 Mg Tab PO 500 mg Q8H PRN Administration Muscle Spasm Midodrine 10 mg 09/18/23 20:22 09/24/23 06:19 Midodrine 5 Mg Tab PO 10 mg AC-TID MARIE Administration Miscellaneous Information 1 each 09/17/23 09:42 Magnesium Replacement Protocol 1 Each Misc MISCELLANE DAILY PRN Per Protocol Protocol Miscellaneous Information 1 each 09/17/23 09:42 Potassium Replacement Protocol 1 Each Misc MISCELLANE DAILY PRN Per Protocol Protocol Morphine Sulfate 4 mg 09/14/23 13:21 09/23/23 23:21 Morphine Sulfate 4 Mg/Ml Syringe IVP 2 mg Q4HR PRN Administration Pain Naloxone HCl 0.2 mg 09/11/23 18:55 Naloxone 0.4 Mg/Ml 1 Ml Vial IV Q2M PRN Opioid Reversal Ondansetron HCl 4 mg 09/11/23 20:29 09/24/23 06:22 Ondansetron 4 Mg/2 Ml Vial IVP 4 mg Q6HR PRN Administration Nausea And Vomiting Oxcarbazepine 300 mg 09/11/23 21:00 09/24/23 11:04 Oxcarbazepine 300 Mg Tab PO 300 mg Q8HR MARIE Administration Oxycodone/Acetaminophen 1 each 09/11/23 22:00 09/24/23 11:00 Oxycodone-Apap 5-325mg 1 Each Tab PO 1 each TID MARIE Administration Pantoprazole Sodium 40 mg 09/11/23 21:00 09/23/23 21:22 Pantoprazole 40 Mg/10 Ml Vial IVP 40 mg BID MARIE Administration Petrolatum 1 applic 09/17/23 00:21 Zinc Oxide Paste (Z-Guard) 1 Applic TOPICAL DAILY PRN Skin Irritation Protocol Potassium Chloride 10 meq 09/12/23 09:00 09/23/23 08:25 Potassium Chloride Er 10 Meq Tab.Er.Prt PO 10 meq DAILY MARIE Administration Quetiapine Fumarate 1,200 mg 09/11/23 21:00 09/23/23 23:22 Quetiapine 400 Mg Tab PO 1,200 mg HS MARIE Administration Scopolamine 1 patch 09/15/23 10:00 09/21/23 08:52 Scopolamine 1 Mg/72 Hr Patch TRANSDERM 1 patch Q72H MARIE Administration Objective - Vital Signs Vital signs: Vital Signs Temp 97.9 F 09/24/23 04:00 Pulse 115 H 09/24/23 08:00 Resp 18 09/24/23 08:00 BP 94/56 09/24/23 04:00 Pulse Ox 94 L 09/24/23 04:00 FiO2 Intake & Output 09/23/23 09/24/23 09/24/23 18:59 06:59 18:59 Intake Total 500 Output Total 600 700 Balance -100 -700 Intake: Oral 500 Output: Urine 600 700 Other: Voiding Method External Catheter External Catheter External Catheter # Voids 1 # Bowel Movements 1 - Exam GENERAL: The patient is alert and oriented x3, not in any acute distress. Well developed, well nourished. HEENT: Pupils are round and equally reacting to light. EOMI. No scleral icterus. No conjunctival pallor. Normocephalic, atraumatic. No pharyngeal erythema. No thyromegaly. CARDIOVASCULAR: S1 and S2 present. No murmurs, rubs, or gallops. PULMONARY: Chest is clear to auscultation, no wheezing , no crackles. ABDOMEN: Soft, nontender, nondistended, normoactive bowel sounds. No palpable organomegaly. MUSCULOSKELETAL: No joint swelling or deformity. EXTREMITIES: No cyanosis, clubbing, or pedal edema. NEUROLOGICAL: Gross neurological examination did not reveal any focal deficits. SKIN: No rashes. no petechiae. - Labs CBC & Chem 7: 09/22/23 09:50 09/23/23 11:06 Labs: Abnormal Lab Results - Last 24 Hours (Table) 09/19/23 09/23/23 09/23/23 Range/Units 17:41 11:06 11:06 APTT 82.7 H (22.0-30.0) sec Sodium 132 L (137-145) mmol/L Potassium 3.0 L (3.5-5.1) mmol/L Chloride 110 H (98-107) mmol/L Carbon Dioxide 16 L (22-30) mmol/L BUN 4 L (7-17) mg/dL Creatinine 0.37 L (0.52-1.04) mg/dL Calcium 6.2 L* (8.4-10.2) mg/dL Albumin (PEP) 1.71 L (3.80-4.90) g/dL [id number] 0.46 H (0.10-0.40) g/dL Gamma Globulins 0.37 L (0.70-1.50) g/dL 09/23/23 09/24/23 Range/Units 17:59 11:02 APTT 57.6 H 73.3 H (22.0-30.0) sec Sodium (137-145) mmol/L Potassium (3.5-5.1) mmol/L Chloride (98-107) mmol/L Carbon Dioxide (22-30) mmol/L BUN (7-17) mg/dL Creatinine (0.52-1.04) mg/dL Calcium (8.4-10.2) mg/dL Albumin (PEP) (3.80-4.90) g/dL [id number] (0.10-0.40) g/dL Gamma Globulins (0.70-1.50) g/dL Microbiology - Last 24 Hours (Table) 09/18/23 13:40 Blood Culture - Final Blood Assessment and Plan Assessment: possible Acute gastroenteritis versus or exacerbated by bowel preparation for colonoscopy Suprapubic pain tenderness increased frequency of urination. Rule out UTI chronic back pain and difficulty walking for the last 2 months Atrial fibrillation on Eliquis pulmonary embolism, currently on Eliquis at home Patient history of neutropenic colitis and sigmoid colitis with pancytopenia and bacteremia secondary to Enterobacter cloacae. Schizophrenia, bipolar disorder, currently not an active issue History of bowel resection and cholecystectomy Acute gastroenteritis, acute diverticulitis with partial small bowel obstruction Shock secondary to hypovolemia, improved, still have borderline hypotension Bowel obstruction, partial and acute Lytic lesions lumbar spine with pathological fracture, L3-L4 spinal stenosis, MRI with concerns of osteomyelitis and discitis in that area status post needle aspiration with interventional radiology on 09/18/2023, L3 compression fraction of superior endplate Multiple myeloma with hypogammaglobulinemia, s/p IgG transfusion Fluid overload with bilateral pleural effusion left more than right and moderate pericardial effusion and leg edema CT of the abdomen showing right abdominal wall edema, cellulitis versus hematoma, however on inspection no discoloration, no significant tenderness pancytopenia History of chronic systolic heart failure ejection fraction of 40 to 45% Chronic atrial fibrillation on anticoagulation History of pulmonary embolism on anticoagulation Chronic back pain Gait dysfunction, medical debility History of cholecystectomy as per patient Plan: Continue with antibiotic, currently on IV cefepime and Flagyl Eliquis on hold and currently on heparin drip Continue with normal saline 75 mL/h for borderline hypotension. Give albumin x 2. DC Lasix General surgery following for bowel obstruction and diverticulitis Continue with IV Protonix twice daily ID team and hematology/oncology team on the case Labs and medication were reviewed.. Continue same treatment. Continue with symptomatic treatment. Resume home medication. Monitor labs and vitals. DVT and GI prophylaxis. Further recommendations as per clinical course of the patient DVT prophylaxis: heparin GI Prophylaxis: Ppi PT/OT: Will benefit from ECF, KADEN Prognosis is guarded
[2023-09-24 12:12] LABS: Calcium 6.2 mg/dL (8.4-10.2)
[2023-09-24 12:14] LABS: Anisocytosis Moderate; Basophils % (A) 0 %; Eosinophils % (A) 1 %; HCT 23.2 % (34.0-46.0); HGB 7.6 gm/dL (11.4-16.0); Hypochromasia Moderate; Lymphocytes # (A) 0.3 k/uL (1.0-4.8); Lymphocytes % (A) 8 %; MCH 33.1 pg (25.0-35.0); MCHC 32.8 g/dL (31.0-37.0); MCV 101.1 fL (80.0-100.0); Macrocytosis Marked; Mean Platelet Volume 11.1; Monocytes # (A) 0.1 k/uL (0-1.0); Monocytes % (A) 3 %; Neutrophils # (A) 3.5 k/uL (1.3-7.7); Neutrophils % (A) 86 %; Platelet Count 98 k/uL (150-450); Poikilocytosis Moderate; RBC 2.29 m/uL (3.80-5.40); RDW 21.9 % (11.5-15.5)
[2023-09-24] MEDS: ALBUMIN HUMAN 25% 50 ML in EMPTY BAG 2 BAG IVPB SCH (12:33)
--- NOTE | 2023-09-24 16:12 | P.PN ---
Subjective Progress Note Date: 09/24/23 CHIEF COMPLAINT: Abdominal pain HISTORY OF PRESENT ILLNESS: The patient is a 63-year-old female presents with bowel obstruction. Patient had repeat CT scan demonstrating partial obstruction of the colon. Patient reports her bowel movements are thicker. She reports feeling bloated and having of the left lower quadrant abdominal pain. Patient remains hypotensive with mild tachycardia. WBC is 4.0 Hgb 7.6 platelets 98 sodium is 132 potassium 3.7 creatinine 0.43 PHYSICAL EXAM: VITAL SIGNS: Reviewed GENERAL: no acute distress. Head is atraumatic, normocephalic. Hears conversational speech. No nasal drainage. NECK: Supple without lymphadenopathy. CHEST: Non-labored respirations and equal bilateral excursions. CARDIOVASCULAR: Palpable 2+ radial pulses. ABDOMEN: Soft. mildly distended. LLQ tenderness MUSCULOSKELETAL: No clubbing or cyanosis. NEUROLOGIC: No focal or lateralizing signs. Cranial nerves II through XII grossly intact. PSYCH: Appropriate affect. Alert and oriented to person, place and time. SKIN: Well perfused. Good skin turgor. ASSESSMENT: 1. Partial small bowel obstruction. Patient having bowel movements. 2. Diverticulitis 2. Multiple myeloma, recent diagnosis 3. Lytic bone lesions lumbar spine on CT 4. Hypokalemia 5. Hypomagnesemia 6. Discitis lumbar region PLAN: -Patient is hypotensive and required another fluid bolus today. No plans for colonoscopy or any surgical intervention at this time. -Continue regular/carb consistent diet -Continue to monitor -Continue antibiotic management for diverticulitis/acute colitis Physician Nursing Informatics Analyst note has been reviewed by physician. Signing provider agrees with the documented findings, assessment, and plan of care. Objective - Vital Signs Vital signs: Vital Signs Temp 99.5 F 09/24/23 14:00 Pulse 121 H 09/24/23 14:00 Resp 20 09/24/23 14:00 BP 94/53 09/24/23 14:00 Pulse Ox 93 L 09/24/23 14:00 FiO2 Intake & Output 09/23/23 09/24/23 09/24/23 18:59 06:59 18:59 Intake Total 500 Output Total 600 700 Balance -100 -700 Intake: Oral 500 Output: Urine 600 700 Other: Voiding Method External Catheter External Catheter External Catheter # Voids 1 # Bowel Movements 1 - Labs CBC & Chem 7: 09/24/23 11:02 09/24/23 11:02 Labs: Abnormal Lab Results - Last 24 Hours (Table) 09/19/23 09/23/23 09/24/23 Range/Units 17:41 17:59 10:00 RBC (3.80-5.40) m/uL Hgb (11.4-16.0) gm/dL Hct (34.0-46.0) % MCV (80.0-100.0) fL RDW (11.5-15.5) % Plt Count (150-450) k/uL Lymphocytes # (1.0-4.8) k/uL Macrocytosis APTT 57.6 H (22.0-30.0) sec Sodium (137-145) mmol/L Chloride (98-107) mmol/L Carbon Dioxide (22-30) mmol/L BUN (7-17) mg/dL Creatinine (0.52-1.04) mg/dL Calcium (8.4-10.2) mg/dL Albumin (PEP) 1.71 L (3.80-4.90) g/dL Lzttk-9-Ow[place]ble 0.46 H (0.10-0.40) g/dL Gamma Globulins 0.37 L (0.70-1.50) g/dL Vitamin D 25-Hydroxy 29.8 L (30.0-100.0) ng/mL 09/24/23 09/24/23 09/24/23 Range/Units 11:02 11:02 11:02 RBC 2.29 L (3.80-5.40) m/uL Hgb 7.6 L (11.4-16.0) gm/dL Hct 23.2 L (34.0-46.0) % MCV 101.1 H (80.0-100.0) fL RDW 21.9 H (11.5-15.5) % Plt Count 98 L (150-450) k/uL Lymphocytes # 0.3 L (1.0-4.8) k/uL Macrocytosis Marked A APTT 73.3 H (22.0-30.0) sec Sodium 132 L (137-145) mmol/L Chloride 111 H (98-107) mmol/L Carbon Dioxide 16 L (22-30) mmol/L BUN 3 L (7-17) mg/dL Creatinine 0.43 L (0.52-1.04) mg/dL Calcium 6.2 L* (8.4-10.2) mg/dL Albumin (PEP) (3.80-4.90) g/dL Gazwy-2-Spbzzjlch (0.10-0.40) g/dL Gamma Globulins (0.70-1.50) g/dL Vitamin D 25-Hydroxy (30.0-100.0) ng/mL Microbiology - Last 24 Hours (Table) 09/18/23 13:40 Blood Culture - Final Blood
--- NOTE | 2023-09-24 18:32 | P.PN ---
Subjective Progress Note Date: 09/24/23 Principal diagnosis: Osteomyelitis, IgA K MM In f/u today pt is reporting persistent abd pain, below naval, denies vomiting, "legs feel frozen", she strays off topic at random times, tearful. Objective - Vital Signs Vital signs: Vital Signs Temp 98.3 F 09/24/23 12:00 Pulse 95 09/24/23 12:00 Resp 18 09/24/23 12:00 BP 80/46 09/24/23 12:00 Pulse Ox 95 09/24/23 12:00 FiO2 Intake & Output 09/23/23 09/24/23 09/24/23 18:59 06:59 18:59 Intake Total 500 Output Total 600 700 Balance -100 -700 Intake: Oral 500 Output: Urine 600 700 Other: Voiding Method External Catheter External Catheter External Catheter # Voids 1 # Bowel Movements 1 - Constitutional General appearance: Present: average body habitus, cooperative, no acute distress - EENT Eyes: Present: anicteric sclerae, EOMI ENT: Present: hearing grossly normal - Respiratory Details: resp even and unlabored at rest - Peripheral edema leg Peripheral Edema: bilateral: None - Gastrointestinal General gastrointestinal: Present: distended, tenderness (inferior to umbilicus) - Integumentary Integumentary: Present: normal - Neurologic Neurologic: Present: CNII-XII intact (grossly) - Psychiatric Psychiatric Comment(s): Alert, oriented to self, place. Her malignancy diagnosis has been reviewed with her previously though today she asks if she is terminal, what is prognosis and asked about treatment options - Labs CBC & Chem 7: 09/24/23 11:02 09/24/23 11:02 Labs: Abnormal Lab Results - Last 24 Hours (Table) 09/19/23 09/23/23 09/24/23 Range/Units 17:41 17:59 11:02 RBC (3.80-5.40) m/uL Hgb (11.4-16.0) gm/dL Hct (34.0-46.0) % MCV (80.0-100.0) fL RDW (11.5-15.5) % Macrocytosis APTT 57.6 H (22.0-30.0) sec Sodium 132 L (137-145) mmol/L Chloride 111 H (98-107) mmol/L Carbon Dioxide 16 L (22-30) mmol/L BUN 3 L (7-17) mg/dL Creatinine 0.43 L (0.52-1.04) mg/dL Calcium 6.2 L* (8.4-10.2) mg/dL Albumin (PEP) 1.71 L (3.80-4.90) g/dL Yjlqq-7-Olcxopdhd 0.46 H (0.10-0.40) g/dL Gamma Globulins 0.37 L (0.70-1.50) g/dL 09/24/23 09/24/23 Range/Units 11:02 11:02 RBC 2.29 L (3.80-5.40) m/uL Hgb 7.6 L (11.4-16.0) gm/dL Hct 23.2 L (34.0-46.0) % MCV 101.1 H (80.0-100.0) fL RDW 21.9 H (11.5-15.5) % Macrocytosis Marked A APTT 73.3 H (22.0-30.0) sec Sodium (137-145) mmol/L Chloride (98-107) mmol/L Carbon Dioxide (22-30) mmol/L BUN (7-17) mg/dL Creatinine (0.52-1.04) mg/dL Calcium (8.4-10.2) mg/dL Albumin (PEP) (3.80-4.90) g/dL Piqit-3-Qgkbyqefo (0.10-0.40) g/dL Gamma Globulins (0.70-1.50) g/dL Microbiology - Last 24 Hours (Table) 09/18/23 13:40 Blood Culture - Final Blood Assessment and Plan (1) Discitis of lumbar region Current Visit: Yes Status: Acute Priority: High Code(s): M46.46 - DISCITIS, UNSPECIFIED, LUMBAR REGION SNOMED Code(s): 007318727 (2) Abdominal pain Current Visit: Yes Status: Acute Priority: High Code(s): R10.9 - UNSPECIFIED ABDOMINAL PAIN SNOMED Code(s): 95540244 (3) Multiple myeloma Current Visit: Yes Status: Acute Priority: High Code(s): C90.00 - MULTIPLE MYELOMA NOT HAVING ACHIEVED REMISSION SNOMED Code(s): 343519208 (4) Bicytopenia Current Visit: Yes Status: Acute Priority: Medium Code(s): D75.89 - OTHER SPECIFIED DISEASES OF BLOOD AND BLOOD-FORMING ORGANS SNOMED Code(s): 92260881 (5) Atrial fibrillation Current Visit: Yes Status: Acute Code(s): I48.91 - UNSPECIFIED ATRIAL FIBRILLATION SNOMED Code(s): 18531737 (6) History of pulmonary embolism Current Visit: Yes Status: Acute Code(s): Z86.711 - PERSONAL HISTORY OF PULMONARY EMBOLISM SNOMED Code(s): 589721972 Plan: Osteomyelitis, ileus -Pt has been seen by Infectious Disease. Antibiotics ordered -Patient has been seen by Orthopedic spine surgeon, no surgical interventions planned at this time. -Surgery following, conservative mgmt of ileus Bicytopenia -Secondary to acute infection as well as multiple myeloma -Hemoglobin 7.6 today. No transfusion at this time. Transfuse for hemoglobin less than 7 or if patient is symptomatic -Platelets 98,000 today. No acute intervention. IgA K MM -pt has not had treatment yet -Treatment is going to have to be delayed until she has adequately been treated for infection. -Will plan for follow-up in about 6 weeks to see how patient is doing -Dr. Peace of reviewed with patient her diagnosis of multiple myeloma, it being a treatable disease with multiple treatment options. All of patient's questions were answered to her satisfaction. History of pulmonary embolism and atrial fibrillation -Patient has been on heparin drip while inpatient in case of possible procedures. -Agree with continuing heparin drip until plans for discharge then patient can resume her oral anticoagulation Doctor attests: I have seen and examined pt, performed H&P, developed impression and plan of care. Discussed with dictator. I agree with nilton bowles, dictated as a scribe.
--- NOTE | 2023-09-24 19:34 | XR ---
EXAMINATION TYPE: XR chest 1V portable DATE OF EXAM: 09/24/2023 7:27 PM CLINICAL INDICATION:Female, 63 years old with history of shortness of breath; [facility] COMPARISON: Chest radiographs from 09/14/2023 TECHNIQUE: XR chest 1V portable Frontal view of the chest. FINDINGS: Lungs/Pleura: Interval development of hazy bilateral airspace opacities, right greater than left. No evidence of pleural effusion or pneumothorax. Pulmonary vascularity: Pulmonary vascular congestion. Heart/mediastinum: Cardiomediastinal silhouette is stable. Musculoskeletal: No acute osseous pathology. IMPRESSION: Interval development of bilateral hazy airspace disease, findings likely represent developing inflamm atory process vs. worsening pulmonary edema
[2023-09-24 21:25] LABS: Glucose,Whole Blood 119 mg/dL (70-110)
[2023-09-24 21:38] LABS: ABG Base Excess -5.9 mmol/L; ABG HCO3 17 mmol/L (21-25); ABG Oxygen Saturation 88.8 % (94-97); ABG PCO2 23 mmHg (35-45); ABG PH 7.48 (7.35-7.45); Allen Test Performed? Yes
[2023-09-24 21:43] LABS: ABG PO2 50 mmHg (83-108)
[2023-09-24 22:14] LABS: Glucose,Whole Blood 128 mg/dL (70-110)
[2023-09-24] MEDS ORDERED: LIDOCAINE 1% (10MG/ML) FOR IV START INTRADERMA PRN (23:29)
[2023-09-24] MEDS: DEXAMETHASONE SOD PHOSPHATE 4 MG/ML 1 ML VIAL IV ONE (23:42)
[2023-09-24] MEDS: NOREPINEPHRINE 4 MG in SODIUM CHLORIDE 0.9% 250 ML IV SCH (23:43)
[2023-09-24] MEDS: ONDANSETRON 4 MG/2 ML VIAL IVP ONE (23:46)
[2023-09-25] MEDS: LACTATED RINGERS 1,000 ML IV SCH (00:12)
[2023-09-25 00:37] LABS: Anisocytosis Moderate; Basophils % (A) 0 %; Eosinophils % (A) 0 %; HCT 22.8 % (34.0-46.0); HGB 7.3 gm/dL (11.4-16.0); Hypochromasia Marked; Lymphocytes # (A) 0.4 k/uL (1.0-4.8); Lymphocytes % (A) 7 %; MCH 33.6 pg (25.0-35.0); MCHC 32.1 g/dL (31.0-37.0); MCV 104.8 fL (80.0-100.0); Mean Platelet Volume 10.1; Monocytes # (A) 0.1 k/uL (0-1.0); Monocytes % (A) 3 %; Neutrophils # (A) 4.5 k/uL (1.3-7.7); Neutrophils % (A) 88 %; Poikilocytosis Slight; RBC 2.17 m/uL (3.80-5.40); RDW 21.8 % (11.5-15.5); WBC 5.1 k/uL (3.8-10.6)
[2023-09-25 00:39] LABS: Macrocytosis Marked; Platelet Count 78 k/uL (150-450)
[2023-09-25] MEDS: FUROSEMIDE 10 MG/ML 4 ML VIAL IV STA (01:11)
[2023-09-25 02:50] LABS: ABG Base Excess -9.6 mmol/L; ABG HCO3 15 mmol/L (21-25); ABG Oxygen Saturation 93.1 % (94-97); ABG PCO2 28 mmHg (35-45); ABG PH 7.34 (7.35-7.45); ABG PO2 70 mmHg (83-108); Allen Test Performed? Yes
[2023-09-25] MEDS: VASOPRESSIN 20 UNIT in SODIUM CHLORIDE 0.9% 50 ML IV SCH (03:02)
[2023-09-25 03:03] LABS: Magnesium 1.5 mg/dL (1.6-2.3); Phosphorus 1.6 mg/dL (2.5-4.5)
[2023-09-25 03:19] LABS: Anisocytosis Moderate; HCT 24.5 % (34.0-46.0); HGB 7.1 gm/dL (11.4-16.0); Hypochromasia Marked; MCH 31.5 pg (25.0-35.0); MCV 108.5 fL (80.0-100.0); Mean Platelet Volume 10.4; Poikilocytosis Slight; RBC 2.26 m/uL (3.80-5.40); RDW 21.9 % (11.5-15.5); WBC 7.4 k/uL (3.8-10.6)
[2023-09-25 03:21] LABS: Macrocytosis Marked; Platelet Count 91 k/uL (150-450)
--- NOTE | 2023-09-25 03:46 | P.CNPUL ---
History of Present Illness Consult date: 09/25/23 Requesting physician: Kitty Blanco Reason for consult: other (ICU management) Chief complaint: Respiratory distress and hypoxemia History of present illness: Patient is a 63-year-old white female with past medical history significant for pulmonary emboli anticoagulated on Eliquis, GERD, prior appendectomy and cholecystectomy, anxiety, depression, bipolar disorder, chronic ongoing tobacco dependence. Patient is technically a poor historian. She did have a recent complicated hospitalization 07/28 through 08/05. During this time, she was suspected of having multiple myeloma. She was treated in the ICU for bacteremia/sepsis/septic shock. Blood cultures were positive for Enterobacter cloacae. She was thought to have neutropenic colitis and possible bowel obstruction. She was thought to be high risk for surgical intervention at this time. She was transferred transferred to [facility]. Reportedly, at the outside facility, she did have a bone marrow biopsy consistent for multiple myeloma. She was eventually discharged and sent to [facility] rehab facility. Patient was again seen in the emergency room 09/11/2023 for some abnormal lab values drawn outpatient. Apparently, she she was trying to complete a bowel prep for upcoming scheduled outpatient colonoscopy. Follow-up abdominal/pelvis CT 09/21/2023 redemonstrated the partial bowel obstruction involving the small bowel and colon to the level of the distal descending colon/proximal sigmoid colon secondary to inflammatory changes. Findings were reportedly consistent with acute diverticulitis. There was interval development of marked soft tissue edema in the lateral abdominal wall and right buttock. No discrete abscess identified. Other incidental findings included a moderate size pericardial effusion. Interval development of small bilateral pleural effusions and bilateral lower lobe infiltrates. Patient reportedly scheduled for exploratory laparotomy this morning. Also of note, during this hospitalization she did have a CT of her lumbar spine without contrast which showed lytic lesions of L2 and L3 with moderate to moderate compression fracture of the superior endplate of L3. Likely pathologic findings. Follow-up lumbar MRI suggested osteomyelitis discitis. She underwent CT-guided needle aspiration on 09/18/2023, microbiology positive for Enterobacter. Blood cultures on admission demonstrate no growth. Patient currently on a combination of antibiotics directed by infectious disease. She did have a PICC line placed for antibiotics. I am evaluating this patient today 09/25/2023. A rapid response was initiated on this patient late last night around 2200. The patient was noted to be in acute distress. She was hypoxemic and in respiratory distress. She was pulling at supporting tubes/lines. She was initially put on a 15 L high flow nasal cannula. Follow-up chest x-ray showed interval development of bilateral hazy airspace disease, likely demonstrating worsening pulmonary edema, however, a inflammatory/infectious process is not excluded. An ABG done during the ateam, showed a PaO2 of 50, pCO2 of 23, pH of 7.48. Recent echocardiogram done 07/30/2023 demonstrated an impaired left ventricular ejection fraction of 40 to 45% as well as a small pericardial effusion. On my evaluation, there is third spacing and she appears in a positive fluid balance. Most recent available CBC from last night demonstrates a WBC count of 5.1, hemoglobin of 7.3, hematocrit 22.8, and platelet count of 78,000. Platelets are trending down. No overt signs of bleeding noted. Hemoglobin has been near baseline. BMP includes a sodium 132, potassium 3.7, chloride 111, serum bicarb 16, BUN 3, creatinine 0.43, glucose 88. Calcium was 6.2. Normal saline infusing at 75 mL/h. Patient has since been transferred to the intensive care unit at the direction of my supervising physician Dr. Sterling. Currently, patient is lying in bed, on 11 L high flow nasal cannula, moderately dyspneic. Tachypneic breathing around 30 breaths/min. She denies any specific complaints, although appears mildly anxious. Blood pressure has since become hypotensive, requiring the addition of norepinephrine which is infusing at 0.06 mcg/kg/min. Heart rhythm appears sinus tachycardia on the bedside monitor. Patient's Eliquis has been transitioned to heparin infusion per protocol. Abdomen is distended and mildly tender. Patient is supposedly scheduled for a exploratory laparotomy tomorrow, however, her clinical condition is deteriorated overnight. Review of Systems REVIEW OF SYSTEMS: CONSTITUTIONAL: Denies any recent significant weight loss or weight gain. EYES: Denies change in vision. EARS, NOSE, MOUTH, THROAT: Denies headaches, denies sore throat. CARDIOVASCULAR: Denies chest pain, palpitations or syncopal episodes. RESPIRATORY: Denies cough, congestion or hemoptysis. Admits shortness of breath, currently at rest in bed. GASTROINTESTINAL: Denies change in appetite, nausea and vomiting, or diarrhea. Denies GI bleeding or melanotic stools. No hematemesis reported. Admits mild abdominal tenderness especially with palpation, seems to be generalized and nonl ocalized. GENITOURINARY: Denies hematuria, denies infections. MUSKULOSKELETAL: Denies pain, denies swelling. INTEGUMENTARY: Denies rash, denies eczema. NEUROLOGICAL: Denies recent memory loss, no recent seizure activity. PSYCHIATRIC: States she is anxious currently. HEMATOLOGIC/LYMPHATIC: Denies anemia, denies enlarged lymph node Past Medical History Past Medical History: Atrial Fibrillation, Blood Disorder, GERD/Reflux, Pulmonary Embolus (PE) Additional Past Medical History / Comment(s): Anemia, Recent back fx (August 2023), Intubated at [facility] (August 2023), Low BPs History of Any Multi-Drug Resistant Organisms: None Reported Past Surgical History: Appendectomy, Bowel Resection, Breast Surgery, Section, Cholecystectomy, Hernia Repair, Tubal Ligation Additional Past Surgical History / Comment(s): HERNIATED BOWEL REQUIRED BOWEL RESECTION., BREAST IMPLANTS, Pt. states "L breast imploded and the R implant needs to be removed." Past Anesthesia/Blood Transfusion Reactions: No Reported Reaction Additional Past Anesthesia/Blood Transfusion Reaction / Comment(s): HX OF BLOOD TRANSFUSION-NO REACTION Past Psychological History: Anxiety, Bipolar, Depression Additional Psychological History / Comment(s): manic episodes Smoking Status: Former smoker Past Alcohol Use History: None Reported Additional Past Alcohol Use History / Comment(s): . Past Drug Use History: None Reported - Past Family History Mother Family Medical History: No Reported History Father Additional Family Medical History / Comment(s): COMMITTED SUICIDE AT AGE 28 Medications and Allergies Home Medications Medication Instructions Recorded Confirmed Type RX: ALPRAZolam [Xanax] 1 mg PO TID PRN 05/25/22 09/11/23 History RX: OXcarbazepine [Trileptal] 300 mg PO Q8H 05/25/22 09/11/23 History Apixaban [Eliquis] 5 mg PO BID 03/08/23 09/11/23 History Cyanocobalamin (Vitamin B-12) 1,000 mcg PO DAILY 03/08/23 09/11/23 History [Vitamin B-12] QUEtiapine [SEROquel] 1,200 mg PO HS 03/08/23 09/11/23 History RX: Omeprazole 40 mg PO DAILY 03/08/23 09/11/23 History methocarbamoL [Robaxin] 500 mg PO Q8H PRN 07/29/23 09/11/23 History Acetaminophen Tab [Tylenol] 650 mg PO Q4H PRN 09/11/23 09/11/23 History Amiodarone [Cordarone] 200 mg PO DAILY 09/11/23 09/11/23 History Cholecalciferol [Vitamin D3 (125 125 mcg PO DAILY 09/11/23 09/11/23 History Mcg = 5000 Iu)] Lactulose [Cephulac] 10 gm PO BID 09/11/23 09/11/23 History Potassium Chloride ER [K-Dur 10] 10 meq PO DAILY 09/11/23 09/11/23 History oxyCODONE-APAP 5-325MG [Percocet 1 tab PO TID 09/11/23 09/11/23 History 5-325 mg] Allergies Allergy/AdvReac Type Severity Reaction Status Date / Time No Known Allergies Allergy Verified 09/11/23 17:06 Physical Exam Vitals: Vital Signs Temp Pulse Resp BP Pulse Ox FiO2 09/25/23 01:41 50 09/24/23 23:40 96 09/24/23 21:20 98.0 F 133 H 40 H 122/55 87 L 09/24/23 16:00 98.0 F 128 H 22 74/36 93 L 09/24/23 14:00 99.5 F 121 H 20 94/53 93 L 09/24/23 12:00 98.3 F 95 18 80/46 95 09/24/23 08:00 98.8 F 114 H 16 77/42 95 09/24/23 04:00 97.9 F 115 H 16 94/56 94 L Intake and Output 09/24/23 09/24/23 09/25/23 14:59 22:59 06:59 Intake Total 218.679 Balance 218.679 Intake: Intake, IV Titration 218.679 Amount Heparin Sod,Pork in 0.45% 218.679 NaCl 25,000 unit In 0.45 % NaCl 1 250ml.bag @ 12 UNITS/KG/HR 6.913 mls/hr IV .Q24H [facility] Rx#: [id number] Oral 0 Other: Voiding Method External Catheter External Catheter # Bowel Movements 2 GENERAL EXAM: Alert, 63-year-old white female, fatigued and anxious appearing. On 11 L high flow nasal cannula, occasional pulling at supporting lines/tubes. HEAD: Normocephalic and atraumatic EYES: Normal reaction of pupils, equal size. NOSE: Clear with pink turbinates. THROAT: No erythema or exudates. NECK: No masses, no JVD. CHEST: No chest wall deformity. LUNGS: Equal air entry with no crackles, wheeze, rhonchi or dullness. Tachypneic, 30-40 breaths/min. No conversational dyspnea or accessory muscle use. CVS: S1 and S2 normal with distant heart sounds, no audible murmur, regular rhythm. No extra heart sounds ABDOMEN: Abdomen is distended, no bruising, active bowel sounds, facial grimacing with palpation but none localized to a specific location. No appreciated organomegaly. SPINE: No scoliosis or deformity SKIN: No rashes. Generalized pallor. CENTRAL NERVOUS SYSTEM: No focal deficits, tone is normal in all 4 extremities. EXTREMITIES: There is 2-3+ bilateral pedal edema. No clubbing, or cyanosis. Peripheral pulses are intact. Results - Laboratory Findings CBC and BMP: 09/24/23 23:32 09/24/23 11:02 ABG ABG pH 7.48 (7.35-7.45) H 09/24/23 21:33 ABG pCO2 23 mmHg (35-45) L 09/24/23 21:33 ABG pO2 50 mmHg (83-108) L* 09/24/23 21:33 ABG O2 Saturation 88.8 % (94-97) L 09/24/23 21:33 PT/INR, D-dimer PT 11.2 sec (10.0-12.5) 09/16/23 03:49 INR 1.0 (<1.2) 09/16/23 03:49 Abnormal lab findings: Abnormal Labs 09/11/23 09/11/23 09/12/23 17:02 17:02 08:13 WBC 3.7 L RBC 2.73 L Hgb 8.5 L Hct 26.2 L MCV MCHC RDW 19.8 H Plt Count Lymphocytes # 0.7 L Lymphocytes # (Manual) Metamyelocytes # (Man) Myelocytes # (Manual) Macrocytosis APTT ABG pH ABG pCO2 ABG pO2 ABG HCO3 ABG O2 Saturation Sodium 128 L 128 L Potassium 2.7 L* Chloride Carbon Dioxide 20 L 20 L BUN Creatinine 0.50 L 0.51 L POC Glucose (mg/dL) Calcium 6.7 L 8.0 L Ionized Calcium Kristyn Magnesium 1.1 L 1.5 L C-Reactive Protein Total Protein 4.3 L Total Protein (PEP) Albumin 1.8 L Albumin (PEP) Oifui-9-Audowkchu Gamma Globulins Vitamin D 25-Hydroxy Procalcitonin IgG IgA IgM Free [place] LC, Quant 09/13/23 09/13/23 09/13/23 07:31 07:31 07:31 WBC 2.6 L RBC 2.68 L Hgb 8.5 L Hct 27.2 L MCV 101.4 H D MCHC RDW 19.5 H Plt Count Lymphocytes # 0.4 L Lymphocytes # (Manual) Metamyelocytes # (Man) Myelocytes # (Manual) Macrocytosis APTT ABG pH ABG pCO2 ABG pO2 ABG HCO3 ABG O2 Saturation Sodium 130 L Potassium Chloride Carbon Dioxide 16 L BUN Creatinine 0.43 L POC Glucose (mg/dL) Calcium 7.6 L Ionized Calcium Kristyn Magnesium 1.4 L C-Reactive Protein Total Protein Total Protein (PEP) Albumin Albumin (PEP) Dorft-7-Elaftqezw Gamma Globulins Vitamin D 25-Hydroxy Procalcitonin 0.21 H IgG IgA IgM Free [place] LC, Quant 09/14/23 09/14/23 09/15/23 06:53 06:53 09:38 WBC RBC 2.78 L Hgb 8.4 L Hct 27.6 L MCV MCHC 30.6 L RDW 19.4 H Plt Count Lymphocytes # Lymphocytes # (Manual) Metamyelocytes # (Man) Myelocytes # (Manual) Macrocytosis APTT ABG pH ABG pCO2 ABG pO2 ABG HCO3 ABG O2 Saturation Sodium 129 L 130 L Potassium Chloride Carbon Dioxide 20 L 17 L BUN 4 L 3 L Creatinine 0.48 L 0.43 L POC Glucose (mg/dL) Calcium 7.8 L 7.6 L Ionized Calcium Kristyn Magnesium 1.4 L 1.4 L C-Reactive Protein Total Protein Total Protein (PEP) Albumin Albumin (PEP) Yggqy-1-Xnkhtknrn Gamma Globulins Vitamin D 25-Hydroxy Procalcitonin IgG IgA IgM Free [place] LC, Quant 09/15/23 09/16/23 09/16/23 09:38 03:49 03:49 WBC 3.5 L 3.3 L RBC 2.66 L 2.73 L Hgb 8.1 L 8.6 L Hct 26.6 L 27.1 L MCV MCHC 30.5 L RDW 19.6 H 19.4 H Plt Count Lymphocytes # 0.5 L Lymphocytes # (Manual) Metamyelocytes # (Man) Myelocytes # (Manual) Macrocytosis APTT ABG pH ABG pCO2 ABG pO2 ABG HCO3 ABG O2 Saturation Sodium 129 L Potassium 3.3 L Chloride Carbon Dioxide BUN 2 L Creatinine 0.40 L POC Glucose (mg/dL) Calcium 7.5 L Ionized Calcium Kristyn Magnesium C-Reactive Protein Total Protein Total Protein (PEP) Albumin Albumin (PEP) Agxzi-0-Wkbxzzofg Gamma Globulins Vitamin D 25-Hydroxy Procalcitonin IgG IgA IgM Free [place] LC, Quant 09/16/23 09/17/23 09/17/23 21:59 06:01 06:01 WBC 3.3 L RBC 2.59 L Hgb 8.1 L Hct 25.6 L MCV MCHC RDW 19.7 H Plt Count Lymphocytes # 0.4 L Lymphocytes # (Manual) Metamyelocytes # (Man) Myelocytes # (Manual) Macrocytosis APTT 33.1 H 145.2 H* ABG pH ABG pCO2 ABG pO2 ABG HCO3 ABG O2 Saturation Sodium Potassium Chloride Carbon Dioxide BUN Creatinine POC Glucose (mg/dL) Calcium Ionized Calcium Kristyn Magnesium C-Reactive Protein Total Protein Total Protein (PEP) Albumin Albumin (PEP) Fvzsl-7-Gbqhsiynq Gamma Globulins Vitamin D 25-Hydroxy Procalcitonin IgG IgA IgM Free [place] LC, Quant 09/17/23 09/17/23 09/18/23 06:01 18:40 08:21 WBC RBC Hgb Hct MCV MCHC RDW Plt Count Lymphocytes # Lymphocytes # (Manual) Metamyelocytes # (Man) Myelocytes # (Manual) Macrocytosis APTT 39.7 H ABG pH ABG pCO2 ABG pO2 ABG HCO3 ABG O2 Saturation Sodium 130 L 129 L Potassium 3.1 L 3.4 L Chloride Carbon Dioxide 19 L 19 L BUN 2 L 3 L Creatinine 0.47 L 0.36 L POC Glucose (mg/dL) Calcium 6.7 L 6.1 L* Ionized Calcium Kristyn Magnesium 1.3 L C-Reactive Protein Total Protein 4.1 L Total Protein (PEP) Albumin 1.7 L Albumin (PEP) Glcuj-8-Pgqtvnthc Gamma Globulins Vitamin D 25-Hydroxy Procalcitonin IgG IgA IgM Free [place] LC, Quant 09/18/23 09/18/23 09/18/23 08:21 13:40 23:34 WBC 2.9 L RBC 2.40 L Hgb 7.5 L Hct 24.0 L MCV MCHC RDW 20.3 H Plt Count Lymphocytes # 0.5 L Lymphocytes # (Manual) Metamyelocytes # (Man) Myelocytes # (Manual) Macrocytosis APTT 63.4 H ABG pH ABG pCO2 ABG pO2 ABG HCO3 ABG O2 Saturation Sodium Potassium Chloride Carbon Dioxide BUN Creatinine POC Glucose (mg/dL) Calcium Ionized Calcium Kristyn Magnesium C-Reactive Protein 7.1 H Total Protein Total Protein (PEP) Albumin Albumin (PEP) Pblmg-1-Rrjjuaczd Gamma Globulins Vitamin D 25-Hydroxy Procalcitonin IgG IgA IgM Free [place] LC, Quant 09/19/23 09/19/23 09/19/23 07:40 07:40 07:40 WBC 3.0 L RBC 2.21 L Hgb 7.1 L Hct 22.7 L MCV 103.0 H MCHC RDW 20.9 H Plt Count Lymphocytes # Lymphocytes # (Manual) 0.39 L Metamyelocytes # (Man) 0.03 H Myelocytes # (Manual) 0.03 H Macrocytosis Marked A APTT 95.4 H ABG pH ABG pCO2 ABG pO2 ABG HCO3 ABG O2 Saturation Sodium 132 L Potassium 3.4 L Chloride 112 H Carbon Dioxide 18 L BUN <2 L Creatinine 0.34 L POC Glucose (mg/dL) Calcium 5.8 L* Ionized Calcium Kristyn Magnesium 1.5 L C-Reactive Protein Total Protein 3.6 L Total Protein (PEP) Albumin 1.4 L Albumin (PEP) Bankg-5-Ydoqkaxfu Gamma Globulins Vitamin D 25-Hydroxy Procalcitonin IgG IgA IgM Free [place] LC, Quant 09/19/23 09/19/23 09/19/23 17:41 17:41 17:41 WBC RBC Hgb Hct MCV MCHC RDW Plt Count Lymphocytes # Lymphocytes # (Manual) Metamyelocytes # (Man) Myelocytes # (Manual) Macrocytosis APTT 50.2 H ABG pH ABG pCO2 ABG pO2 ABG HCO3 ABG O2 Saturation Sodium Potassium Chloride Carbon Dioxide BUN Creatinine POC Glucose (mg/dL) Calcium Ionized Calcium Kristyn 3.9 L Magnesium C-Reactive Protein Total Protein Total Protein (PEP) 4.3 L Albumin Albumin (PEP) 1.71 L Ycaif-2-Kvnfeczme 0.46 H Gamma Globulins 0.37 L Vitamin D 25-Hydroxy Procalcitonin IgG 617.0 L IgA IgM Free [place] LC, Quant 7.20 H 09/20/23 09/20/23 09/20/23 07:03 07:03 07:03 WBC 3.4 L RBC 2.45 L Hgb 7.6 L Hct 24.8 L MCV 101.2 H MCHC 30.4 L RDW 20.6 H Plt Count Lymphocytes # 0.6 L Lymphocytes # (Manual) Metamyelocytes # (Man) Myelocytes # (Manual) Macrocytosis APTT 74.0 H ABG pH ABG pCO2 ABG pO2 ABG HCO3 ABG O2 Saturation Sodium 134 L Potassium Chloride 111 H Carbon Dioxide 19 L BUN <2 L Creatinine 0.34 L POC Glucose (mg/dL) Calcium 6.2 L* Ionized Calcium Kristyn Magnesium C-Reactive Protein Total Protein Total Protein (PEP) Albumin Albumin (PEP) Hyoyf-6-Tpgihczct Gamma Globulins Vitamin D 25-Hydroxy Procalcitonin IgG IgA IgM Free [place] LC, Quant 09/20/23 09/20/23 09/21/23 14:01 14:01 09:51 WBC RBC 2.52 L Hgb 7.7 L Hct 27.6 L MCV 109.8 H D MCHC 28.0 L RDW 21.1 H Plt Count Lymphocytes # 0.4 L Lymphocytes # (Manual) Metamyelocytes # (Man) Myelocytes # (Manual) Macrocytosis Marked A APTT ABG pH ABG pCO2 ABG pO2 ABG HCO3 ABG O2 Saturation Sodium Potassium Chloride Carbon Dioxide BUN Creatinine POC Glucose (mg/dL) Calcium Ionized Calcium Kristyn 3.9 L Magnesium C-Reactive Protein Total Protein Total Protein (PEP) Albumin Albumin (PEP) Edsxd-0-Kgqazdkgu Gamma Globulins Vitamin D 25-Hydroxy Procalcitonin IgG IgA 637.0 H IgM <35.0 L Free [place] LC, Quant 09/21/23 09/22/23 09/22/23 09:51 09:50 09:50 WBC RBC 2.45 L Hgb 7.8 L Hct 24.6 L MCV 100.5 H D MCHC RDW 21.4 H Plt Count 137 L Lymphocytes # 0.5 L Lymphocytes # (Manual) Metamyelocytes # (Man) Myelocytes # (Manual) Macrocytosis APTT ABG pH ABG pCO2 ABG pO2 ABG HCO3 ABG O2 Saturation Sodium 132 L 134 L Potassium Chloride 112 H 115 H Carbon Dioxide 17 L 15 L BUN <2 L <2 L Creatinine 0.36 L 0.35 L POC Glucose (mg/dL) Calcium 6.0 L* 6.3 L* Ionized Calcium Kristyn Magnesium C-Reactive Protein Total Protein Total Protein (PEP) Albumin Albumin (PEP) Eslnw-5-Qunzncyxu Gamma Globulins Vitamin D 25-Hydroxy Procalcitonin IgG IgA IgM Free [place] LC, Quant 09/22/23 09/22/23 09/23/23 09:50 20:33 11:06 WBC RBC Hgb Hct MCV MCHC RDW Plt Count Lymphocytes # Lymphocytes # (Manual) Metamyelocytes # (Man) Myelocytes # (Manual) Macrocytosis APTT 150.1 H* 75.6 H 82.7 H ABG pH ABG pCO2 ABG pO2 ABG HCO3 ABG O2 Saturation Sodium Potassium Chloride Carbon Dioxide BUN Creatinine POC Glucose (mg/dL) Calcium Ionized Calcium Kristyn Magnesium C-Reactive Protein Total Protein Total Protein (PEP) Albumin Albumin (PEP) Sajib-8-Pvvvvufoo Gamma Globulins Vitamin D 25-Hydroxy Procalcitonin IgG IgA IgM Free [place] LC, Quant 09/23/23 09/23/23 09/24/23 11:06 17:59 10:00 WBC RBC Hgb Hct MCV MCHC RDW Plt Count Lymphocytes # Lymphocytes # (Manual) Metamyelocytes # (Man) Myelocytes # (Manual) Macrocytosis APTT 57.6 H ABG pH ABG pCO2 ABG pO2 ABG HCO3 ABG O2 Saturation Sodium 132 L Potassium 3.0 L Chloride 110 H Carbon Dioxide 16 L BUN 4 L Creatinine 0.37 L POC Glucose (mg/dL) Calcium 6.2 L* Ionized Calcium Kristyn Magnesium C-Reactive Protein Total Protein Total Protein (PEP) Albumin Albumin (PEP) Moubq-5-Adjpvqosg Gamma Globulins Vitamin D 25-Hydroxy 29.8 L Procalcitonin IgG IgA IgM Free [place] LC, Quant 09/24/23 09/24/23 09/24/23 11:02 11:02 11:02 WBC RBC 2.29 L Hgb 7.6 L Hct 23.2 L MCV 101.1 H MCHC RDW 21.9 H Plt Count 98 L Lymphocytes # 0.3 L Lymphocytes # (Manual) Metamyelocytes # (Man) Myelocytes # (Manual) Macrocytosis Marked A APTT 73.3 H ABG pH ABG pCO2 ABG pO2 ABG HCO3 ABG O2 Saturation Sodium 132 L Potassium Chloride 111 H Carbon Dioxide 16 L BUN 3 L Creatinine 0.43 L POC Glucose (mg/dL) Calcium 6.2 L* Ionized Calcium Kristyn Magnesium C-Reactive Protein Total Protein Total Protein (PEP) Albumin Albumin (PEP) Dnfgd-9-Jfdngxrxt Gamma Globulins Vitamin D 25-Hydroxy Procalcitonin IgG IgA IgM Free [place] LC, Quant 09/24/23 09/24/23 09/24/23 21:24 21:33 22:13 WBC RBC Hgb Hct MCV MCHC RDW Plt Count Lymphocytes # Lymphocytes # (Manual) Metamyelocytes # (Man) Myelocytes # (Manual) Macrocytosis APTT ABG pH 7.48 H ABG pCO2 23 L ABG pO2 50 L* ABG HCO3 17 L ABG O2 Saturation 88.8 L Sodium Potassium Chloride Carbon Dioxide BUN Creatinine POC Glucose (mg/dL) 119 H 128 H Calcium Ionized Calcium Kristyn Magnesium C-Reactive Protein Total Protein Total Protein (PEP) Albumin Albumin (PEP) Tgvzc-6-Stvlrtlvx Gamma Globulins Vitamin D 25-Hydroxy Procalcitonin IgG IgA IgM Free [place] LC, Quant 09/24/23 23:32 WBC RBC 2.17 L Hgb 7.3 L Hct 22.8 L MCV 104.8 H MCHC RDW 21.8 H Plt Count 78 L Lymphocytes # 0.4 L Lymphocytes # (Manual) Metamyelocytes # (Man) Myelocytes # (Manual) Macrocytosis Marked A APTT ABG pH ABG pCO2 ABG pO2 ABG HCO3 ABG O2 Saturation Sodium Potassium Chloride Carbon Dioxide BUN Creatinine POC Glucose (mg/dL) Calcium Ionized Calcium Kristyn Magnesium C-Reactive Protein Total Protein Total Protein (PEP) Albumin Albumin (PEP) Wgxau-3-Zcixhssde Gamma Globulins Vitamin D 25-Hydroxy Procalcitonin IgG IgA IgM Free [place] LC, Quant - Diagnostic Findings Chest x-ray: image reviewed Assessment and Plan Assessment: Acute hypoxemic respiratory failure, currently on 11 L high flow nasal cannula and will be transitioned to BiPAP. Follow-up chest x-ray showed interval development of bilateral hazy airspace disease, likely demonstrating worsening pulmonary edema, however, a inflammatory/infectious process was not entirely excluded. Follow-up NT proBNP 3360. Acute on chronic systolic heart failure, recent echocardiogram done 07/30/2023 estimated an impaired left ventricular ejection fraction of 40 to 45% as well as a small pericardial effusion. Hypotension, suspect sepsis/septic shock Osteomyelitis discitis of L2-L3 with superimposed L3 superior endplate fracture of 25%. Underwent CT-guided needle aspiration 09/18/2023 positive for Enteroba cter cloacae. Antibiotics being guided by infectious disease specialist. PICC line inserted by IR. Abdominal pain, follow-up abdominal/pelvis CT with contrast demonstrated a partial bowel obstruction involving the small bowel and colon to the level of the distal descending colon/proximal sigmoid colon secondary to inflammatory changes, suspicious for acute diverticulitis. There was also interval development of marked soft tissue edema in the lateral abdominal wall and right buttock. No discrete abscesses noted. Followed by general surgery, and is currently on the schedule for an exploratory laparotomy History of complicated hospital stay for neutropenic colitis/sigmoid colitis and neutropenic sepsis. Patient was treated for Enterobacter cloacae bacteremia. History of bowel obstruction Small to moderate-sized pericardial effusion Multiple myeloma, reportedly confirmed by biopsy at [facility], oncology is following, not started on treatment History of pulmonary embolism History of atrial fibrillation, anticoagulated chronically on Eliquis, which has been transitioned to heparin infusion Thrombocytopenia, trending down, rule out HIT Chronic anemia, hemoglobin appears at baseline Severe non-anion gap metabolic acidosis Multiple electrolyte abnormalities including hypocalcemia, hypophosphatemia, hypomagnesemia, hyponatremia History of anxiety/bipolar/depression Plan: Patient has been transferred to the intensive care unit. She remains in respiratory distress and has been transition to BiPAP with settings 10/5 and FiO2 to be titrated to maintain oxygen saturation of 92% or greater. She did receive a dose of Lasix. Monitor I's and O's. Following transfer to the intensive care unit, patient did become acutely hypotensive. Currently on norepinephrine infusion at 0.06 mcg/kg/min. Currently, has PICC line for intravenous access. Antibiotics are being directed by infectious disease specialist. Repeat blood cultures. Currently on IV heparin infusion per protocol. Thrombocytopenia continues to worsen. Check HIT panel. Being followed by oncology/hematology. Patient is being followed by general surgery for possible exploratory laparotomy, however, patient's condition has declined rapidly overnight. Monitor and replace electrolytes per protocol. Protonix for GI prophylaxis. Patient's overall prognosis remains extremely guarded secondary to the multiple above-mentioned comorbidities. Her respiratory status is labile, currently being placed on BiPAP. Hopefully she tolerates this therapy, but is high risk for requiring intubation. CODE STATUS is full code. Will continue to follow, and further recommendations are forthcoming I have personally seen and examined the patient, performed the documentation and the assessment and plan as written. Number of minutes spent on the visit:20 Time with Patient: Greater than 30
[2023-09-25] MEDS: DEXTROSE 5% IN WATER 1,000 ML with SODIUM BICARB (1 MEQ/ML) 150 ML IV SCH (05:05)
[2023-09-25] MEDS: HYDROCORTISONE SUCCINATE 100 MG/2 ML VIAL IV STA (06:52)
[2023-09-25] MEDS: MAGNESIUM SULFATE-D5W PMX 1 GM in DEXTROSE/WATER 1 100ML.BAG IVPB SCH (06:52)
[2023-09-25] MEDS ORDERED: MIDAZOLAM 2 MG/2 ML VIAL IV PRN (07:00)
--- NOTE | 2023-09-25 07:58 | P.PN ---
Subjective Progress Note Date: 09/25/23 CHIEF COMPLAINT: Bowel obstruction HISTORY OF PRESENT ILLNESS: The patient is a 63-year-old female presents with bowel obstruction. Last night, patient has been transferred from stepdown to intensive care unit last night. She has progressive respiratory distress and now on BiPAP. Patient is somnolent. She has a sitter at bedside. She has documented bowel movements. She is on heparin drip for pre-existing history of deep venous thrombosis/pulmonary embolism. ROS: No fevers or chills. No new chest pain. No productive sputum PHYSICAL EXAM: VITAL SIGNS: Reviewed CONSTITUTIONAL: Well developed and in no acute distress. EYES: Conjuctivae without sclera icterus. Extraocular movements grossly intact. HEAD, EARS, NOSE, THROAT: Moist buccal mucosa. Head is atraumatic, normocephalic. Hears conversational speech. No nasal drainage. RESPIRATORY: Respiratory distress on BiPAP. CARDIOVASCULAR: Palpable 2+ radial pulses. ABDOMEN: No diffuse peritonitis. Nontender. MUSCULOSKELETAL: No gross deformity of the lower extremities noted. No clubbing. No cyanosis. SKIN: Good skin turgor. Well perfused. NEUROLOGIC: Cranial nerves II through XII grossly intact. No focal or lateralizing signs. PSYCH: Appropriate affect. Alert and oriented to person, place and time. CLINICAL LABS: Reviewed. WBC normal. Hemoglobin 7.1, anemia. STUDIES: Chest x-ray independently reviewed demonstrates increased pulmonary infiltrates. Increased atelectasis. This is my independent interpretation. ASSESSMENT: 1. Recurrent bowel obstruction 2. History of breast cancer 3. Discitis. 4. Acute respiratory failure. 5. Moderate-sized pericardial effusion PLAN: 1. Patient is poor candidate to proceed with surgical intervention. Surgery is canceled. 2. Conservative management for intermittent partial bowel obstruction. 3. Will continue to monitor. Objective - Vital Signs Vital signs: Vital Signs Temp 98.2 F 09/25/23 06:00 Pulse 130 H 09/25/23 07:00 Resp 41 H 09/25/23 07:00 BP 115/61 09/25/23 07:00 Pulse Ox 99 09/25/23 07:00 FiO2 50 09/25/23 03:23 Intake & Output 09/24/23 09/25/23 09/25/23 18:59 06:59 18:59 Intake Total 191.788 3930.101 200 Output Total 1550 125 Balance 218.679 -156.899 75 Weight 73.7 kg Intake: Intake, IV Titration 154.367 3016.101 200 Amount Cefepime 2 gm In Sodium 100 Chloride 0.9% 100 ml @ 25 mls/hr IVPB Q8HR [facility] Rx# :[id number] Dextrose 5% in Water 1, 200 100 000 ml @ 100 mls/hr IV . [id number] [facility] with Sodium Bicarb (1 Meq/ml) 150 ml Rx#:[id number] Heparin Sod,Pork in 0.45% 218.679 71.395 NaCl 25,000 unit In 0.45 % NaCl 1 250ml.bag @ 12 UNITS/KG/HR 6.913 mls/hr IV .Q24H [facility] Rx#: [id number] Lactated Ringers 1,000 ml 80 @ 20 mls/hr IV .Q24H [facility] Rx#:[id number] Lactated Ringers 1,000 ml 20 @ 20 mls/hr IV .Q24H [facility] Rx#:[id number] Magnesium Sulfate-D5w Pmx 100 1 gm In Dextrose/Water 1 100ml.bag @ 100 mls/hr IVPB Q1H [facility] Rx#: [id number] Norepinephrine 4 mg In 251.706 Sodium Chloride 0.9% 250 ml @ 0.03 MCG/KG/MIN 6. 584 mls/hr IV .Q24H [facility] Rx#:[id number] Sodium Chloride 0.9% 1, 450 000 ml @ 75 mls/hr IV . [id number] [facility] Rx#:[id number] Vasopressin 20 unit In 20 Sodium Chloride 0.9% 50 ml @ 0.03 UNITS/MIN 4.59 mls/hr IV .Q11H7M [facility] Rx# :[id number] metroNIDAZOLE-NS PMX 500 200 mg In Saline 1 100ml.bag @ 100 mls/hr IVPB Q8H [facility] Rx#:[id number] Oral 0 Output: Urine 1550 125 Other: Voiding Method External Catheter Indwelling Catheter # Bowel Movements 2 0 - Labs CBC & Chem 7: 09/25/23 02:38 09/24/23 11:02 Labs: Abnormal Lab Results - Last 24 Hours (Table) 09/24/23 09/24/23 09/24/23 Range/Units 10:00 11:02 11:02 RBC (3.80-5.40) m/uL Hgb (11.4-16.0) gm/dL Hct (34.0-46.0) % MCV (80.0-100.0) fL MCHC (31.0-37.0) g/dL RDW (11.5-15.5) % Plt Count (150-450) k/uL Lymphocytes # (1.0-4.8) k/uL Macrocytosis APTT 73.3 H (22.0-30.0) sec ABG pH (7.35-7.45) ABG pCO2 (35-45) mmHg ABG pO2 (83-108) mmHg ABG HCO3 (21-25) mmol/L ABG O2 Saturation (94-97) % Sodium 132 L (137-145) mmol/L Chloride 111 H (98-107) mmol/L Carbon Dioxide 16 L (22-30) mmol/L BUN 3 L (7-17) mg/dL Creatinine 0.43 L (0.52-1.04) mg/dL POC Glucose (mg/dL) (70-110) mg/dL Plasma Lactic Acid Israel (0.7-2.0) mmol/L Calcium 6.2 L* (8.4-10.2) mg/dL Phosphorus (2.5-4.5) mg/dL Magnesium (1.6-2.3) mg/dL Vitamin D 25-Hydroxy 29.8 L (30.0-100.0) ng/mL 09/24/23 09/24/23 09/24/23 Range/Units 11:02 21:24 21:33 RBC 2.29 L (3.80-5.40) m/uL Hgb 7.6 L (11.4-16.0) gm/dL Hct 23.2 L (34.0-46.0) % MCV 101.1 H (80.0-100.0) fL MCHC (31.0-37.0) g/dL RDW 21.9 H (11.5-15.5) % Plt Count 98 L (150-450) k/uL Lymphocytes # 0.3 L (1.0-4.8) k/uL Macrocytosis Marked A APTT (22.0-30.0) sec ABG pH 7.48 H (7.35-7.45) ABG pCO2 23 L (35-45) mmHg ABG pO2 50 L* (83-108) mmHg ABG HCO3 17 L (21-25) mmol/L ABG O2 Saturation 88.8 L (94-97) % Sodium (137-145) mmol/L Chloride (98-107) mmol/L Carbon Dioxide (22-30) mmol/L BUN (7-17) mg/dL Creatinine (0.52-1.04) mg/dL POC Glucose (mg/dL) 119 H (70-110) mg/dL Plasma Lactic Acid Israel (0.7-2.0) mmol/L Calcium (8.4-10.2) mg/dL Phosphorus (2.5-4.5) mg/dL Magnesium (1.6-2.3) mg/dL Vitamin D 25-Hydroxy (30.0-100.0) ng/mL 09/24/23 09/24/23 09/25/23 Range/Units 22:13 23:32 02:38 RBC 2.17 L 2.26 L (3.80-5.40) m/uL Hgb 7.3 L 7.1 L (11.4-16.0) gm/dL Hct 22.8 L 24.5 L (34.0-46.0) % MCV 104.8 H 108.5 H (80.0-100.0) fL MCHC 29.0 L (31.0-37.0) g/dL RDW 21.8 H 21.9 H (11.5-15.5) % Plt Count 78 L 91 L (150-450) k/uL Lymphocytes # 0.4 L (1.0-4.8) k/uL Macrocytosis Marked A Marked A APTT (22.0-30.0) sec ABG pH (7.35-7.45) ABG pCO2 (35-45) mmHg ABG pO2 (83-108) mmHg ABG HCO3 (21-25) mmol/L ABG O2 Saturation (94-97) % Sodium (137-145) mmol/L Chloride (98-107) mmol/L Carbon Dioxide (22-30) mmol/L BUN (7-17) mg/dL Creatinine (0.52-1.04) mg/dL POC Glucose (mg/dL) 128 H (70-110) mg/dL Plasma Lactic Acid Israel (0.7-2.0) mmol/L Calcium (8.4-10.2) mg/dL Phosphorus (2.5-4.5) mg/dL Magnesium (1.6-2.3) mg/dL Vitamin D 25-Hydroxy (30.0-100.0) ng/mL 09/25/23 09/25/23 09/25/23 Range/Units 02:38 02:38 02:38 RBC (3.80-5.40) m/uL Hgb (11.4-16.0) gm/dL Hct (34.0-46.0) % MCV (80.0-100.0) fL MCHC (31.0-37.0) g/dL RDW (11.5-15.5) % Plt Count (150-450) k/uL Lymphocytes # (1.0-4.8) k/uL Macrocytosis APTT 85.6 H (22.0-30.0) sec ABG pH (7.35-7.45) ABG pCO2 (35-45) mmHg ABG pO2 (83-108) mmHg ABG HCO3 (21-25) mmol/L ABG O2 Saturation (94-97) % Sodium (137-145) mmol/L Chloride (98-107) mmol/L Carbon Dioxide (22-30) mmol/L BUN (7-17) mg/dL Creatinine (0.52-1.04) mg/dL POC Glucose (mg/dL) (70-110) mg/dL Plasma Lactic Acid Israel 4.9 H* (0.7-2.0) mmol/L Calcium (8.4-10.2) mg/dL Phosphorus 1.6 L (2.5-4.5) mg/dL Magnesium 1.5 L (1.6-2.3) mg/dL Vitamin D 25-Hydroxy (30.0-100.0) ng/mL 09/25/23 Range/Units 02:47 RBC (3.80-5.40) m/uL Hgb (11.4-16.0) gm/dL Hct (34.0-46.0) % MCV (80.0-100.0) fL MCHC (31.0-37.0) g/dL RDW (11.5-15.5) % Plt Count (150-450) k/uL Lymphocytes # (1.0-4.8) k/uL Macrocytosis APTT (22.0-30.0) sec ABG pH 7.34 L (7.35-7.45) ABG pCO2 28 L (35-45) mmHg ABG pO2 70 L (83-108) mmHg ABG HCO3 15 L (21-25) mmol/L ABG O2 Saturation 93.1 L (94-97) % Sodium (137-145) mmol/L Chloride (98-107) mmol/L Carbon Dioxide (22-30) mmol/L BUN (7-17) mg/dL Creatinine (0.52-1.04) mg/dL POC Glucose (mg/dL) (70-110) mg/dL Plasma Lactic Acid Israel (0.7-2.0) mmol/L Calcium (8.4-10.2) mg/dL Phosphorus (2.5-4.5) mg/dL Magnesium (1.6-2.3) mg/dL Vitamin D 25-Hydroxy (30.0-100.0) ng/mL
--- NOTE | 2023-09-25 08:11 | XR ---
EXAMINATION TYPE: XR chest 1V portable DATE OF EXAM: 09/25/2023 5:13 AM CLINICAL INDICATION:Female, 63 years old with history of Bipap dependent respiratory failure; [facility] COMPARISON: Chest radiographs from 09/24/2023 TECHNIQUE: XR chest 1V portable Frontal view of the chest. FINDINGS: Lungs/Pleura: There is no evidence of pleural effusion, focal consolidation, or pneumothorax. Pulmonary vascularity: Pulmonary vascular congestion. Heart/mediastinum: Cardiomediastinal silhouette is prominent in size. Musculoskeletal: No acute osseous pathology. IMPRESSION: Stable exam with persistent active pulmonary vascular congestion correlate.
--- NOTE | 2023-09-25 10:00 | CA ---
Transthoracic Echo Report Name: Soheila Sanchez Age: 63 Gender: F : 1960 Exam Date: 09/25/2023 08:27 Exam Location: [facility] Ht (in): 63 Wt (lb): 127 Ordering Physician: Alfredo Molina Attending/Referring Phys: [employer] Qiana Casas RDCS Procedure CPT: Indications: evaluate LV function Cardiac Hx: Technical Quality: Good Contrast 1: Total Dose (mL): Contrast 2: Total Dose (mL): MEASUREMENTS (Male / Female) Normal Values 2D ECHO LV Diastolic Diameter PLAX 5.4 cm 4.2 - 5.9 / 3.9 - 5.3 cm LV Systolic Diameter PLAX 3.7 cm IVS Diastolic Thickness 0.9 cm 0.6 - 1.0 / 0.6 - 0.9 cm LVPW Diastolic Thickness 1.1 cm 0.6 - 1.0 / 0.6 - 0.9 cm LV Relative Wall Thickness 0.4 RV Internal Dim ED PLAX 3.7 cm LA Systolic Diameter LX 3.4 cm 3.0 - 4.0 / 2.7 - 3.8 cm LV Diastolic Volume MOD BP 73.0 cm??? 67 - 155 / 56 - 104 cm??? LV Systolic Volume MOD BP 26.9 cm??? 22 - 58 / 19 - 49 cm??? LV Ejection Fraction MOD BP 63.2 % >= 55 % LV Cardiac Index MOD BP 3764.6 cm???/min???m??? LV Diastolic Volume MOD 4C 75.6 cm??? LV Systolic Volume MOD 4C 25.8 cm??? LV Ejection Fraction MOD 4C 65.9 % LV Cardiac Index MOD 4C 4065.3 cm???/min???m??? LV Diastolic Length 4C 6.8 cm LV Systolic Length 4C 5.6 cm LV Diastolic Volume MOD 2C 68.7 cm??? LV Systolic Volume MOD 2C 28.5 cm??? LV Ejection Fraction MOD 2C 58.5 % LV Cardiac Index MOD 2C 3281.2 cm???/min???m??? LV Diastolic Length 2C 6.6 cm LV Systolic Length 2C 5.7 cm LA Volume 43.2 cm??? 18 - 58 / 22 - 52 cm??? LA Volume Index 26.9 cm???/m??? 16 - 28 cm???/m??? DOPPLER AV Peak Velocity 168.1 cm/s AV Peak Gradient 11.3 mmHg FINDINGS Left Ventricle Left ventricular ejection fraction is estimated at 55-60 %. Mildly increased left ventricular diastolic diameter. No obvious regional wall motion abnormalities.left ventricular cavity size normal. Right Ventricle Mild right ventricular dilatation. Unable to estimate the right ventricular systolic pressure. Right Atrium Normal right atrial size. Left Atrium Normal left atrial size. Mitral Valve Structurally normal mitral valve. No mitral stenosis, or prolapse.trace to mild mitral regurgitation. Aortic Valve Trileaflet aortic valve. No aortic valve stenosis or regurgitation. Tricuspid Valve Structurally normal tricuspid valve. No tricuspid stenosis, or prolapse.trace to mild tricuspid regurgitation. Pulmonic Valve Pulmonic valve not well visualized. Pericardium Mild to moderate pericardial effusion by LV Aorta Normal size aortic root and proximal ascending aorta. CONCLUSIONS 1. Normal left ventricular size and systolic function 2. Trace to mild mitral and tricuspid regurgitation 3. Mild to moderate pericardial effusion Previewed by: Dr. Tamia Perla MD (Electronically Signed) Final Date: 25 Sep 2023 09:59
[2023-09-25 10:14] VITALS: TEMP 97.7
--- NOTE | 2023-09-25 10:33 | P.PN ---
Subjective Progress Note Date: 09/25/23 Principal diagnosis: Osteomyelitis, IgA K MM In f/u today pt is seen in the intensive care unit. She is on BiPAP, requiring vasopressors. Observing patient she looks uncomfortable Objective - Vital Signs Vital signs: Vital Signs Temp 97.7 F 09/25/23 08:00 Pulse 128 H 09/25/23 09:00 Resp 39 H 09/25/23 09:00 BP 97/44 09/25/23 09:00 Pulse Ox 95 09/25/23 09:00 FiO2 50 09/25/23 08:26 Intake & Output 09/24/23 09/25/23 09/25/23 18:59 06:59 18:59 Intake Total 072.356 2178.101 500 Output Total 1550 295 Balance 218.679 -156.899 205 Weight 73.7 kg Intake: Intake, IV Titration 293.372 8185.101 500 Amount Cefepime 2 gm In Sodium 100 Chloride 0.9% 100 ml @ 25 mls/hr IVPB Q8HR [facility] Rx# :[id number] Dextrose 5% in Water 1, 200 300 000 ml @ 100 mls/hr IV . [id number] [facility] with Sodium Bicarb (1 Meq/ml) 150 ml Rx#:[id number] Heparin Sod,Pork in 0.45% 218.679 71.395 NaCl 25,000 unit In 0.45 % NaCl 1 250ml.bag @ 12 UNITS/KG/HR 6.913 mls/hr IV .Q24H [facility] Rx#: [id number] Lactated Ringers 1,000 ml 80 @ 20 mls/hr IV .Q24H [facility] Rx#:[id number] Lactated Ringers 1,000 ml 20 @ 20 mls/hr IV .Q24H [facility] Rx#:[id number] Magnesium Sulfate-D5w Pmx 200 1 gm In Dextrose/Water 1 100ml.bag @ 100 mls/hr IVPB Q1H [facility] Rx#: [id number] Norepinephrine 4 mg In 251.706 Sodium Chloride 0.9% 250 ml @ 0.03 MCG/KG/MIN 6. 584 mls/hr IV .Q24H [facility] Rx#:[id number] Sodium Chloride 0.9% 1, 450 000 ml @ 75 mls/hr IV . [id number] [facility] Rx#:[id number] Vasopressin 20 unit In 20 Sodium Chloride 0.9% 50 ml @ 0.03 UNITS/MIN 4.59 mls/hr IV .Q11H7M [facility] Rx# :[id number] metroNIDAZOLE-NS PMX 500 200 mg In Saline 1 100ml.bag @ 100 mls/hr IVPB Q8H [facility] Rx#:[id number] Oral 0 Output: Urine 1550 295 Other: Voiding Method External Catheter Indwelling Catheter # Bowel Movements 2 0 - Exam Well-developed female laying in bed, requiring restraints for agitation, on BiPAP, abdomen is significantly distended, touching the abdomen patient cringes and guards. - Labs CBC & Chem 7: 09/25/23 02:38 09/24/23 11:02 Labs: Abnormal Lab Results - Last 24 Hours (Table) 09/24/23 09/24/23 09/24/23 Range/Units 10:00 11:02 11:02 RBC (3.80-5.40) m/uL Hgb (11.4-16.0) gm/dL Hct (34.0-46.0) % MCV (80.0-100.0) fL MCHC (31.0-37.0) g/dL RDW (11.5-15.5) % Plt Count (150-450) k/uL Lymphocytes # (1.0-4.8) k/uL Macrocytosis APTT 73.3 H (22.0-30.0) sec ABG pH (7.35-7.45) ABG pCO2 (35-45) mmHg ABG pO2 (83-108) mmHg ABG HCO3 (21-25) mmol/L ABG O2 Saturation (94-97) % Sodium 132 L (137-145) mmol/L Chloride 111 H (98-107) mmol/L Carbon Dioxide 16 L (22-30) mmol/L BUN 3 L (7-17) mg/dL Creatinine 0.43 L (0.52-1.04) mg/dL POC Glucose (mg/dL) (70-110) mg/dL Plasma Lactic Acid Israel (0.7-2.0) mmol/L Calcium 6.2 L* (8.4-10.2) mg/dL Phosphorus (2.5-4.5) mg/dL Magnesium (1.6-2.3) mg/dL Vitamin D 25-Hydroxy 29.8 L (30.0-100.0) ng/mL 09/24/23 09/24/23 09/24/23 Range/Units 11:02 21:24 21:33 RBC 2.29 L (3.80-5.40) m/uL Hgb 7.6 L (11.4-16.0) gm/dL Hct 23.2 L (34.0-46.0) % MCV 101.1 H (80.0-100.0) fL MCHC (31.0-37.0) g/dL RDW 21.9 H (11.5-15.5) % Plt Count 98 L (150-450) k/uL Lymphocytes # 0.3 L (1.0-4.8) k/uL Macrocytosis Marked A APTT (22.0-30.0) sec ABG pH 7.48 H (7.35-7.45) ABG pCO2 23 L (35-45) mmHg ABG pO2 50 L* (83-108) mmHg ABG HCO3 17 L (21-25) mmol/L ABG O2 Saturation 88.8 L (94-97) % Sodium (137-145) mmol/L Chloride (98-107) mmol/L Carbon Dioxide (22-30) mmol/L BUN (7-17) mg/dL Creatinine (0.52-1.04) mg/dL POC Glucose (mg/dL) 119 H (70-110) mg/dL Plasma Lactic Acid Israel (0.7-2.0) mmol/L Calcium (8.4-10.2) mg/dL Phosphorus (2.5-4.5) mg/dL Magnesium (1.6-2.3) mg/dL Vitamin D 25-Hydroxy (30.0-100.0) ng/mL 09/24/23 09/24/23 09/25/23 Range/Units 22:13 23:32 02:38 RBC 2.17 L 2.26 L (3.80-5.40) m/uL Hgb 7.3 L 7.1 L (11.4-16.0) gm/dL Hct 22.8 L 24.5 L (34.0-46.0) % MCV 104.8 H 108.5 H (80.0-100.0) fL MCHC 29.0 L (31.0-37.0) g/dL RDW 21.8 H 21.9 H (11.5-15.5) % Plt Count 78 L 91 L (150-450) k/uL Lymphocytes # 0.4 L (1.0-4.8) k/uL Macrocytosis Marked A Marked A APTT (22.0-30.0) sec ABG pH (7.35-7.45) ABG pCO2 (35-45) mmHg ABG pO2 (83-108) mmHg ABG HCO3 (21-25) mmol/L ABG O2 Saturation (94-97) % Sodium (137-145) mmol/L Chloride (98-107) mmol/L Carbon Dioxide (22-30) mmol/L BUN (7-17) mg/dL Creatinine (0.52-1.04) mg/dL POC Glucose (mg/dL) 128 H (70-110) mg/dL Plasma Lactic Acid Israel (0.7-2.0) mmol/L Calcium (8.4-10.2) mg/dL Phosphorus (2.5-4.5) mg/dL Magnesium (1.6-2.3) mg/dL Vitamin D 25-Hydroxy (30.0-100.0) ng/mL 09/25/23 09/25/23 09/25/23 Range/Units 02:38 02:38 02:38 RBC (3.80-5.40) m/uL Hgb (11.4-16.0) gm/dL Hct (34.0-46.0) % MCV (80.0-100.0) fL MCHC (31.0-37.0) g/dL RDW (11.5-15.5) % Plt Count (150-450) k/uL Lymphocytes # (1.0-4.8) k/uL Macrocytosis APTT 85.6 H (22.0-30.0) sec ABG pH (7.35-7.45) ABG pCO2 (35-45) mmHg ABG pO2 (83-108) mmHg ABG HCO3 (21-25) mmol/L ABG O2 Saturation (94-97) % Sodium (137-145) mmol/L Chloride (98-107) mmol/L Carbon Dioxide (22-30) mmol/L BUN (7-17) mg/dL Creatinine (0.52-1.04) mg/dL POC Glucose (mg/dL) (70-110) mg/dL Plasma Lactic Acid Israel 4.9 H* (0.7-2.0) mmol/L Calcium (8.4-10.2) mg/dL Phosphorus 1.6 L (2.5-4.5) mg/dL Magnesium 1.5 L (1.6-2.3) mg/dL Vitamin D 25-Hydroxy (30.0-100.0) ng/mL 09/25/23 09/25/23 Range/Units 02:47 08:42 RBC (3.80-5.40) m/uL Hgb (11.4-16.0) gm/dL Hct (34.0-46.0) % MCV (80.0-100.0) fL MCHC (31.0-37.0) g/dL RDW (11.5-15.5) % Plt Count (150-450) k/uL Lymphocytes # (1.0-4.8) k/uL Macrocytosis APTT (22.0-30.0) sec ABG pH 7.34 L (7.35-7.45) ABG pCO2 28 L (35-45) mmHg ABG pO2 70 L (83-108) mmHg ABG HCO3 15 L (21-25) mmol/L ABG O2 Saturation 93.1 L (94-97) % Sodium (137-145) mmol/L Chloride (98-107) mmol/L Carbon Dioxide (22-30) mmol/L BUN (7-17) mg/dL Creatinine (0.52-1.04) mg/dL POC Glucose (mg/dL) (70-110) mg/dL Plasma Lactic Acid Israel 6.3 H* (0.7-2.0) mmol/L Calcium (8.4-10.2) mg/dL Phosphorus (2.5-4.5) mg/dL Magnesium (1.6-2.3) mg/dL Vitamin D 25-Hydroxy (30.0-100.0) ng/mL Assessment and Plan (1) Discitis of lumbar region Current Visit: Yes Status: Acute Priority: High Code(s): M46.46 - DISCITIS, UNSPECIFIED, LUMBAR REGION SNOMED Code(s): 319625014 (2) Abdominal pain Current Visit: Yes Status: Acute Priority: High Code(s): R10.9 - UNSPECIFIED ABDOMINAL PAIN SNOMED Code(s): 61958617 (3) Multiple myeloma Current Visit: Yes Status: Acute Priority: High Code(s): C90.00 - MULTIPLE MYELOMA NOT HAVING ACHIEVED REMISSION SNOMED Code(s): 144620441 (4) Bicytopenia Current Visit: Yes Status: Acute Priority: Medium Code(s): D75.89 - OTHER SPECIFIED DISEASES OF BLOOD AND BLOOD-FORMING ORGANS SNOMED Code(s): 17537438 (5) Atrial fibrillation Current Visit: Yes Status: Acute Code(s): I48.91 - UNSPECIFIED ATRIAL FIBRILLATION SNOMED Code(s): 50138187 (6) History of pulmonary embolism Current Visit: Yes Status: Acute Code(s): Z86.711 - PERSONAL HISTORY OF PULMONARY EMBOLISM SNOMED Code(s): 305721683 Plan: Osteomyelitis, ileus -Pt has been seen by Infectious Disease. Antibiotics ordered -Patient has been seen by Orthopedic spine surgeon, no surgical interventions planned at this time. -Surgery following for ileus Bicytopenia -Secondary to acute infection as well as multiple myeloma -Hemoglobin stable 7.4 today. No transfusion at this time. Transfuse for hemoglobin less than 7 or if patient is symptomatic -Platelets 91,000 today. No acute intervention. IgA K MM -pt has not had treatment yet -Myeloma is not the direct cause for patient's decline in condition History of pulmonary embolism and atrial fibrillation -Patient has been on heparin drip while inpatient in case of possible procedures. -Agree with continuing heparin drip until plans for discharge then patient can resume her oral anticoagulation Notes reviewed. Case discussed with nursing. Patient is declining rapidly. She would likely require mechanical ventilation very soon. Critical care team is discussed the case with patient's family and the likelihood that patient would need to be transferred for tertiary care as she is unstable and is likely going to need surgical intervention. Patient family has opted for comfort care/hospice. Doctor attests: I have seen and examined pt, performed H&P, developed impression and plan of care. Discussed with dictator. I agree with documentation, dictated as a scribe.
[2023-09-25 11:14] VITALS: BMI 28.8
[2023-09-25] MEDS: HYDROmorphone 0.5 MG/0.5 ML SYRINGE IVP PRN (14:04)
[2023-09-25] MEDS ORDERED: ATROPINE OPHTH SOLN 1% 5ML BTL SUBLINGUAL PRN (16:05)
[2023-09-25] MEDS ORDERED: LORazepam 2 MG/ML INJ IV PRN (16:05)
--- NOTE | 2023-09-25 16:28 | P.PN ---
Subjective Progress Note Date: 09/24/23 Principal diagnosis: Reason for follow-up is ileus possible abdominal sepsis Patient is a 63-year-old female with a past medical history significant for atrial fibrillation reflux pulmonary embolism presenting to the hospital for evaluation of low sodium and potassium, patient did have evidence of ileus low-grade fever prompting this infectious disease consultation On today's evaluation that is 09/24/2023,the patient remains to be afebrile, patient is on 4 L nasal cannula supplemental oxygen and denies any shortness of breath no chest pain or cough.Patient denies has been complaint nausea and vomiting stopping abdominal distention and did not have any bowel movement and worsening lower back pain Patient white count is normal at 5.1 creatinine 0.43 Objective - Vital Signs Vital signs: Vital Signs Temp 99.5 F 09/24/23 14:00 Pulse 121 H 09/24/23 14:00 Resp 20 09/24/23 14:00 BP 94/53 09/24/23 14:00 Pulse Ox 93 L 09/24/23 14:00 FiO2 Intake & Output 09/23/23 09/24/23 09/24/23 18:59 06:59 18:59 Intake Total 500 Output Total 600 700 Balance -100 -700 Intake: Oral 500 Output: Urine 600 700 Other: Voiding Method External Catheter External Catheter External Catheter # Voids 1 # Bowel Movements 1 - Exam GENERAL DESCRIPTION: Middle-aged female lying in bed in no distress RESPIRATORY SYSTEM: Unlabored breathing , decreased breath sounds at bases HEART: S1 S2 regular rate and rhythm , ABDOMEN: Soft mild tenderness EXTREMITIES: No edema feet - Labs CBC & Chem 7: 09/25/23 02:38 09/24/23 11:02 Labs: Abnormal Lab Results - Last 24 Hours (Table) 09/19/23 09/23/23 09/24/23 Range/Units 17:41 17:59 10:00 RBC (3.80-5.40) m/uL Hgb (11.4-16.0) gm/dL Hct (34.0-46.0) % MCV (80.0-100.0) fL RDW (11.5-15.5) % Plt Count (150-450) k/uL Lymphocytes # (1.0-4.8) k/uL Macrocytosis APTT 57.6 H (22.0-30.0) sec Sodium (137-145) mmol/L Chloride (98-107) mmol/L Carbon Dioxide (22-30) mmol/L BUN (7-17) mg/dL Creatinine (0.52-1.04) mg/dL Calcium (8.4-10.2) mg/dL Albumin (PEP) 1.71 L (3.80-4.90) g/dL Liqko-6-Ldhfecrlb 0.46 H (0.10-0.40) g/dL Gamma Globulins 0.37 L (0.70-1.50) g/dL Vitamin D 25-Hydroxy 29.8 L (30.0-100.0) ng/mL 09/24/23 09/24/23 09/24/23 Range/Units 11:02 11:02 11:02 RBC 2.29 L (3.80-5.40) m/uL Hgb 7.6 L (11.4-16.0) gm/dL Hct 23.2 L (34.0-46.0) % MCV 101.1 H (80.0-100.0) fL RDW 21.9 H (11.5-15.5) % Plt Count 98 L (150-450) k/uL Lymphocytes # 0.3 L (1.0-4.8) k/uL Macrocytosis Marked A APTT 73.3 H (22.0-30.0) sec Sodium 132 L (137-145) mmol/L Chloride 111 H (98-107) mmol/L Carbon Dioxide 16 L (22-30) mmol/L BUN 3 L (7-17) mg/dL Creatinine 0.43 L (0.52-1.04) mg/dL Calcium 6.2 L* (8.4-10.2) mg/dL Albumin (PEP) (3.80-4.90) g/dL Vmoeg-3-Apbozkyfd (0.10-0.40) g/dL Gamma Globulins (0.70-1.50) g/dL Vitamin D 25-Hydroxy (30.0-100.0) ng/mL Microbiology - Last 24 Hours (Table) 09/18/23 13:40 Blood Culture - Final Blood Assessment and Plan (1) SIRS (systemic inflammatory response syndrome) Current Visit: Yes Status: Acute Code(s): R65.10 - SIRS OF NON-INFECTIOUS ORIGIN W/O ACUTE ORGAN DYSFUNCTION SNOMED Code(s): 846727901 (2) Leukopenia Current Visit: Yes Status: Acute Code(s): D72.819 - DECREASED WHITE BLOOD CELL COUNT, UNSPECIFIED SNOMED Code(s): 32490604 (3) Discitis of lumbar region Current Visit: Yes Status: Acute Priority: High Code(s): M46.46 - DISCITIS, UNSPECIFIED, LUMBAR REGION SNOMED Code(s): 825209635 Plan: 1patient presented to hospital with abnormal electrolytes did have some nausea vomiting and abdominal pain CT abdominal pelvis has been suggestive of ileus patient did have leukopenia and a low-grade fever, dealing mostly with the ileus questionably mechanical keeping in mind significant leukopenia and low-grade fever, patient is currently covered with cefepime and Flagyl, general surgery following the patient closely may need surgical intervention if persistent problems with the ileus 2-patient MRI of the lumbosacral spine suspicious for possible discitis/osteomyelitis discussed with the spine surgery recommending IR aspiration for biopsy has been completed cultures are currently growing gram- negative bacilli which has been identified as Enterobacter 3- patient did get a PICC line on 09/23/2023 and we will continue the patient on cefepime Dictation was produced using [employer] dictation software. please excuse any grammatical, word or spelling errors. Time with Patient: Less than 30
[2023-09-25] MEDS: MORPHINE SULFATE (100 MG/2 ML) 100 MG in SODIUM CHLORIDE 0.9% 100 ML IV SCH (16:33)
[2023-09-25] MEDS: LORazepam 1 MG/0.5 ML VIAL IV PRN (16:46)
[2023-09-25 16:55] VITALS: BP 110/66; PULSE 118; RESP 30
[2023-09-25] MEDS ORDERED: ARTIFICIAL TEARS-HYPROMELLOSE DROPS 15 ML BTL BOTH EYES ONE (18:25)
--- NOTE | 2023-10-02 17:56 | CDI ---
Documentation Clarification Form Date: 10/02/2023 04:59:14 PM From: Kesha Quick RN, CCDS Phone: [phone] Admit Date: 09/11/2023 06:56:00 PM Patient Name: Soheila Sanchez Visit Number: [id number] Discharge Date: 09/25/2023 07:13:00 PM ATTENTION: The Clinical Documentation Specialists (CDI) and [facility] Coding Staff appreciate your assistance in clarifying documentation. Please respond to the clarification below the line at the bottom and electronically sign. The CDI & [facility] Coding staff will review the response and follow-up if needed. Please note: Queries are made part of the Legal Health Record. If you have any questions, please contact the author of this message via ITS. Dr. Alfredo Molina Conflicting documentation has been found in the medical record. Please provide clarification. 09/24 Pulmonary consult: Acute on chronic systolic heart failure, recent echocardiogram done 07/30/2023 estimated an impaired left ventricular ejection fraction of 40 to 45% as well as a small pericardial effusion. 09/24 Echocardiogram: Left ventricular ejection fraction is estimated at 55-60% Trace to mild mitral and tricuspid regurgitation. Mild to moderate pericardial effusion History/Risk Factors: GERD/Reflux, Pulmonary Embolus, chronic systolic heart failure, Chronic fibrillation, Current every day smoker Clinical Indicators: 63-year-old white female to ED on 09/11/2023 for some abnormal lab values drawn outpatient. Findings acute diverticulitis. 09/25/23 A rapid response was initiated. CXR worsening pulmonary edema. On exam, there is third spacing and she appears in a positive fluid balance. She is fatigued and anxious appearing. Tachypneic, 30-40 breaths/min. 09/24 Labs (00:00) BNP 3340 Mg 1.5, ABG: pH 7.34 pco2 28, po2 70, HCO3 15 09/24 CXR: Stable exam with persistent active pulmonary vascular congestion correlate. 09/24 VS (01:20) 87/52 135 38 91% 13L High Flow Treatment: ICU/Telemetry monitoring BiPAP with setting 10/5 and FiO2 to be titrated to O2 sat's of 92% or greater Lasix 40 MG IV Once 09/24 Monitor I's and O's Please clarify which diagnosis is most appropriate: [ x ] Acute on Chronic Diastolic heart Failure with 09/24 echocardiogram Left ventricular ejection fraction is estimated at 55-60% [ ] Other (please specify) [ ] Unable to determine (Template Last Revised: July 2020) MTDD
--- NOTE | 2023-10-10 11:17 | P.DS ---
Providers Date of admission: 09/11/23 18:56 Attending physician: Kitty Blanco Consults: 09/12/23 07:43 Consult Physician Routine Consulting Provider: Aarti Swann Consult Reason/Comments: abd pain Do you want consulting provider notified?: Yes 09/13/23 10:00 Consult Physician Routine Consulting Provider: Di Maria Consult Reason/Comments: Sepsis, intra-abdominal source suspect Do you want consulting provider notified?: Yes 09/13/23 12:40 Consult Physician Routine Consulting Provider: Yaya Peace Consult Reason/Comments: known pt., follow up Do you want consulting provider notified?: Yes 09/14/23 12:43 Consult Physician Routine Consulting Provider: Daniel Nolasco Consult Reason/Comments: Low back pain with pathological fracture, evaluate for biopsy and kyphoplas Do you want consulting provider notified?: Yes 09/24/23 21:58 Consult Physician Routine Consulting Provider: Chad Sterling Consult Reason/Comments: icu management Do you want consulting provider notified?: Already Contacted Primary care physician: Stated None Hospital Course: Diagnoses: Acute gastroenteritis, acute diverticulitis with partial small bowel obstruction Shock secondary to hypovolemia, improved, still have borderline hypotension Bowel obstruction, partial and acute Lytic lesions lumbar spine with pathological fracture, L3-L4 spinal stenosis, MRI with concerns of osteomyelitis and discitis in that area status post needle aspiration with interventional radiology on 09/18/2023, L3 compression fraction of superior endplate Multiple myeloma with hypogammaglobulinemia, s/p IgG transfusion Fluid overload with bilateral pleural effusion left more than right and moderate pericardial effusion and leg edema CT of the abdomen showing right abdominal wall edema, cellulitis versus hematoma, however on inspection no discoloration, no significant tenderness pancytopenia History of chronic systolic heart failure ejection fraction of 40 to 45% Chronic atrial fibrillation on anticoagulation History of pulmonary embolism on anticoagulation Chronic back pain Gait dysfunction, medical debility History of cholecystectomy as per patient Hospital course: 63 years old female with past medical history of multiple medical problems as below including history of bipolar and schizophrenia, history of pulmonary embolism on Eliquis, patient was recently in the hospitalized in this facility about once days for acute Neutropenic sepsis,she was discharged to [facility] also she has been treated for bowel obstruction and she has been followed by surgery team with Dr. Maynard at that time. Patient states that she has history of chronic back pain and difficulty walking for the last 2 months also, she states it is in the lumbar 3 and lumbar 4 spine vertebrae Patient was sent from [facility] because of abnormal labs and low potassium and sodium, patient states that they checked it routinely. Patient is hemodynamically stable and afebrile Labs showed low sodium 128 low potassium 2.8 and low magnesium 1.1 She has chronic leukopenia and currently 3.7, chronic anemia currently 8.5 at baseline LFTs unremarkable EKG shows sinus rhythm at [address]-T changes 09/19/2023 --patient denies any fever or any chills, patient is breathing comfortably on room air, the patient denies chest pain shortness of breath and no significant cough, patient did have removal of the NG and she did have bowel movement and has been started on a diet with the patient has been tolerating Patient white count of 2.9 creatinine 0.36 -patient presented to hospital with abnormal electrolytes did have some nausea vomiting and abdominal pain CT abdominal pelvis has been suggestive of ileus patient did have leukopenia and a low-grade fever, dealing mostly with the ileus questionably mechanical keeping in mind significant leukopenia and low-grade fever we will need to cover for enteric gram-negative both aerobes and anaerobes -patient MRI of the lumbosacral spine suspicious for possible discitis/osteomyelitis discussed with the spine surgery recommending IR aspiration for biopsy which was completed this morning results will be followed -patient is covered with Rocephin and Flagyl discharge antibiotic on the basis of final culture 09/20/2023 She is seen and evaluated with family members at bedside; continues to report uncontrolled pain Vital signs are reviewed stable with temperature of 98.5, pulse 93, respirations 16 and blood pressure of 89/53 WBC 3.4, hemoglobin 7.6 and platelet count of 171, sodium 134, potassium 3.6, BU Ns/creatinine 2/0.34 blood glucose of 87 CT-guided aspiration from lumbar spine reveals gram-negative bacilli, sensitivities pending; ID recommending to discontinue Rocephin and patient is placed on IV cefepime with recommendations for PICC line and IV antibiotic therapy as an outpatient 09/21/2023 Patient is seen and evaluated in room at bedside; continues to report left lower quadrant pain which is slightly worse compared to yesterday Vital signs are stable with temperature of 98.2, pulse 101, respiration 18 and blood pressure of 96/60 -General surgery on board and recommending to proceed with CT of the abdomen to rule out intra-abdominal pathology -CT of the abdomen reveals interval development of small bilateral pulm effusions and bilateral lower lobe infiltrates; stable moderate pericardial effusion; partial bowel obstruction involving small bowel and colon to the level of the distal descending colon/proximal sigmoid colon secondary to inflammatory changes, consistent with acute diverticulitis; interval of marked soft tissue edema and lateral abdominal wall and right buttock area no discrete abscess seen. -Patient remains on IV antibiotics in form of cefepime and Flagyl for d iscitis/osteomyelitis; antibiotics will give coverage for developing acute diverticulitis -Surgery team has been paged for partial SBO 09/22/2023 Patient is awake and alert Complains from abdominal pain and back pain related to her discitis of L2-L3. Also patient suspected to have diverticular disease causing her abdominal pain. She has partial bowel obstruction. Surgery team is planning for colonoscopy which was held because patient was hypotensive. Patient has been hypotensive throughout this admission. Patient remains on normal saline 75 mL/h and she got boluses, she got fluid overload and she is concerned about her swollen feet. IV Lasix 40 mg was held, we will going to lower the dose to 20 mg tomorrow Patient remains on heparin drip while Eliquis on hold for her history of pulmon wilfrido embolism She got PICC line with plan for IV cefepime upon discharge Currently she is on IV Flagyl and cefepime 09/24/2023 Patient awake alert, she is still complaining from abdominal pain and back pain Her abdomen is mildly distended She could not eat because of nausea Blood pressure is on the low side, she already received normal saline, also she is on midodrine 10 mg 3 times daily. We will add albumin infusion x 2 to help support her blood pressure. Surgery team on the case. Colonoscopy was canceled yesterday because of hypertension. Will continue with broad-spectrum antibiotic on IV cefepime and Flagyl 09/25/2023 Patient deteriorated overnight requiring more breathing treatment and she was hypoxic. Also blood pressure was on the low side. Surgery was already been consult for her bowel problem. patient moved to the ICU after rapid response team evaluated the patient. Also patient evaluated by pulmonary/critical care team. Patient was started on vasopressors including vasopressin and norepinephrine for blood pressure support which is improved. Patient also placed on BiPAP for respiratory support. Patient did continue to deteriorate despite this. Patient continued on IV antibiotics cefepime and Flagyl. However patient continued deteriorate and eventually . Looks like also Patient family has opted for comfort care/hospice. Patient Condition at Discharge: Stable Plan - Discharge Summary Discharge Rx Participant: No New Discharge Prescriptions: No Action ALPRAZolam [Xanax] 1 mg PO TID PRN PRN Reason: Anxiety Omeprazole 40 mg PO DAILY Apixaban [Eliquis] 5 mg PO BID methocarbamoL [Robaxin] 500 mg PO Q8H PRN PRN Reason: Muscle Spasm Acetaminophen Tab [Tylenol] 650 mg PO Q4H PRN PRN Reason: Fever And/ Or Pain Potassium Chloride ER [K-Dur 10] 10 meq PO DAILY Lactulose [Cephulac] 10 gm PO BID Cholecalciferol [Vitamin D3 (125 Mcg = 5000 Iu)] 125 mcg PO DAILY Amiodarone [Cordarone] 200 mg PO DAILY OXcarbazepine [Trileptal] 300 mg PO Q8H QUEtiapine [SEROquel] 1,200 mg PO HS Cyanocobalamin (Vitamin B-12) [Vitamin B-12] 1,000 mcg PO DAILY oxyCODONE-APAP 5-325MG [Percocet 5-325 mg] 1 tab PO TID Discharge Medication List ALPRAZolam [Xanax] 1 mg PO TID PRN 05/25/22 [History] OXcarbazepine [Trileptal] 300 mg PO Q8H 05/25/22 [History] Apixaban [Eliquis] 5 mg PO BID 03/08/23 [History] Cyanocobalamin (Vitamin B-12) [Vitamin B-12] 1,000 mcg PO DAILY 03/08/23 [History] Omeprazole 40 mg PO DAILY 03/08/23 [History] QUEtiapine [SEROquel] 1,200 mg PO HS 03/08/23 [History] methocarbamoL [Robaxin] 500 mg PO Q8H PRN 07/29/23 [History] Acetaminophen Tab [Tylenol] 650 mg PO Q4H PRN 09/11/23 [History] Amiodarone [Cordarone] 200 mg PO DAILY 09/11/23 [History] Cholecalciferol [Vitamin D3 (125 Mcg = 5000 Iu)] 125 mcg PO DAILY 09/11/23 [History] Lactulose [Cephulac] 10 gm PO BID 09/11/23 [History] Potassium Chloride ER [K-Dur 10] 10 meq PO DAILY 09/11/23 [History] oxyCODONE-APAP 5-325MG [Percocet 5-325 mg] 1 tab PO TID 09/11/23 [History] Follow up Appointment(s)/Referral(s): Yaya Peace MD [STAFF PHYSICIAN] - 4 Weeks (Call for appt 4-6 weeks from now to discuss multiple myeloma ) Victorino Holbrook PAC [PHYSICIAN TABLE LEVER OPERATOR] - 2 Weeks (Patient may follow-up with Victorino Holbrook PA-C or Dr. Roberto Nolasco at [facility] in 2-3 weeks following discharge. ) None,Stated [Primary Care Provider] - 1-2 days Activity/Diet/Wound Care/Special Instructions: 1. Patient may wear LSO brace for comfort and support while sitting upright at greater than 45, while working with therapy, and while ambulating; patient does not have to wear the brace while lying in bed or bathing 2. Patient should avoid excessive bending, twisting, and lifting; no lifting greater than 10 pounds Discharge Disposition: - Preliminary Cause of Preliminary Cause of : intra-abdominal infection & bowel obstruction related to multipl e myeloma
--- NOTE | 2023-10-13 03:23 | P.PN ---
Subjective 63 years old female with past medical history of multiple medical problems as below including history of bipolar and schizophrenia, history of pulmonary embolism on Eliquis, patient was recently in the hospitalized in this facility about once days for acute Neutropenic sepsis,she was discharged to [facility] also she has been treated for bowel obstruction and she has been followed by surgery team with Dr. Maynard at that time. Patient states that she has history of chronic back pain and difficulty walking for the last 2 months also, she states it is in the lumbar 3 and lumbar 4 spine vertebrae Patient was sent from [facility] because of abnormal labs and low potassium and sodium, patient states that they checked it routinely. Patient is hemodynamically stable and afebrile Labs showed low sodium 128 low potassium 2.8 and low magnesium 1.1 She has chronic leukopenia and currently 3.7, chronic anemia currently 8.5 at baseline LFTs unremarkable EKG shows sinus rhythm at [address]-T changes 09/19/2023 --patient denies any fever or any chills, patient is breathing comfortably on room air, the patient denies chest pain shortness of breath and no significant cough, patient did have removal of the NG and she did have bowel movement and has been started on a diet with the patient has been tolerating Patient white count of 2.9 creatinine 0.36 -patient presented to hospital with abnormal electrolytes did have some nausea vomiting and abdominal pain CT abdominal pelvis has been suggestive of ileus patient did have leukopenia and a low-grade fever, dealing mostly with the ileus questionably mechanical keeping in mind significant leukopenia and low-grade fever we will need to cover for enteric gram-negative both aerobes and anaerobes -patient MRI of the lumbosacral spine suspicious for possible discitis/osteomyelitis discussed with the spine surgery recommending IR aspiration for biopsy which was completed this morning results will be followed -patient is covered with Rocephin and Flagyl discharge antibiotic on the basis of final culture 09/20/2023 She is seen and evaluated with family members at bedside; continues to report uncontrolled pain Vital signs are reviewed stable with temperature of 98.5, pulse 93, respirations 16 and blood pressure of 89/53 WBC 3.4, hemoglobin 7.6 and platelet count of 171, sodium 134, potassium 3.6, BUNs/creatinine 2/0.34 blood glucose of 87 CT-guided aspiration from lumbar spine reveals gram-negative bacilli, sensitivities pending; ID recommending to discontinue Rocephin and patient is placed on IV cefepime with recommendations for PICC line and IV antibiotic therapy as an outpatient 09/21/2023 Patient is seen and evaluated in room at bedside; continues to report left lower quadrant pain which is slightly worse compared to yesterday Vital signs are stable with temperature of 98.2, pulse 101, respiration 18 and blood pressure of 96/60 -General surgery on board and recommending to proceed with CT of the abdomen to rule out intra-abdominal pathology -CT of the abdomen reveals interval development of small bilateral pulm effusions and bilateral lower lobe infiltrates; stable moderate pericardial effusion; partial bowel obstruction involving small bowel and colon to the level of the distal descending colon/proximal sigmoid colon secondary to inflammatory changes, consistent with acute diverticulitis; interval of marked soft tissue edema and lateral abdominal wall and right buttock area no discrete abscess seen. -Patient remains on IV antibiotics in form of cefepime and Flagyl for discitis/osteomyelitis; antibiotics will give coverage for developing acute diverticulitis -Surgery team has been paged for partial SBO 09/22/2023 Patient is awake and alert Complains from abdominal pain and back pain related to her discitis of L2-L3. Also patient suspected to have diverticular disease causing her abdominal pain. She has partial bowel obstruction. Surgery team is planning for colonoscopy which was held because patient was hypotensive. Patient has been hypotensive throughout this admission. Patient remains on normal saline 75 mL/h and she got boluses, she got fluid overload and she is concerned about her swollen feet. IV Lasix 40 mg was held, we will going to lower the dose to 20 mg tomorrow Patient remains on heparin drip while Eliquis on hold for her history of pulmonary embolism She got PICC line with plan for IV cefepime upon discharge Currently she is on IV Flagyl and cefepime 09/24/2023 Patient awake alert, she is still complaining from abdominal pain and back pain Her abdomen is mildly distended She could not eat because of nausea Blood pressure is on the low side, she already received normal saline, also she is on midodrine 10 mg 3 times daily. We will add albumin infusion x 2 to help support her blood pressure. Surgery team on the case. Colonoscopy was canceled yesterday because of hypotension. Will continue with broad-spectrum antibiotic on IV cefepime and Flagyl 09/25/2023 pt remain clinially the same , lethargic blood pressure is still on the low side, albumin iv fluid is given as pt has edema , also on iv fluid normal saline and midodrine surgery team are following closely pt remains on iv antibiotics as per ID team Review of systems CONSTITUTIONAL: No fever, no malaise, no fatigue. HEENT: No recent visual problems or hearing problems. Denied any sore throat. CARDIOVASCULAR: No orthopnea, PND, no palpitations, no syncope. PULMONARY: No shortness of breath, no cough, no hemoptysis. HEMATOLOGICAL: Denies any bleeding or petechiae. GENITOURINARY: Denies any burning micturition, frequency, or urgency. Patient also on heparin drip for her history of PE. Monique is on hold Active Medications Generic Name Dose Route Start Last Admin Trade Name Freq PRN Reason Stop Dose Admin Acetaminophen 650 mg 09/11/23 18:55 09/20/23 03:32 Acetaminophen Tab 325 Mg Tab PO 650 mg Q6HR PRN Administration Mild Pain or Fever > 100.5 Alprazolam 0.5 mg 09/14/23 22:02 09/22/23 01:53 Alprazolam 0.5 Mg Tab PO 0.5 mg TID PRN Administration Anxiety Amiodarone HCl 200 mg 09/12/23 09:00 09/24/23 11:00 Amiodarone 200 Mg Tab PO 200 mg DAILY MARIE Administration Benzocaine/Menthol 1 each 09/15/23 17:08 09/15/23 17:13 Benzocaine/Menthol Lozeng 1 Each Lozenge MUCOUS MEM 1 each Q4HR PRN Administration Sore Throat Calcium Carbonate 1 each 09/23/23 17:30 09/24/23 06:19 Calcium Carb-Vit D 500 Mg-5 Mcg Tab PO 1 each TID-W/MEALS MARIE Administration Cholecalciferol 125 mcg 09/12/23 09:00 09/24/23 11:01 Cholecalciferol 125 Mcg (5000 Iu) Tablet PO 125 mcg DAILY MARIE Administration Cholestyramine Resin 4 gm 09/19/23 18:00 09/23/23 17:25 Cholestyramine (With Sugar) 4 Gm Packet PO Not Given BID@1000,1800 MARIE Cyanocobalamin 1,000 mcg 09/12/23 09:00 09/24/23 11:01 Cyanocobalamin 500 Mcg Tab PO 1,000 mcg DAILY MARIE Administration Heparin Sodium (Porcine) 0 unit 09/15/23 21:00 09/16/23 23:49 Heparin Sodium 1,000 Un/Ml (10ml Vl) IV 2,850 unit PER PROTOCOL PRN Administration Low PTT Protocol Sodium Chloride 1,000 mls @ 75 mls/hr 09/11/23 17:45 09/24/23 02:52 Saline 0.9% IV Not Given .[id number] MARIE Metronidazole 500 mg/ IV 100 mls @ 100 mls/hr 09/12/23 15:00 09/24/23 06:19 Solution IVPB 100 mls/hr Q8H MARIE Administration Protocol Heparin Sodium/Sodium Chloride 250 mls @ 6.913 mls/hr 09/15/23 21:00 09/23/23 21:23 25,000 unit/ Sodium Chloride IV Not Given .Q24H MARIE Protocol 12 UNITS/KG/HR Cefepime HCl 2 gm/ Sodium 100 mls @ 25 mls/hr 09/20/23 09:30 09/24/23 11:01 Chloride IVPB 25 mls/hr Q8HR MARIE Administration Protocol Lactated Ringer's 1,000 mls @ 20 mls/hr 09/23/23 07:45 09/23/23 07:59 Lactated Ringers IV Not Given .Q24H MARIE Albumin Human 50 ml/ IV 50 mls @ 50 mls/hr 09/24/23 12:00 Solution IVPB 09/24/23 13:59 Q1H MARIE Lidocaine 1 patch 09/16/23 21:00 09/23/23 21:23 Lidocaine 4% Patch TOPICAL 1 patch HS MARIE Administration Protocol Magnesium Oxide 400 mg 09/18/23 21:00 09/24/23 11:00 Magnesium Oxide 400 Mg Tab PO 400 mg BID MARIE Administration Methocarbamol 500 mg 09/11/23 20:29 09/21/23 22:33 Methocarbamol 500 Mg Tab PO 500 mg Q8H PRN Administration Muscle Spasm Midodrine 10 mg 09/18/23 20:22 09/24/23 06:19 Midodrine 5 Mg Tab PO 10 mg AC-TID MARIE Administration Miscellaneous Information 1 each 09/17/23 09:42 Magnesium Replacement Protocol 1 Each Misc MISCELLANE DAILY PRN Per Protocol Protocol Miscellaneous Information 1 each 09/17/23 09:42 Potassium Replacement Protocol 1 Each Mis MISCELLANE DAILY PRN Per Protocol Protocol Morphine Sulfate 4 mg 09/14/23 13:21 09/23/23 23:21 Morphine Sulfate 4 Mg/Ml Syringe IVP 2 mg Q4HR PRN Administration Pain Naloxone HCl 0.2 mg 09/11/23 18:55 Naloxone 0.4 Mg/Ml 1 Ml Vial IV Q2M PRN Opioid Reversal Ondansetron HCl 4 mg 09/11/23 20:29 09/24/23 06:22 Ondansetron 4 Mg/2 Ml Vial IVP 4 mg Q6HR PRN Administration Nausea And Vomiting Oxcarbazepine 300 mg 09/11/23 21:00 09/24/23 11:04 Oxcarbazepine 300 Mg Tab PO 300 mg Q8HR MARIE Administration Oxycodone/Acetaminophen 1 each 09/11/23 22:00 09/24/23 11:00 Oxycodone-Apap 5-325mg 1 Each Tab PO 1 each TID MARIE Administration Pantoprazole Sodium 40 mg 09/11/23 21:00 09/23/23 21:22 Pantoprazole 40 Mg/10 Ml Vial IVP 40 mg BID MARIE Administration Petrolatum 1 applic 09/17/23 00:21 Zinc Oxide Paste (Z-Guard) 1 Applic TOPICAL DAILY PRN Skin Irritation Protocol Potassium Chloride 10 meq 09/12/23 09:00 09/23/23 08:25 Potassium Chloride Er 10 Meq Tab.Er.Prt PO 10 meq DAILY MARIE Administration Quetiapine Fumarate 1,200 mg 09/11/23 21:00 09/23/23 23:22 Quetiapine 400 Mg Tab PO 1,200 mg HS MARIE Administration Scopolamine 1 patch 09/15/23 10:00 09/21/23 08:52 Scopolamine 1 Mg/72 Hr Patch TRANSDERM 1 patch Q72H MARIE Administration Objective - Vital Signs Vital signs: Vital Signs Temp 98.2 F 09/25/23 06:00 Pulse 130 H 09/25/23 07:00 Resp 41 H 09/25/23 07:00 BP 115/61 09/25/23 07:00 Pulse Ox 99 09/25/23 07:00 FiO2 50 09/25/23 08:26 Intake & Output 09/24/23 09/25/23 09/25/23 18:59 06:59 18:59 Intake Total 966.568 7428.101 200 Output Total 1550 125 Balance 218.679 -156.899 75 Weight 73.7 kg Intake: Intake, IV Titration 020.618 3780.101 200 Amount Cefepime 2 gm In Sodium 100 Chloride 0.9% 100 ml @ 25 mls/hr IVPB Q8HR MARIE Rx# :[id number] Dextrose 5% in Water 1, 200 100 000 ml @ 100 mls/hr IV . [id number] MAREI with Sodium Bicarb (1 Meq/ml) 150 ml Rx#:[id number] Heparin Sod,Pork in 0.45% 218.679 71.395 NaCl 25,000 unit In 0.45 % NaCl 1 250ml.bag @ 12 UNITS/KG/HR 6.913 mls/hr IV .Q24H MARIE Rx#: [id number] Lactated Ringers 1,000 ml 80 @ 20 mls/hr IV .Q24H [facility] Rx#:[id number] Lactated Ringers 1,000 ml 20 @ 20 mls/hr IV .Q24H [facility] Rx#:[id number] Magnesium Sulfate-D5w Pmx 100 1 gm In Dextrose/Water 1 100ml.bag @ 100 mls/hr IVPB Q1H [facility] Rx#: [id number] Norepinephrine 4 mg In 251.706 Sodium Chloride 0.9% 250 ml @ 0.03 MCG/KG/MIN 6. 584 mls/hr IV .Q24H MARIE Rx#:[id number] Sodium Chloride 0.9% 1, 450 000 ml @ 75 mls/hr IV . [id number] [facility] Rx#:[id number] Vasopressin 20 unit In 20 Sodium Chloride 0.9% 50 ml @ 0.03 UNITS/MIN 4.59 mls/hr IV .[id number] MARIE Rx# :[id number] metroNIDAZOLE-NS PMX 500 200 mg In Saline 1 100ml.bag @ 100 mls/hr IVPB Q8H MARIE Rx#:[id number] Oral 0 Output: Urine 1550 125 Other: Voiding Method External Catheter Indwelling Catheter # Bowel Movements 2 0 - Exam GENERAL: The patient is alert and oriented x3, not in any acute distress. Well developed, well nourished. HEENT: Pupils are round and equally reacting to light. EOMI. No scleral icterus. No conjunctival pallor. Normocephalic, atraumatic. No pharyngeal erythema. No thyromegaly. CARDIOVASCULAR: S1 and S2 present. No murmurs, rubs, or gallops. PULMONARY: Chest is clear to auscultation, no wheezing , no crackles. ABDOMEN: Soft, nontender, nondistended, normoactive bowel sounds. No palpable organomegaly. MUSCULOSKELETAL: No joint swelling or deformity. EXTREMITIES: No cyanosis, clubbing, or pedal edema. NEUROLOGICAL: Gross neurological examination did not reveal any focal deficits. SKIN: No rashes. no petechiae. - Labs CBC & Chem 7: 09/25/23 02:38 09/24/23 11:02 Labs: Abnormal Lab Results - Last 24 Hours (Table) 09/24/23 09/24/23 09/24/23 Range/Units 10:00 11:02 11:02 RBC (3.80-5.40) m/uL Hgb (11.4-16.0) gm/dL Hct (34.0-46.0) % MCV (80.0-100.0) fL MCHC (31.0-37.0) g/dL RDW (11.5-15.5) % Plt Count (150-450) k/uL Lymphocytes # (1.0-4.8) k/uL Macrocytosis APTT 73.3 H (22.0-30.0) sec ABG pH (7.35-7.45) ABG pCO2 (35-45) mmHg ABG pO2 (83-108) mmHg ABG HCO3 (21-25) mmol/L ABG O2 Saturation (94-97) % Sodium 132 L (137-145) mmol/L Chloride 111 H (98-107) mmol/L Carbon Dioxide 16 L (22-30) mmol/L BUN 3 L (7-17) mg/dL Creatinine 0.43 L (0.52-1.04) mg/dL POC Glucose (mg/dL) (70-110) mg/dL Plasma Lactic Acid [place] (0.7-2.0) mmol/L Calcium 6.2 L* (8.4-10.2) mg/dL Phosphorus (2.5-4.5) mg/dL Magnesium (1.6-2.3) mg/dL Vitamin D 25-Hydroxy 29.8 L (30.0-100.0) ng/mL 09/24/23 09/24/23 09/24/23 Range/Units 11:02 21:24 21:33 RBC 2.29 L (3.80-5.40) m/uL Hgb 7.6 L (11.4-16.0) gm/dL Hct 23.2 L (34.0-46.0) % MCV 101.1 H (80.0-100.0) fL MCHC (31.0-37.0) g/dL RDW 21.9 H (11.5-15.5) % Plt Count 98 L (150-450) k/uL Lymphocytes # 0.3 L (1.0-4.8) k/uL Macrocytosis Marked A APTT (22.0-30.0) sec ABG pH 7.48 H (7.35-7.45) ABG pCO2 23 L (35-45) mmHg ABG pO2 50 L* (83-108) mmHg ABG HCO3 17 L (21-25) mmol/L ABG O2 Saturation 88.8 L (94-97) % Sodium (137-145) mmol/L Chloride (98-107) mmol/L Carbon Dioxide (22-30) mmol/L BUN (7-17) mg/dL Creatinine (0.52-1.04) mg/dL POC Glucose (mg/dL) 119 H (70-110) mg/dL Plasma Lactic Acid [place] (0.7-2.0) mmol/L Calcium (8.4-10.2) mg/dL Phosphorus (2.5-4.5) mg/dL Magnesium (1.6-2.3) mg/dL Vitamin D 25-Hydroxy (30.0-100.0) ng/mL 09/24/23 09/24/23 09/25/23 Range/Units 22:13 23:32 02:38 RBC 2.17 L 2.26 L (3.80-5.40) m/uL Hgb 7.3 L 7.1 L (11.4-16.0) gm/dL Hct 22.8 L 24.5 L (34.0-46.0) % MCV 104.8 H 108.5 H (80.0-100.0) fL MCHC 29.0 L (31.0-37.0) g/dL RDW 21.8 H 21.9 H (11.5-15.5) % Plt Count 78 L 91 L (150-450) k/uL Lymphocytes # 0.4 L (1.0-4.8) k/uL Macrocytosis Marked A Marked A APTT (22.0-30.0) sec ABG pH (7.35-7.45) ABG pCO2 (35-45) mmHg ABG pO2 (83-108) mmHg ABG HCO3 (21-25) mmol/L ABG O2 Saturation (94-97) % Sodium (137-145) mmol/L Chloride (98-107) mmol/L Carbon Dioxide (22-30) mmol/L BUN (7-17) mg/dL Creatinine (0.52-1.04) mg/dL POC Glucose (mg/dL) 128 H (70-110) mg/dL Plasma Lactic Acid [place] (0.7-2.0) mmol/L Calcium (8.4-10.2) mg/dL Phosphorus (2.5-4.5) mg/dL Magnesium (1.6-2.3) mg/dL Vitamin D 25-Hydroxy (30.0-100.0) ng/mL 09/25/23 09/25/23 09/25/23 Range/Units 02:38 02:38 02:38 RBC (3.80-5.40) m/uL Hgb (11.4-16.0) gm/dL Hct (34.0-46.0) % MCV (80.0-100.0) fL MCHC (31.0-37.0) g/dL RDW (11.5-15.5) % Plt Count (150-450) k/uL Lymphocytes # (1.0-4.8) k/uL Macrocytosis APTT 85.6 H (22.0-30.0) sec ABG pH (7.35-7.45) ABG pCO2 (35-45) mmHg ABG pO2 (83-108) mmHg ABG HCO3 (21-25) mmol/L ABG O2 Saturation (94-97) % Sodium (137-145) mmol/L Chloride (98-107) mmol/L Carbon Dioxide (22-30) mmol/L BUN (7-17) mg/dL Creatinine (0.52-1.04) mg/dL POC Glucose (mg/dL) (70-110) mg/dL Plasma Lactic Acid Israel 4.9 H* (0.7-2.0) mmol/L Calcium (8.4-10.2) mg/dL Phosphorus 1.6 L (2.5-4.5) mg/dL Magnesium 1.5 L (1.6-2.3) mg/dL Vitamin D 25-Hydroxy (30.0-100.0) ng/mL 09/25/23 Range/Units 02:47 RBC (3.80-5.40) m/uL Hgb (11.4-16.0) gm/dL Hct (34.0-46.0) % MCV (80.0-100.0) fL MCHC (31.0-37.0) g/dL RDW (11.5-15.5) % Plt Count (150-450) k/uL Lymphocytes # (1.0-4.8) k/uL Macrocytosis APTT (22.0-30.0) sec ABG pH 7.34 L (7.35-7.45) ABG pCO2 28 L (35-45) mmHg ABG pO2 70 L (83-108) mmHg ABG HCO3 15 L (21-25) mmol/L ABG O2 Saturation 93.1 L (94-97) % Sodium (137-145) mmol/L Chloride (98-107) mmol/L Carbon Dioxide (22-30) mmol/L BUN (7-17) mg/dL Creatinine (0.52-1.04) mg/dL POC Glucose (mg/dL) (70-110) mg/dL Plasma Lactic Acid [place] (0.7-2.0) mmol/L Calcium (8.4-10.2) mg/dL Phosphorus (2.5-4.5) mg/dL Magnesium (1.6-2.3) mg/dL Vitamin D 25-Hydroxy (30.0-100.0) ng/mL Assessment and Plan Assessment: possible Acute gastroenteritis versus or exacerbated by bowel preparation for colonoscopy Suprapubic pain tenderness increased frequency of urination. Rule out UTI chronic back pain and difficulty walking for the last 2 months Atrial fibrillation on Eliquis pulmonary embolism, currently on Eliquis at home Patient history of neutropenic colitis and sigmoid colitis with pancytopenia and bacteremia secondary to Enterobacter cloacae. Schizophrenia, bipolar disorder, currently not an active issue History of bowel resection and cholecystectomy Acute gastroenteritis, acute diverticulitis with partial small bowel obstruction Shock secondary to hypovolemia, improved, still have borderline hypotension Bowel obstruction, partial and acute Lytic lesions lumbar spine with pathological fracture, L3-L4 spinal stenosis, MRI with concerns of osteomyelitis and discitis in that area status post needle aspiration with interventional radiology on 09/18/2023, L3 compression fraction of superior endplate Multiple myeloma with hypogammaglobulinemia, s/p IgG transfusion Fluid overload with bilateral pleural effusion left more than right and moderate pericardial effusion and leg edema CT of the abdomen showing right abdominal wall edema, cellulitis versus hematoma, however on inspection no discoloration, no significant tenderness pancytopenia History of chronic systolic heart failure ejection fraction of 40 to 45% Chronic atrial fibrillation on anticoagulation History of pulmonary embolism on anticoagulation Chronic back pain Gait dysfunction, medical debility History of cholecystectomy as per patient Plan: Continue with antibiotic, currently on IV cefepime and Flagyl Eliquis on hold and currently on heparin drip Continue with normal saline 75 mL/h for borderline hypotension. Give albumin x 2. DC Lasix General surgery following for bowel obstruction and diverticulitis Continue with IV Protonix twice daily ID team and hematology/oncology team on the case Labs and medication were reviewed.. Continue same treatment. Continue with symptomatic treatment. Resume home medication. Monitor labs and vitals. DVT and GI prophylaxis. Further recommendations as per clinical course of the patient DVT prophylaxis: heparin GI Prophylaxis: Ppi PT/OT: Will benefit from ECF, [facility] Prognosis is guarded
--- NOTE | 2023-11-09 16:35 | P.PN ---
Subjective Progress Note Date: 09/25/23 Principal diagnosis: Reason for follow-up is ileus possible abdominal sepsis Patient is a 63-year-old female with a past medical history significant for atrial fibrillation reflux pulmonary embolism presenting to the hospital for evaluation of low sodium and potassium, patient did have evidence of ileus low-grade fever prompting this infectious disease consultation On today's evaluation that is 09/25/2023, the patient did have significant change in her clinical condition patient become hypotensive and respiratory distress for the patient be transferred out of the ICU patient is currently on high-dose pressor support also on a BiPAP with 80% FiO2 patient remains to be lethargic likely procedure provide any history. Patient white count is 7.4 no BMP was done lactic acid 6.3 Objective - Vital Signs Vital signs: Vital Signs Temp 97.7 F 09/25/23 08:00 Pulse 128 H 09/25/23 11:00 Resp 41 H 09/25/23 11:00 BP 109/47 09/25/23 11:00 Pulse Ox 91 L 09/25/23 11:00 FiO2 60 09/25/23 11:02 Intake & Output 09/24/23 09/25/23 09/25/23 18:59 06:59 18:59 Intake Total 285.005 7358.101 900 Output Total 1550 505 Balance 218.679 -156.899 395 Weight 73.7 kg 73.7 kg Intake: Intake, IV Titration 058.609 5844.101 900 Amount Cefepime 2 gm In Sodium 100 Chloride 0.9% 100 ml @ 25 mls/hr IVPB Q8HR MARIE Rx# :[id number] Dextrose 5% in Water 1, 200 600 000 ml @ 100 mls/hr IV . [id number] MARIE with Sodium Bicarb (1 Meq/ml) 150 ml Rx#:[id number] Heparin Sod,Pork in 0.45% 218.679 71.395 NaCl 25,000 unit In 0.45 % NaCl 1 250ml.bag @ 12 UNITS/KG/HR 6.913 mls/hr IV .Q24H MARIE Rx#: [id number] Lactated Ringers 1,000 ml 80 @ 20 mls/hr IV .Q24H MARIE Rx#:[id number] Lactated Ringers 1,000 ml 20 100 @ 20 mls/hr IV .Q24H MARIE Rx#:[id number] Magnesium Sulfate-D5w Pmx 200 1 gm In Dextrose/Water 1 100ml.bag @ 100 mls/hr IVPB Q1H MARIE Rx#: [id number] Norepinephrine 4 mg In 251.706 Sodium Chloride 0.9% 250 ml @ 0.03 MCG/KG/MIN 6. 584 mls/hr IV .Q24H MARIE Rx#:[id number] Sodium Chloride 0.9% 1, 450 000 ml @ 75 mls/hr IV . [id number] MARIE Rx#:[id number] Vasopressin 20 unit In 20 Sodium Chloride 0.9% 50 ml @ 0.03 UNITS/MIN 4.59 mls/hr IV .Q11H7M MARIE Rx# :[id number] metroNIDAZOLE-NS PMX 500 200 mg In Saline 1 100ml.bag @ 100 mls/hr IVPB Q8H MARIE Rx#:[id number] Oral 0 Output: Urine 1550 505 Other: Voiding Method External Catheter Indwelling Catheter Indwelling Catheter # Bowel Movements 2 0 - Labs CBC & Chem 7: 09/25/23 02:38 09/24/23 11:02 Labs: Abnormal Lab Results - Last 24 Hours (Table) 09/24/23 09/24/23 09/24/23 Range/Units 10:00 11:02 21:24 RBC (3.80-5.40) m/uL Hgb (11.4-16.0) gm/dL Hct (34.0-46.0) % MCV (80.0-100.0) fL MCHC (31.0-37.0) g/dL RDW (11.5-15.5) % Plt Count 98 L (150-450) k/uL Lymphocytes # 0.3 L (1.0-4.8) k/uL Macrocytosis APTT (22.0-30.0) sec ABG pH (7.35-7.45) ABG pCO2 (35-45) mmHg ABG pO2 (83-108) mmHg ABG HCO3 (21-25) mmol/L ABG O2 Saturation (94-97) % POC Glucose (mg/dL) 119 H (70-110) mg/dL Plasma Lactic Acid [place] (0.7-2.0) mmol/L Phosphorus (2.5-4.5) mg/dL Magnesium (1.6-2.3) mg/dL Vitamin D 25-Hydroxy 29.8 L (30.0-100.0) ng/mL 09/24/23 09/24/23 09/24/23 Range/Units 21:33 22:13 23:32 RBC 2.17 L (3.80-5.40) m/uL Hgb 7.3 L (11.4-16.0) gm/dL Hct 22.8 L (34.0-46.0) % MCV 104.8 H (80.0-100.0) fL MCHC (31.0-37.0) g/dL RDW 21.8 H (11.5-15.5) % Plt Count 78 L (150-450) k/uL Lymphocytes # 0.4 L (1.0-4.8) k/uL Macrocytosis Marked A APTT (22.0-30.0) sec ABG pH 7.48 H (7.35-7.45) ABG pCO2 23 L (35-45) mmHg ABG pO2 50 L* (83-108) mmHg ABG HCO3 17 L (21-25) mmol/L ABG O2 Saturation 88.8 L (94-97) % POC Glucose (mg/dL) 128 H (70-110) mg/dL Plasma Lactic Acid [place] (0.7-2.0) mmol/L Phosphorus (2.5-4.5) mg/dL Magnesium (1.6-2.3) mg/dL Vitamin D 25-Hydroxy (30.0-100.0) ng/mL 09/25/23 09/25/23 09/25/23 Range/Units 02:38 02:38 02:38 RBC 2.26 L (3.80-5.40) m/uL Hgb 7.1 L (11.4-16.0) gm/dL Hct 24.5 L (34.0-46.0) % MCV 108.5 H (80.0-100.0) fL MCHC 29.0 L (31.0-37.0) g/dL RDW 21.9 H (11.5-15.5) % Plt Count 91 L (150-450) k/uL Lymphocytes # (1.0-4.8) k/uL Macrocytosis Marked A APTT (22.0-30.0) sec ABG pH (7.35-7.45) ABG pCO2 (35-45) mmHg ABG pO2 (83-108) mmHg ABG HCO3 (21-25) mmol/L ABG O2 Saturation (94-97) % POC Glucose (mg/dL) (70-110) mg/dL Plasma Lactic Acid [place] 4.9 H* (0.7-2.0) mmol/L Phosphorus 1.6 L (2.5-4.5) mg/dL Magnesium 1.5 L (1.6-2.3) mg/dL Vitamin D 25-Hydroxy (30.0-100.0) ng/mL 09/25/23 09/25/23 09/25/23 Range/Units 02:38 02:47 08:42 RBC (3.80-5.40) m/uL Hgb (11.4-16.0) gm/dL Hct (34.0-46.0) % MCV (80.0-100.0) fL MCHC (31.0-37.0) g/dL RDW (11.5-15.5) % Plt Count (150-450) k/uL Lymphocytes # (1.0-4.8) k/uL Macrocytosis APTT 85.6 H (22.0-30.0) sec ABG pH 7.34 L (7.35-7.45) ABG pCO2 28 L (35-45) mmHg ABG pO2 70 L (83-108) mmHg ABG HCO3 15 L (21-25) mmol/L ABG O2 Saturation 93.1 L (94-97) % POC Glucose (mg/dL) (70-110) mg/dL Plasma Lactic Acid [place] 6.3 H* (0.7-2.0) mmol/L Phosphorus (2.5-4.5) mg/dL Magnesium (1.6-2.3) mg/dL Vitamin D 25-Hydroxy (30.0-100.0) ng/mL Assessment and Plan (1) SIRS (systemic inflammatory response syndrome) Current Visit: Yes Status: Acute Code(s): R65.10 - SIRS OF NON-INFECTIOUS ORIGIN W/O ACUTE ORGAN DYSFUNCTION SNOMED Code(s): 025113200 (2) Leukopenia Current Visit: Yes Status: Acute Code(s): D72.819 - DECREASED WHITE BLOOD CELL COUNT, UNSPECIFIED SNOMED Code(s): 26956836 (3) Discitis of lumbar region Current Visit: Yes Status: Acute Priority: High Code(s): M46.46 - DISCITIS, UNSPECIFIED, LUMBAR REGION SNOMED Code(s): 077649283 Plan: 1patient presented to hospital with abnormal electrolytes did have some nausea vomiting and abdominal pain CT abdominal pelvis has been suggestive of ileus patient did have leukopenia and a low-grade fever, dealing mostly with the ileus questionably mechanical keeping in mind significant leukopenia and low-grade fever, patient is currently covered with cefepime and Flagyl, general surgery following the patient closely and has canceled surgery because of her worsening respiratory status apparently pulmonary has talked with the patient and consider the patient to be high risk and poor prognosis family is leaning more towards hospice which may be appropriate 2-patient MRI of the lumbosacral spine suspicious for possible discitis/osteomyelitis status post IR aspiration culture positive for Enterobacter, patient is covered with the cefepime Flagyl however the plan for hospice antibiotics can be safely discontinued Discussed plan with the nursing staff Dictation was produced using [employer] dictation software. please excuse any grammatical, word or spelling errors.
== END 2023-09-25 19:13 | disposition expired | DRG 691 ==
LOC: EC 16:00 → 3SCARD 18:56 → 2SICU 09-24 22:07
PROVIDERS: ADMIT Hospitalist; ATTEND Hospitalist
PROC: 0Q903ZX Drainage of Lumbar Vertebra, Percutaneous Approach, Diagnostic (ICD-10-PCS; 2023-09-18)
PROC: 05HC33Z Insertion of Infusion Device into Left Basilic Vein, Percutaneous Approach (ICD-10-PCS; 2023-09-23)
PROC: 02HV33Z Insertion of Infusion Device into Superior Vena Cava, Percutaneous Approach (ICD-10-PCS; principal; 2023-09-23 08:00)
PROC: B5181ZA Fluoroscopy of Superior Vena Cava using Low Osmolar Contrast, Guidance (ICD-10-PCS; principal; 2023-09-23 08:00)
PROC: B548ZZA Ultrasonography of Superior Vena Cava, Guidance (ICD-10-PCS; principal; 2023-09-23 08:00)
PROC: 3E033XZ Introduction of Vasopressor into Peripheral Vein, Percutaneous Approach (ICD-10-PCS; 2023-09-25)
PROC: 5A09357 Assistance with Respiratory Ventilation, Less than 24 Consecutive Hours, Continuous Positive Airway Pressure (ICD-10-PCS; 2023-09-25)
DX: C90.00 Multiple myeloma not having achieved remission (principal); K56.690 Other partial intestinal obstruction; K52.9 Noninfective gastroenteritis and colitis, unspecified; K57.92 Diverticulitis of intestine, part unspecified, without perforation or abscess without bleeding; I11.0 Hypertensive heart disease with heart failure; J96.01 Acute respiratory failure with hypoxia; I31.39 Other pericardial effusion (noninflammatory); R57.1 Hypovolemic shock; I50.23 Acute on chronic systolic (congestive) heart failure; E87.1 Hypo-osmolality and hyponatremia; I48.20 Chronic atrial fibrillation, unspecified; E87.20 Acidosis, unspecified; Z66 Do not resuscitate; Z51.5 Encounter for palliative care; A41.9 Sepsis, unspecified organism; R65.21 Severe sepsis with septic shock; D63.0 Anemia in neoplastic disease; F31.9 Bipolar disorder, unspecified; I08.1 Rheumatic disorders of both mitral and tricuspid valves; D61.818 Other pancytopenia; F20.9 Schizophrenia, unspecified; M48.061 Spinal stenosis, lumbar region without neurogenic claudication; M84.48XA Pathological fracture, other site, initial encounter for fracture; M46.46 Discitis, unspecified, lumbar region; M46.26 Osteomyelitis of vertebra, lumbar region; G89.3 Neoplasm related pain (acute) (chronic); M46.27 Osteomyelitis of vertebra, lumbosacral region; K56.600 Partial intestinal obstruction, unspecified as to cause; F06.4 Anxiety disorder due to known physiological condition; E83.42 Hypomagnesemia; E53.8 Deficiency of other specified B group vitamins; D75.89 Other specified diseases of blood and blood-forming organs; E86.0 Dehydration; E87.6 Hypokalemia; E83.51 Hypocalcemia; E83.39 Other disorders of phosphorus metabolism; B96.89 Other specified bacterial agents as the cause of diseases classified elsewhere; I95.9 Hypotension, unspecified; R00.0 Tachycardia, unspecified; D80.1 Nonfamilial hypogammaglobulinemia; Z98.82 Breast implant status; Z53.09 Procedure and treatment not carried out because of other contraindication; Z86.718 Personal history of other venous thrombosis and embolism; Z86.711 Personal history of pulmonary embolism; Z79.01 Long term (current) use of anticoagulants; Z79.899 Other long term (current) drug therapy; Z85.3 Personal history of malignant neoplasm of breast; Z90.49 Acquired absence of other specified parts of digestive tract; Z87.19 Personal history of other diseases of the digestive system; Z98.51 Tubal ligation status
CPT/HCPCS: 36415; 36573; 36600; 62267; 71045; 72131; 72158; 74018; 74177; 80048; 80053; 81003; 82306; 82330; 82784; 82805; 83605; 83735; 83880; 83883; 84100; 84145; 84165; 85025; 85027; 85610; 85652; 85730; 86022; 86140; 87040; 87045; 87046; 87070; 87075; 87077; 87186; 87205; 87324; 93005; 93306; 94660; 96361; 96365; 96366; 96367; 96375; 99285